=== PATIENT | male | born 1965 | race Caucasian/White ===

== ENCOUNTER 2019-01-13 03:36 | Emergency (ER) | payer OTHER, SELFPAY ==
[2019-01-13 03:40] VITALS: BP 136/87; PULSE 99; RESP 18; TEMP 36.3; O2SAT 100
--- NOTE | 2019-01-13 03:52 | W.ED.GENAD ---
Discharge Plan Disposition Patient Disposition: HOME Discharge Details Chief Complaint: Cellulitis Clinical Impression: Acute paronychia of finger of right hand Primary Care Provider: Maciej Szymanski ED Provider: Yoav Trejo Home Meds and New Rx's Prescriptions: New cephalexin [Keflex] 500 mg capsule 500 mg PO QID Qty: 27 RF: 0 Continued loratadine 10 MG tablet 10 mg PO DAILY PRN RF: 0 TEST STRIPS 1 EACH strip 1 ea Miscellaneous BID Qty: 180 RF: 4 Prilosec OTC 20 MG tablet,delayed release (DR/EC) 1 tab PO BID Qty: 180 RF: 4 ascorbic acid (vitamin C) [Vitamin C] 500 MG tablet 1 tab PO BID RF: 0 fluticasone propionate 16 GM spray,suspension 1 - 2 spr NS DAILY PRNQty: 1 RF: 1 glucosam-chond ug-hfhelg-[id number] ac 1 EACH capsule 2 ea PO BID RF: 0 ENBREL SURECLICK 50 MG/1 ML PEN.INJCTR 50 mg SQ Weekly RF: 0 Jardiance 25 MG tablet 25 mg PO DAILY Qty: 90 RF: 3 metformin 1,000 MG tablet 1,000 mg PO BID Qty: 180 RF: 4 Novolog Flexpen U-100 Insulin 100 UNIT/1 ML insulin pen 2 - 5 SQ DAILY RF: 0 meloxicam 15 mg tablet 15 mg PO DAILY Qty: 60 RF: 6 Lantus Solostar U-100 Insulin 100 unit/mL (3 mL) insulin pen 10 unit IM/SC BID Qty: 3 RF: 12 glipizide 5 mg tablet 10 mg PO BID Qty: 120 RF: 5 No Action BD Insulin Syringe 1 EACH syringe 1 ea Miscellaneous BID Qty: 200 RF: 3 FreeStyle Lite Strips 1 EACH strip 1 ea Miscellaneous TID Qty: 180 RF: 4 pen needle, diabetic [Novofine 32] 32 gauge x 1/4 needle 1 ea Miscellaneous DAILY Qty: 90 RF: 3 pen needle, diabetic [BD Ultra-Fine Estefanía Pen Needle] 32 gauge x 5/32 needle 1 ea Miscellaneous BID Qty: 200 RF: 3 Discharge Instructions Instructions: Paronychia (ED) Additional Instructions: Soak your finger 3-4 times a day for the next 1 week. Please stop biting your nails. Biting your nails predisposes infection. Please contact your primary care physician to arrange follow-up. Return to the ER for any worsening or new concerning symptoms. Referrals: Maciej Szymanski, [Primary Care Provider] - Discharge Data Discharge Date/Time-TO BE ENTERED AT DEPARTURE: 01/13/19 04:25 Medical Decision Making 53-year-old male with insulin-dependent diabetes here with paronychia right fifth digit. Patient has mild surrounding erythema localized to the distal digit. Incision and drainage performed. Given his history of diabetes, I will treat with Keflex. I recommended and reviewed warm soaks. Glucose elevated today 173. Patient advised to monitor closely and take insulin as prescribed. Patient instructed to follow-up with PCP this week for reassessment. I stressed the importance of this. Pt verbalized understanding of importance of timely follow-up for reassessment. HPI General Mode of arrival: ambulatory. Date/Time Provider Initiated Documentation: 01/13/19 03:51. Limitations to Documentation: no limitations. Information obtained by: patient. HPI Narrative: 53-year-old male presents with chief complaint of right fifth digit pain. Patient notes that pain started yesterday. It has become worse. He noticed swelling and tenderness along his nail bed. He has associated redness localized to the area. No associated fever. Patient is a diabetic and compliant with insulin. Related Data Home Medications Medication Instructions Recorded Confirmed loratadine 10 mg PO DAILY PRN tab-cap 12/29/12 01/13/19 Prilosec OTC 1 tab PO BID #180 tab-cap 10/19/14 01/13/19 BD Insulin Syringe #200 syringe 04/19/15 11/10/18 ascorbic acid (vitamin C) [Vitamin 1 tab PO BID 06/02/15 01/13/19 C] fluticasone propionate 1 - 2 spr NS DAILY PRN #1 bottle 10/15/15 01/13/19 glucosam-chond qo-jfpttu-qf ac 2 ea PO BID 09/30/17 01/13/19 FreeStyle Lite Strips #180 strip 11/25/17 11/10/18 Enbrel Sureclick 50 mg SQ Weekly 12/09/17 01/13/19 Jardiance 25 mg PO DAILY #90 tab-cap 01/02/18 01/13/19 metformin 1,000 mg PO BID #180 tab-cap 05/01/18 01/13/19 Novolog Flexpen U-100 Insulin 2 - 5 SQ DAILY 06/10/18 11/10/18 insulin glargine (U-100) 100 10 unit IM/SC BID #3 ml 09/01/18 01/13/19 unit/mL (3 mL) subcutaneous pen meloxicam 15 mg tablet 15 mg PO DAILY #60 tab-cap 09/01/18 01/13/19 pen needle, diabetic 32 gauge x #90 unit 11/06/18 11/10/1810/30 pen needle, diabetic 32 gauge x #200 ndl 11/10/18 11/10/18 glipizide 5 mg tablet 10 mg PO BID #120 tab 11/18/18 01/13/19 cephalexin [Keflex] 500 mg PO QID #27 cap 01/13/19 Previous Rx's Medication Instructions Recorded FreeStyle Lite Strips #180 strip 11/25/17 Jardiance 25 mg PO DAILY #90 tab-cap 01/02/18 metformin 1,000 mg PO BID #180 tab-cap 05/01/18 insulin glargine (U-100) 100 10 unit IM/SC BID #3 ml 09/01/18 unit/mL (3 mL) subcutaneous pen meloxicam 15 mg tablet 15 mg PO DAILY #60 tab-cap 09/01/18 pen needle, diabetic 32 gauge x #90 unit 11/06/1810/30 pen needle, diabetic 32 gauge x #200 ndl 11/10/18 glipizide 5 mg tablet 10 mg PO BID #120 tab 11/18/18 cephalexin [Keflex] 500 mg PO QID #27 cap 01/13/19 Allergies Allergy/AdvReac Type Severity Reaction Status Date / Time Sulfa (Sulfonamide AdvReac Intermediate NAUSEA Verified 01/13/19 03:40 Antibiotics) DUST Allergy Intermediate NASAL Uncoded 01/13/19 03:40 CONGESTION General Stated Complaint: Cellulitis MARIA GUADALUPE: 5 Review of Systems Constitutional Denies fever(s) Integumentary/Breasts Reports as per [facility] Medical History Huang esophagus (Acute) Psoriatic arthritis (Acute 10/02/12) Psoriasis (Acute) Peptic reflux disease (Acute) Osteoporosis (Acute 08/18/15) 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 Grandfather Myocardial infarction Grandfather Myocardial infarction Grandmother No problems noted. Grandmother Myocardial infarction Brother No problems noted. Brother No problems noted. Brother No problems noted. Son Adopted Daughter Adopted Social History Smoking/Tobacco Use Status: Never Alcohol Intake: never Drug use: Never Substance use type: does not use Pets and animals: No Frequency: 5-6 times per week Special yari needs: No Do you feel safe at home: Yes Do you feel safe in your relationship?: Yes Exam Const General: cooperative and healthy appearing Orientation: alert and awake Skin Nails: dystrophic and yellow and thickened Other: Paronychia right fifth digit Course Vital Signs Temperature 36.3 C L 01/13/19 03:40 Pulse 99 H 01/13/19 03:40 Respiratory Rate 18 01/13/19 03:40 Blood Pressure 136/87 01/13/19 03:40 Pulse Oximetry 100 01/13/19 03:40 Temperature 36.3 C L 01/13/19 03:40 Temperature Source Temporal Artery Scan 01/13/19 03:40 Pulse 99 H 01/13/19 03:40 Respiratory Rate 18 01/13/19 03:40 Respiratory Effort 01/13/19 03:40 Blood Pressure 136/87 01/13/19 03:40 Blood Pressure Position Sitting 01/13/19 03:40 Pulse Oximetry 100 01/13/19 03:40 Oxygen Delivery Method Room Air 01/13/19 03:40 Oxygen Flow Rate 0 01/13/19 03:40 Procedures Abscess I/D Site: Hand Side (if applicable): Right Local Anesthetic: Bupivicaine 0.5% (digitial block) Amount of anesthesia used (mL): 2 Technique: Incised with #11 Blade Amount of fluid expressed (mL): 1 Packing used?: None Complications: Other (none) Nerve Block Nerve Block 1: Time out performed: Yes Local Anesthetic: Bupivicaine 0.5% Amount of anesthesia used (mL): 2 Side: right Nerve Blocks: digital Procedure Successful: Yes Patient Tolerated Procedure: well Complications: none Additional Comments: Prepped with betadine and sterile technique observed
--- NOTE | 2019-01-13 03:57 | ED.GENADUL_ITS ---
Discharge Plan Disposition Patient Disposition: HOME Discharge Details Chief Complaint: Cellulitis Clinical Impression: Acute paronychia of finger of right hand Primary Care Provider: Maciej Szymanski ED Provider: Yoav Trejo Home Meds and New Rx's Prescriptions: New cephalexin [Keflex] 500 mg capsule 500 mg PO QID Qty: 27 RF: 0 Continued loratadine 10 MG tablet 10 mg PO DAILY PRN RF: 0 TEST STRIPS 1 EACH strip 1 ea Miscellaneous BID Qty: 180 RF: 4 Prilosec OTC 20 MG tablet,delayed release (DR/EC) 1 tab PO BID Qty: 180 RF: 4 ascorbic acid (vitamin C) [Vitamin C] 500 MG tablet 1 tab PO BID RF: 0 fluticasone propionate 16 GM spray,suspension 1 - 2 spr NS DAILY PRNQty: 1 RF: 1 glucosam-chond ly-gpfnuk-od ac 1 EACH capsule 2 ea PO BID RF: 0 ENBREL SURECLICK 50 MG/1 ML PEN.INJCTR 50 mg SQ Weekly RF: 0 Jardiance 25 MG tablet 25 mg PO DAILY Qty: 90 RF: 3 metformin 1,000 MG tablet 1,000 mg PO BID Qty: 180 RF: 4 Novolog Flexpen U-100 Insulin 100 UNIT/1 ML insulin pen 2 - 5 SQ DAILY RF: 0 meloxicam 15 mg tablet 15 mg PO DAILY Qty: 60 RF: 6 Lantus Solostar U-100 Insulin 100 unit/mL (3 mL) insulin pen 10 unit IM/SC BID Qty: 3 RF: 12 glipizide 5 mg tablet 10 mg PO BID Qty: 120 RF: 5 No Action BD Insulin Syringe 1 EACH syringe 1 ea Miscellaneous BID Qty: 200 RF: 3 FreeStyle Lite Strips 1 EACH strip 1 ea Miscellaneous TID Qty: 180 RF: 4 pen needle, diabetic [Novofine 32] 32 gauge x 1/4 needle 1 ea Miscellaneous DAILY Qty: 90 RF: 3 pen needle, diabetic [BD Ultra-Fine Estefanía Pen Needle] 32 gauge x 5/32 needle 1 ea Miscellaneous BID Qty: 200 RF: 3 Discharge Instructions Instructions: Paronychia (ED) Additional Instructions: Soak your finger 3-4 times a day for the next 1 week. Please stop biting your nails. Biting your nails predisposes infection. Please contact your primary care physician to arrange follow-up. Return to the ER for any worsening or new concerning symptoms. Referrals: Maciej Szymanski, [Primary Care Provider] - Discharge Data Discharge Date/Time-TO BE ENTERED AT DEPARTURE: 01/13/19 04:25 Medical Decision Making 53-year-old male with insulin-dependent diabetes here with paronychia right fifth digit. Patient has mild surrounding erythema localized to the distal digit. Incision and drainage performed. Given his history of diabetes, I will treat with Keflex. I recommended and reviewed warm soaks. Glucose elevated today 173. Patient advised to monitor closely and take insulin as prescribed. Patient instructed to follow-up with PCP this week for reassessment. I stressed the importance of this. Pt verbalized understanding of importance of timely follow-up for reassessment. HPI General Mode of arrival: ambulatory . Date/Time Provider Initiated Documentation: 01/13/19 03:51 . Limitations to Documentation: no limitations . Information obtained by: patient . HPI Narrative: 53-year-old male presents with chief complaint of right fifth digit pain. Patient notes that pain started yesterday. It has become worse. He noticed swelling and tenderness along his nail bed. He has associated redness localized to the area. No associated fever. Patient is a diabetic and compliant with insulin. Related Data Home Medications Medication Instructions Recorded Confirmed loratadine 10 mg PO DAILY PRN tab-cap 12/29/12 01/13/19 Prilosec OTC 1 tab PO BID #180 tab-cap 10/19/14 01/13/19 BD Insulin Syringe #200 syringe 04/19/15 11/10/18 ascorbic acid (vitamin C) [Vitamin 1 tab PO BID 06/02/15 01/13/19 C] fluticasone propionate 1 - 2 spr NS DAILY PRN #1 bottle 10/15/15 01/13/19 glucosam-chond ml-aajrua-an ac 2 ea PO BID 09/30/17 01/13/19 FreeStyle Lite Strips #180 strip 11/25/17 11/10/18 Enbrel Sureclick 50 mg SQ Weekly 12/09/17 01/13/19 Jardiance 25 mg PO DAILY #90 tab-cap 01/02/18 01/13/19 metformin 1,000 mg PO BID #180 tab-cap 05/01/18 01/13/19 Novolog Flexpen U-100 Insulin 2 - 5 SQ DAILY 06/10/18 11/10/18 insulin glargine (U-100) 100 10 unit IM/SC BID #3 ml 09/01/18 01/13/19 unit/mL (3 mL) subcutaneous pen meloxicam 15 mg tablet 15 mg PO DAILY #60 tab-cap 09/01/18 01/13/19 pen needle, diabetic 32 gauge x #90 unit 11/06/18 11/10/1810/30 pen needle, diabetic 32 gauge x #200 ndl 11/10/18 11/10/18 glipizide 5 mg tablet 10 mg PO BID #120 tab 11/18/18 01/13/19 cephalexin [Keflex] 500 mg PO QID #27 cap 01/13/19 Previous Rx's Medication Instructions Recorded FreeStyle Lite Strips #180 strip 11/25/17 Jardiance 25 mg PO DAILY #90 tab-cap 01/02/18 metformin 1,000 mg PO BID #180 tab-cap 05/01/18 insulin glargine (U-100) 100 10 unit IM/SC BID #3 ml 09/01/18 unit/mL (3 mL) subcutaneous pen meloxicam 15 mg tablet 15 mg PO DAILY #60 tab-cap 09/01/18 pen needle, diabetic 32 gauge x #90 unit 11/06/1810/30 pen needle, diabetic 32 gauge x #200 ndl 11/10/18 glipizide 5 mg tablet 10 mg PO BID #120 tab 11/18/18 cephalexin [Keflex] 500 mg PO QID #27 cap 01/13/19 Allergies Allergy/AdvReac Type Severity Reaction Status Date / Time Sulfa (Sulfonamide AdvReac Intermediate NAUSEA Verified 01/13/19 03:40 Antibiotics) DUST Allergy Intermediate NASAL Uncoded 01/13/19 03:40 CONGESTION General Stated Complaint: Cellulitis MARIA GUADALUPE: 5 Review of Systems Constitutional Denies fever(s) Integumentary/Breasts Reports as per [facility] Medical History Huang esophagus (Acute) Psoriatic arthritis (Acute 10/02/12) Psoriasis (Acute) Peptic reflux disease (Acute) Osteoporosis (Acute 08/18/15) 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 Grandfather Myocardial infarction Grandfather Myocardial infarction Grandmother No problems noted. Grandmother Myocardial infarction Brother No problems noted. Brother No problems noted. Brother No problems noted. Son Adopted Daughter Adopted Social History Smoking/Tobacco Use Status: Never Alcohol Intake: never Drug use: Never Substance use type: does not use Pets and animals: No Frequency: 5-6 times per week Special yari needs: No Do you feel safe at home: Yes Do you feel safe in your relationship?: Yes Exam Const General: cooperative and healthy appearing Orientation: alert and awake Skin Nails: dystrophic and yellow and thickened Other: Paronychia right fifth digit Course Vital Signs Temperature 36.3 C L 01/13/19 03:40 Pulse 99 H 01/13/19 03:40 Respiratory Rate 18 01/13/19 03:40 Blood Pressure 136/87 01/13/19 03:40 Pulse Oximetry 100 01/13/19 03:40 Temperature 36.3 C L 01/13/19 03:40 Temperature Source Temporal Artery Scan 01/13/19 03:40 Pulse 99 H 01/13/19 03:40 Respiratory Rate 18 01/13/19 03:40 Respiratory Effort 01/13/19 03:40 Blood Pressure 136/87 01/13/19 03:40 Blood Pressure Position Sitting 01/13/19 03:40 Pulse Oximetry 100 01/13/19 03:40 Oxygen Delivery Method Room Air 01/13/19 03:40 Oxygen Flow Rate 0 01/13/19 03:40 Procedures Abscess I/D Site: Hand Side (if applicable): Right Local Anesthetic: Bupivicaine 0.5% (digitial block) Amount of anesthesia used (mL): 2 Technique: Incised with #11 Blade Amount of fluid expressed (mL): 1 Packing used?: None Complications: Other (none) Nerve Block Nerve Block 1: Time out performed: Yes Local Anesthetic: Bupivicaine 0.5% Amount of anesthesia used (mL): 2 Side: right Nerve Blocks: digital Procedure Successful: Yes Patient Tolerated Procedure: well Complications: none Additional Comments: Prepped with betadine and sterile technique observed
[2019-01-13] MEDS: Bupivacaine 0.5% Pres-Free 30 ML VIAL IJ (04:00)
[2019-01-13] MEDS: Cephalexin 500 MG CAP PO (04:08)
== END 2019-01-13 04:26 | disposition home or self-care (01) ==
LOC: ER 03:59
PROVIDERS: Emergency Provider Student in an Organized Health Care Education/Training Program; PCP Emergency Medicine
DX: L03.011 Cellulitis of right finger (principal); E11.9 Type 2 diabetes mellitus without complications; Z79.4 Long term (current) use of insulin
CPT/HCPCS: 10060; 36416; 82962

== ENCOUNTER 2019-01-27 16:29 | Outpatient (CLI) | payer OTHER, SELFPAY ==
[2019-01-27 18:31] LABS: Anion Gap 9.5 mmol/L (3-11); BUN 24 mg/dL (7-18); CO2 28.5 mmol/L (21.0-32.0); CREATININE 1.42 mg/dL (0.70-1.30); Chloride 98 mmol/L (98-107); Estimated GFR 52.35 (mL/min/1.73m2); Glucose 368 mg/dL (70-100); Potassium 4.9 mmol/L (3.5-5.1); Sodium 136 mmol/L (136-145)
[2019-01-27 18:50] LABS: Hemoglobin A1C 9.4 % (4.5-6.2)
== END 2019-01-27 16:49 ==
PROVIDERS: PCP Emergency Medicine; Visit Provider Emergency Medicine
DX: I10 Essential (primary) hypertension (principal); E11.9 Type 2 diabetes mellitus without complications; K22.70 Barrett's esophagus without dysplasia
CPT/HCPCS: 36415; 80048; 83036

== ENCOUNTER 2019-09-07 15:02 | Outpatient (CLI) | payer OTHER, SELFPAY ==
[2019-09-07 16:23] LABS: Hemoglobin A1C 10.6 % (4.5-6.2)
[2019-09-07 16:24] LABS: Anion Gap 8.5 mmol/L (3-11); BUN 22 mg/dL (7-18); CO2 27.5 mmol/L (21.0-32.0); CREATININE 1.35 mg/dL (0.70-1.30); Calcium 9.1 mg/dL (8.5-10.1); Chloride 102 mmol/L (98-107); Cholesterol 131 mg/dL (50-200); Glucose 195 mg/dL (70-100); HDL Cholesterol 45 mg/dL (40-60); Potassium 4.9 mmol/L (3.5-5.1); Sodium 138 mmol/L (136-145)
[2019-09-07 16:29] LABS: COMMENT (LAB VIEW ONLY) 54.47 mg/dL; Microalb ug/mg Crea 4.6 ug/mg Cr
[2019-09-07 16:38] LABS: Triglyceride < 25 mg/dL (30-150)
[2019-09-07 16:52] LABS: LDL CHOLESTEROL 84 mg/dL (<100)
== END 2019-09-07 15:22 ==
PROVIDERS: PCP Emergency Medicine; Visit Provider Emergency Medicine
DX: E11.9 Type 2 diabetes mellitus without complications (principal); I10 Essential (primary) hypertension; Z79.4 Long term (current) use of insulin; Z13.89 Encounter for screening for other disorder
CPT/HCPCS: 36415; 80048; 80061; 83721; 82043; 82570; 83036

== ENCOUNTER 2020-03-22 16:12 | Emergency (ER) | payer OTHER, SELFPAY ==
--- NOTE | 2020-03-22 16:15 | DI.RAD_ITS ---
EXAM: XR FINGER RT MIDDLE CLINICAL HISTORY: pain swelling, tip. TECHNIQUE: 2D digital imaging was performed. COMPARISON: CR LEFT WRIST LIMITED from 11/26/2012 FINDINGS: BONES: No acute fracture is present. No bony destructive lesion is seen. JOINTS: No dislocation present. SOFT TISSUE: Soft tissue swelling is seen around the distal phalanx. No abnormal gas collection or f oreign body is seen. No soft tissue calcification or mass is visible. IMPRESSION: Soft tissue swelling of the distal phalanx. No evidence of fracture or foreign body.. DATA REPOSITORY: RADIATION DOSE DELIVERED:
--- NOTE | 2020-03-22 16:33 | ED.GENADUL_ITS ---
Discharge Plan Disposition Patient Disposition: HOME Condition: Stable Discharge Details Chief Complaint: Vascular Clinical Impression: Felon of finger of right hand Primary Care Provider: Maciej Szymanski ED Provider: Olive Pan Home Meds and New Rx's Prescriptions: New amoxicillin-pot clavulanate [Augmentin] 875-125 mg tablet 1 tab PO BID 10 Days Qty: 20 RF: 0 Continued loratadine 10 MG tablet 10 mg PO DAILY PRN RF: 0 TEST STRIPS 1 EACH strip 1 ea Miscellaneous BID Qty: 180 RF: 4 Prilosec OTC 20 MG tablet,delayed release (DR/EC) 1 tab PO BID Qty: 180 RF: 4 (DME) BD Insulin Syringe 1 EACH syringe 1 ea Miscellaneous BID Qty: 200 RF: 3 ascorbic acid (vitamin C) [Vitamin C] 500 MG tablet 1 tab PO BID RF: 0 fluticasone propionate 16 GM spray,suspension 1 - 2 spr NS DAILY PRNQty: 1 RF: 1 glucosam-chond af-jotfqz-tr ac 1 EACH capsule 2 ea PO BID RF: 0 ENBREL SURECLICK 50 MG/1 ML PEN.INJCTR 50 mg SQ Weekly RF: 0 (DME) pen needle, diabetic [Novofine 32] 32 gauge x 1/4 needle 1 ea Miscellaneous DAILY Qty: 90 RF: 3 (DME) FreeStyle Lite Strips strip 1 ea Miscellaneous TID Qty: 180 RF: 4 metformin 1,000 mg tablet 1,000 mg PO BID Qty: 180 RF: 4 glipizide 5 mg tablet 10 mg PO BID Qty: 360 RF: 3 insulin aspart U-100 [Novolog Flexpen U-100 Insulin] 100 unit/mL (3 mL) i nsulin pen 5 unit subcut DAILY Qty: 15 RF: 0 Lantus Solostar U-100 Insulin 100 unit/mL (3 mL) insulin pen 10 unit IM/SC BID Qty: 15 RF: 12 meloxicam 15 mg tablet 15 mg PO DAILY Qty: 60 RF: 1 (DME) pen needle, diabetic [BD Ultra-Fine Estefanía Pen Needle] 32 gauge x 5/32 needle 1 ea Miscellaneous BID Qty: 200 RF: 3 Jardiance 25 mg tablet 25 mg PO DAILY Qty: 90 RF: 3 Discharge Instructions Instructions: Cellulitis (ED) Additional Instructions: Follow up with primary care provider in 3-5 days. Return to ED sooner if any worsening or concerns. Increase oral fluids. Keep dressing on for 12 to 24 hours. He can do warm soaks with soap and water daily. Keep clean and dry. Return for any worsening infection, red streaks or swelling. Take antibiotics as directed. Follow-up with orthopedics within 3 to 5 days. Referrals: Maciej Szymanski DO [Primary Care Provider] - Odilon Carmona MD [ [facility] STAFF PHYSICIAN] - Medical Decision Making 54-year-old diabetic male presents with right middle finger tip infection this is consistent with a felon. He denies any known injury. No fever or chills. He agrees verbally to a digital block with an I&D. At this time imaging was ordered to rule out foreign body versus osteomyelitis. TECHNIQUE: Imaging protocol: XR Right fingers. Views: Minimum 2 views. COMPARISON: No relevant prior studies available. FINDINGS: Bones/joints: No acute fracture. Joint spaces are maintained. Soft tissues: Soft tissue edema about the proximal interphalangeal joint. No radiodense foreign body. IMPRESSION: Soft tissue edema about the proximal interphalangeal joint without underlying fracture or joint malalignment. Thank you for allowing us to participate in the care of your patient. Digital block performed as noted in procedure note above, incision and drainage the distal tip to express underlying abscess. Moderate amount of purulent serosanguineous fluid expressed. Patient tolerated well. Xeroform gauze nonadherent dressing and pressure dressing applied. Patient instructed on home care, verbalized understanding. Given strict return instructions to return for any signs of infection or worsening. Patient was given Augmentin tablet in department prior to discharge. Placed on Augmentin twice daily x10 days. Instructed to follow-up with orthopedics and placed on care management list. Differential diagnosis includes felon, paronychia, hematoma, retained foreign body, osteomyelitis, HPI General Date/Time Provider Initiated Documentation: 03/22/20 16:14 . Limitations to Documentation: no limitations . Information obtained by: patient . HPI Narrative: 54-year-old male presents with right middle finger tip infection for approximately 2 days. He is a diabetic and denies any injury. He denies any fever chills or any other symptoms. Related Data Home Medications Medication Instructions Recorded Confirmed loratadine 10 mg PO DAILY PRN tab-cap 12/29/12 09/07/19 Prilosec OTC 1 tab PO BID #180 tab-cap 10/19/14 09/07/19 BD Insulin Syringe #200 syringe 04/19/15 09/07/19 ascorbic acid (vitamin C) [Vitamin 1 tab PO BID 06/02/15 09/07/19 C] fluticasone propionate 1 - 2 spr NS DAILY PRN #1 bottle 10/15/15 09/07/19 glucosam-chond tx-tqbvcn-rc ac 2 ea PO BID 09/30/17 09/07/19 Enbrel Sureclick 50 mg SQ Weekly 12/09/17 09/07/19 pen needle, diabetic 32 gauge x #90 unit 11/06/18 09/07/1910/30 blood sugar diagnostic #180 strip 04/23/19 09/07/19 metformin 1,000 mg tablet 1,000 mg PO BID #180 tab-cap 06/22/19 09/07/19 glipizide 5 mg tablet 10 mg PO BID #360 tab 07/30/19 09/07/19 insulin aspart U-100 100 unit/mL 5 unit SUBCUT DAILY #15 ml 11/25/19 (3 mL) subcutaneous pen insulin glargine 100 unit/mL (3 10 unit IM/SC BID #15 ml 11/29/19 mL) subcutaneous pen meloxicam 15 mg tablet 15 mg PO DAILY #60 tab-cap 11/29/19 pen needle, diabetic 32 gauge x #200 ndl 12/31/19 empagliflozin 25 mg tablet 25 mg PO DAILY #90 tab-cap 02/18/20 amoxicillin-pot clavulanate 1 tab PO BID 10 Days #20 tab 03/22/20 [Augmentin] Previous Rx's Medication Instructions Recorded pen needle, diabetic 32 gauge x #90 unit 11/06/1810/30 blood sugar diagnostic #180 strip 04/23/19 metformin 1,000 mg tablet 1,000 mg PO BID #180 tab-cap 06/22/19 glipizide 5 mg tablet 10 mg PO BID #360 tab 07/30/19 insulin aspart U-100 100 unit/mL 5 unit SUBCUT DAILY #15 ml 11/25/19 (3 mL) subcutaneous pen insulin glargine 100 unit/mL (3 10 unit IM/SC BID #15 ml 11/29/19 mL) subcutaneous pen meloxicam 15 mg tablet 15 mg PO DAILY #60 tab-cap 11/29/19 pen needle, diabetic 32 gauge x #200 ndl 12/31/19 empagliflozin 25 mg tablet 25 mg PO DAILY #90 tab-cap 02/18/20 amoxicillin-pot clavulanate 1 tab PO BID 10 Days #20 tab 03/22/20 [Augmentin] Allergies Allergy/AdvReac Type Severity Reaction Status Date / Time Sulfa (Sulfonamide AdvReac Intermediate NAUSEA Verified 09/07/19 14:15 Antibiotics) DUST Allergy Intermediate NASAL Uncoded 01/13/19 03:40 CONGESTION General Stated Complaint: Vascular MARIA GUADALUPE: 4 Review of Systems Narrative: Constitutional: Negative for weight loss, alert and oriented, well groomed, normal body habitus, appears comfortable. HEENT: Denies trauma, headaches, blurry vision, nasal discharge, sore throat, trouble swallowing. Chest: Denies chest pain, palpitations, irregular rhythm, hypertension. Respiratory: Denies Shortness of breath, cough, hemoptysis. GI: Denies abdominal pain, nausea, vomiting, diarrhea, constipation. : Denies dysuria, hematuria, flank pain, rectal bleeding. Extremities: Right middle fingertip infection. Neuro: Denies dizziness, blurry vision, weakness, syncope, headache or facial numbness. Hematologic: Denies easy bruising, intolerance to heat or cold, hair loss. All systems reviewed & are unremarkable except as noted in HPI and below [facility] Medical History Anemia (Acute 08/18/15) iron deficiency extensive GI workup. Seen Heme at [facility]. idiopathic but perhaps occult GI bleed Arthritis (Acute 10/02/12) PSORIATIC Huang esophagus (Acute) Cataract (Acute) O.D. 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 Maternal Grandfather Myocardial infarction Paternal Grandfather Myocardial infarction Maternal Grandmother No problems noted. Paternal Grandmother Myocardial infarction Brother No problems noted. Brother No problems noted. Brother No problems noted. Son Adopted Daughter Adopted Social History Smoking/Tobacco Use Status: Never Alcohol Intake: never Drug use: Never Substance use type: does not use Caregiver/Support person: No Household members: spouse Housing: apartment Communication Needs: None current occupation: [employer] Pets and animals: No Sexually active: Yes Do you think of yourself as: straight/heterosexual Current gender identity: female What is your relationship status?: How often do you talk on the phone with friends or family?: three or more times per week How often do you get together with friends or relatives?: three or more times per week How often do you attend hinduism or hinduism services?: decline to answer Do you belong to any clubs or organized social groups?: yes Panel score (0-1 are the most socially isolated patients): 3 What type of physical activity do you participate in: decline to answer Duration: decline to answer Frequency: decline to answer Sandrita/Synagogue: None Special sandrita needs: No Seatbelt use: always Helmet use: No Drive intox or ride w/intox driver/merchandiser: No Do you feel safe at home: Yes Do you feel safe in your relationship?: Yes Exam Narrative Exam Narrative: Constitutional: Alert and oriented x3. Appears stated age. Normal body habitus. Head: Normocephalic, no trauma. Eyes: Pupils PERRLA, Red reflex noted, EOM's intact. Eyelids symmetrical without lesions, discharge, or swelling. ENT: Bilateral TM's WNL, External ear normal to inspection, no mastoid TTP, swelling, or erythema, Nasal turbinates WNL, no nasal discharge. Normal dentition, Posterior pharynx WNL, no exudate. Chest: RRR, Normal S1, S2, distal pulses intact. Resp: Lungs clear to auscultation bilaterally, no wheezes, rales, or rhonchi. Musculoskeletal: Normal gait, 5/5 strength to all four extremities. Skin: No suspicious rashes or lesions. Capillary refill less than 2 sec. distal tip right middle finger swollen, area of darkened tissue noted, tender to palpation. This is consistent with a felon. Neurologic: Cranial nerves II-XII intact. Alert and oriented x 3. DTR's intact. Hematologic/Lymphatic: No ecchymosis, no lymphadenopathy. Course Vital Signs Vital signs: Temperature Source Skin 03/22/20 16:26 Blood Pressure Position Sitting 03/22/20 16:26 Oxygen Delivery Method Room Air 03/22/20 16:26 Oxygen Flow Rate 0 03/22/20 16:26 Pain Level 4 03/22/20 16:26 Procedures Nerve Block Nerve Block 1: Time out performed: Yes Local Anesthetic: Lidocaine 1% and Bupivicaine 0.5% Amount of anesthesia used (mL): 4 Side: right Nerve Blocks: digital (Ring block base of right middle finger) Procedure Successful: Yes Patient Tolerated Procedure: well and no complications Complications: none Other Description: Incision and drainage. Small incision to the distal tip of the medial aspect of the right middle finger. Moderate amount of purulent and serosanguineous fluid expressed. Patient tolerated well. Xeroform gauze placed and pressure dressing.
--- NOTE | 2020-03-22 17:19 | DI.VRAD_ITS ---
PROCEDURE INFORMATION: Exam: XR Right Finger(s) Exam date and time: 03/22/2020 5:09 PM Age: 54 years old Clinical indication: Pain; Finger(s); Right TECHNIQUE: Imaging protocol: XR Right fingers. Views: Minimum 2 views. COMPARISON: No relevant prior studies available. FINDINGS: Bones/joints: No acute fracture. Joint spaces are maintained. Soft tissues: Soft tissue edema about the proximal interphalangeal joint. No radiodense foreign body. IMPRESSION: Soft tissue edema about the proximal interphalangeal joint without underlying fracture or joint malalignment. Dictated and Authenticated by: Juan Cross MD. Ordering:DANUTA Schaefer MD
[2020-03-22 18:06] VITALS: BP 124/86; PULSE 94; RESP 16; TEMP 36.6; O2SAT 95
[2020-03-22] MEDS: Amoxicillin 875/Clav. 125 TAB PO (18:08)
[2020-03-22] MEDS: Bupivacaine 0.5% Pres-Free 30 ML VIAL IJ (18:08)
[2020-03-22] MEDS: Lidocaine 1% Multi-Dose 50 ML VIAL IJ (18:09)
== END 2020-03-22 18:39 | disposition home or self-care (01) ==
PROVIDERS: Emergency Provider Registered Nurse Emergency; PCP Emergency Medicine
DX: L03.011 Cellulitis of right finger (principal); E11.65 Type 2 diabetes mellitus with hyperglycemia; Z79.4 Long term (current) use of insulin
CPT/HCPCS: 10060; 99283; 73140; 99282

== ENCOUNTER 2020-05-19 21:39 | Outpatient (REF) | payer OTHER, SELFPAY ==
[2020-05-19 20:55] LABS: Abs Immature Grans 0.01 k/cumm (0.0-0.09); Absolute Basophil Count 0.06 k/cumm (0.0-0.2); Absolute Eosinophil Count 0.26 k/cumm (0.0-0.7); Absolute Lymphocyte Count 2.03 k/cumm (1.2-3.4); Absolute Monocyte Count 0.73 k/cumm (0.11-0.7); Absolute Neutrophil Count 3.91 k/cumm (1.2-6.7); Basophils % 0.9; Eosinophils % 3.7; HCT 45.3 % (40.0-50.0); HGB 15.3 g/dL (13.5-17.5); Immature Grans % 0.1 %; Mean Corp. HGB Concentration 33.8 g/dL (32.0-36.0); Mean Corpuscular Volume 82.8 fL (80-95); Mean Platelet Volume 9.4 fL (8.0-11.0); Monocytes % 10.4; Neutrophils % 55.9; Platelet Count 411 x1000/uL (130-400); RBC 5.47 m/cumm (4.50-6.00)
[2020-05-19 21:11] LABS: ALT 28 U/L (16-63); AST 18 U/L (15-37); Albumin 4.7 g/dL (3.4-5.0); Alkaline Phosphatase 118 U/L (46-116); Anion Gap 10.2 mmol/L (3-11); BUN 18 mg/dL (7-18); Bilirubin, Total 0.4 mg/dL (0.2-1.0); C-Reactive Protein 0.12 mg/dL (0.0-0.3); CO2 27.8 mmol/L (21.0-32.0); CREATININE 1.26 mg/dL (0.70-1.30); Calcium 9.6 mg/dL (8.5-10.1); Chloride 100 mmol/L (98-107); Estimated GFR 59.87 (mL/min/1.73m2); Glucose 186 mg/dL (74-106); Potassium 4.5 mmol/L (3.5-5.1); Sodium 138 mmol/L (136-145); Total Protein 8.2 g/dL (6.4-8.2)
[2020-05-19 21:27] LABS: Hemoglobin A1C 9.6 % (3.8-5.6)
[2020-05-19 21:32] LABS: ESR 4 mm/hr (1-20)
== END 2020-05-19 21:59 ==
LOC: LBN 21:39
PROVIDERS: PCP Emergency Medicine; Visit Provider Emergency Medicine
DX: R63.4 Abnormal weight loss (principal); E11.9 Type 2 diabetes mellitus without complications; E03.9 Hypothyroidism, unspecified
CPT/HCPCS: 80053; 85652; 83036; 84443; 85025; 86140

== ENCOUNTER 2020-06-14 08:42 | Emergency (ER) | payer OTHER, SELFPAY ==
--- NOTE | 2020-06-14 09:04 | W.ED.GENAD ---
Discharge Plan Disposition Patient Disposition: HOME Condition: Stable Discharge Details Chief Complaint: DentalOral Clinical Impression: Abscess of buccal space of mouth, Wound, open, nasal cavity Primary Care Provider: Maciej Szymanski ED Provider: Olive Pan Home Meds and New Rx's Prescriptions: New clindamycin HCl 300 mg capsule 300 mg PO BID 10 Days Qty: 20 RF: 0 Continued loratadine 10 MG tablet 10 mg PO DAILY PRN RF: 0 TEST STRIPS 1 EACH strip 1 ea Miscellaneous BID Qty: 180 RF: 4 omeprazole magnesium [Prilosec OTC] 20 MG tablet,delayed release (DR/EC) 1 tab PO BID Qty: 180 RF: 4 (DME) BD Insulin Syringe 1 EACH syringe 1 ea Miscellaneous BID Qty: 200 RF: 3 ascorbic acid (vitamin C) [Vitamin C] 500 MG tablet 1 tab PO BID RF: 0 fluticasone propionate 16 GM spray,suspension 1 - 2 spr NS DAILY PRNQty: 1 RF: 1 glucosam-chond hx-qjdvxf-dy ac 1 EACH capsule 2 ea PO BID RF: 0 ENBREL SURECLICK 50 MG/1 ML PEN.INJCTR 50 mg SQ Weekly RF: 0 (DME) FreeStyle Lite Strips strip 1 ea Miscellaneous TID Qty: 180 RF: 4 metformin 1,000 mg tablet 1,000 mg PO BID Qty: 180 RF: 4 glipizide 5 mg tablet 10 mg PO BID Qty: 360 RF: 3 insulin aspart U-100 [Novolog Flexpen U-100 Insulin] 100 unit/mL (3 mL) insulin pen 5 unit subcut DAILY Qty: 15 RF: 0 Lantus Solostar U-100 Insulin 100 unit/mL (3 mL) insulin pen 10 unit IM/SC BID Qty: 15 RF: 12 (DME) pen needle, diabetic [BD Ultra-Fine Estefanía Pen Needle] 32 gauge x 5/32 needle 1 ea Miscellaneous BID Qty: 200 RF: 3 Jardiance 25 mg tablet 25 mg PO DAILY Qty: 90 RF: 3 meloxicam 15 mg tablet 15 mg PO DAILY Qty: 60 RF: 1 (DME) pen needle, diabetic [Novofine 32] 32 gauge x 1/4 needle 1 ea Miscellaneous DAILY Qty: 90 RF: 3 (DME) pen needle, diabetic [ReliOn Pen Scobey] 32 gauge x 5/32 needle See Rx Instructions .ROUTE .MEDSUPPLY Qty: 100 RF: 3 Discharge Instructions Instructions: Abscess (ED) Additional Instructions: Practice good oral hygiene. Rinse mouth after eating 3 times a day. Take antibiotics as directed. Return to the ED for any worsening swelling, drainage, fever, pain or fatigue or confusion or any concerns. Follow up with primary care provider in 3-5 days. Return to ED sooner if any worsening or concerns. Increase oral fluids. Please take Tylenol with food every 4-6 hours as needed for pain and swelling. Referrals: Maciej Szymanski DO [Primary Care Provider] - Medical Decision Making 54-year-old male presents with a right nare approximately 4 days ago now increased swelling tenderness radiates down into his upper lip. In the mucous membranes there is a swollen area of possible fluctuance with an abscess patient is a diabetic, was treated with antibiotics in February for a finger infection. Plan at this time is to do needle aspiration incision and drainage for possible fluid abscess patient agrees to this, will obtain a wound culture and place patient on antibiotics. Needle aspiration attempted I&D note above, patient tolerated with difficulty complaining of pain, small amount of purulent drainage aspirated, wound group swab obtained sent to lab is pending at this time. Patient is allergic to sulfa will place patient on clindamycin 2 times a day for possible MRSA. This text was generated using [employer]zen[employer] system, please disregard any oddities of phrase or misspellings. HPI General Mode of arrival: ambulatory. Date/Time Provider Initiated Documentation: 06/14/20 08:44. Limitations to Documentation: no limitations. Information obtained by: patient. HPI Narrative: 54-year-old male presents with a right nare approximately 4 days ago now increased swelling tenderness radiates down into his upper lip. In the mucous membranes there is a swollen area of possible fluctuance with an abscess patient is a diabetic, was treated with antibiotics in February for a finger infection. Related Data Home Medications Medication Instructions Recorded Confirmed loratadine 10 mg PO DAILY PRN tab-cap 12/29/12 05/19/20 omeprazole magnesium [Prilosec OTC] 1 tab PO BID #180 tab-cap 10/19/14 05/19/20 BD Insulin Syringe #200 syringe 04/19/15 05/19/20 ascorbic acid (vitamin C) [Vitamin 1 tab PO BID 06/02/15 05/19/20 C] fluticasone propionate 1 - 2 spr NS DAILY PRN #1 bottle 10/15/15 05/19/20 glucosam-chond yj-jvbtrj-je ac 2 ea PO BID 09/30/17 05/19/20 Enbrel Sureclick 50 mg SQ Weekly 12/09/17 05/19/20 blood sugar diagnostic #180 strip 04/23/19 05/19/20 metformin 1,000 mg tablet 1,000 mg PO BID #180 tab-cap 06/22/19 05/19/20 glipizide 5 mg tablet 10 mg PO BID #360 tab 07/30/19 05/19/20 insulin aspart U-100 100 unit/mL 5 unit SUBCUT DAILY #15 ml 11/25/19 05/19/20 (3 mL) subcutaneous pen insulin glargine 100 unit/mL (3 10 unit IM/SC BID #15 ml 11/29/19 05/19/20 mL) subcutaneous pen pen needle, diabetic 32 gauge x #200 ndl 12/31/19 05/19/20 empagliflozin 25 mg tablet 25 mg PO DAILY #90 tab-cap 02/18/20 05/19/20 meloxicam 15 mg tablet 15 mg PO DAILY #60 tab-cap 04/21/20 05/19/20 pen needle, diabetic 32 gauge x #90 unit 05/31/2010/30 pen needle, diabetic 32 gauge x #100 each 06/09/20 clindamycin HCl 300 mg PO BID 10 Days #20 cap 06/14/20 Previous Rx's Medication Instructions Recorded blood sugar diagnostic #180 strip 04/23/19 metformin 1,000 mg tablet 1,000 mg PO BID #180 tab-cap 06/22/19 glipizide 5 mg tablet 10 mg PO BID #360 tab 07/30/19 insulin aspart U-100 100 unit/mL 5 unit SUBCUT DAILY #15 ml 11/25/19 (3 mL) subcutaneous pen insulin glargine 100 unit/mL (3 10 unit IM/SC BID #15 ml 11/29/19 mL) subcutaneous pen pen needle, diabetic 32 gauge x #200 ndl 12/31/19 empagliflozin 25 mg tablet 25 mg PO DAILY #90 tab-cap 02/18/20 meloxicam 15 mg tablet 15 mg PO DAILY #60 tab-cap 04/21/20 pen needle, diabetic 32 gauge x #90 unit 05/31/2010/30 pen needle, diabetic 32 gauge x #100 each 06/09/20 clindamycin HCl 300 mg PO BID 10 Days #20 cap 06/14/20 Allergies Allergy/AdvReac Type Severity Reaction Status Date / Time Sulfa (Sulfonamide AdvReac Intermediate NAUSEA Verified 06/14/20 09:16 Antibiotics) DUST Allergy Intermediate NASAL Uncoded 06/14/20 09:16 CONGESTION General MARIA GUADALUPE: 4 Review of Systems All systems reviewed & are unremarkable except as noted in HPI and below ENT Ears, Nose, Mouth, and Throat: Reports facial pain and Reports nose pain [facility] Medical History (Updated 06/14/20 @ 09:36 by Olive Pan) Anemia (Acute 08/18/15) iron deficiency extensive GI workup. Seen Heme at [facility]. idiopathic but perhaps occult GI bleed Arthritis (Acute 10/02/12) PSORIATIC Huang esophagus (Acute) Cataract (Acute) O.D. 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 Maternal Grandfather Myocardial infarction Paternal Grandfather Myocardial infarction Maternal Grandmother No problems noted. Paternal Grandmother Myocardial infarction Brother No problems noted. Brother No problems noted. Brother No problems noted. Son Adopted Daughter Adopted Social History Smoking/Tobacco Use Status: Never Alcohol Intake: never Drug use: Never Substance use type: does not use Caregiver/Support person: No Household members: spouse Housing: apartment Communication Needs: None current occupation: [employer] Pets and animals: No Sexually active: Yes Do you think of yourself as: straight/heterosexual Current gender identity: female What is your relationship status?: How often do you talk on the phone with friends or family?: three or more times per week How often do you get together with friends or relatives?: three or more times per week How often do you attend episcopal or mandaen services?: decline to answer Do you belong to any clubs or organized social groups?: yes Panel score (0-1 are the most socially isolated patients): 3 What type of physical activity do you participate in: decline to answer Duration: decline to answer Frequency: decline to answer Sandrita/Spiritism: None Special sandrita needs: No Seatbelt use: always Helmet use: No Drive intox or ride w/intox hearse driver: No Do you feel safe at home: Yes Do you feel safe in your relationship?: Yes Exam Narrative Exam Narrative: Constitutional: Alert and oriented x3. Appears stated age. Normal body habitus. Head: Normocephalic, no trauma. Eyes: Pupils PERRLA, Red reflex noted, EOM's intact. Eyelids symmetrical without lesions, discharge, or swelling. ENT: Bilateral TM's WNL, External ear normal to inspection, no mastoid TTP, swelling, or erythema, Nasal turbinate is boggy and erythemic on the right there is a small wound noted to the floor of the right nare, no nasal discharge. There is a swollen area just right under the right lip fold with central fluctuance. See diagram below. Poor dentition, Posterior pharynx WNL, no exudate. Chest: RRR, Normal S1, S2, distal pulses intact. Resp: Lungs clear to auscultation bilaterally, no wheezes, rales, or rhonchi. Musculoskeletal: Normal gait, 5/5 strength to all four extremities. Skin: No suspicious rashes or lesions. Capillary refill less than 2 sec. Neurologic: Cranial nerves II-XII intact. Alert and oriented x 3. DTR's intact. Hematologic/Lymphatic: No ecchymosis, no lymphadenopathy. [facility] Nose image: 1. Swelling, slightly erythemic Mouth/tongue images: 1. Internal buccal abscess noted to gum line Procedures Abscess I/D Site: Lip (Upper right inner lip fold) Side (if applicable): Right Local Anesthetic: Other Anesthetic (Topical Hurricaine spray) Technique: Needle Aspiration Amount of fluid expressed (mL): 2 Irrigation: No Packing used?: None Complications: Pain
[2020-06-14 09:06] VITALS: BP 125/79; PULSE 110; RESP 16; TEMP 36.7; O2SAT 99
[2020-06-14] MEDS: Clindamycin 300 MG CAP PO (09:40)
--- NOTE | 2020-06-16 09:23 | NUR.NOTE ---
Nursing Note: call from labs regrading Wound culture reported to Ara Ortiz
== END 2020-06-14 09:47 | disposition home or self-care (01) ==
PROVIDERS: Emergency Provider Registered Nurse Emergency; PCP Emergency Medicine
DX: K12.2 Cellulitis and abscess of mouth (principal); S01.20XA Unspecified open wound of nose, initial encounter; E11.9 Type 2 diabetes mellitus without complications; Z79.4 Long term (current) use of insulin
CPT/HCPCS: 10160; 87077; 87070; 87186; 87205

== ENCOUNTER 2021-01-12 14:47 | Outpatient (REF) | payer OTHER, SELFPAY ==
[2021-01-12 20:18] LABS: BUN 25 mg/dL (7-18); CREATININE 1.3 mg/dL (0.70-1.30); Calcium 9.4 mg/dL (8.5-10.1); Chloride 100 mmol/L (98-107); Estimated GFR 57.53 (mL/min/1.73m2); Glucose 319 mg/dL (74-106); Potassium 4.8 mmol/L (3.5-5.1); Sodium 138 mmol/L (136-145)
[2021-01-12 20:22] LABS: Hemoglobin A1C 8.6 % (<5.7)
[2021-01-12 21:03] LABS: COMMENT (LAB VIEW ONLY) 34.68 mg/dL; Microalb ug/mg Crea 4.9 ug/mg Cr
== END 2021-01-12 14:48 | disposition home or self-care (01) ==
LOC: LBN 14:47
PROVIDERS: PCP Emergency Medicine; Visit Provider Emergency Medicine
DX: I10 Essential (primary) hypertension (principal); E11.65 Type 2 diabetes mellitus with hyperglycemia; Z79.4 Long term (current) use of insulin
CPT/HCPCS: 80048; 82043; 82570; 83036

== ENCOUNTER 2021-02-20 23:11 | Emergency (ER) | payer OTHER, SELFPAY ==
[2021-02-20 23:16] VITALS: BP 118/85; PULSE 130; RESP 16; TEMP 36.4; O2SAT 99
--- NOTE | 2021-02-20 23:30 | DI.RAD_ITS ---
EXAM: XR FINGER RT RING CLINICAL HISTORY: redness and swelling. TECHNIQUE: 2D digital imaging was performed. COMPARISON: CR,XR XR FINGER RT MIDDLE from 03/22/2020 FINDINGS: There is some soft tissue swelling around the PIP joint but no fracture or dislocation. No abnormal soft tissue densities in the 4th-ring finger. No osseous lesions. No radiographic evidence of osteo myelitis IMPRESSION: No significant radiographic findings. DATA REPOSITORY: RADIATION DOSE DELIVERED:
--- NOTE | 2021-02-20 23:30 | ED.GENADUL_ITS ---
Discharge Plan Disposition Patient Disposition: HOME Condition: Stable Discharge Details Clinical Impression: Cellulitis of right ring finger Primary Care Provider: Maciej Szymanski ED Provider: Kyle Yi Bonneau Meds and New Rx's Prescriptions: New clindamycin HCl 150 mg capsule 450 mg PO TID 7 Days Qty: 63 RF: 0 amoxicillin-pot clavulanate [Augmentin] 875-125 mg tablet 1 tab PO BID Qty: 14 RF: 0 Continued insulin aspart U-100 [Novolog Flexpen U-100 Insulin] 100 unit/mL (3 mL) insulin pen 5 unit subcut AC RF: 0 loratadine 10 MG tablet 10 mg PO DAILY PRN RF: 0 TEST STRIPS 1 EACH strip 1 ea Miscellaneous BID Qty: 180 RF: 4 omeprazole magnesium [Prilosec OTC] 20 MG tablet,delayed release (DR/EC) 1 tab PO BID Qty: 180 RF: 4 (DME) BD Insulin Syringe 1 EACH syringe 1 ea Miscellaneous BID Qty: 200 RF: 3 ascorbic acid (vitamin C) [Vitamin C] 500 MG tablet 1 tab PO DAILY RF: 0 fluticasone propionate 16 GM spray,suspension 1 - 2 spr NS DAILY PRNQty: 1 RF: 1 glucosam-chond [id number] ac 1 EACH capsule 2 ea PO BID RF: 0 ENBREL SURECLICK 50 MG/1 ML PEN.INJCTR 50 mg SQ Weekly RF: 0 (DME) FreeStyle Lite Strips strip 1 ea Miscellaneous TID Qty: 180 RF: 4 (DME) pen needle, diabetic [BD Ultra-Fine Estefanía Pen Needle] 32 gauge x 5/32 needle 1 ea Miscellaneous BID Qty: 200 RF: 3 Jardiance 25 mg tablet 25 mg PO DAILY Qty: 90 RF: 3 (DME) pen needle, diabetic [Novofine 32] 32 gauge x 1/4 needle 1 ea Miscellaneous DAILY Qty: 90 RF: 3 (DME) pen needle, diabetic [ReliOn Pen [place]] 32 gauge x 5/32 needle See Rx Instructions .ROUTE .MEDSUPPLY Qty: 100 RF: 3 metformin 1,000 mg tablet 1,000 mg PO BID Qty: 180 RF: 4 meloxicam 15 mg tablet 15 mg PO DAILY Qty: 60 RF: 1 glipizide 5 mg Tablet 5 mg PO HS RF: 0 glipizide 5 mg tablet 10 mg PO DAILY RF: 0 Lantus Solostar U-100 Insulin 100 unit/mL (3 mL) insulin pen 13 unit IM/SC BID RF: 0 Discharge Instructions Instructions: Cellulitis (ED) Additional Instructions: IF your redness spreads down the hand, you have severe worsening pain or fevers return to the emergency department Medical Decision Making 55 yo male with history of diabetes comes in with right ring finger redness and swelling since yesterday and denies any known trauma and hasn't been using his hands for woodworking or other activities that could have caused a foreign body in the hand. He has diffuse swelling of the entire finger on his right ring finger and holds it passively in flexion. He is able to extend it but with pain. He has erythema from the PIP joint distal to this. Has intact sensation and normal capillary refill. No redness or swelling or the wrist or hand. Concern for possible flexor tenosynovitis, will obtain xray and labs and reevaluate. No palpable foreign body on exam and has no breaks in the skin to suggest this xray unremarkable on my read. Patient states after I informed him that I would likely want to admit him and possibly would need surgery as well declined and requested discharge. He has capacity to make his own decisions and is clinically sober without evidence of being under the influence of alcohol or drugs. He understands that PO antibiotics may not adequately treat this and is at risk for worsening infection which could cause amputation which could leave him permanently disabled and also possibility for . He understands these risks and still has no desire to be admitted or have surgery at this present time. He is leaving against my medical advise. He will be started on clindamycin and augmentin and strongly advised if he changes his mind or if he worsens he should return to the ED immediately Differential Diagnosis Differential Diagnosis: flexor tenosynovitis, cellulitis, abscess Imaging Data Radiologic Study: Attestation: I personally reviewed and interpreted this imaging study as follows: Imaging: X-Ray My impression: no acute findings HPI General Mode of arrival: ambulatory . Date/Time Provider Initiated Documentation: 02/20/21 23:12 . Limitations to Documentation: no limitations . Information obtained by: patient . History of Present Illness 55 year old M presents to the emergency department with the chief complaint of right ring finger redness/swelling, described as moderate, Patient started experiencing this day(s) (1) and it has been constant. Rest improves symptom(s), Movement worsens symptoms . Patient notes no other symptoms.. Patient did receive the following treatments prior to arrival, none Related Data Home Medications Medication Instructions Recorded Confirmed loratadine 10 mg PO DAILY PRN tab-cap 12/29/12 02/20/21 omeprazole magnesium [Prilosec OTC] 1 tab PO BID #180 tab-cap 10/19/14 02/20/21 BD Insulin Syringe #200 syringe 04/19/15 10/06/20 ascorbic acid (vitamin C) [Vitamin 1 tab PO DAILY 06/02/15 02/20/21 C] fluticasone propionate 1 - 2 spr NS DAILY PRN #1 bottle 10/15/15 02/20/21 glucosam-chond [id number] ac 2 ea PO BID 09/30/17 02/20/21 Enbrel Sureclick 50 mg SQ Weekly 12/09/17 02/20/21 blood sugar diagnostic #180 strip 04/23/19 10/06/20 pen needle, diabetic 32 gauge x #200 ndl 12/31/19 10/06/20 empagliflozin 25 mg tablet 25 mg PO DAILY #90 tab-cap 02/18/20 02/20/21 pen needle, diabetic 32 gauge x #90 unit 05/31/20 10/06/2010/30 pen needle, diabetic 32 gauge x #100 each 06/09/20 10/06/20 metformin 1,000 mg tablet 1,000 mg PO BID #180 tab-cap 07/26/20 02/20/21 insulin aspart U-100 100 unit/mL 5 unit SUBCUT AC ml 10/06/20 02/20/21 (3 mL) subcutaneous pen meloxicam 15 mg tablet 15 mg PO DAILY #60 tab-cap 01/11/21 02/20/21 Lantus Solostar U-100 Insulin 13 unit IM/SC BID 02/20/21 02/20/21 glipizide 5 mg PO HS 02/20/21 02/20/21 glipizide 10 mg PO DAILY 02/20/21 02/20/21 amoxicillin-pot clavulanate 1 tab PO BID #14 tab 02/21/21 [Augmentin] clindamycin HCl 450 mg PO TID 7 Days #63 cap 02/21/21 Previous Rx's Medication Instructions Recorded blood sugar diagnostic #180 strip 04/23/19 pen needle, diabetic 32 gauge x #200 ndl 12/31/19 empagliflozin 25 mg tablet 25 mg PO DAILY #90 tab-cap 02/18/20 pen needle, diabetic 32 gauge x #90 unit 05/31/2010/30 pen needle, diabetic 32 gauge x #100 each 06/09/20 metformin 1,000 mg tablet 1,000 mg PO BID #180 tab-cap 07/26/20 meloxicam 15 mg tablet 15 mg PO DAILY #60 tab-cap 01/11/21 amoxicillin-pot clavulanate 1 tab PO BID #14 tab 02/21/21 [Augmentin] clindamycin HCl 450 mg PO TID 7 Days #63 cap 02/21/21 Allergies Allergy/AdvReac Type Severity Reaction Status Date / Time Sulfa (Sulfonamide AdvReac Intermediate NAUSEA Verified 02/20/21 23:25 Antibiotics) DUST Allergy Intermediate NASAL Uncoded 02/20/21 23:25 CONGESTION General Stated Complaint: Cellulitis MARIA GUADALUPE: 3 Review of Systems All systems reviewed & are unremarkable except as noted in HPI and below Constitutional Constitutional: Denies chills, Denies fever(s) and Denies weakness Cardiovascular Cardiovascular: Denies chest pain and Denies dyspnea Respiratory Respiratory: Denies cough and Denies dyspnea Gastrointestinal Gastrointestinal: Denies abdominal pain, Denies nausea and Denies vomiting Integumentary/Breasts Skin/Breast: Denies rash Neurologic Neurologic: Denies weakness Psychiatric Psychiatric: Denies depression [facility] Medical History (Updated 02/21/21 @ 00:06 by Kyle Yi MD) Anemia (08/18/15) iron deficiency extensive GI workup. [place]en [place] [facility] [place] idiopathic but perhaps occult GI bleed Arthritis (10/02/12) PSORIATIC Huang esophagus Cataract O.D. Gastroesophageal reflux disease with esophagitis (08/09/15) Barretts esophagus Gout (08/26/12) History of tobacco use Idiopathic scoliosis Adorno Moreno placed at age 15; chest deformity; likely restrictive lung disease Insulin dependent type 2 diabetes mellitus, uncontrolled Male infertility Osteoporosis (08/18/15) Peptic reflux disease Psoriasis Psoriatic arthritis (10/02/12) Weight loss Surgical History EGD - MAC EGD/COLO (08/09/15) [facility]HA[facility] MATTHEWS Extraction of cataract (~2009) spinal canal structure surgery adorno moreno placed age 15 Family History Mother , age 62 Breast cancer Father , age 65 COPD (chronic obstructive pulmonary disease) Brother No problems noted. Maternal Grandfather Myocardial infarction Paternal Grandfather Myocardial infarction Maternal Grandmother No problems noted. Paternal Grandmother Myocardial infarction Brother No problems noted. Brother No problems noted. Brother No problems noted. Son Adopted Daughter Adopted Social History Smoking/Tobacco Use Status: Never Smoking risk assessment performed?: Yes Alcohol Intake: never Drug use: Never Substance use type: does not use Caregiver/Support person: No Household members: spouse Housing: apartment Communication Needs: None current occupation: [employer] Pets and animals: No Sexually active: Yes Do you think of yourself as: straight/heterosexual Current gender identity: female What is your relationship status?: How often do you talk on the phone with friends or family?: three or more times per week How often do you get together with friends or relatives?: three or more times per week How often do you attend methodist or catholic services?: decline to answer Do you belong to any clubs or organized social groups?: yes Panel score (0-1 are the most socially isolated patients): 3 What type of physical activity do you participate in: decline to answer Duration: decline to answer Frequency: decline to answer Sandrita/Methodist: None Special sandrita needs: No Seatbelt use: always Helmet use: No Drive intox or ride w/intox solo truck driver: No Do you feel safe at home: Yes Do you feel safe in your relationship?: Yes Exam Const General: no acute distress Orientation: alert HENMT Head: normal to inspection Ears: external ears normal General nose exam: external nose normal Mouth: moist mucous membranes Eyes General: appearance normal, both eyes and all related structures Neck Neck: normal visual inspection Resp Effort & Inspection: normal respiratory effort and able to speak in complete sentences Cardio Rate: regular rate Skin General skin exam: no rashes or lesions noted Neuro General: patient alert and patient oriented x3 Extrem General: capillary refill normal Psych Mental Status: mental status grossly normal Course Vital Signs Vital signs: Vital Signs Temperature 36.4 C L 02/20/21 23:16 Pulse 130 H 02/20/21 23:16 Respiratory Rate 16 02/20/21 23:16 Blood Pressure 118/85 02/20/21 23:16 Pulse Oximetry 99 02/20/21 23:16 Temperature 36.4 C L 02/20/21 23:16 Temperature Source Skin 02/20/21 23:16 Pulse 130 H 02/20/21 23:16 Respiratory Rate 16 02/20/21 23:16 Respiratory Effort Non-Labored 02/20/21 23:20 Blood Pressure 118/85 02/20/21 23:16 Blood Pressure Position Sitting 02/20/21 23:16 Pulse Oximetry 99 02/20/21 23:16 Oxygen Delivery Method Room Air 02/20/21 23:16 Oxygen Flow Rate 0 02/20/21 23:16 Pain Level 1 02/20/21 23:16
[2021-02-21] MEDS: Clindamycin 150 MG CAP 450 MG PO (00:12)
[2021-02-21] MEDS: Amoxicillin 875/Clav. 125 TAB PO (00:13)
[2021-02-21 00:14] VITALS: PULSE 116; RESP 14; O2SAT 98
--- NOTE | 2021-02-21 00:17 | DI.VRAD_ITS ---
PROCEDURE INFORMATION: Exam: XR Right Finger(s) Exam date and time: 02/20/2021 11:46 PM Age: 55 years old Clinical indication: Fingers and other: Redness and swelling RT ring finger; Right TECHNIQUE: Imaging protocol: XR Right fingers. Views: Minimum 2 views. COMPARISON: CR XR FINGER RT MIDDLE 03/22/2020 5:10 PM FINDINGS: Bones/joints: Bones and joints are intact. Soft tissues: Focal soft tissue swelling about the proximal interphalangeal joint. No radiopaque foreign body or soft tissue gas. IMPRESSION: No significant abnormality. Dictated and Authenticated by: Lexx Cabezas MD. Ordering:YAMEL Wright MD
== END 2021-02-21 00:15 | disposition home or self-care (01) ==
PROVIDERS: Emergency Provider Emergency Medicine; PCP Emergency Medicine
DX: L03.011 Cellulitis of right finger (principal); Z53.29 Procedure and treatment not carried out because of patient's decision for other reasons
CPT/HCPCS: 80053; 85652; 99283; 73140; 85025; 86140

== ENCOUNTER 2021-02-21 16:38 | Inpatient (IN) | payer OTHER, SELFPAY ==
[2021-02-21] VITALS (7 sets, daily range): BP systolic 120–142; BP diastolic 71–89; PULSE 84–131; RESP 15–20; TEMP 36.2–36.7; O2SAT 99
--- NOTE | 2021-02-21 16:44 | ED.GENADUL_ITS ---
Discharge Plan Disposition Patient Disposition: [facility] INPATIENT Condition: Serious Discharge Details Clinical Impression: Cellulitis of right ring finger Primary Care Provider: Maciej Szymanski ED Provider: Sandip Tenorio Home Meds and New Rx's Prescriptions: No Action insulin aspart U-100 [Novolog Flexpen U-100 Insulin] 100 unit/mL (3 mL) insulin pen 5 unit subcut AC RF: 0 loratadine 10 MG tablet 10 mg PO DAILY PRN RF: 0 TEST STRIPS 1 EACH strip 1 ea Miscellaneous BID Qty: 180 RF: 4 omeprazole magnesium [Prilosec OTC] 20 MG tablet,delayed release (DR/EC) 1 tab PO BID Qty: 180 RF: 4 (DME) BD Insulin Syringe 1 EACH syringe 1 ea Miscellaneous BID Qty: 200 RF: 3 ascorbic acid (vitamin C) [Vitamin C] 500 MG tablet 1 tab PO DAILY RF: 0 fluticasone propionate 16 GM spray,suspension 1 - 2 spr NS DAILY PRNQty: 1 RF: 1 glucosam-chond pl-tnqneh-pj ac 1 EACH capsule 2 ea PO BID RF: 0 ENBREL SURECLICK 50 MG/1 ML PEN.INJCTR 50 mg SQ Weekly RF: 0 (DME) FreeStyle Lite Strips strip 1 ea Miscellaneous TID Qty: 180 RF: 4 (DME) pen needle, diabetic [BD Ultra-Fine Estefanía Pen Needle] 32 gauge x 5/32 needle 1 ea Miscellaneous BID Qty: 200 RF: 3 Jardiance 25 mg tablet 25 mg PO DAILY Qty: 90 RF: 3 (DME) pen needle, diabetic [Novofine 32] 32 gauge x 1/4 needle 1 ea Miscellaneous DAILY Qty: 90 RF: 3 (DME) pen needle, diabetic [ReliOn Pen [place]] 32 gauge x 5/32 needle See Rx Instructions .ROUTE .MEDSUPPLY Qty: 100 RF: 3 metformin 1,000 mg tablet 1,000 mg PO BID Qty: 180 RF: 4 meloxicam 15 mg tablet 15 mg PO DAILY Qty: 60 RF: 1 glipizide 5 mg Tablet 5 mg PO HS RF: 0 glipizide 5 mg tablet 10 mg PO DAILY RF: 0 Lantus Solostar U-100 Insulin 100 unit/mL (3 mL) insulin pen 13 unit IM/SC BID RF: 0 clindamycin HCl 150 mg capsule 450 mg PO TID 7 Days Qty: 63 RF: 0 amoxicillin-pot clavulanate [Augmentin] 875-125 mg tablet 1 tab PO BID Qty: 14 RF: 0 Medical Decision Making 55-year-old gentleman presenting for the second time with right for finger pain, swelling, redness. Overnight had an x-ray, declined blood work and left AMA. Discharged with clindamycin and Augmentin. Reports pain is worse now. He presents with tachycardia, and a finger is diffusely swollen, erythematous, tender. He is able to fully extend and flex at the MCP and PIP joints. No signs of felon or paronychia. Certainly concern for cellulitis, flexor tenosynovitis, psoriatic arthritis flare, etc. Will obtain routine laboratory values and reassess. X-ray was obtained overnight Laboratory values reveal a white blood cell count of 16.35, lactate 1.1, creatinine 1.4 with a GFR of 52.81, glucose 124, CRP 5.39, ESR 22. I initiated a vancomycin loading dose and 1 g IV ceftriaxone. Case discussed with Dr. Carmona, please see his note. Was comfortable with the IV antibiotic choices, recommended adding on Toradol, keeping the patient n.p.o. overnight and he will evaluate the patient in the hospital tomorrow morning but at this time does recommend a hospitalist admission for his other comorbidities. Case and discussed with Dr. Lopez, she is agreeable to admission but requests a EKG given his initial tachycardia. Recent vital signs reveal a blood pressure of 120/71 and a pulse of 96 EKG performed at 1919, please see official report by Dr. Brown. Sinus tachycardia, ventricular of 100. Early repolarization pattern. No STEMI Discussed EKG with Dr. Lopez. She is agreeable to admission and will place admission orders Medical Records Medical records reviewed: Yes I reviewed the patient's medical records. Lab Data Lab results reviewed: Yes I reviewed the patient's lab results. Labs: 02/21/21 17:29 Blood Blood Culture - Pending 02/21/21 17:09 Blood Blood Culture - Pending Laboratory Tests Range/Units 02/21/21 02/21/21 02/21/21 16:58 17:09 17:09 WBC (4.4-10.8) 10^3/uL 16.35 H RBC (4.36-5.78) 10^6/uL 5.05 Hgb (13.5-17.5) g/dL 13.8 Hct (40.0-50.0) % 42.2 MCV (80-95) fL 83.6 MCH (27.0-33.0) pg 27.3 MCHC (32.0-36.0) % 32.7 RDW (11.8-14.1) % 13.3 Plt Count (130-400) 10^3/uL 342 MPV (8.0-11.0) fL 9.1 Immature Gran % 0.3 Neutrophils % 80.6 Lymphocytes % 10.0 Monocytes % 8.6 Eosinophils % 0.2 Basophils % 0.3 Nucleated RBC % % 0 Absolute Neutrophils (1.2-6.7) 10^3/uL 13.18 H Absolute Lymphocytes (1.2-3.4) 10^3/uL 1.64 Absolute Monocytes (0.1-0.8) 10^3/uL 1.41 H Absolute Eosinophils (0.0-0.7) 10^3/uL 0.03 Absolute Basophils (0.0-0.2) 10^3/uL 0.05 ESR (0-20) mm//hr VBG Lactate (0.6-1.4) mmol/L 1.1 Sodium (136-145) mmol/L 139 Potassium (3.5-5.1) mmol/L 4.3 Chloride (98-107) mmol/L 102 Carbon Dioxide (21.0-32.0) mmol/L 24.9 Anion Gap (3-11) mmol/L 12.1 H BUN (7-18) mg/dL 25 H Creatinine (0.70-1.30) mg/dL 1.4 H Estimated GFR/1.73 m2 (mL/min/1.73m2) 52.81 Glucose (74-106) mg/dL 124 H Calcium (8.5-10.1) mg/dL 9.5 Total Bilirubin (0.2-1.0) mg/dL 0.5 AST (15-37) U/L 20 ALT (16-63) U/L 35 Alkaline Phosphatase (46-116) U/L 117 H C-Reactive Protein (0.0-0.3) mg/dL C-React Prot High Sens Total Protein (6.4-8.2) g/dL 8.3 H Albumin (3.4-5.0) g/dL 4.4 COVID-19 Source Range/Units 02/21/21 02/21/21 02/21/21 17:09 17:09 17:54 WBC (4.4-10.8) 10^3/uL RBC (4.36-5.78) 10^6/uL Hgb (13.5-17.5) g/dL Hct (40.0-50.0) % MCV (80-95) fL MCH (27.0-33.0) pg MCHC (32.0-36.0) % RDW (11.8-14.1) % Plt Count (130-400) 10^3/uL MPV (8.0-11.0) fL Immature Gran % Neutrophils % Lymphocytes % Monocytes % Eosinophils % Basophils % Nucleated RBC % % Absolute Neutrophils (1.2-6.7) 10^3/uL Absolute Lymphocytes (1.2-3.4) 10^3/uL Absolute Monocytes (0.1-0.8) 10^3/uL Absolute Eosinophils (0.0-0.7) 10^3/uL Absolute Basophils (0.0-0.2) 10^3/uL ESR (0-20) mm//hr 22 H VBG Lactate (0.6-1.4) mmol/L Sodium (136-145) mmol/L Potassium (3.5-5.1) mmol/L Chloride (98-107) mmol/L Carbon Dioxide (21.0-32.0) mmol/L Anion Gap (3-11) mmol/L BUN (7-18) mg/dL Creatinine (0.70-1.30) mg/dL Estimated GFR/1.73 m2 (mL/min/1.73m2) Glucose (74-106) mg/dL Calcium (8.5-10.1) mg/dL Total Bilirubin (0.2-1.0) mg/dL AST (15-37) U/L ALT (16-63) U/L Alkaline Phosphatase (46-116) U/L C-Reactive Protein (0.0-0.3) mg/dL 5.39 H C-React Prot High Sens Cancelled Total Protein (6.4-8.2) g/dL Albumin (3.4-5.0) g/dL COVID-19 Source Range/Units 02/21/21 18:58 WBC (4.4-10.8) 10^3/uL RBC (4.36-5.78) 10^6/uL Hgb (13.5-17.5) g/dL Hct (40.0-50.0) % MCV (80-95) fL MCH (27.0-33.0) pg MCHC (32.0-36.0) % RDW (11.8-14.1) % Plt Count (130-400) 10^3/uL MPV (8.0-11.0) fL Immature Gran % Neutrophils % Lymphocytes % Monocytes % Eosinophils % Basophils % Nucleated RBC % % Absolute Neutrophils (1.2-6.7) 10^3/uL Absolute Lymphocytes (1.2-3.4) 10^3/uL Absolute Monocytes (0.1-0.8) 10^3/uL Absolute Eosinophils (0.0-0.7) 10^3/uL Absolute Basophils (0.0-0.2) 10^3/uL ESR (0-20) mm//hr VBG Lactate (0.6-1.4) mmol/L Sodium (136-145) mmol/L Potassium (3.5-5.1) mmol/L Chloride (98-107) mmol/L Carbon Dioxide (21.0-32.0) mmol/L Anion Gap (3-11) mmol/L BUN (7-18) mg/dL Creatinine (0.70-1.30) mg/dL Estimated GFR/1.73 m2 (mL/min/1.73m2) Glucose (74-106) mg/dL Calcium (8.5-10.1) mg/dL Total Bilirubin (0.2-1.0) mg/dL AST (15-37) U/L ALT (16-63) U/L Alkaline Phosphatase (46-116) U/L C-Reactive Protein (0.0-0.3) mg/dL C-React Prot High Sens Total Protein (6.4-8.2) g/dL Albumin (3.4-5.0) g/dL COVID-19 Source Nasal/nares ECG Data Attestation: I personally reviewed and interpreted this ECG (s) as follows: Interpretation: Sinus tachycardia, ventricular of 100. Early repolarization pattern HPI General Mode of arrival: ambulatory . Date/Time Provider Initiated Documentation: 02/21/21 16:41 . Limitations to Documentation: no limitations . Information obtained by: patient . HPI Narrative: This is a 55-year-old gentleman, insulin-dependent diabetic, psoriatic arthritis, does take Enbrel weekly. Patient was seen in the ER late last night for the same. He reports atraumatic right ring finger pain, swelling, redness that began over the past 24 hours. X-ray last night was unremarkable, admission was recommended but declined. Patient subsequently discharged on oral Augmentin and clindamycin. Patient does report that he is ambidextrous but does write primarily with his right. He reports that his tetanus status is up-to-date. Patient states that his symptoms have worsened since last night. Pain was moderate, took [id number] Tylenol, pain now mild. Denies rash elsewhere in his body or other joint pain. Denies fever. Patient was able to talk with his work today and he is now agreeable to admission. Related Data Home Medications Medication Instructions Recorded Confirmed loratadine 10 mg PO DAILY PRN tab-cap 12/29/12 02/21/21 omeprazole magnesium [Prilosec OTC] 1 tab PO BID #180 tab-cap 10/19/14 02/21/21 BD Insulin Syringe #200 syringe 04/19/15 10/06/20 ascorbic acid (vitamin C) [Vitamin 1 tab PO DAILY 06/02/15 02/21/21 C] fluticasone propionate 1 - 2 spr NS DAILY PRN #1 bottle 10/15/15 02/21/21 glucosam-chond [id number] ac 2 ea PO BID 09/30/17 02/21/21 Enbrel Sureclick 50 mg SQ Weekly 12/09/17 02/20/21 blood sugar diagnostic #180 strip 04/23/19 10/06/20 pen needle, diabetic 32 gauge x #200 ndl 12/31/19 10/06/20 empagliflozin 25 mg tablet 25 mg PO DAILY #90 tab-cap 02/18/20 02/21/21 pen needle, diabetic 32 gauge x #90 unit 05/31/20 10/06/2010/30 pen needle, diabetic 32 gauge x #100 each 06/09/20 10/06/20 metformin 1,000 mg tablet 1,000 mg PO BID #180 tab-cap 07/26/20 02/21/21 insulin aspart U-100 100 unit/mL 5 unit SUBCUT AC ml 10/06/20 02/21/21 (3 mL) subcutaneous pen meloxicam 15 mg tablet 15 mg PO DAILY #60 tab-cap 01/11/21 02/21/21 Lantus Solostar U-100 Insulin 13 unit IM/SC BID 02/20/21 02/21/21 glipizide 5 mg PO HS 02/20/21 02/21/21 glipizide 10 mg PO DAILY 02/20/21 02/21/21 amoxicillin-pot clavulanate 1 tab PO BID #14 tab 02/21/21 02/21/21 [Augmentin] clindamycin HCl 450 mg PO TID 7 Days #63 cap 02/21/21 02/21/21 Previous Rx's Medication Instructions Recorded blood sugar diagnostic #180 strip 04/23/19 pen needle, diabetic 32 gauge x #200 ndl 12/31/19 empagliflozin 25 mg tablet 25 mg PO DAILY #90 tab-cap 02/18/20 pen needle, diabetic 32 gauge x #90 unit 05/31/2010/30 pen needle, diabetic 32 gauge x #100 each 06/09/20 metformin 1,000 mg tablet 1,000 mg PO BID #180 tab-cap 07/26/20 meloxicam 15 mg tablet 15 mg PO DAILY #60 tab-cap 01/11/21 amoxicillin-pot clavulanate 1 tab PO BID #14 tab 02/21/21 [Augmentin] clindamycin HCl 450 mg PO TID 7 Days #63 cap 02/21/21 Allergies Allergy/AdvReac Type Severity Reaction Status Date / Time Sulfa (Sulfonamide AdvReac Intermediate NAUSEA Verified 02/21/21 16:43 Antibiotics) DUST Allergy Intermediate NASAL Uncoded 02/21/21 16:43 CONGESTION General Stated Complaint: Cellulitis MARIA GUADALUPE: 3 Review of Systems Constitutional Constitutional: Denies fatigue, Denies fever(s) and Denies weakness ENT Ears, Nose, Mouth, and Throat: Denies neck pain Cardiovascular Cardiovascular: Denies chest pain and Denies dyspnea Respiratory Respiratory: Denies cough and Denies dyspnea Gastrointestinal Gastrointestinal: Denies abdominal pain, Denies nausea and Denies vomiting Musculoskeletal Musculoskeletal: Denies back pain, Reports arthralgias, Reports joint swelling, Denies neck pain, Denies numbness, Reports stiffness and Denies tingling Integumentary/Breasts Skin/Breast: Reports erythema Neurologic Neurologic: Denies numbness, Denies tingling and Denies weakness Endocrine Endocrine: Denies fatigue Hematologic/Lymphatic Hematologic/Lymphatic: Denies easy bleeding and Denies easy bruising [facility] Medical History Anemia (08/18/15) iron deficiency extensive GI workup. Seen Heme at [facility]. idiopathic but perhaps occult GI bleed Arthritis (10/02/12) PSORIATIC Huang esophagus Cataract O.D. Gastroesophageal reflux disease with esophagitis (08/09/15) Barretts esophagus Gout (08/26/12) History of tobacco use Idiopathic scoliosis Adorno Moreno placed at age 15; chest deformity; likely restrictive lung disease Insulin dependent type 2 diabetes mellitus, uncontrolled Male infertility Osteoporosis (08/18/15) Peptic reflux disease Psoriasis Psoriatic arthritis (10/02/12) Weight loss Surgical History EGD - MAC EGD/COLO (08/09/15) MICHAEL MATTHEWS Extraction of cataract (~2009) spinal canal structure surgery adorno moreno placed age 15 Family History Mother , age 62 Breast cancer Father , age 65 COPD (chronic obstructive pulmonary disease) Brother No problems noted. Maternal Grandfather Myocardial infarction Paternal Grandfather Myocardial infarction Maternal Grandmother No problems noted. Paternal Grandmother Myocardial infarction Brother No problems noted. Brother No problems noted. Brother No problems noted. Son Adopted Daughter Adopted Social History Smoking/Tobacco Use Status: Former Tobacco Use Smoking risk assessment performed?: Yes Alcohol Intake: former Drug use: Never Substance use type: does not use Caregiver/Support person: No Household members: spouse Housing: apartment Communication Needs: None current occupation: [employer] Pets and animals: No Sexually active: Yes Do you think of yourself as: straight/heterosexual Current gender identity: female What is your relationship status?: How often do you talk on the phone with friends or family?: three or more times per week How often do you get together with friends or relatives?: three or more times per week How often do you attend hoahaoism or judaism services?: decline to answer Do you belong to any clubs or organized social groups?: yes Panel score (0-1 are the most socially isolated patients): 3 What type of physical activity do you participate in: decline to answer Duration: decline to answer Frequency: decline to answer Sandrita/Jainism: None Special sandrita needs: No Seatbelt use: always Helmet use: No Drive intox or ride w/intox 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 Do you feel safe at home: Yes Do you feel safe in your relationship?: Yes Exam Const General: cooperative, healthy appearing, comfortable and no acute distress Orientation: alert, awake and oriented x3 HENMT Head: normal to inspection, normocephalic and atraumatic Mouth: moist mucous membranes Eyes General: appearance normal, both eyes and all related structures Conjunctivae: conjunctivae normal Neck Neck: normal visual inspection, full ROM, trachea midline and supple Resp Effort & Inspection: normal respiratory effort and able to speak in complete sentences Auscultation: clear to auscultation bilaterally Cardio Rate: tachycardic (120's) Rhythm: regular rhythm GI Palpation: soft and nontender Back/Spine/Pelvis Back: No back tenderness Skin Lesions: no lesions Neuro General: patient alert, patient awake, moves all extremities and no focal motor deficits Cognition: normal cognition Speech: speech normal Gait: normal gait Motor: muscle tone normal throughout Sensory Exam: no sensory deficits noted Extrem General: capillary refill normal Right upper extremity: normal capillary refill Left upper extremity: normal to inspection, full ROM and normal capillary refill Right lower extremity: normal to inspection, full ROM and normal capillary refill Left lower extremity: normal to inspection, full ROM and normal capillary refill Other: Right hand fourth finger with diffuse moderate swelling, erythema that is circumferential. Appears to be worse along the flexor aspect and distal aspect. There is diffuse discomfort but again worse over the distal aspect. No obvious felon, paronychia, pointing abscess, etc. No lymphangitic streaking. Patient is able to fully extend. Able to flex at the MCP and PIP joint; however, cannot flex at the DIP. Increased discomfort with both passive and active range of motion of the finger, worse with flexion when compared to extension. All of his fingernails appear to be brittle, chewed very short. Normal radial pulse and capillary refill Psych Appearance: grossly normal Mental Status: mental status grossly normal Course Vital Signs Vital signs: Vital Signs Temperature 36.7 C 02/21/21 16:41 Pulse 131 H 02/21/21 16:41 Respiratory Rate 18 02/21/21 16:41 Blood Pressure 142/89 H 02/21/21 16:41 Pulse Oximetry 99 02/21/21 16:41 Temperature 36.7 C 02/21/21 16:41 Temperature Source Skin 02/21/21 16:41 Pulse 131 H 02/21/21 16:41 Respiratory Rate 18 02/21/21 16:41 Respiratory Effort Non-Labored 02/21/21 16:43 Blood Pressure 142/89 H 02/21/21 16:41 Blood Pressure Position Sitting 02/21/21 16:41 Pulse Oximetry 99 02/21/21 16:41 Oxygen Delivery Method Room Air 02/21/21 16:41 Oxygen Flow Rate 0 02/21/21 16:41 Pain Level 0 02/21/21 16:41
[2021-02-21 17:17] LABS: Lactate 1.1 mmol/L (0.6-1.4)
[2021-02-21 17:24] LABS: Abs Immature Grans 0.05 10^3/uL (0.0-0.06); Absolute Basophil Count 0.05 10^3/uL (0.0-0.2); Absolute Lymphocyte Count 1.64 10^3/uL (1.2-3.4); Basophils % 0.3; Eosinophils % 0.2; HCT 42.2 % (40.0-50.0); HGB 13.8 g/dL (13.5-17.5); Immature Grans % 0.3; MCH 27.3 pg (27.0-33.0); MCHC 32.7 % (32.0-36.0); MCV 83.6 fL (80-95); MPV 9.1 fL (8.0-11.0); Monocytes % 8.6; Neutrophils % 80.6; Nucleated RBC 0 %; Platelet Count 342 10^3/uL (130-400); RBC 5.05 10^6/uL (4.36-5.78); RDW 13.3 % (11.8-14.1); RDW-SD 41.1 fL; WBC 16.35 10^3/uL (4.4-10.8)
[2021-02-21 17:32] LABS: Absolute Eosinophil Count 0.03 10^3/uL (0.0-0.7); Absolute Monocyte Count 1.41 10^3/uL (0.1-0.8); Absolute Neutrophil Count 13.18 10^3/uL (1.2-6.7)
[2021-02-21 17:33] LABS: ALT 35 U/L (16-63); AST 20 U/L (15-37); Albumin 4.4 g/dL (3.4-5.0); Alkaline Phosphatase 117 U/L (46-116); Anion Gap 12.1 mmol/L (3-11); BUN 25 mg/dL (7-18); Bilirubin, Total 0.5 mg/dL (0.2-1.0); CO2 24.9 mmol/L (21.0-32.0); CREATININE 1.4 mg/dL (0.70-1.30); Calcium 9.5 mg/dL (8.5-10.1); Chloride 102 mmol/L (98-107); Estimated GFR 52.81 (mL/min/1.73m2); Glucose 124 mg/dL (74-106); Potassium 4.3 mmol/L (3.5-5.1); Sodium 139 mmol/L (136-145); Total Protein 8.3 g/dL (6.4-8.2)
[2021-02-21] MEDS: cefTRIAXone 1 GM/50 ML BAG IVPB ×2 (18:00→21:13)
[2021-02-21 18:21] LABS: C-Reactive Protein 5.39 mg/dL (0.0-0.3)
[2021-02-21] MEDS: VANCOMYCIN/WATER (PEG) 1.25 GM/250 ML BAG IVPB (18:26)
[2021-02-21 18:30] LABS: ESR 22 mm//hr (0-20)
--- NOTE | 2021-02-21 19:00 | RT.EKG_ITS ---
APPROVED REPORT Exam: Resting ECG Patient Location: E HR:100 bpm ECG Measurements Heart Rate 100 AXIS GA 194 P 38 QRSd 99 QRS 63 QT 323 T 30 QTc 417 Conclusion Sinus tachycardia...rate> 99 Probable left atrial enlargement...P >50mS, <-0.10mV V1 ST elev, probable normal early repol pattern...ST elevation, age<55 I have reviewed and interpreted ECG and agree with software generated interpretation.
[2021-02-21 19:02] LABS: Source Nasal/Nares
--- NOTE | 2021-02-21 19:02 | W.ORTHOCONSU ---
Date of service: 02/22/21 Time of Service: 07:00 History of Present Illness History of Present Illness Chief Complaint: Right ring finger pain Narrative: About 2 days worsening Right ring finger pain. Associated with swelling. Second visit to ED in 24 hours. Does have history of finger and nail biting related infections. Does not recall any trauma relating to this 1 or foreign body. No history of psoriatic arthritis sausage digit. Localizes to the right ring finger. No pain radiating proximally to the hand or along the flexor or extensor tendons. Feels mildly improved compared to last night. Completely comfortable at rest. Consult Reason Right ring finger infection Assessment and Plan Assessment and plan (1) Cellulitis of right ring finger: Status: Acute Assessment and plan: 55 year old male with right ring finger infection Continue broad-spectrum IV antibiotics. Medical optimization of diabetic glycemic control. Strict elevation, NSAIDs for swelling and discomfort. And OT/hand therapy for early range of motion to prevent stiffness. Appearance consistent with localized infection about the ulnar margin of the distal right ring finger with surrounding cellulitis. Discussed with the patient at length. Decision to proceed with surgery later today 02/22/2021 right ring finger irrigation and debridement. Will obtain an appropriate wound cultures. The risks, benefits, and alternatives were thoroughly discussed with the patient this morning. Patient was counseled regarding pain management, expected postoperative course, and recovery timeline. All questions were answered. Informed consent was obtained. Possible discharge after 24 hours on oral antibiotics postoperative assuming appropriate response to infection decompression and debridement although may have to delay for wound cultures to specify target organism(s). Discussed with ED physician and primary medical team. Will follow along and update after surgery. Review of Systems Constitutional Constitutional: Denies chills, Denies fever(s) and Denies night sweats Cardiovascular Cardiovascular: Denies chest pain and Denies dyspnea Respiratory Respiratory: Denies cough, Denies dyspnea and Denies wheezing Allergic/Immunologic Allergic/Immunologic: Denies wheezing [facility] Medical History Anemia (08/18/15) iron deficiency extensive GI workup. Seen Heme at [facility]. idiopathic but perhaps occult GI bleed Arthritis (10/02/12) PSORIATIC Huang esophagus Cataract O.D. Gastroesophageal reflux disease with esophagitis (08/09/15) Barretts esophagus Gout (08/26/12) History of tobacco use Idiopathic scoliosis Adorno Moreno placed at age 15; chest deformity; likely restrictive lung disease Insulin dependent type 2 diabetes mellitus, uncontrolled Male infertility Osteoporosis (08/18/15) Peptic reflux disease Psoriasis Psoriatic arthritis (10/02/12) Weight loss Surgical History EGD - MAC EGD/COLO (08/09/15) MICHAEL MATTHEWS Extraction of cataract (~2009) spinal canal structure surgery adorno moreno placed age 15 Family History Mother , age 62 Breast cancer Father , age 65 COPD (chronic obstructive pulmonary disease) Brother No problems noted. Maternal Grandfather Myocardial infarction Paternal Grandfather Myocardial infarction Maternal Grandmother No problems noted. Paternal Grandmother Myocardial infarction Brother No problems noted. Brother No problems noted. Brother No problems noted. Son Adopted Daughter Adopted Social History Smoking/Tobacco Use Status: Former Tobacco Use Smoking risk assessment performed?: Yes Alcohol Intake: former Drug use: Never Substance use type: does not use Caregiver/Support person: No Household members: spouse Housing: apartment Communication Needs: None current occupation: [employer] Pets and animals: No Sexually active: Yes Do you think of yourself as: straight/heterosexual Current gender identity: female What is your relationship status?: How often do you talk on the phone with friends or family?: three or more times per week How often do you get together with friends or relatives?: three or more times per week How often do you attend moravian or restorationist services?: decline to answer Do you belong to any clubs or organized social groups?: yes Panel score (0-1 are the most socially isolated patients): 3 What type of physical activity do you participate in: decline to answer Duration: decline to answer Frequency: decline to answer Sandrita/Caodaism: None Special sandrita needs: No Seatbelt use: always Helmet use: No Drive intox or ride w/intox local owner operator truck 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 Resting comfortably in hospital bed with right hand elevated on pillows. Breathing comfortably on room air. 2+ right radial pulse. Regular rate and rhythm. Isolated right ring finger moderate generalized edema and localized erythema on the ulnar aspect of the ring finger. No proximal streaking. No tenderness over the flexor or extensor tendons. Able to demonstrate strong full extension without difficulty. Demonstrates moderate flexion limited by DIPJ swelling about 50% full. Near?full at the PIPJ and full at the MCP J. Localized significant most tenderness over the ulnar aspect just distal to the DIPJ where there appears to be purulence. Localized sensitive induration. Sensation intact throughout without paresthesias. Results Last Vital Signs Temp 98.1 F 02/21/21 16:41 Pulse 131 H 02/21/21 16:41 Resp 18 02/21/21 16:41 BP 142/89 H 02/21/21 16:41 Pulse Ox 99 02/21/21 16:41 Labs Result diagrams: 02/22/21 06:20 02/22/21 06:20 Labs: Laboratory Results - last 24 hr 02/21/21 02/21/21 02/21/21 16:58 17:09 17:09 WBC 16.35 H RBC 5.05 Hgb 13.8 Hct 42.2 MCV 83.6 MCH 27.3 MCHC 32.7 RDW 13.3 Plt Count 342 MPV 9.1 Immature Gran % 0.3 Neutrophils % 80.6 Lymphocytes % 10.0 Monocytes % 8.6 Eosinophils % 0.2 Basophils % 0.3 Nucleated RBC % 0 Absolute Neutrophils 13.18 H Absolute Lymphocytes 1.64 Absolute Monocytes 1.41 H Absolute Eosinophils 0.03 Absolute Basophils 0.05 ESR VBG Lactate 1.1 Sodium 139 Potassium 4.3 Chloride 102 Carbon Dioxide 24.9 Anion Gap 12.1 H BUN 25 H Creatinine 1.4 H Estimated GFR/1.73 m2 52.81 Glucose 124 H Calcium 9.5 Total Bilirubin 0.5 AST 20 ALT 35 Alkaline Phosphatase 117 H C-Reactive Protein C-React Prot High Sens Total Protein 8.3 H Albumin 4.4 02/21/21 02/21/21 02/21/21 17:09 17:09 17:54 WBC RBC Hgb Hct MCV MCH MCHC RDW Plt Count MPV Immature Gran % Neutrophils % Lymphocytes % Monocytes % Eosinophils % Basophils % Nucleated RBC % Absolute Neutrophils Absolute Lymphocytes Absolute Monocytes Absolute Eosinophils Absolute Basophils ESR 22 H VBG Lactate Sodium Potassium Chloride Carbon Dioxide Anion Gap BUN Creatinine Estimated GFR/1.73 m2 Glucose Calcium Total Bilirubin AST ALT Alkaline Phosphatase C-Reactive Protein 5.39 H C-React Prot High Sens Cancelled Total Protein Albumin Imaging Imaging Studies: Right hand x-rays report and images reviewed showing isolated soft tissue swelling about the PIPJ without any erosive or bony changes
[2021-02-21] MEDS: Ketorolac 30 MG/ML VIAL IVP (19:27)
--- NOTE | 2021-02-21 20:04 | HPE_ITS ---
Date of service: 02/21/21 Time of Service: 20:04 Assessment and Plan Assessment and plan (1) Sepsis: Status: Acute Assessment and plan: Due to cellulitis and possible abscess of 4th digit RUE. I do not think that the patient's finger looks this way just because of psoriatic arthritis given his WBC and tachycardia. I do strongly suspect infection. Continue vancomycin/ceftriaxone initiated in the ED. Await blood cultures and ortho consult. Trend WBC, CRP - WBC is already better today. The patient is immunocompramised on embrel. (2) Cellulitis of right ring finger: Status: Acute Assessment and plan: As above (3) Insulin dependent type 2 diabetes mellitus, uncontrolled: Status: Chronic Assessment and plan: Hypoglycemic this am - NPO. Add D5 to MIVF. Monitor BGs. Hold long acting insulin. Care management/DM educator to address issues with insurance covering CGM. (4) Gastroesophageal reflux disease with esophagitis: Status: Chronic Assessment and plan: Continue PPI (5) DVT prophylaxis: Status: Acute Assessment and plan: TEDs/SCDs. Hold chemical DVT ppx in anticipation of surgeyr (6) Need for discharge planning: Status: Acute Assessment and plan: Full code. CGM issue to be discussed History of Present Illness History of Present Illness Chief Complaint: Right ring finger redness, swelling, and pain Narrative: Mr Helms is a 55 year old male with PMHx of psoriasis and psoriatic arthritis, on embrel, as well as IDDM2, GERD, and petic ulcer disease, who presented to [facility] ED on 02/21/21 after a visit there on 02/20/21 with worsening redness/swelling of his right ring finger despite being initiated on augmentin and clindamycin on the first visit. The patient states that the symptoms started 3-4 days ago and after, not before, his last dose of embrel either Friday or Friday last week. He denies fevers/chills or trauma to the finger. He did notice a whitish spot on the lateral surface of the finger which has not yet drained anything, but he is wondering if he has a splinter in there. He denies animal bites. The patient was tachycardic and had a leucocytosis of 16.35. He was initiated on empiric vancomycin and ceftriaxone. Orthopedic consultation and hospitalist admission were requested. Of note, the patient did have a hypoglycemic episode this am - BG of 67. This was treated with 1/2 of an amp of D50 and switch to D5 containing fluids. He was asymptomatic. He did not receive long acting insulin last night.He has a trial of CGM on him, but states his insurance does not cover CGMs and he would like to talk to care management about this. Review of Systems All systems reviewed & are unremarkable except as noted in HPI and below PFSH Medical History Anemia (08/18/15) iron deficiency extensive GI workup. Seen Heme at [facility] [place]. idiopathic but perhaps occult GI bleed Arthritis (10/02/12) PSORIATIC Huang esophagus Cataract O.D. Gastroesophageal reflux disease with esophagitis (08/09/15) Barretts esophagus Gout (08/26/12) History of tobacco use Idiopathic scoliosis Adorno Moreno placed at age 15; chest deformity; likely restrictive lung disease Insulin dependent type 2 diabetes mellitus, uncontrolled Male infertility Osteoporosis (08/18/15) Peptic reflux disease Psoriasis Psoriatic arthritis (10/02/12) Weight loss Surgical History EGD - MAC EGD/COLO (08/09/15) MICHAEL MATTHEWS Extraction of cataract (~2009) spinal canal structure surgery adorno moreno placed age 15 Family History Mother , age 62 Breast cancer Father , age 65 COPD (chronic obstructive pulmonary disease) Brother No problems noted. Maternal Grandfather Myocardial infarction Paternal Grandfather Myocardial infarction Maternal Grandmother No problems noted. Paternal Grandmother Myocardial infarction Brother No problems noted. Brother No problems noted. Brother No problems noted. 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 Pets and animals: No Sexually active: Yes Do you think of yourself as: straight/heterosexual Current gender identity: female What is your relationship status?: How often do you talk on the phone with friends or family?: three or more times per week How often do you get together with friends or relatives?: three or more times per week How often do you attend sikh or episcopalian services?: decline to answer Do you belong to any clubs or organized social groups?: yes Panel score (0-1 are the most socially isolated patients): 3 What type of physical activity do you participate in: decline to answer Duration: decline to answer Frequency: decline to answer Sandrita/Hoahaoism: None Special sandrita needs: No Seatbelt use: always Helmet use: No Drive intox or ride w/intox 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 Do you feel safe at home: Yes Do you feel safe in your relationship?: Yes Meds Allergies and Home Medications Allergies Allergy/AdvReac Type Severity Reaction Status Date / Time Sulfa (Sulfonamide AdvReac Intermediate NAUSEA Verified 02/21/21 16:43 Antibiotics) DUST Allergy Intermediate NASAL Uncoded 02/21/21 16:43 CONGESTION Home Medications Medication Instructions Recorded Confirmed Type loratadine 10 mg PO DAILY PRN tab-cap 12/29/12 02/21/21 History Test Strips 1 ea MISCELLANEOUS BID #180 strip 09/02/14 01/13/19 Clinic omeprazole magnesium [Prilosec OTC] 1 tab PO BID #180 tab-cap 10/19/14 02/21/21 History BD Insulin Syringe #200 syringe 04/19/15 10/06/20 History ascorbic acid (vitamin C) [Vitamin 1 tab PO DAILY 06/02/15 02/21/21 History C] fluticasone propionate 1 - 2 spr NS DAILY PRN #1 bottle 10/15/15 02/21/21 History glucosam-chond og-obuxzl-ve ac 2 ea PO BID 09/30/17 02/21/21 History Enbrel Sureclick 50 mg SQ Weekly 12/09/17 02/20/21 History blood sugar diagnostic #180 strip 04/23/19 10/06/20 Rx pen needle, diabetic 32 gauge x #200 ndl 12/31/19 10/06/20 Rx 5/32 empagliflozin 25 mg tablet 25 mg PO DAILY #90 tab-cap 02/18/20 02/21/21 Rx pen needle, diabetic 32 gauge x #90 unit 05/31/20 10/06/20 Rx 1/4 pen needle, diabetic 32 gauge x #100 each 06/09/20 10/06/20 Rx metformin 1,000 mg tablet 1,000 mg PO BID #180 tab-cap 07/26/20 02/21/21 Rx insulin aspart U-100 100 unit/mL 5 unit SUBCUT AC ml 10/06/20 02/21/21 History (3 mL) subcutaneous pen meloxicam 15 mg tablet 15 mg PO DAILY #60 tab-cap 01/11/21 02/21/21 Rx Lantus Solostar U-100 Insulin 13 unit IM/SC BID 02/20/21 02/21/21 History glipizide 5 mg PO HS 02/20/21 02/21/21 History glipizide 10 mg PO DAILY 02/20/21 02/21/21 History amoxicillin-pot clavulanate 1 tab PO BID #14 tab 02/21/21 02/21/21 Rx [Augmentin] clindamycin HCl 450 mg PO TID 7 Days #63 cap 02/21/21 02/21/21 Rx Exam Narrative Exam Narrative: General: pleasant middle-aged male, appears comfortable, A&Ox3, no distress Neuro: no focal deficits Psych: appropriate speech pattern/content SKin: 4th digit RUE mildly erythematous, edematous; white discoloration in 2-3 mm spot on the lateral surface of the finger. Able to bend finger. No evidence of erythema or swelling in any other digits or the hand. ROM of the hand is intact. Nail malformations c/w psoriasis. No lesions on feet. HEENT: Atraumatic, normocephalic, EOMI, dry MM, clear oropharynx, no submandibular or cervical lymphadenopathy, no goiter or JVD Heart: RRR, no m/r/g, not tachycardic Lungs: CTAB GI: soft, nontender, nondistended : deferred Extremities: no edema BLE's, see skin exam above. 1+ pedal pulses B; no clubbing or cyanosis Results Imaging Additional studies: XR finger: No significant radiographic findings. Labs Result diagrams: 02/21/21 17:09 02/21/21 17:09 Labs: Laboratory Results - last 24 hr 02/21/21 02/21/21 02/21/21 16:58 17:09 17:09 WBC 16.35 H RBC 5.05 Hgb 13.8 Hct 42.2 MCV 83.6 MCH 27.3 MCHC 32.7 RDW 13.3 Plt Count 342 MPV 9.1 Immature Gran % 0.3 Neutrophils % 80.6 Lymphocytes % 10.0 Monocytes % 8.6 Eosinophils % 0.2 Basophils % 0.3 Nucleated RBC % 0 Absolute Neutrophils 13.18 H Absolute Lymphocytes 1.64 Absolute Monocytes 1.41 H Absolute Eosinophils 0.03 Absolute Basophils 0.05 ESR VBG Lactate 1.1 Sodium 139 Potassium 4.3 Chloride 102 Carbon Dioxide 24.9 Anion Gap 12.1 H BUN 25 H Creatinine 1.4 H Estimated GFR/1.73 m2 52.81 Glucose 124 H Calcium 9.5 Total Bilirubin 0.5 AST 20 ALT 35 Alkaline Phosphatase 117 H C-Reactive Protein C-React Prot High Sens Total Protein 8.3 H Albumin 4.4 COVID-19 Source 02/21/21 02/21/21 02/21/21 17:09 17:09 17:54 WBC RBC Hgb Hct MCV MCH MCHC RDW Plt Count MPV Immature Gran % Neutrophils % Lymphocytes % Monocytes % Eosinophils % Basophils % Nucleated RBC % Absolute Neutrophils Absolute Lymphocytes Absolute Monocytes Absolute Eosinophils Absolute Basophils ESR 22 H VBG Lactate Sodium Potassium Chloride Carbon Dioxide Anion Gap BUN Creatinine Estimated GFR/1.73 m2 Glucose Calcium Total Bilirubin AST ALT Alkaline Phosphatase C-Reactive Protein 5.39 H C-React Prot High Sens Cancelled Total Protein Albumin COVID-19 Source 02/21/21 18:58 WBC RBC Hgb Hct MCV MCH MCHC RDW Plt Count MPV Immature Gran % Neutrophils % Lymphocytes % Monocytes % Eosinophils % Basophils % Nucleated RBC % Absolute Neutrophils Absolute Lymphocytes Absolute Monocytes Absolute Eosinophils Absolute Basophils ESR VBG Lactate Sodium Potassium Chloride Carbon Dioxide Anion Gap BUN Creatinine Estimated GFR/1.73 m2 Glucose Calcium Total Bilirubin AST ALT Alkaline Phosphatase C-Reactive Protein C-React Prot High Sens Total Protein Albumin COVID-19 Source Nasal/nares Last Vital Signs Temp 36.6 C 02/21/21 19:07 Pulse 96 H 02/21/21 19:07 Resp 15 02/21/21 19:07 BP 120/71 02/21/21 19:07 Pulse Ox 99 02/21/21 19:07 COVID-19 Screening Have you, or household traveled for leisure in last 14 days?: No
[2021-02-21] MEDS: Normal Saline 1,000 ML 100 ML IV (20:59)
[2021-02-21] MEDS: Normal Saline Flush 10 ML SYR IVP (21:15)
[2021-02-21] MEDS: Insulin Aspart 300 UNITS/3 ML PEN SC (22:06)
[2021-02-21] MEDS: Omeprazole 20 MG CAPCR PO (22:43)
[2021-02-21 23:18] LABS: COVID-19 PCR Negative (Negative)
[2021-02-22] VITALS (10 sets, daily range): BP systolic 123–146; BP diastolic 65–88; PULSE 83–106; RESP 16–18; TEMP 36.5–37.8; O2SAT 97–100; BMI 21.7
[2021-02-22] MEDS: Normal Saline 1,000 ML 100 ML IV (06:05)
[2021-02-22] MEDS: Dextrose 50%-Water 25 GM/50 ML SYR IVP (06:19)
[2021-02-22 06:38] LABS: Abs Immature Grans 0.06 10^3/uL (0.0-0.06); Absolute Basophil Count 0.06 10^3/uL (0.0-0.2); Absolute Eosinophil Count 0.36 10^3/uL (0.0-0.7); Absolute Lymphocyte Count 1.89 10^3/uL (1.2-3.4); Absolute Monocyte Count 1.24 10^3/uL (0.1-0.8); Absolute Neutrophil Count 8.28 10^3/uL (1.2-6.7); Basophils % 0.5; HCT 38.3 % (40.0-50.0); HGB 12.4 g/dL (13.5-17.5); Immature Grans % 0.5; Lymphocytes % 15.9; MCH 27.1 pg (27.0-33.0); MCHC 32.4 % (32.0-36.0); MCV 83.8 fL (80-95); MPV 9.1 fL (8.0-11.0); Monocytes % 10.4; Neutrophils % 69.7; Nucleated RBC 0 %; Platelet Count 301 10^3/uL (130-400); RBC 4.57 10^6/uL (4.36-5.78); RDW 13.6 % (11.8-14.1); RDW-SD 41.9 fL; WBC 11.88 10^3/uL (4.4-10.8)
[2021-02-22] MEDS: Ketorolac 15 MG/ML VIAL IVP ×2 (06:40→15:27)
[2021-02-22] MEDS: Normal Saline Flush 10 ML SYR IVP ×3 (06:40→15:27)
[2021-02-22 06:49] LABS: Prothrombin Time 9.6 sec (9.3-11.0)
[2021-02-22] MEDS: DEXTROSE 5%-0.9% SALINE 1,000 ML 100 ML IV (06:59)
[2021-02-22 07:01] LABS: Anion Gap 9.6 mmol/L (3-11); BUN 26 mg/dL (7-18); CO2 26.4 mmol/L (21.0-32.0); CREATININE 1.2 mg/dL (0.70-1.30); Calcium 8.9 mg/dL (8.5-10.1); Chloride 107 mmol/L (98-107); Glucose 63 mg/dL (74-106); Magnesium 2.1 mg/dL (1.8-2.4); Potassium 4.3 mmol/L (3.5-5.1); Sodium 143 mmol/L (136-145); TSH (W/Ref FT4) 1.79 uIU/mL (0.36-3.74)
--- NOTE | 2021-02-22 07:14 | W.ANESPRE ---
General Info Date of Service Date Performed: 02/22/21 Height: 5 ft 6.93 in Weight: 62.596 kg Body Mass Index (BMI): 21.7 Meds Allergies and Home Medications Allergies Allergy/AdvReac Type Severity Reaction Status Date / Time Sulfa (Sulfonamide AdvReac Intermediate NAUSEA Verified 02/21/21 16:43 Antibiotics) DUST Allergy Intermediate NASAL Uncoded 02/21/21 16:43 CONGESTION Home Medication Medication Instructions Recorded loratadine 10 mg PO DAILY PRN tab-cap 12/29/12 omeprazole magnesium [Prilosec OTC] 1 tab PO BID #180 tab-cap 10/19/14 BD Insulin Syringe #200 syringe 04/19/15 ascorbic acid (vitamin C) [Vitamin 1 tab PO DAILY 06/02/15 C] fluticasone propionate 1 - 2 spr NS DAILY PRN #1 bottle 10/15/15 glucosam-chond al-[id number]-bk ac 2 ea PO BID 09/30/17 Enbrel Sureclick 50 mg SQ Weekly 12/09/17 blood sugar diagnostic #180 strip 04/23/19 pen needle, diabetic 32 gauge x #200 ndl 12/31/19 empagliflozin 25 mg tablet 25 mg PO DAILY #90 tab-cap 02/18/20 pen needle, diabetic 32 gauge x #90 unit 05/31/2010/30 pen needle, diabetic 32 gauge x #100 each 06/09/20 metformin 1,000 mg tablet 1,000 mg PO BID #180 tab-cap 07/26/20 insulin aspart U-100 100 unit/mL 5 unit SUBCUT AC ml 10/06/20 (3 mL) subcutaneous pen meloxicam 15 mg tablet 15 mg PO DAILY #60 tab-cap 01/11/21 Lantus Solostar U-100 Insulin 13 unit IM/SC BID 02/20/21 glipizide 5 mg PO HS 02/20/21 glipizide 10 mg PO DAILY 02/20/21 amoxicillin-pot clavulanate 1 tab PO BID #14 tab 02/21/21 [Augmentin] clindamycin HCl 450 mg PO TID 7 Days #63 cap 02/21/21 Current Visit Medications: Current Medications Generic Name Dose Route Start Last Admin Trade Name Freq PRN Reason Stop Dose Admin Acetaminophen 650 mg 02/21/21 19:51 Acetaminophen 325 Mg Tab PO Q4H PRN PRN Ascorbic Acid 500 mg 02/22/21 08:30 Ascorbic Acid 500 Mg Tab PO DAILY ELMO Dextrose 0 gm 02/21/21 19:56 Glucose 40% Oral Solution 15 Gm/37.5 Gm Tube PO DIRECTED PRN Dextrose/Water 0 gm 02/21/21 19:56 02/22/21 06:19 Dextrose 50%-Water 25 Gm/50 Ml Syr IVP 12.5 gm DIRECTED PRN Administration Dimethicone/Zinc Oxide 0 gm 02/21/21 19:51 Esperanza Protect Cream 142 Gm Tube TP PRN PRN Docusate Sodium 100 mg 02/21/21 19:51 Docusate Sodium 100 Mg Cap PO TID PRN PRN Fluticasone Propionate 0 gm 02/21/21 20:02 Fluticasone Nasal [place] 16 Gm Btl NS DAILY PRN PRN Ceftriaxone Sodium/Dextrose 2 gm in 50 mls @ 100 mls/hr 02/22/21 18:00 Rocephin IVPB Q24H [facility] Vancomycin HCl 1,000 mg/ 250 mls @ 250 mls/hr 02/22/21 18:00 Sodium Chloride IV Q24H [facility] Protocol Dextrose/Sodium Chloride 1,000 mls @ 100 mls/hr 02/22/21 08:00 02/22/21 06:59 Dextrose 5%-Ns IV 100 mls/hr INFUSION [facility] Administration IV Miscellaneous Supplies 1 each 02/21/21 17:00 Iv Access IV DIRECTED [facility] Insulin Aspart 0 units 02/21/21 06:00 02/22/21 06:06 Insulin Aspart 300 Units/3 Ml Pen SC Not Given Q6H [facility] Protocol Ketorolac Tromethamine 15 mg 02/21/21 20:03 02/22/21 06:40 Ketorolac 15 Mg/Ml Vial IVP 02/26/21 20:02 15 mg Q6H PRN PRN Administration Loratadine 10 mg 02/21/21 21:00 Loratidine 10 Mg Tab PO DAILY PRN PRN Magnesium Hydroxide 30 ml 02/21/21 19:51 Milk Of Magnesia 30 Ml Cup PO DAILY PRN PRN Non-Formulary Medication 2 each 02/22/21 08:30 Glucosam-Chond Fp-Gkkmnm-Ih Ac PO BID [facility] Omeprazole 20 mg 02/21/21 22:30 02/21/21 22:43 Omeprazole 20 Mg Capcr PO 20 mg BID ELMO Administration Sodium Chloride 10 ml 02/21/21 20:58 02/22/21 06:40 Normal Saline Flush 10 Ml Syr IVP 20 ml PRN PRN Administration PFSH Active Problems Active Problems: Problem Status Onset Code Sepsis A41.9 Need for discharge planning DVT prophylaxis Z29.9 Cellulitis of right ring finger L03.011 Weight loss R63.4 History of cataract removal with insertion of prosthetic lens Z98.49, Z96.1 History of esophagogastroduodenoscopy Z98.890 History of spinal surgery Z98.890 Huang esophagus K22.70 Stress reaction, emotional F43.9 Psoriatic arthritis 10/02/12 L40.50 Psoriasis L40.9 Peptic reflux disease K21.9 Osteoporosis 08/18/15 M81.0 Male infertility N46.9 Insulin dependent type 2 diabetes mellitus, uncontrolled E11.65, Z79.4 Idiopathic scoliosis M41.20 History of tobacco use Z87.891 Gout 08/26/12 M10.9 Gastroesophageal reflux disease with esophagitis 08/09/15 K21.0 Cataract H26.9 Arthritis 10/02/12 M19.90 Anemia 08/18/15 D64.9 Medical History Medical History Anemia (08/18/15) iron deficiency extensive GI workup. Seen Heme [place] [facility] [place] idiopathic but perhaps occult GI bleed Arthritis (10/02/12) PSORIATIC Huang esophagus Cataract O.D. Gastroesophageal reflux disease with esophagitis (08/09/15) Barretts esophagus Gout (08/26/12) History of tobacco use Idiopathic scoliosis Adorno Moreno placed at age 15; chest deformity; likely restrictive lung disease Insulin dependent type 2 diabetes mellitus, uncontrolled Male infertility Osteoporosis (08/18/15) Peptic reflux disease Psoriasis Psoriatic arthritis (10/02/12) Weight loss Surgical History Surgical History EGD - MAC EGD/COLO (08/09/15) [facility]THE[facility] Extraction of cataract (~2009) spinal canal structure surgery adorno moreno placed age 15 Tobacco Smoking/Tobacco Use Status: Former Tobacco Use Passive smoking exposure: Yes Alcohol Alcohol Intake: former Substance Use Substance use: Never Substance use type: does not use Vital Signs and Lab Results Vital Signs Most Recent Vital Signs in EMR: Most Recent Vital Signs Temp Pulse Resp BP Pulse Ox 36.6 C 102 H 18 146/84 H 99 02/22/21 03:28 02/22/21 03:28 02/22/21 03:28 02/22/21 03:28 02/22/21 03:28 Point of Care Results Point of Care Results: Finger Stick Blood Glucose 142 02/22/21 06:46 Lab Results Result Diagrams: 02/22/21 06:20 02/22/21 06:20 Blood Type / Crossmatch: No Data to Display Complete Blood Count: White Blood Count 11.88 10^3/uL (4.4-10.8) H 02/22/21 06:20 02/22/21 Red Blood Count 4.57 10^6/uL (4.36-5.78) 02/22/21 06:20 02/22/21 Hemoglobin 12.4 g/dL (13.5-17.5) L 02/22/21 06:20 02/22/21 Hematocrit 38.3 % (40.0-50.0) L 02/22/21 06:20 02/22/21 Platelet Count 301 10^3/uL (130-400) 02/22/21 06:20 02/22/21 Complete Metabolic Panel: Sodium Level 143 mmol/L (136-145) 02/22/21 06:20 02/22/21 Potassium Level 4.3 mmol/L (3.5-5.1) 02/22/21 06:20 02/22/21 Chloride Level 107 mmol/L (98-107) 02/22/21 06:20 02/22/21 Carbon Dioxide Level 26.4 mmol/L (21.0-32.0) 02/22/21 06:20 02/22/21 Blood Urea Nitrogen 26 mg/dL (7-18) H 02/22/21 06:20 02/22/21 Creatinine 1.2 mg/dL (0.70-1.30) 02/22/21 06:20 02/22/21 Magnesium Level 2.1 mg/dL (1.8-2.4) 02/22/21 06:20 02/22/21 Calcium Level 8.9 mg/dL (8.5-10.1) 02/22/21 06:20 02/22/21 Albumin 4.4 g/dL (3.4-5.0) 02/21/21 17:09 02/21/21 Glucose Level 63 mg/dL (74-106) L 02/22/21 06:20 02/22/21 Hemoglobin A1c 8.6 % (<5.7) H 01/12/21 11:45 01/12/21 C-Reactive Protein 5.50 mg/dL (0.0-0.3) H 02/22/21 06:20 02/22/21 Liver Function Panel: Alanine Aminotransferase (ALT/SGPT) 35 U/L (16-63) 02/21/21 17:09 02/21/21 Aspartate Amino Transf (AST/SGOT) 20 U/L (15-37) 02/21/21 17:09 02/21/21 Gamma Glutamyl Transpeptidase 28 U/L (15-85) 10/23/12 14:11 10/23/12 Coagulation Panel: INR International Normalized Ratio 1.0 (0.9-1.1) 02/22/21 06:20 02/22/21 Prothrombin Time 9.6 sec (9.3-11.0) 02/22/21 06:20 02/22/21 D-Dimer 2665 ng/mlFEU (65-500) H 08/23/15 10:57 08/23/15 Cardiac Panel: No Data to Display Arterial Blood Gas: No Data to Display Venous Blood Gas: Venous Blood Lactate 1.1 mmol/L (0.6-1.4) 02/21/21 16:58 02/21/21 Pancreas Panel: No Data to Display Thyroid Panel: Thyroid Stimulating Hormone (TSH) 1.79 uIU/mL (0.36-3.74) 02/22/21 06:20 02/22/21 Infectious Disease: Coronavirus (COVID-19)(PCR) Negative (Negative) 02/21/21 18:58 02/21/21 Coronavirus 2019 Source Nasal/nares 02/21/21 18:58 02/21/21 Blood Cultures: No Data to Display Toxicology Panel: No Data to Display Imaging and Studies Imaging and Studies EKG Summary:: 4/28/21: Conclusion Sinus tachycardia...rate> 99 Probable left atrial enlargement...P >50mS, <-0.10mV V1 ST elev, probable normal early repol pattern...ST elevation, age<55 I have reviewed and interpreted ECG and agree with software generated interpretation. Anesthesia Assessment and Plan Anesthesia History Personal History: No History of Anesthesia Complications Family History: No Family History of Anesthesia Complications Exercise Tolerance Exercise Tolerance: Metabolic Equivalents>4 Pertinent Negatives Pertinent Negatives: No Symptoms of GERD Cardiac & Pulmonary Exam Cardiac Exam: Normal S1/S2 Heart Sounds Pulmonary Exam: Clear Bilateral Breath Sounds Airway Exam Known Difficult Airway: No Mallampati Class: 1 Mouth Opening: Normal (> 3cm) Thyromental Distance: Greater than 3 cm Neck Range of Motion: Full ROM Neck Circumference: Normal Teeth Condition: Normal Dentition ASA Classification ASA Score: ASA 2 ASA Emergency: No NPO Status NPO Status: NPO Clears >2 hours, Solids >8 hours Anesthesia Plan Anesthesia Technique: General Anesthesia Airway Planned: Natural Airway Monitors Used: Standard Monitors
--- NOTE | 2021-02-22 08:20 | DI.RAD_ITS ---
EXAM: XR PORTABLE CHEST AP CLINICAL HISTORY: preop testing. TECHNIQUE: 2D digital imaging was performed. COMPARISON: CR CHEST 2 VIEWS PA,LAT from 08/23/2015 FINDINGS: Heart size is normal. The mediastinum is not widened. Adorno dominguez is again noted. Thoracic scoliosis convex right again noted. Lungs are clear. No infiltrates. No pleural effusions. No pulmonary edema. No pneumothorax. IMPRESSION: No acute pulmonary findings on this single AP portable view of the chest. Scoliosis noted. Adorno dominguez. DATA REPOSITORY: RADIATION DOSE DELIVERED: All CT scans at this facility use at least one of these dose optimization techniques: automated exposure control; mA and/or kV adjustment per patient size (includes targeted e xams where dose is matched to clinical indication); or iterative reconstruction.
[2021-02-22] MEDS: VANCOMYCIN/WATER (PEG) 1 GM/200 ML BAG IV ×2 (08:22→18:03)
--- NOTE | 2021-02-22 08:46 | PDOC.CMIN ---
- If Service Date Differs Date of service: 02/22/21 Time of Service: 08:46 Care Management Initial Assess REASON FOR HOSPITALIZATION:: sepsis PAST MEDICAL HISTORY/PAST SURGICAL HISTORY:: Medical History . Anemia (08/18/15). iron deficiency. extensive GI workup. Seen Heme at [facility] [place]. idiopathic but perhaps occult GI bleed. Arthritis (10/02/12). PSORIATIC. Huang esophagus. Cataract. O.D. Gastroesophageal reflux disease with esophagitis (08/09/15). Barretts esophagus. Gout (08/26/12). History of tobacco use. Idiopathic scoliosis. Adorno Moreno placed at age 15; chest deformity; likely restrictive lung disease. Insulin dependent type 2 diabetes mellitus, uncontrolled. Male infertility. Osteoporosis (08/18/15). Peptic reflux disease. Psoriasis. Psoriatic arthritis (10/02/12). Weight loss. Surgical History . EGD - MAC. EGD/COLO (08/09/15). [facility] MATTHEWS. Extraction of cataract (~2009). spinal canal structure surgery. adorno moreno placed age 15 PREVIOUS FUNCTIONAL STATUS/SOCIAL/FAMILY SUPPORTS:: Ervin lives in an apartment in [place] with his Darcy. They have 2 adult children that he states adopted them. They have known both since they were young and have had a close relationship with them as they were growing up. Ervin has been working for [employer] for the past 10 years and truly enjoys his job. He is independent in the community and receives no services. CURRENT FUNCTIONAL STATUS:: Ervin was sitting up in bed when CM met with him. He was pleasant and engaged readily with CM. Ervin talked a bit about his work and also about his kids. He and Darcy, his , have no children of their own, but function as parents to 2 young adults they have been close to for a long time. Ervin is scheduled to have surgery today and was anxiously waiting. He shared that he is starving and wants it over with so he can eat. Ervin also expressed that he wants to go back to work as soon as possible. ADVANCE DIRECTIVES:: None on file. Has incomplete documents at home Has patient been provided with info about the portal/API?: Yes Did the patient sign up for the portal?: No CODE STATUS:: Full Code INSURANCE COVERAGE / FINANCIAL ISSUES:: [facility] CURRENT HOME/COMMUNITY SERVICES/EQUIPMENT:: none PRIMARY CARE PHYSICIAN:: Maciej Szymanski POTENTIAL DISCHARGE NEEDS:: Follow up with PCP and plan of care PATIENT/FAMILY EDUCATION NEEDS:: Review of discharge instructions, ,edications, activity, follow up plan, limitations, Ask Me Three TRANSPORTATION:: via private vehicle with PLAN:: Ervin will likely return home with no new services. He will follow up with his community providers and plan of care and transport with his . CM will continue to support Ervin and his family and assess for discharge planning needs.
--- NOTE | 2021-02-22 12:29 | W.PM.PROGNOT ---
Date of Service Date of service: 02/22/21 Time of Service: 12:29 Assessment and Plan Assessment and plan (1) Sepsis: Start date: 02/22/21 Start time: 12:31 Status: Acute Assessment and plan: Due to cellulitis and possible abscess of 4th digit RUE. Infectious Continue vancomycin/ceftriaxone Blood cutlures pending Immunocommprommised on enbrel for psoriatic arthritis. OR today with Dr. Carmona (2) Cellulitis of right ring finger: Start date: 02/22/21 Start time: 12:32 Status: Acute Assessment and plan: As above (3) Insulin dependent type 2 diabetes mellitus, uncontrolled: Start date: 02/22/21 Start time: 12:32 Status: Chronic Assessment and plan: Hypoglycemic this am - NPO. Add D5 to MIVF. Monitor BGs. Hold long acting insulin. Care management/DM educator to address issues with insurance covering CGM. Will change status after surgery and give po (4) Gastroesophageal reflux disease with esophagitis: Start date: 02/22/21 Start time: 12:33 Status: Chronic Assessment and plan: Continue PPI (5) DVT prophylaxis: Start date: 02/22/21 Start time: 12:33 Status: Acute Assessment and plan: TEDs/SCDs. Hold chemical DVT ppx in anticipation of surgery (6) Need for discharge planning: Start date: 02/22/21 Start time: 12:33 Status: Acute Assessment and plan: Full code. above case discussed with Dr. Knapp Subjective Subjective Patient reports: no new complaints Interval history since last seen: Sleeping easily arouses, no complaints awaiting surgery at this time. Exam Narrative Exam Narrative: General: pleasant middle-aged male,sleeping in bed awakes easily, AAOx3 comfortable Neuro: no focal deficits Psych: appropriate speech pattern/content SKin: 4th digit RUE mildly erythematous, edematous; white discoloration in 2-3 mm spot on the lateral surface of the finger. Able to bend finger. No evidence of erythema or swelling in any other digits or the hand. ROM of the hand is intact. Nail malformations c/w psoriasis. No lesions on feet. HEENT: Atraumatic, normocephalic, EOMI, dry MM, clear oropharynx, no submandibular or cervical lymphadenopathy, no goiter or JVD Heart: RRR, no m/r/g, not tachycardic Lungs: CTAB GI: soft, nontender, nondistended Extremities: no edema BLE's, see skin exam above. 1+ pedal pulses B; no clubbing or cyanosis Objective Last Vital Signs Temp 37.0 C 02/22/21 07:30 Pulse 92 H 02/22/21 10:30 Resp 18 02/22/21 07:30 BP 123/77 02/22/21 07:30 Pulse Ox 97 02/22/21 07:30 Laboratory Results - last 24 hr 02/21/21 02/21/21 02/21/21 16:58 17:09 17:09 WBC 16.35 H RBC 5.05 Hgb 13.8 Hct 42.2 MCV 83.6 MCH 27.3 MCHC 32.7 RDW 13.3 Plt Count 342 MPV 9.1 Immature Gran % 0.3 Neutrophils % 80.6 Lymphocytes % 10.0 Monocytes % 8.6 Eosinophils % 0.2 Basophils % 0.3 Nucleated RBC % 0 Absolute Neutrophils 13.18 H Absolute Lymphocytes 1.64 Absolute Monocytes 1.41 H Absolute Eosinophils 0.03 Absolute Basophils 0.05 ESR PT INR VBG Lactate 1.1 Sodium 139 Potassium 4.3 Chloride 102 Carbon Dioxide 24.9 Anion Gap 12.1 H BUN 25 H Creatinine 1.4 H Estimated GFR/1.73 m2 52.81 Glucose 124 H Calcium 9.5 Magnesium Total Bilirubin 0.5 AST 20 ALT 35 Alkaline Phosphatase 117 H C-Reactive Protein C-React Prot High Sens Total Protein 8.3 H Albumin 4.4 TSH COVID-19 Source SARS-CoV-2 (PCR) 02/21/21 02/21/21 02/21/21 17:09 17:09 17:54 WBC RBC Hgb Hct MCV MCH MCHC RDW Plt Count MPV Immature Gran % Neutrophils % Lymphocytes % Monocytes % Eosinophils % Basophils % Nucleated RBC % Absolute Neutrophils Absolute Lymphocytes Absolute Monocytes Absolute Eosinophils Absolute Basophils ESR 22 H PT INR VBG Lactate Sodium Potassium Chloride Carbon Dioxide Anion Gap BUN Creatinine Estimated GFR/1.73 m2 Glucose Calcium Magnesium Total Bilirubin AST ALT Alkaline Phosphatase C-Reactive Protein 5.39 H C-React Prot High Sens Cancelled Total Protein Albumin TSH COVID-19 Source SARS-CoV-2 (PCR) 02/21/21 02/22/21 02/22/21 18:58 06:20 06:20 WBC 11.88 H RBC 4.57 Hgb 12.4 L Hct 38.3 L MCV 83.8 MCH 27.1 MCHC 32.4 RDW 13.6 Plt Count 301 MPV 9.1 Immature Gran % 0.5 Neutrophils % 69.7 Lymphocytes % 15.9 Monocytes % 10.4 Eosinophils % 3.0 Basophils % 0.5 Nucleated RBC % 0 Absolute Neutrophils 8.28 H Absolute Lymphocytes 1.89 Absolute Monocytes 1.24 H Absolute Eosinophils 0.36 Absolute Basophils 0.06 ESR PT INR VBG Lactate Sodium 143 Potassium 4.3 Chloride 107 Carbon Dioxide 26.4 Anion Gap 9.6 BUN 26 H Creatinine 1.2 Estimated GFR/1.73 m2 >= 60.00 Glucose 63 L D Calcium 8.9 Magnesium 2.1 Total Bilirubin AST ALT Alkaline Phosphatase C-Reactive Protein 5.50 H C-React Prot High Sens Total Protein Albumin TSH 1.79 COVID-19 Source Nasal/nares SARS-CoV-2 (PCR) Negative 02/22/21 06:20 WBC RBC Hgb Hct MCV MCH MCHC RDW Plt Count MPV Immature Gran % Neutrophils % Lymphocytes % Monocytes % Eosinophils % Basophils % Nucleated RBC % Absolute Neutrophils Absolute Lymphocytes Absolute Monocytes Absolute Eosinophils Absolute Basophils ESR PT 9.6 INR 1.0 VBG Lactate Sodium Potassium Chloride Carbon Dioxide Anion Gap BUN Creatinine Estimated GFR/1.73 m2 Glucose Calcium Magnesium Total Bilirubin AST ALT Alkaline Phosphatase C-Reactive Protein C-React Prot High Sens Total Protein Albumin TSH COVID-19 Source SARS-CoV-2 (PCR)
[2021-02-22] MEDS: Sodium Bicarbonate 50 MEQ/50 ML SYR (12:30)
--- NOTE | 2021-02-22 13:00 | ROE_ITS ---
Date of service: 02/22/21 Time of Service: 13:00 Operative Note Operative Note DATE OF PROCEDURE: 02/22/21 PRE-OP DIAGNOSIS: Right ring infection POST-OP DIAGNOSIS: same Right ring finger distal ulnar abscess with surrounding cellulitis PROCEDURE: Right ring finger irrigation debridement SURGEON: Odilon Carmona COPPER FLOTATION OPERATOR: None None ANESTHESIA TYPE: Local By Surgeon and MAC Refer to Anesthesia Record ESTIMATED BLOOD LOSS: 5 PATHOLOGY: other (2x anaerobic and aerobic wound cultures) TOURNIQUET TIME: 0 COMPLICATIONS: None Patient was transported to: PACU Patient's condition: stable Indications: Please see complete medical record for details. Findings: Moderate purulence localized to ulnar aspect right ring finger distal phalanx just distal to the DIPJ. Cellulitis largely localized ulnarly. no extension to the distal finger pulp. No extension along the flexor or extensor tendon areas. No cellulitis proximal to MCP J. Procedure Description: In the operating room, monitored anesthesia care was commenced. The patient was positioned supine on the operating room table. All bony prominences were well-padded. Preoperative antibiotics were held pending cultures. The right hand was prepped and draped in the usual sterile fashion. The correct patient, procedure, and side of the procedure were all verified prior to beginning. Under sterile technique 10 cc of 1% lidocaine containing epinephrine and 1 cc of sodium bicarbonate was distributed as a digital block volarly proximal to the ring finger. Nerve block was tested found of excellent control of pain. The abscess was localized and a 15 blade used to make a 1 cm longitudinal incision centered over the area of obvious purulence somewhat midaxial taking care to only incise the skin and no deep neurovascular bundle. Immediate purulence was encountered. This purulence was expressed bluntly and 2 sets of anaerobic and aerobic cultures were obtained. Blunt spreading forceps were then used to spread in all directions confirming no extension into any deep space flexor or extension or plaque proximal. There is slight distal extension superficial ulnarly. More pus was encountered and expressed. A tight bandage was then used from the MCP J working toward the distal phalanx to confirm all purulence have been expressed from the wound. This was repeated from the fingertip along the distal phalanx short distance of the wound. The finger was then ranged thoroughly with no additional purulence exposed. The wound was copiously irrigated with normal saline with a syringe involved irrigation into the small wound. The finger was then soaked in dilute Betadine normal saline solution for a few minutes while preparing final dressing. The finger and hand were inspected again no additional purulence were encountered no additional signs of infection or purulence encountered. Hand and fingers dried. Iodoform packing was then used to maintain the small wound opening and pack locally immediate co uple centimeter proximally and radially. The iodoform was then covered with Xeroform, for 4 gauze, and then Kerlix used to wrapped gently this bandage in place about the ring finger digit and secured to the hand and wrist. The patient was awake especially at the end of the case. The findings of largely localized distal finger abscess with surrounding cellulitis were discussed with him. Plan to maintain the bandage, elevation, and may work on range of motion today. Likely safe for discharge home tomorrow about 24 hours post?procedure on oral antibiotics. Will remove small packing and change dressing tomorrow and ensure finger infection is appropriately healing. Will follow cultures to best guide antibiotic management. Will copy note to primary medical team.
--- NOTE | 2021-02-22 14:11 | PHA.REVIEW ---
Pharmacy Admission Review - Admission Clinical Review (Last Reviewed 02/21/21 @ 19:28 by IDALIA Cannon) Sepsis (Acute) Need for discharge planning (Acute) DVT prophylaxis (Acute) Cellulitis of right ring finger (Acute) Sulfa (Sulfonamide Antibiotics) Adverse Reaction (Intermediate, Verified 02/21/21 16:43) NAUSEA DUST Allergy (Intermediate, Uncoded 02/21/21 16:43) NASAL CONGESTION Height 5 ft 6.93 in Weight 62.596 kg - Renal Dosing Renal Dosing: BUN 26 mg/dL (7-18) H 02/22/21 06:20 Creatinine 1.2 mg/dL (0.70-1.30) 02/22/21 06:20 Medications needing adjustments: Reviewed List of meds needing interventions: eCrCl 62.31 ml/min - Anticoagulation Anticoagulation: Hgb 12.4 g/dL (13.5-17.5) L 02/22/21 06:20 Hct 38.3 % (40.0-50.0) L 02/22/21 06:20 Plt Count 301 10^3/uL (130-400) 02/22/21 06:20 INR 1.0 (0.9-1.1) 02/22/21 06:20 Creatinine 1.2 mg/dL (0.70-1.30) 02/22/21 06:20 DVT Prohphylaxis: N/A (held on admission due to pending surgery) Therapeutic Anticoagulation: N/A - Opiate Usage Evaluate Pain Scale/Pains Meds: N/A Scheduled Bowel Reg ordered if on Opiates?: No - Relevant Labs ESR 22 mm//hr (0-20) H 02/21/21 17:09 Sodium 143 mmol/L (136-145) 02/22/21 06:20 Potassium 4.3 mmol/L (3.5-5.1) 02/22/21 06:20 Chloride 107 mmol/L (98-107) 02/22/21 06:20 Magnesium 2.1 mg/dL (1.8-2.4) 02/22/21 06:20 C-Reactive Protein 5.50 mg/dL (0.0-0.3) H 02/22/21 06:20 Electrolytes, C-Reactive P, ESR: Reviewed - DM Control DM Control: Glucose 63 mg/dL (74-106) L D 02/22/21 06:20 Finger Stick Blood Glucose 136 Finger Stick Blood Glucose 136 Finger Stick Blood Glucose 136 Finger Stick Blood Glucose 111 Finger Stick Blood Glucose 111 Finger Stick Blood Glucose 142 Finger Stick Blood Glucose 142 Insulin Dosing: Reviewed - Heart Failure/NC EF%, NICKY's, B-Blockers, Diuretics: N/A - BP Control BP Control: Blood Pressure 123/77 Blood Pressure 146/84 If elevated: Reviewed - Qtc Review If Elevated: Reviewed - IV to PO Switch IV Medications: Reviewed - Home Meds Home Med List reviewed: Reviewed Relevent Home Meds Not ordered & why?: jardiance, glipizide, metformin (ss insulin ordered), meloxicam - Current meds Current Medication Order Review: Reviewed - Comments Comments/Follow Ups: Ceftriaxone 2gm + Vancomycin 1gm q10h (pp)
[2021-02-22] MEDS: Acetaminophen 325 MG TAB 650 MG PO (15:43)
[2021-02-22] MEDS: Naproxen 500 MG TAB PO (16:26)
[2021-02-22] MEDS: Insulin Aspart 300 UNITS/3 ML PEN SC (17:14)
[2021-02-22] MEDS: cefTRIAXone 2 GM/50 ML BAG IVPB (17:14)
[2021-02-22] MEDS: oxyCODONE 5 MG TAB PO (18:02)
--- NOTE | 2021-02-22 19:41 | W.ANESPOSTOP ---
Postoperative Evaluation Date, Time and Location Date Performed: 02/22/21 Time Performed: 16:50 Patient Location: Med/Surg Vital Signs Most Recent Imported Vital Signs: Most Recent Vital Signs Temp Pulse Resp BP Pulse Ox 37.3 C 101 H 18 136/65 100 02/22/21 16:43 02/22/21 15:30 02/22/21 15:30 02/22/21 15:30 02/22/21 15:30 Pain Score Most Recent Pain Score: Most Recent Pain Score Pain Level 5 02/22/21 18:02 Assessment Mental Status: Awake (Alert & Oriented to Patient Baseline) Airway and Respiratory Function: Patent airway with normal (patient baseline) respiratory exam Cardiovascular Function: Hemodynamically Stable Hydration Status: Adequately Hydrated Nausea & Vomiting: No Nausea or Vomiting Pain: Pain is Moderate or Severe Postoperative Pain Management: Pain being addressed with medication and Ongoing pain, patient will be managed as an inpatient Peripheral Nerve Block: Patient did not receive a nerve block Teaching Patient Teaching: Advised to seek followup for the following concerns (See explanation) Concerns: Poorly Controlled Diabetes
[2021-02-22] MEDS: Omeprazole 20 MG CAPCR PO (20:01)
[2021-02-22] MEDS: Glucosamine/Chondroitin CAP 2 CAP PO (20:03)
[2021-02-22] MEDS: Insulin Glargine 300 UNITS/3 ML PEN 13 UNITS SC (22:30)
[2021-02-23] MEDS: VANCOMYCIN/WATER (PEG) 1 GM/200 ML BAG IV ×2 (03:45→13:40)
[2021-02-23] MEDS: Normal Saline Flush 10 ML SYR IVP ×2 (03:45→13:44)
[2021-02-23] MEDS: oxyCODONE 5 MG TAB PO (03:51)
[2021-02-23 03:55] VITALS: BP 125/76; PULSE 83; RESP 18; TEMP 36.4; O2SAT 100
[2021-02-23 07:07] LABS: Abs Immature Grans 0.01 10^3/uL (0.0-0.06); Absolute Basophil Count 0.05 10^3/uL (0.0-0.2); Absolute Eosinophil Count 0.39 10^3/uL (0.0-0.7); Absolute Lymphocyte Count 2.07 10^3/uL (1.2-3.4); Absolute Neutrophil Count 5.23 10^3/uL (1.2-6.7); Basophils % 0.6; Eosinophils % 4.5; Immature Grans % 0.1; Lymphocytes % 23.9; MCH 27.5 pg (27.0-33.0); MCHC 32.4 % (32.0-36.0); MCV 84.7 fL (80-95); MPV 9.2 fL (8.0-11.0); Monocytes % 10.4; Neutrophils % 60.5; Nucleated RBC 0 %; Platelet Count 288 10^3/uL (130-400); RBC 4.37 10^6/uL (4.36-5.78); RDW 13.5 % (11.8-14.1); RDW-SD 42.2 fL; WBC 8.65 10^3/uL (4.4-10.8)
[2021-02-23 07:37] LABS: Anion Gap 7.7 mmol/L (3-11); BUN 21 mg/dL (7-18); CO2 25.3 mmol/L (21.0-32.0); CREATININE 1.1 mg/dL (0.70-1.30); Calcium 8.7 mg/dL (8.5-10.1); Chloride 109 mmol/L (98-107); Glucose 66 mg/dL (74-106); Magnesium 1.9 mg/dL (1.8-2.4); Potassium 4.1 mmol/L (3.5-5.1); Sodium 142 mmol/L (136-145)
[2021-02-23 08:11] VITALS: BP 129/77; PULSE 92; RESP 17; TEMP 36.5; O2SAT 98
[2021-02-23] MEDS: Ascorbic Acid 500 MG TAB PO (08:39)
[2021-02-23] MEDS: Omeprazole 20 MG CAPCR PO ×2 (08:39→20:15)
[2021-02-23] MEDS: Naproxen 500 MG TAB PO (08:42)
[2021-02-23] MEDS: Glucosamine/Chondroitin CAP 2 CAP PO ×2 (08:42→20:15)
--- NOTE | 2021-02-23 10:56 | W.PM.PROGNOT ---
Date of Service Date of service: 02/23/21 Time of Service: 10:56 Assessment and Plan Assessment and plan (1) Sepsis: Start date: 02/23/21 Start time: 11:03 Status: Ruled-out Assessment and plan: BC NGTD. POD 1 I/D of 4th digit on Right hand Continue vancomycin/ceftriaxone day 2 Wound cultures rare gram positive cocci await sensitivities Immunocommprommised on enbrel for psoriatic arthritis. (2) Cellulitis of right ring finger: Start date: 02/23/21 Start time: 11:04 Status: Acute Assessment and plan: As above (3) Insulin dependent type 2 diabetes mellitus, uncontrolled: Start date: 02/23/21 Start time: 11:04 Status: Chronic Assessment and plan: Hypoglycemic this am , asymptomatic. Decreased lantus to 5 units at HS Monitor am glucose Care management/DM educator to address issues with insurance covering CGM. Continue CHO diet Continue Education with CGM, (4) Gastroesophageal reflux disease with esophagitis: Start date: 02/23/21 Start time: 11:06 Status: Chronic Assessment and plan: Continue PPI (5) DVT prophylaxis: Start date: 02/23/21 Start time: 11:06 Status: Acute Assessment and plan: TEDs/SCDs. He is also ambulatory (6) Need for discharge planning: Start date: 02/23/21 Start time: 11:06 Status: Acute Assessment and plan: Full code. Return home when medically cleared above case discussed with Dr. Knapp Subjective Subjective Patient reports: no new complaints Interval history since last seen: Patient had hypoglycemic event last night asymptomatic, decrease lantus to 5 units from 13. Afebrile overnight, Eating and drinking without difficulty. Exam Narrative Exam Narrative: General: pleasant middle-aged male,sleeping in bed awakes easily, AAOx3 comfortable Neuro: no focal deficits Psych: appropriate speech pattern/content SKin: is wrapped in bandage at this time. C/D/I HEENT: Atraumatic, normocephalic, EOMI, dry MM, clear oropharynx, no submandibular or cervical lymphadenopathy, no goiter or JVD Heart: RRR, no m/r/g, not tachycardic Lungs: CTAB GI: soft, nontender, nondistended Extremities: no edema BLE's, see skin exam above. 1+ pedal pulses B; no clubbing or cyanosis Objective Last Vital Signs Temp 36.5 C 02/23/21 08:11 Pulse 92 H 02/23/21 08:11 Resp 17 02/23/21 08:11 BP 129/77 02/23/21 08:11 Pulse Ox 98 02/23/21 08:11 Laboratory Results - last 24 hr 02/23/21 02/23/21 06:33 06:33 WBC 8.65 RBC 4.37 Hgb 12.0 L Hct 37.0 L MCV 84.7 MCH 27.5 MCHC 32.4 RDW 13.5 Plt Count 288 MPV 9.2 Immature Gran % 0.1 Neutrophils % 60.5 Lymphocytes % 23.9 Monocytes % 10.4 Eosinophils % 4.5 Basophils % 0.6 Nucleated RBC % 0 Absolute Neutrophils 5.23 Absolute Lymphocytes 2.07 Absolute Monocytes 0.90 H Absolute Eosinophils 0.39 Absolute Basophils 0.05 Sodium 142 Potassium 4.1 Chloride 109 H Carbon Dioxide 25.3 Anion Gap 7.7 BUN 21 H Creatinine 1.1 Estimated GFR/1.73 m2 >= 60.00 Glucose 66 L Calcium 8.7 Magnesium 1.9
[2021-02-23] MEDS: Insulin Aspart 300 UNITS/3 ML PEN SC ×2 (12:07→16:52)
--- NOTE | 2021-02-23 13:25 | W.INDIABCONS ---
Date of service: 02/23/21 Time of Service: 13:25 Diabetes Inpatient Consult DESCRIPTION/ASSESSMENT: Met with Ervin today to help him remove his Libre2 continuous glucose monitor. BMI on low end of normal. Ervin reports having Dm2 for last 14 years and has had a difficult time keeping his weight wnl while decreasing carbohydrate intake. Locally, he is working with Erik Sellers, [facility] and sees Dr. Szymanski at [facility]. He was admitted with cellulitis of right finger with sepsis and is on IV abx. Most recent A1c: 8.6%, indicating poorly controlled Dm. CGM reports indicates average blood sugars have been 174 mg/dl with many episodes of hyperglycemia/hypoglycemia. Report faxed to provider and given to hospitalist. Home DM meds include: 13 u lantus BID, 1000 mg metformin BID, 10 mg glipizide qd and jardiance. Ervin uses his CGM pre and post meals and doses with novolog as needed at meals. Ervin is a great candidate for a CGM in view of many hypo and hyper glycemic events with increased variability. Will benefit with continued use. Handy Worker to follow up with insurance to assist in insurance coverage in future. INTERVENTION: Diabetic Diet PLAN: will follow up with [employer] to aid in providing Chepe 2 sensors in future with current insurance company Will follow up with PCP and provide CGM download for outpatient medication adjustment recommend follow up for outpatient diabetes nutrition counseling Time Spent in Nutritional Counseling and Treatment: 20 min
--- NOTE | 2021-02-23 14:52 | CHAPLAIN ---
Ervin was resting in bed. He was very pleasant and easily engaged in conversation. He was waiting to have his bandage on his finger unwrapped today to see what it looks like. He was surprised how small a thing caused such a problem. He has been in touch with his , but Ervin drove their care here, so she will have to find another way to get here to visit.
--- NOTE | 2021-02-23 15:03 | PGE_ITS ---
Date of Service Date of service: 02/23/21 Time of Service: 15:03 Assessment and Plan Assessment and plan (1) Abscess of right ring finger: Status: Acute Assessment and plan: 55-year-old male postop day #1 status post right ring finger distal ulnar abscess irrigation and drainage with surrounding cellulitis. Leukocytosis resolved today. Finger mildly clinically improved although moderate swelling and cellulitis remain. Operative dressing removed. Wound care ordered to include twice daily finger soaks in 50:50 mixture normal saline and hydrogen peroxide for 10 minutes. Dry with gauze. Cover with wide Band-Aid. Strict elevation of the hand and finger at all times. Patient to perform range of motion exercises tolerated. May hold off on formal hand therapy or occupa tional therapy for now. Discussed with primary medical team as well as the patient. Likely MRSA infection given history of these infections. Possible discharge home today on empiric oral antibiotics for MRSA soft tissue infection, but likely prudent to continue inpatient status and IV antibiotics pending sensitivities given risks for failure. Recommend repeating CRP tomorrow 48 hours after previous value Discharge home when medically optimized from a diabetic glycemic control standpoint and when culture sensitivities determine oral antibiotic regimen Please call me directly with any questions or concerns (2) Cellulitis of right ring finger: Status: Acute Subjective Subjective Interval history since last seen: Feeling somewhat improved. Denies any fevers, chills, or worsening or extension of finger infection pain. Exam Narrative Exam Narrative: No acute distress. Resting comfortably in hospital bed with right hand elevated on pillows. Breathing comfortably on room air. 2+ right radial pulse. Regular rate and rhythm. Right ring finger: Operative dressing and small wick removed. No purulence. About 1 cm wound from abscess site with surrounding ulnar slightly improved cellulitis. Locally tender about surgical site abscess. Demonstrates reasonable flexion extension limited by swelling and discomfort. No tenderness proximally along the flexor tendon. Near full motion at the MCP J. Limited motion mostly at the DIPJ. Sensation grossly intact to light touch throughout. Objective Last Vital Signs Temp 97.7 F 02/23/21 08:11 Pulse 92 H 02/23/21 08:11 Resp 17 02/23/21 08:11 BP 129/77 02/23/21 08:11 Pulse Ox 98 02/23/21 08:11 Laboratory Results - last 24 hr 04/30/21 04/30/21 06:33 06:33 WBC 8.65 RBC 4.37 Hgb 12.0 L Hct 37.0 L MCV 84.7 MCH 27.5 MCHC 32.4 RDW 13.5 Plt Count 288 MPV 9.2 Immature Gran % 0.1 Neutrophils % 60.5 Lymphocytes % 23.9 Monocytes % 10.4 Eosinophils % 4.5 Basophils % 0.6 Nucleated RBC % 0 Absolute Neutrophils 5.23 Absolute Lymphocytes 2.07 Absolute Monocytes 0.90 H Absolute Eosinophils 0.39 Absolute Basophils 0.05 Sodium 142 Potassium 4.1 Chloride 109 H Carbon Dioxide 25.3 Anion Gap 7.7 BUN 21 H Creatinine 1.1 Estimated GFR/1.73 m2 >= 60.00 Glucose 66 L Calcium 8.7 Magnesium 1.9
[2021-02-23 15:46] VITALS: BP 116/74; PULSE 81; RESP 17; TEMP 37; O2SAT 98
--- NOTE | 2021-02-23 17:45 | PDOC.CMPRO ---
- If Service Date Differs Date of service: 02/23/21 Time of Service: 17:45 Care Management Progress Note S/O: Ervin was sitting up in bed when CM met with him. He appeared to be in good spirits and shared that he would likely be discharged tomorrow. he went to the OR yesterday for an I&D of his right ring finger which was abscessed. He stated that it is doing well and he feels that the swelling has decreased. He had a question about a continuous glucose monitor. Apparently he has one but does not have any more sensors and his insurance won't cover the cost. He met with Dilcia from [facility] who assured him that the hospital has some and that she would be able to provide him with same. He will contact her after discharge. In the meantime he has a standard glucometer and test strips with which to check his blood sugars. A:Ervin is a 55 year old man admitted on 02/21/21 with an abscess of his finger P:Ervin will be discharged home with no new services. He will follow up with his PCP and discharge plan of care. He will also follow up with [facility] andl transport via private vehicle with his . CM will continue to support Ervin and his discharge needs.
[2021-02-23] MEDS: Hydrogen Peroxide 3% 480 ML BTL TP (20:15)
[2021-02-23] MEDS: Insulin Glargine 300 UNITS/3 ML PEN SC (22:27)
[2021-02-23 23:25] VITALS: BP 113/72; PULSE 82; RESP 16; TEMP 37; O2SAT 98
[2021-02-23 23:43] LABS: Vancomycin, Trough 25.4 ug/mL (10.0-20.0)
[2021-02-24 06:53] LABS: Abs Immature Grans 0.01 10^3/uL (0.0-0.06); Absolute Basophil Count 0.05 10^3/uL (0.0-0.2); Absolute Eosinophil Count 0.43 10^3/uL (0.0-0.7); Absolute Lymphocyte Count 1.84 10^3/uL (1.2-3.4); Absolute Monocyte Count 0.68 10^3/uL (0.1-0.8); Absolute Neutrophil Count 3.04 10^3/uL (1.2-6.7); Basophils % 0.8; Eosinophils % 7.1; HCT 39.3 % (40.0-50.0); HGB 12.9 g/dL (13.5-17.5); Immature Grans % 0.2; Lymphocytes % 30.4; MCH 27.2 pg (27.0-33.0); MCHC 32.8 % (32.0-36.0); MCV 82.9 fL (80-95); MPV 9.2 fL (8.0-11.0); Monocytes % 11.2; Neutrophils % 50.3; Nucleated RBC 0 %; Platelet Count 335 10^3/uL (130-400); RBC 4.74 10^6/uL (4.36-5.78); RDW 13.4 % (11.8-14.1); WBC 6.05 10^3/uL (4.4-10.8)
[2021-02-24 07:09] LABS: Anion Gap 10.7 mmol/L (3-11); BUN 25 mg/dL (7-18); C-Reactive Protein 2.97 mg/dL (0.0-0.3); CO2 24.3 mmol/L (21.0-32.0); CREATININE 1.2 mg/dL (0.70-1.30); Calcium 9.4 mg/dL (8.5-10.1); Chloride 105 mmol/L (98-107); Glucose 195 mg/dL (74-106); Potassium 4.5 mmol/L (3.5-5.1); Sodium 140 mmol/L (136-145)
[2021-02-24] MEDS: VANCOMYCIN/WATER (PEG) 1 GM/200 ML BAG IV (07:48)
[2021-02-24] MEDS: Insulin Aspart 300 UNITS/3 ML PEN SC (07:48)
[2021-02-24] MEDS: Omeprazole 20 MG CAPCR PO (07:49)
[2021-02-24] MEDS: Hydrogen Peroxide 3% 480 ML BTL TP (07:49)
[2021-02-24] MEDS: Ascorbic Acid 500 MG TAB PO (07:49)
[2021-02-24] MEDS: Glucosamine/Chondroitin CAP 2 CAP PO (07:49)
[2021-02-24] MEDS: Normal Saline Flush 10 ML SYR IVP (08:04)
[2021-02-24 08:07] VITALS: BP 113/77; PULSE 89; RESP 16; TEMP 36.1; O2SAT 95
--- NOTE | 2021-02-24 08:29 | PDOC.CMDIS ---
LACE Index Scoring Tool - Questions: Length of Stay (in days): 3 Acuity (Admit via E.D.?): Yes Comorbidities: Diabetes w/o Complication E.D. Visits: 2 - Answers: Total Score: 9 Risk of Readmission: Low Risk Care Management Discharge Reason for Hospitalization: Sepsis Discharge Plan: Ervin will be discharged home with no new services. He will follow up with his PCP and discharge plan of care. He will also follow up with [facility] (CG[facility] supplies) and transport via private vehicle with his . Patient/Family Education Needs: Review discharge instructions, discuss Ask Me Three.
--- NOTE | 2021-02-24 09:26 | W.PM.DS.N ---
Date of service: 02/24/21 Time of Service: 09:26 DS: Diagnosis Discharge Diagnosis (1) Abscess of right ring finger: Start date: 02/24/21 Start time: 09:26 Status: Acute Asessment and Plan: POD 2 from I/D. On admission he was slightly tachy with t max temp 37.8. Taken to OR and abscess drained. Pus cultured revealing MRSA. He has had positive MRSA in the past in a wound on the face sensitive to linezolid. Sensitive to linezolid this admission as well as cirproflaxicin/bactrim. He received vanco during admission, being discharged home on linezolid 7 days. Repeat cbc, crp in 5 days and follow up with PCP in 1 week. will also add muprocin to wound 2-3 times a day for 7 days. Wound with little erythema small amount purulent drainage. (2) Cellulitis of right ring finger: Start date: 02/24/21 Start time: 09:45 Status: Acute Asessment and Plan: as above discussed with Dr. Magdaleno Discharge Plan Disposition Patient Disposition: HOME Condition: Improving Discharge Details Reason For Visit: SEPSIS DUE TO CELLULITIS R FINGER AND POSSIBLE ABS Admit Date/Time: 02/21/21 19:52 Admit Provider: Honey Lopez Attending Provider: Honey Lopez Primary Care Provider: Maciej Szymanski Hospital Course Hospital Course: Mr Helms is a 55 year old male with PMHx of psoriasis and psoriatic arthritis, on embrel, as well as IDDM2, GERD, and petic ulcer disease, who presented to [facility] ED on 02/21/21 after a visit there on 02/20/21 with worsening redness/swelling of his right ring finger despite being initiated on augmentin and clindamycin on the first visit. Patient stated symptoms had begun 3-4 days prior to admission. He was admitted to /s with telemetry for elevated HR. Labs in ED revealed wbc 16.35 elevated bun which appears baseline and hypoglycemia. He was taken to OR day of admission for I/D of his finger. He is doing well POD 2 with CRP improving from 5.39 on admission to 2.97. No wbc. Afebrile since day of admission. He has been afebrile since the day of admission. Ceftriaxone was dcd yesterday. Wound culture grew MRSA sensitive to linezolid/cipro/bactrim he received 3 days vanco, he is being discharged home on linezolid x 7 days with mupirocin topical 3 times a day for 7 days. He will need repeat cbc and crp in 5 days with f/u to PCP in 1 week. He denies CP, SOB, N/V/D. He did have a few hypoglycemic events while inpatient. He met with dietary to switch to wesly CGM. Home Meds and New Rx's Prescriptions: New linezolid 600 mg tablet 600 mg PO BID Qty: 7 RF: 0 mupirocin [Centany] 2 % ointment 1 applic topical TID Qty: 22 RF: 0 Bio-K plus 50 billion cell Capsule,Delayed Release(Dr/Ec) 1 cap PO DAILY Qty: 30 RF: 0 oxycodone-acetaminophen [Percocet] 5-325 mg tablet 1 tab PO Q6H PRNQty: 20 RF: 0 Continued insulin aspart U-100 [Novolog Flexpen U-100 Insulin] 100 unit/mL (3 mL) insulin pen 5 unit subcut AC RF: 0 loratadine 10 MG tablet 10 mg PO DAILY PRN RF: 0 TEST STRIPS 1 EACH strip 1 ea Miscellaneous BID Qty: 180 RF: 4 omeprazole magnesium [Prilosec OTC] 20 MG tablet,delayed release (DR/EC) 1 tab PO BID Qty: 180 RF: 4 ascorbic acid (vitamin C) [Vitamin C] 500 MG tablet 1 tab PO DAILY RF: 0 fluticasone propionate 16 GM spray,suspension 1 - 2 spr NS DAILY PRNQty: 1 RF: 1 glucosam-chond [id number]-[id number] ac 1 EACH capsule 2 ea PO BID RF: 0 ENBREL SURECLICK 50 MG/1 ML PEN.INJCTR 50 mg SQ Weekly RF: 0 Jardiance 25 mg tablet 25 mg PO DAILY Qty: 90 RF: 3 metformin 1,000 mg tablet 1,000 mg PO BID Qty: 180 RF: 4 meloxicam 15 mg tablet 15 mg PO DAILY Qty: 60 RF: 1 glipizide 5 mg Tablet 5 mg PO HS RF: 0 glipizide 5 mg tablet 10 mg PO DAILY RF: 0 Lantus Solostar U-100 Insulin 100 unit/mL (3 mL) insulin pen 13 unit IM/SC BID RF: 0 Discontinued clindamycin HCl 150 mg capsule 450 mg PO TID 7 Days Qty: 63 RF: 0 amoxicillin-pot clavulanate [Augmentin] 875-125 mg tablet 1 tab PO BID Qty: 14 RF: 0 No Action (DME) BD Insulin Syringe 1 EACH syringe 1 ea Miscellaneous BID Qty: 200 RF: 3 (DME) FreeStyle Lite Strips strip 1 ea Miscellaneous TID Qty: 180 RF: 4 (DME) pen needle, diabetic [BD Ultra-Fine Estefanía Pen Needle] 32 gauge x 5/32 needle 1 ea Miscellaneous BID Qty: 200 RF: 3 (DME) pen needle, diabetic [Novofine 32] 32 gauge x 1/4 needle 1 ea Miscellaneous DAILY Qty: 90 RF: 3 (DME) pen needle, diabetic [ReliOn Pen [place]] 32 gauge x 5/32 needle See Rx Instructions .ROUTE .MEDSUPPLY Qty: 100 RF: 3 Discharge Instructions Instructions: Mupirocin (On the skin), Linezolid (By mouth), MRSA (Methicillin-Resistant Staphylococcus Aureus) (DC), Cellulitis (DC), Hypoglycemia in a Person with Diabetes (DC) Additional Instructions: Take percocet for pain as needed every 6 hours Apply mupirocin three times a day after washing hands and keep dry and clean for 7 days Repeat lab work in 5 days Follow up with PCP in 1 week Stand Alone Forms: Nursing Discharge Form Referrals: Maciej Szymanski, [Primary Care Provider] - (Please call Friday to make a follow up appointment for 1 week. ) Activity:: Activity as Tolerated Equipment/Supplies:: No Equipment Needed Diet:: Carb Counting Discharge Orders Discharge Orders: Discharge Order (Routine); Ordered 02/24/21 Ordered By: Jacqueline Fields DS: Summary Time Spent with Patient providing and/or coordinating discharge services: Less than 30 minutes (approx 30 min) Status at Discharge Functional status at discharge: independent ambulation Overall status at discharge: patient is progressing back to baseline Mental Status: mental status grossly normal Speech and Movement: speech and movement normal Mood: congruent mood Affect: normal affect Exam Narrative Exam Narrative: General: pleasant middle-aged male,sleeping in bed awakes easily, AAOx3 comfortable Neuro: no focal deficits Psych: appropriate speech pattern/content SKin: 4th digit RUE with little erythema, purulent drainage. Tender to touch. Overall improved. HEENT: Atraumatic, normocephalic, EOMI, dry MM, clear oropharynx, no submandibular or cervical lymphadenopathy, no goiter or JVD Heart: RRR, no m/r/g, not tachycardic Lungs: CTAB GI: soft, nontender, nondistended Extremities: no edema BLE's, see skin exam above. 1+ pedal pulses B; no clubbing or cyanosis Psych Mental Status: mental status grossly normal Speech and Movement: speech and movement normal Mood: congruent mood Affect: normal affect DS: Data Vitals/I&O Vitals and I&O: Vital Signs Temperature 36.1 C L 02/24/21 08:07 Temperature Source Tympanic 02/24/21 08:07 Pulse 89 02/24/21 08:07 Pulse Rhythm Regular 02/24/21 04:04 Respiratory Rate 16 02/24/21 08:07 Respiratory Effort Non-Labored 02/24/21 04:04 Respiratory Depth Normal 02/24/21 04:04 Respiratory Pattern Normal 02/24/21 04:04 Blood Pressure 113/77 02/24/21 08:07 Blood Pressure Position Sitting 02/21/21 16:41 Pulse Oximetry 95 02/24/21 08:07 Oxygen Delivery Method Room Air 02/24/21 08:07 Oxygen Flow Rate 0 02/24/21 08:07 Pain Level 0 02/24/21 08:07 Comment 02/23/21 03:55 Intake & Output 02/23/21 02/23/21 02/24/21 11:59 23:59 11:59 Intake Total 1180 / 2120 940 / 2120 250 / 250 Output Total 400 / 400 Balance 780 / 1720 940 / 1720 250 / 250 Weight 62.5 kg 57.7 kg Intake: IV 220 / 420 200 / 420 Oral 960 / 1700 740 / 1700 250 / 250 Output: Urine 400 / 400 Other: Urine Color Yellow Yellow Urine Appearance Clear Clear Clear Urine Odor Normal Normal Comment voiding independently. Voiding Methods Urinal Toilet Data Completed and Pending Completed studies during hospitalization [Text1]: Exam(s) a RAD:XR finger RT ring EXAM: XR FINGER RT RING CLINICAL HISTORY: redness and swelling. TECHNIQUE: 2D digital imaging was performed. COMPARISON: CR,XR XR FINGER RT MIDDLE from 03/22/2020 FINDINGS: There is some soft tissue swelling around the PIP joint but no fracture or dislocation. No abnormal soft tissue densities in the 4th-ring finger. No osseous lesions. No radiographic evidence of osteomyelitis IMPRESSION: No significant radiographic findings. Exam(s) PROCEDURE INFORMATION: Exam: XR Right Finger(s) Exam date and time: 02/20/2021 11:46 PM Age: 55 years old Clinical indication: Fingers and other: Redness and swelling RT ring finger; Right TECHNIQUE: Imaging protocol: XR Right fingers. Views: Minimum 2 views. COMPARISON: CR XR FINGER RT MIDDLE 03/22/2020 5:10 PM FINDINGS: Bones/joints: Bones and joints are intact. Soft tissues: Focal soft tissue swelling about the proximal interphalangeal joint. No radiopaque foreign body or soft tissue gas. IMPRESSION: No significant abnormality. Exam(s) a RAD:XR portable chest AP EXAM: XR PORTABLE CHEST AP CLINICAL HISTORY: preop testing. TECHNIQUE: 2D digital imaging was performed. COMPARISON: CR CHEST 2 VIEWS PA,LAT from 08/23/2015 FINDINGS: Heart size is normal. The mediastinum is not widened. Adorno moreno is again noted. Thoracic scoliosis convex right again noted. Lungs are clear. No infiltrates. No pleural effusions. No pulmonary edema. No pneumothorax. IMPRESSION: No acute pulmonary findings on this single AP portable view of the chest. Scoliosis noted. Adorno moreno. Labs on day of discharge: Labs from last 24 hours 02/24/21 02/24/21 02/23/21 06:13 06:13 23:15 WBC 6.05 D RBC 4.74 Hgb 12.9 L Hct 39.3 L MCV 82.9 MCH 27.2 MCHC 32.8 RDW 13.4 Plt Count 335 MPV 9.2 Immature Gran % 0.2 Neutrophils % 50.3 Lymphocytes % 30.4 Monocytes % 11.2 Eosinophils % 7.1 Basophils % 0.8 Nucleated RBC % 0 Absolute Neutrophils 3.04 Absolute Lymphocytes 1.84 Absolute Monocytes 0.68 Absolute Eosinophils 0.43 Absolute Basophils 0.05 Sodium 140 Potassium 4.5 Chloride 105 Carbon Dioxide 24.3 Anion Gap 10.7 BUN 25 H Creatinine 1.2 Estimated GFR/1.73 m2 >= 60.00 Glucose 195 H D Calcium 9.4 C-Reactive Protein 2.97 H Vancomycin Trough 25.4 H* 02/22/21 12:30 Hand - Right Anaerobic Culture - Pending Preliminary micro results at discharge 02/22/21 12:30 Wound Culture - Preliminary Finger - Right Fourth Digit Staph aureus, MRSA 02/21/21 17:29 Blood Culture - Preliminary Blood NO GROWTH 48 HOURS 02/21/21 17:09 Blood Culture - Preliminary Blood NO GROWTH 48 HOURS 02/22/21 12:30 Anaerobic Culture - Pending Hand - Right PFSH Medical History Anemia (08/18/15) iron deficiency extensive GI workup. Seen Heme at [facility] [place]. idiopathic but perhaps occult GI bleed Arthritis (10/02/12) PSORIATIC Huang esophagus Cataract O.D. Gastroesophageal reflux disease with esophagitis (08/09/15) Barretts esophagus Gout (08/26/12) History of tobacco use Idiopathic scoliosis Adorno Moreno placed at age 15; chest deformity; likely restrictive lung disease Insulin dependent type 2 diabetes mellitus, uncontrolled Male infertility Osteoporosis (08/18/15) Peptic reflux disease Psoriasis Psoriatic arthritis (10/02/12) Weight loss Surgical History EGD - MAC EGD/COLO (08/09/15) MICHAEL MATTHEWS Extraction of cataract (~2009) spinal canal structure surgery adorno moreno placed age 15 Family History Mother , age 62 Breast cancer Father , age 65 COPD (chronic obstructive pulmonary disease) Brother No problems noted. Maternal Grandfather Myocardial infarction Paternal Grandfather Myocardial infarction Maternal Grandmother No problems noted. Paternal Grandmother Myocardial infarction Brother No problems noted. Brother No problems noted. Brother No problems noted. Son Adopted Daughter Adopted Social History Smoking/Tobacco Use Status: Former Tobacco Use Smoking risk assessment performed?: Yes Alcohol Intake: former Drug use: Never Substance use type: does not use Caregiver/Support person: No Household members: spouse Housing: apartment Communication Needs: None current occupation: [employer] Pets and animals: No Sexually active: Yes Do you think of yourself as: straight/heterosexual Current gender identity: female What is your relationship status?: How often do you talk on the phone with friends or family?: three or more times per week How often do you get together with friends or relatives?: three or more times per week How often do you attend synagogue or mandaen services?: decline to answer Do you belong to any clubs or organized social groups?: yes Panel score (0-1 are the most socially isolated patients): 3 What type of physical activity do you participate in: decline to answer Duration: decline to answer Frequency: decline to answer Sandrita/Hindu: None Special sandrita needs: No Seatbelt use: always Helmet use: No Drive intox or ride w/intox drivers' cash clerk: No Do you feel safe at home: Yes Do you feel safe in your relationship?: Yes
--- NOTE | 2021-02-26 13:58 | W.DIABETESNO ---
Date of service: 02/26/21 Time of Service: 13:58 Diabetes Note NOTE: Met with Ervin in outpatient diabetes office. Ervin was recently discharged from [facility] for inpatient treatment for inspected finger with PMH: poorly controlled DM. Ervin would like another Libre2 sensor placed today. Wesdarshan has followed up with [employer] to provide sensors in future. He has a reader from previous provider at [facility] [place]. Ervin reports that he takes 13 u lantus AM, 12 u lantus PM, 1000 mg metformin and 25 mg jardiance daily, along with SS novolog at meals. He reports that last night his BS was 500 mg/dl before dinner. He took 3 units novolog and got it down to 320 mg/dl. When questioned why he didn't take more insulin, he responded that he was concerned about getting too low. Provided education on how to use Chepe 2 system to set alarms to be able to avoid hypoglycemic events. Education also included how to meet caloric intake to maintain body weight without including excess carbohydrates. Session today was education on how to place a Libre2 sensor and set alarms. Follow up is scheduled for 03/02/21 at 11:30 for down load. Will fax download to PCP for medication adjustment if values are above ideal range. Instructed Ervin to follow up with PCP re: BS > 350 mg/dl and provided education on how to manage hyperglycemia, when to call PCP, when to go to ER. Time Spent in Nutritional Counseling and Treatment: 20
== END 2021-02-24 11:27 | disposition home or self-care (01) | DRG 872 ==
LOC: ER 20:25 → MS 20:28
PROVIDERS: Nurse Practitioner Family; Student in an Organized Health Care Education/Training Program; Admitting Provider Internal Medicine; Emergency Provider Physician Assistant; PCP Emergency Medicine; Visit Provider Internal Medicine
PROC: 0H9FXZZ Drainage of Right Hand Skin, External Approach (ICD-10-PCS; CPT 26010; principal; 2021-02-22 12:00)
DX: A41.9 Sepsis, unspecified organism (principal); L02.511 Cutaneous abscess of right hand; L03.011 Cellulitis of right finger; E11.65 Type 2 diabetes mellitus with hyperglycemia; D50.9 Iron deficiency anemia, unspecified; L40.50 Arthropathic psoriasis, unspecified; K21.00 Gastro-esophageal reflux disease with esophagitis, without bleeding; M10.9 Gout, unspecified; E11.649 Type 2 diabetes mellitus with hypoglycemia without coma; Z20.822 Contact with and (suspected) exposure to COVID-19; Z79.4 Long term (current) use of insulin; Z87.891 Personal history of nicotine dependence
CPT/HCPCS: 26010; 36415; 80048; 80053; 85652; 86141; 87040; 87077; 87635; 93005; 96365; 96367; 96375; 99285; 71045; 80202; 83605; 83735; 84443; 85025; 85610; 86140; 87070; 87075; 87186; 87205; 93010; 99223; 99232; 99238; J0690; J0696; J1885; J2250; J2405; J2704; J7042

== ENCOUNTER 2021-03-02 00:33 | Outpatient (CLI) | payer OTHER, SELFPAY ==
--- NOTE | 2021-03-02 14:00 | NS.NUTBLAN_ITS ---
Ervin returns for Medical Nutrition Therapy for diabtes self management education. Ervin has been wearing his Libre2 continuous glucose montior for last 5 days and came in for data analysis. Dm meds include: metformin 1000 mg BID, jardiance 25 mg qd, glipizide 10 mg AM, 5 mg pm, Novolog at meals (sliding scale before meals, reports taking 1 unit of > 200mg, takes 2 units if > 250 mg) , Lantus 13 units AM, 12 units PM. Total amount of times her takes insulin is 4- 5 times daily. Ambulatory Glucose Profile indicates average blood sugar 171 mg/dl. No nocturnal hypoglycemia notes, however hyperglycemia episodes: 21% in high range (181-250mg/dl), and 17% in very high range (>250mg/dl). Ervin has poor glycemic control at this time. Session today focused on carb counting and dosing of novolog prior to meals on sliding scale to maintain blood sugars in target range of 70-180 mg/dl. Ervin has a history of hypoglycemia and wieght loss. He is hesitant to take his novolog as prescribed at meals and has been eating large meals with large amounts of carbohydrate to help maintain his weight. Session today also focused on how to maintain caloric intake with foods that don't spike blood sugars such as lean protein, cheese, cottage cheese and non starchy vegetables. Plan: engineering writer will provide PCP with AGP report, engineering writer will call Ervin next week and follow up on progress. Instructed Ervin to call his PCP if blood sugars > 300 mg/dl.
== END 2021-03-02 00:34 | disposition home or self-care (01) ==
LOC: DS 00:33
PROVIDERS: PCP Emergency Medicine; Visit Provider Dietitian, Registered
DX: E11.65 Type 2 diabetes mellitus with hyperglycemia (principal); Z79.4 Long term (current) use of insulin; Z79.84 Long term (current) use of oral hypoglycemic drugs; Z71.3 Dietary counseling and surveillance
CPT/HCPCS: 97803

== ENCOUNTER 2021-04-04 02:43 | Outpatient (CLI) | payer OTHER, SELFPAY ==
[2021-04-04 12:37] LABS: Anion Gap 6.9 mmol/L (3-11); BUN 23 mg/dL (7-18); CO2 29.1 mmol/L (21.0-32.0); CREATININE 1.3 mg/dL (0.70-1.30); Calcium 9.2 mg/dL (8.5-10.1); Chloride 106 mmol/L (98-107); Estimated GFR 57.53 (mL/min/1.73m2); Glucose 110 mg/dL (74-106); Sodium 142 mmol/L (136-145)
== END 2021-04-04 02:44 | disposition home or self-care (01) ==
LOC: LBO 02:43
PROVIDERS: PCP Emergency Medicine; Visit Provider Emergency Medicine
DX: I10 Essential (primary) hypertension (principal); E11.65 Type 2 diabetes mellitus with hyperglycemia; Z79.4 Long term (current) use of insulin
CPT/HCPCS: 36415; 80048

== ENCOUNTER 2021-12-10 01:07 | Outpatient (CLI) | payer OTHER, SELFPAY ==
[2021-12-10 20:12] LABS: COVID-19 PCR Negative (Negative)
[2021-12-10 20:14] LABS: Source Nasal/Nares
== END 2021-12-10 01:08 | disposition home or self-care (01) ==
LOC: LBO 01:07
PROVIDERS: PCP Family Medicine; Visit Provider Surgery
DX: Z20.822 Contact with and (suspected) exposure to COVID-19 (principal); Z01.818 Encounter for other preprocedural examination
CPT/HCPCS: 87635

== ENCOUNTER 2021-12-12 07:42 | Day surgery (SDC) | payer OTHER, SELFPAY ==
--- NOTE | 2021-12-12 06:43 | W.PM.ENDDOP ---
Date of service: 12/12/21 Time of Service: 10:14 Endoscopy Report DATE OF PROCEDURE: 12/12/21 PRE-OP DIAGNOSIS: Huang's esophagus POST-OP DIAGNOSIS: same (gastric polyps) PROCEDURE: EGD with biopsies SURGEON: Barbara Steele ANESTHESIA TYPE: General:No Airway ESTIMATED BLOOD LOSS: 3 PATHOLOGY: other (Gastric polyp bx, GE junction bx) COMPLICATIONS: None DISPOSITION: same day INDICATIONS: Ervin is a pleasant 55-year-old gentleman who comes back to see me today to have another upper endoscopy for surveillance of his Huang's esophagitis.? The last time he had an EGD was in 2014.? He was noted to have Huang's again but without dysplasia.? He has done well over the last 5 years.? He is vaccinated for COVID but did have a breakthrough infection back in July.? He has recovered fully from that.? Because of his recent infection I will not test him for COVID prior to his procedure as this might come back positive.? I will make sure the OR and anesthesia are aware of this.? We discussed the procedure in detail as well as the risks and benefits.? He did well after his last EGD so I do not expect any issues. Risks, benefits and complications have been reviewed. Complications include but are not limited to bleeding, pain, perforation, sore throat, aspiration, and adverse reaction to the medications.? Questions were entertained and answered to their satisfaction and they wished to proceed. No guarantees were given or implied. Proceed with EGD under sedation FINDINGS: Gatsric polyps Barretts' esophagitis PROCEDURE DESCRIPTION: After informed consent was obtained the patient was take to the procedure room and placed in a supine position. Monitors were applied and a time out was done. The patients name, date of , procedure type, allergies to medications and metal in their body was reviewed. A bite block was placed and the patient was sedated. Once sedated and comfortable the gastroscope was advanced through the oropharynx which was grossly normal into the esophagus. The proximal and mid-esophagus were normal. In the distal esophagus there was inflammation and Huang's noted. The scope was advanced into the stomach and through the pylorus into the 3rd portion of the duodenum. The duodenum was noted to be normal. The scope was retracted back into the stomach and biopsies were done to rule out H. pylori. There were multiple benign appearing polyps. The scope was retroflexed. The cardia and fundus were noted to be normal. There was no hiatal hernia noted. The scope was retracted back into the esophagus and biopsies were done of the GE junction to rule out Huang's. The Z line was regular. The GE junction was at 40 cm. There were 2 areaas of Barretts measuring 1 cm in length. The scope was removed and the patient was woken up and taken back to [facility] in stable condition. Follow up: 2-3 years
--- NOTE | 2021-12-12 06:44 | W.PM.DSUDISC ---
Discharge Plan Disposition Patient Disposition: HOME Condition: Good Discharge Details Reason For Visit: EGD Attending Provider: Barbara Steele Primary Care Provider: Gus Ponce Home Meds and New Rx's Prescriptions: Continued Jardiance 25 mg tablet 25 mg PO DAILY Qty: 90 3RF insulin aspart U-100 [Novolog Flexpen U-100 Insulin] 100 unit/mL (3 mL) insulin pen 5 unit subcut AC Qty: 15 8RF triamcinolone acetonide 0.1 % ointment 1 applic topical BID PRN (Reason: dermatitis) Qty: 80 0RF loratadine 10 MG tablet 10 mg PO DAILY PRN 0RF TEST STRIPS 1 EACH strip 1 ea Miscellaneous BID Qty: 180 4RF Rx Instructions: Freestyle lite. Dx: 250.0 omeprazole magnesium [Prilosec OTC] 20 MG tablet,delayed release (DR/EC) 1 tab PO BID Qty: 180 4RF (DME) BD Insulin Syringe 1 EACH syringe 1 ea Miscellaneous BID Qty: 200 3RF Rx Instructions: DX: DM 250.01 BD INSULIN SYRINGE ascorbic acid (vitamin C) [Vitamin C] 500 MG tablet 1 tab PO DAILY 0RF fluticasone propionate 16 GM spray,suspension 1 - 2 spr NS DAILY PRNQty: 1 1RF Rx Instructions: for post nasal drip glucosam-chond [id number]-[id number] ac 1 EACH capsule 2 ea PO BID 0RF ENBREL SURECLICK 50 MG/1 ML PEN.INJCTR 50 mg SQ Weekly 0RF (DME) FreeStyle Chepe 2 Sensor Kit See Rx Instructions .ROUTE .MEDSUPPLY Qty: 2 12RF Rx Instructions: As directed mupirocin 2 % ointment 1 applic topical TID Qty: 22 0RF Rx Instructions: Using a Q-tip apply a small amount to each nostril three times a day. You may also apply this to any open wounds. (DME) pen needle, diabetic [ReliOn Pen [place]] 32 gauge x 5/32 needle See Rx Instructions .ROUTE .MEDSUPPLY Qty: 100 3RF Rx Instructions: inject daily (DME) pen needle, diabetic [Novofine 32] 32 gauge x 1/4 needle 1 ea Miscellaneous DAILY Qty: 90 3RF Rx Instructions: as needed. variable meloxicam 15 mg tablet 15 mg PO DAILY Qty: 60 1RF Hold Instructions: Home Medication placed on hold at Doctor's office Rx Instructions: instead of Aleve glipizide 5 mg tablet 10 mg PO DAILY AM Qty: 180 3RF Rx Instructions: 10 in am 5 in hs glipizide 5 mg tablet 5 mg PO HS Qty: 90 3RF metformin 1,000 mg tablet 1,000 mg PO BID Qty: 180 4RF Lantus Solostar U-100 Insulin 100 unit/mL (3 mL) insulin pen 13 unit IM/SC BID 0RF Rx Instructions: 13 U a.m., 12 units hs Discharge Instructions Additional Instructions: Findings: chronic stomach inflammation and Huang's Follow up: 2-3 years Please call if you develop: fevers >101.5 Nausea or Vomiting Abdominal pain that is not transient Rectal bleeding that is more then a tbsp A hard abdomen and inability to pass gas DAY SURGERY UNIT POST ENDOSCOPY INSTRUCTIONS Instructions for everyone who is given Anesthesia: For your safety, please do the following for the next 24 Hours: a. Do not drive or operate dangerous equipment b. Do not drink alcohol beverages or use any recreational drugs for the first 24 hours or while taking pain medications. The medications in your body may have a reaction that can be dangerous. c. Do not make any important decisions or sign any important papers 1. Generally there are no restrictions on your activity after a day or so has gone by, but you may feel a bit fatigued for a few days. 2. After you arrive home you may have a light meal and return to a normal diet as you can tolerate it without feeling sick to your stomach. 3. After surgery, you may feel pain or discomfort. This should be only transient, but if it persists please contact your doctor. 4. If there are any questions regarding the findings of your procedure, please feel free to contact your doctor. 6. If you are unable to contact your doctor with a problem, contact the hospital at [phone]. 7. Continue all your regular medications unless directed otherwise. I understand the above instructions and have no questions. Signature of Patient or Responsible Adult Escort Date/Time Name of Responsible Adult Escort Signature of Nurse Date/Time Activity:: Activity as Tolerated Diet:: As Tolerated Discharge Orders Discharge Orders: Discharge Order (Routine); Ordered 12/12/21 Ordered By: Barbara Steele
[2021-12-12 07:50] VITALS: BP 111/83; PULSE 89; RESP 17; TEMP 36.5; O2SAT 100
[2021-12-12] MEDS: Lactated Ringers 1,000 ML 80 ML IV (08:33)
--- NOTE | 2021-12-12 08:37 | W.ANESPRE ---
General Info Date of Service Date Performed: 12/12/21 Height: 5 ft 7 in Weight: 60.1 kg Body Mass Index (BMI): 20.7 Surgical Procedure: Operation Date: 12/12/21 10:05 Proposed Procedure Side Surgeon p Gastroscopy Michael Matthews MD Meds Allergies and Home Medications Allergies Allergy/AdvReac Type Severity Reaction Status Date / Time Sulfa (Sulfonamide AdvReac Intermediate NAUSEA Verified 12/12/21 08:07 Antibiotics) DUST Allergy Intermediate NASAL Uncoded 12/12/21 08:07 CONGESTION Home Medication Medication Instructions Recorded loratadine 10 mg tablet 10 mg PO DAILY PRN tab-cap 12/29/12 omeprazole magnesium 20 mg 1 tab PO BID #180 tab-cap 10/19/14 tablet,delayed release (Prilosec OTC) insulin syringe-needle U-100 1 mL #200 syringe 04/19/15 26 x 1/2 (BD Insulin Syringe) ascorbic acid (vitamin C) 500 mg 1 tab PO DAILY 06/02/15 tablet (Vitamin C) fluticasone propionate 50 1 - 2 spr NS DAILY PRN #1 bottle 10/15/15 mcg/actuation nasal spray,suspension skknazrsnz-hexdrravxj-mqlwyllk-hyalur 2 ea PO BID 09/30/17 ac 375 mg-300 mg-175 mg-2 mg cap Enbrel Sureclick 50 mg SQ Weekly 12/09/17 insulin glargine 100 unit/mL (3 13 unit IM/SC BID 02/20/21 mL) subcutaneous pen (Lantus Solostar U-100 Insulin) empagliflozin 25 mg tablet 25 mg PO DAILY #90 tab-cap 03/13/21 (Jardiance) insulin aspart U-100 100 unit/mL 5 unit (0.05 mL) SUBCUT AC #15 ml 03/13/21 (3 mL) subcutaneous pen (Novolog Flexpen U-100 Insulin aspart) flash glucose sensor (FreeStyle #2 ea 03/20/21 Chepe 2 Sensor) mupirocin 2 % topical ointment 1 applic TOPICAL TID #22 g 03/29/21 triamcinolone acetonide 0.1 % 1 applic TOPICAL BID PRN #80 g 05/15/21 topical ointment pen needle, diabetic 32 gauge x #90 unit 06/28/21 1/4 (Novofine 32) pen needle, diabetic 32 gauge x #100 each 06/28/2132 (ReliOn Pen Stanley) meloxicam 15 mg tablet 15 mg PO DAILY #60 tab-cap 10/01/21 glipizide 5 mg tablet 5 mg PO HS #90 tab 10/04/21 glipizide 5 mg tablet 10 mg PO DAILY AM #180 tab 10/04/21 metformin 1,000 mg tablet 1,000 mg PO BID #180 tab-cap 11/16/21 Current Visit Medications: Current Medications Generic Name Dose Route Start Last Admin Trade Name Freq PRN Reason Stop Dose Admin Hyoscyamine Sulfate 0.125 mg 12/12/21 06:44 Hyoscyamine 0.125 Mg Sl/Oral/Chew SL DIRECTED PRN Ringer's Solution 1,000 mls @ 80 mls/hr 12/12/21 06:00 12/12/21 08:33 IV 12/24/21 23:59 80 mls/hr INFUSION ELMO Administration IV Miscellaneous Supplies 1 each 12/12/21 06:00 Iv Access IV 12/24/21 23:59 DIRECTED ELMO Ondansetron HCl 4 mg 12/12/21 06:44 Ondansetron 4 Mg/2 Ml Vial IVP Q4H PRN PRN Nausea / Vomiting Sodium Chloride 0 ml 12/12/21 06:00 Normal Saline Flush 10 Ml Syr IV 12/24/21 23:59 PRN PRN Sodium Chloride 0 ml 12/12/21 06:00 Normal Saline 10 Ml Vial IJ 12/24/21 23:59 DIRECTED PRN Sterile Water 0 ml 12/12/21 06:00 Water,Injection,Sterile 10 Ml Vial IJ 12/24/21 23:59 DIRECTED PRN PFSH Active Problems Active Problems: Problem Status Onset Code Gastroesophageal reflux disease with esophagitis 08/09/15 K21.0 History of tobacco use Z87.891 Insulin dependent type 2 diabetes mellitus, uncontrolled E11.65, Z79.4 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 [place] [facility] [place] but perhaps occult GI bleed Arthritis (10/02/12) PSORIATIC Cataract O.D. Cellulitis of right ring finger (~02/20/21) COVID 08/16 breakthrough infection-Mild symptoms: coughing, sneezing, mild congestion DVT prophylaxis Gout (08/26/12) Hx of scoliosis Idiopathic scoliosis Adorno Moreno placed at age 15; chest deformity; likely restrictive lung disease Male infertility Osteoporosis (08/18/15) Peptic reflux disease Psoriasis Psoriatic arthritis (10/02/12) Right flank pain Stress reaction, emotional Umbilical pain Weight loss Surgical History Surgical History EGD - MAC EGD/COLO (08/09/15) MICHAEL MATTHEWS Extraction of cataract (~2009) History of cataract removal with insertion of prosthetic lens spinal canal structure surgery adorno moreno placed age 15 Tobacco Smoking/Tobacco Use Status: Former Tobacco Use Passive smoking exposure: Yes Alcohol Alcohol Intake: former Substance Use Substance use: Never Substance use type: does not use Vital Signs and Lab Results Vital Signs Most Recent Vital Signs in EMR: Most Recent Vital Signs Temp Pulse Resp BP Pulse Ox 36.5 C 89 17 111/83 100 12/12/21 07:50 12/12/21 07:50 12/12/21 07:50 12/12/21 07:50 12/12/21 07:50 Lab Results Blood Type / Crossmatch: No Data to Display Complete Blood Count: No Data to Display Complete Metabolic Panel: No Data to Display Liver Function Panel: No Data to Display Coagulation Panel: No Data to Display Cardiac Panel: No Data to Display Arterial Blood Gas: No Data to Display Venous Blood Gas: No Data to Display Pancreas Panel: No Data to Display Thyroid Panel: No Data to Display Infectious Disease: Coronavirus (COVID-19)(PCR) Negative (Negative) 12/10/21 09:23 12/10/21 Coronavirus 2019 Source Nasal/Nares 12/10/21 09:23 12/10/21 Blood Cultures: No Data to Display Toxicology Panel: No Data to Display Anesthesia Assessment and Plan Anesthesia History Personal History: No History of Anesthesia Complications Family History: No Family History of Anesthesia Complications Exercise Tolerance Exercise Tolerance: Metabolic Equivalents>4 Cardiac & Pulmonary Exam Cardiac Exam: Normal S1/S2 Heart Sounds Pulmonary Exam: Clear Bilateral Breath Sounds Implantable Cardiac Device Does patient have a Pacemaker or an ICD?: No Airway Exam Known Difficult Airway: No Mallampati Class: 2 Mouth Opening: Normal (> 3cm) Thyromental Distance: Greater than 3 cm Neck Range of Motion: Full ROM Neck Circumference: Normal Teeth Condition: Normal Dentition ASA Classification ASA Score: ASA 3 Emergency Case?: No NPO Status NPO Status: NPO Clears >2 hours, Solids >8 hours Anesthesia Plan Resuscitation Status: Full Code Anesthesia Technique: General Anesthesia Airway Planned: Natural Airway Monitors Used: Standard Monitors Preoperative Comments:: 55 yo male for EGD for barretts. Sig PMHx: GERD/barretts (omeprozole), DM2 (jardiance, glipizide, insulin aspart, lantus, bs 219 today, last a1c he states as 8 bernard) [place] [facility] [place] prop total, no issues.
[2021-12-12 09:28] VITALS: BMI 20.7
--- NOTE | 2021-12-12 09:57 | ESO_PTH ---
PATIENT: Ervin Helms LOC: [facility] U#:[id number] AGE/SX: 55/M ROOM: RE12/12/[address]: Barbara Steele MD : [id number] BED: DIS: 12/12/2021 SPEC #: [id number] RECD: 12/12/21 12:54 STATUS: AMOL RE #: [id number] SUGEY: 12/12/21 09:[address]: Barbara Steele DEPT: Surgical Specimen RECD BY: Karen Santiago ENTERED: 12/12/21 12:54 SP TYPE: Eso KIERA DR: Gus Ponce Tissues: 1 - STOMACH BIOPSY 2 - ESOPHAGUS BIOPSY Procedures: GROSS AND MICRO LEVEL 4 Comments: [id number]
[2021-12-12 10:10] VITALS: BP 115/75; PULSE 92; RESP 16; TEMP 36.2; O2SAT 96
[2021-12-12 10:35] VITALS: BP 116/91; PULSE 90; RESP 16; TEMP 36.2; O2SAT 98
--- NOTE | 2021-12-12 11:47 | W.ANESPOSTOP ---
Postoperative Evaluation Date, Time and Location Date Performed: 12/12/21 Time Performed: 10:40 Patient Location: Day Surgery Unit Vital Signs Most Recent Imported Vital Signs: Most Recent Vital Signs Temp Pulse Resp BP Pulse Ox 36.2 C L 90 16 116/91 H 98 12/12/21 10:35 12/12/21 10:35 12/12/21 10:35 12/12/21 10:35 12/12/21 10:35 Pain Score Most Recent Pain Score: Most Recent Pain Score Pain Level 0 12/12/21 10:35 Assessment Mental Status: Awake (Alert & Oriented to Patient Baseline) Airway and Respiratory Function: Patent airway with normal (patient baseline) respiratory exam Cardiovascular Function: Hemodynamically Stable Hydration Status: Adequately Hydrated Nausea & Vomiting: No Nausea or Vomiting Pain: Pt. Denies Any Pain Peripheral Nerve Block: Patient did not receive a nerve block
== END 2021-12-12 11:08 | disposition home or self-care (01) ==
LOC: SUR 07:42
PROVIDERS: PCP Family Medicine; Visit Provider Surgery
PROC: 0DJ68ZZ Inspection of Stomach, Via Natural or Artificial Opening Endoscopic (ICD-10-PCS; CPT 43235; principal; 2021-12-12 10:00)
DX: K22.70 Barrett's esophagus without dysplasia (principal); K31.7 Polyp of stomach and duodenum; E11.9 Type 2 diabetes mellitus without complications; Z79.4 Long term (current) use of insulin
CPT/HCPCS: 43239; 88305

== ENCOUNTER 2021-12-23 11:26 | Emergency (ER) | payer OTHER, SELFPAY ==
--- NOTE | 2021-12-23 11:34 | W.ED.GENAD ---
Discharge Plan Disposition Patient Disposition: HOME Condition: Stable Discharge Details Clinical Impression: Cellulitis of finger of right hand Primary Care Provider: Gus Ponce ED Provider: Nicolle Brown Home Meds and New Rx's Prescriptions: New levofloxacin 750 mg tablet 750 mg PO DAILY 6 Days Qty: 6 0RF Continued Jardiance 25 mg tablet 25 mg PO DAILY Qty: 90 3RF insulin aspart U-100 [Novolog Flexpen U-100 Insulin] 100 unit/mL (3 mL) insulin pen 5 unit subcut AC Qty: 15 8RF triamcinolone acetonide 0.1 % ointment 1 applic topical BID PRN (Reason: dermatitis) Qty: 80 0RF loratadine 10 MG tablet 10 mg PO DAILY PRN 0RF TEST STRIPS 1 EACH strip 1 ea Miscellaneous BID Qty: 180 4RF Rx Instructions: Freestyle lite. Dx: 250.0 omeprazole magnesium [Prilosec OTC] 20 MG tablet,delayed release (DR/EC) 1 tab PO BID Qty: 180 4RF (DME) BD Insulin Syringe 1 EACH syringe 1 ea Miscellaneous BID Qty: 200 3RF Rx Instructions: DX: DM 250.01 BD INSULIN SYRINGE ascorbic acid (vitamin C) [Vitamin C] 500 MG tablet 1 tab PO DAILY 0RF fluticasone propionate 16 GM spray,suspension 1 - 2 spr NS DAILY PRNQty: 1 1RF Rx Instructions: for post nasal drip glucosam-chond kg-jvvjei-yk ac 1 EACH capsule 2 ea PO BID 0RF ENBREL SURECLICK 50 MG/1 ML PEN.INJCTR 50 mg SQ Weekly 0RF (DME) FreeStyle Chepe 2 Sensor Kit See Rx Instructions .ROUTE .MEDSUPPLY Qty: 2 12RF Rx Instructions: As directed mupirocin 2 % ointment 1 applic topical TID Qty: 22 0RF Rx Instructions: Using a Q-tip apply a small amount to each nostril three times a day. You may also apply this to any open wounds. (DME) pen needle, diabetic [Novofine 32] 32 gauge x 1/4 needle 1 ea Miscellaneous DAILY Qty: 90 3RF Rx Instructions: as needed. variable meloxicam 15 mg tablet 15 mg PO DAILY Qty: 60 1RF Hold Instructions: Home Medication placed on hold at Doctor's office Rx Instructions: instead of Aleve glipizide 5 mg tablet 10 mg PO DAILY AM Qty: 180 3RF Rx Instructions: 10 in am 5 in hs glipizide 5 mg tablet 5 mg PO HS Qty: 90 3RF metformin 1,000 mg tablet 1,000 mg PO BID Qty: 180 4RF Lantus Solostar U-100 Insulin 100 unit/mL (3 mL) insulin pen 13 unit IM/SC BID 0RF Rx Instructions: 13 U a.m., 12 units hs No Action (DME) pen needle, diabetic 32 gauge x 5/32 needle See Rx Instructions .ROUTE .COMPLEX Qty: 100 0RF Dose Instruction: USE ONCE DAILY Rx Instructions: USE ONCE DAILY Discharge Instructions Instructions: Cellulitis (ED) Additional Instructions: Your lab work and imaging today is reassuring and shows no evidence of acute significant or concerning findings. Your exam today is consistent with an infection of your finger. A prescription for the antibiotic Levaquin has been sent electronically to [facility] in [place]. You were given a dose of this antibiotic here today. Your next dose of antibiotics is tomorrow. Call the orthopedics office in the next 3 to 4 days for follow-up. Return immediately to the emergency department if you develop any worsening or new concerning symptoms. Referrals: Rafa Chow MD [ [facility] STAFF PHYSICIAN] - Discharge Data Discharge Date/Time-TO BE ENTERED AT DEPARTURE: 12/23/21 13:43 Discharge Physician: Nicolle Brown Medical Decision Making 54-year-old male with a history of insulin-dependent type 2 diabetes, history of right 4th finger abscess and cellulitis treated with irrigation and debridement by orthopedics and treated with IV antibiotics in January 2021 presents with concern for right second finger infection. Heart rate elevated on arrival, now within normal limits. He is afebrile and appears nontoxic. He has what appears to be a right second finger cellulitis but no evidence of abscess clinically no signs of flexor tenosynovitis. Will refer for imaging and right hand x-ray. Clinically this point time, it may be reasonable to start with oral antibiotics and attempt outpatient treatment. A dose of Augmentin and clindamycin ordered. Labs and imaging reviewed. White blood cell count 8. ESR normal at 13. CRP minimally elevated at 1.41. X-ray reviewed and unremarkable. Case discussed with Dr. Chow who recommends Levaquin 750 for 7 days with plan for follow-up in the orthopedic office this week. Usual and customary return precautions given prior to discharge. Medical Records Medical records reviewed: Yes I reviewed the patient's medical records. Imaging Data Radiologic Study: Radiologist's impression: XR Right Hand Exam date and time: 12/23/2021 12:09 PM Age: 55 years old Clinical indication: Fingers; Right; Patient HX: Swelling index finger - unknown origin TECHNIQUE: Imaging protocol: XR Right hand. Views: 3 or more views. COMPARISON: CR XR FINGER RT RING 02/20/2021 11:39 PM FINDINGS: Bones/joints: Normal. Soft tissues: Normal. Other findings: There is no evidence of acute fracture.There is no evidence of malalignment or dislocation. IMPRESSION: There is no evidence of acute fracture.There is no evidence of malalignment or dislocation. Lab Data Lab results reviewed: Yes I reviewed the patient's lab results. Labs: Laboratory Tests Range/Units 12/23/21 12/23/21 12/23/21 12:27 12:27 12:27 WBC (4.4-10.8) 10^3/uL 8.65 RBC (4.36-5.78) 10^6/uL 4.95 Hgb (13.5-17.5) g/dL 13.0 L Hct (40.0-50.0) % 40.7 MCV (80-95) fL 82.2 MCH (27.0-33.0) pg 26.3 L MCHC (32.0-36.0) % 31.9 L RDW (11.8-14.1) % 13.4 Plt Count (130-400) 10^3/uL 377 MPV (8.0-11.0) fL 8.9 Immature Gran % 0.2 Neutrophils % 65.6 Lymphocytes % 20.5 Monocytes % 11.4 Eosinophils % 1.5 Basophils % 0.8 Nucleated RBC % % 0 Absolute Neutrophils (1.2-6.7) 10^3/uL 5.67 Absolute Lymphocytes (1.2-3.4) 10^3/uL 1.77 Absolute Monocytes (0.1-0.8) 10^3/uL 0.99 H Absolute Eosinophils (0.0-0.7) 10^3/uL 0.13 Absolute Basophils (0.0-0.2) 10^3/uL 0.07 ESR (0-20) mm/hr 13 Sodium (136-145) mmol/L 137 Potassium (3.5-5.1) mmol/L 4.7 Chloride (98-107) mmol/L 101 Carbon Dioxide (21.0-32.0) mmol/L 27.6 Anion Gap (3-11) mmol/L 8.4 BUN (7-18) mg/dL 20 H Creatinine (0.70-1.30) mg/dL 1.3 Estimated GFR/1.73 m2 (mL/min/1.73m2) 57.53 Glucose (74-106) mg/dL 198 H Calcium (8.5-10.1) mg/dL 9.3 Total Bilirubin (0.2-1.0) mg/dL 0.3 AST (15-37) U/L 13 L ALT (16-63) U/L 23 Alkaline Phosphatase (46-116) U/L 136 H C-Reactive Protein (0.0-0.3) mg/dL 1.41 H Total Protein (6.4-8.2) g/dL 8.0 Albumin (3.4-5.0) g/dL 4.0 HPI General Mode of arrival: ambulatory. Date/Time Provider Initiated Documentation: 12/23/21 11:32. Limitations to Documentation: no limitations. Information obtained by: patient. HPI Narrative: Patient is a 54-year-old male with a history of insulin-dependent type 2 diabetes, history of right 4th finger abscess and cellulitis treated with irrigation and debridement by orthopedics and treated with IV antibiotics in January 2021 presents with concern for finger infection. Patient states he noted right second finger redness, swelling and pain over the past few days. He states the symptoms are becoming worse so he came here for evaluation. He denies any known fever, injury and does not recall potential embedded foreign body. Patient is right-handed. Related Data Home Medications Medication Instructions Recorded Confirmed loratadine 10 mg tablet 10 mg PO DAILY PRN tab-cap 12/29/12 12/24/21 omeprazole magnesium 20 mg 1 tab PO BID #180 tab-cap 10/19/14 12/24/21 tablet,delayed release (Prilosec OTC) insulin syringe-needle U-100 1 mL #200 syringe 04/19/15 12/24/21 26 x 1/2 (BD Insulin Syringe) ascorbic acid (vitamin C) 500 mg 1 tab PO DAILY 06/02/15 12/24/21 tablet (Vitamin C) fluticasone propionate 50 1 - 2 spr NS DAILY PRN #1 bottle 10/15/15 12/24/21 mcg/actuation nasal spray,suspension csylprdouh-iwksnuxbdb-yriddagk-hyalur 2 ea PO BID 09/30/17 12/24/21 ac 375 mg-300 mg-175 mg-2 mg cap Enbrel Sureclick 50 mg SQ Weekly 12/09/17 12/24/21 insulin glargine 100 unit/mL (3 13 unit IM/SC BID 02/20/21 12/24/21 mL) subcutaneous pen (Lantus Solostar U-100 Insulin) empagliflozin 25 mg tablet 25 mg PO DAILY #90 tab-cap 03/13/21 12/24/21 (Jardiance) insulin aspart U-100 100 unit/mL 5 unit (0.05 mL) SUBCUT AC #15 ml 03/13/21 12/24/21 (3 mL) subcutaneous pen (Novolog Flexpen U-100 Insulin aspart) flash glucose sensor (FreeStyle #2 ea 03/20/21 12/24/21 Chepe 2 Sensor) mupirocin 2 % topical ointment 1 applic TOPICAL TID #22 g 03/29/21 12/24/21 triamcinolone acetonide 0.1 % 1 applic TOPICAL BID PRN #80 g 05/15/21 12/24/21 topical ointment pen needle, diabetic 32 gauge x #90 unit 06/28/21 12/24/21 1/ (Novofine 32) meloxicam 15 mg tablet 15 mg PO DAILY #60 tab-cap 10/01/21 12/24/21 glipizide 5 mg tablet 5 mg PO HS #90 tab 10/04/21 12/24/21 glipizide 5 mg tablet 10 mg PO DAILY AM #180 tab 10/04/21 12/24/21 metformin 1,000 mg tablet 1,000 mg PO BID #180 tab-cap 11/16/21 12/24/21 levofloxacin 750 mg tablet 750 mg PO DAILY 6 Days #6 tab 12/23/21 12/24/21 pen needle, diabetic 32 gauge x #100 ea 12/26/21 Previous Rx's Medication Instructions Recorded empagliflozin 25 mg tablet 25 mg PO DAILY #90 tab-cap 03/13/21 (Jardiance) insulin aspart U-100 100 unit/mL 5 unit (0.05 mL) SUBCUT AC #15 ml 03/13/21 (3 mL) subcutaneous pen (Novolog Flexpen U-100 Insulin aspart) flash glucose sensor (FreeStyle #2 ea 03/20/21 Chepe 2 Sensor) mupirocin 2 % topical ointment 1 applic TOPICAL TID #22 g 03/29/21 triamcinolone acetonide 0.1 % 1 applic TOPICAL BID PRN #80 g 05/15/21 topical ointment pen needle, diabetic 32 gauge x #90 unit 06/28/2110/30 (Novofine 32) meloxicam 15 mg tablet 15 mg PO DAILY #60 tab-cap 10/01/21 glipizide 5 mg tablet 5 mg PO HS #90 tab 10/04/21 glipizide 5 mg tablet 10 mg PO DAILY AM #180 tab 10/04/21 metformin 1,000 mg tablet 1,000 mg PO BID #180 tab-cap 11/16/21 levofloxacin 750 mg tablet 750 mg PO DAILY 6 Days #6 tab 12/23/21 pen needle, diabetic 32 gauge x #100 ea 12/26/21 Allergies Allergy/AdvReac Type Severity Reaction Status Date / Time Sulfa (Sulfonamide AdvReac Intermediate NAUSEA Verified 12/23/21 11:40 Antibiotics) DUST Allergy Intermediate NASAL Uncoded 12/23/21 11:40 CONGESTION General MARIA GUADALUPE: 3 Review of Systems All systems reviewed & are unremarkable except as noted in HPI and below Constitutional Constitutional: Reports as per HPI, Denies chills and Denies fever(s) Eyes Eyes: Denies blurry vision ENT Ears, Nose, Mouth, and Throat: Denies dizziness, Denies sore throat and Denies throat swelling Cardiovascular Cardiovascular: Denies chest pain and Denies dyspnea Respiratory Respiratory: Denies cough and Denies dyspnea Gastrointestinal Gastrointestinal: Denies abdominal pain, Denies diarrhea and Denies vomiting Genitourinary Genitourinary: Denies hematuria and Denies dysuria Musculoskeletal Musculoskeletal: Denies back pain and Denies numbness Comments: R finger swelling and redness Integumentary/Breasts Skin/Breast: Denies lesions and Denies rash Neurologic Neurologic: Denies dizziness, Denies localized weakness and Denies numbness Allergic/Immunologic Allergic/Immunologic: Denies throat swelling PFSH All Active Problems (Updated 12/23/21 @ 13:21 by Nicolle Brown DO) Cellulitis of finger of right hand (Acute) COVID-19 (Acute) 07/2021 uri symptoms Gastroesophageal reflux disease with esophagitis (Chronic 08/09/15) 11/2021- EGD with bx-Barretts esophagus, due 2024 History of tobacco use (Acute) Insulin dependent type 2 diabetes mellitus, uncontrolled (Chronic) Medical History (Updated 12/23/21 @ 13:21 by Nicolle Brown DO) Abscess of right ring finger Anemia (08/18/15) iron deficiency extensive GI workup. Seen Heme at [facility] [place]. idiopathic but perhaps occult GI bleed Arthritis (10/02/12) PSORIATIC Cataract O.D. Cellulitis of right ring finger (~02/20/21) COVID 08/16 breakthrough infection-Mild symptoms: coughing, sneezing, mild congestion DVT prophylaxis Gout (08/26/12) Hx of scoliosis Idiopathic scoliosis Adorno Moreno placed at age 15; chest deformity; likely restrictive lung disease Male infertility Osteoporosis (08/18/15) Peptic reflux disease Psoriasis Psoriatic arthritis (10/02/12) Right flank pain Stress reaction, emotional Umbilical pain Weight loss Surgical History (Updated 12/14/21 @ 13:37 by Chelsea Gonzalez RN) EGD - MAC (~11/2021) EGD/COLO (08/09/15) MICHAEL MATTHEWS Extraction of cataract (~2009) History of cataract removal with insertion of prosthetic lens spinal canal structure surgery adorno moreno placed age 15 Family History Mother , age 62 Breast cancer Father , age 65 COPD (chronic obstructive pulmonary disease) Brother No problems noted. Maternal Grandfather Myocardial infarction Paternal Grandfather Myocardial infarction Maternal Grandmother No problems noted. Paternal Grandmother Myocardial infarction Brother No problems noted. Brother No problems noted. Brother No problems noted. 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[employer] Pets and animals: No Sexually active: Yes Do you think of yourself as: straight/heterosexual Current gender identity: male What is your relationship status?: How often do you talk on the phone with friends or family?: three or more times per week How often do you get together with friends or relatives?: three or more times per week How often do you attend orthodoxy or bahai services?: decline to answer Do you belong to any clubs or organized social groups?: yes Panel score (0-1 are the most socially isolated patients): 3 What type of physical activity do you participate in: decline to answer Duration: decline to answer Frequency: decline to answer Sandrita/Restorationist: None Special sandrita needs: No Seatbelt use: always Helmet use: No Drive intox or ride w/intox local bulk driver: No Do you feel safe at home: Yes Do you feel safe in your relationship?: Yes Exam Const General: cooperative, healthy appearing and no acute distress HENMT Head: normal to inspection Mouth: oral mucosae normal Eyes General: appearance normal, both eyes and all related structures Neck Neck: normal visual inspection Resp Effort & Inspection: normal respiratory effort and able to speak in complete sentences Cardio Rate: regular rate Skin General skin exam: no rashes or lesions noted Neuro General: patient alert, patient awake and patient oriented x3 Motor: muscle tone normal throughout Extrem Hand/finger images: 1. Moderate edema and erythema of R 2nd finger, erythema mostly noted on distal volar aspect/fingerpad. Pain with flexion at the DIP and PIP. No pain with passive extension. Psych Appearance: grossly normal Affect: normal affect
[2021-12-23 11:36] VITALS: BP 139/90; PULSE 114; RESP 18; TEMP 36.9; O2SAT 100
--- NOTE | 2021-12-23 12:20 | DI.RAD_ITS ---
Exam(s) XR HAND RT COMPLETE EXAM: XR HAND RT COMPLETE CLINICAL HISTORY: 2nd finger redness, swelling. TECHNIQUE: 2D digital imaging was performed of the right hand. Three images were obtained. AP, late ral and oblique views were obtained. COMPARISON: No exams were available for comparison FINDINGS: BONES: No acute fracture is present. No bony destructive lesion is seen. JOINTS: No dislocation present. SOFT TISSUE: There is generalized soft tissue swelling of the right index finger. No radiopaque fore ign body is identified. IMPRESSION: Generalized soft tissue swelling of the right index finger. No radiopaque foreign body or underlying osseous abnormality is identified. DATA REPOSITORY: RADIATION DOSE DELIVERED:
--- NOTE | 2021-12-23 12:26 | DI.VRAD_ITS ---
PROCEDURE INFORMATION: Exam: XR Right Hand Exam date and time: 12/23/2021 12:09 PM Age: 55 years old Clinical indication: Fingers; Right; Patient HX: Swelling index finger - unknown origin TECHNIQUE: Imaging protocol: XR Right hand. Views: 3 or more views. COMPARISON: CR XR FINGER RT RING 02/20/2021 11:39 PM FINDINGS: Bones/joints: Normal. Soft tissues: Normal. Other findings: There is no evidence of acute fracture.There is no evidence of malalignment or dislocation. IMPRESSION: There is no evidence of acute fracture.There is no evidence of malalignment or dislocation. Dictated and Authenticated by: Nicole Harman MD. Ordering:MARCO Valverde MD
[2021-12-23] MEDS: Acetaminophen 500 MG TAB 1000 MG PO (12:35)
[2021-12-23 12:38] LABS: Abs Immature Grans 0.02 10^3/uL (0.0-0.06); Absolute Basophil Count 0.07 10^3/uL (0.0-0.2); Absolute Eosinophil Count 0.13 10^3/uL (0.0-0.7); Absolute Lymphocyte Count 1.77 10^3/uL (1.2-3.4); Absolute Monocyte Count 0.99 10^3/uL (0.1-0.8); Absolute Neutrophil Count 5.67 10^3/uL (1.2-6.7); Basophils % 0.8; Eosinophils % 1.5; HCT 40.7 % (40.0-50.0); Immature Grans % 0.2; Lymphocytes % 20.5; MCH 26.3 pg (27.0-33.0); MCHC 31.9 % (32.0-36.0); MCV 82.2 fL (80-95); MPV 8.9 fL (8.0-11.0); Monocytes % 11.4; Neutrophils % 65.6; Nucleated RBC 0 %; Platelet Count 377 10^3/uL (130-400); RBC 4.95 10^6/uL (4.36-5.78); RDW 13.4 % (11.8-14.1); RDW-SD 40.3 fL; WBC 8.65 10^3/uL (4.4-10.8)
[2021-12-23 12:41] LABS: ESR 13 mm/hr (0-20)
[2021-12-23 12:57] LABS: ALT 23 U/L (16-63); AST 13 U/L (15-37); Alkaline Phosphatase 136 U/L (46-116); Anion Gap 8.4 mmol/L (3-11); BUN 20 mg/dL (7-18); Bilirubin, Total 0.3 mg/dL (0.2-1.0); C-Reactive Protein 1.41 mg/dL (0.0-0.3); CO2 27.6 mmol/L (21.0-32.0); CREATININE 1.3 mg/dL (0.70-1.30); Calcium 9.3 mg/dL (8.5-10.1); Chloride 101 mmol/L (98-107); Estimated GFR 57.53 (mL/min/1.73m2); Glucose 198 mg/dL (74-106); Potassium 4.7 mmol/L (3.5-5.1); Sodium 137 mmol/L (136-145)
[2021-12-23] MEDS: Clindamycin 150 MG CAP 450 MG PO (13:08)
[2021-12-23] MEDS: Amoxicillin 875/Clav. 125 TAB PO (13:08)
[2021-12-23] MEDS: levoFLOXacin 500 MG, levoFLOXacin 250 MG 750 MG PO (13:33)
[2021-12-23 13:41] VITALS: BP 132/88; PULSE 100; RESP 18; TEMP 36.3; O2SAT 100
== END 2021-12-23 13:43 | disposition home or self-care (01) ==
PROVIDERS: Emergency Provider Physician Assistant; PCP Family Medicine
DX: L03.011 Cellulitis of right finger (principal); E11.9 Type 2 diabetes mellitus without complications; Z79.4 Long term (current) use of insulin; Z86.16 Personal history of COVID-19
CPT/HCPCS: 36415; 80053; 85652; 99283; 73130; 85025; 86140

== ENCOUNTER 2021-12-28 10:29 | Outpatient (CLI) | payer OTHER, SELFPAY ==
[2021-12-28 12:19] LABS: Source Nasal/Nares
[2021-12-28 15:39] LABS: COVID-19 PCR Negative (Negative)
== END 2021-12-28 10:30 | disposition home or self-care (01) ==
LOC: LBO 10:29
PROVIDERS: PCP Family Medicine; Visit Provider Student in an Organized Health Care Education/Training Program
DX: Z20.822 Contact with and (suspected) exposure to COVID-19 (principal)
CPT/HCPCS: 87635

== ENCOUNTER 2021-12-31 10:30 | Day surgery (SDC) | payer OTHER, SELFPAY ==
--- NOTE | 2021-12-31 07:02 | W.ANESPRE ---
General Info Date of Service Date Performed: 12/31/21 Height: 5 ft 7 in Weight: 63.73 kg Body Mass Index (BMI): 21.9 Surgical Procedure: Operation Date: 12/31/21 12:10 Proposed Procedure Side Surgeon p I&D Rt Index Finger Right Rafa Chow MD Meds Allergies and Home Medications Allergies Allergy/AdvReac Type Severity Reaction Status Date / Time Sulfa (Sulfonamide AdvReac Intermediate NAUSEA Verified 12/31/21 10:42 Antibiotics) DUST Allergy Intermediate NASAL Uncoded 12/31/21 10:42 CONGESTION Home Medication Medication Instructions Recorded loratadine 10 mg tablet 10 mg PO DAILY PRN tab-cap 12/29/12 insulin syringe-needle U-100 1 mL #200 syringe 04/19/15 26 x 1/2 (BD Insulin Syringe) ascorbic acid (vitamin C) 500 mg 1 tab PO DAILY 06/02/15 tablet (Vitamin C) fluticasone propionate 50 1 - 2 spr NS DAILY PRN #1 bottle 10/15/15 mcg/actuation nasal spray,suspension wyvcfqoypd-kgioeqorsp-vrjilzkc-hyalur 2 ea PO BID 09/30/17 ac 375 mg-300 mg-175 mg-2 mg cap Enbrel Sureclick 50 mg SQ Weekly 12/09/17 insulin glargine 100 unit/mL (3 13 unit IM/SC BID 02/20/21 mL) subcutaneous pen (Lantus Solostar U-100 Insulin) empagliflozin 25 mg tablet 25 mg PO DAILY #90 tab-cap 03/13/21 (Jardiance) insulin aspart U-100 100 unit/mL 5 unit (0.05 mL) SUBCUT AC #15 ml 03/13/21 (3 mL) subcutaneous pen (Novolog Flexpen U-100 Insulin aspart) flash glucose sensor (FreeStyle #2 ea 03/20/21 Chepe 2 Sensor) mupirocin 2 % topical ointment 1 applic TOPICAL TID #22 g 03/29/21 triamcinolone acetonide 0.1 % 1 applic TOPICAL BID PRN #80 g 05/15/21 topical ointment pen needle, diabetic 32 gauge x #90 unit 06/28/21 1/4 (Novofine 32) meloxicam 15 mg tablet 15 mg PO DAILY #60 tab-cap 10/01/21 glipizide 5 mg tablet 5 mg PO HS #90 tab 10/04/21 glipizide 5 mg tablet 10 mg PO DAILY AM #180 tab 10/04/21 metformin 1,000 mg tablet 1,000 mg PO BID #180 tab-cap 11/16/21 pen needle, diabetic 32 gauge x #100 ea 12/26/21 famotidine 40 mg tablet 40 mg PO DAILY #30 tab 12/28/21 levofloxacin 750 mg tablet 750 mg PO DAILY 6 Days #6 tab 12/28/21 acetaminophen 500 mg tablet 500 mg PO Q6H PRN PRN #40 tab 12/31/21 hydrocodone 5 mg-acetaminophen 325 1 tab PO Q4H PRN #3 tab 12/31/21 mg tablet omeprazole 20 mg tablet,delayed 20 mg PO DAILY 12/31/21 release Current Visit Medications: Current Medications Generic Name Dose Route Start Last Admin Trade Name Freq PRN Reason Stop Dose Admin Ringer's Solution 1,000 mls @ 80 mls/hr 12/31/21 06:00 IV 01/24/22 23:59 INFUSION ELMO Cefazolin Sodium/Dextrose 2 gm in 50 mls @ 100 mls/hr 12/31/21 06:00 Ancef Duplex IVPB 12/31/21 23:59 PREOP ELMO IV Miscellaneous Supplies 1 each 12/31/21 06:00 Iv Access IV 01/24/22 23:59 DIRECTED ELMO Sodium Chloride 0 ml 12/31/21 06:00 Normal Saline Flush 10 Ml Syr IV 01/24/22 23:59 PRN PRN Sodium Chloride 0 ml 12/31/21 06:00 Normal Saline 10 Ml Vial IJ 01/24/22 23:59 DIRECTED PRN Sterile Water 0 ml 12/31/21 06:00 Water,Injection,Sterile 10 Ml Vial IJ 01/24/22 23:59 DIRECTED PRN PFSH Active Problems Active Problems: Problem Status Onset Code 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 K22.70 Abscess of right index finger L02.511 Cellulitis of finger of right hand L03.011 COVID-19 U07.1 Gastroesophageal reflux disease with esophagitis 08/09/15 K21.0 History of tobacco use Z87.891 Insulin dependent type 2 diabetes mellitus, uncontrolled E11.65, Z79.4 Medical History Medical History Abscess of right ring finger Anemia (08/18/15) iron deficiency extensive GI workup. Seen Heme at [facility] [place]. idiopathic but perhaps occult GI bleed Arthritis (10/02/12) PSORIATIC Cataract O.D. Cellulitis of right ring finger (~02/20/21) COVID 08/16 breakthrough infection-Mild symptoms: coughing, sneezing, mild congestion DVT prophylaxis Gout (08/26/12) Hx of scoliosis Idiopathic scoliosis Adorno Moreno placed at age 15; chest deformity; likely restrictive lung disease Male infertility Osteoporosis (08/18/15) Peptic reflux disease Psoriasis Psoriatic arthritis (10/02/12) Right flank pain Stress reaction, emotional Umbilical pain Weight loss Surgical History Surgical History EGD - MAC (~11/2021) EGD/COLO (08/09/15) MICHAEL MATTHEWS Extraction of cataract (~2009) History of cataract removal with insertion of prosthetic lens spinal canal structure surgery adorno moreno placed age 15 Tobacco Smoking/Tobacco Use Status: Former Tobacco Use Passive smoking exposure: Yes Alcohol Alcohol Intake: former Substance Use Substance use: Never Substance use type: does not use Vital Signs and Lab Results Lab Results Blood Type / Crossmatch: No Data to Display Complete Blood Count: White Blood Count 8.65 10^3/uL (4.4-10.8) 12/23/21 12:27 12/23/21 Red Blood Count 4.95 10^6/uL (4.36-5.78) 12/23/21 12:27 12/23/21 Hemoglobin 13.0 g/dL (13.5-17.5) L 12/23/21 12:12/23/21 Hematocrit 40.7 % (40.0-50.0) 12/23/21 12:12/23/21 Platelet Count 377 10^3/uL (130-400) 12/23/21 12:12/23/21 Complete Metabolic Panel: Sodium Level 137 mmol/L (136-145) 12/23/21 12:27 12/23/21 Potassium Level 4.7 mmol/L (3.5-5.1) 12/23/21 12:12/23/21 Chloride Level 101 mmol/L (98-107) 12/23/21 12:12/23/21 Carbon Dioxide Level 27.6 mmol/L (21.0-32.0) 12/23/21 12:12/23/21 Blood Urea Nitrogen 20 mg/dL (7-18) H 12/23/21 12:27 12/23/21 Creatinine 1.3 mg/dL (0.70-1.30) 12/23/21 12:12/23/21 Estimated GFR/1.73 m2 57.53 (mL/min/1.73m2) 12/23/21 12:12/23/21 Calcium Level 9.3 mg/dL (8.5-10.1) 12/23/21 12:12/23/21 Albumin 4.0 g/dL (3.4-5.0) 12/23/21 12:12/23/21 Glucose Level 198 mg/dL (74-106) H 12/23/21 12:12/23/21 C-Reactive Protein 1.41 mg/dL (0.0-0.3) H 12/23/21 12:12/23/21 Liver Function Panel: Alanine Aminotransferase (ALT/SGPT) 23 U/L (16-63) 12/23/21 12:12/23/21 Aspartate Amino Transf (AST/SGOT) 13 U/L (15-37) L 12/23/21 12:12/23/21 Coagulation Panel: No Data to Display Cardiac Panel: No Data to Display Arterial Blood Gas: No Data to Display Venous Blood Gas: No Data to Display Pancreas Panel: No Data to Display Thyroid Panel: No Data to Display Infectious Disease: Coronavirus (COVID-19)(PCR) Negative (Negative) 12/28/21 09:20 12/28/21 Coronavirus 2019 Source Nasal/Nares 12/28/21 09:20 12/28/21 Blood Cultures: No Data to Display Toxicology Panel: No Data to Display Imaging and Studies Imaging and Studies Study information below may be from another EMR and interpreted by another provider. Please see original notes in EMR for more complete details. EKG Summary: Conclusion Sinus tachycardia...rate> 99 Probable left atrial enlargement...P >50mS, <-0.10mV V1 ST elev, probable normal early repol pattern...ST elevation, age<56 I have reviewed and interpreted ECG and agree with software generated interpretation. Anesthesia Assessment and Plan Anesthesia History Personal History: No History of Anesthesia Complications Family History: No Family History of Anesthesia Complications Exercise Tolerance Exercise Tolerance: Metabolic Equivalents>4 Pertinent Negatives Pertinent Negatives: No Symptoms of GERD, No Major Cardiovascular Symptoms or Complaints, No Major Pulmonary Symptoms or Complaints ( with non-productive cough. Discussed with Zeeshan Young and clear to proceed. ) and No History of CVA/TIA Cardiac & Pulmonary Exam Cardiac Exam: Normal S1/S2 Heart Sounds Pulmonary Exam: Clear Bilateral Breath Sounds Implantable Cardiac Device Does patient have a Pacemaker or an ICD?: No Airway Exam Known Difficult Airway: No Mallampati Class: 2 Mouth Opening: Normal (> 3cm) Thyromental Distance: Greater than 3 cm Neck Range of Motion: Full ROM Neck Circumference: Normal Teeth Condition: Generalized Poor Dentition (Some missing upper right and wisdom tooth.) ASA Classification ASA Score: ASA 2 Emergency Case?: No NPO Status NPO Status: NPO Clears >2 hours, Solids >8 hours Anesthesia Plan Resuscitation Status: Full Code Anesthesia Technique: General Anesthesia Airway Planned: Natural Airway Monitors Used: Standard Monitors Preoperative Comments:: BGL better controlled with new electronic detection system. Patient concerned about wakefullness during localization. Plan to keep deep during initial (GA) then lighten propofol infusion.
[2021-12-31 10:58] VITALS: BP 129/82; PULSE 100; RESP 18; TEMP 36.2; O2SAT 99
[2021-12-31] MEDS: Lactated Ringers 1,000 ML 80 ML IV (11:29)
[2021-12-31] MEDS: ceFAZolin 2 GM/50 ML BAG IVPB (12:06)
[2021-12-31] MEDS: Lidocaine 1% Multi-Dose 50 ML VIAL (12:12)
[2021-12-31 12:14] VITALS: BMI 21.9
[2021-12-31 12:31] VITALS: BP 117/82; PULSE 101; RESP 16; TEMP 36.2; O2SAT 98
--- NOTE | 2021-12-31 12:55 | W.ANESPOSTOP ---
Postoperative Evaluation Date, Time and Location Date Performed: 12/31/21 Time Performed: 12:31 Patient Location: Day Surgery Unit Vital Signs Most Recent Imported Vital Signs: Most Recent Vital Signs Temp Pulse Resp BP Pulse Ox 36.2 C L 101 H 16 117/82 98 12/31/21 12:31 12/31/21 12:31 12/31/21 12:31 12/31/21 12:31 12/31/21 12:31 Pain Score Most Recent Pain Score: Most Recent Pain Score Pain Level 0 12/31/21 12:31 Assessment Mental Status: Awake (Alert & Oriented to Patient Baseline) Airway and Respiratory Function: Patent airway with normal (patient baseline) respiratory exam Cardiovascular Function: Hemodynamically Stable Hydration Status: Adequately Hydrated Nausea & Vomiting: No Nausea or Vomiting Pain: Pt. Denies Any Pain Peripheral Nerve Block: Other (digital block by Damon Chow MD still present)
[2021-12-31 13:01] VITALS: BP 126/93; PULSE 99; RESP 18; TEMP 36.8; O2SAT 99
--- NOTE | 2021-12-31 17:58 | ROE_ITS ---
Date of service: 12/31/21 Time of Service: 12:35 Operative Note Operative Note DATE OF PROCEDURE: 12/31/21 PRE-OP DIAGNOSIS: Right index finger abscess POST-OP DIAGNOSIS: same PROCEDURE: Irrigation and Debridement of Right Index Finger Abscess SURGEON: Rafa Chow ANESTHESIA TYPE: General:No Airway Refer to Anesthesia Record ESTIMATED BLOOD LOSS: 5 PATHOLOGY: none sent COMPLICATIONS: None Patient was transported to: same day Patient's condition: stable Indications: I have seen Ervin in clinic for an infection of the right index finger. He was treated on antibiotics with significant resolution of the swelling and errythema, however, he continued to have an area of fluctuance about the middle phalanx region. Given this persistence, I recommended surgical irrigation and debridement. I reviewed the risks of the procedure to include, but not limited to, bleeding, persistent infection, pain, stiffness, incomplete release, damage to nerves or vessels, continued catching, recurrence. Despite these risks, the patient elected to proceed. Findings: There was minimal purulent fluid encountered. There was notable thickening of the soft tissues. Debridement was performed with aggressive irrigation. No tendon involvement. Procedure Description: Ervin was greeted in the preoperative holding area where the correct side was identified and marked. The consent was reviewed with the patient and signed. All questions were answered. Ervin was taken back to the operating room. The patient was placed into the supine position on the operating room table with the right arm on an arm board. All bony prominences were well padded. No prophylactic antibiotics were administered - he is currently on Levaquin. The right arm was then prepped with Chloraprep and draped in a standard fashion with stockinette and extremity drape. A timeout to confirm correct identity, side and site, procedure, allergies, anesthesia, and medical concerns was performed. A digital block was then administered with 1% lidocaine from a palmar approach a t the level of the MCP joint. Once this was set up, it was appropriately tested. I then made a diagonal approach over the middle phalangeal region from the DIP flexion crease of the PIP flexion crease, directly over the area of fluctuance. Once the skin was incised, there is a very minor amount of purulence encountered. A swab of this fluid was sent to the lab for aerobic culture. There is notable density in the soft tissue in this region signs of a healing infection. Using a rongeur, removing some of this excess tissue. Which was debrided I then inspected the flexor tendon sheath which had no defects. There is no purulence within the flexor tendon sheath. The wound was then thoroughly irrigated. The wound was once again inspected and the skin was closed with a 4-0 Nylon. This was dressed with gauze and a Conform dressing. The patient tolerated the procedure well and was returned to the Same Day Surgery area in a stable condition suffering no known complication.
== END 2021-12-31 13:32 | disposition home or self-care (01) ==
PROVIDERS: PCP Family Medicine; Visit Provider Student in an Organized Health Care Education/Training Program
PROC: (CPT 26160; principal; 2021-12-31 12:00)
DX: L02.511 Cutaneous abscess of right hand (principal); L90.5 Scar conditions and fibrosis of skin; E11.9 Type 2 diabetes mellitus without complications; Z79.4 Long term (current) use of insulin; K22.70 Barrett's esophagus without dysplasia
CPT/HCPCS: 11043; 87077; 87070; 87186; 87205; J0690; J1100; J2250; J2405; J2704

== ENCOUNTER 2022-02-26 19:42 | Outpatient (REF) | payer OTHER, SELFPAY | END 2022-02-26 19:43 | disposition home or self-care (01) | LOC: LBN 19:42 | PROVIDERS: PCP Nurse Practitioner Family; Visit Provider Family Medicine | DX: B99.8 Other infectious disease (principal); E11.9 Type 2 diabetes mellitus without complications; Z79.4 Long term (current) use of insulin; L08.89 Other specified local infections of the skin and subcutaneous tissue | CPT/HCPCS: 87077; 87070; 87186; 87205 ==

== ENCOUNTER 2022-03-27 04:06 | Outpatient (CLI) | payer OTHER, SELFPAY ==
[2022-03-27 13:31] LABS: COMMENT (LAB VIEW ONLY) 102.01 mg/dL
[2022-03-27 13:44] LABS: ALT 24 U/L (16-63); AST 15 U/L (15-37); Alkaline Phosphatase 116 U/L (46-116); Anion Gap 8.5 mmol/L (3-11); BUN 20 mg/dL (7-18); Bilirubin, Total 0.3 mg/dL (0.2-1.0); CO2 26.5 mmol/L (21.0-32.0); CREATININE 1.2 mg/dL (0.70-1.30); Calcium 8.9 mg/dL (8.5-10.1); Calculated LDL 95 mg/dL (<100); Chloride 105 mmol/L (98-107); Cholesterol 147 mg/dL (<200); Glucose 234 mg/dL (74-106); HDL Cholesterol 46 mg/dL (40-60); Potassium 4.6 mmol/L (3.5-5.1); Sodium 140 mmol/L (136-145); Total Protein 7.3 g/dL (6.4-8.2); Triglyceride 33 mg/dL (<150)
[2022-03-27 17:18] LABS: Hemoglobin A1C 8.7 % (<5.7)
[2022-03-27 22:17] LABS: PSA, Screening 1.3 ng/mL (<=3.5)
[2022-03-28 11:01] LABS: Hepatitis C Ab w Rflx HCV PCR Negative (Negative)
[2022-03-28 11:03] LABS: HIV-1/2 Ag & Ab Screen Negative (Negative)
== END 2022-03-27 04:07 | disposition home or self-care (01) ==
PROVIDERS: PCP Nurse Practitioner Family; Visit Provider Family Medicine
DX: I10 Essential (primary) hypertension (principal); E11.65 Type 2 diabetes mellitus with hyperglycemia; Z79.4 Long term (current) use of insulin; Z11.59 Encounter for screening for other viral diseases; Z11.4 Encounter for screening for human immunodeficiency virus [HIV]; Z12.5 Encounter for screening for malignant neoplasm of prostate
CPT/HCPCS: 36415; 80053; 80061; 84153; 86803; 87389; 82043; 82570; 83036

== ENCOUNTER 2022-05-30 22:59 | Emergency (ER) | payer OTHER, SELFPAY ==
[2022-05-30 23:04] VITALS: BP 148/90; PULSE 104; RESP 18; TEMP 36.7; O2SAT 100
[2022-05-30] MEDS: Lidocaine/Epinephri/Tetracaine Topical Gel 3 ML TP (23:39)
--- NOTE | 2022-05-31 00:14 | W.ED.GENAD ---
Discharge Plan Disposition Patient Disposition: HOME Condition: Stable Discharge Details Clinical Impression: Abscess of right axilla Primary Care Provider: Ermias Teague ED Provider: Yoav Trejo Home Meds and New Rx's Prescriptions: Continued insulin aspart U-100 [Novolog Flexpen U-100 Insulin] 100 unit/mL (3 mL) insulin pen 5 unit subcut AC Qty: 15 8RF triamcinolone acetonide 0.1 % ointment 1 applic topical BID PRN (Reason: dermatitis) Qty: 80 0RF famotidine 40 mg tablet 40 mg PO DAILY Qty: 30 0RF loratadine 10 MG tablet 10 mg PO DAILY PRN TEST STRIPS 1 EACH strip 1 ea Miscellaneous BID Qty: 180 4RF Rx Instructions: Freestyle lite. Dx: 250.0 ascorbic acid (vitamin C) [Vitamin C] 500 MG tablet 1 tab PO DAILY fluticasone propionate 16 GM spray,suspension 1 - 2 spr NS DAILY PRNQty: 1 Rx Instructions: for post nasal drip glucosam-chond gp-otaydy-id ac 1 EACH capsule 2 ea PO BID ENBREL SURECLICK 50 MG/1 ML PEN.INJCTR 50 mg SQ Weekly (DME) FreeStyle Chepe 2 Sensor Kit See Rx Instructions .ROUTE .MEDSUPPLY Qty: 2 12RF Rx Instructions: As directed mupirocin 2 % ointment 1 applic topical TID Qty: 22 0RF Rx Instructions: Using a Q-tip apply a small amount to each nostril three times a day. You may also apply this to any open wounds. metformin 1,000 mg tablet 1,000 mg PO BID Qty: 180 4RF (DME) pen needle, diabetic 32 gauge x 5/32 needle See Rx Instructions .ROUTE .COMPLEX Qty: 100 0RF Dose Instruction: USE ONCE DAILY Rx Instructions: USE ONCE DAILY (DME) pen needle, diabetic [Novofine 32] 32 gauge x 1/4 needle 1 ea Miscellaneous DAILY Qty: 360 3RF Rx Instructions: as needed. variable Jardiance 25 mg tablet 25 mg PO DAILY Qty: 90 1RF insulin glargine [Lantus Solostar U-100 Insulin] 100 unit/mL (3 mL) insulin pen See Rx Instructions IM/SC BID Qty: 15 11RF Rx Instructions: Intramuscularly or Subcutaneously twice a day; `15U a.m., 14 units hs omeprazole 20 mg Tablet,Delayed Release (Dr/Ec) 20 mg PO DAILY acetaminophen 500 mg tablet 500 mg PO Q6H PRN PRN (Reason: pain) Qty: 40 3RF omeprazole 20 mg Capsule,Delayed Release(Dr/Ec) 20 mg PO BID Discontinued cephalexin 500 mg capsule 500 mg PO TID Qty: 15 0RF Discharge Instructions Instructions: Abscess (ED) Additional Instructions: Perform warm compresses to left axilla and chest to encourage drainage. Applied a warm compress at least every few hours for the next week and continue until abscess resolves. Please contact your primary care physician to arrange follow-up. Return to the ER immediately for any worsening or new concerning symptoms including increased redness, pain or fever. Referrals: Ermias Teague, INFORMATICS PHARMACIST [Primary Care Provider] - Medical Decision Making 56-year-old male with insulin-dependent diabetes and with a history of cutaneous abscesses in the past, presents with focal abscess of the left axilla with no surrounding erythema or induration. Patient initially considered conservative management with warm compresses but then elected to proceed with incision and drainage. Patient provided verbal informed consent. Area was anesthetized with topical lidocaine and local injection of lidocaine with epinephrine. A small incision was made with 11 blade and was able to express a small amount of purulent drainage. Pfeqw-cj-xlwq glucose slightly elevated. Patient was instructed to monitor her sugar closely and take his insulin as prescribed. No indication for antibiotics at this time. Plan for warm compresses and monitor COLST for the next few days. Usual customary discharge instructions reviewed with the patient. HPI General Mode of arrival: ambulatory. Date/Time Provider Initiated Documentation: 05/30/22 23:20. Limitations to Documentation: no limitations. Information obtained by: patient. HPI Narrative: 56-year-old male with history of insulin-dependent diabetes, here with chief complaint of abscess left axilla. Patient notes he has had abscesses in the past. He states he noticed swelling in the area a few days ago. Swelling has progressed. Area is mildly tender. He has no associated fever. No other abscess or rash. No modifiers. Related Data Home Medications Medication Instructions Recorded Confirmed loratadine 10 mg tablet 10 mg PO DAILY PRN 12/29/12 05/30/22 ascorbic acid (vitamin C) 500 mg 1 tab PO DAILY 06/02/15 05/30/22 tablet (Vitamin C) fluticasone propionate 50 1 - 2 spr NS DAILY PRN ##1 10/15/15 05/30/22 mcg/actuation nasal spray,suspension ocirxijpqz-ikxoavnuof-qhozlxog-hyalur 2 ea PO BID 09/30/17 05/30/22 ac 375 mg-300 mg-175 mg-2 mg cap Enbrel Sureclick 50 mg SQ Weekly 12/09/17 05/22/22 insulin aspart U-100 100 unit/mL 5 unit (0.05 mL) subcut AC #15 mL 03/13/21 05/30/22 (3 mL) subcutaneous pen (Novolog Flexpen U-100 Insulin aspart) flash glucose sensor (FreeStyle #2 ea 03/20/21 05/22/22 Chepe 2 Sensor kit) mupirocin 2 % topical ointment 1 applic topical TID MRSA Home 03/29/21 05/30/22 Eradication #22 grams triamcinolone acetonide 0.1 % 1 applic topical BID PRN 05/15/21 05/30/22 topical ointment dermatitis #80 grams metformin 1,000 mg tablet 1,000 mg PO BID #180 tab-caps 11/16/21 05/30/22 pen needle, diabetic 32 gauge x #100 ea 12/26/21 05/22/22 famotidine 40 mg tablet 40 mg PO DAILY #30 tabs 12/28/21 05/22/22 acetaminophen 500 mg tablet 500 mg PO Q6H PRN PRN pain #40 tabs 12/31/21 05/30/22 omeprazole 20 mg tablet,delayed 20 mg PO DAILY 12/31/21 05/30/22 release pen needle, diabetic 32 gauge x #360 units 02/08/22 05/22/22 1 (Novofine 32) empagliflozin 25 mg tablet 25 mg PO DAILY #90 tab-caps 03/29/22 05/30/22 (Jardiance) insulin glargine 100 unit/mL (3 See Rx Instructions IM/SC BID #15 03/29/22 05/30/22 mL) subcutaneous pen (Lantus mL Solostar U-100 Insulin) omeprazole 20 mg capsule,delayed 20 mg PO BID 05/30/22 05/30/22 release Previous Rx's Medication Instructions Recorded insulin aspart U-100 100 unit/mL 5 unit (0.05 mL) subcut AC #15 mL 03/13/21 (3 mL) subcutaneous pen (Novolog Flexpen U-100 Insulin aspart) flash glucose sensor (FreeStyle #2 ea 03/20/21 Chepe 2 Sensor kit) mupirocin 2 % topical ointment 1 applic topical TID MRSA Home 03/29/21 Eradication #22 grams triamcinolone acetonide 0.1 % 1 applic topical BID PRN 05/15/21 topical ointment dermatitis #80 grams metformin 1,000 mg tablet 1,000 mg PO BID #180 tab-caps 11/16/21 pen needle, diabetic 32 gauge x #100 ea 12/26/21 famotidine 40 mg tablet 40 mg PO DAILY #30 tabs 12/28/21 acetaminophen 500 mg tablet 500 mg PO Q6H PRN PRN pain #40 tabs 12/31/21 pen needle, diabetic 32 gauge x #360 units 02/08/2210/30 (Novofine 32) empagliflozin 25 mg tablet 25 mg PO DAILY #90 tab-caps 03/29/22 (Jardiance) insulin glargine 100 unit/mL (3 See Rx Instructions IM/SC BID #15 03/29/22 mL) subcutaneous pen (Lantus mL Solostar U-100 Insulin) Allergies Allergy/AdvReac Type Severity Reaction Status Date / Time Sulfa (Sulfonamide AdvReac Intermediate NAUSEA Verified 05/30/22 23:06 Antibiotics) DUST Allergy Intermediate NASAL Uncoded 05/30/22 23:06 CONGESTION General Stated Complaint: Cellulitis MARIA GUADALUPE: 4 Review of Systems All systems reviewed & are unremarkable except as noted in HPI and below Constitutional Constitutional: Denies fever(s) Integumentary/Breasts Skin/Breast: Reports as per HPI PFSH All Active Problems Abscess of right axilla (Acute) Psoriatic arthritis (Acute) Psoriasis (Chronic) tanisha-Dr Schmidt, Derm. 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 (Acute) Abscess of right index finger (Acute) COVID-19 (Acute) 07/2021 uri symptoms Gastroesophageal reflux disease with esophagitis (Chronic 08/09/15) 11/2021- EGD with bx-Barretts esophagus, due 2024, Dr Matthews[facility] History of tobacco use (Acute) Insulin dependent type 2 diabetes mellitus, uncontrolled (Chronic) Medical History Abscess of right ring finger Anemia (08/18/15) iron deficiency extensive GI workup. [place] [facility] [place] idiopathic but perhaps occult GI bleed Arthritis (10/02/12) PSORIATIC Cataract O.D. Cellulitis of right ring finger (~02/20/21) COVID 08/16 breakthrough infection-Mild symptoms: coughing, sneezing, mild congestion DVT prophylaxis Gout (08/26/12) Hx of scoliosis Idiopathic scoliosis Adorno Moreno placed at age 15; chest deformity; likely restrictive lung disease Male infertility Osteoporosis (08/18/15) Peptic reflux disease Psoriasis Psoriatic arthritis (10/02/12) Right flank pain Stress reaction, emotional Umbilical pain Weight loss Surgical History EGD - MAC (~11/2021) EGD/COLO (08/09/15) MICHAEL MATTHEWS Extraction of cataract (~2009) History of cataract removal with insertion of prosthetic lens spinal canal structure surgery adorno moreno placed age 15 Family History Mother , age 62 Breast cancer Father , age 65 COPD (chronic obstructive pulmonary disease) Brother No problems noted. Maternal Grandfather Myocardial infarction Paternal Grandfather Myocardial infarction Maternal Grandmother No problems noted. Paternal Grandmother Myocardial infarction Brother No problems noted. Brother No problems noted. Brother No problems noted. Son Adopted Daughter Adopted Social History Smoking/Tobacco Use Status: Current-Occasional Tobacco: How many years used: 5 Second Hand Exposure: Yes Smoking risk assessment performed?: Yes Alcohol Intake: former Drug use: Never Substance use type: does not use Caregiver/Support person: No Household members: spouse Housing: apartment Communication Needs: None Do you need help understanding health information?: Never current occupation: [employer] Pets and animals: No Sexually active: No Do you think of yourself as: straight/heterosexual Current gender identity: male What is your relationship status?: How often do you talk on the phone with friends or family?: once per week How often do you get together with friends or relatives?: once per week Do you belong to any clubs or organized social groups?: yes Panel score (0-1 are the most socially isolated patients): 2 What type of physical activity do you participate in: walking and decline to answer Duration: > 90 minutes/day Frequency: daily Sandrita/Yazidism: None Special sandrita needs: No Seatbelt use: always Helmet use: No Drive intox or ride w/intox [employer] 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 truck 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: No Do you feel safe at home: Yes Do you feel safe in your relationship?: Yes Exam Const General: cooperative and no acute distress HENMT Mouth: moist mucous membranes Resp Auscultation: clear to auscultation bilaterally, no rales, no rhonchi and no wheezes Cardio Rate: regular rate and not tachycardic Rhythm: regular rhythm Skin Rashes: no rashes Other: Abscess left axilla approximately 3 cm, mild erythema centrally that appears to be coming to ahead, no surrounding erythema or induration Neuro General: patient alert and patient awake Course Vital Signs Vital signs: Vital Signs Temperature 36.7 C 05/30/22 23:04 Pulse 104 H 05/30/22 23:04 Respiratory Rate 18 05/30/22 23:04 Blood Pressure 148/90 H 05/30/22 23:04 Pulse Oximetry 100 05/30/22 23:04 Temperature 36.7 C 05/30/22 23:04 Temperature Source Oral 05/30/22 23:04 Pulse 104 H 05/30/22 23:04 Respiratory Rate 18 05/30/22 23:04 Respiratory Effort Non-Labored 05/30/22 23:09 Blood Pressure 148/90 H 05/30/22 23:04 Pulse Oximetry 100 05/30/22 23:04 Pain Level 0 05/30/22 23:04 Procedures Abscess I/D Site: Other (axilla) Side (if applicable): Left Local Anesthetic: Lidocaine 1% and With Epi Amount of anesthesia used (mL): 4 Technique: Incised with #11 Blade Amount of fluid expressed (mL): 1 Irrigation: Yes Packing used?: None Complications: Other (none)
== END 2022-05-31 00:35 | disposition home or self-care (01) ==
PROVIDERS: Emergency Provider Student in an Organized Health Care Education/Training Program; PCP Nurse Practitioner Family
DX: L02.412 Cutaneous abscess of left axilla (principal); E11.9 Type 2 diabetes mellitus without complications; F17.200 Nicotine dependence, unspecified, uncomplicated; Z79.4 Long term (current) use of insulin
CPT/HCPCS: 10060; 99282

== ENCOUNTER 2022-07-06 23:00 | Emergency (ER) | payer OTHER, SELFPAY ==
[2022-07-06 23:04] VITALS: BP 172/88; PULSE 111; RESP 18; TEMP 37.5; O2SAT 100
[2022-07-06 23:07] VITALS: RESP 18
--- NOTE | 2022-07-06 23:08 | W.ED.GENAD ---
Discharge Plan Disposition Patient Disposition: HOME Condition: Good Discharge Details Clinical Impression: Abscess of external nose Primary Care Provider: Ermias Teague ED Provider: Rafat Blankenship Home Meds and New Rx's Prescriptions: New clindamycin HCl 150 mg capsule 450 mg PO QID 6 Days Qty: 72 0RF Continued insulin aspart U-100 [Novolog Flexpen U-100 Insulin] 100 unit/mL (3 mL) insulin pen 5 unit subcut AC Qty: 15 8RF TEST STRIPS 1 EACH strip 1 ea Miscellaneous BID Qty: 180 4RF Rx Instructions: Freestyle lite. Dx: 250.0 ascorbic acid (vitamin C) [Vitamin C] 500 MG tablet 1 tab PO DAILY fluticasone propionate 16 GM spray,suspension 1 - 2 spr NS DAILY PRNQty: 1 Rx Instructions: for post nasal drip glucosam-chond gk-bwekls-td ac 1 EACH capsule 2 ea PO BID ENBREL SURECLICK 50 MG/1 ML PEN.INJCTR 50 mg SQ Weekly (DME) FreeStyle Chepe 2 Sensor Kit See Rx Instructions .ROUTE .MEDSUPPLY Qty: 2 12RF Rx Instructions: As directed mupirocin 2 % ointment 1 applic topical TID Qty: 22 0RF Rx Instructions: Using a Q-tip apply a small amount to each nostril three times a day. You may also apply this to any open wounds. metformin 1,000 mg tablet 1,000 mg PO BID Qty: 180 4RF (DME) pen needle, diabetic 32 gauge x 5/32 needle See Rx Instructions .ROUTE .COMPLEX Qty: 100 0RF Dose Instruction: USE ONCE DAILY Rx Instructions: USE ONCE DAILY (DME) pen needle, diabetic [Novofine 32] 32 gauge x 1/4 needle 1 ea Miscellaneous DAILY Qty: 360 3RF Rx Instructions: as needed. variable Jardiance 25 mg tablet 25 mg PO DAILY Qty: 90 1RF insulin glargine [Lantus Solostar U-100 Insulin] 100 unit/mL (3 mL) insulin pen See Rx Instructions IM/SC BID Qty: 15 11RF Rx Instructions: Intramuscularly or Subcutaneously twice a day; `15U a.m., 14 units hs acetaminophen 500 mg tablet 500 mg PO Q6H PRN PRN (Reason: pain) Qty: 40 3RF omeprazole 20 mg Capsule,Delayed Release(Dr/Ec) 20 mg PO BID Discharge Instructions Instructions: Abscess (ED) Additional Instructions: You have an abscess on your nose. It has been drained. Please take the antibiotic as directed. Please continue to apply your mupirocin ointment or your triple antibiotic ointment as directed. Please wash the area gently with soap and water twice daily. If you notice any worsening of your symptoms, or any new symptoms such as spreading of the redness on the face, vomiting, diarrhea, fever, chills, shortness of breath, chest pain, numbness, weakness, or fainting , please return immediately to the emergency department for reevaluation. Please follow up with your primary care provider as soon as possible for reassessment and reevaluation. As always, it was a pleasure participating in your medical care today. Referrals: Ermias Teague, HEDGE FUND PRINCIPAL [Primary Care Provider] - Medical Decision Making This is a pleasant 56-year-old male who presents today for evaluation of nasal abscess. Patient states that for the last few days he had a small zit that slowly grew in size, he was able to drain some of it before, but now it is growing in size and becoming more tender. He denies any fever or chills. No other complaints at this time. No other modifying factors. Exam and demonstrates evidence of a small abscess at the nares on the left-hand side of midline. The area was anesthetized with molecular biology scientist with epi, needle aspiration was able to extract about 2 mL of fluid. Patient tolerated this well. We will give clindamycin for home. Discussed red flags which to return. No clinical evidence of Ludewig's angina, facial cellulitis, or other significant abnormality requiring inpatient admission. I have extensively reviewed the treatment plan and discharge instructions with the patient. I have addressed all patient concerns at this time. The patient was made aware of what symptoms to monitor for that would warrant a return to the emergency department. Discussed the plan with the patient, they demonstrate verbal understanding and agreement with our assessment and plan at this time. The documentation in this chart was dictated using [employer] dictation software. Please excuse any dictation errors. HPI General Date/Time Provider Initiated Documentation: 07/06/22 23:07. HPI Narrative: This is a pleasant 56-year-old male who presents today for evaluation of nasal abscess. Patient states that for the last few days he had a small zit that slowly grew in size, he was able to drain some of it before, but now it is growing in size and becoming more tender. He denies any fever or chills. No other complaints at this time. No other modifying factors. Related Data Home Medications Medication Instructions Recorded Confirmed ascorbic acid (vitamin C) 500 mg 1 tab PO DAILY 06/02/15 07/06/22 tablet (Vitamin C) fluticasone propionate 50 1 - 2 spr NS DAILY PRN ##1 10/15/15 07/06/22 mcg/actuation nasal spray,suspension yerpabffpi-zkuppddwfs-wdoudfef-hyalur 2 ea PO BID 09/30/17 07/06/22 ac 375 mg-300 mg-175 mg-2 mg cap Enbrel Sureclick 50 mg SQ Weekly 12/09/17 07/06/22 insulin aspart U-100 100 unit/mL 5 unit (0.05 mL) subcut AC #15 mL 03/13/21 07/06/22 (3 mL) subcutaneous pen (Novolog Flexpen U-100 Insulin aspart) flash glucose sensor (FreeStyle #2 ea 03/20/21 06/20/22 Chepe 2 Sensor kit) mupirocin 2 % topical ointment 1 applic topical TID MRSA Home 03/29/21 07/06/22 Eradication #22 grams metformin 1,000 mg tablet 1,000 mg PO BID #180 tab-caps 11/16/21 07/06/22 pen needle, diabetic 32 gauge x #100 ea 12/26/21 06/20/2232 acetaminophen 500 mg tablet 500 mg PO Q6H PRN PRN pain #40 tabs 12/31/21 07/06/22 pen needle, diabetic 32 gauge x #360 units 02/08/22 06/20/22 1/ (Novofine 32) empagliflozin 25 mg tablet 25 mg PO DAILY #90 tab-caps 03/29/22 07/06/22 (Jardiance) insulin glargine 100 unit/mL (3 See Rx Instructions IM/SC BID #15 03/29/22 07/06/22 mL) subcutaneous pen (Lantus mL Solostar U-100 Insulin) omeprazole 20 mg capsule,delayed 20 mg PO BID 05/30/22 07/06/22 release clindamycin HCl 150 mg capsule 450 mg PO QID 6 days #72 caps 07/06/22 Previous Rx's Medication Instructions Recorded insulin aspart U-100 100 unit/mL 5 unit (0.05 mL) subcut AC #15 mL 03/13/21 (3 mL) subcutaneous pen (Novolog Flexpen U-100 Insulin aspart) flash glucose sensor (FreeStyle #2 ea 03/20/21 Chepe 2 Sensor kit) mupirocin 2 % topical ointment 1 applic topical TID MRSA Home 03/29/21 Eradication #22 grams metformin 1,000 mg tablet 1,000 mg PO BID #180 tab-caps 11/16/21 pen needle, diabetic 32 gauge x #100 ea 12/26/21 acetaminophen 500 mg tablet 500 mg PO Q6H PRN PRN pain #40 tabs 12/31/21 pen needle, diabetic 32 gauge x #360 units 02/08/2210/30 (Novofine 32) empagliflozin 25 mg tablet 25 mg PO DAILY #90 tab-caps 03/29/22 (Jardiance) insulin glargine 100 unit/mL (3 See Rx Instructions IM/SC BID #15 03/29/22 mL) subcutaneous pen (Lantus mL Solostar U-100 Insulin) clindamycin HCl 150 mg capsule 450 mg PO QID 6 days #72 caps 07/06/22 Allergies Allergy/AdvReac Type Severity Reaction Status Date / Time Sulfa (Sulfonamide AdvReac Intermediate NAUSEA Verified 07/06/22 23:08 Antibiotics) DUST Allergy Intermediate NASAL Uncoded 07/06/22 23:08 CONGESTION General Stated Complaint: GenMedical MARIA GUADALUPE: 4 Review of Systems All systems reviewed & are unremarkable except as noted in HPI and below PFSH All Active Problems Abscess of external nose (Acute) Pes planus of both feet (Acute) Soft tissue infection (Acute) Psoriatic arthritis (Acute) Psoriasis (Chronic) tanisha-Dr Schmidt, Derm. 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 (Acute) Abscess of right index finger (Acute) COVID-19 (Acute) 07/2021 uri symptoms Gastroesophageal reflux disease with esophagitis (Chronic 08/09/15) 11/2021- EGD with bx-Barretts esophagus, due 2024, Dr Matthews-[facility] History of tobacco use (Acute) Insulin dependent type 2 diabetes mellitus, uncontrolled (Chronic) Medical History Abscess of right ring finger Anemia (08/18/15) iron deficiency extensive GI workup. Seen Heme [place] [facility] [place]. idiopathic but perhaps occult GI bleed Arthritis (10/02/12) PSORIATIC Cataract O.D. Cellulitis of right ring finger (~02/20/21) COVID 08/16 breakthrough infection-Mild symptoms: coughing, sneezing, mild congestion DVT prophylaxis Gout (08/26/12) Hx of scoliosis Idiopathic scoliosis Adorno Moreno placed at age 15; chest deformity; likely restrictive lung disease Male infertility Osteoporosis (08/18/15) Peptic reflux disease Psoriasis Psoriatic arthritis (10/02/12) Right flank pain Stress reaction, emotional Umbilical pain Weight loss Surgical History EGD - MAC (~11/2021) EGD/COLO (08/09/15) MICHAEL MATTHEWS Extraction of cataract (~2009) History of cataract removal with insertion of prosthetic lens spinal canal structure surgery adorno moreno placed age 15 Family History Mother , age 62 Breast cancer Father , age 65 COPD (chronic obstructive pulmonary disease) Brother No problems noted. Maternal Grandfather Myocardial infarction Paternal Grandfather Myocardial infarction Maternal Grandmother No problems noted. Paternal Grandmother Myocardial infarction Brother No problems noted. Brother No problems noted. Brother No problems noted. Son Adopted Daughter Adopted Social History Smoking/Tobacco Use Status: Current-Occasional Tobacco: How many years used: 5 Second Hand Exposure: Yes Smoking risk assessment performed?: Yes Alcohol Intake: former Drug use: Never Substance use type: does not use Caregiver/Support person: No Household members: spouse Housing: apartment Communication Needs: None Do you need help understanding health information?: Never current occupation: [employer] Pets and animals: No Sexually active: No Do you think of yourself as: straight/heterosexual Current gender identity: male What is your relationship status?: How often do you talk on the phone with friends or family?: once per week How often do you get together with friends or relatives?: once per week Do you belong to any clubs or organized social groups?: yes Panel score (0-1 are the most socially isolated patients): 2 What type of physical activity do you participate in: walking and decline to answer Duration: > 90 minutes/day Frequency: daily Sandrita/Yazdanism: None Special sandrita needs: No Seatbelt use: always Helmet use: No Drive intox or ride w/intox 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 3.ENT: Atraumatic external nose and ears. Moist MM. Neck: Symmetric, trachea midline, No thyromegaly. There is a small abscess noted in the center of his nose at the external nasal os at the medial aspect of the left nare. Mild fluctuance. No evidence of facial cellulitis otherwise. 4.CVS: +S1/S2, No murmurs or gallops. Peripheral pulses 2+ and equal in all extremities. Brisk capillary refill in all extremities. 5.RESP: Unlabored respiratory effort. Clear to auscultation bilaterally. No wheezes rales or rhonchi 6.GI: Soft, Nontender/Nondistended, No hepatosplenomegaly. No guarding or rebound. 7.MSK: Normocephalic/Atraumatic, Extremities w/o deformity or ttp No cyanosis or clubbing, Normal movement of all extremities 8.Skin: Warm, Dry. No rashes or lesions. 9.Neuro: staffing manager II-XII grossly intact. Sensation grossly intact, no focal neurologic deficits. 10.Psych: (AAO) x3. Appropriate mood and affect Course Vital Signs Vital signs: Vital Signs Temperature 37.5 C 07/06/22 23:04 Pulse 111 H 07/06/22 23:04 Respiratory Rate 18 07/06/22 23:04 Blood Pressure 172/88 H 07/06/22 23:04 Pulse Oximetry 100 07/06/22 23:04 Temperature 37.5 C 07/06/22 23:04 Temperature Source Skin 07/06/22 23:04 Pulse 111 H 07/06/22 23:04 Respiratory Rate 18 07/06/22 23:04 Blood Pressure 172/88 H 07/06/22 23:04 Blood Pressure Position Supine 07/06/22 23:04 Pulse Oximetry 100 07/06/22 23:04 Oxygen Delivery Method Room Air 07/06/22 23:04 Oxygen Flow Rate 0 07/06/22 23:04 Pain Level 1 07/06/22 23:04 Comment 07/06/22 23:04 Procedures Abscess I/D Site: Face Side (if applicable): Left Local Anesthetic: Lidocaine 1% and With Epi Amount of anesthesia used (mL): 5 Technique: Needle Aspiration Amount of fluid expressed (mL): 2 Packing used?: None
[2022-07-06] MEDS: Clindamycin 150 MG CAP, 12 CAPS/BTL 450 MG PO (23:39)
== END 2022-07-06 23:38 | disposition home or self-care (01) ==
PROVIDERS: Emergency Provider Student in an Organized Health Care Education/Training Program; PCP Nurse Practitioner Family
DX: J34.0 Abscess, furuncle and carbuncle of nose (principal); F17.200 Nicotine dependence, unspecified, uncomplicated; Z86.16 Personal history of COVID-19
CPT/HCPCS: 10060; 99283; 99284

== ENCOUNTER 2023-01-22 16:23 | Emergency (ER) | payer OTHER, SELFPAY ==
[2023-01-22 16:28] VITALS: BP 146/83; PULSE 96; RESP 18; TEMP 36.6; O2SAT 97
--- NOTE | 2023-01-22 18:15 | ED.GENADUL_ITS ---
Discharge Plan Disposition Patient Disposition: Home Discharge Details Clinical Impression: Sinusitis Primary Care Provider: Ermias Teague ED Provider: Karen Rosas Home Meds and New Rx's Prescriptions: New doxycycline monohydrate 100 mg tablet 100 mg PO BID Qty: 14 0RF Continued cephalexin 500 mg capsule 500 mg PO TID Qty: 21 0RF Patient Comments: not taking insulin aspart U-100 [Novolog FlexPen U-100 Insulin] 100 unit/mL (3 mL) insulin pen 5 unit subcut AC Qty: 15 8RF insulin glargine [Lantus Solostar U-100 Insulin] 100 unit/mL (3 mL) insulin pen 18 unit IM/SC BID Qty: 15 11RF TEST STRIPS 1 EACH strip 1 ea Miscellaneous BID Qty: 180 4RF Rx Instructions: Freestyle lite. Dx: 250.0 ascorbic acid (vitamin C) [Vitamin C] 500 MG tablet 1 tab PO DAILY fluticasone propionate 16 GM spray,suspension 1 - 2 spr NS DAILY PRNQty: 1 Rx Instructions: for post nasal drip glucosam-chond rr-orixsc-sj ac 1 EACH capsule 2 ea PO BID ENBREL SURECLICK 50 MG/1 ML PEN.INJCTR 50 mg SQ Weekly (DME) FreeStyle Chepe 2 Sensor Kit See Rx Instructions .ROUTE .MEDSUPPLY Qty: 2 12RF Rx Instructions: As directed mupirocin 2 % ointment 1 applic topical TID Qty: 22 0RF Rx Instructions: Using a Q-tip apply a small amount to each nostril three times a day. You may also apply this to any open wounds. metformin 1,000 mg tablet 1,000 mg PO BID Qty: 180 4RF (DME) pen needle, diabetic 32 gauge x / needle See Rx Instructions .ROUTE .COMPLEX Qty: 100 0RF Dose Instruction: USE ONCE DAILY Rx Instructions: USE ONCE DAILY (DME) pen needle, diabetic [Novofine 32] 32 gauge x 1/4 needle 1 ea Miscellaneous DAILY Qty: 360 3RF Rx Instructions: as needed. variable Jardiance 25 mg tablet 25 mg PO DAILY Qty: 90 1RF acetaminophen 500 mg tablet 500 mg PO Q6H PRN PRN (Reason: pain) Qty: 40 3RF omeprazole 20 mg Capsule,Delayed Release(Dr/Ec) 20 mg PO BID Discharge Instructions Instructions: Sinusitis (ED) Additional Instructions: increased fluids hot tea with honey and lemon tylenol as needed for pain antibiotic as prescribed yogurt daily while on antibiotic Referrals: Ermias Teague, LEASING COORDINATOR [Primary Care Provider] - Medical Decision Making This 57-year-old male presents with upper respiratory congestion Afebrile and nontoxic, while he is immunosuppressed and does have a history of diabetes Patient does appear quite well, his vitals are stable I will treat him with doxycycline as he has been sick for approximately 14 days empirically for sinusitis He is aware that this is not typical management, however given his immunosuppressed state, diabetes and persistence of symptoms, he will be placed on doxycycline we will take supportive care at home Return precautions reviewed and patient expressed understanding Medical Records Medical records reviewed: Yes I reviewed the patient's medical records. Lab Data Lab results reviewed: Yes I reviewed the patient's lab results. HPI General Date/Time Provider Initiated Documentation: 01/22/23 16:52 . HPI Narrative: This 57-year-old gentleman with history of psoriatic arthritis and insulin- dependent diabetes presents with upper respiratory congestion and upset stomach for the past 4 days. Denies any nausea, chest pain, shortness of breath. Denies any fever or chills. Denies known sick contacts. Related Data Home Medications Medication Instructions Recorded Confirmed ascorbic acid (vitamin C) 500 mg 1 tab PO DAILY 06/02/15 01/22/23 tablet (Vitamin C) fluticasone propionate 50 1 - 2 spr NS DAILY PRN ##1 10/15/15 01/22/23 mcg/actuation nasal spray,suspension fujcxiybqg-eqiaijwxhy-vgdfvhwy-hyalur 2 ea PO BID 09/30/17 01/22/23 ac 375 mg-300 mg-175 mg-2 mg cap Enbrel Sureclick 50 mg SQ Weekly 12/09/17 01/22/23 flash glucose sensor (FreeStyle #2 ea 03/20/21 01/22/23 Chepe 2 Sensor kit) mupirocin 2 % topical ointment 1 applic topical TID MRSA Home 03/29/21 12/26/22 Eradication #22 grams metformin 1,000 mg tablet 1,000 mg PO BID #180 tab-caps 11/16/21 01/22/23 pen needle, diabetic 32 gauge x #100 ea 12/26/21 01/22/23 acetaminophen 500 mg tablet 500 mg PO Q6H PRN PRN pain #40 tabs 12/31/21 01/22/23 pen needle, diabetic 32 gauge x #360 units 02/08/22 01/22/23 1/ (Novofine 32) omeprazole 20 mg capsule,delayed 20 mg PO BID 05/30/22 01/22/23 release insulin glargine 100 unit/mL (3 18 unit (0.18 mL) IM/SC BID #15 mL 08/29/22 01/22/23 mL) subcutaneous pen (Lantus Solostar U-100 Insulin) empagliflozin 25 mg tablet 25 mg PO DAILY #90 tab-caps 10/02/22 01/22/23 (Jardiance) cephalexin 500 mg capsule 500 mg PO TID #21 caps 12/05/22 12/26/22 insulin aspart U-100 100 unit/mL 5 unit (0.05 mL) subcut AC #15 mL 12/05/22 01/22/23 (3 mL) subcutaneous pen (Novolog FlexPen U-100 Insulin aspart) doxycycline monohydrate 100 mg 100 mg PO BID #14 tabs 01/22/23 tablet Previous Rx's Medication Instructions Recorded flash glucose sensor (FreeStyle #2 ea 03/20/21 Chepe 2 Sensor kit) mupirocin 2 % topical ointment 1 applic topical TID MRSA Home 03/29/21 Eradication #22 grams metformin 1,000 mg tablet 1,000 mg PO BID #180 tab-caps 11/16/21 pen needle, diabetic 32 gauge x #100 ea 12/26/21 acetaminophen 500 mg tablet 500 mg PO Q6H PRN PRN pain #40 tabs 12/31/21 pen needle, diabetic 32 gauge x #360 units 02/08/22 1 (Novofine 32) insulin glargine 100 unit/mL (3 18 unit (0.18 mL) IM/SC BID #15 mL 08/29/22 mL) subcutaneous pen (Lantus Solostar U-100 Insulin) empagliflozin 25 mg tablet 25 mg PO DAILY #90 tab-caps 10/02/22 (Jardiance) cephalexin 500 mg capsule 500 mg PO TID #21 caps 12/05/22 insulin aspart U-100 100 unit/mL 5 unit (0.05 mL) subcut AC #15 mL 12/05/22 (3 mL) subcutaneous pen (Novolog FlexPen U-100 Insulin aspart) doxycycline monohydrate 100 mg 100 mg PO BID #14 tabs 01/22/23 tablet Allergies Allergy/AdvReac Type Severity Reaction Status Date / Time Sulfa (Sulfonamide AdvReac Intermediate NAUSEA Verified 01/22/23 16:30 Antibiotics) DUST Allergy Intermediate NASAL Uncoded 01/22/23 16:30 CONGESTION General Stated Complaint: GenMedical MARIA GUADALUPE: 4 PFSH All Active Problems (Updated 01/22/23 @ 18:19 by IDALIA Rivera) Sinusitis (Acute) Abscess (Acute) Pes planus of both feet (Acute) Soft tissue infection (Acute) Psoriatic arthritis (Acute) Psoriasis (Chronic) embrel-Dr Schmidt, Derm. 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 (Acute) Abscess of right index finger (Acute) COVID-19 (Acute) 07/2021 uri symptoms Gastroesophageal reflux disease with esophagitis (Chronic 08/09/15) 11/2021- EGD with bx-Barretts esophagus, due 2024, Dr Matthews-[facility] History of tobacco use (Acute) Insulin dependent type 2 diabetes mellitus, uncontrolled (Chronic) Medical History Abscess of right ring finger Anemia (08/18/15) iron deficiency extensive GI workup. [place] [facility] [place] idiopathic but perhaps occult GI bleed Arthritis (10/02/12) PSORIATIC Cataract O.D. Cellulitis of right ring finger (~02/20/21) COVID 08/16 breakthrough infection-Mild symptoms: coughing, sneezing, mild congestion DVT prophylaxis Gout (08/26/12) Hx of scoliosis Idiopathic scoliosis Diamond Moreno placed at age 15; chest deformity; likely restrictive lung disease Male infertility Osteoporosis (08/18/15) Peptic reflux disease Psoriasis Psoriatic arthritis (10/02/12) Right flank pain Stress reaction, emotional Umbilical pain Weight loss Surgical History EGD - MAC (~11/2021) EGD/COLO (08/09/15) MICHAEL MATTHEWS Extraction of cataract (~2009) History of cataract removal with insertion of prosthetic lens spinal canal structure surgery diamond moreno placed age 15 Family History Mother , age 62 Breast cancer Father , age 65 COPD (chronic obstructive pulmonary disease) Brother No problems noted. Maternal Grandfather Myocardial infarction Paternal Grandfather Myocardial infarction Maternal Grandmother No problems noted. Paternal Grandmother Myocardial infarction Brother No problems noted. Brother No problems noted. Brother No problems noted. Son Adopted Daughter Adopted Social History Smoking/Tobacco Use Status: Current-Occasional Tobacco Type: cigarettes Tobacco: How many years used: 5 Second Hand Exposure: Yes Smoking risk assessment performed?: Yes Alcohol Intake: former Drug use: Never Substance use type: does not use Caregiver/Support person: No Household members: spouse Housing: apartment Communication Needs: None Do you need help understanding health information?: Never current occupation: [employer] Pets and animals: No Sexually active: No Do you think of yourself as: straight/heterosexual Current gender identity: male What is your relationship status?: How often do you talk on the phone with friends or family?: once per week How often do you get together with friends or relatives?: once per week Do you belong to any clubs or organized social groups?: yes Panel score (0-1 are the most socially isolated patients): 2 What type of physical activity do you participate in: walking and decline to answer Duration: > 90 minutes/day Frequency: daily Sandrita/Moravian: None Special sandrita needs: No Seatbelt use: always Helmet use: No Drive intox or ride w/intox 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 Do you feel safe at home: Yes Do you feel safe in your relationship?: Yes Exam Narrative Exam Narrative: Patient is calm, cooperative, moist mucous membranes, boggy nasal mucosa, ma xillary sinus tenderness, ethmoid sinus tenderness, pupils equal round reactive to light and accommodation, no meningismus, lungs clear to auscultation, cardiac rate rhythm regular, no abdominal tenderness on exam, no pallor, fully alert and oriented Course Vital Signs Vital signs: Vital Signs Temperature 36.6 C 01/22/23 16:28 Pulse 96 H 01/22/23 16:28 Respiratory Rate 18 01/22/23 16:28 Blood Pressure 146/83 H 01/22/23 16:28 Pulse Oximetry 97 01/22/23 16:28 Temperature 36.6 C 01/22/23 16:28 Temperature Source Tympanic 01/22/23 16:28 Pulse 96 H 01/22/23 16:28 Respiratory Rate 18 01/22/23 16:28 Respiratory Effort Normal, Non-Labored 01/22/23 16:30 Blood Pressure 146/83 H 01/22/23 16:28 Pulse Oximetry 97 01/22/23 16:28 Oxygen Delivery Method Room Air 01/22/23 16:28 Oxygen Flow Rate 0 01/22/23 16:28
[2023-01-22 18:22] VITALS: RESP 18
[2023-01-22 18:23] VITALS: BP 127/85; PULSE 75; RESP 18; O2SAT 98
== END 2023-01-22 18:22 | disposition home or self-care (01) ==
PROVIDERS: Emergency Provider Physician Assistant; PCP Nurse Practitioner Family
DX: J01.90 Acute sinusitis, unspecified (principal)
CPT/HCPCS: 87426; 99283

== ENCOUNTER 2023-04-03 20:35 | Outpatient (REF) | payer OTHER, SELFPAY ==
[2023-04-03 20:55] LABS: COMMENT (LAB VIEW ONLY) 82.87 mg/dL; Microalb ug/mg Crea 32.3 ug/mg Cr
== END 2023-04-03 20:36 | disposition home or self-care (01) ==
LOC: LBN 20:35
PROVIDERS: PCP Nurse Practitioner Family; Visit Provider Nurse Practitioner Family
DX: E11.9 Type 2 diabetes mellitus without complications (principal)
CPT/HCPCS: 82043; 82570

== ENCOUNTER 2023-11-03 16:47 | Outpatient (CLI) | payer OTHER, SELFPAY ==
[2023-11-05 12:50] LABS: TB Interpretation Negative (Negative); TB1 Ag minus Nil 0.01 IU/ml; TB2 Ag minus Nil 0.02 IU/mL
== END 2023-11-03 16:48 | disposition home or self-care (01) ==
LOC: LBO 16:49
PROVIDERS: PCP Nurse Practitioner Family; Visit Provider Dermatology
DX: Z79.899 Other long term (current) drug therapy (principal)
CPT/HCPCS: 36415; 86480

== ENCOUNTER 2023-11-08 14:57 | Emergency (ER) | payer OTHER, SELFPAY ==
[2023-11-08] VITALS (22 sets, daily range): BP systolic 131–175; BP diastolic 83–104; PULSE 102–132; RESP 13–26; TEMP 36.2; O2SAT 97–100
--- NOTE | 2023-11-08 14:45 | RT.EKG_ITS ---
APPROVED REPORT Exam: Resting ECG Reason for Exam: Chest Pain/SOB Patient Location: E HR:107 bpm ECG Measurements Heart Rate 107 AXIS KS 199 P 55 QRSd 95 QRS 93 QT 314 T 48 QTc 418 Conclusion Sinus tachycardia...rate> 99 Ventricular premature complex...V complex w/ short R-R interval Borderline prolonged KS interval...KS >197, V-rate 91-120 Left atrial enlargement...P, P'>60mS, <-0.15mV V1 Inferoposterior infarct, acute...ST>.1 inf, <-.1 V1-3 or >.05 V7-9 STEMI
--- NOTE | 2023-11-08 15:00 | DI.RAD_ITS ---
Exam(s) XR PORTABLE CHEST AP EXAM: XR PORTABLE CHEST AP CLINICAL HISTORY: Chest Pain. TECHNIQUE: 2D digital imaging was performed. COMPARISON: CR XR PORTABLE CHEST AP from 02/22/2021 FINDINGS: Single AP portable view. Heart size is upper normal. The mediastinum is not widened. Lungs are clear. No infiltrates nor obvious pleural effusions. Adorno dominguez in the thoracolumbar spine noted. Scoliosis again evident. IMPRESSION: No acute pulmonary findings on this single AP portable view of the chest. DATA REPOSITORY: RADIATION DOSE DELIVERED:
--- NOTE | 2023-11-08 15:13 | W.ED.GENAD ---
HPI General Stated Complaint: Chest Pain Mode of arrival: ambulatory. MARIA GUADALUPE: 2 Date/Time Provider Initiated Documentation: 11/08/23 14:58. Limitations to Documentation: no limitations. Information obtained by: patient. History of Present Illness chest pressure moderate other (pressure) chest reports no radiation day(s) (1) constant No relieving factors improve symptom(s), No exacerbating factors reported no other symptoms. none Related Data Home Medications Medication Instructions Recorded Confirmed ascorbic acid (vitamin C) 500 mg 1 tab PO DAILY 06/02/15 11/08/23 tablet (Vitamin C) fluticasone propionate 50 1 - 2 spr NS DAILY PRN ##1 10/15/15 11/08/23 mcg/actuation nasal spray,suspension tnhfwjphhl-iuewxmcbdr-ohzlnyel-hyalur 2 ea PO BID 09/30/17 11/08/23 ac 375 mg-300 mg-175 mg-2 mg cap Enbrel Sureclick 50 mg SQ Weekly 12/09/17 11/08/23 flash glucose sensor (FreeStyle #2 ea 03/20/21 11/08/23 Chepe 2 Sensor kit) mupirocin 2 % topical ointment 1 applic topical TID MRSA Home 03/29/21 11/08/23 Eradication #22 grams pen needle, diabetic 32 gauge x #100 ea 12/26/21 11/08/23 acetaminophen 500 mg tablet 500 mg PO Q6H PRN PRN pain #40 tabs 12/31/21 11/08/23 omeprazole 20 mg capsule,delayed 20 mg PO BID 05/30/22 11/08/23 release insulin aspart U-100 100 unit/mL 5 unit (0.05 mL) subcut AC #15 mL 12/05/22 11/08/23 (3 mL) subcutaneous pen (Novolog FlexPen U-100 Insulin aspart) empagliflozin 25 mg tablet 25 mg PO DAILY #90 tab-caps 03/27/23 11/08/23 (Jardiance) metformin 1,000 mg tablet 1,000 mg PO BID #180 tab-caps 03/27/23 11/08/23 pen needle, diabetic 32 gauge x #360 units 06/09/23 11/08/23 1/4 (Novofine 32) insulin glargine 100 unit/mL (3 22 unit (0.22 mL) IM/SC BID #40 mL 11/20/23 01/13/24 mL) subcutaneous pen (Lantus Solostar U-100 Insulin) benzonatate 100 mg capsule 100 mg PO TID PRN cough #90 caps 10/06/23 11/08/23 Previous Rx's Medication Instructions Recorded flash glucose sensor (FreeStyle #2 ea 03/20/21 Chepe 2 Sensor kit) mupirocin 2 % topical ointment 1 applic topical TID MRSA Home 03/29/21 Eradication #22 grams pen needle, diabetic 32 gauge x #100 ea 12/26/21 acetaminophen 500 mg tablet 500 mg PO Q6H PRN PRN pain #40 tabs 12/31/21 insulin aspart U-100 100 unit/mL 5 unit (0.05 mL) subcut AC #15 mL 12/05/22 (3 mL) subcutaneous pen (Novolog FlexPen U-100 Insulin aspart) empagliflozin 25 mg tablet 25 mg PO DAILY #90 tab-caps 03/27/23 (Jardiance) metformin 1,000 mg tablet 1,000 mg PO BID #180 tab-caps 03/27/23 pen needle, diabetic 32 gauge x #360 units 06/09/2310/30 (Novofine 32) insulin glargine 100 unit/mL (3 22 unit (0.22 mL) IM/SC BID #40 mL 09/15/23 mL) subcutaneous pen (Lantus Solostar U-100 Insulin) benzonatate 100 mg capsule 100 mg PO TID PRN cough #90 caps 10/06/23 Allergies Allergy/AdvReac Type Severity Reaction Status Date / Time Sulfa (Sulfonamide AdvReac Intermediate NAUSEA Verified 11/08/23 15:05 Antibiotics) DUST Allergy Intermediate NASAL Uncoded 11/08/23 15:05 CONGESTION Review of Systems All systems reviewed & are unremarkable except as noted in HPI and below Constitutional Constitutional: Denies chills and Denies fever(s) Cardiovascular Cardiovascular: Reports chest pain and Denies dyspnea Respiratory Respiratory: Denies cough and Denies dyspnea Gastrointestinal Gastrointestinal: Denies abdominal pain, Denies nausea and Denies vomiting Musculoskeletal Musculoskeletal: Denies joint swelling PFSH All Active Problems (Updated 11/08/23 @ 15:41 by Kyle Yi MD) ST elevation (STEMI) myocardial infarction (Acute) Scoliosis (Acute) Pes planus of both feet (Acute) Psoriatic arthritis (Acute) Psoriasis (Chronic) embrel-Dr Schmidt, Derm. 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 (Acute) Gastroesophageal reflux disease with esophagitis (Chronic 08/09/15) 11/2021- EGD with bx-Barretts esophagus, due 2024, Dr Matthews-[facility] History of tobacco use (Acute) Insulin dependent type 2 diabetes mellitus, uncontrolled (Chronic) Medical History (Updated 11/08/23 @ 15:41 by Kyle Yi MD) COVID-19 07/2021 uri symptoms Hx of scoliosis COVID 08/16 breakthrough infection-Mild symptoms: coughing, sneezing, mild congestion Umbilical pain Right flank pain Abscess of right ring finger Cellulitis of right ring finger (~02/20/21) Weight loss Stress reaction, emotional Psoriatic arthritis (10/02/12) Psoriasis Peptic reflux disease Osteoporosis (08/18/15) Male infertility Idiopathic scoliosis Adorno Moreno placed at age 15; chest deformity; likely restrictive lung disease Gout (08/26/12) Cataract O.D. Arthritis (10/02/12) PSORIATIC Anemia (08/18/15) iron deficiency extensive GI workup. Seen Heme at [facility]. idiopathic but perhaps occult GI bleed Surgical History History of cataract removal with insertion of prosthetic lens spinal canal structure surgery adorno moreno placed age 15 EGD/[facility] (08/09/15) [facility] MATTHEWS EGD - MAC (~11/2021) Extraction of cataract (~2009) Family History Mother , age 62 Breast cancer Father , age 65 COPD (chronic obstructive pulmonary disease) Brother No problems noted. Maternal Grandfather Myocardial infarction Paternal Grandfather Myocardial infarction Maternal Grandmother No problems noted. Paternal Grandmother Myocardial infarction Brother No problems noted. Brother No problems noted. Brother No problems noted. Son Adopted Daughter Adopted Social History Smoking/Tobacco Use Status: Current-Occasional Tobacco Type: cigars Tobacco: How many years used: 5 Second Hand Exposure: Yes Smoking risk assessment performed?: Yes Alcohol Intake: former Drug use: Never Substance use type: does not use Caregiver/Support person: No Household members: spouse Housing: apartment Communication Needs: None Do you need help understanding health information?: Never current occupation: [employer] Pets and animals: No Sexually active: No Do you think of yourself as: straight/heterosexual Current gender identity: male What is your relationship status?: How often do you talk on the phone with friends or family?: once per week How often do you get together with friends or relatives?: once per week Do you belong to any clubs or organized social groups?: yes Panel score (0-1 are the most socially isolated patients): 2 What type of physical activity do you participate in: walking and decline to answer Duration: > 90 minutes/day Frequency: daily Sandrita/Worship: None Special sandrita needs: No Seatbelt use: always Helmet use: No Drive intox or ride w/intox emergency detail driver: No Do you feel safe at home: Yes Do you feel safe in your relationship?: Yes Exam Const General: no acute distress Orientation: alert HENMT Head: normal to inspection Ears: external ears normal General nose exam: external nose normal Mouth: moist mucous membranes Eyes General: appearance normal, both eyes and all related structures Neck Neck: normal visual inspection Resp Effort & Inspection: normal respiratory effort and able to speak in complete sentences Auscultation: clear to auscultation bilaterally Cardio Jugular venous pressure: no JVD Rate: regular rate Heart Sounds: no murmurs Skin General skin exam: no rashes or lesions noted Neuro General: patient alert and patient oriented x3 Extrem General: normal to inspection, capillary refill normal, no edema and other (no calf tenderness) Psych Mental Status: mental status grossly normal Course Vital Signs Vital signs: Vital Signs Pulse 102 H 11/08/23 14:59 Respiratory Rate 16 11/08/23 14:59 Blood Pressure 138/86 11/08/23 14:59 Pulse Oximetry 100 11/08/23 14:59 Pulse 102 H 11/08/23 14:59 Respiratory Rate 16 11/08/23 14:59 Blood Pressure 138/86 11/08/23 14:59 Blood Pressure Position Sitting 11/08/23 14:59 Pulse Oximetry 100 11/08/23 14:59 Oxygen Delivery Method Room Air 11/08/23 14:59 Oxygen Flow Rate 0 11/08/23 14:59 Pain Level 4 11/08/23 14:59 Medical Decision Making 57 yo male with hx of smoking, diabetes, no prior known cardiac disease comes in with chest pressure since yesterday. Denies fevers, chills, vomiting, dyspnea. HE is hemodynamically stable on arrival, EKG does show inferior stemi. He has clear lungs, no jvd, no calf tenderness, equal peripheral pulses bilaterally. Will initiate heparin, aspirin, plavix, given he has had pain for over 12 hours will hold on lytics until consult with cards at [facility] and the call for the consult was placed immediately after my initial assessment and exam. Given lack of signs of lower extremity dvt and no hypoxia or pleuritic chest pain doubt PE and no tearing back pain and equal peripheral pulses so doubt dissection at this time Pt stable feels better after fentanyl, spoke with Dr. Espinosa creative services specialist at [facility] who reviewed case, agreed with heparin, aspirin and 300mg plavix. AFter discussing the case and since he doesn't have significant q waves they recommend giving TNK. Discussed with pt and no contraindications to this and he gives consent to having this after discussing risks/benefits and has decision making capacity. Unfortunately [facility] is not flying due to weather and their ground transport is not available. Will see if local ems is available to transport. Dr. Wynne is the accepting brokerage manager nurse will transport with nelliex down to [facility], pt's vitals stable and states chest pressure improved. Differential Diagnosis Differential Diagnosis: stemi, acs Imaging Data Radiologic Study: Attestation: I personally reviewed and interpreted this imaging study as follows: Imaging: X-Ray Radiologist's impression: no acute findings Lab Data Lab results reviewed: Yes I reviewed the patient's lab results. ECG Data Attestation: I personally reviewed and interpreted this ECG (s) as follows: Prior ECG tracings: available for review Interpretation: sinus tach, rate of 107, pr 199, STEMI with elevations in II, III, aVF 2nd ekg sinus tach rate of 120 continued stemi in II III avf Quality:SDOH Health Related Social Needs: No Data to Display Critical Care Time Critical Care Time Critical Care Time: Yes Total Critical Care Time: 60 (minutes) Attestation: Time spent on frequent reassessments, hemodynamic monitoring, lab review, and administering lytics to a patient with a STEMI and potential to deteriorate at any time Discharge Plan Disposition Specific Acute Inpt Facility: [facility] Condition: Critical Discharge Details Chief Complaint: Chest Pain Clinical Impression: ST elevation (STEMI) myocardial infarction Primary Care Provider: Ermias Teague ED Provider: Kyle Yi [place] Meds and New Rx's Prescriptions: No Action insulin aspart U-100 [Novolog FlexPen U-100 Insulin] 100 unit/mL (3 mL) insulin pen 5 unit subcut AC Qty: 15 8RF benzonatate 100 mg capsule 100 mg PO TID PRN (Reason: cough) Qty: 90 1RF TEST STRIPS 1 EACH strip 1 ea Miscellaneous BID Qty: 180 4RF Rx Instructions: Freestyle lite. Dx: 250.0 ascorbic acid (vitamin C) [Vitamin C] 500 MG tablet 1 tab PO DAILY fluticasone propionate 16 GM spray,suspension 1 - 2 spr NS DAILY PRNQty: 1 Rx Instructions: for post nasal drip glucosam-chond ro-dehuws-kn ac 1 EACH capsule 2 ea PO BID ENBREL SURECLICK 50 MG/1 ML PEN.INJCTR 50 mg SQ Weekly (DME) FreeStyle Chepe 2 Sensor Kit See Rx Instructions .ROUTE .MEDSUPPLY Qty: 2 12RF Rx Instructions: As directed mupirocin 2 % ointment 1 applic topical TID Qty: 22 0RF Rx Instructions: Using a Q-tip apply a small amount to each nostril three times a day. You may also apply this to any open wounds. (DME) pen needle, diabetic 32 gauge x 5/32 needle See Rx Instructions .ROUTE .COMPLEX Qty: 100 0RF Dose Instruction: USE ONCE DAILY Rx Instructions: USE ONCE DAILY Jardiance 25 mg tablet 25 mg PO DAILY Qty: 90 3RF metformin 1,000 mg tablet 1,000 mg PO BID Qty: 180 4RF (DME) pen needle, diabetic [Novofine 32] 32 gauge x 1/4 needle 1 ea Miscellaneous DAILY Qty: 360 3RF Rx Instructions: as needed. variable insulin glargine [Lantus Solostar U-100 Insulin] 100 unit/mL (3 mL) insulin pen 22 unit IM/SC BID Qty: 40 3RF acetaminophen 500 mg tablet 500 mg PO Q6H PRN PRN (Reason: pain) Qty: 40 3RF omeprazole 20 mg Capsule,Delayed Release(Dr/Ec) 20 mg PO BID Discharge Data Discharge Date/Time-TO BE ENTERED AT DEPARTURE: 11/08/23 16:48
[2023-11-08] MEDS: Heparin in 0.45% NaCl 25,000 UNIT/250 ML BAG 7.5 UNIT IV (15:24)
[2023-11-08] MEDS: fentaNYL 100 MCG/2 ML VIAL 50 MCG IVP (15:24)
[2023-11-08 15:25] LABS: Abs Immature Grans 0.08 10^3/uL (0.0-0.06); Absolute Basophil Count 0.05 10^3/uL (0.0-0.2); Absolute Eosinophil Count 0.02 10^3/uL (0.0-0.7); Absolute Lymphocyte Count 1.62 10^3/uL (1.2-3.4); Absolute Monocyte Count 1.16 10^3/uL (0.1-0.8); Absolute Neutrophil Count 13.24 10^3/uL (1.2-6.7); Basophils % 0.3; Eosinophils % 0.1; HCT 38.9 % (40.0-50.0); HGB 12.2 g/dL (13.5-17.5); Immature Grans % 0.5; MCH 23.7 pg (27.0-33.0); MCHC 31.4 % (32.0-36.0); MCV 76 fL (80-95); MPV 8.6 fL (8.0-11.0); Monocytes % 7.2; Neutrophils % 81.9; Platelet Count 403 10^3/uL (130-400); RBC 5.14 10^6/uL (4.36-5.78); RDW 15.1 % (11.8-14.1); RDW-SD 41.4 fL; WBC 16.17 10^3/uL (4.4-10.8)
[2023-11-08] MEDS: Aspirin 81 MG CHEW 324 MG CH (15:25)
--- NOTE | 2023-11-08 15:28 | DI.VRAD_ITS ---
PROCEDURE INFORMATION: Exam: XR Chest Exam date and time: 11/08/2023 3:12 PM Age: 57 years old Clinical indication: Other: Unspecified; Patient HX: Chest pain TECHNIQUE: Imaging protocol: Radiologic exam of the chest. Views: 1 view. COMPARISON: CR XR PORTABLE CHEST AP 02/22/2021 8:12 AM FINDINGS: Lungs: Unremarkable. No consolidation. Pleural spaces: Unremarkable. No pleural effusion. No pneumothorax. Heart/Mediastinum: Unremarkable. No cardiomegaly. Bones/joints: Thoracic spine vertical rods. Thoracic spine scoliosis. IMPRESSION: No acute cardiopulmonary findings. Dictated and Authenticated by: Mario Dumas MD. Ordering:DANUTA Schaefer MD
--- NOTE | 2023-11-08 15:30 | RT.EKG_ITS ---
APPROVED REPORT Exam: Resting ECG Reason for Exam: chest pain Patient Location: E HR:121 bpm ECG Measurements Heart Rate 121 AXIS KS 188 P 62 QRSd 100 QRS 77 QT 306 T 45 QTc 434 Conclusion Sinus tachycardia...rate> 99 Left atrial enlargement...P, P'>60mS, <-0.15mV V1 Inferoposterior infarct, acute...ST>.1 inf, <-.1 V1-3 or >.05 V7-9
[2023-11-08 15:39] LABS: PTT Activated 23.2 sec (23.6-32.8); Prothrombin Time 10.4 sec (9.1-11.1)
[2023-11-08] MEDS: Tenecteplase 50 MG KIT 35 MG IVP (15:44)
[2023-11-08] MEDS: Clopidogrel 300 MG TAB PO (15:44)
[2023-11-08 15:50] LABS: ALT 71 U/L (16-63); AST 399 U/L (15-37); Albumin 4.1 g/dL (3.4-5.0); Alkaline Phosphatase 115 U/L (46-116); Anion Gap 10.6 mmol/L (3-11); BUN 23 mg/dL (7-18); Bilirubin, Total 0.5 mg/dL (0.2-1.0); CO2 26.4 mmol/L (21.0-32.0); CREATININE 1.4 mg/dL (0.70-1.30); Calcium 9.6 mg/dL (8.5-10.1); Chloride 100 mmol/L (98-107); Estimated GFR 58.99 (mL/min/1.73m2); Glucose 168 mg/dL (74-106); Magnesium 1.8 mg/dL (1.8-2.4); NT-proBNP 1312 pg/mL (<300); Potassium 4.1 mmol/L (3.5-5.1); Sodium 137 mmol/L (136-145); Total Protein 7.8 g/dL (6.4-8.2)
== END 2023-11-08 16:48 ==
LOC: ER 15:09
PROVIDERS: Registered Nurse Emergency; Emergency Provider Emergency Medicine; PCP Nurse Practitioner Family
DX: I21.4 Non-ST elevation (NSTEMI) myocardial infarction (principal); E11.9 Type 2 diabetes mellitus without complications; F17.290 Nicotine dependence, other tobacco product, uncomplicated; Z79.4 Long term (current) use of insulin; Z79.84 Long term (current) use of oral hypoglycemic drugs; R79.89 Other specified abnormal findings of blood chemistry
CPT/HCPCS: 80053; 93005; 99285; 71045; 83735; 83880; 84484; 85025; 85610; 85730; 93010; J1644; J3010; J3101

== ENCOUNTER 2023-11-26 09:17 | Outpatient (RCR) | payer OTHER, SELFPAY ==
--- NOTE | 2023-11-17 12:15 | RT.EKG_ITS ---
APPROVED REPORT Exam: Resting ECG Reason for Exam: Baseline Patient Location: O HR:99 bpm ECG Measurements Heart Rate 99 AXIS AZ 205 P 36 QRSd 96 QRS 255 QT 331 T 18 QTc 425 Conclusion Sinus rhythm...normal P axis, V-rate 50- 99 Prolonged AZ interval...AZ >205, V-rate 91-120 Probable left atrial enlargement...P >50mS, <-0.10mV V1 Abnormal R-wave progression, early transition...QRS area>0 in V2 Inferior infarct, acute (LCx)...ST>0.10mV, II III aVF, STd V1-V3 I have reviewed and interpreted ECG and agree with software generated interpretation.
== END 2023-11-26 23:59 | disposition home or self-care (01) ==
LOC: CR 09:17
PROVIDERS: PCP Nurse Practitioner Family; Visit Provider Internal Medicine Interventional Cardiology
DX: I25.2 Old myocardial infarction (principal); Z95.5 Presence of coronary angioplasty implant and graft; Z51.89 Encounter for other specified aftercare
CPT/HCPCS: S9472

== ENCOUNTER 2023-12-22 09:00 | Outpatient (RCR) | payer OTHER, SELFPAY | END 2023-12-25 23:59 | disposition home or self-care (01) | LOC: CR 09:00 | PROVIDERS: PCP Nurse Practitioner Family; Visit Provider Internal Medicine Cardiovascular Disease | DX: I25.2 Old myocardial infarction (principal); Z95.5 Presence of coronary angioplasty implant and graft; Z51.89 Encounter for other specified aftercare | CPT/HCPCS: S9472 ==

== ENCOUNTER 2024-01-23 09:00 | Outpatient (RCR) | payer OTHER, SELFPAY | END 2024-01-25 23:59 | disposition home or self-care (01) | LOC: CR 09:00 | PROVIDERS: PCP Nurse Practitioner Family; Visit Provider Internal Medicine Cardiovascular Disease | DX: I21.4 Non-ST elevation (NSTEMI) myocardial infarction (principal); Z51.89 Encounter for other specified aftercare | CPT/HCPCS: S9472 ==

== ENCOUNTER 2024-02-20 08:56 | Outpatient (RCR) | payer OTHER, SELFPAY | END 2024-02-24 23:59 | disposition home or self-care (01) | LOC: CR 08:56 | PROVIDERS: PCP Nurse Practitioner Family; Visit Provider Internal Medicine Cardiovascular Disease | DX: I21.4 Non-ST elevation (NSTEMI) myocardial infarction (principal); Z95.5 Presence of coronary angioplasty implant and graft; Z51.89 Encounter for other specified aftercare | CPT/HCPCS: S9472 ==

== ENCOUNTER 2024-10-08 00:32 | Outpatient (CLI) | payer OTHER, SELFPAY ==
--- OUTSIDE RECORDS SUMMARY | 2024-10-08 00:35 | XMS_ITS | Encounter Summary ---
Author Organization [facility] Address [facility] [place] [address] Care Team Providers Care Wireless Architect Name Role Phone HoLamaikel Pope APRN Primary Care Provider [phone] Reason for Visit * Reason Comments Medication Refill Encounter Details Date Type Department Care Team (Late st Contact Info) Description 06/15/2024 Refill Cardiology at [address] [place] [address] Benjie Garrison MD [facility] [address] Medication Refill Social History Tobacco Use Types Packs/Day Years Used Date Smoking Tobacco: Former Cigarettes Q uit: 12/27/1988 Smokeless Tobacco: Never Alcohol Use Standard Drinks/Week Comments No 0 (1 standard drink = 0.6 oz pur e alcohol) [facility] Utilities Answer Date Recorded In the past 12 months has [employer] electric, gas, oil, or water company threatened to shut off services in your home? No 11/10/2023 Hunger Vital Sign Answer Date Recorded Within the past 12 months, y ou worried that your food would run out before you got the money to buy more. Never true 11/10/19 24 Within the past 12 months, t he food you bought just didn't last and you didn't have money to get more. Never true 11/10/2023 PRAPARE - Transportation Answer Date Re corded In the past 12 months, has l ack of transportation kept you from medical appointments or from getting medications? No 10/27 In the past 12 months, has l ack of transportation kept you from meetings, work, or from getting things needed for daily living? No 11/10/2023 Housing Stability Vital Sign Answer Flaco e Recorded In the last 12 months, was t here a time when you were not able to pay the mortgage or rent on time? No 11/10/2023 In the last 12 months, how many places have you lived? 1 11/10/2023 In the last 12 months, was t here a time when you did not have a steady place to sleep or slept in a fpc (including now)? No 11/10/2023 DH IPV Inpatient Questions Answer Date Recorded Does Anyone Try to Keep You From Having Contact with Others or Doing Things Outside Your Home? no 11/08/2023 Feels Threatened by Someone no 10/27 Feels Unsafe at Home or Work/School no 11/08/2023 Physical Signs of Abuse Present no 11/08/2023 Sex and Gender Information Value Date Recorded Sex Assigned at Not on file Gender Identity Not on file Sexual Orientation Not on file documented as of this encounter Plan of Treatment Upcoming Encounters Date Type Department Care Team (Late st Contact Info) Description 11/08/2024 3:30 PM EST Office Visit Dermatology at [address] [phone] Prosper Schmidt MD [address] [place] [address], [facility] [place] [address] 12/14/2024 2:40 PM EST Office Visit Cardiology at [address] [phone] Benjie Garrison MD [facility] [place] [address] documented as of this encounter Visit Diagnoses Diagnosis ASCVD (arteriosclerotic cardiovascular disease) Unspecified cardiovascular disease documented in this encounter Care Teams Wireless Architect Relationship Specialty Start Date End Date Ermias Teague, PETRA [address] [place] [address] PCP - General Family Medicine 10/01/22 documented as of this encounter
--- OUTSIDE RECORDS SUMMARY | 2024-10-08 00:35 | XMS_ITS | Data Portability ---
Author Organization [facility] [place] [address] Assessment No assessment recorded. Plan of Treatment Reminders Order Date Submit Date Provider Last Modified By Organization Details Last Modified Time Details Appointments None recorded. Lab None recorded. Referral None recorded. Procedures None recorded. Surgeries None recorded. Imaging None recorded. Medication Orders Augmentin 875 mg-125 mg tablet 2023 024 [facility], [address] [place], [address], 4 14:21:18 amoxicillin 875 mg-potassiu m clavulanate 125 mg tablet 2023 024 [facility], [address] [place], [address], 4 14:57:07 Patient TargetsNo targets recorded. 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 [email or web address] Not available 12/09/2023 14:28:43 04/12/2024 [id number] felon infection: care instructions [email or web address] Not available 04/12/2024 15:08:29 Reason for Referral None Reported. Procedures Surgical History Date Name Laterality Status Provider Name and Address Organization Details Recorded Time Cerumen Removal completed Laura Campuzano MA [facility] 08/16/2024 19:30:08 Imaging Results None recorded. Procedure Notes None recorded. Medical Equipment None Reported. Allergies Allergen ID Allergen Name Allergen Category Reaction Reaction Severity Criticality Documentation Date Start Date Code Code System Note Provider Name and Address Organization Details Recorded Time 00384 Substance with sulfonami de structure and antibacte rial mechanism of action (substanc e) medicatio n nausea moderate high 12/09/2023 [id number] SNOMED Laura Campuzano MA [facility], [facility] 14:06:48 Medications Name Sig Start Date Stop Date Status Note LastModified by Organization Details LastModified Time atorvastatin 80 mg tablet Take 1 tablet every day by oral route at dinner. active Not Available Not Available No t Available clopidogrel 75 mg tablet Take 1 tablet every day by oral route. active Not Available Not Available No t Available benzonatate 100 mg capsule Take 1 capsule 3 times a day by oral route. active Not Available Not Available No t Available metformin 1,000 mg tablet Take 1 tablet twice a day by oral route. active Not Available Not Available No t Available nitroglyceri n 0.[address] by sublingual route as needed. active Not Available Not Available No t Available omeprazole 20 mg capsule,loren yed release Take 1 capsule twice a day by oral route. active Not Available Not Available No t Available metoprolol succinate ER 25 mg tablet,exten ded release 24 hr Take 1 tablet every day by oral route. active Not Available Not Available No t Available Vitamin C 250 mg tablet Take 2 tablets every day by oral route. active Not Available Not Available No t Available amoxicillin 875 mg-potassium clavulanate 125 mg tablet Take 1 tablet every 12 hours by oral route for 7 days. 2023 active Not Available Not Available Not Avai lable Novolog FlexPen U-100 Insulin aspart 100 unit/mL (3 mL) subcutaneous Inject as needed by subcutaneou s route. active Not Available Not Available No t Available Enbrel 50 mg/mL (1 mL) subcutaneous syringe Inject 1 mL every week by subcutaneou s route. active Not Available Not Available No t Available spironolacto ne 12.5 mg active Not Available Not Available Not Available Lantus Solostar U-100 Insulin 21 untis /15units active Not Available Not Available No t Available Jardiance 25 mg tablet Take 1 tablet every day by oral route in the morning. active Not Available Not Available No t Available Vitals Date Recorded Body height Body mass index (BMI) Body weight Body temperature Oxygen saturation Oxygen saturation in Arterial blood by Pulse oximetry Heart rate Respiratory rate Systolic blood pressure Diastolic blood pressure Provider Name and Address Organization Details Last Updated DateTime 4 170.18 cm 21.8 kg/m2 77955.3 4 g 97.5 [degF] 99 % 99 % 98 /min 18 /min 111 mm[Hg] 77 mm[Hg] Laura Campuzano MA [facility] 4 14:05:56 Date Recorded Body height Body mass index (BMI) Body weight Body temperature Oxygen saturation Oxygen saturation in Arterial blood by Pulse oximetry Heart rate Respiratory rate Systolic blood pressure Diastolic blood pressure Provider Name and Address Organization Details Last Updated DateTime 4 170.18 cm 22.6 kg/m2 03045.3 g 98.1 [degF] 97 % 97 % 94 /min 17 /min 111 mm[Hg] 71 mm[Hg] Rafa hagan MA [facility] 4 14:24:30 Social History Question Answer Notes LastModified by Organizat ion Details LastModified Time Tobacco Smoking Status Former Smoker Laura Campuzano MA [facility], [facility] 12/09/2023 14:10:11 What Was The Date Of Your Most Recent Tobacco Screening? 04/12/2024 Information not available 04/12/2024 Has Tobacco Cessation Counseling Been Provided? Yes [email or web address] Information not available 12/09/2023 On What Date Was Tobacco Cessation Counseling Provided? 04/12/2024 [email or web address] Information not available 04/12/2024 Sex: Male Functional Status None recorded. Mental Status None recorded. Family History Nothing Reported. Medical History No medical history recorded. Immunizations Vaccine Type Date Status Note Provider Nam e and Address Organization Details Recorded Time COVID-19, mRNA, LNP-S, PF, 30 mcg/0.3 mL dose, william-[email or web address] 11/10/2020 completed NEMO De La Cruz, [facility] 12/10/2023 10:30:38 COVID-19, mRNA, LNP-S, PF, 30 mcg/0.3 mL dose, william-sucrose 12/01/2020 completed Leni Bah RN null, [facility] 12/10/2023 10:30:41 COVID-19, mRNA, LNP-S, PF, 30 mcg/0.3 mL dose, william-sucrose 08/02/2021 completed NEMO De La Cruz, [facility] 12/10/2023 10:30:44 COVID-19, mRNA, LNP-S, PF, 30 mcg/0.3 mL dose, william-sucrose 03/07/2022 completed NEMO De La Cruz, [facility] 12/10/2023 10:30:47 COVID-19, mRNA, LNP-S, PF, 30 mcg/0.3 mL dose, william-sucrose 08/29/2022 completed Leni Bah RN null, [facility] 12/10/2023 10:30:50 COVID-19, mRNA, LNP-S, PF, 30 mcg/0.3 mL dose, william-sucrose 04/03/2023 completed NEMO De La Cruz, [facility] 12/10/2023 10:30:56 influenza, unspecified formulation 08/29/2022 completed Leni Bah RN null, [facility] 12/10/2023 10:31:09 pneumococcal, unspecified formulation 10/15/2007 completed NEMO De La Cruz, [facility] 12/10/2023 10:31:23 Tdap 11/22/2009 completed NEMO De La Cruz, [facility] 12/10/2023 10:31:33 Td(adult) unspecified formulation 10/06/2020 completed NEMO De La Cruz, [facility] 12/10/2023 10:31:40 zoster recombinant 09/18/2021 completed NEMO De La Cruz, [facility] 12/10/2023 10:31:54 zoster recombinant 02/26/2022 completed Leni Bah RN [facility], [facility] 12/10/2023 10:31:57 Past Encounters Encounter ID Performer Location Encounter Start Date Encounter Closed Date Diagnosis/Indication Diagnosis SNOMED-CT Code Diagnosis ICD10 Code [id number] Juan Mckinnon MD [address] [address] 12/09/2023 13:52:47 12/09/2023 14:25:26 Cellulitis of finger of right hand [id number] L03.317 [id number] ROVERTO GILMORE [address] [address] 04/12/2024 13:51:26 04/12/2024 15:00:02 Cellulitis of finger of left hand [id number] 7499299 L03.513 [id number] Laura Campuzano MA [address] [address] 08/16/2024 13:01:57 08/16/2024 14:44:22 Health Concerns Section Related Observation LastModified by Organization Detai ls LastModified Time None Recorded Concern Status LastModified by Organization Details LastModified Time None Recorded Advance Directives Directive None Recorded Payers Encounter Date Sequence Insurance Name Policy Number Policy Ridley Covered Member ID Ridley Member ID Guarantor Name 12/09/2023 1 [facility] [place] [facility] [place] [facility] (O) [id number] Ervin S Analia [id number] Ervin Helms 04/12/2024 1 [facility] [place] [facility] [place] [facility] (PPO[place] [id number] Ervin Griffithby [id number] Ervin Helms 08/16/2024 1 [facility] [place] [facility] [place] [facility] (O) [id number] Ervin S [place] [id number] Ervin Helms Notes Date Note Type Note Provider Name and Address Organization Details Recorded Time 04/12/2024 text/html Patient with L index finger area of redness, swelling, and tenderness that began 3-4 days ago. Believes initially due to pulling a hangnail/piece of skin with small open area.Has had no purulent drainage, no fevers, no streaking up the arm. He does report psoriasis with pitted nails, and a frequent nail biting habit. He had a similar infection 4 months ago to another finger, treated with Augmentin with good results. Patient has not been performing any soaks or compresses. PIETRO CAMPOS, ROVERTO [address], [place], [address], [facility]. 04/12/2024 15:08:32
--- OUTSIDE RECORDS SUMMARY | 2024-10-08 00:35 | XMS_ITS | Continuity of Care Document ---
Author Organization [facility] Address [address] [place] [address] Assessment No assessment recorded. Plan of Treatment Reminders Order Date Submit Date Provider Last Modified By Organization Details Last Modified Time Details Appointments None record ed. Lab None record ed. Referral None record ed. Procedures None record ed. Surgeries None record ed. Imaging None record ed. Medication Orders None record ed. Patient TargetsNo targets recorded. Patient InstructionsNo instructions recorded. Reason for Referral None Reported. Procedures Surgical History Date Name Laterality Status Provider Name and Address Organization Details Recorded Time 4 Cerumen Removal completed Laura Campuzano MA [facility] 08/16/2024 19:30:08 Imaging Results None recorded. Procedure Notes None recorded. Medical Equipment None Reported. Allergies Allergen ID Allergen Name Allergen Category Reaction Reaction Severity Criticality Documentation Date Start Date Code Code System Note Provider Name and Address Organization Details Recorded Time 39680 Substance with sulfonami de structure and antibacte rial mechanism of action (substanc e) medicatio n nausea moderate high 12/09/2023 47540 8003 SNOMED Laura Campuzano MA null, [facility] 4 14:06:48 Medications Name Sig Start Date Stop [...] Available Not Available No t Available Vitals None Recorded Social History Question Answer Notes LastModified by Organizat ion Details LastModified Time Tobacco Smoking Status Former Smoker Laura Campuzano MA [facility], [facility] 12/09/2023 14:10:11 What Was The Date Of Your Most Recent Tobacco Screening? 04/12/2024 [email or web address] Information not available 04/12/2024 Has Tobacco Cessation Counseling Been Provided? Yes [email or web address] Information not available 12/09/2023 On What Date Was Tobacco Cessation Counseling Provided? 04/12/2024 [email or web address] Information not available 04/12/2024 Sex: Male Functional Status None recorded. Mental Status None recorded. Family History Nothing Reported. Medical History No medical history recorded. Immunizations Vaccine Type Date Status Note Provider Nam e and Address Organization Details Recorded Time COVID-19, mRNA, LNP-S, PF, 30 mcg/0.3 mL dose, william-sucrose 11/10/2020 completed Leni Bah RN null, [facility] 12/10/2023 10:30:38 COVID-19, mRNA, LNP-S, PF, 30 mcg/0.3 mL dose, william-sucrose 12/01/2020 completed NEMO De La Cruz, [facility] 12/10/2023 10:30:41 COVID-19, mRNA, LNP-S, PF, 30 mcg/0.3 mL dose, william-sucrose 08/02/2021 completed NEMO De La Cruz, [facility] 12/10/2023 10:30:44 COVID-19, mRNA, LNP-S, PF, 30 mcg/0.3 mL dose, william-sucrose 03/07/2022 completed NEMO De La Cruz, [facility] 12/10/2023 10:30:47 COVID-19, mRNA, LNP-S, PF, 30 mcg/0.3 mL dose, william-sucrose 08/29/2022 completed NEMO De La Cruz, [facility] 12/10/2023 10:30:50 COVID-19, mRNA, LNP-S, PF, 30 mcg/0.3 mL dose, william-sucrose 04/03/2023 completed NEMO De La Cruz, [facility] 12/10/2023 10:30:56 influenza, unspecified formulation 08/29/2022 completed NEMO De La Cruz, [facility] 12/10/2023 10:31:09 pneumococcal, unspecified formulation 10/15/2007 completed NEMO De La Cruz, [facility] 12/10/2023 10:31:23 Tdap 11/22/2009 completed NEMO De La Cruz, [facility] 12/10/2023 10:31:33 Td(adult) unspecified formulation 10/06/2020 completed NEMO De La Cruz, [facility] 12/10/2023 10:31:40 zoster recombinant 09/18/2021 completed NEMO De La Cruz, [facility] 12/10/2023 10:31:54 zoster recombinant 02/26/2022 completed Leni Bah RN null, [facility] 12/10/2023 10:31:57 Past Encounters Encounter ID Performer Location Encounter Start Date Encounter Closed Date Diagnosis/Indication Diagnosis SNOMED-CT Code Diagnosis ICD10 Code [id number] Laura Campuzano MA [address] [address] 08/16/2024 13:01:57 08/16/2024 14:44:22 Health Concerns Section Related Observation LastModified by Organization Detai ls LastModified Time None Recorded Concern Status LastModified by Organization Details LastModified Time None Recorded Payers Encounter Date Sequence Insurance Name Policy Number Policy Ridley Covered Member ID Ridley Member ID Guarantor Name 08/16/2024 1 [facility] [place] [facility] [place] [id number] Ervin Helms [id number] Ervin Helms
--- OUTSIDE RECORDS SUMMARY | 2024-10-08 00:35 | XMS_ITS | Clinical Summary ---
Author Organization [facility] Address [facility] [place] [address] Care Team Providers Care Director Loan Name Role Phone HoLamaikel Pope APRN Primary Care Provider [phone] Allergies Active Allergy Reactions Criticality Noted Date Comments Facial Mask 05/21/2018 House Dust High 09/01/2020 Other reaction(s): NASAL CONGESTION Sulfa (Sulfonamide Antibiotics) High 01/23/2012 Other reaction(s): NAUSEA Medications Medication Sig Dispensed Refills Start Date End Date Status loratadine (CLARITIN) 10 mg tablet Take 10 mg by mouth as needed. Active omeprazole (PRILOSEC) 20 mg capsule Take 1 capsule by mouth 2 times daily. 60 capsule 12 09/21/2012 Active ascorbic acid, Vitamin C, (Vitamin C) 250 mg Tablet Take 500 mg by mouth daily. Active NOVOFINE 32 32 x 14 Needle Inject 1 each subcutaneously 2 times daily. Reported on 12/25/2016 0 10/17/2014 Active metFORMIN (GLUCOPHAGE) 1,000 mg Tablet Take 1,000 mg by mouth 2 times daily. 0 03/03/2015 Active GERRY PEN NEEDLE 32 gauge x NeedleIndications:P soriatic arthritis USE TWICE DAILY 0 08/05/2017 A ctive JARDIANCE 25 mg Tablet Take 25 mg by mouth daily. 0 01/05/2018 Active ynqvpjrc-eivhsr-uuj 1-D3-C-srinivasan 750-625-1,000 mg-mg-unit Tablet Take 2 tablets by mouth 2 times daily. Active triamcinolone (Kenalog) 0.1 % Cream Apply to areas of itching twice daily. 80 g 07/17/2021 Active fluticasone propionate (Flonase) 50 mcg/actuation Tarrs, Suspension 1-2 sprays by Each Nare route daily as needed. 10/15/2015 Active etanercept (EnbreL SureClick) Pen InjectorIndications :Psoriatic arthritis INJECT 1 PEN UNDER THE SKIN EVERY 7 DAYS. 4 mL 11 11/03/2023 Active calcipotriene (Dovonex) 0.005 % Cream Apply twice daily this to psoriasis in genital area 60 g 5 11/03/2023 Active aspirin 81 mg chewable tablet Take 81 mg by mouth daily. 30 tablet 3 11/12/2023 Active atorvastatin (Lipitor) 80 mg tablet Take 1 tablet by mouth every evening. 90 tablet 3 11/11/2023 Active clopidogreL (Plavix) 75 mg tablet Take 1 tablet by mouth daily. 90 tablet 3 11/12/2023 Active nitroGLYcerin (Nitrostat) 0.[address] 1 tablet under the tongue every 5 minutes as needed for Chest pain. 90 tablet 12 11/11/2023 Active mupirocin (Bactroban) 2 % Ointment Apply topically 3 times daily. Active acetaminophen (Tylenol) 500 mg tablet Take 1,000 mg by mouth every 6 hours as needed for Pain. Active insulin glargine (Lantus) 100 unit/mL (3 mL) pen Inject 22 Units subcutaneously nightly. 21 units am 15 units night Active insulin aspart U-100 (NovoLOG) 100 unit/mL Cartridge Inject 5 Units subcutaneously 3 times daily (before meals). Active spironolactone (Aldactone) 25 mg tabletIndications:C ardiomyopathy, ischemic Take 0.5 tablets by mouth daily. 45 tablet 3 01/15/2024 Active metoprolol succinate XL (Toprol-XL) 50 mg ER 24 hr tabletIndications:A SCVD (arteriosclerotic cardiovascular disease) TAKE ONE TABLET BY MOUTH EVERY DAY 90 tablet 3 06/16/2024 Active Active Problems Problem Noted Date Diagnosed Date Cardiomyopathy, ischemic 12/17/2023 Overview (04/12/2024): 10/2023 (inferior STEMI): EF 28%, RCA territory akinesis. RV and valves normal 01/2024: EF 41%, inferior tardykinesis. RV nl. No significant VHD Assessment & Plan (04/12/2024 4:22 PM EDT): No failure by history nor exam. EF has improved to but mildly reduced; I anticipate this is his baseline. However, will have high threshold to remove any of the below cardioprotection. - Diuresis: none - Cardioprotection: - Beta Blockade: toprol 50 - RAASi: defer- EF > 40% - MC Blockade: aldactone 12.5 qd - SGLT2i: jardiance 10 - Devices: not currently indicated (EF > 35%) Assessment & Plan (12/17/2023 4:09 PM EST): No failure by history nor exam. - Diuresis: none - Cardioprotection: - Beta Blockade: increase toprol to 50 - RAASi: defer (low BP) - MC Blockade: aldactone 12.5 - SGLT2i: jardiance 25 - Devices: pending interval echo- obtain in 3 months ASCVD (arteriosclerotic cardiovascular disease) 11/08/2023 Overview (12/17/2023): Cardiac Catheterization: (10/2023) RIGHT dominance Indication: Inferior STEMI, [place] 1, pharmacoinvasive strategy LVEDP 15 Artery Lesion Intervention LM mild LAD Mid 50 LCx Prox 100% Thrombectomy+ 3.5 x 26 [place] RCA Mid CARRIER BLOWER (cols via LAD) RCA attempted, but unable to cross lesion Assessment & Plan (04/12/2024 4:21 PM EDT): No angina per history. - Anti-Thrombosis: asa 81, plavix 75. The latter through 10/2024 - Anti- Lipemic: lipitor 80 - Anti- Anginals: GTN PRN, toprol Assessment & Plan (12/17/2023 3:36 PM EST): No angina per history. - Anti-Thrombosis: asa 81, plavix 75. The latter through 10/2024 - Anti- Lipemic: lipitor 80 - Anti- Anginals: GTN PRN, toprol Anemia, iron deficiency 12/11/2015 Overview (01/29/2016): Negative GI work-up. History of Huang's esophagitis- months o f oral iron with minimal improvement. IV VENOFER 12/12 with good results Epidermal cyst 07/14/2015 Type II or unspecified type diabetes mellitus without mention of complication, uncontrolled 08/24/2013 GERD (gastroesophageal reflux disease) 3 Verruca vulgaris 01/28/2013 Psoriasis 01/23/2012 Resolved Problems Problem Noted Date Diagnosed Date Resolved Date Visit for suture removal 08/04/2015 Immunizations Name Administration Dates Next Due Influenza (FluMist) Quadrivalent, Intranasal BENITA E 10/04/2011 Influenza PF, Split 06/13/2017,08/24/2013 Influenza Quadrivalent with Preservative 015,07/18/2014 Influenza Trivalent w/Preservative 07/28/2015 Pneumococcal 23-Valent Polysaccharide (Pneumovax 23) 10/15/2007 Td Adult (Decavac, Tenivac) 11/22/2009, 4 Td Adult (not absorbed) 03/19/2004 Tdap (Adacel, Boostrix) 11/22/2009 Family History Medical History Relation Comments Heart Disease Brother 2 Cancer Mother Relation Status Comments Brother 1 Brother 2 Father Mother Social History Tobacco Use Types Packs/Day Years Used Date Smoking Tobacco: Former Cigarettes Q uit: 12/27/1988 Smokeless Tobacco: Never Alcohol Use Standard Drinks/Week Comments No 0 (1 standard drink = 0.6 oz pur e alcohol) [facility] Utilities Answer Date Recorded In the past 12 months has e [employer], gas, oil, or water [employer] threatened to shut off services in your [...] place to sleep or slept in a custodial (including now)? No 11/10/2023 DH IPV Inpatient [...] on file Sexual Orientation Not on file Last Filed Vital Signs Vital Sign Reading Time Taken Comments Blood Pressure 116/68 04/12/2024 4:05 PM EDT Pulse 76 04/12/2024 4:05 PM EDT Temperature 36.7 ??C (98.1 ??F) 11/11/2023 7:23 AM ES T Respiratory Rate 20 11/11/2023 12:14 PM EST Oxygen Saturation 96% 11/11/2023 12:14 PM EST Inhaled Oxygen Concentration - - Weight 65.3 kg (144 lb) 04/12/2024 4:05 PM EDT Height 170.2 cm (5' 7) 04/12/2024 4:05 PM EDT Body Mass Index 22.55 04/12/2024 4:05 PM EDT Plan of Treatment Upcoming Encounters Date Type Department Care Team (Late st Contact Info) Description 11/08/2024 3:30 PM EST Office Visit Dermatology at Telephone [address] [place] [address] Prosper Schmidt MD [address], [place] [address] 12/14/2024 2:40 PM EST Office Visit Cardiology at [address] [place] [phone] Benjie Garrison MD [facility] [place] [address] Health Maintenance Due Date Last Done Comments CT Colonography 1966 Colonoscopy 1966 Colorectal Cancer Screening 1966 FIT DNA 1966 FIT 1966 Sigmoidoscopy (10 year) with FIT yearly 1966 Sigmoidoscopy 1966 DM Opthalmology Exam 1976 HIV screen 1984 Hepatitis B vaccine (0-59 yr s) (1) 1985 Pneumococcal Vaccine: At-Ris k 5-64yrs (2 of 2 - PCV) 10/15/2008 10/15/2007 Zoster vaccine (1 of 2) 2016 Tetanus/Diphtheria/Pertussis Vaccines (3 - Td or Tdap) 11/22/2019 11/22/2009, 11/22/2009, 03/19/2004, Additional history exists Advance Directive 2021 DM Hemoglobin A1c 6 month 05/09/20242023, 02/09/2021, 05/21/2018, Additional history exists Covid-19 Vaccine (1 - 2023-2 5 season) 2024 Influenza (Flu) vaccine (1 o f 1 - Influenza standard series) 06/27/2024 06/13/2017, 08/16/2015, 07/28/2015, Additional history exists DM Urine Microalbumin yearly 11/09/2024, 05/21/2018, 07/22/2017, Additional history exists DM Creatinine yearly 11/11/2024 11/11/2023, 11/10/2023, 11/10/2023, Additional history exists Hepatitis C Screening Completed 10/14/2017 Lipid Screening Discontinued 11/09/2023, 01/25, 12/25/2016, Additional history exists Procedures Procedure Name Priority Date/Time Associated Diagnosis Comments BASIC METABOLIC PANEL Routine 11/11/2023 3:13 AM EST U ALBUMIN/CRE RATIO Routine 11/09/2023 4 :29 PM EST LIPID PANEL (REFLEX DIRECT LDL) Routine 11/09/2023 3:31 AM EST HEMOGLOBIN A1C Routine 11/09/2023 3:31 AM EST HEPATITIS C ANTIBODY Routine 10/14/2017 4:27 PM EST Psoriatic arthritis from Last 3 Months or Most Recently Relevant to Health Maintenance Results * (ABNORMAL) Basic Metabolic Panel (non-fasting) (11/11/2023 3:13 AM EST) Glucose 235(H) 65 - 199 mg/dL [facility] Comment: result rechecked-ssc Diabetes: >=200 mg/dL plus symptoms Blood Urea Nitrogen 25(H) 10 - 20 mg/dL [facility] Creatinine 1.44 0.80 - 1.50 mg/dL [facility] Sodium 134(L) 135 - 145 mmol/L [facility] Potassium 3.9 3.5 - 5.0 mmol/L [facility] Comment: Please note: ??Patients with WBC >100,000 may have falsely elevated Potassium levels. ??For accurate Potassium quantification in these patients send serum separator tube (gold top) for subsequent determinations. ??Contact the Clinical Chemistry Laboratory if there are any questions. Chloride 100 98 - 107 mmol/L [facility] Carbon Dioxide 24 22 - 31 mmol/L [facility] Anion Gap 10 5 - 15 mmol/L [facility] Calcium 8.7 8.5 - 10.5 mg/dL [facility] Est Glomerular Filtration Rate 57(L) >=60 mL/min/1. 73 m?? [facility] Comment: This patient's estimated GFR was calculated using the 2020 CKD-EPI equation. The estimated GFR can vary from the measured GFR by up to 30% in the absence of rapidly changing kidney function. Assessment of the estimated GFR is not appropriate when creatinine concentrations are rapidly changing. For clinical situations in which a more precise estimate of GFR is necessary, consider alternative methods of GFR estimation such as a 24-hour urine creatinine clearance. Assignment of CKD stage 1-5 for patients with an eGFR near the transition point between stages may be based on clinical assessment of muscle mass and symptoms in addition to eGFR. Blood 11/11/2023 3:13 AM EST 11/11/2023 3:23 AM EST Narrative Resulting Agency Comment Spec In Lab Lexx Wynne MD CHEMISTRY ORDERABLES Performing Organization Address [facility] Co de Phone Number [facility] [place] [address] * U Albumin/Cre Ratio (11/09/2023 4:29 PM EST) Albumin / Creatinin Ratio, Urine Not Calculated 0 - 29 mcg/mg Cr [facility] Comment: Reference Ranges: <30 mcg/mg: Normal 30-300 mcg/mg: Moderately increased albuminuria.* >300 mcg/mg: Severely increased albuminuria. * ACEI or ARB recommended if diabetic; suggested if BP>130/80 without diabetes ACEI or ARB strongly recommended if diabetic; recommended if BP>130/80 without diabetes Two of three specimens collected within a 3 to 6 month period should be abnormal before considering a patient to have albuminuria. Transient causes: exercise, fever, infection, CHF, marked hyperglycemia or hypertension. Persistent albuminuria indicates CKD and is an independent risk factor for ASCVD. ADA Standards of Medical Care in Diabetes-2016; KDIGO: Kidney International Supplements (2012) 2, 357? 362 Albumin, Urine <3.0 mg/L [facility] Creatinine, Urine 52 mg/dL [facility] Urine 11/09/2023 4:29 PM EST 11/09/2023 4:41 PM EST Narrative Resulting Agency Comment Spec In Lab Lexx Wynne MD URINE ORDERABLES Performing Organization Address [facility] Co de Phone Number [facility] [place] [address] * (ABNORMAL) Hemoglobin A1c (11/09/2023 3:31 AM EST) Hemoglobin A1c 7.3(H) 4.3 - 5.6 % [facility] Comment: Reference Range: 4.3 - 5.6% 5.7 - 6.4% - Increased Risk of Developing Diabetes Mellitus >= 6.5% - Consistent with diagnosis of Diabetes Mellitus In the absence of hyperglycemia (i.e. plasma glucose > 200 mg/dL) or classic symptoms of hyperglycemia a repeat measurement of HbA1c should be performed on a separate sample to confirm the diagnosis. Diagnosis and Classification of Diabetes Mellitus, Diabetes Care 2013; 36: Suppl. 1, S62-09 Estimated Average Glucose 163 mg/dL [facility] Blood 11/09/2023 3:31 AM EST 11/09/2023 3:54 AM EST Narrative Resulting Agency Comment Spec In Lab Mario Fitzpatrick MD CHEMISTRY ORDERABLES [facility] [place] [place] [address] * Lipid Panel (Reflex Direct LDL) (11/09/2023 3:31 AM EST) [facility] Cholesterol, Total 133 mg/dL [facility] Comment: Lower Risk: <200 mg/dL Average Risk: 200-239 mg/dL Higher Risk: >xe=862 mg/dL Triglyceride 35 mg/dL [facility] Comment: Average Risk/Lower Risk: <150 mg/dL Borderline High Risk: 150-199 mg/dL High Risk: 200-499 mg/dL Very High Risk: >dr=865 mg/dL HDL Cholesterol 52 mg/dL [facility] Comment: Males: ?? Higher Risk: <40 mg/dL Females: ?? Higher Risk: <50 mg/dL LDL Cholesterol 74 mg/dL [facility] Comment: Lowest Risk: <100 mg/dL Lower Risk: 100-129 mg/dL Borderline High Risk: 130-159 mg/dL High Risk: 160-189 mg/dL Very High Risk: >td=917 mg/dL Cholesterol/HDL Ratio 2.6 ratio [facility] Lipid Interpretation See Note [facility] Comment: Lipid management should be guided by a patient? s ASCVD risk, goals and preferences. ACC/AHA Guidelines recommend high intensity statin if clinical ASCVD or LDL greater than or equal to 190 mg/dL. http://Capital Float[employer].com/YZM-YKL-Ncqjgcpjy Adults aged 40-75 with LDL 70-189 mg/dL should have their 10 year ASCVD risk estimated with the ACC/AHA ASCVD risk project estimator http://tools.acc.org/YFBOH-Ehlv-Kmygcwrbk/ Statin should be discussed if risk greater than or equal to 7.5% in non-diabetics. With diabetes, moderate intensity statin is recommended if risk less than 7.5%, high intensity if risk greater than or equal to 7.5%. Annual lipid monitoring on statins is not necessary. Evaluate secondary causes of Triglycerides greater than 500 mg/dL or LDL greater than 190 mg/dL: See table 6 of ACC/AHA Guideline. Lifestyle modification is a critical component of ASCVD risk reduction. Blood 11/09/2023 3:31 AM EST 11/09/2023 3:53 AM EST Narrative Resulting Agency Comment Spec In Lab Mario Fitzpatrick MD CHEMISTRY ORDERABLES Performing Organization Address [facility] Co de Phone Number [facility] [address] * Hepatitis C Antibody (10/14/2017 4:27 PM EST) Hepatitis C Antibody Negative Negative [facility] Blood specimen (specimen) 10/14/2017 4:27 PM EST 10/14/2017 4:40 PM EST Narrative Resulting Agency Comment Spec In Lab Ayde Malin DO CHEMISTRY ORDERABL ES Performing Organization Address [facility] Co de Phone Number [facility] [place] [address] from Last 3 Months or Most Recently Relevant to Health Maintenance Advance Directives * Full Code (Latest Code Status on File) Date Activated Date Inactivated Comments 11/11/2023 2:53 PM Question Answer Comments Does patient have capacity to make decision: Yes * Attempt Cardiopulmonary Resuscitation - Inpatient Date Activated Date Inactivated Comments 11/08/2023 7:25 PM 11/11/2023 2:53 PM Question Answer Comments Code Status decision made by: Patient * Attempt Cardiopulmonary Resuscitation - Inpatient Date Activated Date Inactivated Comments 11/08/2023 6:07 PM 11/08/2023 7:25 PM Question Answer Comments Code Status decision made by: Patient Care Teams Director Loan Relationship Specialty Start Date End Date Ermias Teague, [place] WARDEN [address] [place] [address] PCP - General Family Medicine 10/01/22
--- OUTSIDE RECORDS SUMMARY | 2024-10-08 00:36 | XMS_ITS | Encounter Summary ---
Author Organization [facility] Address [facility] [address] Care Team Providers Care Glass Frame Fitter Name Role Phone Ermias Teague APRN Primary Care Provider +1- [phone] Reason for Visit * Reason Comments Coronary Artery Disease Cardiomyopathy * Consultation (Routine) - Authorized Specialty Diagnoses / Procedures Referred By Contac t Referred To Contact Cardiology Diagnoses Status post cardiac catheterization EST CARE S/P CARDIAC CATH Ermias Teague APRN [address] [place] [address] [facility] [address] [place] [phone] Referral ID Status Reason Start Date Expiration Date Visits Requested Visits Authorized [id number] Authorized Consult, Test & Treat PCP Updated and/or Approved 01/20/2024 01/19/2025 6 6 Encounter Details Date Type Department Care Team (Latest Contact Info) Description 04/12/2024 3:40 PM EDT Office Visit Cardiology at [address] [address] Benjie Garrison MD [facility] [place] [address] Cardiomyopathy, ischemic; ASCVD (arteriosclerotic cardiovascular disease) Social History Tobacco Use Types Packs/Day Years Used Date Smoking Tobacco: Former Cigarettes Q uit: 12/27/1988 Smokeless Tobacco: Never Alcohol Use Standard Drinks/Week Comments No 0 (1 standard drink = 0.6 oz pur e alcohol) [facility] Utilities Answer Date Recorded In the past 12 months has th e electric, gas, oil, or water company threatened [...] place to sleep or slept in a longterm (including now)? No 11/10/2023 DH IPV Inpatient [...] on file documented as of this encounter Last Filed Vital Signs Vital Sign Reading Time Taken Comments Blood Pressure 116/68 04/12/2024 4:05 PM EDT Pulse 76 04/12/2024 4:05 PM EDT Temperature - - Respiratory Rate - - Oxygen Saturation - - Inhaled Oxygen Concentration - - Weight 65.3 kg (144 lb) 04/12/2024 4:05 PM EDT Height 170.2 cm (5' 7) 04/12/2024 4:05 PM EDT Body Mass Index 22.55 04/12/2024 4:05 PM EDT documented in this encounter Progress Notes * Benjie Garrison MD - 04/12/2024 3:40 PM EDT Images from the original note were not included. Subjective: Patient ID: Ervin Helms is a 58 y.o. male who presents on follow-up for: Chief Complaint Patient presents with Coronary Artery Disease Cardiomyopathy HPI Last seen by me 11/2023, at which time toprol was increased to 50. He had an intercurrent echo as per problem lsit. Since then, he has been doing well. Reasonable activity is without angina nor untoward dyspnea. No palpitations Bp well controlled No bleeding on dapt Looking forward to having weeks off; [place] Current Outpatient Medications Medication Instructions acetaminophen (TYLENOL) 1,000 mg, Oral, EVERY 6 HOURS PRN ascorbic acid (Vitamin C) (VITAMIN C) 500 mg, Oral, DAILY aspirin 81 mg, Oral, DAILY atorvastatin (LIPITOR) 80 mg, Oral, EVERY EVENING calcipotriene (Dovonex) 0.005 % Cream Apply twice daily this to psoriasis in genital area clopidogreL (PLAVIX) 75 mg, Oral, DAILY etanercept (EnbreL SureClick) Pen Injector INJECT 1 PEN UNDER THE SKIN EVERY 7 DAYS. fluticasone propionate (Flonase) 50 mcg/actuation Shoshone, Suspension 1-2 sprays, Each Nare, DAILY PRN gaqrkgro-rvaffp-euy2-D3-C-srinivasan 750-625-1,000 mg-mg-unit Tablet 2 tablets, Oral, 2 TIMES DAILY insulin aspart U-100 (NOVOLOG) 5 Units, Subcutaneous, 3 TIMES DAILY BEFORE MEALS insulin glargine (LANTUS) 22 Units, Subcutaneous, NIGHTLY, 21 units am 15 units night Jardiance 25 mg, Oral, DAILY loratadine (CLARITIN) 10 mg, Oral, PRN metFORMIN (GLUCOPHAGE) 1,000 mg, Oral, 2 TIMES DAILY metoprolol succinate XL (TOPROL-XL) 50 mg, Oral, DAILY, Note: take ONE tablet for correct dose mupirocin (Bactroban) 2 % Ointment Topical (Top), 3 TIMES DAILY GERRY PEN NEEDLE 32 gauge x Needle USE TWICE DAILY nitroGLYcerin (NITROSTAT) 0.4 mg, Sublingual, EVERY 5 MIN PRN NOVOFINE 32 32 x 1/4 Needle 1 each, Subcutaneous, 2 TIMES DAILY, Reported on 12/25/2016 omeprazole (PRILOSEC) 20 mg, Oral, 2 TIMES DAILY spironolactone (ALDACTONE) 12.5 mg, Oral, DAILY triamcinolone (Kenalog) 0.1 % Cream Apply to areas of itching twice daily. Patient Active Problem List Diagnosis Cardiomyopathy, ischemic 10/2023 (inferior STEMI): EF 28%, RCA territory akinesis. RV and valves normal 01/2024: EF 41%, inferior tardykinesis. RV nl. 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 History of Huang's esophagitis- months o f oral iron with minimal improvement. IV VENOFER 12/12 with good results Epidermal cyst Type II or unspecified type diabetes mellitus without mention of complication, uncontrolled GERD (gastroesophageal reflux disease) Verruca vulgaris Psoriasis Objective: BP 116/68 (BP Location (NBP): Right arm, Patient Position: Sitting, BP Cuff Sizes: Adult (25-34 cm)) Pulse 76 Ht 170.2 cm (5' 7) Wt 65.3 kg (144 lb) BMI 22.55 kg/m?? Gen: pleasant male in NAD Cor: rrr, s1/s2 of nl character and amplitude, no pathologic m/r/g. Estimated RAP not elevated. Carotids with normal upstroke without bruit. Pulm: CTAB. Normal diaphragmatic movement without use of accessory muscles Assessment and Plan: Cardiomyopathy, ischemic No failure by history nor exam. EF [...] Devices: not currently indicated (EF > 35%) ASCVD (arteriosclerotic cardiovascular disease) No angina per history. - Anti-Thrombosis: asa 81, plavix 75. The latter through 10/2024 - Anti- Lipemic: lipitor 80 - Anti- Anginals: GTN PRN, toprol RTC 7 months Benjie Garrison MD documented in this encounter Miscellaneous Notes * Assessment & Plan Note - Benjie Garrison MD - 04/12/2024 4:21 PM EDT Associated Problem(s): ASCVD (arteriosclerotic cardiovascular disease) No angina per history. - Anti-Thrombosis: asa 81, plavix 75. The latter through 10/2024 - Anti- Lipemic: lipitor 80 - Anti- Anginals: GTN PRN, toprol * Assessment & Plan Note - Benjie Garrison MD - 04/12/2024 4:21 PM EDT Associated Problem(s): Cardiomyopathy, ischemic No failure by history nor exam. EF [...] Devices: not currently indicated (EF > 35%) documented in this encounter Plan of Treatment Upcoming Encounters Date Type Department Care Team (Late st Contact Info) Description 11/08/2024 3:30 PM EST Office Visit Dermatology at [address] [place] [place] [address] Prosper Schmidt MD [address] [facility], [address] Christoph DERMATOLOGY [place], [place] [id number] 12/14/2024 2:40 PM EST Office Visit Cardiology at [address] [place] [address] Benjie Garrison MD [facility] [place] [address] Scheduled Referrals Name Type Priority Associated Diagnoses Orde r Schedule Referral to Cardiology Outpatient Referral Routine Other specified postprocedural states Ordered: 01/20/2024 documented as of this encounter Visit Diagnoses Diagnosis Cardiomyopathy, ischemic Other specified forms of chronic ischemic heart disease ASCVD (arteriosclerotic cardiovascular disease) Unspecified cardiovascular disease documented in this encounter Care Teams Glass Frame Fitter Relationship Specialty Start Date End Date Ermias Teague, PANELBOARD TANK PUMPER [address] [facility] 1 [place] [address] PCP - General Family Medicine 10/01/22 documented as of this encounter
--- OUTSIDE RECORDS SUMMARY | 2024-10-08 00:36 | XMS_ITS | Encounter Summary ---
Author Organization [facility] [place] [address] Care Team Providers Care Catshovel Driver Name Role Phone Ermias Teague APRN Primary Care Provider +1- [phone] Reason for Referral * Consultation (Routine) - Authorized Specialty Diagnoses / Procedures Referred By Zenaida t Referred To Contact Cardiology Diagnoses Status post cardiac catheterization EST CARE S/P CARDIAC CATH Ermias Teague APRN [address] [place] [address] [facility] [address] [place] [phone] Referral ID Status Reason Start Date Expiration Date Visits Requested Visits Authorized [id number] Authorized Consult, Test & Treat PCP Updated and/or Approved 01/20/2024 01/19/2025 6 6 Encounter Details Date Type Department Care Team (Late st Contact Info) Description 01/20/2024 Transcribe Orders eDH Incoming Referrals [phone] Ermias Teague APRN [address] [place] [address] Other specified postprocedural states Social History Tobacco Use Types Packs/Day Years [...] place to sleep or slept in a snf (including now)? No 11/10/2023 DH IPV Inpatient [...] 3:30 PM EST Office Visit Dermatology at [address] [place] [address] Prosper Schmidt MD [address], [place] [address] 12/14/2024 2:40 PM EST Office Visit Cardiology at [place] [address] [place] [address] Benjie Garrison MD [facility] [place] [address] Scheduled Referrals Name Type Priority Associated Diagnoses Orde r Schedule Referral to Cardiology Outpatient Referral Routine Other specified postprocedural states Ordered: 01/20/2024 documented as of this encounter Visit Diagnoses Diagnosis Other specified postprocedural states documented in this encounter Care Teams Catshovel Driver Relationship Specialty Start Date End Date Ermias Teague, PUBLICATIONS DISTRIBUTION CLERK [address] [place] [address] PCP - General Family Medicine 10/01/22 documented as of this encounter
--- OUTSIDE RECORDS SUMMARY | 2024-10-08 00:36 | XMS_ITS | Encounter Summary ---
Author Organization [facility] Address [facility] [place] [address] Care Team Providers Care Special Librarian Name Role Phone Ermias Teague APRN Primary Care Provider +1- [phone] Encounter Details Date Type Department Care Team (Latest Contact Info) Description 12/17/2023 Travel Social History Tobacco Use Types Packs/Day Years Used Date Smoking Tobacco: Former Cigarettes Q uit: 12/27/1988 Smokeless Tobacco: Never Alcohol Use Standard Drinks/Week Comments No 0 (1 standard drink = 0.6 oz pur e alcohol) [facility] Utilities Answer Date Recorded In the past [...] place to sleep or slept in a fci (including now)? No 11/10/2023 DH IPV Inpatient [...] 3:30 PM EST Office Visit Dermatology at [address] [place] [address] Prosper Schmidt MD [address] [place] [address], [facility] [place] [address] 12/14/2024 2:40 PM EST Office Visit Cardiology at [address] [place] [address] Benjie Garrison MD [facility] [place] [address] documented as of this encounter Visit Diagnoses Not on filedocumented in this encounter Care Teams Special Librarian Relationship Specialty Start Date End Date Ermias Teague APRN [address] [place] [address] [address] [facility] 1 [place] [address] PCP - General Family Medicine 10/01/22 documented as of this encounter
--- OUTSIDE RECORDS SUMMARY | 2024-10-08 00:36 | XMS_ITS | Encounter Summary ---
Author Organization [facility] Address [facility] [place] [address] Care Team Providers Care Humanities Professor Name Role Phone HoErmias Niko LAMBERT Primary Care Provider +1- [phone] Reason for Visit * Reason Onset Date Comments Medication Refill 01/13/2024 Encounter Details Date Type Department Care Team (Late st Contact Info) Description 01/13/2024 Refill Cardiology at [address] [place] [address] Benjie Garrison MD [facility] [place] [address] Medication Refill Social History Tobacco Use Types Packs/Day Years Used Date Smoking Tobacco: Former Cigarettes Q uit: 12/27/1988 Smokeless Tobacco: Never Alcohol Use Standard Drinks/Week Comments No 0 (1 standard drink = 0.6 oz pur e alcohol) [facility] Utilities Answer Date Recorded In the past 12 months has [employer] electric, gas, oil, or water company threatened [...] place to sleep or slept in a mcc (including now)? No 11/10/2023 DH IPV Inpatient [...] 3:30 PM EST Office Visit Dermatology at [address] [phone] Prosper Schmidt MD [address] [place] [address], [facility] [place] [address] 12/14/2024 2:40 PM EST Office Visit Cardiology at [address] [phone] Benjie Garrison MD [facility] [place] [address] documented as of this encounter Visit Diagnoses Diagnosis Cardiomyopathy, ischemic Other specified forms of chronic ischemic heart disease documented in this encounter Care Teams Humanities Professor Relationship Specialty Start Date End Date Ermias Teague APRN [address] [place] [address] PCP - General Family Medicine 10/01/22 documented as of this encounter
--- OUTSIDE RECORDS SUMMARY | 2024-10-08 00:36 | XMS_ITS | Encounter Summary ---
Author Organization [facility] Address [facility] [place] [address] Care Team Providers Care Return Checker Name Role Phone Ermias Teague APRN Primary Care Provider +1- [phone] Reason for Visit * Consultation (Routine) - Authorized Specialty Diagnoses / Procedures Referred By Zenaida t Referred To Contact Cardiology Diagnoses Status post cardiac catheterization EST CARE S/P CARDIAC CATH Ermias Teague APRN [address] [place] [address] [facility] [address] [facility] [address] [place] [address] Referral ID Status Reason Start Date Expiration Date Visits Requested Visits Authorized [id number] Authorized Consult, Test & Treat PCP Updated and/or Approved 01/20/2024 01/19/2025 6 6 Encounter Details Date Type Department Care Team (Latest Contact Info) Description 02/10/2024 4:20 PM EDT Ext Surgery or Single Event [facility] [address] [place] [address] Benjie Garrison MD [facility] [address] [place] [address] Cardiomyopathy, ischemic Social History Tobacco Use Types Packs/Day Years Used Date Smoking Tobacco: Former Cigarettes Q uit: 12/27/1988 Smokeless Tobacco: Never Alcohol Use Standard Drinks/Week Comments No 0 (1 standard drink = 0.6 oz pur e alcohol) [facility] Utilities Answer Date Recorded In [...] place to sleep or slept in a correction (including now)? No 11/10/2023 DH IPV Inpatient [...] 3:30 PM EST Office Visit Dermatology at [place] [address] [facility] [place] [phone] Prosper Schmidt MD [address], [place] [address] 12/14/2024 2:40 PM EST Office Visit Cardiology at [place] [address] [facility] [address] [place] [phone] Benjie Garrison MD [facility] [place] [address] documented as of this encounter Procedures Procedure Name Priority Date/Time Associated Diagnosis Comments ECHO SCAN (SCAN) 02/10/2024 12:0 0 AM EDT documented in this encounter Results * SCAN DOC: ECHO (02/10/2024 12:00 AM EDT) Anatomical Region Laterality Modality Cardiac Other Narrative 02/10/2024 12:00 AM EDT Ordered by an unspecified provider. Scanning Provider MEDIA MGR SCAN EXT O RDR/RSLT documented in this encounter Visit Diagnoses Diagnosis Cardiomyopathy, ischemic Other specified forms of chronic ischemic heart disease documented in this encounter Care Teams Return Checker Relationship Specialty Start Date End Date Ermias Teague, GANG SUPERVISOR PIPE LINES [address] [facility] 1 [place] [address] PCP - General Family Medicine 10/01/22 documented as of this encounter
--- OUTSIDE RECORDS SUMMARY | 2024-10-08 00:36 | XMS_ITS | Encounter Summary ---
Author Organization [facility] Address [facility] [place] [address] Care Team Providers Care Beef Farmer Name Role Phone HoLamaikel Pope APRN Primary Care Provider +1- [phone] Encounter Details Date Type Department Care Team (Late st Contact Info) Description 12/29/2023 Refill Cardiology at [address] [place] [phone] Benjie Garrison MD [facility] [place] [address] Social History Tobacco Use Types Packs/Day Years Used Date Smoking Tobacco: Former Cigarettes Q uit: 12/27/1988 Smokeless Tobacco: Never Alcohol Use Standard Drinks/Week Comments No 0 (1 standard drink = 0.6 oz pur e alcohol) [facility] Utilities Answer Date Recorded In the past 12 months has [employer] electric, gas, oil, or water [employer] threatened to shut off services in your [...] place to sleep or slept in a long-term (including now)? No 11/10/2023 DH IPV Inpatient [...] on file documented as of this encounter Miscellaneous Notes * Telephone Encounter - Umu Howe - 12/29/2023 2:57 PM EST Patient called because he is out of metoprolol. The doctor was going to increase it to 50 mg and call it in to [employer] in [facility]. His number is [phone] documented in this encounter Plan of Treatment Upcoming Encounters Date Type Department Care Team (Late st Contact Info) Description 11/08/2024 3:30 PM EST Office Visit Dermatology at [address] [place] [phone] Prosper Schmidt MD [address] [facility], [address] [place] [address] 12/14/2024 2:40 PM EST Office Visit Cardiology at [address] [place] [address] Benjie Garrison MD [facility] [place] [address] documented as of this encounter Visit Diagnoses Diagnosis ASCVD (arteriosclerotic cardiovascular disease) Unspecified cardiovascular disease documented in this encounter Care Teams Beef Farmer Relationship Specialty Start Date End Date Ermias Teague APRN [address] [place] [address] [address] [place] [address] PCP - General Family Medicine 10/01/22 documented as of this encounter
--- OUTSIDE RECORDS SUMMARY | 2024-10-08 00:36 | XMS_ITS | Encounter Summary ---
Author Organization [facility] Address [facility] [place] [address] Care Team Providers Care Petrophysicist Name Role Phone HoLamaikel Pope APRN Primary Care Provider +1- [phone] Encounter Details Date Type Department Care Team (Late st Contact Info) Description 11/08/2023 Orders Only Cardiology [facility] [place] [address] Unknown None Social History Tobacco Use Types Packs/Day Years Used Date Smoking Tobacco: Former Cigarettes Q uit: 12/27/1988 Smokeless Tobacco: Never Alcohol Use Standard Drinks/Week Comments No 0 (1 standard drink = 0.6 oz pur e alcohol) [facility] Utilities Answer Date Recorded In the past 12 months has e [employer], gas, oil, or water [employer] threatened to shut off services in your [...] 3:30 PM EST Office Visit Dermatology at [address] [phone] Prosper Schmidt MD [address] [place] [address], [facility] [place] [address] 12/14/2024 2:40 PM EST Office Visit Cardiology at [address] [phone] Benjie Garrison MD [facility] [place] [address] documented as of this encounter Procedures Procedure Name Priority Date/Time Associated Diagnosis Comments ECHOCARDIOGRAM TRANSTHORACIC Routine 11/08/2023 9:23 PM EST documented in this encounter Results * Echocardiogram Transthoracic (11/08/2023 9:23 PM EST) Anatomical Region Laterality Modality Cardiac Other 11/08/2023 9:23 PM EST Narrative 11/10/2023 10:55 AM EST 1 [place] [address] ? Echocardiogram Report Name: ERVIN HELMS ? Study Date: 11/08/2023 09:23 PM : 1965 Age: 57 yrs Gender: Male Performed By: Silvana Oakes Interpretation Summary Limited echo by overnight fellow. The left ventricle has severely reduced systolic function with a visually estimated LV EF of 20-25%. There is akinesis in the inferior and inferolateral salazar and hypokinesis in the septal and lateral salazar. Refer to comprehensive echocardiogram from 11/09/23 for further details. Pericardium/Pleural There is no pericardial effusion. Hemodynamics The estimated right atrial pressure is 3mmHg. I ?WMSI = 2.23 ? % Normal = 23 ?Segments ??Size X - Cannot ?? 1 - Normal ?? 2 - ? 3 - Akinetic 4 - ?1-2 ? small Interpret ? Hypokinetic ?Dyskinetic ?? 3-5 ? moderate 5 - ? 6-14 ?large Aneurysmal ?15-16 ?? diffuse Procedure Note Jerad Diaz MD - 11/10/2023 1 [place] [address] Echocardiogram Report Name: ERVIN HELMS Study Date: 11/08/2023 09:23 PM : 1965 Age: 57 yrs Gender: Male Performed By: Silvana Oakes Interpretation Summary Limited echo by overnight fellow. The left ventricle has severely reduced systolic function with avisually estimated LV EF of 20-25%. There is akinesis in the inferior andinferolateral salazar and hypokinesis in the septal and lateral salazar. Refer to comprehensive echocardiogram from 11/09/23 for further details. Pericardium/Pleural There is no pericardial effusion. Hemodynamics The estimated right atrial pressure is 3mmHg. I WMSI = 2.23 % Normal = 23 SegmentsSize X - Cannot 1 - Normal 2 - 3 - Akinetic 4 - 1-2small Interpret Hypokinetic Dyskinetic 3-5moderate 5 - 6-14large Aneurysmal 15-16diffuse Unknown ECHO ORDERABLES documented in this encounter Visit Diagnoses Not on filedocumented in this encounter Care Teams Petrophysicist Relationship Specialty Start Date End Date Ermias Teague, ROAD GANG SUPERVISOR [address] [place] [address] [address] [place] [address] PCP - General Family Medicine 10/01/22 documented as of this encounter
--- OUTSIDE RECORDS SUMMARY | 2024-10-08 00:36 | XMS_ITS | Encounter Summary ---
[facility] Organization [facility] Address [facility] [place] [address] Care Team Providers Care Back Tender Pulp Drier Name Role Phone HoLamaikel Pope APRN Primary Care Provider [phone]- [phone] Encounter Details Date Type Department Care Team (Late st Contact Info) Description 11/25/2023 Telephone Cardiology at [address] [place] [address] Benjie Garrison MD [facility] [place] [address] Social History Tobacco Use Types Packs/Day Years Used Date Smoking Tobacco: Former Cigarettes Q uit: 12/27/1988 Smokeless Tobacco: Never Alcohol Use Standard Drinks/Week Comments No 0 (1 standard drink = 0.6 oz pur e alcohol) [facility] Utilities Answer Date Recorded In the past 12 months has e electric, gas, oil, or water [employer] threatened to shut off services in your [...] place to sleep or slept in a group home (including now)? No 11/10/2023 [facility] IPV Inpatient [...] encounter Miscellaneous Notes * Telephone Encounter - Liz Agrawal RN - 11/25/2023 2:06 PM EST Ervin called in again- he has [facility] paperwork to be completed and it has been faxed here. He needs tosubmit that paperwork in [address] Garrison would not be able to address return to work status before seeing Ervin in the office. Short term plan is to recover from STEMI and surgery - away from work. terminal carman plan for recovery and work capacity cannot be determined yet. Recommendation: Ervin to CLARIFY if the PCP will release him to work - that provider could do the [facility] paperwork. I will continue to vigilantly watch for a cancellation to move Ervin to a sooner appointment. 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 He feels he it is a danger to him. He wants to know if he should continue to work there or what? He would like Dr Garrison opinion. I did tell him that the answer might have to wait until he is seen. [phone] NOTES FROM THE REFERRAL SUMMARY (Liz Agrawal) AUTHORED on November 18: Ervin was referred to [facility] Continuous Drier Operator by the discharging team at [facility] following cardiac cath, thrombectomy, and 3 vessel stent placement for a STEMI diagnosed 11/08/2023. Ervin was discharged to home 11/11/2023. Ervin will follow up with his PCP in another week. 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 Ervin asks if he must see the motion picture equipment machinist to be cleared to return to work. That isthe normal pathway to return to work clearance. documented in this encounter Plan of Treatment Upcoming Encounters Date Type Department Care Team (Late st Contact Info) Description 11/08/2024 3:30 PM EST Office Visit Dermatology at [address] [phone] Prosper Schmidt MD [address] [place] [address], [facility] [place] [address] 12/14/2024 2:40 PM EST Office Visit Cardiology at [address] [phone] Benjie Garrison MD [facility] [place] [place] [address] documented as of this encounter Visit Diagnoses Not on filedocumented in this encounter Care Teams Back Tender Pulp Drier Relationship Specialty Start Date End Date Ermias Teague APRN [address] [place] [address] PCP - General Family Medicine 10/01/22 documented as of this encounter
--- OUTSIDE RECORDS SUMMARY | 2024-10-08 00:36 | XMS_ITS | Encounter Summary ---
Author Organization [facility] Address [facility] [place] [address] Care Team Providers Care Castings Drafter Name Role Phone HoLamaikel Pope APRN Primary Care Provider [phone]- [phone] Encounter Details Date Type Department Care Team (Late st Contact Info) Description 01/13/2024 Telephone Cardiology at [address] [place] [address] Benjie Garrison MD [facility] [place] [address] Social History Tobacco Use Types Packs/Day Years Used Date Smoking Tobacco: Former Cigarettes Q uit: 12/27/1988 Smokeless Tobacco: Never Alcohol Use Standard Drinks/Week Comments No 0 (1 standard drink = 0.6 oz pur e alcohol) [facility] Utilities Answer Date Recorded In the past 12 months has e electric, gas, oil, or water [employer] threatened to shut off services in your [...] place to sleep or slept in a senior care (including now)? No 11/10/2023 DH IPV Inpatient [...] encounter Miscellaneous Notes * Telephone Encounter - Merna Honeycutt RN - 01/13/2024 2:21 PM EDT Refer to previous refill note * Telephone Encounter - Odessa Londono - 01/13/2024 1:41 PM EDT Patient called @ 12:50 p.m. on 01/13/24. He said he would like a refill of Spironolactone 25 mg, 1/2tab 1x daily, 1 tab left. He said he uses [facility] in [facility]. He can be reached at [phone]. documented in this encounter Plan of Treatment Upcoming Encounters Date Type Department Care Team (Late st Contact Info) Description 11/08/2024 3:30 PM EST Office Visit Dermatology at [place] [address] [facility] [place] [address] Prosper Schmidt MD [address] [facility] [place] [address] 12/14/2024 2:40 PM EST Office Visit Cardiology at [address] [place] [address] Benjie Garrison MD [facility] [place] [address] documented as of this encounter Visit Diagnoses Not on filedocumented in this encounter Care Teams Castings Drafter Relationship Specialty Start Date End Date Ermias Teague, PETRA [address] [facility] [address] [place] [address] PCP - General Family Medicine 10/01/22 documented as of this encounter
--- OUTSIDE RECORDS SUMMARY | 2024-10-08 00:36 | XMS_ITS | Encounter Summary ---
Author Organization [facility] Address [facility] [place] [address] Care Team Providers Care Paraffin Plant Sweater Operator Name Role Phone Ermisa Teague APRN Primary Care Provider +1- [phone] Encounter Details Date Type Department Care Team (Latest Contact Info) Description 04/12/2024 Travel Social History Tobacco Use Types Packs/Day Years Used Date Smoking Tobacco: Former Cigarettes Q uit: 12/27/1988 Smokeless Tobacco: Never Alcohol Use Standard Drinks/Week Comments No 0 (1 standard drink = 0.6 oz pur e alcohol) [facility] Utilities Answer Date Recorded In the [...] place to sleep or slept in a jail (including now)? No 11/10/2023 DH IPV Inpatient [...] 3:30 PM EST Office Visit Dermatology at [address] [place] [address] Prosper Schmidt MD [address] [place] [address], [facility] [place] [address] 12/14/2024 2:40 PM EST Office Visit Cardiology at [address] [place] [phone] [facility] [place] [address] documented as of this encounter Visit Diagnoses Not on filedocumented in this encounter Care Teams Paraffin Plant Sweater Operator Relationship Specialty Start Date End Date Ermias Teague APRN [address] [place] [address] [address] [facility] 1 [place] [address] PCP - General Family Medicine 10/01/22 documented as of this encounter
--- OUTSIDE RECORDS SUMMARY | 2024-10-08 00:36 | XMS_ITS | Encounter Summary ---
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 your heart after this heart attack, for which you were started on some extra medications: metoprolol 25 mg daily and spironolactone 12.5 mg daily.Your insulin was additionally increased while you were admitted. Please take your medications as prescribed and follow up with both your PCP and new cardiology provider at [facility]. You will also be referred to cardiac rehab. Call your doctor or seek medical attention if you develop the following - chest pain, shortness of breath, fever, cough, weakness in an arm or leg Activity level - no restrictions Diet - Carb control, heart healthy diet Driving - as before hospitalization Shower/Bath - permitted Wound Care - none Changes in Your Medications: New Medications: Aspirin 81 mg dialy Clopidogrel 75 mg daily Spironolactone 12.5 mg daily Metoprolol succinate 25 mg daily Atorvastatin 80 mg daily Nitroglycerin 0.4 mg sublingual- this may be taken as needed if you develop chest pain (please alsoreach out to a doctor or emergency medical services if you develop chest pain). Medication dose changes: Lantus (insulin): Please increase your morning insulin to 21 units and 15 units at night. Stop these medications: N/A Your Medications New Medications Dose Details aspirin 81 mg chewable tablet Take 81 mg by mouth daily. Start taking on: November 12, 2023 81 mg Quantity: 30 tablet Refills: 3 atorvastatin 80 mg tablet Commonly known as: Lipitor Take 1 tablet by mouth every evening. 80 mg Quantity: 90 tablet Refills: 3 clopidogreL 75 mg tablet Commonly known as: Plavix Take 1 tablet by mouth daily. Start taking on: November 12, 2023 75 mg Quantity: 90 tablet Refills: 3 metoprolol succinate XL 25 mg ER 24 hr tablet Commonly known as: Toprol-XL Take 1 tablet by mouth daily. 25 mg Quantity: 30 tablet Refills: 12 nitroGLYcerin 0.4 mg sublingual tablet Commonly known as: Nitrostat Place 1 tablet under the tongue every 5 minutes as needed for Chest pain. 0.4 mg Quantity: 90 tablet Refills: 12 spironolactone 25 mg tablet Commonly known as: Aldactone Take 0.5 tablets by mouth daily for 60 days. Start taking on: November 12, 2023 12.5 mg Quantity: 15 tablet Refills: 1 Continued medications with new dosing Dose Details Lantus Solostar U-100 Insulin 100 unit/mL (3 mL) pen Please inject 21 units in the morning and 15 units at night. Generic drug: insulin glargine What changed: how much to take how to take this when to take this additional instructions Quantity: 5 mL Refills: 3 Continued medications, unchanged Dose Details ascorbic acid (Vitamin C) 250 mg tablet Commonly known as: Vitamin C Take 500 mg by mouth daily. 500 mg Refills: 0 benzonatate 100 mg capsule Commonly known as: Tessalon Refills: 0 calcipotriene 0.005 % Cream Commonly known as: Dovonex Apply twice daily this to psoriasis in genital area Quantity: 60 g Refills: 5 EnbreL SureClick Pen Injector INJECT 1 PEN UNDER THE SKIN EVERY 7 DAYS. Generic drug: etanercept Quantity: 4 mL Refills: 11 fluticasone propionate 50 mcg/actuation Yale, Suspension Commonly known as: Flonase Daily Refills: 0 freestyle lite strips 1 each 3 times daily. Generic drug: blood sugar diagnostic strips 1 each Refills: 0 kwsjibtv-zjubun-rzt6-D3-C-srinivasan 750-625-1,000 mg-mg-unit Tablet Take by mouth. Refills: 0 insulin aspart U-100 100 unit/mL (3 mL) Insulin Pen Commonly known as: NovoLOG Flexpen U-100 Insulin Inject 2-5 Units subcutaneously daily. 2-5 Units Quantity: 15 mL Refills: 3 Jardiance 25 mg tablet Take 25 mg by mouth daily. Generic drug: empagliflozin 25 mg Refills: 0 loratadine 10 mg Tablet Commonly known as: Claritin Take 10 mg by mouth as needed. 10 mg Refills: 0 metFORMIN 1,000 mg tablet Commonly known as: Glucophage Take 1,000 mg by mouth 2 times daily. 1,000 mg Refills: 0 * Novofine 32 32 gauge x 1/4 Needle Inject 1 each subcutaneously 2 times daily. Reported on 12/25/2016 Generic drug: Insulin Hutchinson (Disposable) 1 each Refills: 0 * Gerry Pen Needle 32 gauge x 5/32 Needle USE TWICE DAILY Generic drug: insulin needles (disposable) Refills: [address] capsule Commonly known as: PriLOSEC Take 1 capsule by mouth 2 times daily. 20 mg Quantity: 60 capsule Refills: 12 triamcinolone 0.1 % Cream Commonly known as: Kenalog Apply to areas of itching twice daily. Quantity: 80 g Refills: 0 * This list has 2 medication(s) that are the same as other medications prescribed for you. Read thedirections carefully, and ask your doctor or other care provider to review them with you. Follow-up: Future Appointments Date Time Provider Department Center 11/08/2024 3:30 PM Prosper Schmidt MD [facility] PCP Follow up: NOVEMBER 19, 2023 at 9:40 AM with MARY SAHA MD You have been referred to [facility]. You should be receiving a phone call to schedule a follow up to schedule this appointment. If you do not hear back within the next 24 hours, please call [facility] at [phone] to ensure that a follow up appointment as been set. Your Inpatient Doctor: MD Sandy Hogan MD Matthew C Hanna, MD Your Primary Care Provider: Ermias Teague, [employer] [phone] For questions regarding this document or issues relating to this hospitalization on the Medical Service, please contact your inpatient physician through the [facility] [employer] . Issues afterhours and on weekends will be handled by the Hospitalist staff on-call. documented in this encounter Medications at Time of Discharge Medication Sig Dispensed Refills Start Date End Date aspirin 81 mg chewable tablet Take 81 mg by mouth daily. 30 tablet 3 11/12/2023 atorvastatin (Lipitor) 80 mg tablet Take 1 tablet by mouth every evening. 90 tablet 3 11/11/2023 clopidogreL (Plavix) 75 mg tablet Take 1 tablet by mouth daily. 90 tablet 3 11/12/2023 nitroGLYcerin (Nitrostat) 0.[address] 1 tablet under the tongue every 5 minutes as needed for Chest pain. 90 tablet 12 11/11/2023 etanercept (EnbreL SureClick) Pen InjectorIndications :Psoriatic arthritis INJECT 1 PEN UNDER THE SKIN EVERY 7 DAYS. 4 mL 11 11/03/2023 calcipotriene (Dovonex) 0.005 % Cream Apply twice daily this to psoriasis in genital area 60 g 5 11/03/2023 fluticasone propionate (Flonase) 50 mcg/actuation Yale, Suspension 1-2 sprays by Each Nare route daily as needed. 10/15/2015 triamcinolone (Kenalog) 0.1 % Cream Apply to areas of itching twice daily. 80 g 07/17/2021 jirnulpk-ncczyd-sit 1-D3-C-srinivasan 750-625-1,000 mg-mg-unit Tablet Take 2 tablets by mouth 2 times daily. JARDIANCE 25 mg Tablet Take 25 mg by mouth daily. 0 01/05/2018 GERRY PEN NEEDLE 32 gauge x 5/32 NeedleIndications:P soriatic arthritis USE TWICE DAILY 0 08/05/2017 metFORMIN (GLUCOPHAGE) 1,000 mg Tablet Take 1,000 mg by mouth 2 times daily. 0 03/03/2015 NOVOFINE 32 32 x 1/4 Needle Inject 1 each subcutaneously 2 times daily. Reported on 12/25/2016 0 10/17/2014 ascorbic acid, Vitamin C, (Vitamin C) 250 mg Tablet Take 500 mg by mouth daily. loratadine (CLARITIN) 10 mg tablet Take 10 mg by mouth as needed. omeprazole (PRILOSEC) 20 mg capsule Take 1 capsule by mouth 2 times daily. 60 capsule 12 09/21/2012 spironolactone (Aldactone) 25 mg tablet Take 0.5 tablets by mouth daily for 60 days. 15 tablet 1 11/12/2023 01/11/2024 metoprolol succinate XL (Toprol-XL) 25 mg ER 24 hr tablet Take 1 tablet by mouth daily. 30 tablet 12 11/11/2023 12/17/2023 Lantus Solostar U-100 Insulin 100 unit/mL (3 mL) pen Please inject 21 units in the morning and 15 units at night. 5 mL 3 11/11/2023 12/16/2023 benzonatate (Tessalon) 100 mg capsule 10/31/2023 04/12/2024 insulin aspart U-100 (NOVOLOG FLEXPEN U-100 INSULIN) Insulin Pen Inject 2-5 Units subcutaneously daily. 15 mL 3 05/21/2018 12/16/2023 FREESTYLE LITE STRIPS Strip 1 each 3 times daily. 0 09/02/20142023 documented as of this encounter Progress Notes * Linda Anthony, PT - 11/11/2023 11:35 AM EST Physical Therapy Evaluation Patient profile: Ervin Helms is a 57 y.o. male admitted on 11/08/[address] Lexx Wynne MD transfer from [facility] ED with chest pressure, SOB. EKG demonstrated inferior ST elevations @ [facility] ED. Taken to cardiac analytical laboratory technician 11/08, R radial access and required thrombectomy, lysis, and MARCOS to Lcx. Patient with the following active problems: Past Medical History: Diagnosis Date Diabetes mellitus Past Surgical History: Procedure Laterality Date PRO UPPER GI ENDOSCOPY, BIOPSY 09/21/2012 UPPER GASTROINTESTINAL ENDOSCOPY,WITH BIOPSY SINGLE OR MULTIPLE performed by RAHEEL PINTO at [facility] PRO UPPER GI ENDOSCOPY, BIOPSY N/A 03/08/2019 EGD WITH BIOPSY (WRVU 2.49) performed by Raheel Pinto MD at [facility] UPPER GI ENDOSCOPY, EXAM 09/21/2012 UPPER GI ENDOSCOPY performed by RAHEEL PINTO at [facility] Social History: Lives in [place], [place] with Darcy Home set-up: 2 story home Stairs: FOS Baseline Mobility: Independent and working 2 jobs, drives. Equipment at home: none Fall history: denies Precautions/Special Considerations: Amb 5 min in hallway with supervision Healthy/Cardiac Diet; CHO counting Mobility and Positioning Recommendations: Pt demonstrating independence with ambulation and transfers ; continue per nursing until DC. Please encourage up to chair for meal times as able. Pt encouraged to ambulate with staff, getting into the bathroom & walking in lemons daily as able. 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 Objective: Pt seen for evaluation today. Pain: no c/o's Cardiopulmonary: HR: 122 bpm @ rest and 136 on stairs SpO2: 98 % RA @ rest and 91% climbing up stairs Mental Status: alert, oriented to person, place, and time Vision: reading glasses only Musculoskeletal: ROM/Strength: WFL Bed Mobility: Supine >< Sit: independent Transfers: Sit >< Stand: independent Gait: Distance: 2 laps around unit and on stairs without device, steady & independent. Stairs: up and down FOS steady and independent, mentioned ok to pace self. Balance: Standing / Gait: NORMAL- ambulatory without device and steady Education: patient has been educated on Safety , Role of therapy, and Discharge planning and brief discussion about him attending cardiac rehab: good education in addition to exercise class. Discussed beginning walks on level ground and f/u with cardiac rehab prior to returning to gym. Pt was left in recliner with call grey within reach and team arrived to let him know he's able to DC home today. Assessment: Pt was seen today for physical therapy evaluation. Pt presented to ED with SOB and chest pain and ruled in for STEMI and s/p analytical laboratory technician procedure thrombectomy and MARCOS to Left circumflex artery and no further deficits except activity tolerance which does not impact his ability to safely and independently perform functional mobility tasks including bed mobility, transfers, ambulation, andstair negotiation. He is agreeable to f/u with cardiac rehab program in [facility]. Plan: Therapy Frequency (PT): evaluation only. No further in-patient therapy needed, pt continue tomobilize with nurses while here; anticipate DC home today. Discharge Recommendations: Anticipated Discharge Disposition (PT): home (cardiac rehab @ [facility]) when medically ready for hospital discharge. Consult Recommendations: No other consults recommended at this time. Equipment needs: Anticipated Equipment Needs at Discharge (PT): None Goals achieved today: Pt. to perform bed mobility independently. Pt. to perform sit><stand transfers independently. Pt. to ambulate 5 min in hallway independently and with supervision , no AD and steady. Pt. to ambulate up/down flight of stairs independently and with supervision, cues to pace prn. Pt will tolerate activity progression with stable pain level & vital signs. Thank you for this consult. LINDA ANTHONY, PT Pager: [phone] Physical Therapy Inpatient Rehabilitation Department Time IN / OUT: 11:10-11:32 Total Minutes, Physical Therapy: 2016 PT Evaluation Code Rationale: Diagnosis & Pertinent Co-Morbidities, personal factors, and present illness affecting Plan of Care: (see above); Additional personal factors or co- morbidities that impact plan: Total # of Factors: 0 1-2 3+ x Examination of body system impairments, functional limitations and behaviors, and/or participation restrictions. Addressing 1-2 elements x Addressing 3 + elements Addressing 4 + elements Clinical presentation: See assessment above. Stable/Uncomplicated Evolving/Fluctuating Symptoms Unstable/Unpredictable x Clinical decision making of low complexity based on pt's functional performance as outlined in thisevaluation. * Lexx Wynne MD - 11/10/2023 7:31 AM EST Images from the original note were not included. Inpatient Cardiology Progress Note ID: Ervin Helms is a 57 y.o. male w/ PMH of T2DM, tobacco use, GERD w/ Huang's esophagitis, and psoriatic arthritis who presented to [facility] with 1-2 days of chest pressure and dyspnea, found to have inferior/lateral LUAN, given TNK, plavix, asa, and transferred to [facility] evening 11/08, found to have CTORCA, 100% mid-Lcx occlusion s/p MARCOS to LCx 11/08. Hospital Day 2 days Active Hospital Problems Diagnosis STEMI (ST elevation myocardial infarction) Resolved Hospital Problems No resolved problems to display. 24 Hour Events/Subjective: -Metoprolol held overnight due to soft SBP, concern for cardiogenic shock risk, asymptomatic from softer BP -wall taper troponin level >10,000 from 8138 -Denies chest pain, shortness of breath, palpitations this AM Inpatient Medications: Scheduled Meds: empagliflozin 25 mg Oral Daily insulin lispro 1-6 Units Subcutaneous TID AC insulin lispro 0-8 Units Subcutaneous TID WC iron sucrose 300 mg Intravenous Daily ascorbic acid (Vitamin C) 500 mg Oral Daily pantoprazole EC 40 mg Oral Daily sodium chloride 0.9 % (flush) 5 mL Intravenous BID insulin glargine (Lantus;Semglee) (100 unit/mL) subcutaneous injection 15 Units Subcutaneous Nightly insulin glargine (Lantus;Semglee) (100 unit/mL) subcutaneous injection 21 Units Subcutaneous Daily aspirin 81 mg Oral Daily clopidogreL 75 mg Oral Daily atorvastatin 80 mg Oral QPM enoxaparin 40 mg Subcutaneous Nightly Continuous Infusions: PRN Meds: influenza vaccine (6 mos-64 yrs)(PF), benzonatate, lidocaine, nitroGLYcerin, fluticasone propionate, acetaminophen, glucose 40% oral geL OR dextrose OR glucagon Vitals: Last value Range last 24 hrs Temperature Temp: 37 ??C (98.6 ??F) Temp: [36.9 ??C (98.4 ??F)-37.5 ??C (99.5 ??F)] Heart Rate Heart Rate: (!) 119 Heart Rate: [106-119] Blood Pressure BP: 110/69 BP: (94-111)/(61-78) Respiratory Rate Resp: 27 Resp: [18-29] SpO2 SpO2: 96 % SpO2: [95 %-99 %] Ins/Outs: Intake/Output Summary (Last 24 hours) at 11/10/2023 1422 Last data filed at 11/10/2023 1200 Gross per 24 hour Intake 1225 ml Output 750 ml Net 475 ml Patient Vitals for the past 168 hrs: Weight 11/10/23 0600 64.5 kg (142 lb 3.2 oz) 11/09/23 0559 66.4 kg (146 lb 4.8 oz) 11/08/23 1700 67 kg (147 lb 11.3 oz) Admit wt: 67 kg Physical Exam: Gen: NAD, A&Ox3 Neuro: CN II-VII grossly intact; no focal deficits grossly noted. HEENT: PERRLA, EOMI, sclera anicteric. Neck: Supple, no appreciable LAD, no thyromegaly CVS: RRR with normal S1/S2, no appreciable murmurs/rubs/gallops Pulm: CTA b/l, breathing non-labored with good air movement Ext: no edema/clubbing/cyanosis, peripheral pulses full and equal. Skin: Intact with no rashes, petechiae, or ecchymoses Laboratory: CBC: Recent Labs 11/10/23 0313 11/09/23 0331 11/08/23 1800 WBC 11.4* 13.4* 13.1* HGB 10.9* 11.5* 10.7* PLATELET 365* 359* 373* Chemistry: Recent Labs 11/10/23 0609 11/10/23 0313 11/09/23 0331 NA 137 136 134* K 3.6 Not Perf 4.3 CL 103 101 100 CO2 23 24 22 BUN 27* 27* 22* CREATININE 1.33 1.30 1.10 GLUCOSE 88 Not Perf 120 Recent Labs 11/10/23 0609 11/10/23 0313 11/09/23 0331 CALCIUM 9.1 8.9 9.0 MAGNESIUM -- 1.03 0.83 LFT's: Recent Labs 11/10/23 0313 11/09/23 1106 BILITOT 0.3 0.5 BILIDIR 0.1 0.2 ALBUMIN 4.0 4.2 ALKPHOS 92 100 ALT 52 71* AST 141* 291* Coags: No results for input(s): PT, INR, PTT, FIBRINOGEN, DDIMER in the last 168 hours. Invalid input(s): THROMBIN TIME Cardiac enzymes: No results for input(s): TROPONINT, CK in the last 7068 hours. Endocrine: Recent Labs 11/09/23 0331 TSH 1.84 Heme: No results for input(s): LDH, HAPTOGLOBIN, URICACID in the last 168 hours. Microbiology: None Diagnostic Studies: No results found for this visit on 11/08/23. EKG- 11/09 post-PCI [facility]/: Preliminary findings: Right dominant LM: mild LAD: mild Lcx: mid 100% RCA: mid 100%, distal vessel fills via collaterals from the left system LVEDP 15-18mm Hg Assessment & Plan: Ervin Helms is a 57 y.o. male w/ PMH of T2DM, tobacco use, GERD w/ Huang's esophagitis, and psoriatic arthritis who presents as a transfer from [facility] for an inferior STEMI s/p lysis (TNK) and nowPCI to LCx. Doing well s/p TNK, thrombectomy and PCI of Lcx, with resolution of his symptoms. Plan to continue monitoring, trend troponins to peak. TTE showed EF 28% with RCA territory wall motion abnormality. Will need to follow up with interventional cardiology for RCA intervention as outpatient. Borderline h ypotensive and tachycardic overnight into this morning, will hold beta-litzy and ARB. AM EKG did show improvement with decrease in extent of ST elevations. Will continue to monitor at least one more night due to concern for vitals. 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 of RCA - S/p ASA load, Plavix load (300 mg given lysis) - S/p TKA (35 mg) - Continue ASA 81 mg daily - Continue Plavix 75 mg daily (prasugrel contraindicated after lytics) - ct Atorvastatin 80 mg daily - hold metoprolol - hold valsartan - start spironolactone - Strict I/Os, K>4, Mg>1 - Continue telemetry Cardiac Risk Stratification: - HgbA1C - suboptimal - TSH wnl - Lipids wnl #T2DM, on insulin - Continue home glargine regimen: - 21 units QAM - 15 units QHS - moderate correctional and mealtime lispro - HOLD home metformin 1000 mg BID for now - Resume home Jardiance 25 mg daily #Tobacco Cessation - Refusing nicotine replacement therapy for now, will reach out if he feels cravings - Motivated to quit, will continue to encourage - offer chantix on discharge - consult to tobacco cessation #GERD w/ Huang's esophagus - Home omeprazole -> pantoprazole - Monitor daily CBC - ferritin 26, Tsat 13 - IV iron 300mg x3 days (11/09- #Psoriatic arthritis - Enbrel Qweek, last took 11/07 #Routine Diet: Carb Control diet 60/60/75 CHO counting level 2 DVT Prophylaxis: Lovenox SQ GI Prophylaxis: PPI Code Status: Attempt Cardiopulmonary Resuscitation - Inpatient Dispo: Pending clinical course Rafa Strange MD PGY1 Cardiology 11/10/23 Cardiology Attending Attestation/Addendum: Please see Rafa Strange MD's note for details of the patient history and data. I have discussed, independently reviewed the pertinent diagnostic information, and agree with the principal findings as documented in the History, Physical Findings, Assessment and Plan of Care. The assessment and plan were formulated in discussion with me. ID & Pertinent History: Mr. Helms is a 57 yo man who presented to OSH with chest pressure and found to have iSTEMI, underwent lysis. Found to have CARBON PAPER MACHINE OPERATOR of RCA and culprit thrombus in mid Lcx, underwent thrombectomy/PCI to mLCx. Major Issues Addressed: STEMI ASCVD, s/p Lcx PCI CARBON PAPER MACHINE OPERATOR RCA HTN DM2 HLD GERD Assessment & Plan: Reviewed echo; moderate to severely reduced LV systolic function. Severely elevated troponin. Findings suggestive of large CO. Cautious titration of GDMT. Pt appears euvolemic. Monitor on telemetry. Cardiac Rehab. Observe for mechanical complications. Possible DC home tomorrow. Date of Service 11/10/2023 Lexx Wynne MD, [facility] Staff [employer] * Lexx Wynne MD - 11/09/2023 10:40 AM EST Images from the original note were not included. Inpatient Cardiology Progress Note Hospital Day 1 day Active Hospital Problems Diagnosis STEMI (ST elevation myocardial infarction) Resolved Hospital Problems No resolved problems to display. ID: Ervin Helms is a 57 y.o. male w/ PMH of T2DM, tobacco use, GERD w/ Huang's esophagitis, and psoriatic arthritis who presented to [facility] with 1-2 days of chest pressure and dyspnea, found to have inferior/lateral LUAN, given TNK, plavix, asa, and transferred to [facility] evening 11/08, found to have CTORCA, 100% mid-Lcx occlusion s/p MARCOS to LCx 11/08. 24 Hour Events/Subjective: -transferred overnight with inferolateral stemi -found to have RCA mid-CARBON PAPER MACHINE OPERATOR, Lcx mid 100% occlusion, s/p MARCOS to Lcx -he reports symptoms have completely resolved and he is feeling well -Tachycardic this morning to 120s, sinus rhythm, normotensive, satting well on room air ROS: Denies fevers/chills, chest pain, shortness of breath, diarrhea/vomiting/abdominal pain/constipation, muscle aches or weakness. Inpatient Medications: Scheduled Meds: metoproloL tartrate 12.5 mg Oral Q6H ELMO empagliflozin 25 mg Oral Daily ascorbic acid (Vitamin C) 500 mg Oral Daily pantoprazole EC 40 mg Oral Daily sodium chloride 0.9 % (flush) 5 mL Intravenous BID insulin lispro 1-4 Units Subcutaneous TID AC insulin glargine (Lantus;Semglee) (100 unit/mL) subcutaneous injection 15 Units Subcutaneous Nightly insulin glargine (Lantus;Semglee) (100 unit/mL) subcutaneous injection 21 Units Subcutaneous Daily aspirin 81 mg Oral Daily clopidogreL 75 mg Oral Daily atorvastatin 80 mg Oral QPM enoxaparin 40 mg Subcutaneous Nightly Continuous Infusions: PRN Meds: influenza vaccine (6 mos-64 yrs)(PF), benzonatate, lidocaine, nitroGLYcerin, fluticasone propionate, acetaminophen, glucose 40% oral geL OR dextrose OR glucagon Vitals: Last value Range last 24 hrs Temperature Temp: 37.1 ??C (98.8 ??F) Temp: [36.9 ??C (98.4 ??F)-37.2 ??C (98.9 ??F)] Heart Rate Heart Rate: (!) 129 Heart Rate: [100-129] Blood Pressure BP: 104/74 BP: (98-137)/(52-89) Respiratory Rate Resp: 18 Resp: [12-23] SpO2 SpO2: 97 % SpO2: [96 %-100 %] Ins/Outs: Intake/Output Summary (Last 24 hours) at 11/09/2023 1040 Last data filed at 11/09/2023 0902 Gross per 24 hour Intake 745 ml Output 800 ml Net -55 ml Patient Vitals for the past 168 hrs: Weight 11/09/23 0559 66.4 kg (146 lb 4.8 oz) 11/08/23 1700 67 kg (147 lb 11.3 oz) Admit wt: 67 kg Physical Exam: Gen: NAD, A&Ox3 Neuro: CN II-VII grossly intact; no focal deficits grossly noted. HEENT: PERRLA, EOMI, sclera anicteric. Neck: Supple, no appreciable LAD, no thyromegaly CVS: RRR with normal S1/S2, no appreciable murmurs/rubs/gallops Pulm: CTA b/l, breathing non-labored with good air movement, no crackles/rhonchi or wheezes Abd: soft, NTND, normal bowel sounds, no abnormal masses or pulsations Ext: no edema/clubbing/cyanosis, peripheral pulses full and equal. Skin: Intact with no rashes, petechiae, or ecchymoses Laboratory: CBC: Recent Labs 11/09/23 03311/08/23 1800 WBC 13.4* 13.1* HGB 11.5* 10.7* PLATELET 359* 373* Chemistry: Recent Labs 11/09/23 03311/08/23 1800 NA 134* 136 K 4.3 3.5 CL 100 101 CO2 22 22 BUN 22* 20 CREATININE 1.10 0.97 GLUCOSE 120 93 Recent Labs 11/09/23 03311/08/23 1800 CALCIUM 9.0 8.7 MAGNESIUM 0.83 -- LFT's: No results for input(s): BILITOT, BILIDIR, ALBUMIN, ALKPHOS, ALT, AST in the last 7068 hours. Coags: No results for input(s): PT, INR, PTT, FIBRINOGEN, DDIMER in the last 168 hours. Invalid input(s): THROMBIN TIME Cardiac enzymes: No results for input(s): TROPONINT, CK in the last 7068 hours. Endocrine: Recent Labs 11/09/23 0331 TSH 1.84 Heme: No results for input(s): LDH, HAPTOGLOBIN, URICACID in the last 168 hours. Microbiology: None Diagnostic Studies: No results found for this visit on 11/08/23. EKG- 11/09 post-PCI C1/: Preliminary findings: Right dominant LM: mild LAD: mild Lcx: mid 100% RCA: mid 100%, distal vessel fills via collaterals from the left system LVEDP 15-18mm Hg Assessment & Plan: Ervin Helms is a 57 y.o. male w/ PMH of T2DM, tobacco use, GERD w/ Huang's esophagitis, and psoriatic arthritis who presents as a transfer from [facility] for an inferior STEMI s/p lysis (TNK) and nowPCI to LCx. Doing well s/p TNK, thrombectomy and PCI of Lcx, with resolution of his symptoms. Plan to continue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 GLUCOSE Routine 11/11/2023 7:24 AM EST POCT GLUCOSE Routine 11/11/2023 3:48 AM EST HEMOGRAM Routine 11/11/2023 3:13 AM EST DIFFERENTIAL, AUTOMATED Routine 11/11/19 3:13 AM EST CBC (WITH DIFF) Routine 11/11/2023 3:13 AM EST MAGNESIUM Routine 11/11/2023 3:13 AM EST HEPATIC FUNCTION PANEL Routine 4 3:13 AM EST BASIC METABOLIC PANEL Routine 11/11/2023 3:13 AM EST POCT GLUCOSE Routine 11/10/2023 7:38 PM EST TROPONIN - SERIES STAT 11/10/2023 7:1 9 PM EST TROPONIN - SERIES STAT 11/10/2023 3:3 0 PM EST POCT GLUCOSE Routine 11/10/2023 3:26 PM EST POCT GLUCOSE Routine 11/10/2023 11:22 AM EST EKG 12-LEAD Routine 11/10/2023 8:[address] elevation myocardial infarction (STEMI), unspecified artery POCT GLUCOSE Routine 11/10/2023 7:37 AM EST BASIC METABOLIC PANEL Routine 11/10/2023 6:09 AM EST TROPONIN - SERIES Routine 11/10/2023 3:1 3 AM EST HEMOGRAM Routine 11/10/2023 3:13 AM EST DIFFERENTIAL, AUTOMATED Routine 11/10/19 24 3:13 AM EST CBC (WITH DIFF) Routine 11/10/2023 3:13 AM EST PRO-BRAIN NATRIURETIC PEPTIDE Routine 11/10/2023 3:13 AM EST MAGNESIUM Routine 11/10/2023 3:13 AM EST HEPATIC FUNCTION PANEL Routine 4 3:13 AM EST BASIC METABOLIC PANEL Routine 11/10/2023 3:13 AM EST POCT GLUCOSE Routine 11/09/2023 8:37 PM EST POCT GLUCOSE Routine 11/09/2023 4:39 PM EST U ALBUMIN/CRE RATIO Routine 11/09/2023 4 :29 PM EST TROPONIN - SERIES Routine 11/09/2023 2:5 0 PM EST ECHO COMPLETE W CONTRAST Routine 11/09/2023 2:[address] elevation myocardial infarction (STEMI), unspecified artery POCT GLUCOSE Routine 11/09/2023 12:05 PM EST TROPONIN - SERIES Routine 11/09/2023 11: 06 AM EST IRON AND TIBC Routine 11/09/2023 11:06 AM EST FERRITIN Routine 11/09/2023 11:06 AM EST HEPATIC FUNCTION PANEL Routine 11:06 AM EST POCT GLUCOSE Routine 11/09/2023 7:37 AM EST SCAN, PERIPHERAL BLOOD Routine 3:31 AM EST HEMOGRAM Routine 11/09/2023 3:31 AM EST DIFFERENTIAL, AUTOMATED Routine 11/09/19 3:31 AM EST CBC (WITH DIFF) Routine 11/09/2023 3:31 AM EST TSH Routine 11/09/2023 3:31 AM EST MAGNESIUM Routine 11/09/2023 3:31 AM EST HEMOGLOBIN A1C Routine 11/09/2023 3:31 AM EST LIPID PANEL (REFLEX DIRECT LDL) Routine 11/09/2023 3:31 AM EST BASIC METABOLIC PANEL Routine 11/09/2023 3:31 AM EST EKG 12-LEAD STAT 11/08/2023 11:[address] elevation myocardial infarction (STEMI), unspecified artery POCT GLUCOSE Routine 11/08/2023 10:14 PM EST CARDIAC CATHETERIZATION Routine 11/08/19 7:[address] elevation myocardial infarction (STEMI), unspecified artery EKG 12-LEAD Routine 11/08/2023 6:54 PM EST Coronary artery disease, unspecified vessel or lesion type, unspecified whether angina present, unspecified whether [place] coy[place] or transplanted heart POCT GLUCOSE Routine 11/08/2023 6:03 PM EST SCAN, PERIPHERAL BLOOD STAT 6:00 PM EST HEMOGRAM STAT 11/08/2023 6:00 PM EST DIFFERENTIAL, AUTOMATED STAT 11/08/19 6:00 PM EST CBC (WITH DIFF) STAT 11/08/2023 6:00 PM EST BASIC METABOLIC PANEL Routine 11/08/2023 6:00 PM EST documented in this encounter Results * POCT Glucose (11/11/2023 12:14 PM EST) [facility] Signature Glucose, POC 166 65 - 199 mg/dL [facility] Comment: Supplemental ranges: <140 mg/dL before meals <180 mg/dL all other times of the day Blood 11/11/2023 12:1 4 PM EST 11/11/2023 12:14 PM EST Lexx Wynne MD POINT OF CARE TEST O RDERAJOEL Performing Organization Address [facility] Co de Phone Number [facility] [place] [place] [address] * POCT Glucose (11/11/2023 7:24 AM EST) Glucose, POC 127 65 - 199 mg/dL [facility] Comment: Supplemental ranges: <140 mg/dL before meals <180 mg/dL all other times of the day Blood 11/11/2023 7:24 AM EST 11/11/2023 7:24 AM EST Lexx Wynne MD POINT OF CARE TEST O ROBBY Performing Organization Address [facility] Co de Phone Number [facility] [place] [address] * POCT Glucose (11/11/2023 3:48 AM EST) Glucose, POC 199 65 - 199 mg/dL [facility] Comment: Supplemental ranges: <140 mg/dL before meals <180 mg/dL all other times of the day Blood 11/11/2023 3:48 AM EST 11/11/2023 3:48 AM EST Lexx Wynne MD POINT OF CARE TEST O RDERAJOEL Performing Organization Address [facility] Co de Phone Number [facility] [place] [address] * (ABNORMAL) Differential, Automated (11/11/2023 3:13 AM EST) Neutrophil % 63.8 % [facility] Neutrophil Absolute 6.11(H) 1.70 - 6.10 x10(3)/mc L [facility] Lymph % 20.1 % [facility] Lymphocytes Abs 1.9 0.9 - 3.2 x10(3)/mc L [facility] Monocyte % 12.5 % [facility] Monocyte Abs 1.2(H) 0.3 - 0.9 x10(3)/mc L [facility] Eos % 2.7 % [facility] Eosinophils Abs 0.3 0.0 - 0.4 x10(3)/mc L [facility] Basophil % 0.4 % [facility] Baso Absolute 0.0 0.0 - 0.1 x10(3)/mc L [facility] Immature Gran % 0.50 % [facility] Comment: Immature granulocytes(IG's)percentage and absolute count will include metamyelocytes, myelocytes, and promyelocytes. Blood smears from CBCs yielding IG's will be scanned manually for concordance. If this scan disagrees with the automated IG or if promyelocytes are noted, a manual differential will be performed. Immature Gran Absolute 0.05(H) 0.00 - 0.04 x10(3)/ L [facility] Blood 11/11/2023 3:13 AM EST 11/11/2023 3:23 AM EST Narrative Resulting Agency Comment Spec In Lab Lucy Herring MD HEMATOLOGY ORDERABLE S Performing Organization Address City/State/[facility] Co de Phone Number [facility] [place] [address] * (ABNORMAL) Hemogram (11/11/2023 3:13 AM EST) White Blood Cell 9.6(H) 4.0 - 9.5 x10(3)/ L [facility] Red Blood Cell 4.17(L) 4.58 - 5.54 x10(6)/[facility] Hemoglobin 10.2(L) 13.7 - 16.5 g/dL [facility] Hematocrit 31.9(L) 40.5 - 48.5 % [facility] Mean Cell Volume 76.5(L) 82.9 - 93.1 fL [facility] Mean Cell Hemoglobin 24.5(L) 27.5 - 32.1 pg [facility] Mean Cell Hemoglobin Concentration 32.0 32.0 - 35.7 g/dL [facility] Platelet 328 145 - 357 x10(3)/[facility] RDW Standard Deviation 42.7 36.0 - 45.0 fL [facility] RDW coefficient of variation 15.6(H) 11.4 - 13.8 % [facility] Mean Platelet Volume 9.2 7.6 - 12.9 fL [facility] NRBC% auto 0.0 % [facility] NRBC Absolute 0.000 0.000 - 0.000 x10(3)/mc L [facility] Blood 11/11/2023 3:13 AM EST 11/11/2023 3:23 AM EST Narrative Resulting Agency Comment Spec In Lab Lucy Herring MD HEMATOLOGY ORDERABLE S Performing Organization Address [facility] de Phone Number [facility] [place] [address] * (ABNORMAL) Hepatic Function Panel (11/11/2023 3:13 AM EST) Protein, Total 6.4 6.1 - 8.0 g/dL [facility] Albumin 3.7 3.2 - 5.2 g/dL [facility] Aspartate Aminotransferase 70(H) 0 - 39 unit/L [facility] Alanine Aminotransferase 37 0 - 55 unit/L [facility] Alkaline Phosphatase 96 40 - 130 unit/L [facility] Bilirubin, Total <0.2(L) 0.2 - 1.3 mg/dL [facility] Bilirubin, Direct 0.1 0.0 - 0.3 mg/dL [facility] Blood 11/11/2023 3:13 AM EST 11/11/2023 3:23 AM EST Narrative Resulting Agency Comment Spec In Lab Lexx Wynne MD CHEMISTRY ORDERABLES Performing Organization Address [facility] de Phone Number [facility] [place] [address] * Magnesium (11/11/2023 3:13 AM EST) Magnesium 0.99 0.69 - 1.07 mmol/L [facility] Blood 11/11/2023 3:13 AM EST 11/11/2023 3:23 AM EST Narrative Resulting Agency Comment Spec In Lab Lexx Wynne MD CHEMISTRY ORDERABLES Performing Organization Address [facility]/ZIP Co de Phone Number [facility] [place] [address] * (ABNORMAL) Basic Metabolic Panel (non-fasting) (11/11/2023 3:13 AM EST) Glucose 235(H) 65 - 199 mg/dL [facility] Comment: result rechecked-ssc Diabetes: >=200 mg/dL plus symptoms Blood Urea Nitrogen 25(H) 10 - 20 mg/dL [facility] Creatinine 1.44 0.80 - 1.50 mg/dL [facility] Sodium 134(L) 135 - 145 mmol/L [facility] Potassium 3.9 3.5 - 5.0 mmol/L [facility] Comment: Please note: ??Patients with WBC >100,000 may have falsely elevated Potassium levels. ??For accurate Potassium quantification in these patients send serum separator tube (gold top) for subsequent determinations. ??Contact the Clinical Chemistry Laboratory if there are any questions. Chloride 100 98 - 107 mmol/L [facility] Carbon Dioxide 24 22 - 31 mmol/L [facility] Anion Gap 10 5 - 15 mmol/L [facility] Calcium 8.7 8.5 - 10.5 mg/dL [facility] Est Glomerular Filtration Rate 57(L) >=60 mL/min/1. 73 m?? [facility] Comment: This patient's estimated GFR was [...] In Lab Lexx Wynne MD CHEMISTRY ORDERABLES [facility] [place] [place] [address] * (ABNORMAL) POCT Glucose (11/10/2023 7:38 PM EST) Glucose, POC 208(H) 65 - 199 mg/dL [facility] Comment: Supplemental ranges: <140 mg/dL before meals <180 mg/dL all other times of the day Blood 11/10/2023 7:38 PM EST 11/10/2023 7:38 PM EST Lexx Wynne MD POINT OF CARE TEST O RDERABLES [facility] [address] [place] [address] * (ABNORMAL) Troponin (11/10/2023 7:19 PM EST) Troponin-T, High Sensitivity 8,806(H) <=22 ng/L [facility] Comment: This patient's troponin T concentration was determined using the Shira 5th Generation troponin T assay. The 99th percentile for Troponin T for this test is 14 ng/L for females, and 22 ng/L for males. According to the fourth universal definition of myocardial infarction, the term acute myocardial infarction should be used when there is acute myocardial injury with clinical evidence of acute myocardial ischemia and with detection of a rise and/or fall of cardiac troponin values with at least one value above the 99th percentile and at least one of the following: - Symptoms of myocardial ischemia; - New ischemic ECG changes; - Development of pathological Q waves; - Imaging evidence of new loss of viable myocardium or new regional wall motion abnormality in a pattern consistent with an ischemic etiology; - Identification of a coronary thrombus by angiography or autopsy (not for type 2 or 3 MIs) Serial measurement of troponin and the change in troponin concentration over time (delta) is crucial for the diagnosis of acute myocardial infarction. Guidance on the interpretation of the new 5th Generation Troponin T values and the delta troponin value can be found in the [facility] Test Catalog Troponin - [facility] Test Catalog Reference: Fourth [place] Definition of Myocardial Infarction. Journal of the [employer] 2018;72:6338-2782 Blood 11/10/2023 7:19 PM EST 11/10/2023 7:28 PM EST Narrative Resulting Agency Comment Spec In Lab Lexx Wynne MD CHEMISTRY ORDERABLES [facility] [place] [address] * (ABNORMAL) Troponin (11/10/2023 3:30 PM EST) Troponin-T, High Sensitivity 8,840(H) <=22 ng/L [facility] Comment: This patient's troponin T concentration was determined using the Shira 5th Generation troponin T assay. The 99th percentile for Troponin T for this test is 14 ng/L for females, and 22 ng/L for males. According to the fourth universal definition of myocardial infarction, the term acute myocardial infarction should be used when there is acute myocardial injury with clinical evidence of acute myocardial ischemia and with detection of a rise and/or fall of cardiac troponin values with at least one value above the 99th percentile and at least one of the following: - Symptoms of myocardial ischemia; - New ischemic ECG changes; - Development of pathological Q waves; - Imaging evidence of new loss of viable myocardium or new regional wall motion abnormality in a pattern consistent with an ischemic etiology; - Identification of a coronary thrombus by angiography or autopsy (not for type 2 or 3 MIs) Serial measurement of troponin and the change in troponin concentration over time (delta) is crucial for the diagnosis of acute myocardial infarction. Guidance on the interpretation of the new 5th Generation Troponin T values and the delta troponin value can be found in the [facility] Test Catalog Troponin - [facility] Test Catalog Reference: Fourth [place] Definition of Myocardial Infarction. Journal of the [employer] 2018;72:9690-1983 Blood 11/10/2023 3:30 PM EST 11/10/2023 3:45 PM EST Narrative Resulting Agency Comment Spec In Lab Lexx Wynne MD CHEMISTRY ORDERABLES [facility] [place] [place] [address] * POCT Glucose (11/10/2023 3:26 PM EST) Glucose, POC 153 65 - 199 mg/dL [facility] Comment: Supplemental ranges: <140 mg/dL before meals <180 mg/dL all other times of the day Blood 11/10/2023 3:26 PM EST 11/10/2023 3:26 PM EST Lexx Wynne MD POINT OF CARE TEST O ROBBY Performing Organization Address [facility] Co de Phone Number [facility] [place] [address] * POCT Glucose (11/10/2023 11:22 AM EST) Glucose, POC 140 65 - 199 mg/dL [facility] Comment: Supplemental ranges: <140 mg/dL before meals <180 mg/dL all other times of the day Blood 11/10/2023 11:2 2 AM EST 11/10/2023 11:22 AM EST Lexx Wynne MD POINT OF CARE TEST Erika BUSTAMANTE Performing Organization Address [facility] Co de Phone Number [facility] [place] [address] * EKG 12 Lead (11/10/2023 8:23 AM EST) Ventricular rate 112 BPM MUSE SYSTEM Atrial Rate 112 BPM MUSE SYSTEM P-R Interval 190 ms MUSE SYSTEM QRS Duration 96 ms MUSE SYSTEM Q-T Interval 322 ms MUSE SYSTEM QTC Calculated (Bezet) 439 ms MUSE SYSTEM Calculated P Ladson 65 degrees MUSE SYSTEM Calculated R Ladson 23 degrees MUSE SYSTEM Calculated T Ladson 16 degrees MUSE SYSTEM INTERPRETATION Sinus tachycardia Indeterminate axis Inferior-posterio r infarct (cited on or before 08-NOV-2023) ACUTE CO / STEMI Abnormal ECG When compared with ECG of 08-NOV-2023 23:23, Criteria for Lateral infarct are no longer Present Serial changes of evolving Inferior-posterio r infarct Present I personally reviewed the tracing and edited the fellows interpretation Confirmed by fellow MD Ana, Rayo ([id number]) on 11/10/2023 3:00:11 PM Confirmed by MD NICHOLAS DAVID ([id number]) on 11/10/2023 4:24:44 PM MUSE SYSTEM 11/10/2023 8:23 AM EST 11/10/2023 4:24 PM EST Lexx Wynne MD ECG ORDERABLES MUSE SYSTEM * POCT Glucose (11/10/2023 7:37 AM EST) Glucose, POC 123 65 - 199 mg/dL [facility] Comment: Supplemental ranges: <140 mg/dL before meals <180 mg/dL all other times of the day Blood 11/10/2023 7:37 AM EST 11/10/2023 7:37 AM EST Lexx Wynne MD POINT OF CARE TEST O RDERABLES Performing Organization Address [facility] Co de Phone Number [facility] [place] [address] * (ABNORMAL) Basic Metabolic Panel (non-fasting) (11/10/2023 6:09 AM EST) Glucose 88 65 - 199 mg/dL [facility] Comment:Diabetes: >=200 mg/d L plus symptoms Blood Urea Nitrogen 27(H) 10 - 20 mg/dL [facility] Creatinine 1.33 0.80 - 1.50 mg/dL [facility] Sodium 137 135 - 145 mmol/L [facility] Potassium 3.6 3.5 - 5.0 mmol/L [facility] Comment: Please note: ??Patients with WBC >100,000 may have falsely elevated Potassium levels. ??For accurate Potassium quantification in these patients send serum separator tube (gold top) for subsequent determinations. ??Contact the Clinical Chemistry Laboratory if there are any questions. Chloride 103 98 - 107 mmol/L [facility] Carbon Dioxide 23 22 - 31 mmol/L [facility] Anion Gap 11 5 - 15 mmol/L [facility] Calcium 9.1 8.5 - 10.5 mg/dL [facility] Est Glomerular Filtration Rate 63 >=60 mL/min/1. 73 m?? [facility] Comment: This patient's estimated [...] and symptoms in addition to eGFR. Blood 11/10/2023 6:09 AM EST 11/10/2023 6:23 AM EST Narrative Resulting Agency Comment Spec In Lab Lexx Wynne MD CHEMISTRY ORDERABLES [facility] [place] [place] [address] * (ABNORMAL) Differential, Automated (11/10/2023 3:13 AM EST) Neutrophil % 69.8 % [facility] Neutrophil Absolute 7.96(H) 1.70 - 6.10 x10(3)/mc L [facility] Lymph % 17.6 % [facility] Lymphocytes Abs 2.0 0.9 - 3.2 x10(3)/mc L [facility] Monocyte % 11.0 % [facility] Monocyte Abs 1.2(H) 0.3 - 0.9 x10(3)/mc L [facility] Eos % 0.8 % [facility] Eosinophils Abs 0.1 0.0 - 0.4 x10(3)/mc L [facility] Basophil % 0.4 % [facility] Baso Absolute 0.0 0.0 - 0.1 x10(3)/mc L [facility] Immature Gran % 0.40 % [facility] Comment: Immature granulocytes(IG's)percentage and absolute count will include metamyelocytes, myelocytes, and promyelocytes. Blood smears from CBCs yielding IG's will be scanned manually for concordance. If this scan disagrees with the automated IG or if promyelocytes are noted, a manual differential will be performed. Immature Gran Absolute 0.05(H) 0.00 - 0.04 x10(3)/mc L [facility] Blood 11/10/2023 3:13 AM EST 11/10/2023 4:49 AM EST Narrative Resulting Agency Comment Spec In Lab Lucy Herring MD HEMATOLOGY ORDERABLE S [facility] [place] [place] [address] * (ABNORMAL) Hemogram (11/10/2023 3:13 AM EST) White Blood Cell 11.4(H) 4.0 - 9.5 x10(3)/mc L [facility] Red Blood Cell 4.45(L) 4.58 - 5.54 x10(6)/mc L [facility] Hemoglobin 10.9(L) 13.7 - 16.5 g/dL [facility] Hematocrit 33.8(L) 40.5 - 48.5 % [facility] Mean Cell Volume 76.0(L) 82.9 - 93.1 fL [facility] Mean Cell Hemoglobin 24.5(L) 27.5 - 32.1 pg [facility] Mean Cell Hemoglobin Concentration 32.2 32.0 - 35.7 g/dL [facility] Platelet 365(H) 145 - 357 x10(3)/mc L [facility] RDW Standard Deviation 42.4 36.0 - 45.0 fL [facility] RDW coefficient of variation 15.6(H) 11.4 - 13.8 % [facility] Mean Platelet Volume 9.0 7.6 - 12.9 fL [facility] NRBC% auto 0.0 % [facility] NRBC Absolute 0.000 0.000 - 0.000 x10(3)/mc L [facility] Blood 11/10/2023 3:13 AM EST 11/10/2023 4:49 AM EST Narrative Resulting Agency Comment Spec In Lab Lucy Herring MD HEMATOLOGY ORDERABLE S Performing Organization Address City/[facility]/ZIP Co de Phone Number [facility] [place] [address] * Magnesium (11/10/2023 3:13 AM EST) Magnesium 1.03 0.69 - 1.07 mmol/L [facility] Blood 11/10/2023 3:13 AM EST 11/10/2023 4:49 AM EST Narrative Resulting Agency Comment Spec In Lab Lexx Wynne MD CHEMISTRY ORDERABLES [facility] [place] [address] * (ABNORMAL) Basic Metabolic Panel (non-fasting) (11/10/2023 3:13 AM EST) Glucose Not Perf 65 - 199 [facility] Comment: Sample improperly processed prior to receipt. Diabetes: >=200 mg/dL plus symptoms Blood Urea Nitrogen 27(H) 10 - 20 mg/dL [facility] Creatinine 1.30 0.80 - 1.50 mg/dL [facility] Sodium 136 135 - 145 mmol/L [facility] Potassium Not Perf 3.5 - 5.0 [facility] Comment: Sample improperly processed prior to receipt. Please note: ??Patients with WBC >100,000 may have falsely elevated Potassium levels. ??For accurate Potassium quantification in these patients send serum separator tube (gold top) for subsequent determinations. ??Contact the Clinical Chemistry Laboratory if there are any questions. Chloride 101 98 - 107 mmol/L [facility] Carbon Dioxide 24 22 - 31 mmol/L [facility] Anion Gap 11 5 - 15 mmol/L [facility] Calcium 8.9 8.5 - 10.5 mg/dL [facility] Est Glomerular Filtration Rate 64 >=60 mL/min/1. 73 m?? [facility] Comment: This patient's estimated GFR was [...] and symptoms in addition to eGFR. Blood 11/10/2023 3:13 AM EST 11/10/2023 4:49 AM EST Narrative Resulting Agency Comment Spec In Lab Lexx Wynne MD CHEMISTRY ORDERABLES Performing Organization Address [facility] de Phone Number [facility] [place] [place] [address] * (ABNORMAL) Hepatic Function Panel (11/10/2023 3:13 AM EST) Protein, Total 6.9 6.1 - 8.0 g/dL [facility] Albumin 4.0 3.2 - 5.2 g/dL [facility] Aspartate Aminotransferase 141(H) 0 - 39 unit/L [facility] Alanine Aminotransferase 52 0 - 55 unit/L [facility] Alkaline Phosphatase 92 40 - 130 unit/L [facility] Bilirubin, Total 0.3 0.2 - 1.3 mg/dL [facility] Bilirubin, Direct 0.1 0.0 - 0.3 mg/dL [facility] Blood 11/10/2023 3:13 AM EST 11/10/2023 4:49 AM EST Narrative Resulting Agency Comment Spec In Lab Lexx Wynne MD CHEMISTRY ORDERABLES Performing Organization Address [facility] Phone Number [facility] [place] [address] * (ABNORMAL) Troponin (11/10/2023 3:13 AM EST) [facility] Signature Troponin-T, High Sensitivity >10,000(H ) <=22 ng/L [facility] Comment: This patient's troponin T concentration was determined using the Shira 5th Generation troponin T assay. The 99th percentile for Troponin T for this test is 14 ng/L for females, and 22 ng/L for males. According to the fourth universal definition of myocardial infarction, the term acute myocardial infarction should be used when there is acute myocardial injury with clinical evidence of acute myocardial ischemia and with detection of a rise and/or fall of cardiac troponin values with at least one value above the 99th percentile and at least one of the following: - Symptoms of myocardial ischemia; - New ischemic ECG changes; - Development of pathological Q waves; - Imaging evidence of new loss of viable myocardium or new regional wall motion abnormality in a pattern consistent with an ischemic etiology; - Identification of a coronary thrombus by angiography or autopsy (not for type 2 or 3 MIs) Serial measurement of troponin and the change in troponin concentration over time (delta) is crucial for the diagnosis of acute myocardial infarction. Guidance on the interpretation of the new 5th Generation Troponin T values and the delta troponin value can be found in the [facility] Test Catalog Troponin - [facility] Test Catalog Reference: Fourth Onida Definition of Myocardial Infarction. Journal of the [employer] 2018;72:8279-4380 Blood 11/10/2023 3:13 AM EST 11/10/2023 4:49 AM EST Narrative Resulting Agency Comment Spec In Lab Lexx Wynne MD CHEMISTRY ORDERABLES Performing Organization Address [facility] Co de Phone Number [facility] [place] [address] * (ABNORMAL) pro-Brain Natriuretic Peptide (11/10/2023 3:13 AM EST) NT-proBNP 1,141(H) <=124 pg/mL [facility] Blood 11/10/2023 3:13 AM EST 11/10/2023 4:49 AM EST Narrative Resulting Agency Comment Spec In Lab Lexx Wynne MD CHEMISTRY ORDERABLES Performing Organization Address [facility] de Phone Number [facility] [place] [address] * POCT Glucose (11/09/2023 8:37 PM EST) Glucose, POC 134 65 - 199 mg/dL [facility] Comment: Supplemental ranges: <140 mg/dL before meals <180 mg/dL all other times of the day Blood 11/09/2023 8:37 PM EST 11/09/2023 8:37 PM EST Lexx Wynne MD POINT OF CARE TEST O RDERABLES Performing Organization Address [facility]/ZIP Co de Phone Number [facility] [place] [address] * POCT Glucose (11/09/2023 4:39 PM EST) Glucose, POC 149 65 - 199 mg/dL [facility] Comment: Supplemental ranges: <140 mg/dL before meals <180 mg/dL all other times of the day Blood 11/09/2023 4:39 PM EST 11/09/2023 4:39 PM EST Lexx Wynne MD POINT OF CARE TEST O RDERABLES Performing Organization Address [facility] Co de Phone Number [facility] [place] [address] * U Albumin/Cre Ratio (11/09/2023 4:29 PM EST) Albumin / Creatinin Ratio, Urine Not Calculated 0 - 29 mcg/mg Cr [facility] Comment: Reference Ranges: <30 mcg/mg: Normal [...] 2, 357? 362 Albumin, Urine <3.0 mg/L [facility] Creatinine, Urine 52 mg/dL [facility] Urine 11/09/2023 4:29 PM EST 11/09/2023 4:41 PM EST Narrative Resulting Agency Comment Spec In Lab Lexx Wynne MD URINE ORDERABLES Performing Organization Address City/[facility]/ZIP Co de Phone Number [facility] [place] [address] * (ABNORMAL) Troponin (11/09/2023 2:50 PM EST) Troponin-T, High Sensitivity 8,138(H) <=22 ng/L [facility] Comment: This patient's troponin T concentration was determined using the Shira 5th Generation troponin T assay. The 99th percentile for Troponin T for this test is 14 ng/L for females, and 22 ng/L for males. According to the fourth universal definition of myocardial infarction, the term acute myocardial infarction should be used when there is acute myocardial injury with clinical evidence of acute myocardial ischemia and with detection of a rise and/or fall of cardiac troponin values with at least one value above the 99th percentile and at least one of the following: - Symptoms of myocardial ischemia; - New ischemic ECG changes; - Development of pathological Q waves; - Imaging evidence of new loss of viable myocardium or new regional wall motion abnormality in a pattern consistent with an ischemic etiology; - Identification of a coronary thrombus by angiography or autopsy (not for type 2 or 3 MIs) Serial measurement of troponin and the change in troponin concentration over time (delta) is crucial for the diagnosis of acute myocardial infarction. Guidance on the interpretation of the new 5th Generation Troponin T values and the delta troponin value can be found in the [facility] Test Catalog Troponin - [facility] Test Catalog Reference: Fourth Onida Definition of Myocardial Infarction. Journal of the [employer] 2018;72:2631-4290 Blood 11/09/2023 2:50 PM EST 11/09/2023 2:54 PM EST Narrative Resulting Agency Comment Spec In Lab Lexx Wynne MD CHEMISTRY ORDERABLES Performing Organization Address City/State/[facility] Co de Phone Number [facility] [place] [address] * ECHO COMPLETE W CONTRAST (11/09/2023 2:45 PM EST) Anatomical Region Laterality Modality Cardiac Other 11/09/2023 1:05 PM EST Narrative 11/09/2023 7:53 PM EST ? Version: 1 Name: ERVIN HELMS ?Study Date: 11/09/2023, 1: 05 PM ?BP: 104 / 77 mmHg : 1965 (MM/DD/YYYY) ? Height: 71 cm ? Age: 57 Years ? Weight: 111.584 kg Gender: Male ?BSA: 1.17 m?? Ordering Physician: SANDY TYLER Referring Physician: SANDY TYLER Performed By: Linda Arnold [facility] Exam Location: [facility]. ? Conclusions Normal left ventricular size with severely reduced LV systolic function. LV ejection fraction 28%. RCA territory wall motion abnormality. Normal right ventricular size and function. No significant valvular abnormalities. No prior echoes available for comparison. Procedure Complete-[id number]. Image enhancement Optison was used for left ventricular opacification. Left Ventricle Left ventricle is of normal size. Wall thickness is normal. Left ventricular systolic function is severely reduced. The left ventricular ejection fraction is 28% by Spangler's biplane. There are segmental wall motion abnormalities. Right Ventricle The right ventricle is of normal size. Right ventricular function is probably normal. Aortic Valve The aortic valve is probably trileaflet. The aortic valve is mildly thickened. Mitral Valve The mitral valve is structurally normal. There is no mitral stenosis. There is trace mitral regurgitation. Tricuspid Valve The tricuspid valve is structurally normal. There is mild tricuspid regurgitation. Pulmonic Valve There is no valvular pulmonic stenosis. Great Arteries The aortic root is of normal size. No abnormalities are identified. Ascending aorta is normal in size. No abnormalities of the pulmonary artery are identified. Venous Inferior vena cava is normal in size. Inferior vena cava collapse greater than 50% with respiration. Pericardium/Pleural The pericardium appears normal. Hemodynamics The peak right ventricular systolic pressure is 24.1 mmHg . The estimated right atrial pressure is 3mmHg. Unable to assess diastolic function. Ejection Fraction ? 2D Measurements ? Volume ??s ? IVSd: 0.82 cm EF(MOD-bp): 27.9 % ? LVIDd: 4.3 cm ? LVIDs: 4.2 cm ? LAV(MOD-bp) Indexed: 25.7 ml/m? LVPWd: 0.72 cm ? RA A4Cs_phl: 9.2 cm? LV mass(C)d: 99.4 grams ? EDV(MOD-sp4): 111.3 ml ? Ao root diam: 3.3 cm ? ESV(MOD-sp4): 74.3 ml ? asc Aorta Diam: 3.3 cm ? EDV(MOD-sp2): 119.0 ml ? ESV(MOD-sp2): 89.0 ml ? EDV (MOD-sp4) index: 95.0 ? TAPSE_phl: 1.57 cm ? EDV (MOD-sp4) index: 95.0 ? ESV (MOD-sp4) index: 63.4 ? ESV (MOD-sp2) index: 76.0 Doppler ? 3D/Strain/ TomTec TR max julia: 229.7 cm/sec RVSP(TR): 24.1 mmHg I ?WMSI ??= ??2.06 ? % Normal ??= ?? 31% X - ?1 - ? 2 - ?3 - ?4 - ? 5 - ?Segments ? Size Cannot Interpret ??Normal ? Hypokinetic ?Akinetic ?Dyskinetic ?? Aneurysmal ? 1-2 ? small ? 3-5 ? moderate ? 6-14 ?large ? 15-16 ? diffuse Electronically signed by: Lexx Wynne MD ?11/09/2023, 7: 53 PM Procedure Note Lexx Wynne MD - 11/09/2023 Version: 1 Name: ERVIN HELMS Study Date: 11/09/2023,1: 05 PM BP: 104 / 77 mmHg : 1965 (MM/DD/YYYY) Height: 71 cm Age: 57 Years Weight: 111.584 kg Gender: Male BSA: 1.17 m?? Ordering Physician: SANDY TYLER Referring Physician: SANDY TYLER Performed By: Linda Arnold RDCS Exam Location: [facility]. Conclusions Normal left ventricular size with severely reduced LV systolic function.LV ejection fraction 28%. RCA territory wall motion abnormality. Normal right ventricular size and function. No significant valvular abnormalities. No prior echoes available for comparison. Procedure Complete-[id number]. Image enhancement Optison was used for left ventricular opacification. Left Ventricle Left ventricle is of normal size. Wall thickness is normal. Leftventricular systolic function is severely reduced. The left ventricular ejectionfraction is 28% by Spangler's biplane. There are segmental wall motion abnormalities. Right Ventricle The right ventricle is of normal size. Right ventricular function isprobably normal. Aortic Valve The aortic valve is probably trileaflet. The aortic valve is mildlythickened. Mitral Valve The mitral valve is structurally normal. There is no mitral stenosis.There is trace mitral regurgitation. Tricuspid Valve The tricuspid valve is structurally normal. There is mild tricuspidregurgitation. Pulmonic Valve There is no valvular pulmonic stenosis. Great Arteries The aortic root is of normal size. No abnormalities are identified.Ascending aorta is normal in size. No abnormalities of the pulmonary artery areidentified. Venous Inferior vena cava is normal in size. Inferior vena cava collapse greaterthan 50% with respiration. Pericardium/Pleural The pericardium appears normal. Hemodynamics The peak right ventricular systolic pressure is 24.1 mmHg . The estimatedright atrial pressure is 3mmHg. Unable to assess diastolic function. Ejection Fraction 2D Measurements Volume s IVSd: 0.82 cm EF(MOD-bp): 27.9 % LVIDd: 4.3 cm LVIDs: 4.2 cm LAV(MOD-bp) Indexed: 25.7 ml/m?? LVPWd: 0.72 cm RA A4Cs_phl: 9.2 cm?? LV mass(C)d: 99.4grams EDV(MOD-sp4): 111.3 ml Ao root diam: 3.3 cm ESV(MOD-sp4): 74.3 ml asc Aorta Diam: 3.3cm EDV(MOD-sp2): 119.0 ml ESV(MOD-sp2): 89.0 ml EDV (MOD-sp4) index: 95.0 TAPSE_phl: 1.57 cm EDV (MOD-sp4) index: 95.0 ESV (MOD-sp4) index: 63.4 ESV (MOD-sp2) index: 76.0 Doppler 3D/Strain/ TomTec TR max julia: 229.7 cm/sec RVSP(TR): 24.1 mmHg I WMSI = 2.06 % Normal = 31% X - 1 - 2 - 3 - 4 - 5 - Segments Size Cannot Interpret Normal Hypokinetic AkineticDyskinetic Aneurysmal 1-2 small 3-5 moderate 6-14 large 15-16 diffuse Electronically signed by: Lexx Wynne MD 11/09/2023, 7: 53 PM Sandy Tyler MD ECHO ORDERABLES * (ABNORMAL) POCT Glucose (11/09/2023 12:05 PM EST) Glucose, POC 368(H) 65 - 199 mg/dL [facility] Comment: Supplemental ranges: <140 mg/dL before meals <180 mg/dL all other times of the day Blood 11/09/2023 12:0 5 PM EST 11/09/2023 12:05 PM EST Lexx Wynne MD POINT OF CARE TEST O RDERABLES [facility] [place] [place] [address] * (ABNORMAL) Hepatic Function Panel (11/09/2023 11:06 AM EST) Protein, Total 7.0 6.1 - 8.0 g/dL [facility] Albumin 4.2 3.2 - 5.2 g/dL [facility] Aspartate Aminotransferase 291(H) 0 - 39 unit/L [facility] Alanine Aminotransferase 71(H) 0 - 55 unit/L [facility] Alkaline Phosphatase 100 40 - 130 unit/L [facility] Bilirubin, Total 0.5 0.2 - 1.3 mg/dL [facility] Bilirubin, Direct 0.2 0.0 - 0.3 mg/dL [facility] Blood 11/09/2023 11:0 6 AM EST 11/09/2023 11:19 AM EST Narrative Resulting Agency Comment Spec In Lab Lexx Wynne MD CHEMISTRY ORDERABLES Performing Organization Address City/[facility] Co de Phone Number [facility] [place] [address] * (ABNORMAL) Iron and TIBC (11/09/2023 11:06 AM EST) Iron 41(L) 45 - 160 mcg/dL [facility] TIBC 320 250 - 450 mcg/dL [facility] Iron Saturation 13(L) 20 - 50 % [facility] Blood 11/09/2023 11:0 6 AM EST 11/09/2023 11:19 AM EST Narrative Resulting Agency Comment Spec In Lab Lexx Wynne MD CHEMISTRY ORDERABLES Performing Organization Address [facility] Co de Phone Number [facility] [place] [address] * (ABNORMAL) Ferritin (11/09/2023 11:06 AM EST) Ferritin 26(L) 31 - 409 ng/mL [facility] Comment: Please note that as of 10/01/2023, the reference intervals for Ferritin have been updated. Blood 11/09/2023 11:0 6 AM EST 11/09/2023 11:19 AM EST Narrative Resulting Agency Comment Spec In Lab Lexx Wynne MD CHEMISTRY ORDERABLES Performing Organization Address [facility] Co de Phone Number [facility] [place] [address] * (ABNORMAL) Troponin (11/09/2023 11:06 AM EST) Troponin-T, High Sensitivity 8,713(H) <=22 ng/L [facility] Comment: This patient's troponin T concentration was determined using the Shira 5th Generation troponin T assay. The 99th percentile for Troponin T for this test is 14 ng/L for females, and 22 ng/L for males. According to the fourth universal definition of myocardial infarction, the term acute myocardial infarction should be used when there is acute myocardial injury with clinical evidence of acute myocardial ischemia and with detection of a rise and/or fall of cardiac troponin values with at least one value above the 99th percentile and at least one of the following: - Symptoms of myocardial ischemia; - New ischemic ECG changes; - Development of pathological Q waves; - Imaging evidence of new loss of viable myocardium or new regional wall motion abnormality in a pattern consistent with an ischemic etiology; - Identification of a coronary thrombus by angiography or autopsy (not for type 2 or 3 MIs) Serial measurement of troponin and the change in troponin concentration over time (delta) is crucial for the diagnosis of acute myocardial infarction. Guidance on the interpretation of the new 5th Generation Troponin T values and the delta troponin value can be found in the [facility] Test Catalog Troponin - [facility] Test Catalog Reference: Fourth On[place] Definition of Myocardial Infarction. Journal of the [employer] 2018;72:0892-0371 Blood 11/09/2023 11:0 6 AM EST 11/09/2023 11:19 AM EST Narrative Resulting Agency Comment Spec In Lab Lexx Wynne MD CHEMISTRY ORDERABLES Performing Organization Address City/[facility] Co de Phone Number [facility] [place] [address] * POCT Glucose (11/09/2023 7:37 AM EST) Glucose, POC 103 65 - 199 mg/dL [facility] Comment: Supplemental ranges: <140 mg/dL before meals <180 mg/dL all other times of the day Blood 11/09/2023 7:37 AM EST 11/09/2023 7:37 AM EST Lexx Wynne MD POINT OF CARE TEST O RDERABLES Performing Organization Address [facility] Co de Phone Number [facility] [place] [address] * Scan, Peripheral Blood (11/09/2023 3:31 AM EST) Plat estimate Increased [facility] RBC Morphology Abnormal [facility] Microcyte 6-10 /HPF [facility] Hypochromia Slight [facility] Ovalocytes 1-5 /HPF [facility] [place] Cells 1-5 /HPF [facility] Blood 11/09/2023 3:31 AM EST 11/09/2023 3:54 AM EST Narrative Resulting Agency Comment Spec In Lab Lucy Herring MD HEMATOLOGY ORDERABLE S [facility] [place] [address] * (ABNORMAL) Differential, Automated (11/09/2023 3:31 AM EST) Neutrophil % 75.2 % [facility] Neutrophil Absolute 10.07(H) 1.70 - 6.10 x10(3)/mc L [facility] Lymph % 10.8 % [facility] Lymphocytes Abs 1.4 0.9 - 3.2 x10(3)/mc L [facility] Monocyte % 13.2 % [facility] Monocyte Abs 1.8(H) 0.3 - 0.9 x10(3)/mc L [facility] Eos % 0.0 % [facility] Eosinophils Abs 0.0 0.0 - 0.4 x10(3)/mc L [facility] Basophil % 0.4 % [facility] Baso Absolute 0.1 0.0 - 0.1 x10(3)/mc L [facility] Immature Gran % 0.40 % [facility] Comment: Immature granulocytes(IG's)percentage and absolute count will include metamyelocytes, myelocytes, and promyelocytes. Blood smears from CBCs yielding IG's will be scanned manually for concordance. If this scan disagrees with the automated IG or if promyelocytes are noted, a manual differential will be performed. Immature Gran Absolute 0.05(H) 0.00 - 0.04 x10(3)/mc L [facility] Blood 11/09/2023 3:31 AM EST 11/09/2023 3:54 AM EST Narrative Resulting Agency Comment Spec In Lab Lucy Herring MD HEMATOLOGY ORDERABLE S [facility] [place] [place] [address] * (ABNORMAL) Hemogram (11/09/2023 3:31 AM EST) White Blood Cell 13.4(H) 4.0 - 9.5 x10(3)/mc L [facility] Red Blood Cell 4.72 4.58 - 5.54 x10(6)/mc L [facility] Hemoglobin 11.5(L) 13.7 - 16.5 g/dL [facility] Hematocrit 35.9(L) 40.5 - 48.5 % [facility] Mean Cell Volume 76.1(L) 82.9 - 93.1 fL [facility] Mean Cell Hemoglobin 24.4(L) 27.5 - 32.1 pg [facility] Mean Cell Hemoglobin Concentration 32.0 32.0 - 35.7 g/dL [facility] Platelet 359(H) 145 - 357 x10(3)/mc L [facility] RDW Standard Deviation 41.8 36.0 - 45.0 fL [facility] RDW coefficient of variation 15.3(H) 11.4 - 13.8 % [facility] Mean Platelet Volume 8.9 7.6 - 12.9 fL [facility] NRBC% auto 0.0 % [facility] NRBC Absolute 0.000 0.000 - 0.000 x10(3)/mc L [facility] Blood 11/09/2023 3:31 AM EST 11/09/2023 3:54 AM EST Narrative Resulting Agency Comment Spec In Lab Lucy Herring MD HEMATOLOGY ORDERABLE S [facility] [place] [address] * Magnesium (11/09/2023 3:31 AM EST) Magnesium 0.83 0.69 - 1.07 mmol/L [facility] Blood 11/09/2023 3:31 AM EST 11/09/2023 3:53 AM EST Narrative Resulting Agency Comment Spec In Lab Lexx Wynne MD CHEMISTRY ORDERABLES [facility] [place] [address] * (ABNORMAL) Basic Metabolic Panel (non-fasting) (11/09/2023 3:31 AM EST) Glucose 120 65 - 199 mg/dL [facility] Comment:Diabetes: >=200 mg/d L plus symptoms Blood Urea Nitrogen 22(H) 10 - 20 mg/dL [facility] Creatinine 1.10 0.80 - 1.50 mg/dL [facility] Sodium 134(L) 135 - 145 mmol/L [facility] Potassium 4.3 3.5 - 5.0 mmol/L [facility] Comment: Please note: ??Patients with WBC >100,000 may have falsely elevated Potassium levels. ??For accurate Potassium quantification in these patients send serum separator tube (gold top) for subsequent determinations. ??Contact the Clinical Chemistry Laboratory if there are any questions. Chloride 100 98 - 107 mmol/L [facility] Carbon Dioxide 22 22 - 31 mmol/L [facility] Anion Gap 12 5 - 15 mmol/L [facility] Calcium 9.0 8.5 - 10.5 mg/dL [facility] Est Glomerular Filtration Rate 79 >=60 mL/min/1. 73 m?? [facility] Comment: This patient's estimated GFR was [...] and symptoms in addition to eGFR. Blood 11/09/2023 3:31 AM EST 11/09/2023 3:53 AM EST Narrative Resulting Agency Comment Spec In Lab Lexx Wynne MD CHEMISTRY ORDERABLES [facility] [place] [address] * Lipid Panel (Reflex Direct LDL) (11/09/2023 3:31 AM EST) Cholesterol, Total 133 mg/dL [facility] Comment: Lower Risk: <200 mg/dL Average Risk: 200-239 mg/dL Higher Risk: >vt=190 mg/dL Triglyceride 35 mg/dL [facility] Comment: Average Risk/Lower Risk: <150 mg/dL Borderline High Risk: 150-199 mg/dL High Risk: 200-499 mg/dL Very High Risk: >cv=856 mg/dL HDL Cholesterol 52 mg/dL [facility] Comment: Males: ?? Higher Risk: <40 mg/dL Females: ?? Higher Risk: <50 mg/dL LDL Cholesterol 74 mg/dL [facility] Comment: Lowest Risk: <100 mg/dL Lower Risk: 100-129 mg/dL Borderline High Risk: 130-159 mg/dL High Risk: 160-189 mg/dL Very High Risk: >yb=497 mg/dL Cholesterol/HDL Ratio 2.6 ratio [facility] Lipid Interpretation See Note [facility] Comment: Lipid management should be guided by a patient? s ASCVD risk, goals and preferences. ACC/AHA Guidelines recommend high intensity statin if clinical ASCVD or LDL greater than or equal to 190 mg/dL. [email or web address] Adults aged 40-75 with LDL 70-189 mg/dL should have their 10 year ASCVD risk estimated with the ACC/AHA ASCVD risk production cost estimator http://tools.acc.org/WPNBW-Ylwm-Zohojfrnt/ Statin should be discussed if risk greater [...] Narrative Resulting Agency Comment Spec In Lab Sandy Tyler MD CHEMISTRY ORDERABLES Performing Organization Address [facility] de Phone Number [facility] [place] [address] * (ABNORMAL) Hemoglobin A1c (11/09/2023 3:31 AM EST) Hemoglobin A1c 7.3(H) 4.3 - 5.6 % [facility] Comment: Reference Range: 4.3 - 5.6% [...] Mellitus, Diabetes Care 2013; 36: Suppl. 1, S67-74 Estimated Average Glucose 163 mg/dL [facility] Blood 11/09/2023 3:31 AM EST 11/09/2023 3:54 AM EST Narrative Resulting Agency Comment Spec In Lab Sandy Tyler MD CHEMISTRY ORDERABLES Performing Organization Address [facility] de Phone Number [facility] [place] [address] * TSH (11/09/2023 3:31 AM EST) Thyroid Stimulating Hormone 1.84 0.27 - 4.20 mcIU/mL [facility] Comment: Reference Interval (mcIU/mL): Females: ??First Trimester: 0.23-3.88 ??Second Trimester: 0.22-3.90 ??Third Trimester: 0.44-4.66 Blood 11/09/2023 3:31 AM EST 11/09/2023 3:53 AM EST Narrative Resulting Agency Comment Spec In Lab Sandy Tyler MD CHEMISTRY ORDERABLES Performing Organization Address City/[facility] Co de Phone Number [facility] [place] [address] * EKG 12 Lead (11/08/2023 11:23 PM EST) Ventricular rate 108 BPM MUSE SYSTEM Atrial Rate 108 BPM MUSE SYSTEM P-R Interval 192 ms MUSE SYSTEM QRS Duration 90 ms MUSE SYSTEM Q-T Interval 318 ms MUSE SYSTEM QTC Calculated (Bezet) 426 ms MUSE SYSTEM Calculated P Ladson 45 degrees MUSE SYSTEM Calculated R Ladson 25 degrees MUSE SYSTEM Calculated T Ladson 31 degrees MUSE SYSTEM INTERPRETATION Sinus tachycardia Inferolateral infarction , new ACUTE CO / STEMI Abnormal ECG When compared with ECG of 08-NOV-2023 18:54, No significant change was found Confirmed by MD Fatoumata, Kishore Okeefe ([id number]) on 11/09/2023 10:30:18 AM MUSE SYSTEM 11/08/2023 11:2 3 PM EST 11/09/2023 10:30 AM EST Lexx Wynne MD ECG ORDERABLES Performing Organization Address [facility] Co de Phone Number MUSE SYSTEM * POCT Glucose (11/08/2023 10:14 PM EST) Glucose, POC 173 65 - 199 mg/dL [facility] Comment: Supplemental ranges: <140 mg/dL before meals <180 mg/dL all other times of the day Blood 11/08/2023 10:1 4 PM EST 11/08/2023 10:14 PM EST Lexx Wynne MD POINT OF CARE TEST O RDERABLES Performing Organization Address [facility] Co de Phone Number [facility] [place] [address] * CARDIAC CATHETERIZATION (11/08/2023 7:00 PM EST) Anatomical Region Laterality Modality Other Narrative 11/10/2023 7:32 AM EST ?[facility] ? Cardiac Catheterization/Intervention Report ? Patient Name: CARMEN, ERVIN S. ? Procedure Date: 11/08/2023 ? A #: [id number] ? Primary Physician: Kristine, Sandy T ? Case #: [id number] ? File Name: [id number] ? Catheterization Order Number: [id number] ? [facility] ? Final Report [place], [place] ? Patient Name: ? ERVIN S. CARMEN ?ID#: ?[id number] ? : ?1965 ? Procedure Date: ? November 08, 2023 ? Case #: ? [id number] ? Room: ? 6 ? Case Physician: ? Sandy Tyler M.D. ?Start: ?17:58 ? Admission: ??11/08/2023 ? Referring Physician: ??Kyle Yi M.D. ?Discharge: ??11/11/2023 ? Procedures: ?* Coronary Angiography ?* Left Heart Catheterization ?* Coronary Ultrasound ?* Coronary Angioplasty ?* Coronary Stent Insertion ?* Coronary Embolic Protection/Thrombectomy ? Pre Case Status: ?These procedures were performed on an emergent basis. ? History ?ERVIN HELMS is a 57 year old man. The patient's smoking status is ?Current with Current - Every Day frequency, using cigars. The patient has ?diabetes managed by oral medication and insulin. He has sequelae from ?diabetes. The patient is also status post an acute ST elevation ?myocardial infarction. Prior to the initiation of this procedure, the ?patient was designated as ASA Class IV. The CSHA clinical frailty scale ?is 5: Mildly Frail. ? Diagnostic Tests: ?Electrocardiography: ? EKG was assessed by ECG. EKG was Abnormal. EKG showed T-wave ? inversions, ST Deviation >= 0.5 mm and other abnormality. ?Medications Prior to Procedure: ? Aspirin and Thrombolytic (any). ? Indications for Diagnostic Cath: ?The priority of the diagnostic procedure was Emergent. The indication for ?the analytical laboratory technician visit is ACS less than or equal to 24 hrs. Chest pain ?symptom assessment was: Typical Angina. ? Technique: ?A 6 SLFr sheath was inserted in the right radial artery utilizing the ?Seldinger technique. The left coronary artery was injected utilizing a ?5Fr LIT RADIAL catheter. A 6Fr JR 4 catheter was used to inject the ?right coronary artery. Left ventricular pressure was performed utilizing ?a 5Fr LIT RADIAL catheter. Aortic Root was performed with a 5Fr LIT ?RADIAL catheter. Coronary angioplasty, coronary stent insertion and ?coronary embolic protection/thrombectomy were performed and the equipment ?utilized will be described in the intervention summary section. 6,500 ?units of heparin were administered. A total of 200cc of Omnipaque were ?opened, 120cc of Omnipaque were administered and 80cc of Omnipaque were ?wasted. Radiation: Fluoro time was 14.0 minutes, dose area product was ?54.90 Gy/cm2 and air kerma was 778 mGY. See the case log for additional ?details. ?The patient received the following medications prior to and during the ?procedure: ? Unfractionated Heparin and Clopidogrel. ? Hemodynamics: ?Left Heart Pressures ? Resting: ? Syst Diast ? EDP ?a ?v ? m ?Ao 114 ?? 70 ?91 ?LV 114 ? 15 ? Coronary Angiography: ?Dominance: Right ?Left Main ? There was mild diffuse (<=25% stenosis) disease of the entire vessel ? segment of the left main artery. ?Left Anterior Descending ? There was mild diffuse (<=25% stenosis) disease of the entire vessel ? segment of the left anterior descending artery (LAD). ??The mid ? segment of the LAD had a single discrete 50% stenosis. ??Distal flow ? was normal. ?Left Circumflex ? There was mild diffuse (<=25% stenosis) disease of the entire vessel ? segment of the left circumflex artery (LCX). ??The proximal segment ? of the LCX had a single discrete total occlusion. ??There was ? evidence of thrombus in this lesion. Distal flow was decreased. ?Right Coronary Artery ? There was a single discrete total occlusion of the mid segment of ? the right coronary artery (RCA). ??The RCA was large. ??There was no ? antegrade distal flow (CRISTAL Grade 0). ??Distal flow was via ? collaterals from the LAD. ??The distal vessel was large. ? Intravascular Imaging/Physiology: ?Intravascular Ultrasound was performed in the proximal LCX using a 6 Fr ?EBU 3.5 guiding catheter and a 3.5 Fr [place] 20 Mhz using ?Manual pullback. ??Imaging was successful. ??Image quality was good. ??The ?proximal LCX showed moderate diffuse atherosclerotic plaque with ?scattered single quadrant calcification. ??Measurements were performed ?after pre-dilation. ?Post Intervention: The stent was well expanded and apposed. ??The post ?intervention MLD was 3.7 mm. ??The post intervention CSA was 9.0 sq mm. ? Indication for Intervention: ?Coronary intervention was indicated for primary therapy for an acute ?myocardial infarction. The priority for the procedure was Emergent. The ?NCDR indication for the procedure was STEMI-Rescue (after Unsuccessful ?lytics). STEMI onset was 11/07/2022 at 8:30 AM, estimated. Thrombolytics ?were administered on 11/08/2023 at 3:44 PM. ? Intervention Summary: ?Left Circumflex Artery ? Proximal 100% ? Thrombectomy and stent insertion were performed on the total ? occlusion in the proximal segment of the LCX. This was a de ? sabrina lesion. According to the ACC/AHA classification system, ? this lesion was a type C high risk lesion. Primary prevention ? of restenosis was the indication for stent insertion. This was ? the culprit lesion. A guidewire was placed across this lesion. ? Vessel flow pre intervention was CRISTAL 0. Lesion length was ? 20mm. ? Thrombectomy was accomplished through a 6 Fr EBU 3.5 guide ? utilizing a Pronto V4. ? Stent insertion was accomplished through a 6 Fr. EBU 3.5 ? guide. ??The lesion was predilated with a 2.50mm EUPHORA 15 MM ? balloon with a maximum inflation pressure of 18 atmospheres. ? A premounted 3.50 x 26 mm [place] (MARCOS) was deployed ? with a maximum inflation pressure of 18 atmospheres. ? The final outcome was defined as successful. There was no ? residual stenosis following this intervention. The final CRISTAL ? flow was 3. ?Right Coronary Artery ? Mid 100% ? Angioplasty was attempted on the total occlusion in the mid ? segment of the RCA. This was a chronic total occlusion lesion. ? This lesion was designated a type C moderate risk lesion based ? on ACC/AHA classification system. Vessel flow pre intervention ? was CRISTAL 0. Lesion length was 15mm. ? Angioplasty was attempted through a 6 Fr JR 4.0 guide. ? The final outcome was defined as unsuccessful due to an ? inability to cross lesion with a guide wire. The vessel was ? totally occluded following this intervention. The final CRISTAL ? flow was 0. ? Vascular Access: ?Vascular Access Management: ? Mechanical Compression of the right radial artery access site was ? performed. ? Dual Antiplatelet (DAPT) Recommendations: ?Drug eluting stent (MARCOS) inserted. ?P2Y12 Loading dose administered prior to arrival in the analytical laboratory technician. ?Recommended anti-platelet/anti-thrombotic regimen: ?Continue aspirin 81 mg daily for indefinitely. ?Continue clopidogrel 75 mg daily for 12 months then stop. ?These recommendations are made at the time of the intervention. Patient ?and provider preferences or a changing clinical situation may require ?modification of this regimen. Consult [facility] for ?questions. ?The 1 year bleeding risk as calculated by the PRECISE DAPT score is ?Moderate risk. ? Conclusions: ?* Three vessel coronary artery disease (LAD, LCX and RCA) ?* Successful thrombectomy and stent insertion of the proximal LCX lesion ?* Unsuccessful angioplasty of the mid RCA lesion ?* See Dual Antiplatelet (DAPT) Recommendations above ? Complications/Events: ?The patient had no complications during these procedures. ? Post Procedure Fluid Recommendations: ?IV fluid at 201 mL/hr for 4 hours for a total of 804 mL. These ?recommendations are made at the time of the procedure. Patient and ?provider preferences or a changing clinical situation may require ?modification of this regimen. ? Recommendations: ?Based upon the results of this procedure, it was recommended that medical ?therapy be considered. ? Comments: ?Inferior STEMI, s/p lysis. ??Initial assumption based on the EKG was that ?the RCA was the culprit. ??However, the lesion did not behave like an ?acute lesion, and could not be crossed with a work horse Run Through ?wire, a Lease Picker 50 or Lease Picker 150. ??Attention was turned to the left system, ?which showed an acutely occluded mid LCx with thrombus, as well as robust ?collaterals from the left system feeding the RCA. 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 ??Intervention to the LCx with ?thrombectomy (copious thrombus) and stenting was successful with a good ?result. ??Recommend assessing for viability in the RCA territory, consider ?CARBON PAPER MACHINE OPERATOR intervention if medically appropriate post discharge. ?The attending physician was present for the entire procedure. ?Dr. Sandy Tyler M.D. was present during the moderate sedation ?intraservice time as documented by the sedation nurse. ??Case time = 00:44. ?Dr. Sandy Tyler M.D. performed the coronary angiography, left heart ?catheterization, IVUS # coronary, stent insertion-coronary, embolic ?protection/thrombectomy-coronary and angioplasty-coronary. ? Sandy Tyler MSiddharthD. ? Electronically Signed by: Sandy Tyler MSiddharthD. ? Report Finalized: 11/09/2023 ??10:00 ? Report Last Ammended: 12/03/2023 ??14:53 ? Procedure Note Sandy Tyler MD - 12/04/2023 [facility] Cardiac Catheterization/Intervention Report Patient Name: ERVIN HELMS Procedure Date: 11/08/2023 A #: [id number] Primary Physician: Sandy Tyler Case #: [id number] File Name: [id number] Catheterization Order Number: [id number] [facility] FinalReport [place], [place] Patient Name: ERVIN HELMS ID#:[id number] :1965 Procedure Date: November 08, 2023 Case #: [id number] Room: 6 Case Physician: Sandy Tyler M.D. Start: 17:58 Admission:11/08/2023 Referring Physician: Kyle Yi M.D. Discharge:11/11/2023 Procedures: * Coronary Angiography * Left Heart Catheterization * Coronary Ultrasound * Coronary Angioplasty * Coronary Stent Insertion * Coronary Embolic Protection/Thrombectomy Pre Case Status: These procedures were performed on an emergent basis. History ERVIN HELMS is a 57 year old man. The patient's smoking statusis Current with Current - Every Day frequency, using cigars. Thepatient has diabetes managed by oral medication and insulin. He has sequelaefrom diabetes. The patient is also status post an acute ST elevation myocardial infarction. Prior to the initiation of this procedure,the patient was designated as ASA Class IV. The [facility] clinical frailtyscale is 5: Mildly Frail. Diagnostic Tests: Electrocardiography: EKG was assessed by ECG. EKG was Abnormal. EKG showed T-wave inversions, ST Deviation >= 0.5 mm and other abnormality. Medications Prior to Procedure: Aspirin and Thrombolytic (any). Indications for Diagnostic Cath: The priority of the diagnostic procedure was Emergent. Theindication for the analytical laboratory technician visit is ACS less than or equal to 24 hrs. Chest pain symptom assessment was: Typical Angina. Technique: A 6 SLFr sheath was inserted in the right radial artery utilizingthe Seldinger technique. The left coronary artery was injected utilizinga 5Fr LIT RADIAL catheter. A 6Fr JR 4 catheter was used to injectthe right coronary artery. Left ventricular pressure was performedutilizing a 5Fr LIT RADIAL catheter. Aortic Root was performed with a 5FrJACKY RADIAL catheter. Coronary angioplasty, coronary stent insertion and coronary embolic protection/thrombectomy were performed and theequipment utilized will be described in the intervention summary section.6,500 units of heparin were administered. A total of 200cc of Omnipaquewere opened, 120cc of Omnipaque were administered and 80cc of Omnipaquewere wasted. Radiation: Fluoro time was 14.0 minutes, dose area productwas 54.90 Gy/cm2 and air kerma was 778 mGY. See the case log foradditional details. The patient received the following medications prior to and duringthe procedure: Unfractionated Heparin and Clopidogrel. Hemodynamics: Left Heart Pressures Resting: Syst Diast EDP a v m Ao 114 70 91 LV 114 15 Coronary Angiography: Dominance: Right Left Main There was mild diffuse (<=25% stenosis) disease of the entirevessel segment of the left main artery. Left Anterior Descending There was mild diffuse (<=25% stenosis) disease of the entirevessel segment of the left anterior descending artery (LAD). The mid segment of the LAD had a single discrete 50% stenosis. Distalflow was normal. Left Circumflex There was mild diffuse (<=25% stenosis) disease of the entirevessel segment of the left circumflex artery (LCX). The proximalsegment of the LCX had a single discrete total occlusion. There was evidence of thrombus in this lesion. Distal flow was decreased. Right Coronary Artery There was a single discrete total occlusion of the mid segmentof the right coronary artery (RCA). The RCA was large. There wasno antegrade distal flow (CRISTAL Grade 0). Distal flow was via collaterals from the LAD. The distal vessel was large. Intravascular Imaging/Physiology: Intravascular Ultrasound was performed in the proximal LCX using a 6Fr EBU 3.5 guiding catheter and a 3.5 Fr [place] 20 Mhzusing Manual pullback. Imaging was successful. Image quality was good.The proximal LCX showed moderate diffuse atherosclerotic plaque with scattered single quadrant calcification. Measurements wereperformed after pre-dilation. Post Intervention: The stent was well expanded and apposed. Thepost intervention MLD was 3.7 mm. The post intervention CSA was 9.0 sqmm. Indication for Intervention: Coronary intervention was indicated for primary therapy for an acute myocardial infarction. The priority for the procedure was Emergent.The [facility] indication for the procedure was STEMI-Rescue (afterUnsuccessful lytics). STEMI onset was 11/07/2022 at 8:30 AM, estimated.Thrombolytics were administered on 11/08/2023 at 3:44 PM. Intervention Summary: Left Circumflex Artery Proximal 100% Thrombectomy and stent insertion were performed on thetotal occlusion in the proximal segment of the LCX. This was angelika sabrina lesion. According to the ACC/AHA classificationsystem, this lesion was a type C high risk lesion. Primaryprevention of restenosis was the indication for stent insertion.This was the culprit lesion. A guidewire was placed across thislesion. Vessel flow pre intervention was CRISTAL 0. Lesion lengthwas 20mm. Thrombectomy was accomplished through a 6 Fr EBU 3.5guide utilizing a Pronto V4. Stent insertion was accomplished through a 6 Fr. EBU 3.5 guide. The lesion was predilated with a 2.50mm [id number] MM balloon with a maximum inflation pressure of 18atmospheres. A premounted 3.50 x 26 mm [place] (MARCOS) wasdeployed with a maximum inflation pressure of 18 atmospheres. The final outcome was defined as successful. There was no residual stenosis following this intervention. The finalTIMI flow was 3. Right Coronary Artery Mid 100% Angioplasty was attempted on the total occlusion in themid segment of the RCA. This was a chronic total occlusionlesion. This lesion was designated a type C moderate risk lesionbased on ACC/AHA classification system. Vessel flow preintervention was CRISTAL 0. Lesion length was 15mm. Angioplasty was attempted through a 6 Fr JR 4.0 guide. The final outcome was defined as unsuccessful due to an inability to cross lesion with a guide wire. The vesselwas totally occluded following this intervention. The finalTIMI flow was 0. Vascular Access: Vascular Access Management: Mechanical Compression of the right radial artery access sitewas performed. Dual Antiplatelet (DAPT) Recommendations: Drug eluting stent (MARCOS) inserted. P2Y12 Loading dose administered prior to arrival in the analytical laboratory technician. Recommended anti-platelet/anti-thrombotic regimen: Continue aspirin 81 mg daily for indefinitely. Continue clopidogrel 75 mg daily for 12 months then stop. These recommendations are made at the time of the intervention.Patient and provider preferences or a changing clinical situation mayrequire modification of this regimen. Consult [facility] Interventional Cardiologyfor questions. The 1 year bleeding risk as calculated by the PRECISE DAPT score is Moderate risk. Conclusions: * Three vessel coronary artery disease (LAD, LCX and RCA) * Successful thrombectomy and stent insertion of the proximal LCXlesion * Unsuccessful angioplasty of the mid RCA lesion * See Dual Antiplatelet (DAPT) Recommendations above Complications/Events: The patient had no complications during these procedures. Post Procedure Fluid Recommendations: IV fluid at 201 mL/hr for 4 hours for a total of 804 mL. These recommendations are made at the time of the procedure. Patient and provider preferences or a changing clinical situation may require modification of this regimen. Recommendations: Based upon the results of this procedure, it was recommended thatmedical therapy be considered. Comments: Inferior STEMI, s/p lysis. Initial assumption based on the EKG wasthat the RCA was the culprit. However, the lesion did not behave like an acute lesion, and could not be crossed with a work horse Run Through wire, a Lease Picker 50 or Lease Picker 150. Attention was turned to the leftsystem, which showed an acutely occluded mid LCx with thrombus, as well asrobust collaterals from the left system feeding the RCA. Clearly the LCxwas the culprit and the RCA was a CARBON PAPER MACHINE OPERATOR. Intervention to the LCx with thrombectomy (copious thrombus) and stenting was successful with agood result. Recommend assessing for viability in the RCA territory,consider CARBON PAPER MACHINE OPERATOR intervention if medically appropriate post discharge. The attending physician was present for the entire procedure. Dr. Sandy Tyler M.D. was present during the moderate sedation intraservice time as documented by the sedation nurse. Case time =00:44. Dr. Sandy Tyler M.D. performed the coronary angiography, leftheart catheterization, IVUS # coronary, stent insertion-coronary, embolic protection/thrombectomy-coronary and angioplasty-coronary. Sandy Tyler M.D. Electronically Signed by: Sandy Tyler M.D. Report Finalized: 11/09/2023 10:00 Report Last Ammended: 12/03/2023 14:53 Sandy Tyler MD CARDIAC CATH ORDERAB LES * EKG 12 Lead (11/08/2023 6:54 PM EST) Ventricular rate 99 BPM MUSE SYSTEM Atrial Rate 99 BPM MUSE SYSTEM P-R Interval 210 ms MUSE SYSTEM QRS Duration 92 ms MUSE SYSTEM Q-T Interval 320 ms MUSE SYSTEM QTC Calculated (Bezet) 410 ms MUSE SYSTEM Calculated P Ladson 33 degrees MUSE SYSTEM Calculated R Ladson 32 degrees MUSE SYSTEM Calculated T Ladson 29 degrees MUSE SYSTEM INTERPRETATION Sinus rhythm with 1st degree A-V block Possible Left atrial enlargement Inferior-poste rior infarct , possibly acute ACUTE CO / STEMI Abnormal ECG No previous ECGs available Confirmed by MD Fatoumata, Kishore Okeefe ([id number]) on 11/09/2023 10:29:37 AM MUSE SYSTEM 11/08/2023 6:54 PM EST 11/09/2023 10:29 AM EST Lexx Wynne MD ECG ORDERABLES Performing Organization Address City/State/[facility] Co de Phone Number MUSE SYSTEM * POCT Glucose (11/08/2023 6:03 PM EST) Glucose, POC 120 65 - 199 mg/dL [facility] Comment: Supplemental ranges: <140 mg/dL before meals <180 mg/dL all other times of the day Blood 11/08/2023 6:03 PM EST 11/08/2023 6:03 PM EST Sandy Tyler MD POINT OF CARE TEST [place] [address] * Scan, Peripheral Blood (11/08/2023 6:00 PM EST) Pathologist [facility] Plat estimate Increased [facility] RBC Morphology Abnormal [facility] Macrocyte 1-5 /HPF [facility] Microcyte 1-5 /HPF [facility] Ovalocytes 1-5 /HPF [facility] Tear Cell 1-5 /HPF [facility] [place] Cells 1-5 /HPF [facility] Blood 11/08/2023 6:00 PM EST 11/08/2023 7:18 PM EST Narrative Resulting Agency Comment Spec In Lab Sandy Tyler MD HEMATOLOGY ORDERABLE S Performing Organization Address [facility] [facility] [place] [address] * (ABNORMAL) Differential, Automated (11/08/2023 6:00 PM EST) [facility] Neutrophil % 73.0 % [facility] Neutrophil Absolute 9.56(H) 1.70 - 6.10 x10(3)/mc L [facility] Lymph % 17.7 % [facility] Lymphocytes Abs 2.3 0.9 - 3.2 x10(3)/mc L [facility] Monocyte % 8.5 % [facility] Monocyte Abs 1.1(H) 0.3 - 0.9 x10(3)/mc L [facility] Eos % 0.1 % [facility] Eosinophils Abs 0.0 0.0 - 0.4 x10(3)/mc L [facility] Basophil % 0.3 % [facility] Baso Absolute 0.0 0.0 - 0.1 x10(3)/mc L [facility] Immature Gran % 0.40 % [facility] Comment: Immature granulocytes(IG's)percentage and absolute count will include metamyelocytes, myelocytes, and promyelocytes. Blood smears from CBCs yielding IG's will be scanned manually for concordance. If this scan disagrees with the automated IG or if promyelocytes are noted, a manual differential will be performed. Immature Gran Absolute 0.05(H) 0.00 - 0.04 x10(3)/mc L [facility] Blood 11/08/2023 6:00 PM EST 11/08/2023 7:18 PM EST Narrative Resulting Agency Comment Spec In Lab Sandy Tyler MD HEMATOLOGY ORDERABLE S Performing Organization Address City/[facility]/ZIP Co de Phone Number [facility] [place] [place] [address] * (ABNORMAL) Hemogram (11/08/2023 6:00 PM EST) White Blood Cell 13.1(H) 4.0 - 9.5 x10(3)/mc L [facility] Red Blood Cell 4.35(L) 4.58 - 5.54 x10(6)/mc [facility] Hemoglobin 10.7(L) 13.7 - 16.5 g/dL [facility] Hematocrit 32.6(L) 40.5 - 48.5 % [facility] Mean Cell Volume 74.9(L) 82.9 - 93.1 fL [facility] Mean Cell Hemoglobin 24.6(L) 27.5 - 32.1 pg [facility] Mean Cell Hemoglobin Concentration 32.8 32.0 - 35.7 g/dL [facility] Platelet 373(H) 145 - 357 x10(3)/mc L [facility] RDW Standard Deviation 41.7 36.0 - 45.0 fL [facility] RDW coefficient of variation 15.2(H) 11.4 - 13.8 % [facility] Mean Platelet Volume 9.1 7.6 - 12.9 fL [facility] NRBC% auto 0.0 % [facility] NRBC Absolute 0.000 0.000 - 0.000 x10(3)/mc L [facility] Blood 11/08/2023 6:00 PM EST 11/08/2023 7:18 PM EST Narrative Resulting Agency Comment Spec In Lab Sandy Tyler MD HEMATOLOGY ORDERABLE S Performing Organization Address City/[facility] Co de Phone Number [facility] [place] [address] * Basic Metabolic Panel (non-fasting) (11/08/2023 6:00 PM EST) Glucose 93 65 - 199 mg/dL [facility] Comment:Diabetes: >=200 mg/d L plus symptoms Blood Urea Nitrogen 20 10 - 20 mg/dL [facility] Creatinine 0.97 0.80 - 1.50 mg/dL [facility] Sodium 136 135 - 145 mmol/L [facility] Potassium 3.5 3.5 - 5.0 mmol/L [facility] Comment: Please note: ??Patients with WBC >100,000 may have falsely elevated Potassium levels. ??For accurate Potassium quantification in these patients send serum separator tube (gold top) for subsequent determinations. ??Contact the Clinical Chemistry Laboratory if there are any questions. Chloride 101 98 - 107 mmol/L [facility] Carbon Dioxide 22 22 - 31 mmol/L [facility] Anion Gap 13 5 - 15 mmol/L [facility] Calcium 8.7 8.5 - 10.5 mg/dL [facility] Est Glomerular Filtration Rate 92 >=60 mL/min/1. 73 m?? [facility] Comment: This patient's estimated GFR was [...] and symptoms in addition to eGFR. Blood 11/08/2023 6:00 PM EST 11/08/2023 7:18 PM EST Narrative Resulting Agency Comment Spec In Lab Sandy Tyler MD CHEMISTRY ORDERABLES Performing Organization Address [facility] Co de Phone Number [facility] [place] [address] documented in this encounter Visit Diagnoses Diagnosis ST elevation myocardial infarction (STEMI), unspecified artery ST elevation myocardial infarction involving left circumflex coronary artery Acute myocardial infarction of other specified sites, initial episode of care Coronary artery disease, unspecified vessel or lesion type, unspecified whether angina present, unspecified whether [place] or transplanted heart ST elevation myocardial infarction (STEMI), unspecified artery documented in this encounter Admitting Diagnoses Diagnosis STEMI (ST elevation myocardial infarction) Acute myocardial infarction, unspecified site, episode of care unspecified documented in this encounter Administered Medications Inactive Administered Medications - up to 3 most recent administrations Medication Order MAR Action Action Date Dose Rate Site ascorbic acid (Vitamin C) (Vitamin C) tablet 500 mg 500 mg, Oral, DAILY, First dose on 11/08/23 at 2015, Until Discontinued Given 11/11/2023 8:56 AM EST 500 mg Given 11/10/2023 8:23 AM EST 500 mg Given 11/09/2023 9:00 AM EST 500 mg aspirin chewable tablet 81 mg 81 mg, Oral, DAILY, First dose on 11/09/23 at 0900, Until Discontinued, Routine Given 11/11/2023 9:00 AM EST 81 mg Given 11/10/2023 8:25 AM EST 81 mg Given 11/09/2023 9:00 AM EST 81 mg atorvastatin (Lipitor) tablet 80 mg 80 mg, Oral, EVERY EVENING, First dose on 11/08/23 at 2030, Until Discontinued, Routine Given 11/10/2023 4:59 PM EST 80 mg Given 11/09/2023 4:47 PM EST 80 mg Given 11/08/2023 10:09 PM EST 80 mg benzonatate (Tessalon) capsule 100 mg 100 mg, Oral, 3 TIMES DAILY PRN, Starting on Fri11/08/23 at 1925, Until Fri11/11/23 at 1857, Cough, DO NOT CRUSH OR OPEN, Routine Given 11/11/2023 9:19 AM EST 100 mg clopidogreL (Plavix) tablet 75 mg 75 mg, Oral, DAILY, First dose on 11/09/23 at 0900, Until Discontinued, Routine Given 11/11/2023 8:56 AM EST 75 mg Given 11/10/2023 8:25 AM EST 75 mg Given 11/09/2023 9:00 AM EST 75 mg dextrose 10% infusion 250 mL, at 1,000 mL/hr, Intravenous, EVERY 15 MIN PRN, Starting on 11/08/23 at 1921, Until 11/11/23 at 1857, For BG 50-70 mg/dL: Oral treatment preferred: If able to drink, give 120 mL juice or regular (not diet) soda OR if NPO, give 15 gram glucose 40% oral gel massaged into buccal mucosa OR if unconscious or uncooperative, give 25 gram (250 mL) dextrose 10% IV over 15 minutes per protocol OR, if no IV access, 1 mg glucagon IM. For BG less than 50 mg/dL: Oral treatment preferred: If able to drink, give 240 mL juice or regular (not diet) soda OR if NPO, give 30 gram glucose 40% oral gel massaged in buccal mucosa OR if unconscious or uncooperative, give 25 gram (250 mL) dextrose 10% IV over 15 minutes per protocol OR, if no IV access, 1 mg glucagon IM. Recheck BG in 15 minutes. May repeat juice/soda, gel, dextrose or glucagon once per episode. Notify provider if hypoglycemia does not resolve after two treatments. Providers should consider the following: administering longer-acting treatments for the duration of active insulin or hypoglycemia agent for persistent hypoglycemia and re-evaluating active insulin orders before administering the next dose. empagliflozin (Jardiance) tablet 25 mg 25 mg, Oral, DAILY, First dose on 11/09/23 at 1030, Until Discontinued, This medication should not be given with reduced PO intake/fluid loss, severe illness, or in patients with ketonemia or ketouria., Routine, This medication should be held for 3 days prior to surgery. Is there a planned procedure within 3 days? No, Indication for empagliflozin: diabetes, Is this a continuation of therapy from home? Yes Given 11/11/2023 8:56 AM EST 25 mg Given 11/10/2023 8:25 AM EST 25 mg Given 11/09/2023 9:58 AM EST 25 mg enoxaparin (Lovenox) (40 mg/0.4 mL) subcutaneous injection 40 mg 40 mg, Subcutaneous, NIGHTLY, First dose (after last modification) on 11/09/23 at 2100, Until Discontinued, Routine Given 11/10/2023 8:12 PM EST 40 mg Given 11/09/2023 8:38 PM EST 40 mg glucagon (Glucagen) (1 mg/mL) injection solution 1 mg 1 mg, Intramuscular, EVERY 15 MIN PRN, Starting on 11/08/23 at 1921, Until Fri11/11/23 at 1857, Low blood sugar, For BG 50-70 mg/dL: Oral treatment preferred: If able to drink, give 120 mL juice or regular (not diet) soda OR if NPO, give 15 gram glucose 40% oral gel massaged into buccal mucosa OR if unconscious or uncooperative, give 25 gram (250 mL) dextrose 10% IV over 15 minutes per protocol OR, if no IV access, 1 mg glucagon IM. For BG less than 50 mg/dL: Oral treatment preferred: If able to drink, give 240 mL juice or regular (not diet) soda OR if NPO, give 30 gram glucose 40% oral gel massaged in buccal mucosa OR if unconscious or uncooperative, give 25 gram (250 mL) dextrose 10% IV over 15 minutes per protocol OR, if no IV access, 1 mg glucagon IM. Recheck BG in 15 minutes. May repeat juice/soda, gel, dextrose or glucagon once per episode. Notify provider if hypoglycemia does not resolve after two treatments. Providers should consider the following: administering longer-acting treatments for the duration of active insulin or hypoglycemia agent for persistent hypoglycemia and re-evaluating active insulin orders before administering the next dose. , Routine glucose (Glutose) 40% oral geL 15-30 g of glucose, Buccal, EVERY 15 MIN PRN, Starting on 11/08/23 at 1921, Until Fri11/11/23 at 1857, Low blood sugar, For BG 50-70 mg/dL: Oral treatment preferred: If able to drink, give 120 mL juice or regular (not diet) soda OR if NPO, give 15 gram glucose 40% oral gel massaged into buccal mucosa OR if unconscious or uncooperative, give 25 gram (250 mL) dextrose 10% IV over 15 minutes per protocol OR, if no IV access, 1 mg glucagon IM. For BG less than 50 mg/dL: Oral treatment preferred: If able to drink, give 240 mL juice or regular (not diet) soda OR if NPO, give 30 gram glucose 40% oral gel massaged in buccal mucosa OR if unconscious or uncooperative, give 25 gram (250 mL) dextrose 10% IV over 15 minutes per protocol OR, if no IV access, 1 mg glucagon IM. Recheck BG in 15 minutes. May repeat juice/soda, gel, dextrose or glucagon once per episode. Notify provider if hypoglycemia does not resolve after two treatments. Providers should consider the following: administering longer-acting treatments for the duration of active insulin or hypoglycemia agent for persistent hypoglycemia and re-evaluating active insulin orders before administering the next dose. 1 tube of Glutose-15 contains 15 grams of glucose (net weight of tube = 37.5 grams.), Routine insulin glargine-ygfn (Semglee) (100 unit/mL) subcutaneous injection vial 15 Units 15 Units, Subcutaneous, NIGHTLY, First dose on 11/08/23 at 2100, Until Discontinued, Routine Given 11/10/2023 8:12 PM EST 15 Units Given 11/09/2023 8:38 PM EST 15 Units insulin glargine-ygfn (Semglee) (100 unit/mL) subcutaneous injection vial 21 Units 21 Units, Subcutaneous, DAILY, First dose on 11/09/23 at 0900, Until Discontinued, Routine Given 11/11/2023 8:57 AM EST 21 Units Given 11/10/2023 8:31 AM EST 21 Units Given 11/09/2023 9:03 AM EST 21 Units insulin lispro (HumaLOG;Admelog) (100 unit/mL) subcutaneous injection vial 0-8 Units 0-8 Units, Subcutaneous, 3 TIMES DAILY WITH MEALS, First dose on 11/09/23 at 1700, Until Discontinued, [employer] Give 1 unit for every 10 grams carbohydrate. Hold if not eating or if BG less than 70 mg/dL. , Routine Given 11/11/2023 2:18 PM EST 6 Units Given 11/11/2023 8:57 AM EST 5 Units Given 11/10/2023 5:34 PM EST 4 Units insulin lispro (HumaLOG;Admelog) (100 unit/mL) subcutaneous injection vial 1-4 Units 1-4 Units, Subcutaneous, 3 TIMES DAILY BEFORE MEALS, First dose on 11/09/23 at 0730, Until Discontinued, CORRECTION BOLUS [1-4 Units] Sensitive Sliding Scale (BG in mg/dL): Correction factor 40 (1 unit of insulin is expected to drop the glucose 40 mg/dL) ?? BG 160 - 200 Give 1 unit BG 201 - 240 Give 2 units BG 241 - 280 Give 3 units and recheck BG in 2 hours. BG greater than 280, give 4 units and recheck BG in 2 hours. - If recheck BG is LESS than 280, give no insulin and resume schedule - If recheck BG is GREATER than or EQUAL to 280, give 4 units and repeat BG in 2 hours & call for new insulin orders. DO NOT hold if NPO, unless specifically told to do so. ?? Per Inpatient Subcutaneous Insulin Policy, recheck a BG of greater than 240 mg/dL in 2 hours., Routine Given 11/09/2023 12:07 PM EST 4 Units insulin lispro (HumaLOG;Admelog) (100 unit/mL) subcutaneous injection vial 1-6 Units 1-6 Units, Subcutaneous, 3 TIMES DAILY BEFORE MEALS, First dose on Fri11/09/23 at 1630, Until Discontinued, CORRECTION BOLUS [1-6 Units] Moderate Sliding Scale (BG in mg/dL): Correction factor 20 (1 unit of insulin is expected to drop the glucose 20 mg/dL) BG 140 - 160 Give 1 unit BG 161 - 180 Give 2 units BG 181 - 200 Give 3 units BG 201 - 220 Give 4 units BG 221 - 240 Give 5 units BG greater than 240, give 6 units and recheck BG in 2 hours. - If recheck BG is LESS than 240, give no insulin and resume schedule. - If recheck BG is GREATER than or EQUAL to 240, give 6 units and repeat BG in 2 hours & call for new insulin orders. DO NOT hold if NPO, unless specifically told to do so. ?? Per Inpatient Subcutaneous Insulin Policy, recheck a BG of greater than 240 mg/dL in 2 hours., Routine Given 11/10/2023 3:42 PM EST 1 Units Given 11/10/2023 11:56 AM EST 1 Units Given 11/09/2023 4:43 PM EST 1 Units insulin lispro (HumaLOG;Admelog) (100 unit/mL) subcutaneous injection vial 1-6 Units 1-6 Units, Subcutaneous, 3 TIMES DAILY BEFORE MEALS, First dose on Fri11/11/23 at 0730, Until Discontinued, CORRECTION BOLUS [1-6 Units] Moderate Sliding Scale (BG in mg/dL): Correction factor 20 (1 unit of insulin is expected to drop the glucose 20 mg/dL) BG 140 - 160 Give 1 unit BG 161 - 180 Give 2 units BG 181 - 200 Give 3 units BG 201 - 220 Give 4 units BG 221 - 240 Give 5 units BG greater than 240, give 6 units and recheck BG in 2 hours. - If recheck BG is LESS than 240, give no insulin and resume schedule. - If recheck BG is GREATER than or EQUAL to 240, give 6 units and repeat BG in 2 hours & call for new insulin orders. DO NOT hold if NPO, unless specifically told to do so. ?? Per Inpatient Subcutaneous Insulin Policy, recheck a BG of greater than 240 mg/dL in 2 hours., Routine Given 11/11/2023 12:21 PM EST 2 Units insulin lispro (HumaLOG;Admelog) (100 unit/mL) subcutaneous injection vial 10 Units 10 Units, Subcutaneous, ONCE, 1 dose, On Fri11/09/23 at 1415, Routine Given 11/09/2023 2:20 PM EST 10 Units iron sucrose (Venofer) 300 mg in sodium chloride 0.9% 115 mL infusion 300 mg, Intravenous, DAILY, 3 doses, First dose on Fri11/09/23 at 1500, Last dose on Fri11/11/23 at 0900, Administer over 90 Minutes, Patients should be closely monitored for signs of hypersensitivity during and for at least 30 min after each administration. The observation period is not needed for patients who have demonstrated tolerability. New Bag 11/11/2023 8:58 AM EST 300 mg 76.7 mL/hr New Bag 11/10/2023 9:15 AM EST 300 mg 76.7 mL/hr New Bag 11/09/2023 3:01 PM EST 300 mg 76.7 mL/hr metoprolol succinate XL (Toprol-XL) tablet 25 mg 25 mg, Oral, DAILY, First dose on Fri11/11/23 at 1100, Until Discontinued, DO NOT CRUSH OR OPEN, Routine Given 11/11/2023 12:20 PM EST 25 mg metoprolol tartrate (Lopressor) tablet 12.5 mg 12.5 mg, Oral, EVERY 6 HOURS SCHEDULED, First dose on Fri11/09/23 at 1030, Until Discontinued, Routine Given 11/09/2023 9:58 AM EST 12.5 mg metoprolol tartrate (Lopressor) tablet 12.5 mg 12.5 mg, Oral, ONCE, 1 dose, On 11/09/23 at 1430, Routine Given 11/09/2023 2:21 PM EST 12.5 mg metoprolol tartrate (Lopressor) tablet 12.5 mg 12.5 mg, Oral, EVERY 6 HOURS SCHEDULED, First dose (after last modification) on 11/10/23 at 0000, Until Discontinued, Routine Given 11/09/2023 11:33 PM EST 12.5 mg metoproloL tartrate (Lopressor) tablet 25 mg 25 mg, Oral, EVERY 6 HOURS SCHEDULED, First dose (after last modification) on 11/09/23 at 1800, Until Discontinued, Routine Given 11/09/2023 5:47 PM EST 25 mg pantoprazole EC (Protonix) tablet 40 mg 40 mg, Oral, DAILY, First dose on 11/08/23 at 2015, Until Discontinued Given 11/11/2023 8:56 AM EST 40 mg Given 11/10/2023 8:25 AM EST 40 mg Given 11/09/2023 9:00 AM EST 40 mg sodium chloride 0.9 % (flush) (BD PosiFlush Normal Saline 0.9) flush 5 mL 5 mL, Intravenous, 2 TIMES DAILY, First dose on 11/08/23 at 2100, Until Discontinued, Routine Given 11/11/2023 8:58 AM EST 5 mLs Given 11/10/2023 8:12 PM EST 5 mLs Given 11/10/2023 8:33 AM EST 5 mLs spironolactone (Aldactone) tablet 12.5 mg 12.5 mg, Oral, DAILY, First dose on 11/10/23 at 1530, Until Discontinued, DO NOT SPLIT, CRUSH OR OPEN, Routine Given 11/11/2023 8:56 AM EST 12.5 mg Given 11/10/2023 3:19 PM EST 12.5 mg valsartan (Diovan) tablet 20 mg 20 mg, Oral, 2 TIMES DAILY, First dose on 11/09/23 at 2100, Until Discontinued, Hold for SBP<100 Given 11/09/2023 8:38 PM EST 20 mg documented in this encounter Active and Recently Administered Medications Times are shown in EST. Scheduled Medication Order 11/09/2023 11/10/2023 11/11/2023 ascorbic acid (Vitamin C) (Vitamin C) tablet 500 mg 500 mg, Oral, DAILY, First dose on 11/08/23 at 2015, Until Discontinued 0900 (Given - Provider: David Powell RN) 0823 (Given - Provider: David Powell RN) 0856 (Given - Provider: Rosalind Simmons RN) aspirin chewable tablet 81 mg 81 mg, Oral, DAILY, First dose on 11/09/23 at 0900, Until Discontinued, Routine 0900 (Given - Provider: David Powell RN) 0825 (Given - Provider: David Powell RN) 0900 (Given - Provider: Rosalind Simmons RN) atorvastatin (Lipitor) tablet 80 mg 80 mg, Oral, EVERY EVENING, First dose on 11/08/23 at 2030, Until Discontinued, Routine 1647 (Given - Provider: David Powell RN) 1659 (Given - Provider: David Powell RN) clopidogreL (Plavix) tablet 75 mg 75 mg, Oral, DAILY, First dose on 11/09/23 at 0900, Until Discontinued, Routine 0900 (Given - Provider: David Powell RN) 0825 (Given - Provider: David Powell RN) 0856 (Given - Provider: Rosalind Simmons RN) empagliflozin (Jardiance) tablet 25 mg 25 mg, Oral, DAILY, First dose on 11/09/23 at 1030, Until Discontinued, This medication should not be given with reduced PO intake/fluid loss, severe illness, or in patients with ketonemia or ketouria., Routine, This medication should be held for 3 days prior to surgery. Is there a planned procedure within 3 days? No, Indication for empagliflozin: diabetes, Is this a continuation of therapy from home? Yes 0958 (Given - Provider: David Powell RN) 0825 (Given - Provider: David Powell RN) 0856 (Given - Provider: Rosalind Simmons RN) enoxaparin (Lovenox) (40 mg/0.4 mL) subcutaneous injection 40 mg 40 mg, Subcutaneous, NIGHTLY, First dose (after last modification) on 11/09/23 at 2100, Until Discontinued, Routine 2037 (Given - Provider: Vanessa Gold RN) 2011 (Given - Provider: Jen Chang, NEMO) insulin glargine-ygfn (Semglee) (100 unit/mL) subcutaneous injection vial 15 Units 15 Units, Subcutaneous, NIGHTLY, First dose on 11/08/23 at 2100, Until Discontinued, Routine 2037 (Given - Provider: Vanessa Gold RN) 2011 (Given - Provider: Jen Chang, NEMO) insulin glargine-ygfn (Semglee) (100 unit/mL) subcutaneous injection vial 21 Units 21 Units, Subcutaneous, DAILY, First dose on 11/09/23 at 0900, Until Discontinued, Routine 09 (Given - Provider: David Powell RN) 0831 (Given - Provider: David Powell RN) 0857 (Given - Provider: Rosalind Simmons RN) insulin lispro (HumaLOG;Admelog) (100 unit/mL) subcutaneous injection vial 0-8 Units 0-8 Units, Subcutaneous, 3 TIMES DAILY WITH MEALS, First dose on 11/09/23 at 1700, Until Discontinued, [employer] Give 1 unit for every 10 grams carbohydrate. Hold if not eating or if BG less than 70 mg/dL. , Routine 1747 (Given - Provider: David Powell RN) 0835 (Given - Provider: David Powell RN)1241 (Given - Provider: David Powell RN)1734 (Given - Provider: David Powell RN) 0857 (Given - Provider: Rosalind Simmons, NEMO)1418 (Given - Provider: Rosalind Simmons, NEMO - Comment: delayed eating) insulin lispro (HumaLOG;Admelog) (100 unit/mL) subcutaneous injection vial 1-4 Units (CANCELED)(Linked Group 1) 1-4 Units, Subcutaneous, 3 TIMES DAILY BEFORE MEALS, First dose on 11/09/23 at 0730, Until Discontinued, CORRECTION BOLUS [1-4 Units] Sensitive Sliding Scale (BG in mg/dL): Correction factor 40 (1 unit of insulin is expected to drop the glucose 40 mg/dL) ?? BG 160 - 200 Give 1 unit BG 201 - 240 Give 2 units BG 241 - 280 Give 3 units and recheck BG in 2 hours. BG greater than 280, give 4 units and recheck BG in 2 hours. - If recheck BG is LESS than 280, give no insulin and resume schedule - If recheck BG is GREATER than or EQUAL to 280, give 4 units and repeat BG in 2 hours & call for new insulin orders. DO NOT hold if NPO, unless specifically told to do so. ?? Per Inpatient Subcutaneous Insulin Policy, recheck a BG of greater than 240 mg/dL in 2 hours., Routine 0730 (Not Given - Provider: David Powell RN - Reason: Order parameters not met)1207 (Given - Provider: David Powell RN) insulin lispro (HumaLOG;Admelog) (100 unit/mL) subcutaneous injection vial 1-6 Units (CANCELED)(Linked Group 2) 1-6 Units, Subcutaneous, 3 TIMES DAILY BEFORE MEALS, First dose on 11/09/23 at 1630, Until Discontinued, CORRECTION BOLUS [1-6 Units] Moderate Sliding Scale (BG in mg/dL): Correction factor 20 (1 unit of insulin is expected to drop the glucose 20 mg/dL) BG 140 - 160 Give 1 unit BG 161 - 180 Give 2 units BG 181 - 200 Give 3 units BG 201 - 220 Give 4 units BG 221 - 240 Give 5 units BG greater than 240, give 6 units and recheck BG in 2 hours. - If recheck BG is LESS than 240, give no insulin and resume schedule. - If recheck BG is GREATER than or EQUAL to 240, give 6 units and repeat BG in 2 hours & call for new insulin orders. DO NOT hold if NPO, unless specifically told to do so. ?? Per Inpatient Subcutaneous Insulin Policy, recheck a BG of greater than 240 mg/dL in 2 hours., Routine 1643 (Given - Provider: David Powell RN) 0730 (Not Given - Provider: David Powell RN - Reason: Order parameters not met)1156 (Given - Provider: David Powell RN)1542 (Given - Provider: David Powell RN) insulin lispro (HumaLOG;Admelog) (100 unit/mL) subcutaneous injection vial 1-6 Units(Linked Group 3) 1-6 Units, Subcutaneous, 3 TIMES DAILY BEFORE MEALS, First dose on Fri11/11/23 at 0730, Until Discontinued, CORRECTION BOLUS [1-6 Units] Moderate Sliding Scale (BG in mg/dL): Correction factor 20 (1 unit of insulin is expected to drop the glucose 20 mg/dL) BG 140 - 160 Give 1 unit BG 161 - 180 Give 2 units BG 181 - 200 Give 3 units BG 201 - 220 Give 4 units BG 221 - 240 Give 5 units BG greater than 240, give 6 units and recheck BG in 2 hours. - If recheck BG is LESS than 240, give no insulin and resume schedule. - If recheck BG is GREATER than or EQUAL to 240, give 6 units and repeat BG in 2 hours & call for new insulin orders. DO NOT hold if NPO, unless specifically told to do so. ?? Per Inpatient Subcutaneous Insulin Policy, recheck a BG of greater than 240 mg/dL in 2 hours., Routine 0730 (Not Given - Provider: Rosalind Simmons RN - Reason: Order parameters not met)1221 (Given - Provider: Rosalind Simmons RN)1630 (Due) insulin lispro (HumaLOG;Admelog) (100 unit/mL) subcutaneous injection vial 10 Units (COMPLETED) 10 Units, Subcutaneous, ONCE, 1 dose, On Fri11/09/23 at 1415, Routine 1420 (Given - Provider: David Powell RN) iron sucrose (Venofer) 300 mg in sodium chloride 0.9% 115 mL infusion (COMPLETED) 300 mg, Intravenous, DAILY, 3 doses, First dose on Fri11/09/23 at 1500, Last dose on Fri11/11/23 at 0900, Administer over 90 Minutes, Patients should be closely monitored for signs of hypersensitivity during and for at least 30 min after each administration. The observation period is not needed for patients who have demonstrated tolerability. 1501 (New Bag - Provider: David Powell RN)1631 (Stopped - Provider: David Powell RN) 0915 (New Bag - Provider: David Powell RN)1045 (Stopped - Provider: David Powell RN) 0858 (New Bag - Provider: Rosalind Simmons RN)1028 (Stopped - Provider: Rosalind Simmons RN) metoprolol succinate XL (Toprol-XL) tablet 25 mg 25 mg, Oral, DAILY, First dose on Fri11/11/23 at 1100, Until Discontinued, DO NOT CRUSH OR OPEN, Routine 1220 (Given - Provider: Rosalind Simmons RN) metoprolol tartrate (Lopressor) tablet 12.5 mg (CANCELED) 12.5 mg, Oral, EVERY 6 HOURS SCHEDULED, First dose on 11/09/23 at 1030, Until Discontinued, Routine 0958 (Given - Provider: David Powell RN) metoprolol tartrate (Lopressor) tablet 12.5 mg (COMPLETED) 12.5 mg, Oral, ONCE, 1 dose, On 11/09/23 at 1430, Routine 1421 (Given - Provider: David Powell RN) metoprolol tartrate (Lopressor) tablet 12.5 mg (CANCELED) 12.5 mg, Oral, EVERY 6 HOURS SCHEDULED, First dose (after last modification) on 11/10/23 at 0000, Until Discontinued, Routine 2333 (Given - Provider: Vanessa Gold RN) metoproloL tartrate (Lopressor) tablet 25 mg (CANCELED) 25 mg, Oral, EVERY 6 HOURS SCHEDULED, First dose (after last modification) on 11/09/23 at 1800, Until Discontinued, Routine 1747 (Given - Provider: Daivd Powell RN) pantoprazole EC (Protonix) tablet 40 mg 40 mg, Oral, DAILY, First dose on 11/08/23 at 2015, Until Discontinued 0900 (Given - Provider: David Powell RN) 0825 (Given - Provider: David Powell RN) 0856 (Given - Provider: Rosalind Simmons RN) sodium chloride 0.9 % (flush) (BD PosiFlush Normal Saline 0.9) flush 5 mL 5 mL, Intravenous, 2 TIMES DAILY, First dose on 11/08/23 at 2100, Until Discontinued, Routine 0902 (Given - Provider: David Powell RN)2041 (Given - Provider: Vanessa Gold RN) 0833 (Given - Provider: David Powell RN)2011 (Given - Provider: Jen Chang RN) 0858 (Given - Provider: Rosalind Simmons RN) spironolactone (Aldactone) tablet 12.5 mg 12.5 mg, Oral, DAILY, First dose on Fri11/10/23 at 1530, Until Discontinued, DO NOT SPLIT, CRUSH OR OPEN, Routine 151 (Given - Provider: David Powell RN) 0856 (Given - Provider: Rosalind Simmons RN) valsartan (Diovan) tablet 20 mg (CANCELED) 20 mg, Oral, 2 TIMES DAILY, First dose on Fri11/09/23 at 2100, Until Discontinued, Hold for SBP<100 2037 (Given - Provider: Vanessa Gold RN) 0823 (Not Given - Provider: David Powell RN - Reason: Order parameters not met) PRN Medication Order 11/09/2023 11/10/2023 11/11/2023 acetaminophen (Tylenol) tablet 650 mg 650 mg, Oral, EVERY 4 HOURS PRN, Starting on 11/08/23 at 1925, Until Fri11/11/23 at 1857, Pain, Headaches, Maximum dose of acetaminophen is 4,000 mg from all sources in 24 hours. When ordered for pain, acetaminophen should be given even when other ordered pain medications are indicated., Routine benzonatate (Tessalon) capsule 100 mg 100 mg, Oral, 3 TIMES DAILY PRN, Starting on 11/08/23 at 1925, Until Fri11/11/23 at 1857, Cough, DO NOT CRUSH OR OPEN, Routine 09 (Given - Provid er: Rosalind Simmons RN) dextrose 10% infusion(Linked Group 4) 250 mL, at 1,000 mL/hr, Intravenous, EVERY 15 MIN PRN, Starting on 11/08/23 at 1921, Until Fri11/11/23 at 1857, For BG 50-70 mg/dL: Oral treatment preferred: If able to drink, give 120 mL juice or regular (not diet) soda OR if NPO, give 15 gram glucose 40% oral gel massaged into buccal mucosa OR if unconscious or uncooperative, give 25 gram (250 mL) dextrose 10% IV over 15 minutes per protocol OR, if no IV access, 1 mg glucagon IM. For BG less than 50 mg/dL: Oral treatment preferred: If able to drink, give 240 mL juice or regular (not diet) soda OR if NPO, give 30 gram glucose 40% oral gel massaged in buccal mucosa OR if unconscious or uncooperative, give 25 gram (250 mL) dextrose 10% IV over 15 minutes per protocol OR, if no IV access, 1 mg glucagon IM. Recheck BG in 15 minutes. May repeat juice/soda, gel, dextrose or glucagon once per episode. Notify provider if hypoglycemia does not resolve after two treatments. Providers should consider the following: administering longer-acting treatments for the duration of active insulin or hypoglycemia agent for persistent hypoglycemia and re-evaluating active insulin orders before administering the next dose. fluticasone propionate (Flonase) 50 mcg/actuation nasal spray 1 spray 1 spray, Each Nare, DAILY PRN, Starting on 11/08/23 at 1925, Until 11/11/23 at 1857, Rhinitis, Routine glucagon (Glucagen) (1 mg/mL) injection solution 1 mg(Linked Group 4) 1 mg, Intramuscular, EVERY 15 MIN PRN, Starting on 11/08/23 at 1921, Until 11/11/23 at 1857, Low blood sugar, For BG 50-70 mg/dL: Oral treatment preferred: If able to drink, give 120 mL juice or regular (not diet) soda OR if NPO, give 15 gram glucose 40% oral gel massaged into buccal mucosa OR if unconscious or uncooperative, give 25 gram (250 mL) dextrose 10% IV over 15 minutes per protocol OR, if no IV access, 1 mg glucagon IM. For BG less than 50 mg/dL: Oral treatment preferred: If able to drink, give 240 mL juice or regular (not diet) soda OR if NPO, give 30 gram glucose 40% oral gel massaged in buccal mucosa OR if unconscious or uncooperative, give 25 gram (250 mL) dextrose 10% IV over 15 minutes per protocol OR, if no IV access, 1 mg glucagon IM. Recheck BG in 15 minutes. May repeat juice/soda, gel, dextrose or glucagon once per episode. Notify provider if hypoglycemia does not resolve after two treatments. Providers should consider the following: administering longer-acting treatments for the duration of active insulin or hypoglycemia agent for persistent hypoglycemia and re-evaluating active insulin orders before administering the next dose. , Routine glucose (Glutose) 40% oral geL(Linked Group 4) 15-30 g of glucose, Buccal, EVERY 15 MIN PRN, Starting on 11/08/23 at 1921, Until Fri11/11/23 at 1857, Low blood sugar, For BG 50-70 mg/dL: Oral treatment preferred: If able to drink, give 120 mL juice or regular (not diet) soda OR if NPO, give 15 gram glucose 40% oral gel massaged into buccal mucosa OR if unconscious or uncooperative, give 25 gram (250 mL) dextrose 10% IV over 15 minutes per protocol OR, if no IV access, 1 mg glucagon IM. For BG less than 50 mg/dL: Oral treatment preferred: If able to drink, give 240 mL juice or regular (not diet) soda OR if NPO, give 30 gram glucose 40% oral gel massaged in buccal mucosa OR if unconscious or uncooperative, give 25 gram (250 mL) dextrose 10% IV over 15 minutes per protocol OR, if no IV access, 1 mg glucagon IM. Recheck BG in 15 minutes. May repeat juice/soda, gel, dextrose or glucagon once per episode. Notify provider if hypoglycemia does not resolve after two treatments. Providers should consider the following: administering longer-acting treatments for the duration of active insulin or hypoglycemia agent for persistent hypoglycemia and re-evaluating active insulin orders before administering the next dose. 1 tube of Glutose-15 contains 15 grams of glucose (net weight of tube = 37.5 grams.), Routine lidocaine (Xylocaine) 1% (10 mg/mL) injection 3 mg 3 mg (0.3 mL), Subcutaneous, ONCE PRN, 1 dose, Starting on 11/08/23 at 1925, Until Fri11/11/23 at 1857, for discomfort with PIV insertion, Routine nitroGLYcerin (Nitrostat) disintegrating tablet 0.4 mg 0.4 mg, Sublingual, EVERY 5 MIN PRN, Starting on 11/08/23 at 1925, Until 11/11/23 at 1857, Chest pain, May repeat every 5 minutes for a total of three doses. Notify provider if chest pain not relieved with nitroglycerin. Do not administer nitroglycerin if the patient has received or taken phosphodiesterase (PDE-5) inhibitors such as sildenafil, tadalafil or vardenafil within the last 24 to 72 hours., Routine Linked Groups Order Group 1: POCT Fingerstick Glucose (CANCELED) Routine, 4 TIMES DAILY BEFORE MEALS & AT BEDTIME, First occurrence on 11/08/23 at 2200, Until Specified, Consider choosing FOUR TIMES A DAY BEFORE MEALS AND AT BEDTIME as frequency for: Patients who have good hypoglycemia awareness: -Patients who are eating meals during the day and sleeping at night -Patients who are otherwise stable And insulin lispro (HumaLOG;Admelog) (100 unit/mL) subcutaneous injection vial 1-4 Units (CANCELED)Jump to med 1-4 Units, Subcutaneous, 3 TIMES DAILY BEFORE MEALS, First dose on Fri11/09/23 at 0730, Until Discontinued, CORRECTION BOLUS [1-4 Units] Sensitive Sliding Scale (BG in mg/dL): Correction factor 40 (1 unit of insulin is expected to drop the glucose 40 mg/dL) ?? BG 160 - 200 Give 1 unit BG 201 - 240 Give 2 units BG 241 - 280 Give 3 units and recheck BG in 2 hours. BG greater than 280, give 4 units and recheck BG in 2 hours. - If recheck BG is LESS than 280, give no insulin and resume schedule - If recheck BG is GREATER than or EQUAL to 280, give 4 units and repeat BG in 2 hours & call for new insulin orders. DO NOT hold if NPO, unless specifically told to do so. ?? Per Inpatient Subcutaneous Insulin Policy, recheck a BG of greater than 240 mg/dL in 2 hours., Routine Group 2: POCT Fingerstick Glucose (CANCELED) Routine, 4 TIMES DAILY BEFORE MEALS & AT BEDTIME, First occurrence on 11/09/23 at 1700, Until Specified, Consider choosing FOUR TIMES A DAY BEFORE MEALS AND AT BEDTIME as frequency for: Patients who have a good hypoglycemia awareness: -Patients who are eating meals during the day and sleeping at night -Patients who are otherwise stable And insulin lispro (HumaLOG;Admelog) (100 unit/mL) subcutaneous injection vial 1-6 Units (CANCELED)Jump to med 1-6 Units, Subcutaneous, 3 TIMES DAILY BEFORE MEALS, First dose on Fri11/09/23 at 1630, Until Discontinued, CORRECTION BOLUS [1-6 Units] Moderate Sliding Scale (BG in mg/dL): Correction factor 20 (1 unit of insulin is expected to drop the glucose 20 mg/dL) BG 140 - 160 Give 1 unit BG 161 - 180 Give 2 units BG 181 - 200 Give 3 units BG 201 - 220 Give 4 units BG 221 - 240 Give 5 units BG greater than 240, give 6 units and recheck BG in 2 hours. - If recheck BG is LESS than 240, give no insulin and resume schedule. - If recheck BG is GREATER than or EQUAL to 240, give 6 units and repeat BG in 2 hours & call for new insulin orders. DO NOT hold if NPO, unless specifically told to do so. ?? Per Inpatient Subcutaneous Insulin Policy, recheck a BG of greater than 240 mg/dL in 2 hours., Routine Group 3: POCT Fingerstick Glucose (CANCELED) Routine, 4 TIMES DAILY BEFORE MEALS & AT BEDTIME, First occurrence on Fri11/10/23 at 2200, Until Specified, Consider choosing FOUR TIMES A DAY BEFORE MEALS AND AT BEDTIME as frequency for: Patients who have a good hypoglycemia awareness: -Patients who are eating meals during the day and sleeping at night -Patients who are otherwise stable And insulin lispro (HumaLOG;Admelog) (100 unit/mL) subcutaneous injection vial 1-6 UnitsJump to med 1-6 Units, Subcutaneous, 3 TIMES DAILY BEFORE MEALS, First dose on Fri11/11/23 at 0730, Until Discontinued, CORRECTION BOLUS [1-6 Units] Moderate Sliding Scale (BG in mg/dL): Correction factor 20 (1 unit of insulin is expected to drop the glucose 20 mg/dL) BG 140 - 160 Give 1 unit BG 161 - 180 Give 2 units BG 181 - 200 Give 3 units BG 201 - 220 Give 4 units BG 221 - 240 Give 5 units BG greater than 240, give 6 units and recheck BG in 2 hours. - If recheck BG is LESS than 240, give no insulin and resume schedule. - If recheck BG is GREATER than or EQUAL to 240, give 6 units and repeat BG in 2 hours & call for new insulin orders. DO NOT hold if NPO, unless specifically told to do so. ?? Per Inpatient Subcutaneous Insulin Policy, recheck a BG of greater than 240 mg/dL in 2 hours., Routine Group 4: glucose (Glutose) 40% oral geLJump to med 15-30 g of glucose, Buccal, EVERY 15 MIN PRN, Starting on 11/08/23 at 1921, Until Fri11/11/23 at 1857, Low blood sugar, For BG 50-70 mg/dL: Oral treatment preferred: If able to drink, give 120 mL juice or regular (not diet) soda OR if NPO, give 15 gram glucose 40% oral gel massaged into buccal mucosa OR if unconscious or uncooperative, give 25 gram (250 mL) dextrose 10% IV over 15 minutes per protocol OR, if no IV access, 1 mg glucagon IM. For BG less than 50 mg/dL: Oral treatment preferred: If able to drink, give 240 mL juice or regular (not diet) soda OR if NPO, give 30 gram glucose 40% oral gel massaged in buccal mucosa OR if unconscious or uncooperative, give 25 gram (250 mL) dextrose 10% IV over 15 minutes per protocol OR, if no IV access, 1 mg glucagon IM. Recheck BG in 15 minutes. May repeat juice/soda, gel, dextrose or glucagon once per episode. Notify provider if hypoglycemia does not resolve after two treatments. Providers should consider the following: administering longer-acting treatments for the duration of active insulin or hypoglycemia agent for persistent hypoglycemia and re-evaluating active insulin orders before administering the next dose. 1 tube of Glutose-15 contains 15 grams of glucose (net weight of tube = 37.5 grams.), Routine Or dextrose 10% infusionJump to med 250 mL, at 1,000 mL/hr, Intravenous, EVERY 15 MIN PRN, Starting on 11/08/23 at 1921, Until Fri11/11/23 at 1857, For BG 50-70 mg/dL: Oral treatment preferred: If able to drink, give 120 mL juice or regular (not diet) soda OR if NPO, give 15 gram glucose 40% oral gel massaged into buccal mucosa OR if unconscious or uncooperative, give 25 gram (250 mL) dextrose 10% IV over 15 minutes per protocol OR, if no IV access, 1 mg glucagon IM. For BG less than 50 mg/dL: Oral treatment preferred: If able to drink, give 240 mL juice or regular (not diet) soda OR if NPO, give 30 gram glucose 40% oral gel massaged in buccal mucosa OR if unconscious or uncooperative, give 25 gram (250 mL) dextrose 10% IV over 15 minutes per protocol OR, if no IV access, 1 mg glucagon IM. Recheck BG in 15 minutes. May repeat juice/soda, gel, dextrose or glucagon once per episode. Notify provider if hypoglycemia does not resolve after two treatments. Providers should consider the following: administering longer-acting treatments for the duration of active insulin or hypoglycemia agent for persistent hypoglycemia and re-evaluating active insulin orders before administering the next dose. Or glucagon (Glucagen) (1 mg/mL) injection solution 1 mgJump to med 1 mg, Intramuscular, EVERY 15 MIN PRN, Starting on 11/08/23 at 1921, Until 11/11/23 at 1857, Low blood sugar, For BG 50-70 mg/dL: Oral treatment preferred: If able to drink, give 120 mL juice or regular (not diet) soda OR if NPO, give 15 gram glucose 40% oral gel massaged into buccal mucosa OR if unconscious or uncooperative, give 25 gram (250 mL) dextrose 10% IV over 15 minutes per protocol OR, if no IV access, 1 mg glucagon IM. For BG less than 50 mg/dL: Oral treatment preferred: If able to drink, give 240 mL juice or regular (not diet) soda OR if NPO, give 30 gram glucose 40% oral gel massaged in buccal mucosa OR if unconscious or uncooperative, give 25 gram (250 mL) dextrose 10% IV over 15 minutes per protocol OR, if no IV access, 1 mg glucagon IM. Recheck BG in 15 minutes. May repeat juice/soda, gel, dextrose or glucagon once per episode. Notify provider if hypoglycemia does not resolve after two treatments. Providers should consider the following: administering longer-acting treatments for the duration of active insulin or hypoglycemia agent for persistent hypoglycemia and re-evaluating active insulin orders before administering the next dose. , Routine documented in this encounter Care Teams Cook Box Filler Relationship Specialty Start Date End Date Ermias Teague, [employer] [address] [place] [address] [address] [place] [address] PCP - General Family Medicine 10/01/22 documented as of this encounter
--- OUTSIDE RECORDS SUMMARY | 2024-10-08 00:36 | XMS_ITS | Encounter Summary ---
Author Organization [facility] Address [facility] [place] [address] Care Team Providers Care Japanese Tutor Name Role Phone HoLamaikel Pope APRN Primary Care Provider [phone]- [phone] Reason for Visit * Reason Onset Date Comments Results 02/16/2024 Encounter Details Date Type Department Care Team (Late st Contact Info) Description 02/16/2024 Telephone Cardiology at [address] [place] [address] Benjie Garrison MD [facility] [place] [address] Results Social History Tobacco Use Types Packs/Day Years Used Date Smoking Tobacco: Former Cigarettes Q uit: 12/27/1988 Smokeless Tobacco: Never Alcohol Use Standard Drinks/Week Comments No 0 (1 standard drink = 0.6 oz pur e alcohol) [facility] Utilities Answer Date Recorded In the past 12 months has [employer], gas, oil, or water company threatened [...] place to sleep or slept in a alf (including now)? No 11/10/2023 DH IPV Inpatient [...] Telephone Encounter - Liz Agrawal RN - 02/16/2024 2:09 PM EDT Results of echocardiogram study were read to Ervin. He is pleased the EF has improved significantly. Plan: Next follow up with Dr. Garrison is now scheduled April 12. documented in this encounter Plan of Treatment Upcoming Encounters Date Type Department Care Team (Late st Contact Info) Description 11/08/2024 3:30 PM EST Office Visit Dermatology at [address] [place] [phone] Prosper Schmidt MD [address] [place] [address], [facility] [address] 12/14/2024 2:40 PM EST Office Visit Cardiology at [address] [place] [id number] Benjie Garrison MD [facility] [place] [address] documented as of this encounter Visit Diagnoses Not on filedocumented in this encounter Care Teams Japanese Tutor Relationship Specialty Start Date End Date Ermias Teague, PESTICIDE CHEMIST [address] [place] [address] [address] [facility] [address] [place] [address] PCP - General Family Medicine 10/01/22 documented as of this encounter
--- OUTSIDE RECORDS SUMMARY | 2024-10-08 00:36 | XMS_ITS | Encounter Summary ---
Author Organization [facility] Address [facility] [place] [address] Care Team Providers Care Content Producer Name Role Phone HoLamaikel Pope APRN Primary Care Provider [phone]- [phone] Encounter Details Date Type Department Care Team (Late st Contact Info) Description 12/16/2023 Abstract Cardiology at [address] [place] [address] Francheska Langston RN Social History Tobacco Use Types Packs/Day Years Used Date Smoking Tobacco: Former Cigarettes Q uit: 12/27/1988 Smokeless Tobacco: Never Alcohol Use Standard Drinks/Week Comments No 0 (1 standard drink = 0.6 oz pur e alcohol) [facility] Utilities Answer Date Recorded In the past 12 months has [facility], gas, oil, or water [employer] threatened to shut off services in your [...] place to sleep or slept in a [place] (including now)? No 11/10/2023 DH IPV Inpatient [...] 3:30 PM EST Office Visit Dermatology at [address] [phone] Prosper Schmidt MD [address] [place] [address], [facility] [address] 12/14/2024 2:40 PM EST Office Visit Cardiology at [address] [address] Benjie Garrison MD [facility] [place] [address] documented as of this encounter Visit Diagnoses Not on filedocumented in this encounter Care Teams Content Producer Relationship Specialty Start Date End Date Ermias Teague APRN [address] [place] [address] PCP - General Family Medicine 10/01/22 documented as of this encounter
--- OUTSIDE RECORDS SUMMARY | 2024-10-08 00:36 | XMS_ITS | Encounter Summary ---
Author Organization [facility] Address [facility] [place] [address] Care Team Providers Care Kindergarten Tutor Name Role Phone HoErmias Niko LAMBERT Primary Care Provider [phone]- [phone] Reason for Visit * Reason Comments Medication Refill Encounter Details Date Type Department Care Team (Late st Contact Info) Description 01/10/2024 Refill [place] [address] Dontae Quintana MD [facility] HEMATOLOGY/[place] [address] Social History Tobacco Use Types Packs/Day Years Used Date Smoking Tobacco: Former Cigarettes Q uit: 12/27/1988 Smokeless Tobacco: Never Alcohol Use Standard Drinks/Week Comments No 0 (1 standard drink = 0.6 oz pur e alcohol) [facility] Utilities Answer Date Recorded In the past 12 months has [employer] electric, gas, oil, or water company threatened [...] place to sleep or slept in a nursing home (including now)? No 11/10/2023 DH IPV [...] encounter Miscellaneous Notes * Telephone Encounter - Elke Bradshaw CMA - 01/12/2024 1:51 PM EDT Prescription Renewal Request Name: Ervin Helms : 1965 Prescription(s) Requested: Requested Prescriptions Refused Prescriptions Disp Refills spironolactone (Aldactone) 25 mg tablet [Pharmacy Med Name: SPIRONOLACTONE 25 MG TABLET] 15 tablet 1 Sig: TAKE ONE-HALF TABLET BY MOUTH EVERY DAY Rx prescribed for 60 days, rx end date 01/11/2024. Status of request: Refused Allergies Allergen Reactions House Dust Other reaction(s): NASAL CONGESTION Sulfa (Sulfonamide Antibiotics) Other reaction(s): NAUSEA Dust & Pollen Filter Mask [Facial Mask] Elke Bradshaw CMA 01/12/24 1:51 PM documented in this encounter Plan of Treatment Upcoming Encounters Date Type Department Care Team (Late st Contact Info) Description 11/08/2024 3:30 PM EST Office Visit Dermatology at [place] [address] [facility] [place] [address] Prosper Schmidt MD [address] [facility], [place] [address] 12/14/2024 2:40 PM EST Office Visit Cardiology at [address] [place] [address] Benjie Garrison MD [facility] [place] [address] documented as of this encounter Visit Diagnoses Not on filedocumented in this encounter Care Teams Kindergarten Tutor Relationship Specialty Start Date End Date Ermias Teague APRN [address] [place] [address] [address] [facility] 1 [place] [address] PCP - General Family Medicine 10/01/22 documented as of this encounter
--- OUTSIDE RECORDS SUMMARY | 2024-10-08 00:36 | XMS_ITS | Encounter Summary ---
Author Organization [facility] Address [facility] [place] [address] Care Team Providers Care Artificial Log Machine Operator Name Role Phone HoLamaikel Pope APRN Primary Care Provider +1- [phone] Encounter Details Date Type Department Care Team (Late st Contact Info) Description 11/27/2023 Telephone Cardiology at [address] [place] [address] Liz Agrawal, RN Social History Tobacco Use Types Packs/Day Years Used Date Smoking Tobacco: Former Cigarettes Q uit: 12/27/1988 Smokeless Tobacco: Never Alcohol Use Standard Drinks/Week Comments No 0 (1 standard drink = 0.6 oz pur e alcohol) [facility] Utilities Answer Date Recorded In the past 12 months has e [employer], gas, oil, or water [employer] threatened to shut off services in your [...] place to sleep or slept in a mcfp (including now)? No 11/10/2023 IPV Inpatient Questions Answer Date Recorded Does [...] Telephone Encounter - Liz Agrawal RN - 11/27/2023 2:03 PM EST Images from the original note were not included. Cardiology Clinic [address] [place] [address], [place] [address] [facility] Ervin Helms's FIRST appointment with pe teacher Dr. Benjie Garrison will be in 3 weeks: Provider Department 12/17/2023 3:20 PM Benjie Garrison MD [facility] CARDIOLOGY Arrive at: [facility] [address] Appt. Type Appt. Notes NEW PATIENT STEMI 11/08/2022 - cath, thrombectomy, stents x 3 ask PCP for a referral No comment can be provided on the request for physician's statement for [place] [employer] [place] insurance until that appointment. RESPONSE IS REQUESTED by Mare Bhagat, Senior Benefits Pipefitter Welder. [email or web address] documented in this encounter Plan of Treatment Upcoming Encounters Date Type Department Care Team (Late st Contact Info) Description 11/08/2024 3:30 PM EST Office Visit Dermatology at [address] [address] Prosper Schmidt MD [address] [facility], [facility] [place] [address] 12/14/2024 2:40 PM EST Office Visit Cardiology at [address] [address] Benjie Garrison MD [facility] [place] [address] documented as of this encounter Visit Diagnoses Not on filedocumented in this encounter Care Teams Artificial Log Machine Operator Relationship Specialty Start Date End Date Ermias Teague, PETRA [address] [facility] 1 [place] [address] PCP - General Family Medicine 10/01/22 documented as of this encounter
--- OUTSIDE RECORDS SUMMARY | 2024-10-08 00:36 | XMS_ITS | Encounter Summary ---
Author Organization [facility] [place] [address] Care Team Providers Care Dean For Student Affairs Name Role Phone Ermias Teague APRN Primary Care Provider +1- [phone] Reason for Visit * Auth/Cert (Routine) Specialty Diagnoses / Procedures Referred By Zenaida zuniga Referred To Contact Diagnoses STEMI (ST elevation myocardial infarction) STEMI Procedures CARDIAC CATHETERIZATION Mario Fitzpatrick MD [facility] [place] [address] [facility] Referral ID Status Reason Start Date Expiration Date Visits Re quested Visits Authorized [id number] 1 1 Encounter Details Date Type Department Care Team (Latest Contact Info) Description 11/09/2023 7:35 AM EST - 11/09/2023 11:59 PM [facility] Hospital Encounter [place] [address] Discharge Disposition: Home Social History Tobacco Use Types Packs/Day Years Used Date Smoking Tobacco: Former Cigarettes Q uit: 12/27/1988 Smokeless Tobacco: Never Alcohol Use Standard Drinks/Week Comments No 0 (1 standard drink = 0.6 oz pur e alcohol) [facility] Utilities Answer Date Recorded In the past 12 months has [employer], gas, oil, or water company threatened [...] place to sleep or slept in a detention (including now)? No 11/10/2023 DH IPV Inpatient [...] on file documented as of this encounter Medications at Time of Discharge [...] 5 11/03/2023 fluticasone propionate (Flonase) 50 mcg/actuation [place], Suspension 1-2 sprays by Each Nare route daily as needed. 10/15/2015 triamcinolone (Kenalog) 0.1 % Cream Apply to areas of itching twice daily. 80 g 07/17/2021 ilwcjpiu-ndusan-mmp 1-D3-C-srinivasan 750-625-1,000 mg-mg-unit Tablet Take 2 tablets by mouth 2 times daily. JARDIANCE 25 mg Tablet Take 25 mg by mouth daily. 0 01/05/2018 GERRY PEN NEEDLE 32 gauge x 32 NeedleIndications:P soriatic arthritis USE TWICE DAILY 0 [...] subcutaneously daily. 15 mL 3 05/21/2018 12/16/2023 LANTUS SOLOSTAR Insulin Pen Inject 11 Units subcutaneously 2 times daily. 1 03/30/2017 11/11/2023 FREESTYLE LITE STRIPS Strip 1 each 3 times daily. 0 09/02/20142023 documented as of this encounter Plan of Treatment Upcoming Encounters Date Type Department Care Team (Late st Contact Info) Description 11/08/2024 3:30 PM EST Office Visit Dermatology at [place] [address] [place] [address] Prosper Schmidt MD [address] [facility], [facility] A DERMATOLOGY [place], [place] [id number] 12/14/2024 2:40 PM EST Office Visit Cardiology at [address] [address] Benjie Garrison MD [facility] [place] [address] documented as of this encounter Procedures Procedure Name Priority Date/Time Associated Diagnosis Comments ECHO COMPLETE W CONTRAST Routine 11/09/2023 2:[address] elevation myocardial infarction (STEMI), unspecified artery documented in this encounter Visit Diagnoses Not on filedocumented in this encounter Administered Medications Inactive Administered Medications - up to 3 most recent administrations Medication Order MAR Action Action Date Dose Rate Site perflutren protein-A microsphers (Optison) (0.22 mg/mL) injection 1.2 mL 1.2 mL, Intravenous, ONCE PRN, 1 dose, Starting on 11/09/23 at 1446, Until 11/09/23 at 1338, Per Protocol, Routine Given 11/09/2023 1:38 PM EST 1.2 mLs documented in this encounter Care Teams Dean For Student Affairs Relationship Specialty Start Date End Date Ermias Teague, FURNITURE REMOVALIST'S ASSISTANT [address] [place] [address] [place] [address] PCP - General Family Medicine 10/01/22 documented as of this encounter
--- OUTSIDE RECORDS SUMMARY | 2024-10-08 00:36 | XMS_ITS | Encounter Summary ---
Author Organization [facility] Address [facility] [place] [address] Care Team Providers Care Awning Frame Maker Name Role Phone Ermias Teague APRN Primary Care Provider +1- [phone] Reason for Referral * Diagnostic Test (Routine) - Closed Specialty Diagnoses / Procedures Referred By Contac t Referred To Contact Cardiology Diagnoses Cardiomyopathy, ischemic Procedures Echocardiogram Transthoracic Benjie Garrison MD [facility] [place] [address] Referral ID Status Reason Start Date Expiration Date V isits Requested Visits Authorized [id number] Closed Specialty Service Requested 12/17/2023 06/14/2024 1 1 Reason for Visit * Reason Comments Coronary Artery Disease S/p STEMI Cardiomyopathy Establish Care * Consultation (Routine) - Closed Specialty Diagnoses / Procedures Referred By Contac t Referred To Contact Cardiology Diagnoses ST elevation myocardial infarction involving left circumflex coronary artery Dontae Quintana MD [facility] HEMATOLOGY/[place] [address] [facility] Cardiology [address] [place] [id number] Referral ID Status Reason Start Date Expiration Date V isits Requested Visits Authorized [id number] Closed Consult, Test & Treat 11/11/2023 11/10/2024 1 1 Encounter Details Date Type Department Care Team (Latest Contact Info) Description 12/17/2023 3:20 PM EST Office Visit Cardiology at [address] [place] [address] [facility] [place] [address] ASCVD (arteriosclerotic cardiovascular disease); Cardiomyopathy, ischemic Social History Tobacco Use Types Packs/Day Years Used Date Smoking Tobacco: Former Cigarettes Q uit: 12/27/1988 Smokeless Tobacco: Never Alcohol Use Standard Drinks/Week Comments No 0 (1 standard drink = 0.6 oz pur e alcohol) [facility] Utilities Answer Date Recorded In the [...] place to sleep or slept in a usp (including now)? No 11/10/2023 DH IPV Inpatient [...] Sign Reading Time Taken Comments Blood Pressure 118/79 12/17/2023 3:38 PM EST Pulse 102 12/17/2023 3:38 PM EST Temperature - - Respiratory Rate - - Oxygen Saturation - - Inhaled Oxygen Concentration - - Weight 63.5 kg (140 lb) 12/17/2023 3:38 PM EST Height 170.2 cm (5' 7) 12/17/2023 3:38 PM EST Body Mass Index 21.93 12/17/2023 3:38 PM EST documented in this encounter Progress Notes * Benjie Garrison MD - 12/17/2023 3:20 PM EST Images from the original note were not included. CARDIOLOGY NEW OUTPATIENT PRIMARY CARE PROVIDER: Ermias Teague APRN PROBLEM LIST: Patient Active Problem List Diagnosis Cardiomyopathy, ischemic 10/2023 (inferior STEMI): EF 28%, RCA territory akinesis. RV and valves normal ASCVD (arteriosclerotic cardiovascular disease) Cardiac Catheterization: (10/2023) RIGHT dominance Indication: Inferior STEMI, [place] 1, pharmacoinvasive strategy LVEDP 15 Artery Lesion Intervention LM mild LAD Mid 50 LCx Prox 100% Thrombectomy+ 3.5 x 26 [place] RCA Mid THERAPY TECH (cols via LAD) RCA attempted, but unable to cross lesion Anemia, iron deficiency Negative GI work-up. History of Huang's esophagitis- months o f oral iron with minimal improvement. IV VENOFER 12/12 with good results Epidermal cyst Type II or unspecified type diabetes mellitus without mention of complication, uncontrolled GERD (gastroesophageal reflux disease) Verruca vulgaris Psoriasis MEDICATIONS: Current Outpatient Medications Medication Instructions acetaminophen (TYLENOL) 1,000 mg, Oral, EVERY 6 HOURS PRN ascorbic acid (Vitamin C) (VITAMIN C) 500 mg, Oral, DAILY aspirin 81 mg, Oral, DAILY atorvastatin (LIPITOR) 80 mg, Oral, EVERY EVENING benzonatate (Tessalon) 100 mg capsule calcipotriene (Dovonex) 0.005 % Cream Apply twice daily this to psoriasis in genital area clopidogreL (PLAVIX) 75 mg, Oral, DAILY etanercept (EnbreL SureClick) Pen Injector INJECT 1 PEN UNDER THE SKIN EVERY 7 DAYS. fluticasone propionate (Flonase) 50 mcg/actuation [place], Suspension 1-2 sprays, Each Nare, DAILY PRN sernzbjy-tehzum-eae5-D3-C-srinivasan 750-625-1,000 mg-mg-unit Tablet 2 tablets, Oral, 2 TIMES DAILY insulin aspart U-100 (NOVOLOG) 5 Units, Subcutaneous, 3 TIMES DAILY BEFORE MEALS insulin glargine (LANTUS) 22 Units, Subcutaneous, NIGHTLY Jardiance 25 mg, Oral, DAILY loratadine (CLARITIN) 10 mg, Oral, PRN metFORMIN (GLUCOPHAGE) 1,000 mg, Oral, 2 TIMES DAILY metoprolol succinate XL (TOPROL-XL) 50 mg, Oral, DAILY mupirocin (Bactroban) 2 % Ointment Topical (Top), 3 TIMES DAILY GERRY PEN NEEDLE 32 gauge x 5/32 Needle USE TWICE DAILY nitroGLYcerin (NITROSTAT) 0.4 mg, Sublingual, EVERY 5 MIN PRN NOVOFINE 32 32 x 1/4 Needle 1 each, Subcutaneous, 2 TIMES DAILY, Reported on 12/25/2016 omeprazole (PRILOSEC) 20 mg, Oral, 2 TIMES DAILY spironolactone (ALDACTONE) 12.5 mg, Oral, DAILY triamcinolone (Kenalog) 0.1 % Cream Apply to areas of itching twice daily. Subjective: Patient ID: Ervin Helms is a 57 y.o. male. HPI: 57 m presents to establish cardiovascular care. See problem list for succinct details Since discharge, he has been doing well. He feels overall back to normal, without angina nor untoward dyspnea. Participating in cardiac rehab at [facility] without issue. Does not check bp at home. No LH/syncope, no palpitations Objective: Patient Vitals for the past 24 hrs: Pulse BP 12/17/23 1538 (!) 102 118/79 Gen: pleasant male in NAD Cor: rrr, s1/s2 of nl character and amplitude, no pathologic m/r/g. Estimated RAP not elevated. Carotids without bruit. Pulm: CTAB. Normal diaphragmatic movement without use of accessory muscles EKG: nsr 99, inferoposterior infarct TTE: reviewed, as per problem list Assessment and Plan: Cardiomyopathy, ischemic No failure by history nor exam. - Diuresis: none - Cardioprotection: - Beta Blockade: increase toprol to 50 - RAASi: defer (low BP) - MC Blockade: aldactone 12.5 - SGLT2i: jardiance 25 - Devices: pending interval echo- obtain in 3 months ASCVD (arteriosclerotic cardiovascular disease) No angina per history. - Anti-Thrombosis: asa 81, plavix 75. The latter through 10/2024 - Anti- Lipemic: lipitor 80 - Anti- Anginals: GTN PRN, toprol RTC 3 months, shortly after TTE Benjie Garrison MD documented in this encounter Miscellaneous Notes * Assessment & Plan Note - Benjie Garrison MD - 12/17/2023 3:36 PM EST Associated Problem(s): ASCVD (arteriosclerotic cardiovascular disease) No angina per history. - Anti-Thrombosis: asa 81, plavix 75. The latter through 10/2024 - Anti- Lipemic: lipitor 80 - Anti- Anginals: GTN PRN, toprol * Assessment & Plan Note - Benjie Garrison MD - 12/17/2023 3:36 PM EST Associated Problem(s): Cardiomyopathy, ischemic No failure by history nor exam. - Diuresis: none - Cardioprotection: - Beta Blockade: increase toprol to 50 - RAASi: defer (low BP) - MC Blockade: aldactone 12.5 - SGLT2i: jardiance 25 - Devices: pending interval echo- obtain in 3 months documented in this encounter Plan of Treatment Upcoming Encounters Date Type Department Care Team (Late st Contact Info) Description 11/08/2024 3:30 PM EST Office Visit Dermatology at [place] [address] [facility] [place] [address] Prosper Schmidt MD [address] [facility], [place] A DERMATOLOGY [place], [place] [id number] 12/14/2024 2:40 PM EST Office Visit Cardiology at [address] [place] [address] [facility] [place] [address] Scheduled Orders Name Type Priority Associated Diagnoses Order Schedule Echocardiogram Transthoracic Echocardiography Routine Cardiomyopathy, ischemic Expected: 03/16/2024, Expires: 09/15/2024 documented as of this encounter Visit Diagnoses Diagnosis ASCVD (arteriosclerotic cardiovascular disease) Unspecified cardiovascular disease Cardiomyopathy, ischemic Other specified forms of chronic ischemic heart disease documented in this encounter Care Teams Awning Frame Maker Relationship Specialty Start Date End Date Ermias Teague, PETRA [address] [place] [address] [place] [address] PCP - General Family Medicine 10/01/22 documented as of this encounter
--- OUTSIDE RECORDS SUMMARY | 2024-10-08 00:36 | XMS_ITS | Encounter Summary ---
Author Organization [facility] Address [facility] [place] [address] Care Team Providers Care Leather Parts Matcher Name Role Phone HoLamaikel Pope APRN Primary Care Provider +1- [phone] Reason for Visit * Reason Onset Date Comments Referral 11/18/2023 Heart Problem 11/18/2023 Encounter Details Date Type Department Care Team (Late st Contact Info) Description 11/18/2023 Telephone Cardiology at [address] [address] Liz Agrawal, astronomy department chair; Heart Problem Social History Tobacco Use Types Packs/Day Years Used Date Smoking Tobacco: Former Cigarettes Q uit: 12/27/1988 Smokeless Tobacco: Never Alcohol Use Standard Drinks/Week Comments No 0 (1 standard drink = 0.6 oz pur e alcohol) [facility] Utilities Answer Date Recorded In the past 12 months has th e [employer], gas, oil, or water [employer] threatened to shut off services in your [...] in a fci (including now)? No 11/10/2023 IPV Inpatient Questions [...] Telephone Encounter - Liz Agrawal RN - 11/18/2023 3:46 PM EST Ervin was referred to [facility] Dish Technician by the discharging team at [facility] following cardiac cath, thrombectomy, and 3 vessel stent placement for a STEMI diagnosed 11/08/2023. Ervin was discharged to home 11/11/2023. Ervin will follow up with his PCP in another week. On November 08, Ervin had presented to [facility] in [facility] with chest pressure which began on 11/07/2023. He was transferred to [facility] for cardiac cath upon arrival. 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 Ervin asks if he must see the plumber apprentice to be cleared to return to work. That isthe normal pathway to return to work clearance. First available appointment with plumber apprentice is December 17, 3:20 pm, with Dr. Benjie Garrison. If a cancellation presents the opportunity, he will be offered a sooner appointment. Plan: Ervin to continue self-care at home, cardiac rehab services at [facility], and when he has appointment with PCP, this clinic will request Referral to cardiology (for insurance) Copy of office visit note for that appointment. documented in this encounter Plan of Treatment Upcoming Encounters Date Type Department Care Team (Late st Contact Info) Description 11/08/2024 3:30 PM EST Office Visit Dermatology at [address] [address] Prosper Schmidt MD [address] [facility], [facility] [place] [address] 12/14/2024 2:40 PM EST Office Visit Cardiology at [address] [address] Benjie Garrison MD [facility] [place] [address] documented as of this encounter Visit Diagnoses Not on filedocumented in this encounter Care Teams Leather Parts Matcher Relationship Specialty Start Date End Date Ermias Teague APRN [address] [facility] 1 [place] [address] PCP - General Family Medicine 10/01/22 documented as of this encounter
--- OUTSIDE RECORDS SUMMARY | 2024-10-08 00:37 | XMS_ITS | Encounter Summary ---
Author Organization [facility] [place] [address] Care Team Providers Care Distribution Center Assistant Name Role Phone Ermias Teague APRN Primary Care Provider +1- [phone] Reason for Visit * Reason Comments Medication Refill Encounter Details Date Type Department Care Team (Late Contact Info) Description 11/06/2023 Refill Dermatology at [address] [address] Prosper Schmidt MD [address] [place] [address], [facility] [place] [address] Psoriatic arthritis Social History Tobacco Use Types Packs/Day Years Used Date Smoking Tobacco: Former Cigarettes Q uit: 12/27/1988 Smokeless Tobacco: Never Alcohol Use Standard Drinks/Week Comments No 0 (1 standard drink = 0.6 oz pur e alcohol) Sex and Gender Information Value Date Recorded Sex Assigned at Not on file Gender Identity Not on file Sexual Orientation Not on file documented as of this encounter Plan of Treatment Upcoming Encounters Date Type Department Care Team (Late Contact Info) Description 11/08/2024 3:30 PM EST Office Visit Dermatology at [address] [address] Prosper Schmidt MD [address] [place] [address], [facility] [place] [address] 12/14/2024 2:40 PM EST Office Visit Cardiology at [address] [place] [address] Benjie Garrison MD [facility] [place] [address] documented as of this encounter Visit Diagnoses Diagnosis Psoriatic arthritis Psoriatic arthropathy documented in this encounter Care Teams Distribution Center Assistant Relationship Specialty Start Date End Date Ermias Teague, JEWELRY MANAGER [address] [place] [address] PCP - General Family Medicine 10/01/22 documented as of this encounter
--- OUTSIDE RECORDS SUMMARY | 2024-10-08 00:37 | XMS_ITS | Encounter Summary ---
Author Organization [facility] [place] [address] Care Team Providers Care Clerk To Justice Name Role Phone HoErmias Niko LAMBERT Primary Care Provider +1- [phone] Reason for Visit * Reason Comments Psoriasis Encounter Details Date Type Department Care Team (Late st Contact Info) Description 11/03/2023 11:30 AM EST Office Visit Dermatology at [address] [address] Prosper Schmidt MD [address] [place] [address], [facility] [place] [address] Psoriatic arthritis; Psoriasis Social History Tobacco Use Types Packs/Day Years Used Date Smoking Tobacco: Former Cigarettes Q uit: 12/27/1988 Smokeless Tobacco: Never Alcohol Use Standard Drinks/Week Comments No 0 (1 standard drink = 0.6 oz pur e alcohol) Sex and Gender Information Value Date Recorded Sex Assigned at Not on file Gender Identity Not on file Sexual Orientation Not on file documented as of this encounter Progress Notes * Prosper Schmidt MD - 11/03/2023 11:30 AM EST Problem: 1. Psoriasis and psoriatic arthritis on Enbrel since November 2017 doing very well 2. Previously on methotrexate November 2015 through December 2017 3. Probable scabies treated September 2020 4. Utilizing calcipotriene cream intermittently for groin/inverse involvement of his psoriasis Ervin follows up and has been doing well. The Enbrel continues to work very well for him. His psoriasis remains clear. He also requested a refill of his calcipotriene cream which he uses intermittently in the groin area on the scrotum and inguinal folds Physical examination reveals a pleasant 57-year-old gentleman whose psoriasis is clear on the elbows the knees. He has no stigmata of psoriasis. Assessment plan: Psoriasis, controlled with Enbrel 1. Continue Enbrel injecting the 50 mg autoinjector pen once subcutaneously every week. Will dispense 4 with 11 refills for 1 year supply 2. Continue calcipotriene cream applying twice daily this to psoriasis in genital area. Dispense 60g with 5 refills. 2. Return to clinic in 1 year for repeat check CC: Ermias Teague APRN documented in this encounter Plan of Treatment Upcoming Encounters Date Type Department Care Team (Late st Contact Info) Description 11/08/2024 3:30 PM EST Office Visit Dermatology at [address] [phone] Prosper Schmidt MD [address] [place] [address], [facility] [place] [address] 12/14/2024 2:40 PM EST Office Visit Cardiology at [address] [phone] Benjie Garrison MD [facility] [place] [address] documented as of this encounter Visit Diagnoses Diagnosis Psoriatic arthritis Psoriatic arthropathy Psoriasis Other psoriasis documented in this encounter Care Teams Clerk To Justice Relationship Specialty Start Date End Date Ermias Teague APRN [address] [facility] 1 [place] [address] PCP - General Family Medicine 10/01/22 documented as of this encounter
--- OUTSIDE RECORDS SUMMARY | 2024-10-08 00:37 | XMS_ITS | Encounter Summary ---
[place] [address] Care Team Providers Care Sap Solutions Architect Name Role Phone Stephon Maciej ORTIZ Primary Care Provider Encounter Details Date Type Department Care Team (Late st Contact Info) Description 05/10/2021 Telephone [place] [phone] Ry Pelaez, RN Social History Tobacco Use Types Packs/Day [...] encounter Miscellaneous Notes * Telephone Encounter - Gwen Mitchell RN - 05/17/2021 11:48 AM EDT Received Voicemail from pt. Saying he received a message from a ilir Larry(?) requesting information on his ComplyMD chepe. He states he needs an anaylsis from Dr. Greenberg' interpretation of the CGM readings. Previous documentation sent was inadequate. Ilir's phone number: * Telephone Encounter - Gwen Mitchell RN - 05/15/2021 3:22 PM EDT Received a voicemail from Min in regards to receive information regarding the CGM trial. Appears like this was already sent, same return phone number. Call attempted, no message left on unidentified voicemail. Electronically routed CGM trial interpretation from chart, included cover sheet asking them to let us know if they needed something more specific. * Telephone Encounter - Ry Pelaez RN - 05/10/2021 11:46 AM EDT Received voicemail from pharmacist at [facility]. He is trying to help the patient get a Freestyle Chepe. He says he needs the office notes from patient's visit with Chel as well as her interpretation of the CGM results. This is in Chel's note. Electronically routed notes to [facility]. documented in this encounter Plan of Treatment Upcoming Encounters Date Type Department Care Team (Late st Contact Info) Description 11/08/2024 3:30 PM EST Office Visit Dermatology at [address] [phone] Prosper Schmidt MD [address] [place] [address], [facility] [place] [address] 12/14/2024 2:40 PM EST Office Visit Cardiology at [address] [place] [address] Benjie Garrison MD [facility] [place] [address] documented as of this encounter Visit Diagnoses Not on filedocumented in this encounter Care Teams Sap Solutions Architect Relationship Specialty Start Date End Date Maciej Szymanski DO [address] [place] [address] PCP - General 09/18/10 09/30/22 documented as of this encounter
--- OUTSIDE RECORDS SUMMARY | 2024-10-08 00:37 | XMS_ITS | Encounter Summary ---
Author Organization [facility] Address [facility] [place] [address] Care Team Providers Care Poultry Hatchery Manager Name Role Phone Ermias Teague APRN Primary Care Provider +1- [phone] Encounter Details Date Type Department Care Team (Late st Contact Info) Description 11/03/2023 Refill Dermatology at [address] [phone] Chel Jara RN Social History Tobacco Use Types Packs/Day [...] 3:30 PM EST Office Visit Dermatology at [address] [phone] Prosper Schmidt MD [address] [place] [address], [facility] DERMATOLOGY [place], [place] [id number] 12/14/2024 2:40 PM EST Office Visit Cardiology at [address] [phone] Benjie Garrison MD [facility] [place] [address] documented as of this encounter Visit Diagnoses Not on filedocumented in this encounter Care Teams Poultry Hatchery Manager Relationship Specialty Start Date End Date Ermias Teague APRN [address] [place] [address] PCP - General Family Medicine 10/01/22 documented as of this encounter
--- OUTSIDE RECORDS SUMMARY | 2024-10-08 00:37 | XMS_ITS | Encounter Summary ---
Author Organization [facility] [place] [address] Care Team Providers Care Medical Receptionist Name Role Phone HoErmias PETRA Primary Care Provider +1- [phone] Encounter Details Date Type Department Care Team (Late st Contact Info) Description 11/08/2023 [place] [address] Benjie Espinosa MD [facility] [place] [address] Social History Tobacco Use Types Packs/Day Years Used Date Smoking Tobacco: Former Cigarettes Q uit: 12/27/1988 Smokeless Tobacco: Never Alcohol Use Standard Drinks/Week Comments No 0 (1 standard drink = 0.6 oz pur e alcohol) IPV Inpatient Questions Answer Date Recorded Does [...] encounter Miscellaneous Notes * Telephone Encounter - Benjie Espinosa MD - 11/08/2023 3:25 PM EST Telephone Triage Note: STEMI 11/08/2023 Ervin Helms Initial Contact Date: 11/08/2023 Initial contact time: 3:25 PM Referring Provider: Dr. Yi Patient Location: [facility] Contacted by OSH ED for cardiology consultation. History taking and objective data are per the OSH ED provider/staff member. History Of Present Illness: Ervin Helms is a 57 y.o. male with PMH of DM2, smoker, with psoriatic arthritis who presented to the above location with chest pressure that started yesterday. His symptoms never got better so he arrived today to the ER. Has not received nitro. Not in significant pain and no n/v diaphoresis. Vital Signs at OSH 36.8 102 16 138/86 100%RA Physical Exam Significant For No murmurs Pertinent Diagnostic Findings: Scanned EKG demonstrates inferior ST elevations with reciprocal anterior depressions. Labs: -CBC: Hgb 12.2, Plt 403, WBC normal -No other labs OSH Interventions: None Assessment: Given above history, presentation, and data, this episode most likely represents inferior STEMI. Patients symptoms presented >12 hrs ago but he is not q'd out on ECG. Given his young age, lack of any contraindications for lytics, and unclear transport at this time ([facility] is not available by ground or by air and OSH has to arrange transport) will give full dose lytics at this time. Plan: -35mg TNK (he weighs 64 kg) -300mg plavix -Aspirin/heparin -Transfer to tutorial laboratory supervisor -ECG post lytics Above recommendations were based on my discussion with covering provider; I have not personally interviewed or examined this patient. Advised to call the transfer center back with any changes in the patient condition. Benjie Espinosa Building Cleaner [id number] documented in this encounter Plan of Treatment Upcoming Encounters Date Type Department Care Team (Late st Contact Info) Description 11/08/2024 3:30 PM EST Office Visit Dermatology at [place] [address] [place] [phone] Prosper Schmidt MD [address], [place] [address] 12/14/2024 2:40 PM EST Office Visit Cardiology at [address] [place] [address] Benjie Garrison MD [facility] [place] [address] documented as of this encounter Visit Diagnoses Not on filedocumented in this encounter Care Teams Medical Receptionist Relationship Specialty Start Date End Date Ermias Teague APRN [address] [place] [address] PCP - General Family Medicine 10/01/22 documented as of this encounter
--- OUTSIDE RECORDS SUMMARY | 2024-10-08 00:37 | XMS_ITS | Encounter Summary ---
Author Organization [facility] Address [facility] [place] [address] Care Team Providers Care Oyster Bed Worker Name Role Phone StephonMaciej hunter Primary Care Provider Encounter Details Date Type Department Care Team (Late st Contact Info) Description 05/01/2020 Refill Dermatology at [address] [phone] Daisy Keita LPN Social History Tobacco Use Types Packs/Day Years [...] 3:30 PM EST Office Visit Dermatology at [address] [phone] Prosper Schmidt MD [address] [place] [address], [facility] DERMATOLOGY [place], [place] [id number] 12/14/2024 2:40 PM EST Office Visit Cardiology at [address] [phone] Benjie Garrison MD [facility] [place] [address] documented as of this encounter Visit Diagnoses Not on filedocumented in this encounter Care Teams Oyster Bed Worker Relationship Specialty Start Date End Date Maciej Szymanski DO [address] [place] [address] PCP - General 09/18/10 09/30/22 documented as of this encounter
--- OUTSIDE RECORDS SUMMARY | 2024-10-08 00:37 | XMS_ITS | Encounter Summary ---
Author Organization [facility] [place] [address] Care Team Providers Care Melter Supervisor Electric Arc Furnace Name Role Phone Stephon Maciej ORTIZ Primary Care Provider Reason for Visit * Reason Comments Medication Refill Encounter Details Date Type Department Care Team (Late Contact Info) Description 07/16/2021 Refill Dermatology at [address] [phone] Prosper Schmidt MD [address] [place] [address], [place] [address] Psoriatic arthritis Social History Tobacco Use Types [...] PM EST Office Visit Dermatology at [address] [phone] Prosper Schmidt MD [address] [place] [address], [place] [address] 12/14/2024 2:40 PM EST Office Visit Cardiology at [address] [place] [address] Benjie Garrison MD [facility] [place] [address] documented as of this encounter Visit Diagnoses Diagnosis Psoriatic arthritis Psoriatic arthropathy documented in this encounter Care Teams Melter Supervisor Electric Arc Furnace Relationship Specialty Start Date End Date Maciej Szymanski DO [address] [place] [address] PCP - General 09/18/10 09/30/22 documented as of this encounter
--- OUTSIDE RECORDS SUMMARY | 2024-10-08 00:37 | XMS_ITS | Encounter Summary ---
Author Organization [facility] Address [facility] [place] [address] Care Team Providers Care Premium Card Cancellation Clerk Name Role Phone Ermias Teague APRN Primary Care Provider +1- [phone] Encounter Details Date Type Department Care Team (Late st Contact Info) Description 10/01/2022 Refill Dermatology at [address] [phone] Daisy Keita LPN Psoriatic arthritis Social History Tobacco Use Types [...] 3:30 PM EST Office Visit Dermatology at [address] [phone] Prosper Schmidt MD [address] [place] [address], [place], [place] [id number] 12/14/2024 2:40 PM EST Office Visit Cardiology at [address] [phone] Benjie Garrison MD [facility] [place] [address] documented as of this encounter Visit Diagnoses Diagnosis Psoriatic arthritis Psoriatic arthropathy documented in this encounter Care Teams Premium Card Cancellation Clerk Relationship Specialty Start Date End Date Ermias Teague APRN [address] [place] [address] PCP - General Family Medicine 10/01/22 documented as of this encounter
--- OUTSIDE RECORDS SUMMARY | 2024-10-08 00:37 | XMS_ITS | Encounter Summary ---
Author Organization [facility] [place] [address] Care Team Providers Care Ceramics Teacher Name Role Phone Stephon Maciej ORTIZ Primary Care Provider Reason for Visit * Reason Comments Medication Refill Encounter Details Date Type Department Care Team (Late Contact Info) Description 06/25/2021 Refill Dermatology at [address] [phone] Prosper Schmidt MD [address] [place] [address], [place] [address] Psoriatic arthritis Social History Tobacco Use Types [...] 3:30 PM EST Office Visit Dermatology at [address] [phone] Prosper Schmidt MD [address] [place] [address], [place] [address] 12/14/2024 2:40 PM EST Office Visit Cardiology at [address] [place] [address] Benjie Garrison MD [facility] [place] [address] documented as of this encounter Visit Diagnoses Diagnosis Psoriatic arthritis Psoriatic arthropathy documented in this encounter Care Teams Ceramics Teacher Relationship Specialty Start Date End Date Maciej Szymanski DO [address] [place] [address] PCP - General 09/18/10 09/30/22 documented as of this encounter
--- OUTSIDE RECORDS SUMMARY | 2024-10-08 00:37 | XMS_ITS | Encounter Summary ---
Author Organization Formerly [facility] Address [facility] [place] [address] Care Team Providers Care Change Lead Name Role Phone Maciej Szymanski DO Primary Care Provider Encounter Details Date Type Department Care Team (Late st Contact Info) Description 10/11/2019 2:30 PM EST Office Visit Endocrinology at [facility] [place] [address] Dinora Martin APRN [facility] [place] [address] Uncontrolled type 2 diabetes mellitus with hyperglycemia, with long-term current use of insulin Social History Tobacco Use Types Packs/Day Years [...] Sign Reading Time Taken Comments Blood Pressure 147/127 10/11/2019 2:46 PM EST Pulse 102 10/11/2019 2:46 PM EST Temperature - - Respiratory Rate - - Oxygen Saturation 99% 10/11/2019 2:46 PM EST Inhaled Oxygen Concentration - - Weight 63.5 kg (140 lb) 10/11/2019 2:46 PM EST Height 170.2 cm (5' 7) 10/11/2019 2:46 PM EST Body Mass Index 21.93 10/11/2019 2:46 PM EST documented in this encounter Patient Instructions * Patient Instructions* Dinora Martin APRN - 10/11/2019 2:30 PM EST Take the novolog pre meal using an insulin to carb ratio of 1 :15 Reduce the long acting lantus to 10 units at bedtime with addition of novolog at mealtime Chepe [place] continuous glucose monitor Check out krystle called Larisa nogueira Oma for eye exam Treatment of Low Blood Sugar (Hypoglycemia) If your BG is lower than 80, you are likely to feel shaky, sweaty and lightheaded. This is a signalthat your body needs more sugar. Quickly eat or drink a small serving of something sweet, such as: 4 ounces fruit juice or regular (not diet) soda 6 lifesavers small box of raisins 4 glucose tablets (~15 gm of glucose) If your BG is very low <50, you can double the amount above or take 30 gm of glucose gel/tablets. Sit and rest and you should feel better within a few minutes. Once you are feeling better, try to determine why your BG was so low. Common causes of hypoglycemia include skipping a meal, lots of exercise, too much insulin or any combination of these things. Understanding the cause my help you to avoid another low BG in the future. Call your doctor for blood sugars less than 80 or greater than 300 twice in one day to have your insulin doses adjusted. F/U 6 months PETRA Diaz documented in this encounter Progress Notes * Dinora Martin APRN - 10/11/2019 2:30 PM EST Endocrine Clinic Follow Up Name: Ervin Helms : 1965 Date: 10/11/2019 PCP: Maciej Szymanski DO Reason for visit: Follow-up diabetes Brief History Follow-up type 2 DM in fair control. Recently found hiatal hernia, and Barretts esophagus Glucose log review fastings elevated No intercurrent illness Using insulin with high carb meal, 2 -3 units Hypo/hyperglycemia- Occasionally has glucose levels as low as the 50s and 60s and occasionally higher than 200 ?? Complications: None Plan from prior office note Cynthia New APRN DM type 2 in fair control. HGBA1c was 8.2%. Advised patient to add a low dose of bolus insulin 1-2 units before evening meal when glucose levels are 180 before the meal or when he knows he is going to eat a higher carb meal. Reviewed prevention and treatment of hypoglycemia. SBGM: 3 times a day return to office in [address] Britton. Will check hemoglobin A1c and other labs that he is duefor. This was a 34 minute office visit with 27 minutes spent counseling [id number] with patient in the management of glucose levels and adding bolus insulin before evening meal when glucose levels are elevated Diabetes Diagnosis date: 12 yrs Diabetes treatment regimen: Lantus SoloSTAR pen 11 units twice a day. Novolag 2-3 units pre meal ( high carb meal ) Glipizide 5 mg 2 tablets in morning , 1 at night metformin 1000 mg twice a day, jardiance 25 mg daily Most recent HA1c: 10.6 % ( Aug 2019 BG testing 4 times day Hypoglycemia episodes : Once month Warning signs:YES Frequency self treated episodes:once month Frequency episodes needing assistance:NONE BG testing > than if having hypoglycemia occurrances Patient has seen a Clock Smith:NO 24 hr Dietary recall: Counts carbs NO Breakfast- cereal milk Lunch - varies, sandwich and chips fruit , dessert Dinner -varies meat and veggies or pizza , burger mirlande occasionally Snacks- fruit , apple , banana, fresh peaches or plum Exercise Preferred exercise and frequency- work is exercise, but is going back to gym Smoking: NO Diabetes preventative services Last eye evaluation: Gets Annual 2019 Last urine protein measurement: Um:cr ( not calc in 2018 Last Kidney function: sCr ( 1.33 in 2017 Cholesterol panel : LDL ( 89 in 2018 Regular Podiatry visits- NO Special shoes- NO Flu vaccine UTD Pneumovax and Prevnar updateUTD Kidney protection Using NICKY-I or ARB - No Blood pressure- recheck 130 /70 Heart Protection Using low dose ASA-NO Using cholesterol lowering medication ( statin) -NO Dental visits regular- YES PMH Patient Active Problem List Diagnosis Code ??? Psoriasis L40.9 ??? Verruca vulgaris B07.8 ??? Type II or unspecified type diabetes mellitus without mention of complication, uncontrolled E11.65 ??? GERD (gastroesophageal reflux disease) K21.9 ??? Epidermal cyst L72.0 ??? Visit for suture removal Z48.02 ??? Anemia, iron deficiency D50.9 Allergies Allergies Allergen Reactions ? ? Dust & Pollen Filter Mask [Facial Mask] ??? Sulfa (Sulfonamide Antibiotics) Family History Family History Problem Relation Age of Onset ??? Cancer Mother ??? Heart Disease Brother Social History Social History Socioeconomic History ??? Marital status: Spouse name: Not on file ??? Number of children: Not on file ??? Years of education: Not on file ??? Highest education level: Not on file Occupational History ??? Not on file Social Needs ??? Financial resource strain: Not on file ??? Food insecurity: Worry: Not on file Inability: Not on file ??? Transportation needs: Medical: Not on file Non-medical: Not on file Tobacco Use ??? Smoking status: Former Smoker Types: Cigarettes Last attempt to quit: 12/27/1988 Years since quittin.8 ??? Smokeless tobacco: Never Used Substance and Sexual Activity ??? Alcohol use: No ??? Drug use: No ??? Sexual activity: Not on file Lifestyle ??? Physical activity: Days per week: Not on file Minutes per session: Not on file ??? Stress: Not on file Relationships ??? Social connections: Talks on phone: Not on file Gets together: Not on file Attends mandaen service: Not on file Active member of club or organization: Not on file Attends meetings of clubs or organizations: Not on file Relationship status: Not on file ??? Intimate partner violence: Fear of current or ex partner: Not on file Emotionally abused: Not on file Physically abused: Not on file Forced sexual activity: Not on file Other Topics Concern ??? Not on file Social History Narrative ??? Not on file MEDS Medications 10/11/19 1450 Medication Sig Taking? FLUCELVAX QUAD 5936-0444, PF, 60 mcg (15 mcg x 4)/0.5 mL Syringe ADM 0.5ML IM UTD Yes rzeaxmjq-fsclao-sbr3-D3-C-srinivasan 750-625-1,000 mg-mg-unit Tablet Take by mouth. Yes etanercept (ENBREL SURECLICK) Pen Injector Inject one sureclick pen (50 mg) subcutaneously once a week Yes insulin aspart U-100 (NOVOLOG FLEXPEN U-100 INSULIN) Insulin Pen Inject 2-5 Units subcutaneously daily. Yes JARDIANCE 25 mg Tablet Take 25 mg by mouth daily. Yes GERRY PEN NEEDLE 32 gauge x 5/32 Needle USE TWICE DAILY Yes LANTUS SOLOSTAR Insulin Pen Inject 11 Units subcutaneously 2 times daily. Yes glipiZIDE (GLUCOTROL) 5 mg Tablet Take 10 mg by mouth 2 times daily. 10mg AM and 5MG night Yes meloxicam (MOBIC) 15 mg Tablet Take 15 mg by mouth daily. Yes metFORMIN (GLUCOPHAGE) 1,000 mg Tablet Take 1,000 mg by mouth 2 times daily. Yes FREESTYLE LITE STRIPS Strip 1 each 3 times daily. Yes NOVOFINE 32 32 x 1/4 Needle Inject 1 each subcutaneously 2 times daily. Reported on 12/25/2016 Yes triamcinolone (KENALOG) 0.1 % cream as needed. Reported on 12/25/2016 Yes ascorbic acid (VITAMIN C) 250 mg tablet Take 250 mg by mouth 2 times daily. Yes loratadine (CLARITIN) 10 mg tablet Take 10 mg by mouth as needed. Yes omeprazole (PRILOSEC) 20 mg capsule Take 1 capsule by mouth 2 times daily. Yes ROS: Constitutional: NO weight change Endocrine: No increased thirst or urination Eyes: No recent vision change ENT: No dysphagia, or dental issues Cardiovascular: No chest pain Respiratory: No wheezing , shortness of breath GI: No nausea, vomiting, chronic diarrhea, - constipation : No polyuria or frequent urinary tract infections Neurological: No weakness or numbness Extremities:++ rash toes bilateral Physical exam Vitals Office Visit from 10/11/2019 in Endocrinology at [facility] [place] Weight 63.5 kg (140 lb) Height 170.2 cm (5' 7) BSA (Calculated - sq m) 1.73 sq meters BMI (Calculated) 21.92 Appearance: pleasant, NAD, AAOx3, speaking in full sentences Skin: Intact, no acanthosis nigricans, no rashes, no hyperpigmentation HEENT: PERRLA, EOMI, no retinopathy with green light exam ENT: moist oral mucosa Neck: no thyromegaly or lymphadenopathy Neuro: no weakness Psych: Mood /Affect appropriate, good insight into disease process Foot exam : No foot ulcer, sensation intact per 10 g of pressure monofilament testing bilateral feet, red, flat pruritic rash on bilateral toes, skin intact HA1c - recent in PCP at [facility] 10.6 % Assessment/Plan: DM Type 2) Ervin Helms is a 53 yr old male with Type 2 DM in less than optimal control , recent HA1c at PCP office 10.6 % . Ervin reports recent improvements in diet and compliance with additional meal associated insulin with 1 meal a day . He is interested in [employer] which could benefit himand assist him with lowering HA1c and viewing glucose trends. Occasional lows none requiring assistance , carries hypoglycemia treatment at all times. Discussed continued meal coverage to improve overall control , patient is willing to add this in on a daily basis with additional post meal BG testing Insulin - Novolog 2-3 units with dinner or lunch , using insulin to carb ratio of 1:15, adjust basal ( lantus down 1-2 units when taking additional meal associated insulin at dinnertime I am recommending this patient get a Chepe CGM for personal use. Pt has MVP for insurance Patient is on Multiple Daily Injections: Diagnosis: Diabetes Mellitus Patient performs SMBG at least 4x per day Patient administers 3 or more insulin injections per day Patient frequently adjusts meal time insulin doses Patient needs a therapeutic CGM I plan to see this pt every 6 months following this initial prescription of the CGM to assess adherence to their CGM regimen and diabetes treatment plan. --Medication: -- Lantus SoloSTAR pen 11 units twice a day. ( take 10 units with the additional meal associated dosing in the evening) --Novolog 2-3 units pre dinner ( BG >180- 2 units) --Glipizide 5 mg 2 tablets twice a day, --metformin 1000 mg twice a day --jardiance 25 mg daily --Monitoring: to check FSBG before each meal and at bedtime. Target FBG 100-140 pre-meal during daytime 100-150 1-2 h post meal below 180. Target A1c < 7% for this patient. --Patient will keep log of blood glucose and insulin used for review at next visit. --Diet and exercise: low fat/controlled carb diet & exercise as tolerated to keep weight stable. -- Lab:at [facility] Aug 2019 -- RTC: Next visit in 3 months. (Quick draw lab before visit with us on the same day). I have reviewed our plan outlined above with the patient and the patient verbalized understanding. All questions were answered and most of the time was spent on counseling about medication adjustmentand proper use of insulin, diet, exercise, cardiac risk prophylaxis, the diagnostic and therapeuticdecisions, and coordination of care. This was a 45 min visit with 35 min.spent counseling face to face with patient regarding above conditions Dionra Martin APRN , BIOLOGY SPECIMEN TECHNICIAN-C Endocrinology CC: Maciej Szymanski DO documented in this encounter Plan of Treatment Upcoming Encounters Date Type Department Care Team (Late st Contact Info) Description 11/08/2024 3:30 PM EST Office Visit Dermatology at [address] [phone] Prosper Schmidt MD [address] [place] [address], [facility] [place] [address] 12/14/2024 2:40 PM EST Office Visit Cardiology at [address] [phone] Benjie Garrison MD [facility] [place] [address] documented as of this encounter Visit Diagnoses Diagnosis Uncontrolled type 2 diabetes mellitus with hyperglycemia, with long-term current use of insulin documented in this encounter Care Teams Change Lead Relationship Specialty Start Date End Date Maciej Szymanski DO [address] [place] [address] PCP - General 09/18/10 09/30/22 documented as of this encounter
--- OUTSIDE RECORDS SUMMARY | 2024-10-08 00:37 | XMS_ITS | Encounter Summary ---
Author Organization [facility] Address [facility] [place] [address] Care Team Providers Care School Bus Driver/Teacher Assistant Name Role Phone Maciej Szymanski DO Primary Care Provider Encounter Details Date Type Department Care Team (Late st Contact Info) Description 05/04/2021 10:15 AM EDT Office [place] [phone] Chel Greenberg PA [facility] [place] [address] Uncontrolled type 2 diabetes mellitus with hyperglycemia, [...] Sign Reading Time Taken Comments Blood Pressure 116/72 05/04/2021 10:25 AM EDT Pulse 100 05/04/2021 10:25 AM EDT Temperature 36.1 ??C (97 ??F) 05/04/2021 10:25 AM EDT Respiratory Rate - - Oxygen Saturation 100% 05/04/2021 10:25 AM EDT Inhaled Oxygen Concentration - - Weight 60.6 kg (133 lb 9.6 oz) 05/04/2021 10:25 AM EDT Height 170.2 cm (5' 7) 05/04/2021 10:25 AM EDT Body Mass Index 20.92 05/04/2021 10:25 AM EDT documented in this encounter Patient Instructions * Patient Instructions* Chel Greenberg PA - 05/04/2021 10:15 AM EDT 1. I will include interpretation of 03/14/21-03/27/21 CGM data in today's visit, we discussed the results including elevated blood sugars late morning and mid- afternoon. Report provided. 2. Will await insurance approval of CGM and follow appeal process if they deny coverage. 3. Monitor your mealtime dosing of Novolog--check blood sugar 2 hours after eating, goal is <180. If it's higher than 180 then consider increasing dose by 1 unit. 4. Follow up in 3mo, sooner as needed. documented in this encounter Progress Notes * Chel Greenebrg PA - 05/04/2021 10:15 AM EDT Diabetes Visit Note Name: Ervin Helms : 1965 PCP: Maciej Szymanski DO Date of visit: 05/04/21 Reason for visit: Ervin Helms is a 55 y.o. male with Diabetes TYPE 2 here for follow up to the [facility] endocrine clinic for diabetes services. Past medical history significant for psoriasis/psoriatic arthritis, GERD & iron deficiency anemia. Patient was last seen in this clinic 3months ago. Plan from previous visit with IDALIA Valenzuela on 02/09/21: 1. Labs today to check for type 1 diabetes. This will help guide treatment. 2. Keep insulin dosing the same for now. 3. Schedule appt with your fixed assets accountant to discuss Chepe results. 4. Test more frequently--aim for fasting morning, before all meals and then 2 hours after eating, plus if you feel any symptoms of highs or lows. 5. Follow up appt in 3mo, sooner as needed. Interim history: Pt says that the Chepe is helping him significantly although is having insurance issues with coverage. Needs interpretation of Chepe report to send to insurance company. Says that waltsn't forget meds very often-- works nights and takes meds with him to work. Adjusts Novolog based on BG readings and carb count, typically 2-3 units TID. Diabetes Diagnosis Date: diagnosed at about age 41yo Last 3 Hemoglobin A1Cs 09/07/19--10.6%, 05/19/20--9.6%, 01/12/21--8.6% Lab Results Component Value Date HA1C 8.4 (H) 02/09/2021 HA1C 8.2 (H) 05/21/2018 HA1C 8.5 (H) 01/20/2018 Current outpatient diabetes regimen: Oral medications: Metformin 1000mg BID, glipizide 10mg in AM plus 5mg in PM, Jardiance 25mg/day Injectable medications (non-insulin): none Basal insulin: Lantus 13 units in AM 12 units in PM Bolus (meal and correction) insulin: Novolog--eats 2-3 units pre-meal for high carb meal or high blood sugar, gives correction. 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 Glucose Monitoring: Meter type: Relion and Chepe Number of Prescribed checks per day: 4x daily Number of checks completed: multiple times daily with Chepe, at least 4x Reason for needing more than 3 checks daily: prevent severe hypoglycemia and severe hyperglycemia, wide fluctuation in numbers, overnight low glucose. Meter uploaded today: yes Logbook brought to visit today: no Average Blood sugar: 164 on report 03/14/21-03/27/21 Duration of need: lifetime Continuous glucose monitor: yes--Chepe I am recommending this patient continue with a Chepe CGM for personal use. Patient is on Daily insulin injections Diagnosis: Diabetes Mellitus type 2 Patient performs SMBG 4x per day Patient administers 4-5 or more insulin injections per day Patient frequently adjusts insulin doses Patient needs a therapeutic CGM This will allow my patient to treat their diabetes and prevent the need for hospitalization for diabetes care. I plan to see this pt every 6 months following this prescription of the CGM to assess adherence to their CGM regimen and diabetes treatment plan. Hypoglycemia: Awareness: Yes Warning signs: lightheaded, sweating, shaking Severe hypoglycemia in the past: no. Most recent event: Early this morning, was 69 and able to self treat Hyperglycemia History of DKA: no. Prescriber information: Chel Greenberg PA-C Diabetes education: Met with personal development educator/fixed assets accountant? yes through PCP office. History of Diabetes Related Complications and Prevention Eyes: Last Eye Exam: no, due for appt History of Diabetes Retinopathy: no Dental Care in last 6 months: yes Kidney function: Last urine microalbumin: 05/21/18--AC ratio not calculated Last creatinine: 02/09/21--1.23 mg/dL On NICKY/ARB: no Cardio: Aspirin: no Last cholesterol: 02/09/21--LDL 95 mg/dL Cholesterol medication: none Feet: History of Neuropathy: no Flu Vaccination: yes Pneumonia vaccine: yes COVID vaccine: completed series Smoker/tobacco use: Non-smoker Allergies: Allergies Allergen Reactions ? ? Dust & Pollen Filter Mask [Facial Mask] ??? Sulfa (Sulfonamide Antibiotics) PMH Past Medical History: Diagnosis Date ??? 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 . 2 adopted children, 5 grandchildren. Non-smoker. Family history: Family History Problem Relation Age of Onset ??? Cancer Mother ??? Heart Disease Brother ROS: Constitutional: Denies fever, fatigue, recent weight gain/loss Endocrine: Denies increased thirst or urination HEENT: Denies recent vision changes, dental issues Cardiovascular: Denies recent chest pain, heart palpitations Respiratory: Denies shortness of breath at rest GI: Denies diarrhea, constipation : Denies frequent/recent urinary tract infections Neurological: Denies headaches, dizziness Skin/Feet: Denies current diabetic foot ulcers Physical Exam: BP 116/72 Pulse 100 Temp 36.1 ??C (97 ??F) (Temporal) Ht 170.2 cm (5' 7) Wt 60.6 kg (133 lb 9.6 oz) SpO2 100% BMI 20.92 kg/m?? General appearance: Alert and cooperative. No acute distress. Thin. Heart: RRR, no murmurs Lower extremities: no foot ulcer, no cyanosis or edema, pedal pulses 2+, monofilament testing on feet within normal limits, mycotic nails. Neuro: Normal gait Labs: See above. Medications: Medications 05/04/21 1026 Medication Sig Taking? triamcinolone (KENALOG) 0.1 % Cream Apply to areas of itching twice daily. Yes yiixuthr-oflksx-auj7-D3-C-srinivasan 750-625-1,000 mg-mg-unit Tablet Take by mouth. Yes [...] 2 times daily. Reported on 12/25/2016 Yes ascorbic acid (VITAMIN C) 250 mg tablet Take 500 mg by mouth daily. Yes loratadine (CLARITIN) 10 mg tablet Take 10 mg by mouth as needed. Yes omeprazole (PRILOSEC) 20 mg capsule Take 1 capsule by mouth 2 times daily. Yes Assessment: Ervin Helms is a 55 y.o. male with a PMH of poorly-controlled type 2 diabetes mellitus, psoriasis/psoriatic arthritis, GERD & iron deficiency anemia. His diabetes is managed with oral agents plus MDI insulin and he monitors his BG with Chepe, although has been having difficulty with insurance coverage. A1C Goal for Mr. Helms is <7.0% to prevent diabetic complications as he currently has none. Labs for VIET were ordered last visit and this was ruled out, thus non-insulin DM meds appropriate to continue. The main goal of today's visit was working to get Chepe continued. We also discussed adjusting insulin by checking BG 2 hours after eating to determine if his mealtime boluses aresufficient. Plan: 1. I will include interpretation of 03/14/21-03/27/21 CGM data in today's visit, we discussed the results including elevated blood sugars late morning and mid- afternoon. Report provided. 2. Will await insurance approval of CGM and follow appeal process if they deny coverage. 3. Monitor your mealtime dosing of Novolog--check blood sugar 2 hours after eating, goal is <180. If it's higher than 180 then consider increasing dose by 1 unit. 4. Follow up in 3mo, sooner as needed. This was a 35 minute visit spent [id number] with patient discussing diabetes management and providing education including but not limited to information in history and plan. An additional 15 minutes was spent reviewing previous notes and labs, ordering labs, interpreting CGM & completing documentation. I have reviewed the plan outlined above with the patient and the patient has verbalized understanding. Chel Greenberg PA-C Department of Endocrinology [facility] * Chel Greenberg PA - 05/04/2021 10:15 AM EDT Images from the original note were not included. Continuous Glucose Monitoring (CGM) Interpretation I reviewed 72 hours + Chepe CGM data from 03/14/21-03/27/21. There is a trend for hyperglycemia in mid-morning and ~3pm. documented in this encounter Plan of Treatment Upcoming Encounters Date Type Department Care Team (Late st Contact Info) Description 11/08/2024 3:30 PM EST Office Visit Dermatology at [address] [place] [phone] Prosper Schmidt MD [address] [facility] [place] [address] 12/14/2024 2:40 PM EST Office Visit Cardiology at [address] [place] [phone] Benjie Garrison MD [facility] [place] [address] documented as of this encounter Visit Diagnoses Diagnosis Uncontrolled type 2 diabetes mellitus with hyperglycemia, with long-term current use of insulin documented in this encounter Care Teams School Bus Driver/Teacher Assistant Relationship Specialty Start Date End Date Maciej Szymanski DO [address] [facility] [address] [place] [address] PCP - General 09/18/10 09/30/22 documented as of this encounter
--- OUTSIDE RECORDS SUMMARY | 2024-10-08 00:37 | XMS_ITS | Encounter Summary ---
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 STAT 11/08/2023 6:00 PM EST BASIC METABOLIC PANEL Routine 11/08/2023 6:00 PM EST documented in this encounter Results * POCT Glucose (11/11/2023 12:14 PM EST) Glucose, POC 166 65 - 199 mg/dL [facility] Comment: Supplemental ranges: <140 mg/dL before meals <180 mg/dL all other times of the day Blood 11/11/2023 12:1 4 PM EST 11/11/2023 12:14 PM EST Aroldo Wynne MD POINT OF CARE TEST O ROBBY Performing Organization Address City/[facility] Co de Phone Number [facility] [place] [address] * POCT Glucose (11/11/2023 7:24 AM EST) Glucose, POC 127 65 - 199 mg/dL [facility] Comment: Supplemental ranges: <140 mg/dL before meals <180 mg/dL all other times of the day Blood 11/11/2023 7:24 AM EST 11/11/2023 7:24 AM EST Aroldo Wynne MD POINT OF CARE TEST O ROBBY Performing Organization Address [facility] Co de Phone Number [facility] [place] [address] * POCT Glucose (11/11/2023 3:48 AM EST) Glucose, POC 199 65 - 199 mg/dL [facility] Comment: Supplemental ranges: <140 mg/dL before meals <180 mg/dL all other times of the day Blood 11/11/2023 3:48 AM EST 11/11/2023 3:48 AM EST Aroldo Wynne MD POINT OF CARE TEST O ROBBY Performing Organization Address [facility] Co de Phone Number [facility] [place] [address] * (ABNORMAL) Differential, Automated (11/11/2023 3:13 AM EST) Neutrophil % 63.8 % [facility] Neutrophil Absolute 6.11(H) 1.70 - 6.10 x10(3)/mc L [facility] Lymph % 20.1 % [facility] Lymphocytes Abs 1.9 0.9 - 3.2 x10(3)/ L [facility] Monocyte % 12.5 % [facility] Monocyte Abs 1.2(H) 0.3 - 0.9 x10(3)/[facility] Eos % 2.7 % [facility] Eosinophils Abs 0.3 0.0 - 0.4 x10(3)/[facility] Basophil % 0.4 % [facility] Baso Absolute 0.0 0.0 - 0.1 x10(3)/[facility] Immature Gran % 0.50 % [facility] Comment: Immature granulocytes(IG's)percentage and absolute count will include metamyelocytes, myelocytes, and promyelocytes. Blood smears from CBCs yielding IG's will be scanned manually for concordance. If this scan disagrees with the automated IG or if promyelocytes are noted, a manual differential will be performed. Immature Gran Absolute 0.05(H) 0.00 - 0.04 x10(3)/ L [facility] Blood 11/11/2023 3:13 AM EST 11/11/2023 3:23 AM EST Narrative Resulting Agency Comment Spec In Lab Lucy Herring MD HEMATOLOGY ORDERABLE S Performing Organization Address City/State/[facility] Co de Phone Number [facility] [place] [address] * (ABNORMAL) Hemogram (11/11/2023 3:13 AM EST) White Blood Cell 9.6(H) 4.0 - 9.5 x10(3)/[facility] Red Blood Cell 4.17(L) 4.58 - 5.54 x10(6)/[facility] Hemoglobin 10.2(L) 13.7 - 16.5 g/dL [facility] Hematocrit 31.9(L) 40.5 - 48.5 % [facility] Mean Cell Volume 76.5(L) 82.9 - 93.1 fL [facility] Mean Cell Hemoglobin 24.5(L) 27.5 - 32.1 pg [facility] Mean Cell Hemoglobin Concentration 32.0 32.0 - 35.7 g/dL [facility] Platelet 328 145 - 357 x10(3)/mc L [facility] RDW Standard Deviation 42.7 36.0 - 45.0 fL [facility] RDW coefficient of variation 15.6(H) 11.4 - 13.8 % [facility] Mean Platelet Volume 9.2 7.6 - 12.9 fL [facility] NRBC% auto 0.0 % [facility] NRBC Absolute 0.000 0.000 - 0.000 x10(3)/mc L [facility] Blood 11/11/2023 3:13 AM EST 11/11/2023 3:23 AM EST Narrative Resulting Agency Comment Spec In Lab Lucy Herring MD HEMATOLOGY ORDERABLE S Performing Organization Address City/[facility] Co de Phone Number [facility] [place] [address] * (ABNORMAL) Hepatic Function Panel (11/11/2023 3:13 AM EST) Protein, Total 6.4 6.1 - 8.0 g/dL [facility] Albumin 3.7 3.2 - 5.2 g/dL [facility] Aspartate Aminotransferase 70(H) 0 - 39 unit/L [facility] Alanine Aminotransferase 37 0 - 55 unit/L [facility] Alkaline Phosphatase 96 40 - 130 unit/L [facility] Bilirubin, Total <0.2(L) 0.2 - 1.3 mg/dL [facility] Bilirubin, Direct 0.1 0.0 - 0.3 mg/dL [facility] Blood 11/11/2023 3:13 AM EST 11/11/2023 3:23 AM EST Narrative Resulting Agency Comment Spec In Lab Aroldo Wynne MD CHEMISTRY ORDERABLES Performing Organization Address City/[facility] Co de Phone Number [facility] [place] [address] * Magnesium (11/11/2023 3:13 AM EST) Magnesium 0.99 0.69 - 1.07 mmol/L [facility] Blood 11/11/2023 3:13 AM EST 11/11/2023 3:23 AM EST Narrative Resulting Agency Comment Spec In Lab Aroldo Wynne MD CHEMISTRY ORDERABLES Performing Organization Address City/State/[facility] Co de Phone Number [facility] [place] [address] * (ABNORMAL) Basic Metabolic Panel (non-fasting) (11/11/2023 3:13 AM EST) Glucose 235(H) 65 - 199 mg/dL [facility] Comment: result rechecked-ssc Diabetes: >=200 mg/dL plus symptoms Blood Urea Nitrogen 25(H) 10 - 20 mg/dL [facility] Creatinine 1.44 0.80 - 1.50 mg/dL [facility] Sodium 134(L) 135 - 145 mmol/L [facility] Potassium 3.9 3.5 - 5.0 mmol/L [facility] Comment: Please note: ??Patients with WBC >100,000 may have falsely elevated Potassium levels. ??For accurate Potassium quantification in these patients send serum separator tube (gold top) for subsequent determinations. ??Contact the Clinical Chemistry Laboratory if there are any questions. Chloride 100 98 - 107 mmol/L [facility] Carbon Dioxide 24 22 - 31 mmol/L [facility] Anion Gap 10 5 - 15 mmol/L [facility] Calcium 8.7 8.5 - 10.5 mg/dL [facility] Est Glomerular Filtration Rate 57(L) >=60 mL/min/1. 73 m?? [facility] Comment: This patient's estimated GFR [...] Narrative Resulting Agency Comment Spec In Lab Aroldo Wynne MD CHEMISTRY ORDERABLES Performing Organization Address [facility] Co de Phone Number [facility] [place] [address] * (ABNORMAL) POCT Glucose (11/10/2023 7:38 PM EST) Glucose, POC 208(H) 65 - 199 mg/dL [facility] Comment: Supplemental ranges: <140 mg/dL before meals <180 mg/dL all other times of the day Blood 11/10/2023 7:38 PM EST 11/10/2023 7:38 PM EST Aroldo Wynne MD POINT OF CARE TEST O RDERABLES Performing Organization Address [facility] Co de Phone Number [facility] [place] [address] * (ABNORMAL) Troponin (11/10/2023 7:19 PM EST) Troponin-T, High Sensitivity 8,806(H) <=22 ng/L [facility] Comment: This patient's troponin T concentration [...] troponin value can be found in the [facility] Test Catalog Troponin - [facility] Test Catalog Reference: [place] Definition of Myocardial Infarction. Journal of the [employer] [employer] 2018;72:9314-8256 Blood 11/10/2023 7:19 PM EST 11/10/2023 7:28 PM EST Narrative Resulting Agency Comment Spec In Lab Aroldo Wynne MD CHEMISTRY ORDERABLES [facility] [place] [address] * (ABNORMAL) Troponin (11/10/2023 3:30 PM EST) Troponin-T, High Sensitivity 8,840(H) <=22 ng/L [facility] Comment: This patient's troponin T concentration [...] troponin value can be found in the [facility] Test Catalog Troponin - [facility] Test Catalog Reference: [place] Definition of Myocardial Infarction. Journal of the [employer] [employer] 2018;72:0987-9769 Blood 11/10/2023 3:30 PM EST 11/10/2023 3:45 PM EST Narrative Resulting Agency Comment Spec In Lab Aroldo Wynne MD CHEMISTRY ORDERABLES Performing Organization Address [facility] Co de Phone Number [facility] [place] [address] * POCT Glucose (11/10/2023 3:26 PM EST) Glucose, POC 153 65 - 199 mg/dL [facility] Comment: Supplemental ranges: <140 mg/dL before meals <180 mg/dL all other times of the day Blood 11/10/2023 3:26 PM EST 11/10/2023 3:26 PM EST Aroldo Wynne MD POINT OF CARE TEST O RDERABLES Performing Organization Address [facility] Co de Phone Number [facility] [place] [address] * POCT Glucose (11/10/2023 11:22 AM EST) Glucose, POC 140 65 - 199 mg/dL [facility] Comment: Supplemental ranges: <140 mg/dL before meals <180 mg/dL all other times of the day Blood 11/10/2023 11:2 2 AM EST 11/10/2023 11:22 AM EST Aroldo Wynne MD POINT OF CARE TEST O RDERAJOEL Performing Organization Address [facility] Co de Phone Number [facility] [place] [address] * EKG 12 Lead (11/10/2023 8:23 AM EST) Ventricular rate 112 BPM MUSE SYSTEM Atrial Rate 112 BPM MUSE SYSTEM P-R Interval 190 ms MUSE SYSTEM QRS Duration 96 ms MUSE SYSTEM Q-T Interval 322 ms MUSE SYSTEM QTC Calculated (Bezet) 439 ms MUSE SYSTEM Calculated P [place] 65 degrees MUSE SYSTEM Calculated R [place] 23 degrees MUSE SYSTEM Calculated T [place] 16 degrees MUSE SYSTEM INTERPRETATION Sinus tachycardia Indeterminate axis Inferior-posterio r infarct (cited on or before 08-NOV-2023) ACUTE CT / STEMI Abnormal ECG When compared with ECG of 08-NOV-2023 23:23, Criteria for Lateral infarct are no longer Present Serial changes of evolving Inferior-posterio r infarct Present I personally reviewed the tracing and edited the fellows interpretation Confirmed by fellow MD Ana, Rayo ([id number]) on 11/10/2023 3:00:11 PM Confirmed by MD YU, AROLDO ([id number]) on 11/10/2023 4:24:44 PM MUSE SYSTEM 11/10/2023 8:23 AM EST 11/10/2023 4:24 PM EST Aroldo Wynne MD ECG ORDERABLES Performing Organization Address City/[facility]/ZIP Co de Phone Number MUSE SYSTEM * POCT Glucose (11/10/2023 7:37 AM EST) Glucose, POC 123 65 - 199 mg/dL [facility] Comment: Supplemental ranges: <140 mg/dL before meals <180 mg/dL all other times of the day Blood 11/10/2023 7:37 AM EST 11/10/2023 7:37 AM EST Aroldo Wynne MD POINT OF CARE TEST O RDERABLES Performing Organization Address City/[facility] Co de Phone Number [facility] [place] [address] * (ABNORMAL) Basic Metabolic Panel (non-fasting) (11/10/2023 6:09 AM EST) Glucose 88 65 - 199 mg/dL [facility] Comment:Diabetes: >=200 mg/d L plus symptoms Blood Urea Nitrogen 27(H) 10 - 20 mg/dL [facility] Creatinine 1.33 0.80 - 1.50 mg/dL [facility] Sodium 137 135 - 145 mmol/L [facility] Potassium 3.6 3.5 - 5.0 mmol/L [facility] Comment: Please note: ??Patients with WBC >100,000 may have falsely elevated Potassium levels. ??For accurate Potassium quantification in these patients send serum separator tube (gold top) for subsequent determinations. ??Contact the Clinical Chemistry Laboratory if there are any questions. Chloride 103 98 - 107 mmol/L [facility] Carbon Dioxide 23 22 - 31 mmol/L [facility] Anion Gap 11 5 - 15 mmol/L [facility] Calcium 9.1 8.5 - 10.5 mg/dL [facility] Est Glomerular Filtration Rate 63 >=60 mL/min/1. 73 m?? [facility] Comment: This patient's estimated GFR [...] Narrative Resulting Agency Comment Spec In Lab Aroldo Wynne MD CHEMISTRY ORDERABLES [facility] [place] [address] * (ABNORMAL) Differential, Automated (11/10/2023 3:13 AM EST) Neutrophil % 69.8 % [facility] Neutrophil Absolute 7.96(H) 1.70 - 6.10 x10(3)/mc L [facility] Lymph % 17.6 % [facility] Lymphocytes Abs 2.0 0.9 - 3.2 x10(3)/mc L [facility] Monocyte % 11.0 % [facility] Monocyte Abs 1.2(H) 0.3 - 0.9 x10(3)/mc L [facility] Eos % 0.8 % [facility] Eosinophils Abs 0.1 0.0 - 0.4 x10(3)/mc L [facility] Basophil % 0.4 % [facility] Baso Absolute 0.0 0.0 - 0.1 x10(3)/mc L [facility] Immature Gran % 0.40 % [facility] Comment: Immature granulocytes(IG's)percentage and absolute count will include metamyelocytes, myelocytes, and promyelocytes. Blood smears from CBCs yielding IG's will be scanned manually for concordance. If this scan disagrees with the automated IG or if promyelocytes are noted, a manual differential will be performed. Immature Gran Absolute 0.05(H) 0.00 - 0.04 x10(3)/mc L [facility] Blood 11/10/2023 3:13 AM EST 11/10/2023 4:49 AM EST Narrative Resulting Agency Comment Spec In Lab Lucy Herring MD HEMATOLOGY ORDERABLE S Performing Organization Address City/State/[facility] Co de Phone Number [facility] [place] [address] * (ABNORMAL) Hemogram (11/10/2023 3:13 AM EST) White Blood Cell 11.4(H) 4.0 - 9.5 x10(3)/mc L [facility] Red Blood Cell 4.45(L) 4.58 - 5.54 x10(6)/mc L [facility] Hemoglobin 10.9(L) 13.7 - 16.5 g/dL [facility] Hematocrit 33.8(L) 40.5 - 48.5 % [facility] Mean Cell Volume 76.0(L) 82.9 - 93.1 fL [facility] Mean Cell Hemoglobin 24.5(L) 27.5 - 32.1 pg [facility] Mean Cell Hemoglobin Concentration 32.2 32.0 - 35.7 g/dL [facility] Platelet 365(H) 145 - 357 x10(3)/mc L [facility] RDW Standard Deviation 42.4 36.0 - 45.0 fL [facility] RDW coefficient of variation 15.6(H) 11.4 - 13.8 % [facility] Mean Platelet Volume 9.0 7.6 - 12.9 fL [facility] NRBC% auto 0.0 % [facility] NRBC Absolute 0.000 0.000 - 0.000 x10(3)/mc L [facility] Blood 11/10/2023 3:13 AM EST 11/10/2023 4:49 AM EST Narrative Resulting Agency Comment Spec In Lab Lucy Herring MD HEMATOLOGY ORDERABLE S Performing Organization Address City/[facility] Co de Phone Number [facility] [place] [address] * Magnesium (11/10/2023 3:13 AM EST) Magnesium 1.03 0.69 - 1.07 mmol/L [facility] Blood 11/10/2023 3:13 AM EST 11/10/2023 4:49 AM EST Narrative Resulting Agency Comment Spec In Lab Aroldo Wynne MD CHEMISTRY ORDERABLES Performing Organization Address [facility] Co de Phone Number [facility] [place] [address] * (ABNORMAL) Basic Metabolic Panel (non-fasting) (11/10/2023 3:13 AM EST) Glucose Not Perf 65 - 199 [facility] Comment: Sample improperly processed prior to receipt. Diabetes: >=200 mg/dL plus symptoms Blood Urea Nitrogen 27(H) 10 - 20 mg/dL [facility] Creatinine 1.30 0.80 - 1.50 mg/dL [facility] Sodium 136 135 - 145 mmol/L [facility] Potassium Not Perf 3.5 - 5.0 [facility] Comment: Sample improperly processed prior to receipt. Please note: ??Patients with WBC >100,000 may have falsely elevated Potassium levels. ??For accurate Potassium quantification in these patients send serum separator tube (gold top) for subsequent determinations. ??Contact the Clinical Chemistry Laboratory if there are any questions. Chloride 101 98 - 107 mmol/L [facility] Carbon Dioxide 24 22 - 31 mmol/L [facility] Anion Gap 11 5 - 15 mmol/L [facility] Calcium 8.9 8.5 - 10.5 mg/dL [facility] Est Glomerular Filtration Rate 64 >=60 mL/min/1. 73 m?? [facility] [...] Narrative Resulting Agency Comment Spec In Lab Aroldo Wynne MD CHEMISTRY ORDERABLES Performing Organization Address [facility] de Phone Number [facility] [place] [address] * (ABNORMAL) Hepatic Function Panel (11/10/2023 3:13 AM EST) Protein, Total 6.9 6.1 - 8.0 g/dL [facility] Albumin 4.0 3.2 - 5.2 g/dL [facility] Aspartate Aminotransferase 141(H) 0 - 39 unit/L [facility] Alanine Aminotransferase 52 0 - 55 unit/L [facility] Alkaline Phosphatase 92 40 - 130 unit/L [facility] Bilirubin, Total 0.3 0.2 - 1.3 mg/dL [facility] Bilirubin, Direct 0.1 0.0 - 0.3 mg/dL [facility] Blood 11/10/2023 3:13 AM EST 11/10/2023 4:49 AM EST Narrative Resulting Agency Comment Spec In Lab Aroldo Wynne MD CHEMISTRY ORDERABLES Performing Organization Address [facility] Co de Phone Number [facility] [place] [address] * (ABNORMAL) Troponin (11/10/2023 3:13 AM EST) Troponin-T, High Sensitivity >10,000(H ) <=22 ng/L [facility] Comment: This patient's troponin T concentration [...] troponin value can be found in the [facility] Test Catalog Troponin - [facility] Test Catalog Reference: [place] Definition of Myocardial Infarction. Journal of the [place] [employer] 2018;72:5632-6692 Blood 11/10/2023 3:13 AM EST 11/10/2023 4:49 AM EST Narrative Resulting Agency Comment Spec In Lab Aroldo Wynne MD CHEMISTRY ORDERABLES Performing Organization Address [facility] [place] [address] * (ABNORMAL) pro-Brain Natriuretic Peptide (11/10/2023 3:13 AM EST) Pathologist [facility] NT-proBNP 1,141(H) <=124 pg/mL [facility] Blood 11/10/2023 3:13 AM EST 11/10/2023 4:49 AM EST Narrative Resulting Agency Comment Spec In Lab Aroldo Wynne MD CHEMISTRY ORDERABLES Performing Organization Address [facility]/ZIP Co de Phone Number [facility] [place] [address] * POCT Glucose (11/09/2023 8:37 PM EST) Glucose, POC 134 65 - 199 mg/dL [facility] Comment: Supplemental ranges: <140 mg/dL before meals <180 mg/dL all other times of the day Blood 11/09/2023 8:37 PM EST 11/09/2023 8:37 PM EST Aroldo Wynne MD POINT OF CARE TEST O ROBBY [facility] [place] [address] * POCT Glucose (11/09/2023 4:39 PM EST) Glucose, POC 149 65 - 199 mg/dL [facility] Comment: Supplemental ranges: <140 mg/dL before meals <180 mg/dL all other times of the day Blood 11/09/2023 4:39 PM EST 11/09/2023 4:39 PM EST Aroldo Wynne MD POINT OF CARE TEST O ROBBY Performing Organization Address City/[facility] Co de Phone Number [facility] [place] [address] * U Albumin/Cre Ratio (11/09/2023 4:29 PM EST) Albumin / Creatinin Ratio, Urine Not Calculated 0 - 29 mcg/mg Cr [facility] Comment: Reference Ranges: <30 mcg/mg: [...] 2, 357? 362 Albumin, Urine <3.0 mg/L [facility] Creatinine, Urine 52 mg/dL [facility] Urine 11/09/2023 4:29 PM EST 11/09/2023 4:41 PM EST Narrative Resulting Agency Comment Spec In Lab Aroldo Wynne MD URINE ORDERABLES Performing Organization Address City/[facility]/ZIP Co de Phone Number [facility] [place] [address] * (ABNORMAL) Troponin (11/09/2023 2:50 PM EST) Troponin-T, High Sensitivity 8,138(H) <=22 ng/L [facility] Comment: This patient's troponin T concentration [...] troponin value can be found in the [facility] Laboratory Test Catalog Troponin - [facility] Laboratory Test Catalog Reference: [place] Definition of Myocardial Infarction. Journal of the [place] [employer] 2018;72:0714-5239 Blood 11/09/2023 2:50 PM EST 11/09/2023 2:54 PM EST Narrative Resulting Agency Comment Spec In Lab Aroldo Wynne MD CHEMISTRY ORDERABLES Performing Organization Address City/[facility] Co de Phone Number [facility] [place] [address] * ECHO COMPLETE W CONTRAST (11/09/2023 2:45 [...] By: Linda Arnold RDCS Exam Location: [facility]. ? Conclusions Normal left ventricular size with severely reduced LV systolic function. LV ejection fraction 28%. RCA territory wall motion abnormality. Normal right ventricular size and function. No significant valvular abnormalities. No prior echoes available for comparison. Procedure Complete-[id number]. Image enhancement Optison was used for left [...] ? 15-16 ? diffuse Electronically signed by: Aroldo Min, MD ?11/09/2023, 7: 53 PM Procedure Note Aroldo Wynne MD - 11/09/2023 Version: 1 Name: ERVIN HELMS Study Date: 11/09/2023,1: 05 PM BP: 104 / 77 mmHg : 1965 (MM/DD/YYYY) Height: 71 cm Age: 57 Years Weight: 111.584 kg Gender: Male BSA: 1.17 m?? Ordering Physician: SANDY TYLER Referring Physician: SANDY TYLER Performed By: Linda Arnold [facility] Exam Location: [facility]. Conclusions Normal left ventricular size with severely reduced LV systolic function.LV ejection fraction 28%. RCA territory wall motion abnormality. Normal right ventricular size and function. No significant valvular abnormalities. No prior echoes available for comparison. Procedure Complete-[id number]. Image enhancement Optison was used for left [...] 6-14 large 15-16 diffuse Electronically signed by: Aroldo Wynne MD 11/09/2023, 7: 53 PM Sandy Tyler MD ECHO ORDERABLES * (ABNORMAL) POCT Glucose (11/09/2023 12:05 PM EST) Pathologist [facility] Glucose, POC 368(H) 65 - 199 mg/dL [facility] Comment: Supplemental ranges: <140 mg/dL before meals <180 mg/dL all other times of the day Blood 11/09/2023 12:0 5 PM EST 11/09/2023 12:05 PM EST Aroldo Wynne MD POINT OF CARE TEST O RDERABLES [facility] [place] [address] * (ABNORMAL) Hepatic Function Panel (11/09/2023 11:06 AM EST) Pathologist [facility] Protein, Total 7.0 6.1 - 8.0 g/dL [facility] Albumin 4.2 3.2 - 5.2 g/dL [facility] Aspartate Aminotransferase 291(H) 0 - 39 unit/L [facility] Alanine Aminotransferase 71(H) 0 - 55 unit/L [facility] Alkaline Phosphatase 100 40 - 130 unit/L [facility] Bilirubin, Total 0.5 0.2 - 1.3 mg/dL [facility] Bilirubin, Direct 0.2 0.0 - 0.3 mg/dL [facility] Blood 11/09/2023 11:0 6 AM EST 11/09/2023 11:19 AM EST Narrative Resulting Agency Comment Spec In Lab Aroldo Wynne MD CHEMISTRY ORDERABLES Performing Organization Address [facility] Co de Phone Number [facility] [place] [address] * (ABNORMAL) Iron and TIBC (11/09/2023 11:06 AM EST) Iron 41(L) 45 - 160 mcg/dL [facility] TIBC 320 250 - 450 mcg/dL [facility] Iron Saturation 13(L) 20 - 50 % [facility] Blood 11/09/2023 11:0 6 AM EST 11/09/2023 11:19 AM EST Narrative Resulting Agency Comment Spec In Lab Aroldo Wynne MD CHEMISTRY ORDERABLES Performing Organization Address [facility] Co de Phone Number [facility] [place] [address] * (ABNORMAL) Ferritin (11/09/2023 11:06 AM EST) Ferritin 26(L) 31 - 409 ng/mL [facility] Comment: Please note that as of 10/01/2023, the reference intervals for Ferritin have been updated. Blood 11/09/2023 11:0 6 AM EST 11/09/2023 11:19 AM EST Narrative Resulting Agency Comment Spec In Lab Aroldo Wynne MD CHEMISTRY ORDERABLES Performing Organization Address City/[facility] Co de Phone Number [facility] [place] [address] * (ABNORMAL) Troponin (11/09/2023 11:06 AM EST) Troponin-T, High Sensitivity 8,713(H) <=22 ng/L [facility] Comment: This patient's troponin T concentration [...] troponin value can be found in the [facility] Test Catalog Troponin - [facility] Test Catalog Reference: Fourth [place] Definition of Myocardial Infarction. Journal of the [place] [employer]iology 2018;72:2290-2794 Blood 11/09/2023 11:0 6 AM EST 11/09/2023 11:19 AM EST Narrative Resulting Agency Comment Spec In Lab Aroldo Wynne MD CHEMISTRY ORDERABLES [facility] [place] [address] * POCT Glucose (11/09/2023 7:37 AM EST) Pathologist [facility] Glucose, POC 103 65 - 199 mg/dL [facility] Comment: Supplemental ranges: <140 mg/dL before meals <180 mg/dL all other times of the day Blood 11/09/2023 7:37 AM EST 11/09/2023 7:37 AM EST Aroldo Wynne MD POINT OF CARE TEST O RDERABLES Performing Organization Address City/[facility]/[place] [address] * Scan, Peripheral Blood (11/09/2023 3:31 AM EST) Plat estimate Increased [facility] RBC Morphology Abnormal [facility] Microcyte 6-10 /HPF [facility] Hypochromia Slight [facility] Ovalocytes 1-5 /HPF [facility] [place] Cells 1-5 /HPF [facility] Blood 11/09/2023 3:31 AM EST 11/09/2023 3:54 AM EST Narrative Resulting Agency Comment Spec In Lab Lucy Herring MD HEMATOLOGY ORDERABLE S Performing Organization Address City/[facility] [place] [address] * (ABNORMAL) Differential, Automated (11/09/2023 3:31 AM EST) Neutrophil % 75.2 % [facility] Neutrophil Absolute 10.07(H) 1.70 - 6.10 x10(3)/mc L [facility] Lymph % 10.8 % [facility] Lymphocytes Abs 1.4 0.9 - 3.2 x10(3)/mc L [facility] Monocyte % 13.2 % [facility] Monocyte Abs 1.8(H) 0.3 - 0.9 x10(3)/mc L [facility] Eos % 0.0 % [facility] Eosinophils Abs 0.0 0.0 - 0.4 x10(3)/mc L [facility] Basophil % 0.4 % [facility] Baso Absolute 0.1 0.0 - 0.1 x10(3)/mc L [facility] Immature Gran % 0.40 % [facility] Comment: Immature granulocytes(IG's)percentage and absolute count will include metamyelocytes, myelocytes, and promyelocytes. Blood smears from CBCs yielding IG's will be scanned manually for concordance. If this scan disagrees with the automated IG or if promyelocytes are noted, a manual differential will be performed. Immature Gran Absolute 0.05(H) 0.00 - 0.04 x10(3)/mc L [facility] Blood 11/09/2023 3:31 AM EST 11/09/2023 3:54 AM EST Narrative Resulting Agency Comment Spec In Lab Lucy Herring MD HEMATOLOGY ORDERABLE S [facility] [place] [address] * (ABNORMAL) Hemogram (11/09/2023 3:31 AM EST) White Blood Cell 13.4(H) 4.0 - 9.5 x10(3)/mc L [facility] Red Blood Cell 4.72 4.58 - 5.54 x10(6)/mc L [facility] Hemoglobin 11.5(L) 13.7 - 16.5 g/dL [facility] Hematocrit 35.9(L) 40.5 - 48.5 % [facility] Mean Cell Volume 76.1(L) 82.9 - 93.1 fL [facility] Mean Cell Hemoglobin 24.4(L) 27.5 - 32.1 pg [facility] Mean Cell Hemoglobin Concentration 32.0 32.0 - 35.7 g/dL [facility] Platelet 359(H) 145 - 357 x10(3)/mc L [facility] RDW Standard Deviation 41.8 36.0 - 45.0 fL [facility] RDW coefficient of variation 15.3(H) 11.4 - 13.8 % [facility] Mean Platelet Volume 8.9 7.6 - 12.9 fL [facility] NRBC% auto 0.0 % [facility] NRBC Absolute 0.000 0.000 - 0.000 x10(3)/mc L [facility] Blood 11/09/2023 3:31 AM EST 11/09/2023 3:54 AM EST Narrative Resulting Agency Comment Spec In Lab Lucy Herring MD HEMATOLOGY ORDERABLE S Performing Organization Address City/[facility]/ZIP Co de Phone Number [facility] [place] [address] * Magnesium (11/09/2023 3:31 AM EST) Magnesium 0.83 0.69 - 1.07 mmol/L [facility] Blood 11/09/2023 3:31 AM EST 11/09/2023 3:53 AM EST Narrative Resulting Agency Comment Spec In Lab Aroldo Wynne MD CHEMISTRY ORDERABLES Performing Organization Address [facility] Co de Phone Number [facility] [place] [address] * (ABNORMAL) Basic Metabolic Panel (non-fasting) (11/09/2023 3:31 AM EST) Glucose 120 65 - 199 mg/dL [facility] Comment:Diabetes: >=200 mg/d L plus symptoms Blood Urea Nitrogen 22(H) 10 - 20 mg/dL [facility] Creatinine 1.10 0.80 - 1.50 mg/dL [facility] Sodium 134(L) 135 - 145 mmol/L [facility] Potassium 4.3 3.5 - 5.0 mmol/L [facility] Comment: Please note: ??Patients with WBC >100,000 may have falsely elevated Potassium levels. ??For accurate Potassium quantification in these patients send serum separator tube (gold top) for subsequent determinations. ??Contact the Clinical Chemistry Laboratory if there are any questions. Chloride 100 98 - 107 mmol/L [facility] Carbon Dioxide 22 22 - 31 mmol/L [facility] Anion Gap 12 5 - 15 mmol/L [facility] Calcium 9.0 8.5 - 10.5 mg/dL [facility] Est Glomerular Filtration Rate 79 >=60 mL/min/1. 73 m?? [facility] Comment: This patient's estimated GFR [...] Narrative Resulting Agency Comment Spec In Lab Aroldo Wynne MD CHEMISTRY ORDERABLES [facility] [place] [address] * Lipid Panel (Reflex Direct LDL) (11/09/2023 3:31 AM EST) Cholesterol, Total 133 mg/dL [facility] Comment: Lower Risk: <200 mg/dL Average Risk: 200-239 mg/dL Higher Risk: >um=704 mg/dL Triglyceride 35 mg/dL [facility] Comment: Average Risk/Lower Risk: <150 mg/dL Borderline High Risk: 150-199 mg/dL High Risk: 200-499 mg/dL Very High Risk: >nn=278 mg/dL HDL Cholesterol 52 mg/dL [facility] Comment: Males: ?? Higher Risk: <40 mg/dL Females: ?? Higher Risk: <50 mg/dL LDL Cholesterol 74 mg/dL [facility] Comment: Lowest Risk: <100 mg/dL Lower Risk: 100-129 mg/dL Borderline High Risk: 130-159 mg/dL High Risk: 160-189 mg/dL Very High Risk: >li=759 mg/dL Cholesterol/HDL Ratio 2.6 ratio [facility] Lipid Interpretation See Note [facility] Comment: Lipid management should be guided by a patient? s ASCVD risk, goals and preferences. ACC/AHA Guidelines recommend high intensity statin if clinical ASCVD or LDL greater than or equal to 190 mg/dL. http://Orggerurl.com/WQD-LBI-Lrxcvamqv Adults aged 40-75 with LDL 70-189 mg/dL should have their 10 year ASCVD risk estimated with the ACC/AHA ASCVD risk steel estimator http://tools.acc.org/FNVWE-Pqoh-Newllehwx/ Statin should be discussed if risk greater [...] Tyler MD CHEMISTRY ORDERABLES Performing Organization Address [facility] Co de Phone Number [facility] [place] [address] * (ABNORMAL) Hemoglobin A1c (11/09/2023 3:31 AM EST) Hemoglobin A1c 7.3(H) 4.3 - 5.6 % [facility] Comment: Reference Range: 4.3 - [...] Mellitus, Diabetes Care 2013; 36: Suppl. 1, S67-06 Estimated Average Glucose 163 mg/dL [facility] Blood 11/09/2023 3:31 AM EST 11/09/2023 3:54 AM EST Narrative Resulting Agency Comment Spec In Lab Sandy Tyler MD CHEMISTRY ORDERABLES Performing Organization Address [facility] Co de Phone Number [facility] [place] [address] * TSH (11/09/2023 3:31 AM EST) Thyroid Stimulating Hormone 1.84 0.27 - 4.20 mcIU/mL [facility] Comment: Reference Interval (mcIU/mL): Females: ??First Trimester: 0.23-3.88 ??Second Trimester: 0.22-3.90 ??Third Trimester: 0.44-4.66 Blood 11/09/2023 3:31 AM EST 11/09/2023 3:53 AM EST Narrative Resulting Agency Comment Spec In Lab Sandy Tyler MD CHEMISTRY ORDERABLES Performing Organization Address City/[facility] Co de Phone Number [facility] [place] [address] * EKG 12 Lead (11/08/2023 11:23 PM EST) Ventricular rate 108 BPM MUSE SYSTEM Atrial Rate 108 BPM MUSE SYSTEM P-R Interval 192 ms MUSE SYSTEM QRS Duration 90 ms MUSE SYSTEM Q-T Interval 318 ms MUSE SYSTEM QTC Calculated (Bezet) 426 ms MUSE SYSTEM Calculated P [place] 45 degrees MUSE SYSTEM Calculated R [place] 25 degrees MUSE SYSTEM Calculated T [place] 31 degrees MUSE SYSTEM INTERPRETATION Sinus tachycardia Inferolateral infarction , new ACUTE CT / STEMI Abnormal ECG When compared with ECG of 08-NOV-2023 18:54, No significant change was found Confirmed by MD Fatoumata, Kishore Okeefe ([id number]) on 11/09/2023 10:30:18 AM MUSE SYSTEM 11/08/2023 11:2 3 PM EST 11/09/2023 10:30 AM EST Aroldo Wynne MD ECG ORDERABLES Performing Organization Address [facility] Co de Phone Number MUSE SYSTEM * POCT Glucose (11/08/2023 10:14 PM EST) Glucose, POC 173 65 - 199 mg/dL [facility] Comment: Supplemental ranges: <140 mg/dL before meals <180 mg/dL all other times of the day Blood 11/08/2023 10:1 4 PM EST 11/08/2023 10:14 PM EST Aroldo Wynne MD POINT OF CARE TEST O RDERABLES Performing Organization Address [facility]/[place] [address] * CARDIAC CATHETERIZATION (11/08/2023 7:00 PM EST) Anatomical Region Laterality Modality Other Narrative 11/10/2023 7:32 AM EST ?[facility] ? Cardiac Catheterization/Intervention Report ? Patient Name: CARMEN, ERVIN S. ? Procedure Date: 11/08/2023 ? A #: [id number] ? Primary Physician: Sandy Tyler ? Case #: [id number] ? File Name: [id number] ? Catheterization Order Number: [id number] ? [facility] ? Final Report [place], [place] ? Patient Name: ? ERVIN S. CARMEN ?ID#: ?[id number] ? : ?1965 ? Procedure Date: ? November 08, 2023 ? Case #: ? [id number] ? Room: ? 6 ? Case Physician: [...] procedure was Emergent. The indication for ?the laboratory animal care veterinarian visit is ACS less than or equal [...] 3.5 guiding catheter and a 3.5 Fr Makah Eye [place] 20 Mhz using ?Manual pullback. ??Imaging was [...] ? A premounted 3.50 x 26 mm [place] (MARCOS) was deployed ? with a maximum [...] dose administered prior to arrival in the laboratory animal care veterinarian. ?Recommended anti-platelet/anti-thrombotic regimen: ?Continue aspirin 81 mg daily for indefinitely. ?Continue clopidogrel 75 mg daily for 12 months then stop. ?These recommendations are made at the time of the intervention. Patient ?and provider preferences or a changing clinical situation may require ?modification of this regimen. Consult [facility] Interventional Cardiology for ?questions. ?The 1 year [...] a work horse Run Through ?wire, a Academic Coordinator 50 or Academic Coordinator 150. ??Attention was turned to the left system, ?which showed an acutely occluded mid LCx with thrombus, as well as robust ?collaterals from the left system feeding the RCA. ??Clearly the LCx was ?the culprit and the RCA was a KEELER POLYGRAPH OPERATOR. ??Intervention to the LCx with ?thrombectomy (copious thrombus) and stenting was successful with a good ?result. ??Recommend assessing for viability in the RCA territory, consider ?KEELER POLYGRAPH OPERATOR intervention if medically appropriate post discharge. ?The attending physician was present for the entire procedure. ?Dr. Sandy Tyler M.D. was present during the moderate sedation ?intraservice time as documented by the sedation nurse. ??Case time = 00:44. ?Dr. Sandy Tyler M.D. performed the coronary angiography, left heart ?catheterization, IVUS # coronary, stent insertion-coronary, embolic ?protection/thrombectomy-coronary and angioplasty-coronary. ? Sandy Zuniga Kristine, M.D. ? Electronically Signed by: Sandy Zuniga Kristine, M.D. ? Report Finalized: 11/09/2023 ??10:00 ? Report Last Ammended: 12/03/2023 ??14:53 ? Procedure Note Sandy Tyler MD - 12/04/2023 [facility] Cardiac Catheterization/Intervention Report Patient Name: ERVIN HELMS Procedure Date: 11/08/2023 A #: [id number] Primary Physician: Sandy Tyler Case #: [id number] File Name: [id number] Catheterization Order Number: [id number] [facility] FinalReport [place], [place] Patient Name: ERVIN HELMS ID#:[id number] :1965 Procedure Date: November 08, 2023 Case [...] was designated as ASA Class IV. The [facility] clinical frailtyscale is 5: Mildly Frail. Diagnostic Tests: Electrocardiography: EKG was assessed by ECG. EKG was Abnormal. EKG showed T-wave inversions, ST Deviation >= 0.5 mm and other abnormality. Medications Prior to Procedure: Aspirin and Thrombolytic (any). Indications for Diagnostic Cath: The priority of the diagnostic procedure was Emergent. Theindication for the laboratory animal care veterinarian visit is ACS less than or equal [...] 3.5 guiding catheter and a 3.5 Fr Makah Eye [place] 20 Mhzusing Manual pullback. Imaging was successful. [...] The priority for the procedure was Emergent.[facility] for the procedure was STEMI-Rescue (afterUnsuccessful [...] The lesion was predilated with a 2.50mm ARIFSSC82 MM balloon with a maximum inflation pressure of 18atmospheres. A premounted 3.50 x 26 mm [place] (MARCOS) wasdeployed with a maximum inflation pressure [...] dose administered prior to arrival in the laboratory animal care veterinarian. Recommended anti-platelet/anti-thrombotic regimen: Continue aspirin 81 mg daily for indefinitely. Continue clopidogrel 75 mg daily for 12 months then stop. These recommendations are made at the time of the intervention.Patient and provider preferences or a changing clinical situation mayrequire modification of this regimen. Consult [facility] Interventional Cardiologyfor questions. The 1 year bleeding [...] a work horse Run Through wire, a Academic Coordinator 50 or Academic Coordinator 150. Attention was turned to the leftsystem, which showed an acutely occluded mid LCx with thrombus, as well asrobust collaterals from the left system feeding the RCA. Clearly the LCxwas the culprit and the RCA was a KEELER POLYGRAPH OPERATOR. Intervention to the LCx with thrombectomy (copious thrombus) and stenting was successful with agood result. Recommend assessing for viability in the RCA territory,consider KEELER POLYGRAPH OPERATOR intervention if medically appropriate post discharge. [...] (Bezet) 410 ms MUSE SYSTEM Calculated P [place] 33 degrees MUSE SYSTEM Calculated R [place] 32 degrees MUSE SYSTEM Calculated T [place] 29 degrees MUSE SYSTEM INTERPRETATION Sinus rhythm with 1st degree A-V block Possible Left atrial enlargement Inferior-poste rior infarct , possibly acute ACUTE CT / STEMI Abnormal ECG No previous ECGs available Confirmed by MD Fatoumata, Kishore Okeefe ([id number]) on 11/09/2023 10:29:37 AM MUSE SYSTEM 11/08/2023 6:54 PM EST 11/09/2023 10:29 AM EST Aroldo Wynne MD ECG ORDERABLES MUSE SYSTEM * POCT Glucose (11/08/2023 6:03 PM EST) Glucose, POC 120 65 - 199 mg/dL [facility] Comment: Supplemental ranges: <140 mg/dL before meals <180 mg/dL all other times of the day Blood 11/08/2023 6:03 PM EST 11/08/2023 6:03 PM EST Sandy Tyler MD POINT OF CARE TEST O RDERABLES Performing Organization Address [facility] Co de Phone Number [facility] [facility] [place] [address] * Scan, Peripheral Blood (11/08/2023 6:00 PM EST) [facility] Plat estimate Increased [facility] RBC Morphology Abnormal [facility] Macrocyte 1-5 /HPF [facility] Microcyte 1-5 /HPF [facility] Ovalocytes 1-5 /HPF [facility] Tear Cell 1-5 /HPF [facility] Eduarda Cells 1-5 /HPF [facility] Blood 11/08/2023 6:00 PM EST 11/08/2023 7:18 PM EST Narrative Resulting Agency Comment Spec In Lab Sandy Tyler MD HEMATOLOGY ORDERABLE S Performing Organization Address [facility] [place] [address] * (ABNORMAL) Differential, Automated (11/08/2023 6:00 PM EST) [facility] Neutrophil % 73.0 % [facility] Neutrophil Absolute 9.56(H) 1.70 - 6.10 x10(3)/mc L [facility] Lymph % 17.7 % [facility] Lymphocytes Abs 2.3 0.9 - 3.2 x10(3)/mc L [facility] Monocyte % 8.5 % [facility] Monocyte Abs 1.1(H) 0.3 - 0.9 x10(3)/mc L [facility] Eos % 0.1 % [facility] Eosinophils Abs 0.0 0.0 - 0.4 x10(3)/mc L [facility] Basophil % 0.3 % [facility] Baso Absolute 0.0 0.0 - 0.1 x10(3)/mc L [facility] Immature Gran % 0.40 % [facility] Comment: Immature granulocytes(IG's)percentage and absolute count will include metamyelocytes, myelocytes, and promyelocytes. Blood smears from CBCs yielding IG's will be scanned manually for concordance. If this scan disagrees with the automated IG or if promyelocytes are noted, a manual differential will be performed. Immature Gran Absolute 0.05(H) 0.00 - 0.04 x10(3)/ L [facility] Blood 11/08/2023 6:00 PM EST 11/08/2023 7:18 PM EST Narrative Resulting Agency Comment Spec In Lab Sandy Tyler MD HEMATOLOGY ORDERABLE S Performing Organization Address City/State/[facility] Co de Phone Number [facility] [place] [address] * (ABNORMAL) Hemogram (11/08/2023 6:00 PM EST) White Blood Cell 13.1(H) 4.0 - 9.5 x10(3)/ L [facility] Red Blood Cell 4.35(L) 4.58 - 5.54 x10(6)/mc [facility] Hemoglobin 10.7(L) 13.7 - 16.5 g/dL [facility] Hematocrit 32.6(L) 40.5 - 48.5 % [facility] Mean Cell Volume 74.9(L) 82.9 - 93.1 fL [facility] Mean Cell Hemoglobin 24.6(L) 27.5 - 32.1 pg [facility] Mean Cell Hemoglobin Concentration 32.8 32.0 - 35.7 g/dL [facility] Platelet 373(H) 145 - 357 x10(3)/mc L [facility] RDW Standard Deviation 41.7 36.0 - 45.0 fL [facility] RDW coefficient of variation 15.2(H) 11.4 - 13.8 % [facility] Mean Platelet Volume 9.1 7.6 - 12.9 fL [facility] NRBC% auto 0.0 % [facility] NRBC Absolute 0.000 0.000 - 0.000 x10(3)/mc L [facility] Blood 11/08/2023 6:00 PM EST 11/08/2023 7:18 PM EST Narrative Resulting Agency Comment Spec In Lab Sandy Tyler MD HEMATOLOGY ORDERABLE S [facility] [place] [address] * Basic Metabolic Panel (non-fasting) (11/08/2023 6:00 PM EST) Glucose 93 65 - 199 mg/dL [facility] Comment:Diabetes: >=200 mg/d L plus symptoms Blood Urea Nitrogen 20 10 - 20 mg/dL [facility] Creatinine 0.97 0.80 - 1.50 mg/dL [facility] Sodium 136 135 - 145 mmol/L [facility] Potassium 3.5 3.5 - 5.0 mmol/L [facility] Comment: Please note: ??Patients with WBC >100,000 may have falsely elevated Potassium levels. ??For accurate Potassium quantification in these patients send serum separator tube (gold top) for subsequent determinations. ??Contact the Clinical Chemistry Laboratory if there are any questions. Chloride 101 98 - 107 mmol/L [facility] Carbon Dioxide 22 22 - 31 mmol/L [facility] Anion Gap 13 5 - 15 mmol/L [facility] Calcium 8.7 8.5 - 10.5 mg/dL [facility] Est Glomerular Filtration Rate 92 >=60 mL/min/1. 73 m?? [facility] Comment: This patient's estimated GFR [...] In Lab Sandy Tyler MD CHEMISTRY ORDERABLES [facility] [place] [address] documented in this encounter Visit Diagnoses Diagnosis ST elevation myocardial infarction (STEMI), unspecified artery ST elevation myocardial infarction involving left circumflex coronary artery Acute myocardial infarction of other specified sites, initial episode of care Coronary artery disease, unspecified vessel or lesion type, unspecified whether angina present, unspecified whether one[place] or transplanted heart ST elevation myocardial infarction [...] 11/08/23 at 1925, Until 11/11/23 at 1857, Cough, DO NOT CRUSH OR [...] Given 11/09/2023 8:38 PM EST 40 mg fentaNYL (pf) (50 mcg/mL) multi-dose injection PRN, Starting on 11/08/23 at 1805, Until 11/08/23 at 1938, Intra-Operative (Intra-Procedure), Routine Given 11/08/2023 6:18 PM EST 25 mcg Given 11/08/2023 6:05 PM EST 25 mcg glucagon (Glucagen) (1 mg/mL) injection solution 1 [...] weight of tube = 37.5 grams.), Routine heparin (porcine) (1,000 units/mL) injection PRN, Starting on 11/08/23 at 1805, Until 11/08/23 at 1938, Intra-Operative (Intra-Procedure), Routine Given 11/08/2023 6:18 PM EST 2,000 Units Given 11/08/2023 6:05 PM EST 4,500 Units insulin glargine-ygfn (Semglee) (100 unit/mL) subcutaneous injection vial 15 Units 15 Units, Subcutaneous, NIGHTLY, First dose on 11/08/23 at 2100, Until Discontinued, Routine Given 11/10/2023 8:12 PM EST 15 Units Given 11/09/2023 8:38 PM EST 15 Units insulin glargine-ygfn (Semglee) (100 unit/mL) subcutaneous injection vial 21 Units 21 Units, Subcutaneous, DAILY, First dose on Fri11/09/23 at 0900, Until Discontinued, Routine Given 11/11/2023 8:57 AM EST 21 Units Given 11/10/2023 8:31 AM EST 21 Units Given 11/09/2023 9:03 AM EST 21 Units insulin lispro (HumaLOG;Admelog) (100 unit/mL) subcutaneous injection vial 0-8 Units 0-8 Units, Subcutaneous, 3 TIMES DAILY WITH MEALS, First dose on Fri11/09/23 at 1700, Until Discontinued, MEAL ASSOCIATED Give [...] Given 11/11/2023 12:21 PM EST 2 Units iohexoL (Omnipaque) (350 mg/mL) solution PRN, Starting on 11/08/23 at 1845, Until 11/08/23 at 1938, Intra-Operative (Intra-Procedure), Routine Given 11/08/2023 6:45 PM EST 120 mLs metoprolol succinate XL (Toprol-XL) tablet 25 mg 25 mg, Oral, DAILY, First dose on Fri11/11/23 at 1100, Until Discontinued, DO NOT CRUSH OR OPEN, Routine Given 11/11/2023 12:20 PM EST 25 mg midazolam (pf) (Versed) (1 mg/mL) multi-dose injection PRN, Starting on 11/08/23 at 1805, Until 11/08/23 at 1938, Intra-Operative (Intra-Procedure), Routine Given 11/08/2023 6:05 PM EST 1 mg nitroGLYcerin 100 mcg/mL intracoronary dilution PRN, Starting on 11/08/23 at 1801, Until 11/08/23 at 1938, Intra-Operative (Intra-Procedure), Routine Given 11/08/2023 6:01 PM EST 150 mcg pantoprazole EC (Protonix) tablet 40 mg 40 [...] Given 11/10/2023 3:19 PM EST 12.5 mg verapamiL (Isoptin) (2.5 mg/mL) injection PRN, Starting on 11/08/23 at 1801, Until 11/08/23 at 1938, Administer over 2 Minutes, Intra-Operative (Intra-Procedure) Given 11/08/2023 6:01 PM EST 2 .5 mg documented in this encounter Active and [...] Powell RN) 0856 (Given - Provider: Rosalind M Troy, RN) enoxaparin (Lovenox) (40 mg/0.4 mL) subcutaneous [...] on 11/09/23 at 0900, Until Discontinued, Routine 0903 (Given - Provider: David Powell RN) 0831 (Given - Provider: David Powell RN) 0857 (Given - Provider: Rosalind Simmons, NEMO) insulin lispro (HumaLOG;Admelog) (100 unit/mL) subcutaneous injection [...] Rosalind Simmons, NEMO)1418 (Given - Provider: Rosalind Simmons RN - Comment: delayed eating) insulin lispro (HumaLOG;Admelog) [...] SCHEDULED, First dose (after last modification) on Fri11/10/23 at 0000, Until Discontinued, Routine 2333 (Given - Provider: Vanessa Gold RN) metoproloL tartrate (Lopressor) tablet 25 mg (CANCELED) 25 mg, Oral, EVERY 6 HOURS SCHEDULED, First dose (after last modification) on 11/09/23 at 1800, Until Discontinued, Routine 1747 (Given - Provider: David Powell RN) pantoprazole EC (Protonix) tablet 40 mg 40 mg, Oral, DAILY, First dose on 11/08/23 at 2015, Until Discontinued 0900 (Given - Provider: David Powell RN) 0825 (Given - Provider: David Powell RN) 0856 (Given - Provider: Rosalind Simmons RN) sodium chloride 0.9 % (flush) (BD PosiFlush Normal Saline 0.9) flush 5 mL 5 mL, Intravenous, 2 TIMES DAILY, First dose on 11/08/24 at 2100, Until Discontinued, Routine 09 (Given - Provider: David Powell RN)2041 (Given [...] 2037 (Given - Provider: Vanessa Gold RN) 08 (Not Given - Provider: David Powell RN [...] Cough, DO NOT CRUSH OR OPEN, Routine 0919 (Given - Provid er: Rosalind Simmons RN) [...] 11/08/23 at 1925, Until Fri11/11/23 at 1857, Rhinitis, Routine glucagon (Glucagen) (1 [...] PRN, Starting on 11/08/23 at 1925, Until Tu11/11/23 at 1857, Chest pain, May repeat every [...] Routine documented in this encounter Care Teams Licensed Insurance Agent Relationship Specialty Start Date End Date Ermias Teague, PETRA [address] [place] [address] PCP - General Family Medicine 10/01/22 documented as of this encounter
--- OUTSIDE RECORDS SUMMARY | 2024-10-08 00:37 | XMS_ITS | Encounter Summary ---
Author Organization [facility] Address [facility] [place] [address] Care Team Providers Care Rn Chronic Name Role Phone StephonMaciej hunter Primary Care Provider Encounter Details Date Type Department Care Team (Late st Contact Info) Description 09/27/2020 Refill Dermatology at [address] [phone] Daisy Keita LPN Social History [...] 3:30 PM EST Office Visit Dermatology at [address] [phone] Prosper Schmidt MD [address] [place] [address], [facility] DERMAT[facility]Y [place], [place] [id number] 12/14/2024 2:40 PM EST Office Visit Cardiology at [address] [phone] Benjie Garrison MD [facility] [place] [address] documented as of this encounter Visit Diagnoses Not on filedocumented in this encounter Care Teams Rn Chronic Relationship Specialty Start Date End Date Maciej Szymanski DO [address] [place] [address] PCP - General 09/18/10 09/30/22 documented as of this encounter
--- OUTSIDE RECORDS SUMMARY | 2024-10-08 00:37 | XMS_ITS | Encounter Summary ---
Author Organization [facility] Address [facility] [place] [address] Care Team Providers Care Clinical Resource Coordinator Name Role Phone HoErmias Niko LAMBERT Primary Care Provider [phone] Reason for Visit * Reason Comments Medication Refill Encounter Details Date Type Department Care Team (Late st Contact Info) Description 10/23/2023 Refill Dermatology at [address] [place] [phone] Prosper Schmidt MD [address] [facility], [address] A DERMATOLOGY [place], [place] [id number] Psoriatic arthritis Social History Tobacco Use Types [...] encounter Miscellaneous Notes * Telephone Encounter - Daisy Keita LPN - 10/23/2023 1:16 PM EST Pt reports he missed Enbrel injection last week and he's going to miss this weeks also. He didn't have the time to call the pharmacy in the last two weeks to find out what the issue was. Patient cancelled September appointment and now has appointment 11/03/23. No new breakouts yet, but he's hoping [employer] will deliver real soon. Ordered one pack of four. Pack comes with four pens. This will take him until his f/u and two weeks after. documented in this encounter Plan of Treatment Upcoming Encounters Date Type Department Care Team (Late st Contact Info) Description 11/08/2024 3:30 PM EST Office Visit Dermatology at [address] [phone] Prosper Schmidt MD [address] [facility], [facility] [place] [address] 12/14/2024 2:40 PM EST Office Visit Cardiology at [address] [phone] Benjie Garrison MD [facility] [place] [address] documented as of this encounter Visit Diagnoses Diagnosis Psoriatic arthritis Psoriatic arthropathy documented in this encounter Care Teams Clinical Resource Coordinator Relationship Specialty Start Date End Date Ermias Teague APRN [address] [facility] 1 [place] [address] PCP - General Family Medicine 10/01/22 documented as of this encounter
--- OUTSIDE RECORDS SUMMARY | 2024-10-08 00:37 | XMS_ITS | Encounter Summary ---
Author Organization [facility] Address [facility] [place] [address] Care Team Providers Care Wood Cabinetmaker Name Role Phone Maciej Szymanski DO Primary Care Provider Encounter Details Date Type Department Care Team (Late st Contact Info) Description 09/27/2021 9:15 AM EST Office Visit Dermatology at [address] [phone] Prosper Schmidt MD [address] [place] [address], [facility] [place] [address] Psoriatic arthritis; Psoriasis; Dermatitis Social History Tobacco Use Types Packs/Day Years [...] Progress Notes * Prosper Schmidt MD - 09/27/2021 9:15 AM EST Problem: 1. ??Psoriasis and psoriatic arthritis on Enbrel since November 2017 doing very well 2. ??Previous on methotrexate November 2015 through December 2017 3. Probable scabies treated September 2020 Ervin follows up and has been doing well. The Enbrel continues to work very well for him. His psoriasis remains clear. He has a patch of eczema on the right lateral forearm at the elbow, and some intermittent psoriasis comes and goes in the genital area. He has had no further problems with itching/scabies Physical examination reveals a pleasant 55-year-old gentleman whose psoriasis is clear on the elbows the knees. He has no stigmata of psoriasis. He does have a patches of excoriations on the right lateral elbow on the both the forearm and arm and he states he has some intermittent psoriasis in the genital area Assessment plan: Psoriasis, controlled with Enbrel 1. Continue Enbrel injecting the 50 mg autoinjector pen once subcutaneously every week. Will dispense 4 with 11 refills for 1 year supply 2. Instead of triamcinolone use new prescription, calcipotriene cream applying twice daily this to psoriasis in genital area. Dispense 60 g with 5 refills. 2. Return to clinic in 1 year for repeat check Eczematous dermatitis right arm 1. May use triamcinolone cream twice daily to the site until it clears and then use CeraVe as emollient CC: Maciej Szymanski DO documented in this encounter Plan of Treatment Upcoming Encounters Date Type Department Care Team (Late st Contact Info) Description 11/08/2024 3:30 PM EST Office Visit Dermatology at [address] [phone] Prosper Schmidt MD [address] [place] [address], [facility], [facility] [place] [address] 12/14/2024 2:40 PM EST Office Visit Cardiology at [address] [phone] Benjie Garrison MD [facility] [place] [address] documented as of this encounter Visit Diagnoses Diagnosis Psoriatic arthritis Psoriatic arthropathy Psoriasis Other psoriasis Dermatitis Contact dermatitis and other eczema, due to unspecified cause documented in this encounter Care Teams Wood Cabinetmaker Relationship Specialty Start Date End Date Maciej Szymanski DO [address] [place] [address] PCP - General 09/18/10 09/30/22 documented as of this encounter
--- OUTSIDE RECORDS SUMMARY | 2024-10-08 00:37 | XMS_ITS | Encounter Summary ---
Author Organization [facility] Address [facility] [place] [address] Care Team Providers Care Belt Picker Name Role Phone Maciej Szymanski DO Primary Care Provider [phone] Reason for Visit * Reason Comments Follow-up Encounter Details Date Type Department Care Team (Late st Contact Info) Description 05/01/2020 4:30 PM EDT Office Visit Dermatology at [address] [phone] Prosper Schmidt MD [address] [place] [address], [facility] [place] [address] Psoriatic arthritis; Psoriasis Social History Tobacco Use [...] Progress Notes * Prosper Schmidt MD - 05/01/2020 4:30 PM EDT Problem: 1. ??Psoriasis and psoriatic arthritis on Enbrel since November 2017 doing very well 2. ??Previous on methotrexate November 2015 through December 2017 Ervin follows up for a 6-month check. He now has the [employer] co-pay debit card so his [id number] expense for Enbrel is $0. His Enbrel is working exceptionally well for both his arthritis and his cutaneous psoriasis. However he developed a furunculosis recently. His also has a skin issue at the moment which sounds to be the same problem. Physical examination reveals large papulopustules present on the lower extremities and furuncles inthe right axillary vault consistent with staph aureus furunculosis. He has no active psoriasis. [place] is clear. Assessment and plan: Psoriasis psoriatic arthritis well-controlled Enbrel 50 mg using the SureClick autoinjector once weekly 1. Continue current dosing and will renew for another 6-month supply. 2. Enbrel 50 mg sure click autoinjector dispense number 4 for 1 supply with 3 refills 3. Return to clinic another 6 months for repeat check Staph/strep furunculosis 1. Patient is allergic to sulfa 2. Begin cephalexin 500 mg take 1 p.o. qid for 7 days then discontinue. Dispense #28 with 0 refills. Will be called into his [facility] in [facility] 3. Recommended bleach bath water soaks today and repeat again in 1 week, and also for his . Describe technique for doing this and written instructions given Cc: Maciej Szymanski DO documented in this encounter Plan of Treatment Upcoming Encounters Date Type Department Care Team (Late st Contact Info) Description 11/08/2024 3:30 PM EST Office Visit Dermatology at [address] [phone] Prosper Schmidt MD [address] [place] [address], [facility] [place] [address] 12/14/2024 2:40 PM EST Office Visit Cardiology at [address] [phone] Benjie Garrison MD [facility] [place] [address] documented as of this encounter Visit Diagnoses Diagnosis Psoriatic arthritis Psoriatic arthropathy Psoriasis Other psoriasis documented in this encounter Care Teams Belt Picker Relationship Specialty Start Date End Date Maciej Szymanski DO [address] [facility] 1 [place] [address] PCP - General 09/18/10 09/30/22 documented as of this encounter
--- OUTSIDE RECORDS SUMMARY | 2024-10-08 00:37 | XMS_ITS | Encounter Summary ---
Author Organization [facility] Address [facility] [place] [address] Care Team Providers Care Aquatics Instructor Name Role Phone StephonMaciej hunter Primary Care Provider Encounter Details Date Type Department Care Team (Late Contact Info) Description 09/07/2021 Refill Dermatology at [address] [phone] Daisy Keita LPN Psoriatic arthritis [...] PM EST Office Visit Dermatology at [address] [phone] Prosper Schmidt MD [address] [place] [address], [facility] [place], [place] [id number] 12/14/2024 2:40 PM EST Office Visit Cardiology at [address] [phone] Benjie Garrison MD [facility] [place] [address] documented as of this encounter Visit Diagnoses Diagnosis Psoriatic arthritis Psoriatic arthropathy documented in this encounter Care Teams Aquatics Instructor Relationship Specialty Start Date End Date Maciej Szymanski DO [address] [place] [address] PCP - General 09/18/10 09/30/22 documented as of this encounter
--- OUTSIDE RECORDS SUMMARY | 2024-10-08 00:37 | XMS_ITS | Encounter Summary ---
Author Organization [facility] Address [facility] [place] [address] Care Team Providers Care Take Off Worker Name Role Phone Ermias Teague APRN Primary Care Provider [phone]- [phone] Encounter Details Date Type Department Care Team (Latest Contact Info) Description 11/03/2023 Travel Social History Tobacco Use Types Packs/Day [...] PM EST Office Visit Dermatology at [address] [phone] Prosper Schmidt MD [address] [place] [address], [facility] DERMATOLOGY [place], [place] [id number] 12/14/2024 2:40 PM EST Office Visit Cardiology at [address] [phone] Benjie Garrison MD [facility] [place] [address] documented as of this encounter Visit Diagnoses Not on filedocumented in this encounter Care Teams Take Off Worker Relationship Specialty Start Date End Date Ermias Teague, PETRA [address] [place] [address] PCP - General Family Medicine 10/01/22 documented as of this encounter
--- OUTSIDE RECORDS SUMMARY | 2024-10-08 00:37 | XMS_ITS | Encounter Summary ---
Author Organization [facility] Address [facility] [place] [address] Care Team Providers Care Rolling Machine Operator Automatic Name Role Phone Maciej Szymanski DO Primary Care Provider Reason for Visit * Reason Comments Skin Check Encounter Details Date Type Department Care Team (Late st Contact Info) Description 09/27/2020 4:00 PM EST Office Visit Dermatology at [address] [place] [phone] Prosper Schmidt MD [address] [place] [address], [facility] [place] [address] Dermatitis Social History Tobacco Use Types Packs/Day [...] Progress Notes * Prosper Schmidt MD - 09/27/2020 4:00 PM EST Problem: 1. ??Psoriasis and psoriatic arthritis on Enbrel since November 2017 doing very well 2. ??Previous on methotrexate November 2015 through December 2017 ?? Ervin follows up because for a month or 2 now he had a very itchy rash on his arms and legs. His is also starting to itch. He works for [employer] and is is exposed to manyneedy and some homeless people. He was recently seen by Dr. Szymanski who suspected the possibilityof scabies. The itching will keep him awake at night or waking up from a sleep. Physical examination reveals a pleasant 54-year-old gentleman who has excoriations on the right dorsal forearm near the elbow and on the shins. He has no evidence of any scabietic burrows or papules/vesicles. However the appearance and the history is really very consistent with and very suspicious for scabies. Assessment plan: Probable scabies infestation. 1. Discussed the diagnosis with patient 2. Patient given instructional handout discussing the appropriate application method for permethrin5% cream. 3. Explained that should apply the permethrin tonight and repeat again in 1 week and his should also be treated. Her know her name is Dracy Helms and her date of is 12/08/1956. 4. Return will be called into [facility] in [place] for permethrin 5% cream applied tonight from neck down and wash off in a.m. Repeat again in 7 days. Dispense 60 g tube, with 0 refills 5. Prescribe the same product for his Darcy Juarez date of 12/08/1956. 6. Prescription will be called in for triamcinolone 0.1% cream apply to areas of itching on a dailytwice daily basis. Dispense 80 g with 1 refill. CC: Maciej Szymanski DO documented in this encounter Plan of Treatment Upcoming Encounters Date Type Department Care Team (Late st Contact Info) Description 11/08/2024 3:30 PM EST Office Visit Dermatology at [address] [place] [address] Prosper Schmidt MD [address] [place] [address], [facility] [address] 12/14/2024 2:40 PM EST Office Visit Cardiology at [address] [address] Benjie Garrison MD [facility] [place] [address] documented as of this encounter Visit Diagnoses Diagnosis Dermatitis Contact dermatitis and other eczema, due to unspecified cause documented in this encounter Care Teams Rolling Machine Operator Automatic Relationship Specialty Start Date End Date Maciej Szymanski DO [address] [place] [address] PCP - General 09/18/10 09/30/22 documented as of this encounter
--- OUTSIDE RECORDS SUMMARY | 2024-10-08 00:37 | XMS_ITS | Encounter Summary ---
Author Organization [facility] [place] [address] Care Team Providers Care Pleat Patternmaker Name Role Phone Ermias Teague APRN Primary Care Provider [phone] Reason for Visit * Reason Comments Medication Refill Encounter Details Date Type Department Care Team (Late Contact Info) Description 09/12/2023 Refill Dermatology at [address] [phone] Prosper Schmidt MD [address] [place] [address], [facility] [place] [address] Psoriatic arthritis Social History Tobacco Use Types [...] 3:30 PM EST Office Visit Dermatology at [address] [phone] Prosper Schmidt MD [address] [place] [address], [facility] [place] [address] 12/14/2024 2:40 PM EST Office Visit Cardiology at [address] [place] [address] Benjie Garrison MD [facility] [place] [address] documented as of this encounter Visit Diagnoses Diagnosis Psoriatic arthritis Psoriatic arthropathy documented in this encounter Care Teams Pleat Patternmaker Relationship Specialty Start Date End Date Ermias Teague, RESIDENT ADVISOR [address] [place] [address] PCP - General Family Medicine 10/01/22 documented as of this encounter
--- OUTSIDE RECORDS SUMMARY | 2024-10-08 00:37 | XMS_ITS | Encounter Summary ---
[place] [address] Care Team Providers Care Vocational Nursing Instructor Name Role Phone Maciej Szymanski DO Primary Care Provider Encounter Details Date Type Department Care Team (Late st Contact Info) Description 03/28/2021 Telephone [place] [phone] Ry Pelaez RN Social History Tobacco Use Types Packs/Day [...] encounter Miscellaneous Notes * Telephone Encounter - Ry Pelaez RN - 03/30/2021 10:49 AM EDT Images from the original note were not included. March 29, 2021 Chel Greenberg PA to Me 8:46 PM I have no idea what this would be about so I'm going to disregard. Chel * Telephone Encounter - Ry Pelaez RN - 03/28/2021 4:17 PM EDT Received voicemail from clinical pharmacist at [facility] (could not understand his name). He says he received a message from patient's PCP that Chel Greenberg had some questions for him. He was calling to see if he could answer those questions for Chel. documented in this encounter Plan of Treatment Upcoming Encounters Date Type Department Care Team (Late st Contact Info) Description 11/08/2024 3:30 PM EST Office Visit Dermatology at [address] [phone] Prosper Schmidt MD [address] [place] [address], [facility] [place] [address] 12/14/2024 2:40 PM EST Office Visit Cardiology at [address] [phone] Benjie Garrison MD [facility] [place] [address] documented as of this encounter Visit Diagnoses Not on filedocumented in this encounter Care Teams Vocational Nursing Instructor Relationship Specialty Start Date End Date Maciej Szymanski DO [address] [facility] [place] [address] PCP - General 09/18/10 09/30/22 documented as of this encounter
--- OUTSIDE RECORDS SUMMARY | 2024-10-08 00:37 | XMS_ITS | Encounter Summary ---
Author Organization [facility] Address [facility] [place] [place] [address] Care Team Providers Care Tobacco Prizer Name Role Phone HoLamaikel Pope APRN Primary Care Provider [phone] Reason for Visit * Reason Comments Psoriasis Encounter Details Date Type Department Care Team (Late st Contact Info) Description 10/01/2022 10:00 AM EST Office Visit Dermatology at [address] [phone] Prosper Schmidt MD [address] [place] [address], [facility] [place] [address] Psoriasis; Psoriatic arthritis Social History Tobacco Use Types [...] Progress Notes * Prosper Schmidt MD - 10/01/2022 10:00 AM EST Problem: 1. ??Psoriasis and psoriatic arthritis on Enbrel since November 2017 doing very well 2. ??Previous on methotrexate November 2015 through December 2017 3. ??Probable scabies treated September 2020 ?? Ervin follows up and has been doing well. The Enbrel continues to work very well for him. His psoriasis remains clear. Quested a refill of his calcipotriene cream which he uses intermittently in the groin area on the scrotum and inguinal folds Physical examination reveals a pleasant 56-year-old gentleman whose psoriasis is clear on the [...] clinic in 1 year for repeat check ?? CC: Ermias Teague APRN ?? documented in this encounter Plan of Treatment Upcoming Encounters Date Type Department Care Team (Late st Contact Info) Description 11/08/2024 3:30 PM EST Office Visit Dermatology at [address] [phone] Prosper Schmidt MD [address] [place] [address], COUNTS INCLUDE [address] [facility]EDS AT [facility] [place] [address] 12/14/2024 2:40 PM EST Office Visit Cardiology at [address] [phone] Benjie Garrison MD [facility] [place] [address] documented as of this encounter Visit Diagnoses Diagnosis Psoriasis Other psoriasis Psoriatic arthritis Psoriatic arthropathy documented in this encounter Care Teams Tobacco Prizer Relationship Specialty Start Date End Date Ermias Teague APRN [address] [facility] 1 [place] [address] PCP - General Family Medicine 10/01/22 documented as of this encounter
--- OUTSIDE RECORDS SUMMARY | 2024-10-08 00:37 | XMS_ITS | Encounter Summary ---
[place] [address] Care Team Providers Care Filter Tank Tender Helper Head Name Role Phone StephonMaciej hunter Primary Care Provider [phone] Encounter Details Date Type Department Care Team (Late st Contact Info) Description 09/07/2020 Telephone [place] [address] Jacqueline Arriaga Social History Tobacco Use Types Packs/Day Years [...] PM EST Office Visit Dermatology at [address] [phone] Prosper Schmidt MD [address] [place] [address], [facility] DERMATOLOGY [place], [place] [id number] 12/14/2024 2:40 PM EST Office Visit Cardiology at [address] [phone] Benjie Garrison MD [facility] [place] [address] documented as of this encounter Visit Diagnoses Not on filedocumented in this encounter Care Teams Filter Tank Tender Helper Head Relationship Specialty Start Date End Date Maciej Szymanski DO [address] [place] [address] PCP - General 09/18/10 09/30/22 documented as of this encounter
--- OUTSIDE RECORDS SUMMARY | 2024-10-08 00:37 | XMS_ITS | Encounter Summary ---
Author Organization [facility] Address [facility] [place] [address] Care Team Providers Care Tooling Engineer Name Role Phone Maciej Szymanski DO Primary Care Provider Reason for Visit * Consultation (Routine) - Closed Specialty Diagnoses / Procedures Referred By Zenaida zuniga Referred To Contact Endocrinology Diagnoses Type 2 diabetes mellitus with hyperglycemia penitentiary (current) use of insulin Maciej Szymanski DO [address] [place] [address] [facility] [address] [place] [phone] Referral ID Status Reason Start Date Expiration Date V isits Requested Visits Authorized [id number] Closed Consult, [facility] PCP Updated and/or Approved 01/12/2021 01/12/2022 6 6 Encounter Details Date Type Department Care Team (Late st Contact Info) Description 02/09/2021 9:00 AM EDT Office [place] [address] Chel Greenberg PA [facility] [place] [address] Uncontrolled type 2 diabetes mellitus with hyperglycemia, [...] Sign Reading Time Taken Comments Blood Pressure 124/75 02/09/2021 9:14 AM EDT Pulse 98 02/09/2021 9:14 AM EDT Temperature 35.8 ??C (96.4 ??F) 02/09/2021 9:14 AM ED T Respiratory Rate - - Oxygen Saturation 100% 02/09/2021 9:14 AM EDT Inhaled Oxygen Concentration - - Weight 62.1 kg (137 lb) 02/09/2021 9:14 AM EDT Height 170.2 cm (5' 7) 02/09/2021 9:14 AM EDT Body Mass Index 21.46 02/09/2021 9:14 AM EDT documented in this encounter Patient Instructions * Patient Instructions* Chel Greenberg PA - 02/09/2021 9:00 AM EDT 1. Labs today to check for type 1 diabetes. This will help guide treatment. 2. Keep insulin dosing the same for now. 3. Schedule appt with your flavor extractor to discuss Chepe results. 4. Test more frequently--aim for fasting morning, before all meals and then 2 hours after eating, plus if you feel any symptoms of highs or lows. 5. Follow up appt in 3mo, sooner as needed. documented in this encounter Progress Notes * Chel Greenberg PA - 02/09/2021 9:00 AM EDT Diabetes Visit Note Name: Ervin Helms : 1965 PCP: Maciej Szymanski DO Date of visit: 02/09/2021 Reason for visit: Ervin Helms is a 55 y.o. male with Diabetes TYPE 2 here for follow up to the [facility] endocrine clinic for diabetes services. Past medical history significant for psoriasis/psoriatic arthritis, GERD & iron deficiency anemia. Patient was last seen in this clinic 16 months ago. Assessment/Plan from previous visit with Dinora Martin APRN on 10/11/19: DM Type 2) Ervin Helms is a 53 yr old male with Type 2 DM in less than optimal control , recent HA1c at PCP office 10.6 % . Ervin reports recent improvements in diet and compliance with additional meal associated insulin with 1 meal a day . He is interested in Chepe [place] which could benefit himand assist him with lowering HA1c and viewing glucose trends. Occasional lows none requiring assistance , carries hypoglycemia treatment at all times. Discussed continued meal coverage to improve overall control , patient is willing to add this in on a daily basis with additional post meal BG testing ?? Insulin - Novolog 2-3 units with dinner or lunch , using insulin to carb ratio of 1:15, adjust basal ( lantus down 1-2 units when taking additional meal associated insulin at dinnertime Interim history: Pt says that he's been working with his PCP and the flavor extractor through his PCP office (Ilir Paulino) to manage his diabetes since last visit. Reports that things are slowly getting better and that his PCP has told him that he has type 1.5 diabetes that is hard to control. Tried to order the Chepe CGM this past year and insurance didn't cover it, ordered it through the pharmacy benefit. Diabetes Diagnosis Date: diagnosed at about age 41yo Last 3 Hemoglobin A1Cs 09/07/19--10.6%, 05/19/20--9.6%, 01/12/21--8.6% Lab Results Component Value Date HA1C 8.2 (H) 05/21/2018 HA1C 8.5 (H) 01/20/2018 HA1C 8.7 (H) 07/22/2017 Current outpatient diabetes regimen: Oral medications: Metformin [...] history: 3 meals/day ~1 snacks/day * Breakfast: Bowl of cereal, milk * Lunch: PB & jelly sandwich, cookies * Dinner: Chicken, potatoes, green beans * Snacks: Cheese and peanut butter crackers, strawberry wafers, rice & wheat logs, fruit * Desserts: Sometimes has cookies * Drinks: Coffee, diet soda, water, juice 2019QI Exercise: Active lifestyle, trying to exercise more Sleep: 8 hours/day. 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 Glucose Monitoring: Meter type: Relion Number of Prescribed checks per day: 4x daily Number of checks completed: 2x daily--fasting AM and before dinner Reason for needing more than 3 checks daily: prevent severe hypoglycemia and severe hyperglycemia, wide fluctuation in numbers, overnight low glucose. Meter uploaded today: no Logbook brought to visit today: yes Average Blood sugar: ? Difficult to calculate. Duration of need: lifetime Continuous glucose monitor: no Pt has tried to get Chepe in the past and insurance hasn't covered it. I am recommending this patient get a Chepe CGM for personal use during the [facility] Patient is on Daily insulin injections Diagnosis: Diabetes Mellitus type 2 Patient performs SMBG 2x per day Patient administers 4-5 or more [...] in the past: no. Most recent event: Pt reports having infrequent lows which he self treats. Occurs 2-3x month and none overnight. Hyperglycemia History of DKA: no. Prescriber information: Chel Greenberg PA-C Diabetes education: Met with hospital educator/flavor extractor? yes through PCP office. History of Diabetes Related Complications and Prevention Eyes: Last Eye Exam: no, due for appt History of Diabetes Retinopathy: no Dental Care in last 6 months: yes Kidney function: Last urine microalbumin: 09/07/19, ordered to be done today Last creatinine: 01/12/21--1.3 mg/dL, GFR 57.53 On NICKY/ARB: no Cardio: Aspirin: no Last cholesterol: ordered to be done today Cholesterol medication: none Feet: History of Neuropathy: no Flu Vaccination: yes Pneumonia vaccine: yes COVID vaccine: completed series Smoker/tobacco use: Non-smoker Allergies: Allergies Allergen Reactions ? ? Dust & Pollen Filter Mask [Facial Mask] ??? Sulfa (Sulfonamide Antibiotics) PMH Past Medical History: Diagnosis Date ??? 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 . 2 adopted children, 5 grandchildren. Non-smoker. [...] current diabetic foot ulcers Physical Exam: BP 124/75 Pulse 98 Temp 35.8 ??C (96.4 ??F) Ht 170.2 cm (5' 7) Wt 62.1 kg (137 lb) SpO2 100% BMI 21.46 kg/m?? General appearance: Alert and cooperative. No acute distress. Thin. Heart: RRR, no murmurs Abdomen: soft, non-tender Skin: No hypertrophy, redness or irritation at injection sites. Skin normal texture and temperature. Lower extremities: no foot ulcer, no cyanosis or edema, pedal pulses 2+, monofilament testing on feet within normal limits, mycotic nails. Neuro: Normal gait Labs: Ordered to be done today. Medications: Medications 02/09/21 0918 Medication Sig Taking? triamcinolone (KENALOG) 0.1 % Cream Apply to areas of itching twice daily. Yes [id number] 750-625-1,000 mg-mg-unit Tablet Take by mouth. Yes [...] insulin and he monitors his BG with a glucometer/finger stick. Last A1C was improved from previous, but still above goal at 8.6%. Goal for Mr. Helms is <7.0% to prevent diabetic complicati ons as he currently has none. Review of his BG log showed wide fluctuations in his fasting AM BG, from 80's-300's. This is likely related to diet. Unclear why he is taking BID Lantus, may want to consider once daily dosing given duration of action. Mealtime insulin dosing is based on guesstimate method based on amount of carbs in the meal and blood glucose numbers--typically gives 2-3 units. Sometimes also gives correction boluses for elevated readings. Difficult to determine if mealtime bolus amounts are sufficient as Mr. Helms does not check his BG 2 hours after meals (goal <180). He would benefit from CGM or more frequent testing to help determine if mealtime doses are sufficient. Sample Chepe given today and pt instructed to follow up with his flavor extractor in [facility] or else our flavor extractor here. Labs ordered to determine if pt has VIET d/t poor control and body habitus. If positive, will adjust medication regimen to be more insulin focused, likely d/cing Metformin and glipizide. May keep Jardiance on board d/t CV benefit. Plan: 1. Labs today to check for type 1 diabetes. This will help guide treatment. 2. Keep insulin dosing the same for now. 3. Schedule appt with your flavor extractor to discuss Chepe results. 4. Test more frequently--aim for fasting morning, before all meals and then 2 hours after eating, plus if you feel any symptoms of highs or lows. 5. Follow up appt in 3mo, sooner as needed. This was a 45 minute visit spent [id number] with patient discussing diabetes management and providing education including but not limited to information in history and plan. An additional 15 minutes was spent reviewing previous notes and labs, ordering labs & completing documentation. I have reviewed the plan outlined above with the patient and the patient has verbalized understanding. Chel Greenberg PA-C Department of Endocrinology [facility] documented in this encounter Plan of Treatment Upcoming Encounters Date Type Department Care Team (Late st Contact Info) Description 11/08/2024 3:30 PM EST Office Visit Dermatology at [address] [place] [address] Prosper Schmidt MD [address] [place] [address], [place] [address] 12/14/2024 2:40 PM EST Office Visit Cardiology at [address] [place] [address] Benjie Garrison MD [facility] [place] [address] documented as of this encounter Procedures Procedure Name Priority Date/Time Associated Diagnosis Comments [facility] ISLET CELL AB GLUTAMIC ACID Routine 02/09/2021 10:46 AM EDT Uncontrolled type 2 diabetes mellitus with hyperglycemia, with long-term current use of insulin HC C PEPTIDE Routine 02/09/2021 10:46 AM EDT Uncontrolled type 2 diabetes mellitus with hyperglycemia, with long-term current use of insulin LDL CHOLESTEROL, DIRECT Routine 02/09/2021 10:46 AM EDT Uncontrolled type 2 diabetes mellitus with hyperglycemia, with long-term current use of insulin HC CHOLESTEROL Routine 02/09/2021 10:46 AM EDT Uncontrolled type 2 diabetes mellitus with hyperglycemia, with long-term current use of insulin HC HEMOGLOBIN A1C Routine 02/09/2021 10: 46 AM EDT Uncontrolled type 2 diabetes mellitus with hyperglycemia, with long-term current use of insulin BASIC METABOLIC PANEL Routine 02/09/2021 10:46 AM EDT Uncontrolled type 2 diabetes mellitus with hyperglycemia, with long-term current use of insulin documented in this encounter Results * C-peptide (02/09/2021 10:46 AM EDT) Pathologist [facility] C-Peptide 2.2 1.1 - 4.4 ng/mL [facility] Comment: As of January 31, 2021, C-Peptide testing has moved from the [employer] to the Shira Vincenzo. Please note the updated reference intervals. Blood specimen (specimen) 02/09/2021 10:46 AM EDT 02/09/2021 10:55 AM EDT Narrative Resulting Agency Comment Spec In Lab Bernardo Britton MD CHEMISTRY ORDERABLES [facility] [place] [address] * GAD65 Antibody Assay (02/09/2021 10:46 AM EDT) Pathologist [facility] Gad65 Ab (FEBRUARY) 0.00 <=0.02 nmol/L [facility] Comment: ADDITIONAL INFORMATION This test was developed and its performance characteristics determined by [facility] in a manner consistent with CLIA requirements. This test has not been cleared or approved by the U.S. Food and Drug Administration. Test Performed by: [facility] - [address] [address] Loan Underwriter: Hunter Juarez M.D. Ph.D.; CLIA# [id number] Blood specimen (specimen) 02/09/2021 10:46 AM EDT 02/09/2021 12:36 PM EDT Narrative Resulting Agency Comment Spec In Lab Bernardo Britton MD LAB SEND OUT ORDERAB LES [facility] [place] [address] * (ABNORMAL) Basic Metabolic Panel (non-fasting) (02/09/2021 10:46 AM EDT) Glucose 173 65 - 199 mg/dL [facility] Comment:Diabetes: >=200 mg/d L plus symptoms Blood Urea Nitrogen 26(H) 10 - 20 mg/dL [facility] Creatinine 1.23 0.80 - 1.50 mg/dL [facility] Sodium 138 135 - 145 mmol/L [facility] Potassium 4.8 3.5 - 5.0 mmol/L [facility] Comment: Please note: ??Patients with WBC >100,000 may have falsely elevated Potassium levels. ??For accurate Potassium quantification in these patients send serum separator tube (gold top) for subsequent determinations. ??Contact the Clinical Chemistry Laboratory if there are any questions. Chloride 103 98 - 107 mmol/L [facility] Carbon Dioxide 26 22 - 31 mmol/L [facility] Anion Gap 9 5 - 15 mmol/L [facility] Calcium 9.6 8.5 - 10.5 mg/dL [facility] Est Glomerular Filtration Rate 66 >=60 mL/min/1. 73 m?? [facility] Comment: This patient? s estimated glomerular filtration rate (eGFR) is between 66 mL/min/1.73 m2 (patients with less muscle mass per kg body weight) and 77 mL/min/1.73 m2 (patients with more muscle mass per kg body weight) as determined by the CKD-EPI equation. Assessment of eGFR is not appropriate when creatinine concentrations are rapidly changing. For clinical decisions where creatinine clearance will affect therapy, a 24-hour urine creatinine clearance may be advised. Assignment of CKD stage 1 - 5 for patients with an eGFR near the transition point between stages may be based on clinical assessment of muscle mass and symptoms in addition to eGFR. Blood specimen (specimen) 02/09/2021 10:46 AM EDT 02/09/2021 10:55 AM EDT Narrative Resulting Agency Comment Spec In Lab Bernardo Britton MD CHEMISTRY ORDERABLES [facility] [place] [address] * HDL/Cholesterol Profile (02/09/2021 10:46 AM EDT) Cholesterol, Total 151 mg/dL [facility] Comment: Lower Risk: <200 mg/dL Average Risk: 200-239 mg/dL Higher Risk: >ik=746 mg/dL HDL Cholesterol 52 mg/dL [facility] Comment: Males: ?? Higher Risk: <40 mg/dL Females: ?? Higher Risk: <50 mg/dL Cholesterol/HDL Ratio 2.9 ratio [facility] Chol/HDL Interpretation See Note [facility] Comment: Lipid management should be guided by a patient? s ASCVD risk, goals and preferences. ACC/AHA Guidelines recommend high intensity statin if clinical ASCVD or LDL greater than or equal to 190 mg/dL. http://AdScooturl.com/XNI-DWI-Zbcmgpcjk Measure LDL if Total Cholesterol minus HDL Cholesterol is greater than 220 mg/dL. Adults aged 40-75 with LDL 70-189 mg/dL should have their 10 year ASCVD risk estimated with the ACC/AHA ASCVD risk sample preparation supervisor http://tools.acc.org/UBCDJ-Wxxf-Hjspcnisr/ Statin should be discussed if risk greater than or equal to 7.5% in non-diabetics. With diabetes, moderate intensity statin is recommended if risk less than 7.5%, high intensity if risk greater than or equal to 7.5%. Annual lipid monitoring on statins is not necessary. Lifestyle modification is a critical component of ASCVD risk reduction. Blood specimen (specimen) 02/09/2021 10:46 AM EDT 02/09/2021 10:55 AM EDT Narrative Resulting Agency Comment Spec In Lab Bernardo Britton MD CHEMISTRY ORDERABLES Performing Organization Address [facility] Co de Phone Number [facility] [place] [address] * LDL Cholesterol, Direct (02/09/2021 10:46 AM EDT) LDL Cholesterol, Direct 95 mg/dL [facility] Comment: Lowest Risk: <100 mg/dL Lower Risk: 100-129 mg/dL Borderline High Risk: 130-159 mg/dL High Risk: 160-189 mg/dL Very High Risk: >cc=334 mg/dL Blood specimen (specimen) 02/09/2021 10:46 AM EDT 02/09/2021 10:55 AM EDT Narrative Resulting Agency Comment Spec In Lab Bernardo Britton MD CHEMISTRY ORDERABLES Performing Organization Address City/[facility]/ZIP Co de Phone Number [facility] [place] [address] * (ABNORMAL) Hemoglobin A1c (02/09/2021 10:46 AM EDT) Hemoglobin A1c 8.4(H) 4.3 - 5.6 % [facility] Comment: Reference Range: 4.3 - [...] Mellitus, Diabetes Care 2013; 36: Suppl. 1, X87-70 Estimated Average Glucose 193 mg/dL [facility] Comment: eAG equivalents for HbA1c percentages: HbA1c(%) ?eAG(mg/dL) 6.0 ?126 6.5 ?140 7.0 ?154 7.5 ?169 8.0 ?183 8.5 ?197 9.0 ?212 9.5 ?226 10.0 ? 240 Limitations: The eAG calculation has not been validated on women, individuals below 18 years old and above 70 years old, and individuals with hemoglobinopathies. Additional resources are available on the ADA website. Jon MURPHY, Carol J, Tino R, et al. ??Translating the A1C assay into estimated average glucose values. ??Diabetes Care 2008:31(8):4063-9796. Blood specimen (specimen) 02/09/2021 10:46 AM EDT 02/09/2021 10:55 AM EDT Narrative Resulting Agency Comment Spec In Lab Bernardo Britton MD CHEMISTRY ORDERABLES [facility] [place] [address] documented in this encounter Visit Diagnoses Diagnosis Uncontrolled type 2 diabetes mellitus with hyperglycemia, with long-term current use of insulin documented in this encounter Care Teams Tooling Engineer Relationship Specialty Start Date End Date Maciej Szymanski, DO [address] [place] [address] PCP - General 09/18/10 09/30/22 documented as of this encounter
--- OUTSIDE RECORDS SUMMARY | 2024-10-08 00:37 | XMS_ITS | Encounter Summary ---
Author Organization [facility] Address [facility] [place] [address] Care Team Providers Care Vendor Analyst Name Role Phone Ermias Teague APRN Primary Care Provider [phone] Encounter Details Date Type Department Care Team (Latest Contact Info) Description 10/01/2022 Travel Social History Tobacco Use Types Packs/Day [...] PM EST Office Visit Dermatology at [address] [address] Prosper Schmidt MD [address] [place] [address], [facility] DER[facility] [place], [place] [id number] 12/14/2024 2:40 PM EST Office Visit Cardiology at [address] [address] Benjie Garrison MD [facility] [place] [address] documented as of this encounter Visit Diagnoses Not on filedocumented in this encounter Care Teams Vendor Analyst Relationship Specialty Start Date End Date Ermias Teague, PETRA [address] [place] [address] PCP - General Family Medicine 10/01/22 documented as of this encounter
--- OUTSIDE RECORDS SUMMARY | 2024-10-08 00:37 | XMS_ITS | Encounter Summary ---
Author Organization [facility] [place] [address] Care Team Providers Care Teacher Selection Specialist Name Role Phone StephonMaciej cardona Primary Care Provider [phone] Reason for Visit * Reason Onset Date Comments Medication Refill Medication Refill 09/07/2021 Encounter Details Date Type Department Care Team (Late Contact Info) Description 09/04/2021 Refill Dermatology at [address] [address] Prosper Schmidt MD [address] [place] [address], [place] [address] Psoriatic arthritis Social History Tobacco Use Types [...] 3:30 PM EST Office Visit Dermatology at [address] [phone] Prosper Schmidt MD [address] [place] [address], [facility] DERMAT[facility] [place], [place] [id number] 12/14/2024 2:40 PM EST Office Visit Cardiology at [address] [place] [address] Benjie Garrison MD [facility] [place] [address] documented as of this encounter Visit Diagnoses Diagnosis Psoriatic arthritis Psoriatic arthropathy documented in this encounter Care Teams Teacher Selection Specialist Relationship Specialty Start Date End Date Maciej Szymanski DO [address] [facility] [address] [place] [address] PCP - General 09/18/10 09/30/22 documented as of this encounter
--- OUTSIDE RECORDS SUMMARY | 2024-10-08 00:37 | XMS_ITS | Encounter Summary ---
Author Organization [facility] Address [facility] [place] [address] Care Team Providers Care Motorcycle Builder Name Role Phone Stephon Maciej ORTIZ Primary Care Provider Encounter Details Date Type Department Care Team (Late st Contact Info) Description 05/22/2021 [place] [address] Chel Greenberg PA [facility] [place] [address] Social History Tobacco Use Types Packs/Day Years [...] 3:30 PM EST Office Visit [place]ermatology [place] [address] [place] [phone] Prosper Schmidt MD [address], [address] [address] 12/14/2024 2:40 PM EST Office Visit Cardiology at [address] [place] [address] Benjie Garrison MD [facility] [place] [address] documented as of this encounter Visit Diagnoses Not on filedocumented in this encounter Care Teams Motorcycle Builder Relationship Specialty Start Date End Date Maciej Szymanski DO [address] [place] [address] [address] [place] [address] PCP - General 09/18/10 09/30/22 documented as of this encounter
--- OUTSIDE RECORDS SUMMARY | 2024-10-08 00:37 | XMS_ITS | Encounter Summary ---
Author Organization [facility] Address [facility] [place] [address] Care Team Providers Care Swimming Pool Servicer Name Role Phone Maciej Szymanski DO Primary Care Provider Encounter Details Date Type Department Care Team (Latest Contact Info) Description 09/07/2021 3:00 PM EST TH Visit (TeleHealth) [place] [address] Chel Greenberg PA [facility] [place] [address] Type 2 diabetes mellitus with hyperglycemia, with long-term [...] on file documented as of this encounter Patient Instructions * Patient Instructions* Chel Greenberg PA - 09/07/2021 3:00 PM EST 1. Continue without changes to medications. 2. Will defer care to PCP for now due to insurance. 3. Return to clinic in 6mo. If you remain stable then may consider returning care to PCP in future. documented in this encounter Progress Notes * Chel Greenberg PA - 09/07/2021 3:00 PM EST Diabetes Visit Note Name: Ervin Helms : 1965 PCP: Maciej Szymanski DO Date of visit: 09/07/2021 Telehealth Documentation Due to the COVID-19 pandemic a scheduled office visit was converted to a telemedicine visit (video available). The patient provided consent for this telehealth encounter and understands standard billing practices apply. Duration of call: 35 minutes Location of patient: [address] [place] [phone] Location of provider[place] [facility] [place] Reason for visit: Ervin Helms is a 55 y.o. male with Diabetes TYPE 2 here for follow up to the [facility] endocrine clinic for diabetes services. Past medical history significant for psoriasis/psoriatic arthritis, GERD & iron deficiency anemia. Patient was last seen in this clinic 4months ago. Plan from previous visit with IDALIA Valenzuela on 05/04/21: 1. I will include interpretation of 03/14/21-03/27/21 [...] Follow up in 3mo, sooner as needed. Interim history: Pt visit switched to d/t pt exposure to COVID-19. Pt says that his sugars are doing well and his Chepe is working well. Did have COVID-19 and experienced some elevated BG with, the highest being 311, but then took Novolog and it went back down. Says he didn't have any readings up into the 400's. Since last visit his Chepe is now covered by insurance, and he is going through [employer] for his supplies. Starting October 27, has an out of pocket cost and so may need to just work with his PCP until he reaches his deductible. Diabetes Diagnosis Date: diagnosed at about age 41yo Last 3 Hemoglobin A1Cs Lab Results Component Value Date HA1C 8.4 [...] meal or high blood sugar, gives correction. Lifestyle: 24-hour diet history: 3 meals/day 0-1 snacks/day * Breakfast: Cereal * Lunch: Beef stew * Dinner: Kennedy's pie * Snacks: Banana, donut, cookies * Desserts: See above * Drinks: Coffee, diet soda, water, juice with low BG 2019QI Exercise: Active lifestyle, trying to exercise more Sleep: 8 hours/day. 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 Glucose Monitoring: Meter type: Relion and Chepe Number of Prescribed checks per day: 4x daily Number of checks completed: multiple times daily with Chepe, at least 4x Reason for needing more than 3 checks daily: prevent severe hypoglycemia and severe hyperglycemia, wide fluctuation in numbers, overnight low glucose. Meter uploaded today: yes Logbook brought to visit today: no Average Blood sugar: unknown Duration of need: lifetime Continuous glucose monitor: yes--Chepe Hypoglycemia: Awareness: Yes Warning signs: lightheaded, sweating, shaking Severe hypoglycemia in the past: no. Most recent event: intermittent, one related to not eating. 60's in the wee hours. Hyperglycemia History of DKA: no. Prescriber information: Chel Greenberg PA-C Diabetes education: Met with patient educator/piece worker? 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 . 2 adopted children, 5 grandchildren. Family history: Family History Problem Relation Age [...] Denies current diabetic foot ulcers Physical Exam: There were no vitals taken for this visit. General: physical exam deferred d/t telehealth. Labs: Medications: Medications 09/07/21 1508 Medication Sig Taking? etanercept (EnbreL SureClick) Pen Injector INJECT 1 PEN UNDER THE SKIN EVERY 7 DAYS. Yes triamcinolone (Kenalog) 0.1 % Cream Apply to areas of itching twice daily. Yes hhdfirbc-eykvpn-oaf8-D3-C-srinivasan 750-625-1,000 mg-mg-unit Tablet Take by mouth. Yes insulin aspart U-100 (NOVOLOG FLEXPEN U-100 [...] 55 y.o. male with a PMH of T2DM on oral meds, MDI insulin and using CGM to monitor glucose levels. CGM report unavailable d/t telehealth, although pt says he reviewed this with the pharmacist at his PCP office and it showed good control. No obvious adjustments to be made and pt asking to return care to PCP, at least temporarily d/t insurance coverage returning to out of pocketas of October 27. Ok to continue with PCP monitoring DM for now and pt may return in 6mo or as needed. Plan: 1. Continue without changes to medications. 2. Will defer care to PCP for now due to insurance. 3. Return to clinic in 6mo. If you remain stable then may consider returning care to PCP in future. This was a 35 minute visit spent via telehealth with patient discussing diabetes management and providing education including but not limited to information in history and plan. An additional 10 minutes was spent reviewing previous notes and labs & completing documentation. I have reviewed the plan outlined above with the patient and the patient has verbalized understanding. Chel Greenberg PA-C Department of Endocrinology [facility] documented in this encounter Plan of Treatment Upcoming Encounters Date Type Department Care Team (Late st Contact Info) Description 11/08/2024 3:30 PM EST Office Visit Dermatology at [address] [place] [address] Prosper Schmidt MD [address] [place] [address], [facility] [place] [address] 12/14/2024 2:40 PM EST Office Visit Cardiology at [address] [phone] Benjie Garrison MD [facility] [place] [address] documented as of this encounter Visit Diagnoses Diagnosis Type 2 diabetes mellitus with hyperglycemia, with long-term current use of insulin documented in this encounter Care Teams Swimming Pool Servicer Relationship Specialty Start Date End Date Maciej Szymanski DO [address] [place] [address] PCP - General 09/18/10 09/30/22 documented as of this encounter
--- OUTSIDE RECORDS SUMMARY | 2024-10-08 00:37 | XMS_ITS | Encounter Summary ---
Author Organization [facility] Address [facility] [place] [address] Care Team Providers Care Technology Sales Specialist Name Role Phone Ermias Teague APRN Primary Care Provider +1- [phone] Encounter Details Date Type Department Care Team (Late Contact Info) Description 11/03/2023 Refill Dermatology at [address] [phone] Chel Jara RN Psoriatic arthritis Social History Tobacco Use Types [...] PM EST Office Visit Dermatology at [address] [phone] Prosper Schmidt MD [address] [place] [address], [place], [place] [id number] 12/14/2024 2:40 PM EST Office Visit Cardiology at [address] [phone] Benjie Garrison MD [facility] [place] [address] documented as of this encounter Visit Diagnoses Diagnosis Psoriatic arthritis Psoriatic arthropathy documented in this encounter Care Teams Technology Sales Specialist Relationship Specialty Start Date End Date Ermias Teague APRN [address] [place] [address] PCP - General Family Medicine 10/01/22 documented as of this encounter
--- OUTSIDE RECORDS SUMMARY | 2024-10-08 00:37 | XMS_ITS | Encounter Summary ---
Author Organization [facility] Address [facility] [place] [address] Care Team Providers Care Trim Setter Name Role Phone StephonMaciej hunter Primary Care Provider Encounter Details Date Type Department Care Team (Late st Contact Info) Description 07/17/2021 Refill Dermatology at [address] [phone] Daisy Keita LPN Social History [...] 3:30 PM EST Office Visit Dermatology at [address] [phone] Prosper Schmidt MD [address] [place] [address], [facility] DERMATOLOGY [place], [place] [id number] 12/14/2024 2:40 PM EST Office Visit Cardiology at [address] [phone] Benjie Garrison MD [facility] [place] [address] documented as of this encounter Visit Diagnoses Not on filedocumented in this encounter Care Teams Trim Setter Relationship Specialty Start Date End Date Maciej Szymanski DO [address] [place] [address] PCP - General 09/18/10 09/30/22 documented as of this encounter
--- OUTSIDE RECORDS SUMMARY | 2024-10-08 00:37 | XMS_ITS | Encounter Summary ---
Author Organization [facility] Address [facility] [place] [address] Care Team Providers Care Fixed Income Trading Vice President Name Role Phone Maciej Szymanski DO Primary Care Provider Reason for Visit * Reason Comments Follow-up Encounter Details Date Type Department Care Team (Late st Contact Info) Description 10/01/2019 4:15 PM EST Office Visit Dermatology at [address] [phone] Prosper Schmidt MD [address] [place] [address], [facility] [place] [address] Psoriatic arthritis; Psoriasis Social History Tobacco Use [...] Progress Notes * Prosper Schmidt MD - 10/01/2019 4:15 PM EST Problem: 1. ??Psoriasis and psoriatic arthritis on Enbrel since November 2017 doing very well 2. ??Previous on methotrexate November 2015 through December 2017 Ervin follows for six-month check. He has [employer] insurance and is been told that his co-pay for a year for the Enbrel be $200. It is due up front before he can receive any medication he thinks. He cannotafford that. He says that once before he tried to apply for the Enbrel since program but was told that he was not eligible. He only has 1 more Enbrel 50 mg autoinjector left at home currently. Being only October 01 I suggest he call and see if he cannot get another month supply now without pain the$200 co-pay. Physical examination confirms the patient psoriasis is clear. He has no active lesions on the handsof forearms the thighs or calves. Hist his psoriatic arthritis is also well controlled Assessment and plan: Psoriasis and psoriatic arthritis, well controlled on Enbrel 50 mg using the sure click injector subcutaneously once weekly 1. Recommend that we continue Enbrel to current dosing level 50 mg subcutaneously once a week. 2. We will refill for the 6-month supply dispensed four autoinjectors for a 1 month supply with 5 refills. 3. We will contact his insurance to verify his co-pay and check with the Enbrel support system to see if he would not qualify for assistance with his $200 Enbrel yearly co-pay which he cannot afford. 4. Return to clinic here in 6 months for repeat check. Have asked him to contact the office if he does not qualify and therefore cannot afford his Enbrel any longer Cc: Maciej Szymanski DO documented in this encounter Plan of Treatment Upcoming Encounters Date Type Department Care Team (Late st Contact Info) Description 11/08/2024 3:30 PM EST Office Visit Dermatology at [address] [phone] Prosper Schmidt MD [address] [place] [address], [facility] [place] [address] 12/14/2024 2:40 PM EST Office Visit Cardiology at [address] [phone] Benjie Garrison MD [facility] [place] [address] documented as of this encounter Visit Diagnoses Diagnosis Psoriatic arthritis Psoriatic arthropathy Psoriasis Other psoriasis documented in this encounter Care Teams Fixed Income Trading Vice President Relationship Specialty Start Date End Date Maciej Szymanski DO [address] [place] [address] PCP - General 09/18/10 09/30/22 documented as of this encounter
--- OUTSIDE RECORDS SUMMARY | 2024-10-08 00:37 | XMS_ITS | Encounter Summary ---
Author Organization [facility] [place] [address] Care Team Providers Care Supervisor Ore Dressing Name Role Phone Ermias Teague PETRA Primary Care Provider +1- [phone] Encounter Details Date Type Department Care Team (Late st Contact Info) Description 11/08/2023 [place] [address] Benjie Espinosa MD [facility] [place] [address] Social History Tobacco Use Types Packs/Day Years [...] as of this encounter Progress Notes * Benjie Espinosa MD - 11/08/2023 3:59 PM EST STEMI Alert Note Index Event Data Initial Contact Date and Time: 11/08/2023 3:20 PM Referring Provider: Dr. Yi Date and Time of Presentation: 11/08/2023 3:00 PM Hospital to which patient presented: [facility] Date and Time of First Medical Contact: 11/08/2023 3:00 PM Medical History (prior to current presentation) Atrial Fibrillation/ Atrial Flutter: No Hypertension: No Dyslipidemia: No Angina: No Myocardial Infarction: No Diabetes Mellitus: Yes Prior Percutaneous Coronary Intervention: No Prior Coronary Artery Bypass Graft: No Cerebrovascular Disease: No Tobacco Use: Yes Presenting Symptoms per OSH/EMS Time of continuous symptom onset to ED presentation Estimated total time from symptom onset to treatment (PCI or thrombolytic) >4 hours: Yes Chest Pain: Yes Shortness of breath: No Syncope: No Cardiac Arrest: No ECG Date and Time Initial ED EC11/08/2023 3:10 PM Date and Time First Diagnostic ECG (can be pre-hospital or ED): 11/08/2023 3:10 PM Rhythm: Sinus EKG Interpretation(choose all that apply): Inferior ST elevation and Anterior ST depressions Meets Strict STEMI ECG Criteria New ST elevation in V2-V3 of >- 2 mm in men, or >- 1.5 mm in women: No New ST elevation of >1 mm in other contiguous leads including limb leads: Yes Evidence of Q-wave infarction: No LBBB meeting Sgarbossa criteria for STEMI: No ST depressions with prominent R wave in V2-V3 (suspected posterior infarct): No Exam at Presentation HR: 102 SBP: 138 DBP: 86 Killip class: I (no rales) CRISTAL Risk Score for STEMI Age: <65 years (0 points) Diabetes, Hypertension or Angina: Yes (1 point) Systolic BP <100 mmhg: No (0 points) Heart rate >100: Yes (2 points) Weight <67 kg (147 lbs): Yes (1 point) Anterior ST Elevation or LBBB: No (0 points) Time to treatment > 4 hours: Yes (1 point) Total Points and % 30 day mortality risk (choose one): 5 points= 12.4% Treatment Beta Elizabeth (Any): None Asprin (Any): Yes Asprin Unknown Time: Pre Hospital ASA given within 6 hours of presentation Adjunctive PLT Inhibitor: Clopidogrel 300mg Anti-thrombotic used: Unfractionated Heparin Thrombolytic: TNK(tenecteplase) Thrombolytic Dose: Full dose Contraindications to thrombolytic: Not contraindicated Plan STEMI Alert called: Yes Motor Vehicle Emissions Inspector Activated by: Revenue Field Auditor Initial Disposition: Admit Motor Vehicle Emissions Inspector documented in this encounter Plan of Treatment Upcoming Encounters Date Type Department Care Team (Late st Contact Info) Description 11/08/2024 3:30 PM EST Office Visit Dermatology at [address] [phone] Prosper Schmidt MD [address] [place] [address], [facility] [place] [address] 12/14/2024 2:40 PM EST Office Visit Cardiology at [address] [phone] Benjie Garrison MD [facility] [place] [address] documented as of this encounter Visit Diagnoses Not on filedocumented in this encounter Care Teams Supervisor Ore Dressing Relationship Specialty Start Date End Date Ermias Teague, PETRA [address] [facility] [address] [place] [address] PCP - General Family Medicine 10/01/22 documented as of this encounter
--- OUTSIDE RECORDS SUMMARY | 2024-10-08 00:37 | XMS_ITS | Encounter Summary ---
Author Organization [facility] Address [facility] [place] [address] Care Team Providers Care Patient Support Tech Name Role Phone Maciej Szymanski DO Primary Care Provider Reason for Visit * Reason Comments Follow-up Encounter Details Date Type Department Care Team (Late st Contact Info) Description 11/07/2020 4:30 PM EST Office Visit Dermatology at [address] [phone] Prosper Schmidt MD [address] [place] [address], [facility] [place] [address] Psoriatic arthritis; Psoriasis Social History Tobacco Use [...] Progress Notes * Prosper Schmidt MD - 11/07/2020 4:30 PM EST Problem: 1. ??Psoriasis and psoriatic arthritis on Enbrel since November 2017 doing very well 2. ??Previous on methotrexate November 2015 through December 2017 3. Probable scabies treated September 2020 Ervin follows up for a 6-month psoriasis check. He has been doing well. The Enbrel injections have been going well without any swelling infections or reactions. Also his scabietic infestation, suspected, resolved fairly quickly after treatment with the Elimite cream which also worked for his . Physical examination shows no dermatitis no excoriations there is no residual from the suspected scabies infestation. He has no evidence today of any stigmata of psoriasis. The elbows the knees are clear. Assessment plan: Psoriasis 1. Continue Enbrel injecting the 50 mg autoinjector pen once subcutaneously every week. Will dispense #4 with 5 refills sending this to his [facility] specialty pharmacy. 2. Recommend return to clinic another 6 months for repeat check. Suspected scabies infestation 1. Resolved 2. No further treatment necessary CC: Maciej Szymanski DO documented in this encounter Plan of Treatment Upcoming Encounters Date Type Department Care Team (Late st Contact Info) Description 11/08/2024 3:30 PM EST Office Visit Dermatology at [address] [phone] Prosper Schmidt MD [address] [place] [address], [facility] [place] [address] 12/14/2024 2:40 PM EST Office Visit Cardiology at [address] [phone] Benjie Garrison MD [facility] [place] [address] documented as of this encounter Visit Diagnoses Diagnosis Psoriatic arthritis Psoriatic arthropathy Psoriasis Other psoriasis documented in this encounter Care Teams Patient Support Tech Relationship Specialty Start Date End Date Maciej Szymanski DO [address] [place] [address] [address] [facility] 1 [place] [address] PCP - General 09/18/10 09/30/22 documented as of this encounter
--- OUTSIDE RECORDS SUMMARY | 2024-10-08 00:37 | XMS_ITS | Encounter Summary ---
[place] [address] Care Team Providers Care Speech Therapy Assistant Name Role Phone Maciej Szymanski DO Primary Care Provider Encounter Details Date Type Department Care Team (Late st Contact Info) Description 02/16/2021 Telephone [place] [phone] Ry Pelaez RN Social History Tobacco Use [...] Telephone Encounter - Ry Pelaez RN - 02/23/2021 1:26 PM EDT Left voicemail for patient that [facility] is very strict and difficult to work with on these, but that wecan try anyway. Asked that he call [employer] to see if they would be willing to submit for this anyway so we can then appeal a denial. * Telephone Encounter - Ry Pelaez RN - 02/16/2021 3:36 PM EDT Patient left voicemail that he called one of the DME companies. They told him that he needs to be injecting insulin 3 times or more daily to qualify for a CGM. He is not sure if there is any way to get around this. He is looking to our office for options. documented in this encounter Plan of Treatment Upcoming Encounters Date Type Department Care Team (Late st Contact Info) Description 11/08/2024 3:30 PM EST Office Visit Dermatology at [address] [phone] Prosper Schmidt MD [address] [facility] [place] [address] 12/14/2024 2:40 PM EST Office Visit Cardiology at [address] [phone] Benjie Garrison MD [facility] [place] [address] documented as of this encounter Visit Diagnoses Not on filedocumented in this encounter Care Teams Speech Therapy Assistant Relationship Specialty Start Date End Date Maciej Szymanski DO [address] [facility] 1 [place] [address] PCP - General 09/18/10 09/30/22 documented as of this encounter
--- OUTSIDE RECORDS SUMMARY | 2024-10-08 00:37 | XMS_ITS | Encounter Summary ---
Author Organization [facility] Address [facility] [place] [address] Care Team Providers Care Pastor Name Role Phone HoLamaikel Pope APRN Primary Care Provider +1- [phone] Encounter Details Date Type Department Care Team (Late st Contact Info) Description 11/08/2023 External [place] [address] Social History Tobacco Use Types Packs/Day Years Used Date Smoking Tobacco: Former Cigarettes Q uit: 12/27/1988 Smokeless Tobacco: Never Alcohol Use Standard Drinks/Week Comments No 0 (1 standard drink = 0.6 oz pur e alcohol) [facility] Utilities Answer Date Recorded In the past 12 months has e electric, gas, oil, or water company [...] place to sleep or slept in a skilled nursing (including now)? No 11/10/2023 DH IPV Inpatient [...] 3:30 PM EST Office Visit Dermatology at [address] [phone] Prosper Schmidt MD [address] [place] [address], [facility] [place] [address] 12/14/2024 2:40 PM EST Office Visit Cardiology at [address] [phone] Benjie Garrison MD [facility] [place] [address] documented as of this encounter Procedures Procedure Name Priority Date/Time Associated Diagnosis Comments ECG SCAN Routine 11/08/2023 3:19 PM EST documented in this encounter Results * Scan Doc: ECG (11/08/2023 3:19 PM EST) Historical Provider MD ADKINS MGR SCAN EX T ORDR/RSLT documented in this encounter Visit Diagnoses Not on filedocumented in this encounter Care Teams Pastor Relationship Specialty Start Date End Date Ermias Teague, WATCHSTANDER [address] [place] [address] PCP - General Family Medicine 10/01/22 documented as of this encounter
--- OUTSIDE RECORDS SUMMARY | 2024-10-08 00:38 | XMS_ITS | Encounter Summary ---
Author Organization [facility] Address [facility] [place] [address] Care Team Providers Care Corn Sheller Operator Name Role Phone StephonMaciej cardona Primary Care Provider Encounter Details Date Type Department Care Team (Late st Contact Info) Description 10/06/2018 Refill Dermatology at [address] [phone] Prosper Schmidt MD [address] [place] [address], [place] [address] Psoriatic arthritis Social History Tobacco Use Types [...] 3:30 PM EST Office Visit Dermatology at [address] [phone] Prosper Schmidt MD [address] [place] [address], [place] [address] 12/14/2024 2:40 PM EST Office Visit Cardiology at [address] [place] [address] Benjie Garrison MD [facility] [place] [address] documented as of this encounter Visit Diagnoses Diagnosis Psoriatic arthritis Psoriatic arthropathy documented in this encounter Care Teams Corn Sheller Operator Relationship Specialty Start Date End Date Maciej Szymasnki DO [address] [facility] [address] [place] [address] PCP - General 09/18/10 09/30/22 documented as of this encounter
--- OUTSIDE RECORDS SUMMARY | 2024-10-08 00:38 | XMS_ITS | Encounter Summary ---
Author Organization [facility] [place] [address] Care Team Providers Care Early Morning Babysitter Name Role Phone Maciej Szymanski DO Primary Care Provider Reason for Visit * Auth/Cert Specialty Diagnoses / Procedures Referred By Zenaida zuniga Referred To Contact Diagnoses barretts esophagus Prep- Proclear Procedures PRO UPPER GI ENDOSCOPY, DIAGNOSTIC EGD, UPPER GI ENDOSCOPY Referral ID Status Reason Start Date Expiration Date Visits Re quested Visits Authorized [id number] 1 1 Encounter Details Date Type Department Care Team (Late st Contact Info) Description 03/08/2019 4:30 PM EDT - 03/08/2019 5:00 PM EDT Surgery [place] [address] Raheel Pinto MD [facility] [place] [address] EGD WITH BIOPSY (WRVU 2.39) Social History Tobacco Use Types Packs/Day Years [...] Sign Reading Time Taken Comments Blood Pressure 133/84 03/08/2019 3:48 PM EDT Pulse 94 03/08/2019 3:48 PM EDT Temperature 36.6 ??C (97.9 ??F) 03/08/2019 3:48 PM ED T Respiratory Rate - - Oxygen Saturation 99% 03/08/2019 3:48 PM EDT Inhaled Oxygen Concentration - - Weight 63.5 kg (140 lb) 03/08/2019 3:48 PM EDT Height 170.2 cm (5' 7) 03/08/2019 3:48 PM EDT Body Mass Index 21.93 03/08/2019 3:48 PM EDT documented in this encounter Discharge Instructions * Discharge Instructions* Crys Loo RN - 03/08/2019 6:46 PM EDT Please call [phone] before 8pm Mon-Fri with problems, questions or concerns. If you call after 8pm or on weekends, call the Hospital at [phone] and ask to speak to the Aeronautical Engineering Officer vocational director and the cupola operator insulation will contact that person for you. * Patient Instructions* Raheel Pinto MD - 03/08/2019 6:43 PM EDT Please see Recommendations in the Provation procedure report which is documented in the procedural note in E-DH. * Attachments The following attachments cannot be sent through Care Everywhere. * EGD (Upper Endoscopy): Post-op ([place]) documented in this encounter Medications at Time of Discharge Medication Sig Dispensed Refills Start Date End Date fluticasone propionate (Flonase) 50 mcg/actuation [place], Suspension 1-2 sprays by Each Nare route daily as needed. 10/15/2015 mtgcfazv-eohmjg-yco 1-D3-C-srinivasan 750-625-1,000 mg-mg-unit Tablet Take 2 tablets by mouth 2 times daily. JARDIANCE 25 mg Tablet Take 25 mg by mouth daily. 0 01/05/2018 GERRY PEN NEEDLE 32 gauge x NeedleIndications:P [...] 2 times daily. 60 capsule 12 09/21/2012 etanercept (ENBREL SURECLICK) Pen InjectorIndications :Psoriatic arthritis Inject one sureclick pen (50 mg) subcutaneously once a week 4 Pen 5 10/06/2018 07/17/2021 insulin aspart U-100 (NOVOLOG FLEXPEN U-100 INSULIN) Insulin Pen Inject 2-5 Units subcutaneously daily. 15 mL 3 05/21/2018 12/16/2023 LANTUS SOLOSTAR Insulin Pen Inject 11 Units subcutaneously 2 times daily. 1 03/30/2017 11/11/2023 glipiZIDE (GLUCOTROL) 5 mg Tablet Take 10 mg by mouth 2 times daily. 10mg AM and 5MG night 0 11/08/2016 10/01/2022 meloxicam (MOBIC) 15 mg Tablet Take 15 mg by mouth daily. 0 11/17/2015 10/01/2022 FREESTYLE LITE STRIPS Strip 1 each 3 times daily. 0 09/02/20142023 triamcinolone (KENALOG) 0.1 % cream as needed. Reported on 12/25/2016 07/23/2013 09/27/2020 documented as of this encounter H&P Notes * Raheel Pinto MD - 03/08/2019 6:03 PM EDT Gastroenterology and Hepatology Pre-Procedure History and Physical Exam Procedure: EGD: Indication: Huang's surveillance. Patient Active Problem List Diagnosis Code ??? Psoriasis L40.9 ??? Verruca vulgaris B07.9 ??? Type II or unspecified type diabetes mellitus without mention of complication, uncontrolled E11.65 ??? GERD (gastroesophageal reflux disease) K21.9 ??? Epidermal cyst L72.0 ??? Visit for suture removal Z48.02 ??? Anemia, iron deficiency D50.9 EXAM: HEENT: Airway examined, oropharynx clear Mallampati Score: Per anesthesia LUNGS: Clear to auscultation HEART: Regular rate and rhythm, normal S1, S2 ABDOMEN: Normal bowel sounds, soft, non tender, non distended, A/P Proceed with the planned endoscopic procedure. ASA 2 - Patient with mild systemic disease with no functional limitations Sedation Plan: deep Risks and benefits of the procedure explained to the patient. Consent signed. documented in this encounter Miscellaneous Notes * Op Note - Raheel Pinto MD - 03/08/2019 6:43 PM EDT [facility] Operative Note Patient Name: Ervin Helms : [id number] MR#: [id number] Case Date: 03/08/2019 Surgeon: Surgeon(s) and Role: * Raheel Pinto MD - Primary * Cosme Granado MD - Fellow Preoperative diagnosis: barretts esophagus Prep- Proclear Postoperative diagnosis: * No post-op diagnosis entered * Procedure(s) (LRB): EGD, UPPER GI ENDOSCOPY (N/A) Anesthesia: MAC Full procedure note is documented under the Procedure section of eDH. documented in this encounter Plan of Treatment Upcoming Encounters Date Type Department Care Team (Late st Contact [facility]) Description 11/08/2024 3:30 PM EST Office Visit Dermatology at [address] [phone] Prosper Schmidt MD [address] [place] [address], [facility] [place] [address] 12/14/2024 2:40 PM EST Office Visit Cardiology at [address] [phone] Benjie Garrison MD [facility] [place] [address] [phone] (work) documented as of this encounter Procedures Procedure Name Priority Date/Time Associated Diagnosis Comments SPECIMEN TO PATHOLOGY Routine 03/08/2019 6:44 PM EDT SPECIMEN TO PATHOLOGY Routine 03/08/2019 6:44 PM EDT SURGICAL PATHOLOGY REPORT Routine 03/08/2019 6:42 PM EDT EGD WITH BIOPSY (WRVU 2.39) 03/08/2019 6:19 PM EDT barretts esophagus Prep- Proclear UPPER GI ENDOSCOPY Routine 03/08/2019 4: 43 PM EDT POCT GLUCOSE Routine 03/08/2019 4:04 PM EDT POCT FINGERSTICK GLUCOSE Routine 03/08/2019 4:00 PM EDT documented in this encounter Results * Specimen to Pathology (03/08/2019 6:44 PM EDT) AP Specimen 03/08/2019 6:44 PM EDT 03/08/2019 6:44 PM EDT Narrative [facility] - 03/08/2019 6:44 PM EDT Specimen requisition ordered. ??Separate Pathology report to follow Raheel Pinto MD PATHOLOGY/CYTOLOGY O RDERABLES Performing Organization Address [facility] Co de Phone Number [facility] [place] [address] * Specimen to Pathology (03/08/2019 6:44 PM EDT) AP Specimen 03/08/2019 6:44 PM EDT 03/08/2019 6:44 PM EDT Narrative [facility] - 03/08/2019 6:44 PM EDT Specimen requisition ordered. ??Separate Pathology report to follow Raheel Pinto MD PATHOLOGY/CYTOLOGY O RDERABLES Performing Organization Address [facility]/ZIP Co de Phone Number [facility] [place] [address] * Surgical Pathology Report (03/08/2019 6:42 PM EDT) Final Diagnosis [id number] ? Location: 4T; EN06; A The signing pathologist has (i) examined the relevant preparation(s) for the specimen(s) and (ii) rendered or confirmed the diagnosis(es). . ? Addendum ADDENDUM DISCUSSION A WATS 3D report ( dated 03/16/2019) on specimen C has been received. For the full text of the WATS 3D report(s), please refer to Non- Documentation Pathology in the electronic health record (eDH). Electronically signed by: ??Abner Henao MD Verified: ??03/18/2019 ?Pathologist Performed at: ??-[facility] Dept. of Pathology, [place], [place] ?Surgical Pathology DIAGNOSIS A - Esophagus 39cm to 37cm, biopsy: - Huang's esophagus, negative for dysplasia. B - Esophagus 36cm to 35cm, biopsy: - ??Huang's esophagus, negative for dysplasia. C - WATS SPECIMEN - Esophagus, distal GE junction: - This specimen has been sent for WATS proprietary test at the request of the ordering provider. Results will be reported in an addendum. Electronically signed by: ??Abner Henao MD Verified: ??03/11/2019 ?Pathologist Performed at: ??-[facility] Dept. of Pathology, [place], [place] CLINICAL INFORMATION Specimen Submitted: A - Esophagus 39cm to 37cm B - Esophagus 36cm to 35cm C - WATS SPECIMEN - Esophagus, distal GE junction Clinical History and Diagnosis: Patient with Huang's esophagus. Surveillance EGD SPECIMEN PROCESSING A - Labeled/Fixative: Esophagus 39-37 cm, formalin. Quantity/Size: Multiple, 0.2-0.3 cm. Tissue Description: Soft, crawford-pink tissues. Sections/Processi ng: Submitted en toto ??in 2 cassettes labeled A1-A2. B - Labeled/Fixative: Esophagus 36-35 cm, formalin. Quantity/Size: Four, 0.2 cm. Tissue Description: Soft, pink-red tissues. Sections/Processi ng: Submitted en toto ??in 1 cassette labeled B1. ??jmb 03/18/2019 10:21 AM EDT [facility] GI Biopsy 03/08/2019 6:42 PM EDT 03/08/2019 6:42 PM EDT GI Biopsy 03/08/2019 6:42 PM EDT 03/08/2019 6:42 PM EDT Consult Case 03/08/2019 6:42 PM EDT 03/08/2019 6:42 PM EDT Raheel Pinto MD PATHOLOGY/CYTOLOGY O RDERAJOEL [facility] [place] [address] * UPPER GI ENDOSCOPY (03/08/2019 4:43 PM EDT) UPPER GI ENDOSCOPY [facility] Endoscopy Procedure Date: 03/08/2019 4:43 PM ? Patient Name: Ervin Helms ? Date of : 1965 ? Age: 53 ? Order #: [id number] ? Instrument Name: [id number] ? Procedure: ? Upper GI endoscopy Indications: ? Follow-up of Huang's esophagus Providers: ? Raheel Pinto MD, Tanja Ghosh ? Millie Hoang, ? Tier Lift Operator Referring : ?Maciej Szymanski, DO Medicines: ? Monitored Anesthesia Care Complications: ? No immediate complications. Procedure: ? Pre-Anesthesia Assessment: ? - Prior to the procedure, a History ? and Physical was performed, and ? patient medications, allergies and ? sensitivities were reviewed. The ? patient's tolerance of previous ? anesthesia was reviewed. ? - The risks and benefits of the ? procedure and the sedation options ? and risks were discussed with the ? patient. All questions were answered ? and informed consent was obtained. ? - Patient identification and proposed ? procedure were verified prior to the ? procedure by the physician, the ? nurse, the html web developer and the ? nursing technician. The procedure was ? verified in the pre-procedure area in ? the procedure room. ? - Pre-procedure physical examination ? revealed no contraindications to ? sedation. ? - ASA Grade Assessment: III - A ? patient with severe systemic disease. ? The procedure, indications, benefits, ? risks and alternatives were explained ? to the patient. Specifically ? discussed were potential ? complications including, but not ? limited to, bleeding, perforation, ? infection, missing a cancer, and ? adverse medication reactions. The ? Endoscope was introduced through the ? mouth, and advanced to the second ? part of duodenum. The patient ? tolerated the procedure well. The ? upper GI endoscopy was accomplished ? without difficulty. The patient ? tolerated the procedure well. ? Findings: ? The esophagus and gastroesophageal junction were ? examined with white light and narrow band imaging ? (NBI) from a forward view and retroflexed position. ? There were esophageal mucosal changes consistent with ? long-segment Huang's esophagus. These changes ? involved the mucosa at the upper extent of the ? gastric folds (39 cm from the incisors) extending to ? the Z-line (35 cm from the incisors). Circumferential ? salmon-colored mucosa was present from 36 to 39 cm ? and multiple tongues of salmon-colored mucosa were ? present from 35 to 36 cm. The maximum longitudinal ? extent of these esophageal mucosal changes was 4 cm ? in length. Mucosa was biopsied with a cold forceps ? for histology randomly at intervals of 2 cm from 35 ? to 39 cm from the incisors. A total of 2 specimen ? bottles were sent to pathology. Wide Area ? Transepithelial Sampling (WATS-3D [place] Biopsy) was ? performed for histology and samples sent for ? Computer-Assisted 3-Dimensional analysis. ? A 2 cm hiatal hernia was present. ? The exam of the stomach was otherwise normal. ? The examined duodenum was normal. ? Moderate Sedation: ? Not applicable - See Anesthesia documentation Impression: ?- Esophageal mucosal changes ? consistent with long-segment ? Huang's esophagus (C3M4). Biopsied. ? WATS-3D brush biopsy specimens ? obtained. ? - 2 cm hiatal hernia. Recommendation: ?- Discharge patient to home (with ? escort). ? - Resume previous diet. ? - Continue present medications. ? - Await pathology results. ? - Repeat upper endoscopy in 3 years ? for surveillance based on pathology ? findings. ? Attending Participation: ? I was present and participated during the entire ? procedure, including non-nicholson portions. ? Raheel Pinto MD 03/08/2019 6:51:28 PM This report has been signed electronically. Number of Addenda: 0 Note Initiated On: 03/08/2019 4:43 PM PROVATION 03/08/2019 4:43 PM EDT Maciej Szymanski DO GENERAL SURGICAL ORD ERABLES PROVATION * (ABNORMAL) POCT Glucose (03/08/2019 4:04 PM EDT) Glucose, POC 208(H) 65 - 199 mg/dL [facility] Comment: Supplemental ranges: <140 mg/dL before meals <180 mg/dL all other times of the day Blood specimen (specimen) 03/08/2019 4:04 PM EDT 03/08/2019 4:04 PM EDT Raheel Pinto MD POINT OF CARE TEST O RDERABLES [facility] [place] [address] * (ABNORMAL) POCT Fingerstick Glucose (03/08/2019 4:00 PM EDT) Glucose, POC 208(A) 60 - 199 mg/dl 03/08/2019 4:00 PM EDT Raheel Pinto MD POINT OF CARE TEST O RDERABLES documented in this encounter Visit Diagnoses Not on filedocumented in this encounter Administered Medications Inactive Administered Medications - up to 3 most recent administrations Medication Order MAR Action Action Date Dose Rate Site lactated ringers infusion 100 mL/hr, Intravenous, CONTINUOUS, Starting on Fri03/08/19 at 1615, Until Fri03/08/19 at 1917, Endoscopy (Day of Procedure) New Bag 03/08/2019 4:00 PM EDT 100 mL/hr 100 mL/hr documented in this encounter Active and Recently Administered Medications Times are shown in EDT. Continuous Medication Order 03/06/2019 03/07/2019 03/08/2019 lactated ringers infusion (CANCELED) 100 mL/hr, Intravenous, CONTINUOUS, Starting on Fri03/08/19 at 1615, Until Fri03/08/19 at 1917, Endoscopy (Day of Procedure) 1600 (New Bag - Prov ider: Chelsea Alba RN) documented in this encounter Care Teams Early Morning Babysitter Relationship Specialty Start Date End Date Maciej Szymanski DO [address] [place] [address] [address] [place] [address] PCP - General 09/18/10 09/30/22 documented as of this encounter
--- OUTSIDE RECORDS SUMMARY | 2024-10-08 00:38 | XMS_ITS | Encounter Summary ---
Author Organization [facility] [place] [address] Care Team Providers Care Arch Pad Cementer Name Role Phone Stephon Maciej ORTIZ Primary Care Provider Reason for Visit * Reason Comments Medication Refill Encounter Details Date Type Department Care Team (Late st Contact Info) Description 03/11/2019 Refill Dermatology at [address] [phone] Prosper Schmidt MD [address] [place] [address], [place] [address] Psoriatic arthritis Social History Tobacco Use Types [...] 3:30 PM EST Office Visit Dermatology at [address] [phone] Prosper Schmidt MD [address] [place] [address], [place] [address] 12/14/2024 2:40 PM EST Office Visit Cardiology at [address] [place] [phone] Benjie Garrison MD [facility] [place] [address] documented as of this encounter Visit Diagnoses Diagnosis Psoriatic arthritis Psoriatic arthropathy documented in this encounter Care Teams Arch Pad Cementer Relationship Specialty Start Date End Date Maciej Szymanski DO [address] [place] [address] PCP - General 09/18/10 09/30/22 documented as of this encounter
--- OUTSIDE RECORDS SUMMARY | 2024-10-08 00:38 | XMS_ITS | Encounter Summary ---
Author Organization [facility] [place] [address] Care Team Providers Care Round Corner Cutter Operator Name Role Phone Stephon Maciej ORTIZ Primary Care Provider Reason for Visit * Reason Comments Medication Refill Encounter Details Date Type Department Care Team (Late Contact Info) Description 10/10/2018 Refill Dermatology at [address] [phone] Prosper Schmidt MD [address] [place] [address], [place] [address] Psoriatic arthritis Social History Tobacco Use Types [...] PM EST Office Visit Dermatology at [address] [phone] Prosper Schmidt MD [address] [place] [address], [place] [address] 12/14/2024 2:40 PM EST Office Visit Cardiology at [address] [place] [phone] Benjie Garrison MD [facility] [place] [address] documented as of this encounter Visit Diagnoses Diagnosis Psoriatic arthritis Psoriatic arthropathy documented in this encounter Care Teams Round Corner Cutter Operator Relationship Specialty Start Date End Date Maciej Szymanski DO [address] [place] [address] PCP - General 09/18/10 09/30/22 documented as of this encounter
--- OUTSIDE RECORDS SUMMARY | 2024-10-08 00:38 | XMS_ITS | Encounter Summary ---
Author Organization [facility] Address [facility] [place] [address] Care Team Providers Care Packer Operator Automatic Name Role Phone Maciej Szymanski DO Primary Care Provider Encounter Details Date Type Department Care Team (Late st Contact Info) Description 10/14/2017 2:56 PM EST - 10/14/2017 11:59 PM [facility] Hospital Encounter XRay at [address] [place] [phone] Ayde Malin, [facility] [place] [address] Psoriatic arthritis Discharge Disposition: Home Social History Tobacco Use Types Packs/Day Years Used Date Smoking Tobacco: Former Cigarettes 0.3 5 0 12/28/1983 - 12/27/1988 Smokeless Tobacco: Never Alcohol Use Standard [...] End Date fluticasone propionate (Flonase) 50 mcg/actuation [place], Suspension 1-2 sprays by Each Nare route daily as needed. 10/15/2015 GERRY PEN NEEDLE 32 gauge x NeedleIndications:P [...] 2 times daily. 60 capsule 12 09/21/2012 JARDIANCE 10 mg Tablet Take 10 mg by mouth daily. 09/22/2017 01/20/2018 LANTUS SOLOSTAR Insulin Pen Inject 11 Units [...] 07/23/2013 09/27/2020 documented as of this encounter Plan of Treatment Upcoming Encounters Date Type Department Care Team (Late st Contact Info) Description 11/08/2024 3:30 PM EST Office Visit Dermatology at [address] [phone] Prosper Schmidt MD [address] [place] [address], [facility] DERMATOLOGY [place], [place] [id number] 12/14/2024 2:40 PM EST Office Visit Cardiology at [address] [phone] Benjie Garrison MD [facility] [place] [address] documented as of this encounter Procedures Procedure Name Priority Date/Time Associated Diagnosis Comments XR CERVICAL SPINE 2 OR 3 VIEWS Routine 10/14/2017 3:22 PM EST Psoriatic arthritis documented in this encounter Results * XR Cervical Spine 2 Or 3 Views (10/14/2017 3:22 PM EST) Anatomical Region Laterality Modality C-spine N/A Digital Radiogra phy Impressions 10/14/2017 4:56 PM EST 1. ??No radiographic evidence of spondyloarthropathy. 2. ??Multilevel disc degenerative changes and facet arthropathy as above. I have personally reviewed the image(s) and the residents interpretation and agree with the findings, Gayla Beckford at 10/14/2017 4:56 PM Narrative 10/14/2017 4:56 PM EST EXAMINATION: XR CERVICAL SPINE 2 OR 3 VIEWS CLINICAL HISTORY: pt ??with neck pain, has psoriatic arthritis but also severe scoliosis pls assess for anl TECHNIQUE: AP and lateral radiographs of the cervical spine. COMPARISON: None FINDINGS: There is mild straightening of the normal lordotic curvature. Prevertebral soft tissues are normal. There are multilevel disc degenerative changes with disc space narrowing, endplate irregularity and sclerosis, and marginal osteophyte formation predominantly at C5-T1. Bilateral facet and uncovertebral arthropathy is present at C2-C6. Partially visualized spinal hardware is noted on the AP view. Likely clothing material overlies the RIGHT lower neck area. Procedure Note Gayla Beckford MD - 10/14/2017 EXAMINATION: XR CERVICAL SPINE 2 OR 3 VIEWS CLINICAL HISTORY: pt with neck pain, has psoriatic arthritis but alsosevere scoliosis pls assess for anl TECHNIQUE: AP and lateral radiographs of the cervical spine. COMPARISON: None FINDINGS: There is mild straightening of the normal lordotic curvature. Prevertebralsoft tissues are normal. There are multilevel disc degenerative changes withdisc space narrowing, endplate irregularity and sclerosis, and marginalosteophyte formation predominantly at C5-T1. Bilateral facet and uncovertebralarthropathy is present at C2-C6. Partially visualized spinal hardware is noted on theAP view. Likely clothing material overlies the RIGHT lower neck area. IMPRESSION 1. No radiographic evidence of spondyloarthropathy. 2. Multilevel disc degenerative changes and facet arthropathy as above. I have personally reviewed the image(s) and the residents interpretationand agree with the findings, Gayla Beckford at 10/14/2017 4:56 PM Ayde Malin DO IM DX ORDERABLES documented in this encounter Visit Diagnoses Diagnosis Psoriatic arthritis Psoriatic arthropathy documented in this encounter Care Teams Packer Operator Automatic Relationship Specialty Start Date End Date Maciej Szymanski DO [address] [place] [address] PCP - General 09/18/10 09/30/22 documented as of this encounter
--- OUTSIDE RECORDS SUMMARY | 2024-10-08 00:38 | XMS_ITS | Encounter Summary ---
Author Organization [facility] Address [facility] [place] [address] Care Team Providers Care Dowel Sander Operator Name Role Phone Maciej Szymanski DO Primary Care Provider Encounter Details Date Type Department Care Team (Late st Contact Info) Description 03/17/2019 External [place] [address] Provider, Scanning Social History Tobacco Use Types Packs/Day Years [...] 3:30 PM EST Office Visit Dermatology at [address] [place] [address] Prosper Schmidt MD [address] [facility], [address] [place] DERMATOLOGY [place], [place] [phone] 12/14/2024 2:40 PM EST Office Visit Cardiology at [address] [place] [address] Benjie Garrison MD [facility] [place] [address] documented as of this encounter Procedures Procedure Name Priority Date/Time Associated Diagnosis Comments SURGICAL PATHOLOGY SCAN Routine 03/17/2019 documented in this encounter Results * Scan Doc: Surgical Pathology (03/17/2019) Raheel Pinto MD MEDIA MGR SCAN EXT O RDR/RSLT documented in this encounter Visit Diagnoses Not on filedocumented in this encounter Care Teams Dowel Sander Operator Relationship Specialty Start Date End Date Maciej Szymanski DO [address] [place] [address] [address] [place] [address] PCP - General 09/18/10 09/30/22 documented as of this encounter
--- OUTSIDE RECORDS SUMMARY | 2024-10-08 00:38 | XMS_ITS | Encounter Summary ---
Author [place] [address] Care Team Providers Care Tow Feeder Name Role Phone Stephon Maciej ORTIZ Primary Care Provider [phone] Encounter Details Date Type Department Care Team (Latest Contact Info) Description 07/22/2017 12:00 PM EDT Laboratory Appointment Lab [address] [place] [phone] Type 2 diabetes mellitus without complication, without long-term current use of insulin Social History [...] 3:30 PM EST Office Visit Dermatology at [address] [place] [phone] Prosper Schmidt MD [address] [facility], [place] [address] 12/14/2024 2:40 PM EST Office Visit Cardiology at [address] [place] [phone] Benjie Garrison MD [facility] [place] [address] documented as of this encounter Procedures Procedure Name Priority Date/Time Associated Diagnosis Comments CREATININE Routine 07/22/2017 12:31 PM EDT Type 2 diabetes mellitus without complication, without long-term current use of insulin HEMOGLOBIN A1C Routine 07/22/2017 12:31 PM EDT Type 2 diabetes mellitus without complication, without long-term current use of insulin U ALBUMIN/CRE RATIO Routine 07/22/2017 1 2:28 PM EDT Type 2 diabetes mellitus without complication, without long-term current use of insulin documented in this encounter Results * (ABNORMAL) Hemoglobin A1c (07/22/2017 12:31 PM EDT) Pathologist [facility] Hemoglobin A1c 8.7(H) 4.3 - 5.6 % [facility] Comment: Reference Range: 4.3 - [...] 36: Suppl. 1, S67-74 Estimated Average Glucose 203 mg/dL [facility] Comment: eAG equivalents for HbA1c percentages: [...] into estimated average glucose values. ??Diabetes Care 2008:31(8):3897-5958. Blood specimen (specimen) 07/22/2017 12:31 PM EDT 07/22/2017 12:36 PM EDT Narrative Resulting Agency Comment Spec In Lab Bernardo Britton MD CHEMISTRY ORDERABLES [facility] [place] [address] * (ABNORMAL) Creatinine (07/22/2017 12:31 PM EDT) [facility] Creatinine 1.33 0.80 - 1.50 mg/dL [facility] Comment: Please note that the pediatric reference intervals supplied above were not validated at [facility]. Results from pediatric patients should be interpreted in conjunction to the patient's age, height and muscle mass. Est Glomerular Filtration Rate 57(L) >=60 [facility] Comment: This estimated GFR (eGFR) value was calculated using the MDRD equation which has been validated on patients between the ages of 18 and 70. The MDRD should not be used to assess kidney function in patients < 18 years of age or in patients with extremes of body mass, or in patients with acute kidney failure. This value should be multiplied by 1.2 for patients. For further information please copy and paste the following links into your internet browser. [email or web address] [email or web address] Blood specimen (specimen) 07/22/2017 12:31 PM EDT 07/22/2017 12:36 PM EDT Narrative Resulting Agency Comment Spec In Lab Bernardo Britton MD CHEMISTRY ORDERABLES Performing Organization Address City/[facility]/ZIP Co de Phone Number [facility] [place] [address] * U Albumin/Cre Ratio (07/22/2017 12:28 PM EDT) Albumin / Creatinin Ratio, Urine Not Calculated 0 - 29 mcg/mg Cr [facility] Comment: Reference Ranges: <30 mcg/mg: [...] 2, 357? 362 Albumin, Urine <3.0 mg/L [facility] Creatinine, Urine 76 mg/dL [facility] Urine specimen (specimen) 07/22/2017 12:28 PM EDT 07/22/2017 12:32 PM EDT Narrative Resulting Agency Comment Spec In Lab Bernardo Britton MD URINE ORDERABLES Performing Organization Address City/[facility]/ZIP Co de Phone Number [facility] [place] [address] documented in this encounter Visit Diagnoses Diagnosis Type 2 diabetes mellitus without complication, without long-term current use of insulin documented in this encounter Care Teams Tow Feeder Relationship Specialty Start Date End Date Maciej Szymanski DO [address] [place] [address] PCP - General 09/18/10 09/30/22 documented as of this encounter
--- OUTSIDE RECORDS SUMMARY | 2024-10-08 00:38 | XMS_ITS | Encounter Summary ---
Author Organization [facility] Address [facility] [place] [address] Care Team Providers Care Plasterer Foreman Name Role Phone Maciej Szymanski DO Primary Care Provider Reason for Visit * Reason Comments Diabetes Encounter Details Date Type Department Care Team (Late st Contact Info) Description 01/20/2018 2:00 PM EDT Office [place] [address] Bernardo Britton MD [facility] [place] [place] [address] Type 2 diabetes mellitus without complication, with long-term current use of insulin Social [...] Reading Time Taken Comments Blood Pressure 116/72 01/20/2018 2:25 PM EDT Pulse 90 01/20/2018 2:25 PM EDT Temperature - - Respiratory Rate - - Oxygen Saturation - - Inhaled Oxygen Concentration - - Weight 57.8 kg (127 lb 6.4 oz) 01/20/2018 2:25 P M EDT Height 172.7 cm (5' 8) 01/20/2018 2:25 PM EDT Body Mass Index 19.37 01/20/2018 2:25 PM EDT documented in this encounter Patient Instructions * Patient Instructions* Bernardo Britton MD - 01/20/2018 2:00 PM EDT I recommended 12 twice a day of lantus, continue all the other 'Looking for a fastin gglucose of 90-120 documented in this encounter Progress Notes * Bernardo Britton MD - 01/20/2018 2:00 PM EDT ?? Year of diagnosis: 2008 Regimen __x__ oral agents only ____ basal insulin ____ basal and meal insulin/pump Diagnosis codes 250.03 E10.9 ___ Type 1 250.02 E11.9 ____Type 2 E38.9, E84.8 ___ CFRD Glucose test strip brand: freestyle lite Number of Tests prescribed per day _x__ 2 ___ 3 ___ 4 ___ 5-8 ___>8 Prescriber: _ JEREMIE Britton MD _ASHWIN Taylor _ Zeeshan Rider MD _ Rajat Gonzales MD _ Luann Boone MD Justification for more than 3 tests a day ____ prevent severe hypoglycemia ____ prevent severe hyperglycemia ____ widely fluctuating blood sugars ____ overnight hypoglycemia Duration of need ___ lifetime until ___/___/___ ?? From Jun 2017 Virgen DIABETES REGIMEN: Lantus, he has resumed taking, 8 units twice a day. Glipizide 5 mg, 2 tablets twice a day. Invokana 300 mg daily. Metformin 1000 mg twice a day. Regimen Lantus, he has resumed taking, 10 units twice a day. Glipizide 5mg, 2 tablets twice a day. Jardiance 20mg daily., will be 25 Metformin 1000 mg twice a day. Home glucose monitoring: Recommended frequency tod Results fbs under 150 Under 150 rest of day Episodes of hypoglycemia Warning signs: mario triana Frequency of self treated episodes: rare Frequency of episodes needing assistance none Dietary plan: 24 hour diet recall: Breakast wheaties AM snack none Lunch Community lunch - beef stew, mac and cheese and raspberrie square Afternoon snack Dinner [facility] [place] After dinner snack Exercise routine Walks a lot for work, gym occasionally, home weights Preferred exercise Frequency Daily Diabetes complications review eyes No retinopathy feet NO Abnormal shape NO Symptoms NO Foot ulcers: NO Prior amputations Overall risk of foot problems Low Medium High NO Uses prescription Inserts Shoes kidneys none Autonomic neuropathies : NO Early satiety /nausea (gastroparesis) NO Problems emptying bladder NO Unable to detect low sugars Persistent rapid heartrate tachycardia NO Impotence cardiac NO chest pain on exertion NO shortness of breath on 1 flight of stairs NO Shortness of breath at rest NO history of Cardiac stent Cardiac bypass surgery Congestive heart failure Peripheral vascular disease: Neck arteries (carotids) Leg arterieis Stroke Diabetes preventative services last eye exam:2017 last urine protein measurement 2017 last kidney function test (creatinine) 2016 eGFR 57 last cholesterol Panel: LDL 88 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 etanercept (ENBREL SURECLICK) Pen Injector, Inject 50 mg subcutaneously once a week., Disp: 12 Pen, Rfl: 2 ??? GERRY PEN NEEDLE 32 gauge x 5/32 Needle, USE TWICE DAILY, Disp: , Rfl: 0 ??? JARDIANCE 10 mg Tablet, Take 10 mg by mouth daily., Disp: , Rfl: ??? methotrexate 2.5 mg Tablet, Take six (6)tablets by mouth every week (15 mg), Disp: 78 tablet, Rfl: 0 ??? LANTUS SOLOSTAR Insulin Pen, Inject 10 Units subcutaneously 2 times daily., Disp: , Rfl: 1 ??? folic acid (FOLVITE) 1 mg Tablet, Take 1 tablet by mouth every day except day of MTX dosing, Disp: 90 tablet, Rfl: 3 ??? glipiZIDE (GLUCOTROL) 5 mg Tablet, Take 10 mg by mouth 2 times daily., Disp: , Rfl: 0 ??? meloxicam (MOBIC) 15 mg Tablet, Take 15 mg by mouth daily., Disp: , Rfl: 0 ??? metFORMIN (GLUCOPHAGE) 1,000 mg Tablet, Take 1,000 mg by mouth 2 times daily., Disp: , Rfl: 0 ??? FREESTYLE LITE STRIPS Strip, 1 each 2 times daily., Disp: , Rfl: 0 ??? NOVOFINE 32 32 x 1/4 Needle, Inject 1 each subcutaneously 2 times daily. Reported on 12/25/2016, Disp: , Rfl: 0 ??? ascorbic acid (VITAMIN C) 250 mg tablet, Take 250 mg by mouth 2 times daily., Disp: , Rfl: ??? loratadine (CLARITIN) 10 mg tablet, Take 10 mg by mouth daily., Disp: , Rfl: ??? omeprazole (PRILOSEC) 20 mg capsule, Take 1 capsule by mouth 2 times daily., Disp: 60 capsule, Rfl: 12 ??? JARDIANCE 25 mg Tablet, Take 25 mg by mouth daily., Disp: , Rfl: 0 ??? triamcinolone (KENALOG) 0.1 % cream, as needed. Reported on 12/25/2016, Disp: , Rfl: BP 116/72 Pulse 90 Ht 172.7 cm (5' 8) Wt 57.8 kg (127 lb 6.4 oz) BMI 19.37 kg/m2 appearance: wt Change eyes: no retinopathy seen by green light ext: no pitting edema feet: shape is normal skin is normal nails are not mycotic pulses in feet : dorsalis pedis-yes posterior tibial-yes neuro: gait is normal appreciation of 10 g of pressure is present Recent Results (from the past 24 hour(s)) Hemoglobin A1c Result Value Ref Range Hemoglobin A1C 8.5 (H) 4.3 - 5.6 % Est Avg Gluc 197 mg/dL 1) DM2 - Mr Helms had better control one year ago. Our goal for him is an HA1c under 7.5 % as he was last year. It appears that he has developed insulin deficiency. We will maximize the dose of glargine to get an FBS under 120 consistently - if this does not work, the we will need to use meal insulins. 2) prevention - his BP is well controlled, he has had A flu shot but not yet prevnar. Will recheck cholesterol status and micral on next visit documented in this encounter Plan of Treatment Upcoming Encounters Date Type Department Care Team (Late st Contact Info) Description 11/08/2024 3:30 PM EST Office Visit Dermatology at [address] [address] Prosper Schmidt MD [address] [place] [address], [facility] [place] [address] 12/14/2024 2:40 PM EST Office Visit Cardiology at [address] [address] Benjie Garrison MD [facility] [place] [address] documented as of this encounter Results * U Albumin/Cre Ratio (05/21/2018 3:26 PM EDT) Albumin / Creatinin Ratio, Urine Not Calculated 0 - 29 mcg/mg Cr [facility] Comment: Reference Ranges: <30 mcg/mg: [...] 2, 357? 362 Albumin, Urine <3.0 mg/L [facility] Creatinine, Urine 59 mg/dL [place] RY [facility] Urine specimen (specimen) 05/21/2018 3:26 PM EDT 05/21/2018 3:56 PM EDT Narrative Resulting Agency Comment Spec In Lab Bernardo Britton MD URINE ORDERABLES Performing Organization Address [facility] Co de Phone Number [facility] [place] [address] * LDL Cholesterol, Direct (05/21/2018 3:20 PM EDT) LDL Cholesterol, Direct 89 mg/dL [facility] Comment: Lowest Risk: <100 mg/dL Lower Risk: 100-129 mg/dL Borderline High Risk: 130-159 mg/dL High Risk: 160-189 mg/dL Very High Risk: >ia=185 mg/dL Blood specimen (specimen) 05/21/2018 3:20 PM EDT 05/21/2018 3:27 PM EDT Narrative Resulting Agency Comment Spec In Lab Bernardo Britton MD CHEMISTRY ORDERABLES Performing Organization Address [facility] Co de Phone Number [facility] [place] [address] * (ABNORMAL) Hemoglobin A1c (05/21/2018 3:20 PM EDT) Hemoglobin A1c 8.2(H) 4.3 - 5.6 % [facility] Comment: Reference Range: 4.3 - 5.6% 5.7 - 6.4% - Increased Risk of Developing Diabetes Mellitus >=6.5% - Consistent with diagnosis of Diabetes Mellitus In the absence of hyperglycemia (i.e. plasma glucose > 200 mg/dL) or classic symptoms of hyperglycemia a repeat measurement of HbA1c should be performed on a separate sample to confirm the diagnosis. Diagnosis and Classification of Diabetes Mellitus, Diabetes Care 2013; 36: Suppl. 1, E58-49 Estimated Average Glucose 189 mg/dL [facility] Comment: eAG equivalents for [...] into estimated average glucose values. ??Diabetes Care 2008:31(8):9842-6790. Blood specimen (specimen) 05/21/2018 3:20 PM EDT 05/21/2018 3:27 PM EDT Narrative Resulting Agency Comment Spec In Lab Bernardo Britton MD CHEMISTRY ORDERABLES Performing Organization Address City/State/[facility] Co de Phone Number [facility] [place] [address] documented in this encounter Visit Diagnoses Diagnosis Type 2 diabetes mellitus without complication, with long-term current use of insulin documented in this encounter Care Teams Plasterer Foreman Relationship Specialty Start Date End Date Maciej Szymanski DO [address] [place] [address] PCP - General 09/18/10 09/30/22 documented as of this encounter
--- OUTSIDE RECORDS SUMMARY | 2024-10-08 00:38 | XMS_ITS | Encounter Summary ---
Author Organization [facility] Address [facility] [place] [address] Care Team Providers Care Hay Chopper Name Role Phone StephonMaciej hunter Primary Care Provider [phone] Encounter Details Date Type Department Care Team (Late st Contact Info) Description 06/13/2017 Refill Dermatology at [address] [address] Daisy Keita LPN Social History [...] 3:30 PM EST Office Visit Dermatology at [address] [address] Prosper Schmidt MD [address] [place] [address], [facility] DERMAT[facility]Y [place], [place] [address] 12/14/2024 2:40 PM EST Office Visit Cardiology at [address] [address] Benjie Garrison MD [facility] [place] [address] documented as of this encounter Visit Diagnoses Not on filedocumented in this encounter Care Teams Hay Chopper Relationship Specialty Start Date End Date Maciej Szymanski DO [address] [place] [address] PCP - General 09/18/10 09/30/22 documented as of this encounter
--- OUTSIDE RECORDS SUMMARY | 2024-10-08 00:38 | XMS_ITS | Encounter Summary ---
Author Organization [facility] Address [facility] [place] [address] Care Team Providers Care Line Supervisor Name Role Phone Stephon Maciej ORTIZ Primary Care Provider [phone] Encounter Details Date Type Department Care Team (Latest Contact Info) Description 06/03/2018 2:56 PM EDT - 06/03/2018 11:59 PM EDT Hospital Encounter XRay at [address] [place] [address] Jose Calixto MD [facility] [place] [address] Ganglion cyst of wrist, left Discharge Disposition: Home Social History Tobacco Use [...] End Date fluticasone propionate (Flonase) 50 mcg/actuation [place], Suspension 1-2 sprays by Each Nare route daily as needed. 10/15/2015 JARDIANCE 25 mg Tablet Take 25 mg [...] 2 times daily. 60 capsule 12 09/21/2012 insulin aspart U-100 (NOVOLOG FLEXPEN U-100 INSULIN) Insulin Pen Inject 2-5 Units subcutaneously daily. 15 mL 3 05/21/2018 12/16/2023 etanercept (ENBREL SURECLICK) Pen InjectorIndications :Psoriatic arthritis Inject 50 mg subcutaneously once a week. 12 Pen 2 11/06/2017 07/16/2018 LANTUS SOLOSTAR Insulin Pen Inject 11 Units [...] PM EST Office Visit Dermatology at [address] [place] [phone] Prosper Schmidt MD [address] [facility], [address] [place] [address] 12/14/2024 2:40 PM EST Office Visit Cardiology at [address] [place] [phone] Benjie Garrison MD [facility] [place] [address] documented as of this encounter Procedures Procedure Name Priority Date/Time Associated Diagnosis Comments XR WRIST 3 VIEWS LEFT Routine 06/03/2018 3:07 PM EDT Ganglion cyst of wrist, left documented in this encounter Results * XR Wrist Complete Min 3 views Left (Generic) (06/03/2018 3:07 PM EDT) Anatomical Region Laterality Modality Left Digital Radiogra phy Impressions 06/03/2018 3:21 PM EDT NO ACUTE FINDINGS. IF ACUTE DISTAL RADIUS FRACTURE OR OCCULT SCAPHOID FRACTURE IS SUSPECTED AND RADIOGRAPHS ARE NORMAL, CASTING AND REPEAT X-RAYS IN 10-14 DAYS ARE RECOMMENDED. MRI WRIST WITHOUT IV CONTRAST IS ALSO AN OPTION. (ACR Appropriateness Criteria: Acute Hand And Wrist Trauma, 2013) Narrative 06/03/2018 3:21 PM EDT EXAMINATION: XR WRIST COMPLETE MIN 3 VIEWS LEFT (GENERIC) CLINICAL HISTORY: Ganglion cyst of wrist, left TECHNIQUE: Frontal, lateral and oblique radiographs of the left wrist COMPARISON: None FINDINGS: There is no acute fracture, no dislocation. Visualized joint spaces are preserved. Soft tissue structures are unremarkable. Procedure Note Jojo Brown MD - 06/03/2018 EXAMINATION: XR WRIST COMPLETE MIN 3 VIEWS LEFT (GENERIC) CLINICAL HISTORY: Ganglion cyst of wrist, left TECHNIQUE: Frontal, lateral and oblique radiographs of the left wrist COMPARISON: None FINDINGS: There is no acute fracture, no dislocation. Visualized joint spaces are preserved. Soft tissue structures are unremarkable. IMPRESSION NO ACUTE FINDINGS. IF ACUTE DISTAL RADIUS FRACTURE OR OCCULT SCAPHOID FRACTURE IS SUSPECTEDAND RADIOGRAPHS ARE NORMAL, CASTING AND REPEAT X-RAYS IN 10-14 DAYS ARERECOMMENDED. MRI WRIST WITHOUT IV CONTRAST IS ALSO AN OPTION. (ACR AppropriatenessCriteria: Acute Hand And Wrist Trauma, 2013) Electronically signed by: [facility], at06/03/2018 3:21 PM Jose Calixto MD IMG DX ORDERABLES documented in this encounter Visit Diagnoses Diagnosis Ganglion cyst of wrist, left documented in this encounter Care Teams Line Supervisor Relationship Specialty Start Date End Date Maciej Szymanski DO [address] [place] [address] PCP - General 09/18/10 09/30/22 documented as of this encounter
--- OUTSIDE RECORDS SUMMARY | 2024-10-08 00:38 | XMS_ITS | Encounter Summary ---
Author Organization [facility] [address] Care Team Providers Care Data Integrity Consultant Name Role Phone Stephon Maciej ORTIZ Primary Care Provider Reason for Visit * Reason Comments Medication Refill Encounter Details Date Type Department Care Team (Late Contact Info) Description 03/30/2019 Refill Dermatology at [address] [phone] Prosper Schmidt MD [address] [place] [address], [place] [address] Psoriatic arthritis Social History Tobacco Use Types [...] 3:30 PM EST Office Visit Dermatology at [address] [phone] Prosper Schmidt MD [address] [place] [address], [place] [address] 12/14/2024 2:40 PM EST Office Visit Cardiology at [address] [place] [address] Benjie Garrison MD [facility] [place] [address] documented as of this encounter Visit Diagnoses Diagnosis Psoriatic arthritis Psoriatic arthropathy documented in this encounter Care Teams Data Integrity Consultant Relationship Specialty Start Date End Date Maciej Szymanski DO [address] [place] [address] PCP - General 09/18/10 09/30/22 documented as of this encounter
--- OUTSIDE RECORDS SUMMARY | 2024-10-08 00:38 | XMS_ITS | Encounter Summary ---
Author Organization [facility] [place] [address] Care Team Providers Care Synthetic Gem Press Operator Name Role Phone Stephon Maciej ORTIZ Primary Care Provider Reason for Visit * Reason Comments Medication Refill Encounter Details Date Type Department Care Team (Late Contact Info) Description 07/16/2018 Refill Dermatology at [address] [phone] Prosper Schmidt MD [address] [place] [address], [place] [address] Psoriatic arthritis Social History Tobacco Use Types [...] PM EST Office Visit Dermatology at [address] [phone] Prosper Schmidt MD [address] [place] [address], [place] [address] 12/14/2024 2:40 PM EST Office Visit Cardiology at [address] [place] [address] Benjie Garrison MD [facility] [place] [address] documented as of this encounter Visit Diagnoses Diagnosis Psoriatic arthritis Psoriatic arthropathy documented in this encounter Care Teams Synthetic Gem Press Operator Relationship Specialty Start Date End Date Maciej Szymanski DO [address] [place] [address] PCP - General 09/18/10 09/30/22 documented as of this encounter
--- OUTSIDE RECORDS SUMMARY | 2024-10-08 00:38 | XMS_ITS | Encounter Summary ---
Author Organization [facility] Address [facility] [place] [address] Care Team Providers Care Warehouser Name Role Phone Maciej Szymanski DO Primary Care Provider Reason for Visit * Reason Comments Follow-up Skin Check Encounter Details Date Type Department Care Team (Late st Contact Info) Description 01/02/2018 4:00 PM EST Office Visit Dermatology at [address] [address] Prosper Schmidt MD [address] [place] [address], [facility] [place] [address] Psoriasis Social History Tobacco Use Types Packs/Day [...] Progress Notes * Prosper Schmidt MD - 01/02/2018 4:00 PM EST Problem: 1. Psoriasis and psoriatic arthritis 2. On methotrexate 15 mg a week since November 2015 3. On Enbrel started by [facility] rheumatology 1 month ago Ervin follows up and I last saw him in September. Because of his psoriatic arthritis he was referred by Dr. Szymanski to [facility] rheumatology and there by Dr. Zhang was apparently started on Enbrel. Hehas been on for about a month. Patient states he has been taking it 50 mg once a week. He is using the sure click autoinjector and is tolerating it well alternating between his thighs, once in a while having a little bit of a mild injection site reaction. He has however already worked wonderfully well for his arthritis. His mobility is much improved. He no longer has his morning stiffness. He is however concerned about the additive immunosuppressive effects of his diabetes, the methotrexate, and now the Enbrel. He has been using some of the triamcinolone cream occasionally perhaps 3 times a week to remaining patches one on his right flank. If he could remember he would use it more often as this daily area is occasionally quite itchy. Physical examination reveals a pleasant 52-year-old gentleman who still has a small patch of psoriasis on his right flank. He has been applying triamcinolone 1% cream to this area perhaps 3 times weekly. Otherwise his psoriasis is clear. Assessment and plan: Psoriasis and psoriatic arthritis 1. Discussed with patient the option of tapering down and discontinuing his methotrexate. He will not likely need to be on both. I think the Enbrel by itself should be more than enough to control hisrelatively mild psoriasis and hopefully also his psoriatic arthritis. It certainly is doing so now 2. Encouraged patient to drop the dosing as follows: Take 5 of the 2.5 mg tablets for 1 week and then 4 for the next week then dropped to 3 next week to 2 the next week 1 next week then off. Thus in 5 weeks he will discontinue the methotrexate 3. Reassured about the relatively low level of immunosuppression that he will experience between the diabetes and the Enbrel. Encouraged him him not to discontinue the Enbrel but for the benefit of his skin and joints continue it. I explained my excellent experience with it and is excellent safety record 4. No need for lab testing as we are going to be tapering down and off of methotrexate. No need forlab testing while on Enbrel. Answered his questions about this medication. 5. Patient may decide that he wants to follow-up in this office for monitoring of his Enbrel as I had been up until now monitoring him for his methotrexate. We will he will call us on Friday with insurance information that he did not have today with him then we can call in refills for the Enbrel tohis mail away pharmacy: Enbrel 50 mg sure click autoinjector inject contents of one pen subcutaneous daily once a week dispense 4 autoinjector pens, 5 refills and 6. Return to clinic here in 3 monthsfor repeat check. Cc: Maciej Szymanski DO documented in this encounter Plan of Treatment Upcoming Encounters Date Type Department Care Team (Late st Contact Info) Description 11/08/2024 3:30 PM EST Office Visit Dermatology at [address] [address] Prosper Schmidt MD [address] [facility] [place] [address] 12/14/2024 2:40 PM EST Office Visit Cardiology at [address] [address] Benjie Garrison MD [facility] [place] [address] documented as of this encounter Visit Diagnoses Diagnosis Psoriasis Other psoriasis documented in this encounter Care Teams Warehouser Relationship Specialty Start Date End Date Maciej Szymanski DO [address] [facility] 1 [place] [address] PCP - General 09/18/10 09/30/22 documented as of this encounter
--- OUTSIDE RECORDS SUMMARY | 2024-10-08 00:38 | XMS_ITS | Encounter Summary ---
Author Organization [facility] Address [facility] [place] [address] Care Team Providers Care Core Machine Tender Name Role Phone Stephon Maciej ORTIZ Primary Care Provider [phone] Reason for Visit * Auth/Cert Specialty Diagnoses / Procedures Referred By Zenaida zuniga Referred To Contact Diagnoses barretts esophagus Prep- Proclear Procedures PRO UPPER GI ENDOSCOPY, DIAGNOSTIC EGD, UPPER GI ENDOSCOPY Referral ID Status Reason Start Date Expiration Date Visits Re quested Visits Authorized [id number] 1 1 Encounter Details Date Type Department Care Team (Late st Contact Info) Description 03/08/2019 6:19 PM EDT Anesthesia Event [place] [address] Julio Toledo MD [facility] [place] [address] Fred Bonner MD [facility] [place] [address] Anesthesia Record Procedure Summary Procedure Name Responsible Anesthesiologist Anesthesia Start Time Anesthesia Stop Time EGD WITH BIOPSY (WRVU 2.39) (Trunk) Julio Toledo MD 03/08/19 1819 03/08/19 1842 Events Date Time Event Comment 03/08/2019 1709 1819 AN Verify 1819 Start 1819 An Start Data 1823 An Induction 1823 Anesthesia Ready 1826 Procedure Start 1839 Procedure Stop 1841 an stop data 1841 Recovery or ICU Handoff Hansa ent care was transferred to the destination unit staff after review of the patient's medical history, current anesthetic/surgical status and plan, according to the Provider Handoff Checklist. 1841 Stop Meds Name Total Propofol 50 mg Propofol INF 215.9 mg Lactated Ringers 0 mL * Agents Name O2 Air N2O O2 Auxiliary Flowmeter 1 * Blood No blood administrations on file. Lines, Drains, and Airways Type Details Placement Removal (RETIRED) Peripheral IV Line - Single Lumen 03/08/19; 1604; metacarpal vein (top of hand), right; [id number]-[id number] catheter system; 20 gauge; nicanor klein rn; distraction, intradermal injection, tolerated well, appears comfortable; 0; 03/08/19; 191603/08/19 1604 by Chelsea Alba RN 03/08/191916 by Crys Loo RN documented in this encounter Social History Tobacco Use Types Packs/Day Years Used Date Smoking Tobacco: Former Cigarettes Q uit: 12/27/1988 Smokeless Tobacco: Never Alcohol Use Standard Drinks/Week Comments No 0 (1 standard drink = 0.6 oz pur e alcohol) Sex and Gender Information Value Date Recorded Sex Assigned at Not on file Gender Identity Not on file Sexual Orientation Not on file documented as of this encounter OR Notes * Anesthesia Postprocedure Evaluation - Julio Toledo MD - 03/08/2019 7:38 PM EDT Department of Anesthesiology Post-procedure Note Patient: Ervin Helms Procedure Summary Date: 03/08/19 Room / Location: [facility] / [facility] Anesthesia Start: 1818 Anesthesia Stop: 1841 Procedure: EGD WITH BIOPSY (WRVU 2.49) (N/A Trunk) Diagnosis: (barretts esophagus) (Prep- Proclear) Surgeon: Raheel Pinto MD Responsible Provider: Julio Toledo MD Anesthesia Type: MAC ASA Status: 2 All Anesthesia Providers: Anesthesiologist: Julio Toledo MD WINDOW INSTALLER: Rafa Rivero CRNA Vitals Value Taken Time BP 117/78 03/08/2019 7:10 PM Temp 36.3 ??C (97.3 ??F) 03/08/2019 6:50 PM Pulse Resp 18 03/08/2019 7:10 PM SpO2 99 % 03/08/2019 7:12 PM Pain Level 0 03/08/2019 7:10 PM Vitals shown include unvalidated device data. Patient Location: PACU/[facility] Level of Consciousness: Awake and Alert Pain Management: Satisfactory Analgesia PONV: None Cardiovascular Status: Hemodynamically Stable Respiratory Status: Stable Respiratory Status Postoperative Fluid Status: Intravascular EUvolemia Possible Anesthetic Complications: NONE apparent at time of evaluation Final Primary Anesthesia Type: MAC (The anesthetic type performed was the same as planned.) Comments: * Anesthesia Preprocedure Evaluation - Pravin Mendez MD - 03/08/2019 4:04 PM EDT Pre-Anesthesia Evaluation for: Ervin Helms a 53 y.o. male. Procedure(s): EGD, UPPER GI ENDOSCOPY Patient Active Problem List Diagnosis ??? Anemia, iron deficiency Negative GI work-up. History of Huang's esophagitis- months o f oral iron with minimal improvement. IV VENOFER 12/12 with good results ??? Visit for suture removal ??? Epidermal cyst ??? Type II or unspecified type diabetes mellitus without mention of complication, uncontrolled ??? GERD (gastroesophageal reflux disease) ??? Verruca vulgaris ??? Psoriasis Past Medical History: Diagnosis Date ??? Diabetes mellitus Past Surgical History: Procedure Laterality Date ??? PRO UPPER GI ENDOSCOPY, BIOPSY 09/21/2012 UPPER GASTROINTESTINAL ENDOSCOPY,WITH BIOPSY SINGLE OR MULTIPLE performed by RAHEEL PINTO at [facility] ??? UPPER GI ENDOSCOPY, EXAM 09/21/2012 UPPER GI ENDOSCOPY performed by RAHEEL PINTO at [facility] Social History Tobacco Use ??? Smoking status: Former Smoker Types: Cigarettes Last attempt to quit: 12/27/1988 Years since quittin.2 ??? Smokeless tobacco: Never Used Substance Use Topics ??? Alcohol use: No Social History Substance and Sexual Activity Drug Use No Allergies Allergen Reactions ? ? Dust & Pollen Filter Mask [Facial Mask] ??? Sulfa (Sulfonamide Antibiotics) Medications: MAR and/or home medications have been reviewed. Physical Exam: Most Recent Vitals: 03/08/19 1548 BP: 133/84 Pulse: 94 Temp: 36.6 ??C (97.9 ??F) SpO2: 99% Body mass index is 21.93 kg/m??. Height: 170.2 cm (5' 7) Weight: 63.5 kg (140 lb) Airway Assessment: Mallampati: II TM distance: >3 FB Neck ROM: full Cardiovascular Assessment: Rhythm: regular Rate: normal Pulmonary Assessment: breath sounds clear to auscultation Dental Assessment: - normal exam Misc Assessment: Patient is wearing No contact(s). IV access: Peripheral line Anesthesia Plan: ASA 2 MAC, with a(n) intravenous induction Attending NOTE Brief HPI: 53 y.o. W/ Huang's esophagus to OR for EGD Patient Active Problem List: Psoriasis Type II or unspecified type diabetes mellitus GERD (gastroesophageal reflux disease) Past Medical History: No date: Diabetes mellitus METS:>4 Cardiac Symptoms: none Past anesthetic problems: none reported NPO status: Reviewed and appropriate Anesthetic Plan: MAC, piv Monitoring: Standard ASA monitors I have seen and examined the patient. I have reviewed the medical record and pertinent laboratory information. I have noted the major medical issues to include abcd. I have reviewed risks from minor to major as outlined in the anesthesia consent form. I have highlighted risks related to abcd. The patient acknowledged These risks and would like to proceed with the anesthesia plan. Region - Other Informed Consent: Anesthetic plan and risks discussed with patient and spouse. PAT Clinic Note documented in this encounter Plan of Treatment Upcoming Encounters Date Type Department Care Team (Late st Contact Info) Description 11/08/2024 3:30 PM EST Office Visit Dermatology at [place] [address] [facility] [place] [address] Prosper Schmidt MD [address], [place] [address] 12/14/2024 2:40 PM EST Office Visit Cardiology at [address] [place] [phone] Benjie Garrison MD [facility] [place] [address] documented as of this encounter Visit Diagnoses Not on filedocumented in this encounter Administered Medications Inactive Administered Medications - up to 3 most recent administrations Medication Order MAR Action Action Date Dose Rate Site lactated ringers infusion CONTINUOUS PRN, Starting on Fri03/08/19 at 1819, Until Fri03/08/19 at 1842, Anesthesia Intra-op New Bag 03/08/2019 6:19 PM EDT propofol (DIPRIVAN) 10 mg/mL bolus injection (Anesthesia) PRN, Starting on Fri03/08/19 at 1823, Until Fri03/08/19 at 1842, Anesthesia Intra-op Given 03/08/2019 6:23 PM EDT 50 mg propofol (DIPRIVAN) infusion CONTINUOUS PRN, Starting on Fri03/08/19 at 1823, Until Fri03/08/19 at 1842, Anesthesia Intra-op, Routine New Bag 03/08/2019 6:23 PM EDT 200 mcg/kg/min 76.2 mL/hr documented in this encounter Care Teams Core Machine Tender Relationship Specialty Start Date End Date Maciej Szymanski DO [address] [facility] 1 [place] [address] PCP - General 09/18/10 09/30/22 documented as of this encounter
--- OUTSIDE RECORDS SUMMARY | 2024-10-08 00:38 | XMS_ITS | Encounter Summary ---
Author Organization [facility] [place] [address] Care Team Providers Care Director Of Casework Name Role Phone StephonMaciej cardona Primary Care Provider Encounter Details Date Type Department Care Team (Late Contact Info) Description 02/18/2019 [place] [address] Rosalva Almonte Social History Tobacco Use Types Packs/Day Years [...] encounter Miscellaneous Notes * Telephone Encounter - Rosalva Almonte - 02/18/2019 8:32 AM EDT Called pt to schedule a EGD for Huang's. No answer so left a vm documented in this encounter Plan of Treatment Upcoming Encounters Date Type Department Care Team (Late st Contact Info) Description 11/08/2024 3:30 PM EST Office Visit Dermatology at [address] [place] [phone] Prosper Schmidt MD [address] [facility] [address], [place] [address] 12/14/2024 2:40 PM EST Office Visit Cardiology at [place] [address] [facility] [place] [phone] Benjie Garrison MD [facility] [place] [address] documented as of this encounter Visit Diagnoses Not on filedocumented in this encounter Care Teams Director Of Casework Relationship Specialty Start Date End Date Maciej Szymanski DO [address] [place] [address] [address] [facility] 1 [place] [address] PCP - General 09/18/10 09/30/22 documented as of this encounter
--- OUTSIDE RECORDS SUMMARY | 2024-10-08 00:38 | XMS_ITS | Encounter Summary ---
Author Organization [facility] Address [facility] [place] [address] Care Team Providers Care Line Repairer Tower Name Role Phone Maciej Szymanski DO Primary Care Provider Encounter Details Date Type Department Care Team (Late st Contact Info) Description 10/14/2017 2:00 PM EST Office [place] [address] Alise Romero, RN Examination of participant in clinical trial Social History Tobacco Use Types Packs/Day Years [...] as of this encounter Progress Notes * Alise Romero, RN - 10/14/2017 2:00 PM EST Please see today's phone note for details. This nurse reviewed information for study [id number] ([id number]) with Ervin in detail. He is considering starting a clinical trial for treatment of his PsA. He was given information to take home to discuss with his family. He was given contact information to let us know if he'd like to proceed or not. He is in agreement with this plan. Today he left 5c to do labs and x-rays as per Dr Malin orders. documented in this encounter Plan of Treatment Upcoming Encounters Date Type Department Care Team (Late st Contact Info) Description 11/08/2024 3:30 PM EST Office Visit Dermatology at [address] [place] [address] Prosper Schmidt MD [address] [facility], [place] Christoph DERMATOLOGY [place], [place] [phone] 12/14/2024 2:40 PM EST Office Visit Cardiology at [address] [place] [address] Benjie Garrison MD [facility] [place] [address] documented as of this encounter Visit Diagnoses Diagnosis Examination of participant in clinical trial documented in this encounter Care Teams Line Repairer Tower Relationship Specialty Start Date End Date Maciej Szymanski DO [address] [facility] 1 [place] [address] PCP - General 09/18/10 09/30/22 documented as of this encounter
--- OUTSIDE RECORDS SUMMARY | 2024-10-08 00:38 | XMS_ITS | Encounter Summary ---
[place] [address] Care Team Providers Care Reclamation Engineer Name Role Phone Stephon Maciej ORTIZ Primary Care Provider Encounter Details Date Type Department Care Team (Latest Contact Info) Description 05/21/2018 3:15 PM EDT Laboratory Appointment Lab [address] [place] [phone] Type 2 diabetes mellitus without complication, with [...] PM EST Office Visit Dermatology at [address] [place] [phone] Prosper Schmidt MD [address] [facility], [place] [address] 12/14/2024 2:40 PM EST Office Visit Cardiology at [address] [place] [address] Benjie Garrison MD [facility] [place] [address] documented as of this encounter Procedures Procedure Name Priority Date/Time Associated Diagnosis Comments U ALBUMIN/CRE RATIO STAT 05/21/2018 3 :26 PM EDT Type 2 diabetes mellitus without complication, with long-term current use of insulin LDL CHOLESTEROL, DIRECT STAT 05/21/2018 3:20 PM EDT Type 2 diabetes mellitus without complication, with long-term current use of insulin HEMOGLOBIN A1C STAT 05/21/2018 3:20 PM EDT Type 2 diabetes mellitus without complication, with long-term current use of insulin documented in this encounter Results * U Albumin/Cre Ratio (05/21/2018 3:26 PM EDT) Albumin / Creatinin Ratio, Urine Not Calculated 0 - 29 mcg/mg Cr [facility] Comment: Reference Ranges: <30 mcg/mg: [...] 2, 357? 362 Albumin, Urine <3.0 mg/L [facility] Creatinine, Urine 59 mg/dL [facility] Urine specimen (specimen) 05/21/2018 3:26 PM EDT 05/21/2018 3:56 PM EDT Narrative Resulting Agency Comment Spec In Lab Bernardo Britton MD URINE ORDERABLES Performing Organization Address [facility] Co de Phone Number [facility] [place] [address] * LDL Cholesterol, Direct (05/21/2018 3:20 PM EDT) LDL Cholesterol, Direct 89 mg/dL [facility] Comment: Lowest Risk: <100 mg/dL Lower Risk: 100-129 mg/dL Borderline High Risk: 130-159 mg/dL High Risk: 160-189 mg/dL Very High Risk: >hy=429 mg/dL Blood specimen (specimen) 05/21/2018 3:20 PM EDT 05/21/2018 3:27 PM EDT Narrative Resulting Agency Comment Spec In Lab Bernardo Britton MD CHEMISTRY ORDERABLES Performing Organization Address [facility] Co de Phone Number [facility] [place] [address] * (ABNORMAL) Hemoglobin A1c (05/21/2018 3:20 PM EDT) Pathologist [facility] Hemoglobin A1c 8.2(H) 4.3 - 5.6 % [facility] Comment: Reference Range: 4.3 - [...] 36: Suppl. 1, S67-74 Estimated Average Glucose 189 mg/dL [facility] Comment: eAG equivalents for HbA1c [...] into estimated average glucose values. ??Diabetes Care 2008:31(8):8941-1262. Blood specimen (specimen) 05/21/2018 3:20 PM EDT 05/21/2018 3:27 PM EDT Narrative Resulting Agency Comment Spec In Lab Bernardo Britton MD CHEMISTRY ORDERABLES [facility] [place] [id number] documented in this encounter Visit Diagnoses Diagnosis Type 2 diabetes mellitus without complication, with long-term current use of insulin documented in this encounter Care Teams Reclamation Engineer Relationship Specialty Start Date End Date Maciej Szymanski DO [address] [place] [address] [place] [address] PCP - General 09/18/10 09/30/22 documented as of this encounter
--- OUTSIDE RECORDS SUMMARY | 2024-10-08 00:38 | XMS_ITS | Encounter Summary ---
[place] [address] Care Team Providers Care Citizenship Instructor Name Role Phone Stephon Maciej ORTIZ Primary Care Provider Encounter Details Date Type Department Care Team (Latest Contact Info) Description 01/20/2018 1:00 PM EDT Laboratory Appointment Lab [address] [place] [phone] Type 2 diabetes mellitus without complication, with [...] 3:30 PM EST Office Visit Dermatology at [address] [place] [phone] Prosper Schmidt MD [address] [facility], [place] [address] 12/14/2024 2:40 PM EST Office Visit Cardiology at [address] [place] [phone] Benjie Garrison MD [facility] [place] [address] documented as of this encounter Procedures Procedure Name Priority Date/Time Associated Diagnosis Comments HEMOGLOBIN A1C Routine 01/20/2018 1:21 PM EDT Type 2 diabetes mellitus without complication, with long-term current use of insulin documented in this encounter Results * (ABNORMAL) Hemoglobin A1c (01/20/2018 1:21 PM EDT) Hemoglobin A1c 8.5(H) 4.3 - 5.6 % [facility] Comment: Reference Range: 4.3 - [...] Mellitus, Diabetes Care 2013; 36: Suppl. 1, Z57-19 Estimated Average Glucose 197 mg/dL [facility] Comment: eAG equivalents for HbA1c [...] into estimated average glucose values. ??Diabetes Care 2008:31(8):3863-5305. Blood specimen (specimen) 01/20/2018 1:21 PM EDT 01/20/2018 1:29 PM EDT Narrative Resulting Agency Comment Spec In Lab [facility] [place] [address] documented in this encounter Visit Diagnoses Diagnosis Type 2 diabetes mellitus without complication, with long-term current use of insulin documented in this encounter Care Teams Citizenship Instructor Relationship Specialty Start Date End Date Maciej Szymanski DO [address] [place] [address] [place] [address] PCP - General 09/18/10 09/30/22 documented as of this encounter
--- OUTSIDE RECORDS SUMMARY | 2024-10-08 00:38 | XMS_ITS | Encounter Summary ---
Author Organization [facility] Address [facility] [place] [address] Care Team Providers Care Sales Account Representative Name Role Phone Maciej Szymanski DO Primary Care Provider Reason for Visit * Reason Comments Left Wrist Pain ganglion cyst, somet imes painful. * Consultation (Routine) - Closed Specialty Diagnoses / Procedures Referred By Zenaida zuniga Referred To Contact Orthopaedics Diagnoses Ganglion cyst of dorsum of left wrist Maciej Szymanski DO [address] [place] [address] [facility] [address] [place] [address] Referral ID Status Reason Start Date Expiration Date V isits Requested Visits Authorized [id number] Closed Consult, Test & Treat Connection Center 05/14/2018 05/14/2019 1 1 Encounter Details Date Type Department Care Team (Late st Contact Info) Description 06/03/2018 4:00 PM EDT Office [place] [address] Jani Orozco PA [facility] [place] [address] Ganglion cyst Social History Tobacco Use Types Packs/Day Years [...] Sign Reading Time Taken Comments Blood Pressure 126/82 06/03/2018 4:20 PM EDT Pulse 84 06/03/2018 4:20 PM EDT Temperature - - Respiratory Rate - - Oxygen Saturation - - Inhaled Oxygen Concentration - - Weight 59 kg (130 lb) 06/03/2018 4:20 PM EDT maria d bal Height 172.7 cm (5' 8) 06/03/2018 4:20 PM EDT v erbal Body Mass Index 19.77 06/03/2018 4:20 PM EDT documented in this encounter Progress Notes * Jani Orozco PA - 06/03/2018 4:00 PM EDT History of present illness: Ervin Helms is a pleasant 52 years old male who present with left wrist mass. Patient states that he first noticed the mass on the volar aspect of his wrist about a year ago. He denies any injury,or trauma. Patient has a history of psoriatic arthritis with significant nailbed involvement. He states that at this point, the mass on his wrist is more a nuisance than anything. However, he describes moments where he bumps it against a hard object with significant soreness/pain. He was given a wrist brace to deal with this which worked well. Patient is diabetic. He denies any associated symptoms. Review of system: Denies fever, chills, nausea/vomiting, night sweats. We reviewed his past medical history, allergies, medications, surgical history, social/family history and updated his records appropriately Physical exam: 52 years old alert and oriented ??3 Wrist/hand exam: Mass on the volar face of the wrist radial aspect consistent with ganglion cyst Multiple nail plate deformity as a result of psoriatic arthritis and nailbiting Stable midcarpal and DRUJ Hand is well-perfused with no erythema, ecchymosis or swelling noted Neurovascularly intact Imaging: X-rays IMPRESSION NO ACUTE FINDINGS. Assessment and plan: 52 years old with left wrist ganglion cyst We reviewed the natural history of ganglion cysts. Treatment options discussed include watchful waiting and surgical excision. Indication for surgical excision includes open draining cyst that communicates with joint space, cyst with proximity close to the nail plate resulting in any form of deformity At this point, after reviewing risks of procedure and patient's diabetic status; He is comfortable watchfully waiting the progression of the cyst. He is aware that if the cyst increases in size start to get in the way of his activities, we can help with surgical excision All his questions answered and he is happy with plan Jani Orozco PA-C ?? documented in this encounter Plan of Treatment Upcoming Encounters Date Type Department Care Team (Late st Contact Info) Description 11/08/2024 3:30 PM EST Office Visit Dermatology at [address] [phone] Prosper Schmidt MD [address] [place] [address], [facility] [place] [address] 12/14/2024 2:40 PM EST Office Visit Cardiology at [address] [phone] Benjie Garrison MD [facility] [place] [address] documented as of this encounter Visit Diagnoses Diagnosis Ganglion cyst Ganglion, unspecified documented in this encounter Care Teams Sales Account Representative Relationship Specialty Start Date End Date Maciej Szymanski DO [address] [facility] 1 [place] [address] PCP - General 09/18/10 09/30/22 documented as of this encounter
--- OUTSIDE RECORDS SUMMARY | 2024-10-08 00:38 | XMS_ITS | Encounter Summary ---
Author Organization [facility] [place] [address] Care Team Providers Care Retail Marketing Specialist Name Role Phone Stephon, Maciej ORTIZ Primary Care Provider Encounter Details Date Type Department Care Team (Late st Contact Info) Description 12/05/2017 1:00 PM EST Clinical [place] [address] Social History Tobacco Use Types Packs/Day Years [...] 3:30 PM EST Office Visit Dermatology at [address] [place] [address] Prosper Schmidt MD [address] [facility] Christoph DERMATOLOGY [place], [place] [phone] 12/14/2024 2:40 PM EST Office Visit Cardiology at [address] [phone] Benjie Garrison MD [facility] [place] [address] documented as of this encounter Visit Diagnoses Not on filedocumented in this encounter Care Teams Retail Marketing Specialist Relationship Specialty Start Date End Date Maciej Szymanski DO [address] [place] [address] PCP - General 09/18/10 09/30/22 documented as of this encounter
--- OUTSIDE RECORDS SUMMARY | 2024-10-08 00:38 | XMS_ITS | Encounter Summary ---
Author Organization [facility] Address [facility] [place] [address] Care Team Providers Care Speech Writer Name Role Phone Maciej Szymanski DO Primary Care Provider Encounter Details Date Type Department Care Team (Late st Contact Info) Description 10/14/2017 2:56 PM EST - 10/14/2017 11:[address] [facility] Hospital Encounter XRay at [address] [place] [address] Ayde Malin, [facility] [place] [address] Psoriatic arthritis Discharge Disposition: Home Social History [...] End Date fluticasone propionate (Flonase) 50 mcg/actuation [place], Suspension 1-2 sprays by Each Nare route [...] 3:30 PM EST Office Visit Dermatology at [address] [address] Prosper Schmidt MD [address] [place] [address], [facility] DERMATOLOGY [place], [place] [id number] 12/14/2024 2:40 PM EST Office Visit Cardiology at [address] [phone] Benjie Garrison MD [facility] [place] [address] documented as of this encounter Procedures Procedure Name Priority Date/Time Associated Diagnosis Comments XR ELBOW 3 VIEWS LEFT (GENERIC) Routine 10/14/2017 3:22 PM EST Psoriatic arthritis documented in this encounter Results * XR Elbow 3 views Complete Left (Generic) (10/14/2017 3:22 PM EST) Anatomical Region Laterality Modality Elbow Left Digital Radiogra phy Impressions 10/14/2017 3:59 PM EST No acute osseous abnormality. Narrative 10/14/2017 3:59 PM EST EXAMINATION: XR ELBOW 3 VIEWS COMPLETE LEFT (GENERIC) CLINICAL HISTORY: pt iwth left sided elbow contractusre suspect psa pls assesss for anl of hte joint TECHNIQUE: Left elbow radiograph with 3 views: AP, oblique, and lateral. COMPARISON: None FINDINGS: There is no fracture, dislocation, or subluxation. Alignment at the elbow joint appears normal. No large joint effusion is present. No suspicious osseous or soft tissue density lesions are present. Procedure Note Raymon Ramos MD - 10/14/2017 EXAMINATION: XR ELBOW 3 VIEWS COMPLETE LEFT (GENERIC) CLINICAL HISTORY: pt iwth left sided elbow contractusre suspect psa plsassesss for anl of hte joint TECHNIQUE: Left elbow radiograph with 3 views: AP, oblique, and lateral. COMPARISON: None FINDINGS: There is no fracture, dislocation, or subluxation. Alignment at the elbowjoint appears normal. No large joint effusion is present. No suspicious osseousor soft tissue density lesions are present. IMPRESSION No acute osseous abnormality. 3:59 PM Ayde Malin DO IMG DX ORDERABLES documented in this encounter Visit Diagnoses Diagnosis Psoriatic arthritis Psoriatic arthropathy documented in this encounter Care Teams Speech Writer Relationship Specialty Start Date End Date Maciej Szymanski DO [address] [place] [address] PCP - General 09/18/10 09/30/22 documented as of this encounter
--- OUTSIDE RECORDS SUMMARY | 2024-10-08 00:38 | XMS_ITS | Encounter Summary ---
Author Organization [facility] [place] [address] Care Team Providers Care Records Specialist Name Role Phone Stephon Maciej ORTIZ Primary Care Provider Reason for Visit * Reason Comments Medication Refill Encounter Details Date Type Department Care Team (Late Contact Info) Description 09/21/2018 Refill Dermatology at [address] [phone] Prosper Schmidt MD [address] [place] [address], [place] [address] Psoriatic arthritis Social History Tobacco Use Types [...] PM EST Office Visit Dermatology at [address] [phone] Prosper Schmidt MD [address] [place] [address], [place] [address] 12/14/2024 2:40 PM EST Office Visit Cardiology at [address] [place] [address] Benjie Garrison MD [facility] [place] [place] [address] documented as of this encounter Visit Diagnoses Diagnosis Psoriatic arthritis Psoriatic arthropathy documented in this encounter Care Teams Records Specialist Relationship Specialty Start Date End Date Maciej Szymanski DO [address] [place] [address] PCP - General 09/18/10 09/30/22 documented as of this encounter
--- OUTSIDE RECORDS SUMMARY | 2024-10-08 00:38 | XMS_ITS | Encounter Summary ---
Author Organization [facility] Address [facility] [place] [address] Care Team Providers Care Systems Designer Name Role Phone StephonMaciej hunter Primary Care Provider Encounter Details Date Type Department Care Team (Late st Contact Info) Description 06/03/2018 Orders [place] [address] Jani Orozco PA [facility] [place] [address] Pain in left wrist Social History Tobacco Use Types Packs/Day Years [...] 3:30 PM EST Office Visit Dermatology at [place] [address] [place] [address] Prosper Schmidt MD [address], [place] [address] 12/14/2024 2:40 PM EST Office Visit Cardiology at [address] [place] [address] Benjie Garrison MD [facility] [place] [address] documented as of this encounter Visit Diagnoses Diagnosis Pain in left wrist Pain in joint, forearm documented in this encounter Care Teams Systems Designer Relationship Specialty Start Date End Date Maciej Szymanski DO [address] [place] [address] [address] [facility] 1 [place] [address] PCP - General 09/18/10 09/30/22 documented as of this encounter
--- OUTSIDE RECORDS SUMMARY | 2024-10-08 00:38 | XMS_ITS | Encounter Summary ---
Author Organization [facility] Address [facility] [place] [address] Care Team Providers Care Wood Barker Name Role Phone Maciej Szymanski DO Primary Care Provider Encounter Details Date Type Department Care Team (Late st Contact Info) Description 10/23/2017 Orders [place] [address] Ayde Malin, [facility] [place] [address] Psoriatic arthritis Social History Tobacco Use Types [...] PM EST Office Visit Dermatology at [address] [place] [address] Prosper Schmidt MD [address], [place] [address] 12/14/2024 2:40 PM EST Office Visit Cardiology at [address] [place] [address] Benjie Garrison MD [facility] [address] documented as of this encounter Visit Diagnoses Diagnosis Psoriatic arthritis Psoriatic arthropathy documented in this encounter Care Teams Wood Barker Relationship Specialty Start Date End Date Maciej Szymanski DO [address] [place] [address] [address] [place] [address] PCP - General 09/18/10 09/30/22 documented as of this encounter
--- OUTSIDE RECORDS SUMMARY | 2024-10-08 00:38 | XMS_ITS | Encounter Summary ---
Author Organization [facility] [place] [address] Care Team Providers Care Stone Trimmer Name Role Phone Stephon Maciej ORTIZ Primary Care Provider Reason for Visit * Reason Comments Medication Refill Encounter Details Date Type Department Care Team (Late st Contact Info) Description 10/08/2018 Refill Dermatology at [address] [phone] Prosper Schmidt MD [address] [place] [address], [place] [address] Psoriatic arthritis Social History Tobacco Use Types [...] 3:30 PM EST Office Visit Dermatology at [address] [phone] Prosper Schmidt MD [address] [place] [address], [place] [address] 12/14/2024 2:40 PM EST Office Visit Cardiology at [address] [place] [address] Benjie Garrison MD [facility] [place] [address] documented as of this encounter Visit Diagnoses Diagnosis Psoriatic arthritis Psoriatic arthropathy documented in this encounter Care Teams Stone Trimmer Relationship Specialty Start Date End Date Maciej Szymanski DO [address] [place] [address] PCP - General 09/18/10 09/30/22 documented as of this encounter
--- OUTSIDE RECORDS SUMMARY | 2024-10-08 00:38 | XMS_ITS | Encounter Summary ---
Author Organization [facility] Address [facility] [place] [address] Care Team Providers Care Senior Sales Consultant Name Role Phone Maciej Szymanski DO Primary Care Provider Reason for Visit * Reason Comments Diabetes Encounter Details Date Type Department Care Team (Late st Contact Info) Description 07/22/2017 1:00 PM EDT Office [place] [address] Umu New PIERCING SPECIALIST [facility] [place] [address] Type 2 diabetes mellitus without complication, with [...] Sign Reading Time Taken Comments Blood Pressure 119/78 07/22/2017 12:51 PM EDT Pulse 98 07/22/2017 12:51 PM EDT Temperature - - Respiratory Rate - - Oxygen Saturation - - Inhaled Oxygen Concentration - - Weight 57.5 kg (126 lb 12.8 oz) 017 12:51 PM EDT Height 172.7 cm (5' 7.99) 07/22/2017 1 2:51 PM EDT Body Mass Index 19.28 07/22/2017 12:51 PM EDT documented in this encounter Patient Instructions * Patient Instructions* Umu New APRN - 07/22/2017 1:00 PM EDT Vit D during the winter documented in this encounter Progress Notes * Umu New APRN - 07/22/2017 1:00 PM EDT DATE OF VISIT: 07/22/17 REASON FOR VISIT: Followup type 2 DM, now in poor control. BRIEF HISTORY: Presents and states he has not been as strict with his diet. He is working with a medical center representative but he states his weight got down to 118 and he knew that was too low. He would like to weigh closer to 150. DIABETES REGIMEN: Lantus, he has resumed taking, 8 units twice a day. Glipizide 5 mg, 2 tablets twice a day. Invokana 300 mg daily. Metformin 1000 mg twice a day. 24-HOUR MEAL PLAN: Breakfast varies: either 2 eggs with a small amount of cereal and 4 pieces of walton. Lunch today was soup and cookies. Evening meal varies; last evening it was cereal and fig cookies. He has been advised by medical center representative to have more fats and a low carb meal plan. DATE OF DIAGNOSIS OF DIABETES: 2008. PHYSICAL ACTIVITY: States he is always active. Does some strength training. Does some walking. PAST MEDICAL HISTORY: 1. Huang's esophagus. 2. Psoriasis. PAST SURGICAL HISTORY: 1. Moreno placed for scoliosis. 2. Cataract surgery. REVIEW OF SYSTEMS: Depression and mood. Overall is doing okay. Concerned about his 's health. Eyes: No recent vision changes. No recent headaches or chest pain or shortness of breath. Appetite is okay. Sleep pattern is good. PHYSICAL EXAM: Appearance: Scoliosis is evident. He is thin. Weight 126 pounds. He has lost 6 pounds since previous office visit. Blood pressure 119/78. Eyes: No retinopathy with green light exam. Neck: No thyromegaly or lymphadenopathy. Heart: Regular rate and rhythm. Lungs: Clear to auscultation. Feet: Skin is normal. Pulses are normal. Neuro: Normal sensation to 10 G of pressure. First nails are thick. IMPRESSION AND PLAN: DM type 2, now in poor control. Hemoglobin A1c 8.7%; previous was 7.5%. Discussed adding DPP4 or changing to mix insulin twice a day. Patient does not want to make changes today. His glucose levels are quite variable; some are as low as the 50s, and some are in the high 200s. He states he will consider changing diabetes regimen at next office visit if hemoglobin A1c is not closer to 7.5%. Has an appointment with PCP in 3 months. Plans to return to Endocrinology in 6 months. Will check hemoglobin A1c and other labs that he is due for. This was a 34-minute office visit with 25 minutes spent counseling face to face with patient in management of glucose levels, reviewing target glucose levels, reviewing prevention and treatment of hypoglycemia. He did have a flu vaccine. Recent Results (from the past 72 hour(s)) U Albumin/Cre Ratio Result Value Ref Range Alb/Cr Ratio, Random Not Calculated 0 - 29 mcg/mg Cr U Albumin Conc, Random <3.0 mg/L U Creatinine 76 mg/dL Creatinine Result Value Ref Range Creatinine 1.33 0.80 - 1.50 mg/dL Estimated GFR 57 (L) >=60 Hemoglobin A1c Result Value Ref Range Hemoglobin A1C 8.7 (H) 4.3 - 5.6 % Est Avg Gluc 203 mg/dL documented in this encounter Plan of Treatment Upcoming Encounters Date Type Department Care Team (Late st Contact Info) Description 11/08/2024 3:30 PM EST Office Visit Dermatology at [address] [place] [address] Prosper Schmidt MD [address] [facility], [place] DERMATOLOGY [place], [place] [id number] 12/14/2024 2:40 PM EST Office Visit Cardiology at [address] [place] [address] Benjie Garrison MD [facility] [place] [address] documented as of this encounter Results * (ABNORMAL) Hemoglobin A1c (01/20/2018 1:21 PM EDT) Hemoglobin A1c 8.5(H) 4.3 - 5.6 % [facility] Comment: Reference Range: [...] Mellitus, Diabetes Care 2013; 36: Suppl. 1, I66-64 Estimated Average Glucose 197 mg/dL [facility] Comment: eAG equivalents [...] into estimated average glucose values. ??Diabetes Care 2008:31(8):0208-2948. Blood specimen (specimen) 01/20/2018 1:21 PM EDT 01/20/2018 1:29 PM EDT Narrative Resulting Agency Comment Spec In Lab [facility] Binta Virgen PIERCING SPECIALIST CHEMISTRY ORDERABLE S Performing Organization Address City/State/[facility] Co de Phone Number [facility] [place] [address] documented in this encounter Visit Diagnoses Diagnosis Type 2 diabetes mellitus without complication, with long-term current use of insulin documented in this encounter Care Teams Senior Sales Consultant Relationship Specialty Start Date End Date Maciej Szymanski DO [address] [place] [address] PCP - General 09/18/10 09/30/22 documented as of this encounter
--- OUTSIDE RECORDS SUMMARY | 2024-10-08 00:38 | XMS_ITS | Encounter Summary ---
[place] [address] Care Team Providers Care Professor Of Geography Name Role Phone StephonMaciej hunter Primary Care Provider Encounter Details Date Type Department Care Team (Late st Contact Info) Description 10/15/2017 Telephone [place] [address] Magui Short RN Social History Tobacco Use Types Packs/Day [...] encounter Miscellaneous Notes * Telephone Encounter - Magui Short RN - 10/16/2017 1:30 PM EST error documented in this encounter Plan of Treatment Upcoming Encounters Date Type Department Care Team (Late st Contact Info) Description 11/08/2024 3:30 PM EST Office Visit Dermatology at [address] [place] [phone] Prosper Schmidt MD [address] [facility] [address], [place] [address] 12/14/2024 2:40 PM EST Office Visit Cardiology at [place] [address] [facility] [place] [phone] Benjie Garrison MD [facility] [place] [address] documented as of this encounter Visit Diagnoses Not on filedocumented in this encounter Care Teams Professor Of Geography Relationship Specialty Start Date End Date Maciej Szymanski DO [address] [facility] 1 [place] [address] PCP - General 09/18/10 09/30/22 documented as of this encounter
--- OUTSIDE RECORDS SUMMARY | 2024-10-08 00:38 | XMS_ITS | Encounter Summary ---
Author Organization [facility] Address [facility] [place] [address] Care Team Providers Care Log Cutter Name Role Phone Stephon Maciej ORTIZ Primary Care Provider [phone] Reason for Visit * Reason Onset Date Comments Other 12/09/2017 Encounter Details Date Type Department Care Team (Late st Contact Info) Description 12/09/2017 Telephone [place] [phone] Magui Short, RN Other Social History Tobacco Use Types Packs/Day Years [...] Telephone Encounter - Magui Short RN - 12/09/2017 9:47 AM EST Ervin calls today to report that he has a Head cold and is congested. Would like advice on Enbrel. RTC to Ervin and he reports Green nasal secretions, Sinus Congestion and reports he felt feverish but did not take his Temperature. Ervin just started Enbrel last Friday and would like to continue taking because he thinks it may have started working for him. I advised Ervin to Hold Enbrel and be checked out by his PCP for potential sinus infection and please call back with an update. Ervin calls back and states he has an appointment today at 3:40 pm to be seen. Will call with an update. documented in this encounter Plan of Treatment Upcoming Encounters Date Type Department Care Team (Late st Contact Info) Description 11/08/2024 3:30 PM EST Office Visit Dermatology at [address] [phone] Prosper Schmidt MD [address] [facility] [place] [address] 12/14/2024 2:40 PM EST Office Visit Cardiology at [address] [phone] Benjie Garrison MD [facility] [place] [address] documented as of this encounter Visit Diagnoses Not on filedocumented in this encounter Care Teams Log Cutter Relationship Specialty Start Date End Date Maciej Szymanski DO [address] [place] [address] PCP - General 09/18/10 09/30/22 documented as of this encounter
--- OUTSIDE RECORDS SUMMARY | 2024-10-08 00:38 | XMS_ITS | Encounter Summary ---
Author Organization [facility] [place] [address] Care Team Providers Care Steam Pipe Fitter Name Role Phone Maciej Szymanski DO Primary Care Provider Reason for Visit * Reason Comments Follow-up Psoriasis Encounter Details Date Type Department Care Team (Late st Contact Info) Description 06/13/2017 3:15 PM EDT Office Visit Dermatology at [address] [phone] Prosper Schmidt MD [address] [place] [address], [place] [address] Psoriasis Social History Tobacco Use Types Packs/Day [...] Progress Notes * Prosper Schmidt MD - 06/13/2017 3:15 PM EDT PROBLEM: Follow-up psoriasis, on methotrexate. Ervin follows up and has been doing well. His psoriasis is well-controlled, unchanged on methotrexate. He has not had any issues, nausea, or other side effects with methotrexate. He continues only to have a single spot of psoriasis come up, a quarter-sized plaque on his right flank. Physical examination reveals indeed that he has one small plaque on the right flank, but no evidence of other psoriasis on the elbows or knees. A/P: 1. Psoriasis, well-controlled on methotrexate. a. Continue current dosing, taking 6 of the 2.5 mg tablets p.o. q. week for a total of 15 mg of methotrexate a week. We will call #[phone] with zero refills to his [facility] in [facility]. He takes this medication on Mondays. b. Continue folate 1 mg p.o. daily every day except the day he takes methotrexate, namely Mondays. He was given #90 for a 3-month supply with 3 refills in 02/2017. c. Return to clinic in another 3 months for recheck. Repeat labs at that time. We will need to renew his standing orders at [facility] at the time of his next visit. CC: Maciej Szymanski DO documented in this encounter Plan of Treatment Upcoming Encounters Date Type Department Care Team (Late st Contact Info) Description 11/08/2024 3:30 PM EST Office Visit Dermatology at [address] [phone] Prosper Schmidt MD [address] [place] [address], [facility] [place] [address] 12/14/2024 2:40 PM EST Office Visit Cardiology at [address] [phone] Benjie Garrison MD [facility] [place] [address] documented as of this encounter Visit Diagnoses Diagnosis Psoriasis Other psoriasis documented in this encounter Care Teams Steam Pipe Fitter Relationship Specialty Start Date End Date Maciej Szymanski DO [facility] [address] [place] [address] PCP - General 09/18/10 09/30/22 documented as of this encounter
--- OUTSIDE RECORDS SUMMARY | 2024-10-08 00:38 | XMS_ITS | Encounter Summary ---
Author Organization [facility] Address [facility] [place] [address] Care Team Providers Care Traffic Sign Erection Supervisor Name Role Phone Maciej Szymanski DO Primary Care Provider Reason for Visit * Reason Comments Follow-up Psoriasis Encounter Details Date Type Department Care Team (Late st Contact Info) Description 09/25/2018 3:00 PM EST Office Visit Dermatology at [address] [phone] Prosper Schmidt MD [address] [place] [address], [facility] [place] [address] Psoriatic arthritis; Psoriasis Social History Tobacco Use [...] Progress Notes * Prosper Schmidt MD - 09/25/2018 3:00 PM EST Problem: 1. Psoriasis and psoriatic arthritis on Enbrel since November 2017 doing very well 2. Previous on methotrexate November 2015 through December 2017 Ervin follows up and is doing beautifully. He terms Enbrel as his wonder drug. He is tolerating itwell using the sure click autoinjector injecting 150 mg pen subcutaneously every week and the otheris left or right thigh, alternating thighs each injection. He has no follow-up was scheduled for [facility] rheumatology. His arthritis as well as cutaneous psoriasis are both very well controlled with theEnbrel. Physical examination reveals a pleasant 52-year-old gentleman whose psoriasis is clear. He has no injection site reaction problems. He has no evidence of any active psoriasis. Assessment and plan: Psoriasis and psoriatic arthritis, well controlled with Enbrel 50 mg sure click autoinjectors 1. Patient is down and off of methotrexate and has DC'd his folic acid 2. Continue Enbrel at current dosing level 3. No need for lab testing, and giving his good arthritic control no need for liver follow-up with rheumatology. 4. Recommend I see him again in another 6 months for repeat check. Today will fax in a refill for his sure click autoinjectors, Enbrel, 50 mg to contents of one precipitously once every week dispense#4 with 5 refills. This will go to his [facility] specialty pharmacy. CC: Maciej Szymanski DO documented in this encounter Plan of Treatment Upcoming Encounters Date Type Department Care Team (Late st Contact Info) Description 11/08/2024 3:30 PM EST Office Visit Dermatology at [address] [phone] Prosper Schmidt MD [address] [place] [address], [facility] [place] [address] 12/14/2024 2:40 PM EST Office Visit Cardiology at [address] [phone] Benjie Garrison MD [facility] [place] [address] documented as of this encounter Visit Diagnoses Diagnosis Psoriatic arthritis Psoriatic arthropathy Psoriasis Other psoriasis documented in this encounter Care Teams Traffic Sign Erection Supervisor Relationship Specialty Start Date End Date Maciej Szymanski DO [address] [place] [address] [address] [place] [address] PCP - General 09/18/10 09/30/22 documented as of this encounter
--- OUTSIDE RECORDS SUMMARY | 2024-10-08 00:38 | XMS_ITS | Encounter Summary ---
Author Organization [facility] Address [facility] [place] [address] Care Team Providers Care Farm Crops Teacher Name Role Phone Maciej Szymanski DO Primary Care Provider Reason for Visit * Reason Comments Follow-up Encounter Details Date Type Department Care Team (Late st Contact Info) Description 03/26/2019 4:15 PM EDT Office Visit Dermatology at [address] [phone] Prosper Schmidt MD [address] [place] [address], [facility] [place] [address] Psoriatic arthritis; Psoriasis Social History Tobacco Use [...] Progress Notes * Prosper Schmidt MD - 03/26/2019 4:15 PM EDT Problem: 1. Psoriasis and psoriatic arthritis on Enbrel since November 2017 doing very well 2. Previous on methotrexate November 2015 through December 2017 Ervin follows up and is doing beautifully. His psoriasis is still well controlled with the Enbrel although he has a couple of very small plaques one on his right flank and one on his mid back. He is tolerating it well utilizing the sure click autoinjector injecting 1 of the 50 mg pen subcutaneously every week either to the left or the right thigh, alternating each injection. He had no injection sit e reactions. He has no swelling. His arthritic symptoms are well controlled with the Enbrel. We just refilled his prescription for another 6-month supply. Today he is reading a book on the late Karina who just this earlier this year. Physical examination reveals a pleasant 53-year-old gentleman whose psoriasis on the hands the forearms the arms the thighs the calves is clear. He points to 2 small areas where he has involvement onhis flank and back. Assessment plan: Psoriasis and psoriatic arthritis, well controlled with Enbrel 50 mg using the sure click autoinjector once weekly 1. Continue Enbrel at current dosing level 2. Patient has a 6-month supply from this month. 3. We will keep his prior authorization active. 4. Return to clinic in another 6 months for a repeat check. 5. Patient congratulated on his wonderful response to therapy CC: Maciej Szymanski DO documented in this encounter Plan of Treatment Upcoming Encounters Date Type Department Care Team (Late st Contact Info) Description 11/08/2024 3:30 PM EST Office Visit Dermatology at [address] [phone] Prosper Schmidt MD [address] [place] [address], [facility] [place] [address] 12/14/2024 2:40 PM EST Office Visit Cardiology at [address] [phone] Benjie Garrison MD [facility] [address] documented as of this encounter Visit Diagnoses Diagnosis Psoriatic arthritis Psoriatic arthropathy Psoriasis Other psoriasis documented in this encounter Care Teams Farm Crops Teacher Relationship Specialty Start Date End Date Maciej Szymanski DO [address] [place] [address] PCP - General 09/18/10 09/30/22 documented as of this encounter
--- OUTSIDE RECORDS SUMMARY | 2024-10-08 00:38 | XMS_ITS | Encounter Summary ---
Author Organization [facility] [place] [address] Care Team Providers Care Steamtable Worker Name Role Phone Maciej Szymanski DO Primary Care Provider Reason for Visit * Auth/Cert Specialty Diagnoses / Procedures Referred By Zenaida zuniga Referred To Contact Diagnoses barretts esophagus Prep- Proclear Procedures PRO UPPER GI ENDOSCOPY, DIAGNOSTIC EGD, UPPER GI ENDOSCOPY Referral ID Status Reason Start Date Expiration Date Visits Re quested Visits Authorized [id number] 1 1 Encounter Details Date Type Department Care Team (Latest Contact Info) Description 03/08/2019 3:40 PM EDT - 03/08/2019 7:26 PM EDT Hospital En[place] [address] Raheel Pinto MD [facility] [place] [address] Discharge Disposition: Home Social History Tobacco Use [...] Sign Reading Time Taken Comments Blood Pressure 117/78 03/08/2019 7:10 PM EDT Pulse 81 03/08/2019 6:44 PM EDT Temperature 36.3 ??C (97.3 ??F) 03/08/2019 6:50 PM ED T Respiratory Rate 18 03/08/2019 7:10 PM EDT Oxygen Saturation 98% 03/08/2019 7:10 PM EDT Inhaled Oxygen Concentration - - Weight 63.5 kg (140 lb) 03/08/2019 3:48 PM EDT Height 170.2 cm (5' 7) 03/08/2019 3:48 PM EDT Body Mass Index 21.93 03/08/2019 3:48 PM EDT documented in this encounter Discharge Instructions * Discharge Instructions* Crys Loo RN - 03/08/2019 6:46 PM EDT Please call [phone] before 8pm Mon-Fri with problems, questions or concerns. If you call after 8pm or on weekends, call the Hospital at [phone] and ask to speak to the Big Data Lead nutrition faculty member and the mail processing machine operator will contact that person for you. * Patient Instructions* Raheel Pinto MD - 03/08/2019 6:43 PM EDT Please see Recommendations in the Provation procedure report which is documented in the procedural note in E-[facility]. * Attachments The following attachments cannot be sent through Care Everywhere. * EGD (Upper Endoscopy): Post-op (Icelandic) documented in this encounter Medications at Time of Discharge Medication Sig Dispensed Refills Start Date End Date fluticasone propionate (Flonase) 50 mcg/actuation Spearfish, Suspension 1-2 sprays by Each Nare route daily as needed. 10/15/2015 lwumtbyt-yfwrpm-uco 1-D3-C-srinivasan 750-625-1,000 mg-mg-unit Tablet Take 2 tablets [...] Pinto MD - 03/08/2019 6:[address] [facility] Operative Note Patient Name: Ervin Helms : [id number] MR#: [id number] Case Date: 03/08/2019 Surgeon: Surgeon(s) and Role: [...] PM EST Office Visit Dermatology at [address] [phone] Prosper Schmidt MD [address] [place] [address], [facility] DERMATOLOGY [place], [place] [address] 12/14/2024 2:40 PM EST Office Visit Cardiology at [address] [phone] Benjie Garrison MD [facility] [place] [address] documented as of this encounter Procedures Procedure [...] PM EDT 03/08/2019 6:44 PM EDT Narrative [facility] - 03/08/2019 6:44 PM EDT Specimen requisition ordered. ??Separate Pathology report to follow Raheel Pinto MD PATHOLOGY/CYTOLOGY O RDERAJOEL Performing Organization Address [facility] Co de Phone Number [facility] [place] [address] * Specimen to Pathology (03/08/2019 6:44 PM EDT) AP Specimen 03/08/2019 6:44 PM EDT 03/08/2019 6:44 PM EDT Narrative [facility] - 03/08/2019 6:44 PM EDT Specimen requisition ordered. ??Separate Pathology report to follow Raheel Pinto MD PATHOLOGY/CYTOLOGY O RDERABLES Performing Organization Address City/[facility]/ZIP Co de Phone Number [facility] [place] [address] * Surgical Pathology Report (03/08/2019 6:42 PM EDT) Final Diagnosis [id number] ? Location: 4T; EN06; A The signing [...] Henao MD Verified: ??03/18/2019 ?Pathologist Performed at: ??-[facility] Dept. of Pathology, [place], [place] ?Surgical Pathology DIAGNOSIS A - Esophagus [...] Henao MD Verified: ??03/11/2019 ?Pathologist Performed at: ??-[facility] Dept. of Pathology, [place], [place] CLINICAL INFORMATION Specimen Submitted: A - [...] labeled B1. ??jmb 03/18/2019 10:21 AM EDT [facility] GI Biopsy 03/08/2019 6:42 PM EDT 03/08/2019 6:42 PM EDT GI Biopsy 03/08/2019 6:42 PM EDT 03/08/2019 6:42 PM EDT Consult Case 03/08/2019 6:42 PM EDT 03/08/2019 6:42 PM EDT Raheel Pinto MD PATHOLOGY/CYTOLOGY O CARLITAERAJOEL [facility] [place] [address] * UPPER GI ENDOSCOPY (03/08/2019 4:43 PM EDT) UPPER GI ENDOSCOPY [facility] Endoscopy Procedure Date: 03/08/2019 4:43 PM ? Patient Name: Ervin Helms ? Date of : 1965 ? Age: 53 ? Order #: [id number] ? Instrument Name: [id number] ? Procedure: ? Upper GI endoscopy Indications: ? Follow-up of Huang's esophagus Providers: ? Raheel Pinto MD, Tanja Ghosh ? Millie Hoang, ? End Finder Twisting Department Referring : ?Maciej Szymanski, DO Medicines: ? [...] by the physician, the ? nurse, the interface developer and the ? music sound light technician. The procedure was ? verified in [...] pathology. Wide Area ? Transepithelial Sampling (WATS-3D [place] Biopsy) was ? performed for histology and [...] Glucose, POC 208(H) 65 - 199 mg/dL [facility] Comment: Supplemental ranges: <140 mg/dL before meals <180 mg/dL all other times of the day Blood specimen (specimen) 03/08/2019 4:04 PM EDT 03/08/2019 4:04 PM EDT Raheel Pinto MD POINT OF CARE TEST O RDERABLES [facility] [place] [address] * (ABNORMAL) POCT Fingerstick Glucose (03/08/2019 4:00 [...] RN) documented in this encounter Care Teams Steamtable Worker Relationship Specialty Start Date End Date Maciej Szymanski DO [address] [place], [place] [address] [place] [address] PCP - General 09/18/10 09/30/22 documented as of this encounter
--- OUTSIDE RECORDS SUMMARY | 2024-10-08 00:38 | XMS_ITS | Encounter Summary ---
Author Organization [facility] [place] [address] Care Team Providers Care Tractor Trailer Mechanic Name Role Phone Stephon Maciej ORTIZ Primary Care Provider Reason for Visit * Reason Onset Date Comments Other 10/17/2017 Follow Up Encounter Details Date Type Department Care Team (Late st Contact Info) Description 10/17/2017 [place] [phone] Magui Short RN Other (Follow Up) Social History Tobacco Use Types Packs/Day Years [...] Telephone Encounter - Magui Short RN - 10/23/2017 12:05 PM EST Called Ervin and spoke with him about Enbrel training, when he receives a call from Pharmacy about Enbrel he will let me know and then we will set up teaching appointment. * Telephone Encounter - Magui Short RN - 10/23/2017 9:21 AM EST I spoke with Darcy today because I had not heard back from Ervin. She states Ervin does not want to do study at this time and would like to start medications recommended. * Telephone Encounter - Magui Short RN - 10/17/2017 12:54 PM EST I will send him a letter with his results, but he was deciding between standard of care and entering into a study. ??His labs all looked good, but his CRP was elevated mildly which suggests inflammation likely related to his psoriatic arthritis, his xrays did not show damage related to inflammatoryarthritis at this time, but did show osteoarthritis ?? ----- Message ----- ? From: Amanuel, Lab [facility] [place] [facility] ? Sent: 10/14/2017 ?? 6:00 PM ? To: Ayde Malin, DO Called Ervin and he was not available, his Darcy took the message and she will ask Ervin to call back about treatment plan. documented in this encounter Plan of Treatment Upcoming Encounters Date Type Department Care Team (Late st Contact Info) Description 11/08/2024 3:30 PM EST Office Visit Dermatology at [address] [phone] Prosper Schmidt MD [address] [place] [address], [facility] [address] 12/14/2024 2:40 PM EST Office Visit Cardiology at [address] [phone] Benjie Garrison MD [facility] [address] documented as of this encounter Visit Diagnoses Not on filedocumented in this encounter Care Teams Tractor Trailer Mechanic Relationship Specialty Start Date End Date Maciej Szymanski DO [address] [place] [address] PCP - General 09/18/10 09/30/22 documented as of this encounter
--- OUTSIDE RECORDS SUMMARY | 2024-10-08 00:38 | XMS_ITS | Encounter Summary ---
Author Organization [facility] [place] [address] Care Team Providers Care Automatic Machine Attendant Name Role Phone Stephon Maciej ORTIZ Primary Care Provider Reason for Visit * Reason Comments Medication Refill Encounter Details Date Type Department Care Team (Late st Contact Info) Description 09/29/2018 Refill Dermatology at [address] [phone] Prosper Schmidt MD [address] [place] [address], [place] [address] Psoriatic arthritis Social History Tobacco Use Types [...] 3:30 PM EST Office Visit Dermatology at [address] [phone] Prosper Schmidt MD [address] [place] [address], [place] [address] 12/14/2024 2:40 PM EST Office Visit Cardiology at [address] [place] [address] Benjie Garrison MD [facility] [place] [address] documented as of this encounter Visit Diagnoses Diagnosis Psoriatic arthritis Psoriatic arthropathy documented in this encounter Care Teams Automatic Machine Attendant Relationship Specialty Start Date End Date Maciej Szymanski DO [address] [place] [address] PCP - General 09/18/10 09/30/22 documented as of this encounter
--- OUTSIDE RECORDS SUMMARY | 2024-10-08 00:38 | XMS_ITS | Encounter Summary ---
Author Organization [facility] Address [facility] [address] [place] [address] Care Team Providers Care Drafter Electromechanical Name Role Phone Maciej Szymanski DO Primary Care Provider [phone] Encounter Details Date Type Department Care Team (Late st Contact Info) Description 11/06/2017 [place] [address] Ayde Malin, [facility] [place] [address] Psoriatic arthritis Social History Tobacco Use Types [...] PM EST Office Visit Dermatology at [address] [place] [address] Prosper Schmidt MD [address] [facility] [address], [address] [place] [address] 12/14/2024 2:40 PM EST Office Visit Cardiology at [address] [place] [address] Benjie Garrison MD [facility] [place] [address] documented as of this encounter Visit Diagnoses Diagnosis Psoriatic arthritis Psoriatic arthropathy documented in this encounter Care Teams Drafter Electromechanical Relationship Specialty Start Date End Date Maciej Szymanski DO [address] [place] [address] [address] [place] [address] PCP - General 09/18/10 09/30/22 documented as of this encounter
--- OUTSIDE RECORDS SUMMARY | 2024-10-08 00:38 | XMS_ITS | Encounter Summary ---
[place] [address] Care Team Providers Care Eap Consultant Name Role Phone Stephon Maciej ORTIZ Primary Care Provider [phone] Encounter Details Date Type Department Care Team (Late st Contact Info) Description 07/29/2019 Telephone [place] [address] Uriel Anaya Social History Tobacco Use Types Packs/Day Years [...] encounter Miscellaneous Notes * Telephone Encounter - Uriel Anaya - 07/29/2019 3:14 PM EDT Caller and relationship to patient (if other than patient): Ervin Griffithby Or home number [phone] Best time to reach caller: anytime Message or Reason for Call: Results of his biopsy. Question about the hernia. documented in this encounter Plan of Treatment Upcoming Encounters Date Type Department Care Team (Late st Contact Info) Description 11/08/2024 3:30 PM EST Office Visit Dermatology at [place] [address] [facility] [place] [address] Prosper Schmidt MD [address] [facility] [address] 12/14/2024 2:40 PM EST Office Visit Cardiology at [place] [address] [facility] [place] [address] Benjie Garrison MD [facility] [place] [address] documented as of this encounter Visit Diagnoses Not on filedocumented in this encounter Care Teams Eap Consultant Relationship Specialty Start Date End Date Maciej Szymanski DO [address] [facility] [address] [place] [address] PCP - General 09/18/10 09/30/22 documented as of this encounter
--- OUTSIDE RECORDS SUMMARY | 2024-10-08 00:38 | XMS_ITS | Encounter Summary ---
[place] [address] Care Team Providers Care Back Order Clerk Name Role Phone Maciej Szymanski DO Primary Care Provider [phone] Encounter Details Date Type Department Care Team (Late st Contact Info) Description 10/14/2017 Tele[place] [phone] Alise Romero, RN Social History Tobacco Use Types Packs/Day [...] encounter Miscellaneous Notes * Telephone Encounter - Alise Romero, RN - 10/14/2017 3:24 PM EST This nurse sat with Mr Helms following his scheduled appointment with Dr Malin in rheumatology today. Dr Malin referred pt for possible consideration of participation in clinical trials. He is currently being worked up for PsA diagnosis. Mr Helms was given information about the M15-572 ([id number]) trial for patients with PsA. The study was discussed in some detail and he was given a copy of the consent to review at home with his family. Pt was also given contact information and he states that he will call if further questions or if he would like to proceed with the trial. He is planning on having lab work and x-rays done today as per order of Dr Malin. documented in this encounter Plan of Treatment Upcoming Encounters Date Type Department Care Team (Late st Contact Info) Description 11/08/2024 3:30 PM EST Office Visit Dermatology at [address] [phone] Prosper Schmidt MD [address] [facility] [place] [address] 12/14/2024 2:40 PM EST Office Visit Cardiology at [address] [phone] Benjie Garrison MD [facility] [place] [address] documented as of this encounter Visit Diagnoses Not on filedocumented in this encounter Care Teams Back Order Clerk Relationship Specialty Start Date End Date Maciej Szymanski DO [address] [place] [address] [address] [facility] 1 [place] [address] PCP - General 09/18/10 09/30/22 documented as of this encounter
--- OUTSIDE RECORDS SUMMARY | 2024-10-08 00:38 | XMS_ITS | Encounter Summary ---
Author Organization [facility] Address [facility] [place] [address] Care Team Providers Care Commercial Internship Name Role Phone Maciej Szymanski DO Primary Care Provider Reason for Visit * Reason Comments Referral * Consultation (Routine) - Closed Specialty Diagnoses / Procedures Referred By Zenaida zuniga Referred To Contact Rheumatology Diagnoses Arthralgia Maciej Szymanski DO [address] [place] [address] [facility] [address] [place] [phone] Referral ID Status Reason Start Date Expiration Date V isits Requested Visits Authorized [id number] Closed Consult, Test & Treat Connection Center 10/02/2017 10/02/2018 1 1 Encounter Details Date Type Department Care Team (Late st Contact Info) Description 10/14/2017 1:00 PM EST Office [place] [address] Ayde Malin, [facility] [place] [address] Psoriatic arthritis; High risk medication use; Psoriasis Social History Tobacco Use Types Packs/Day [...] Sign Reading Time Taken Comments Blood Pressure 116/79 10/14/2017 1:00 PM EST Pulse 103 10/14/2017 1:00 PM EST Temperature 37.1 ??C (98.8 ??F) 10/14/2017 1:00 PM ES T Respiratory Rate - - Oxygen Saturation 99% 10/14/2017 1:00 PM EST Inhaled Oxygen Concentration - - Weight 56.7 kg (125 lb) 10/14/2017 1:00 PM EST Height 172.7 cm (5' 8) 10/14/2017 1:00 PM EST Body Mass Index 19.01 10/14/2017 1:00 PM EST documented in this encounter Progress Notes * Ayde Malin DO - 10/14/2017 1:00 PM EST Rheumatology Outpatient Consultation Note Reason for Consult: The patient is seen at the request of Dr. Maciej Szymanski DO for evaluation and treatment of poss psoriatic arthritis History of Present Illness: Ervin Helms is a 51 y.o. male who presents today for evaluation of psA. He notes pain in his joints and primarily has noted increased pain in his elbows, shoulders and neck. pain is worse in the am and improves throughout the day. He reports 2-3 hours of am stiffness. he has not particularly noted joint swelling, outside of his r ankle. He also has noted some r first mtp decr rom but no eryuthema or swelling. He denies any low back pain or stiffness. He has had psoriasis for many years, managed on mtx stable dosing which he tolerates well. He has some active skin disease on his abd which was treated with local steroid injection. He recently noted the inability to extend his elbow on the left. Notes pain at end range. Denies any pip, dip joint pain or stiffness. . Rheumatic history (x) means positive Iritis Dactylitis Pleuritis Pericarditis Oral / Nasal Ulcers PE/DVT Spontaneous Discoid SLE STD Raynaud???s Psoriasis Seizures Anemia X, ARLETH, had evaluation, had colonoscopy. 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 Comments are only made for responses that are changed from previous, not discussed in HPI, or otherwise require clarification. Systemic Comments 1. Generalized pain x 2. Fatigue/tiredness 3. Fevers 4. Chills 5. Night sweats 6. Recent weight loss X has a hard time keeping weight on 7. Recent Weight gain Head and neck 8. Headaches 9. Neck pain/stiffness x 10. Lymphadenopathy 11. Ocular erythema 12. Xerophthalmia 13. Gritty eyes 14. Eye pain 15. Photophobia 16. Oral sores 17. Xerostomia 18. Jaw claudication Cardiopulmonary 19. Chest discomfort 20. Dyspnea 21. Cough 22. Hemoptysis Gastrointestinal 23. Dysphagia 24. Heartburn 25. Nausea 26. Emesis 27. Abdominal pain 28. Hematochezia 29. Diarrhea 30. Constipation Genitourinary 31. Hematuria 32. Dysuria Musculoskeletal 33. Muscle weakness 34. Myalgia 35. Shoulder pain x 36. Raynaud's Neuropsychiatric 37. Paresthesia 38. Dysesthesia 39. Dizziness/vertigo 40. Anxiety 41. Depression 42. Cognitive problems 43. Initial insomnia 44. Night awakenings 45. Nonrestorative sleep Dermatologic 46. Xerosis cutis 47. Photosensitivity 48. Rash x PMHX Diabetes Psoriasis Arthritis Allergies gerd-barretts esophagus SurgHX Cataracts Spinal fusion-for scoliosis Family Hx: Family History Problem Relation Age of Onset ??? Cancer Mother ??? Heart Disease Brother M:cancer breast, psoriasis, arthritis F: emphysema, etoh Siblings: brother w prostate cancer, (-)RA, (-)lupus, (-)scleroderma, (-)sjogren's, (-)gout Social Hx: Social History Social History ??? Marital status: Spouse name: N/A ??? Number of children: N/A ??? Years of education: N/A Social History Main Topics ??? Smoking status: Former Smoker Packs/day: 0.25 Years: 5.00 Types: Cigarettes Quit date: 12/27/1988 ??? Smokeless tobacco: Never Used ??? Alcohol use No ??? Drug use: None ??? Sexual activity: Not Asked Other Topics Concern ??? 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 Well developed and nourished. The patient did not appear distressed oruncomfortable. The patient ambulated without difficulty or assistance. Head: Scalp: psoriasis Eyes: PERRL. Extraocular muscles were intact. External Eye: No hyperemia of the conjunctiva noted Sclera: Not red. Oral cavity: Buccal Mucosa showed no ulcer. Tongue did not have an ulcer. Salivary Glands: No xerostomia was observed. No parotid swelling noted. Pharynx: Pharynx did not have an ulcer. Lymph Nodes: Cervical, supraclavicular, submandibular, preauricular, posterior auricular and submental lymph nodes were non-palpable. Lungs: Respiration rhythm and depth was normal. Work of breathing was not increased. Cardiovascular system: Lower Extremity Edema: Not present. Musculoskeletal system: (???NML?? means normal; No swelling, warmth, tenderness, loss of range of motion, or deformity as applicable) Hands: MCP???s: NML PIP???s: NML DIP???s: some soft tissue swelling, full fist and claw Wrists: NML Elbows: bl elbow contracture, mild synovitis Shoulders: nl rom pain with abduction Cervical Spine: rom preserved some pain w rotation, prominent c7/t1 Thoracic Spine: scoliosis Lumbosacral Spine: scoliosis Hips: No ttp but alignment Is abnormal Knees: No swelling Ankles: No swelling, no ttp Feet: Left fot some ip swelling/soft tissue sweeling, r nl Nails: Nail destruction of all fingernails Neurologic: Deep tendon reflexes were 2+ at the bilateral biceps, triceps, brachioradialis, knees and ankles. Sensory & strength exams were normal. The patient exhibited 5/5 strength of the proximal upper/lower extremities and neck flexors/extensors. Skin: Mild rash scalp Laboratory Data: Cbc nl lfts nl Creatinine 1.3 Studies: Impression/Recommendations : Ervin Helms is a 51 y.o. male who presents today with evidence of psoriatic arthritis (elbow ctx, and prolonged am stiffness) who is on mtx for psoriasis. dicussed with him increasing the dose of mtx to 8 tabs q weekly, with labs in 4 weeks, or adding a TNF agent, or potentially participating in a study for Psa. -check esr/crp -hepatitis b/c testing -tb testing -plain films elbow, c spine -would like to get hands as well, but may get as part of study so will hold off -reviewed wit him Enbrel today in clinic, and reading provided. He will call Magui next week to inform of his decision and can bring him back in to review or he can start on therapy. CC: Maciej Szymanski DO documented in this encounter Miscellaneous Notes * Addendum Note - Ted Trimble - 10/14/2017 4:13 PM ESTAddended by: TED TRIMBLE on: 10/14/2017 04:13 PM Modules accepted: Orders documented in this encounter Plan of Treatment Upcoming Encounters Date Type Department Care Team (Late st Contact Info) Description 11/08/2024 3:30 PM EST Office Visit Dermatology at [address] [phone] Prosper Schmidt MD [address] [place] [address], [facility] [place] [address] 12/14/2024 2:40 PM EST Office Visit Cardiology at [address] [phone] Benjie Garrison MD [facility] [place] [address] documented as of this encounter Procedures Procedure Name Priority Date/Time Associated Diagnosis Comments CRP, ACUTE INFLAMMATION Routine 10/14/2017 4:27 PM EST Psoriatic arthritis QUANTIFERON-TB GOLD Routine 10/14/2017 4 :27 PM EST Psoriatic arthritis HEPATITIS C ANTIBODY Routine 10/14/2017 4:27 PM EST Psoriatic arthritis HEPATITIS B SURFACE ANTIBODY Routine 10/14/2017 4:27 PM EST Psoriatic arthritis HEPATITIS B SURFACE ANTIGEN Routine 10/14/2017 4:27 PM EST Psoriatic arthritis SEDIMENTATION RATE Routine 10/14/2017 4: 27 PM EST Psoriatic arthritis documented in this encounter Results * (ABNORMAL) CRP, acute inflammation (10/14/2017 4:27 PM EST) C-Reactive Protein 11.4(H) <=4.9 mg/L [facility] Blood specimen (specimen) 10/14/2017 4:27 PM EST 10/14/2017 4:40 PM EST Narrative Resulting Agency Comment Spec In Lab Ayde Malin DO CHEMISTRY ORDERABL ES Performing Organization Address [facility]/ZIP Co de Phone Number [facility] [place] [address] * (ABNORMAL) Sedimentation rate (10/14/2017 4:27 PM EST) Pathologist [facility] Sedimentation Rate Automated 24(H) 0 - 15 mm/hr [facility] Blood specimen (specimen) 10/14/2017 4:27 PM EST 10/14/2017 4:40 PM EST Narrative Resulting Agency Comment Spec In Lab Ayde Malin DO HEMATOLOGY ORDERAB LES Performing Organization Address [facility]/ZIP Co de Phone Number [facility] [place] [address] * Hepatitis B Surface Antibody (10/14/2017 4:27 PM EST) Hepatitis B Surface Antibody, Quantitative <3.5 IU/L [facility] Comment: HepB Surface Ab Quant: Unvaccinated: < 8.5 IU/L Vaccinated: > 11.5 IU/L Hepatitis B Surface Antibody Negative [facility] Comment: Patient is presumed to be not vaccinated or immune to HBV infection. Expected Results: Vaccinated: Positive Unvaccinated: Negative Blood specimen (specimen) 10/14/2017 4:27 PM EST 10/14/2017 4:40 PM EST Narrative Resulting Agency Comment Spec In Lab Ayde Malin DO CHEMISTRY ORDERABL ES [facility] [place] [address] * QuantiFERON-TB Gold (10/14/2017 4:27 PM EST) Quantiferon-TB Gold Negative Negative [facility] Comment: Nil (IU/mL)= 0.03 TB Ag minus Nil (IU/mL)= 0.00 Mitogen minus Nil (IU/mL)= >10 M. tuberculosis (TB) infection NOT likely ?A negative specimen should have a TB Ag minus Nil value less than 0.35 IU/mL OR a TB Ag minus Nil greater than or equal to 0.35 IU/mL and in addition the TB Ag minus Nil value must be less than 25% of the Nil value. A negative specimen should have a Mitogen minus Nil value greater than or equal to 0.5 IU/mL. ?A negative QuantiFERON-TB Gold IT result does not preclude the possibility of M. tuberculosis infection or tuberculosis disease: false negative results can be due to stage of infection (e.g., specimen obtained prior to the development of cellular immune response), co-morbid conditions which affect immune function, or other individual immunological factors. ?The performance of the QuantiFERON-TB Gold IT test has not been extensively evaluated with specimens from the following groups of individuals: ?1. Individuals who have impaired or altered immune function such as those who have HIV infection or AIDS, those who have transplantation managed with immunosuppressive treatment or others who receive immunosuppressive drugs (e.g., corticosteroids, methotrexate, azathioprine, cancer chemotherapy), and those who have other clinical conditions: diabetes, silicosis, chronic renal failure, hematological disorders (e.g., leukemia and lymphomas), and other specific malignancies (e.g., carcinoma of the head or neck and lung). ?2. Individuals younger than age 17 years. ?3. women. Note: Diagnosing or excluding tuberculosis disease, and assessing the probability of LTBI, require a combination of epidemiological, historical, medical, and diagnostic findings that should be taken into account when interpreting QuantiFERON-TB Gold results. Reference (http://www.cdc.gov/nchstp/tb/) Blood specimen (specimen) 10/14/2017 4:27 PM EST 10/15/2017 10:41 AM EST Narrative Resulting Agency Comment Spec In Lab Ayde Malin DO CHEMISTRY ORDERABL ES Performing Organization Address [facility] [place] [address] * Hepatitis B Surface Antigen (10/14/2017 4:27 PM EST) Hepatitis B Surface Antigen Negative Negative [facility] Blood specimen (specimen) 10/14/2017 4:27 PM EST 10/14/2017 4:40 PM EST Narrative Resulting Agency Comment Spec In Lab Ayde Malin DO CHEMISTRY ORDERABL ES Performing Organization Address [facility] de Phone Number [facility] [place] [address] * Hepatitis C Antibody (10/14/2017 4:27 PM EST) Hepatitis C Antibody Negative Negative [facility] Blood specimen (specimen) 10/14/2017 4:27 PM EST 10/14/2017 4:40 PM EST Narrative Resulting Agency Comment Spec In Lab Ayde Malin DO CHEMISTRY ORDERABL ES Performing Organization Address [facility] [place] [address] * XR Elbow 3 views Complete Left [...] osseous abnormality. 3:59 PM Ayde Malin DO [facility] DX ORDERABLES * XR Cervical Spine 2 Or 3 [...] Gayla Beckford at 10/14/2017 4:56 PM Ayde GAGE DX ORDERABLES documented in this encounter Visit Diagnoses Diagnosis Psoriatic arthritis Psoriatic arthropathy High risk medication use Encounter for long-term (current) use of other medications Psoriasis Other psoriasis Psoriatic arthritis Psoriatic arthropathy Psoriatic arthritis Psoriatic arthropathy documented in this encounter Care Teams Commercial Internship Relationship Specialty Start Date End Date Maciej Szymanski DO [address] [place] [address] PCP - General 09/18/10 09/30/22 documented as of this encounter
--- OUTSIDE RECORDS SUMMARY | 2024-10-08 00:38 | XMS_ITS | Encounter Summary ---
[place] [address] Care Team Providers Care Apartment Community Assistant Manager Name Role Phone Maciej Szymanski DO Primary Care Provider Encounter Details Date Type Department Care Team (Late st Contact Info) Description 10/23/2017 [place] [address] Althea Ag, [facility] Social History Tobacco Use Types Packs/Day Years [...] as of this encounter Progress Notes * Althea Ag - 10/23/2017 1:22 PM EST [facility] Prior Authorization Medication: Enbrel RX Insurance: [employer] Insurance Phone #: [phone] Insurance Fax #: Sent via [employer] Mobile ID #: [id number] Spoke With: N/A IDALIA Reference #: [id number] Date IDALIA Sent: 10-23-2017 Approval Date: 09/23/2017 through 01/21/2018 Pharmacy: [facility] Notes: Patria FRIEDMAN approved 09/23/2017 through 01/21/2018. [facility] will contact patient to initiate new consult and shipping. * Anuel Emerson, SALES REPRESENTATIVE FACILITY SERVICES - 10/23/2017 1:22 PM EST [facility] Prior Authorization Medication: Enbrel RX Insurance: [employer] Insurance Phone #: [phone] Insurance Fax #: [phone] ID #: [id number] Spoke With: PA Reference #: Date PA Sent: 11/04/2017 Approval Date: Approved Pharmacy: [facility] Notes: PA was previously obtained through [facility], but that insurance termed at the end of 2016 and thepatient now has insurance through [employer]. The patient will be required to fill through [facility]. documented in this encounter Plan of Treatment Upcoming Encounters Date Type Department Care Team (Late st Contact Info) Description 11/08/2024 3:30 PM EST Office Visit Dermatology at [address] [phone] Prosper Schmidt MD [address] [place] [address], [facility] [place] [address] 12/14/2024 2:40 PM EST Office Visit Cardiology at [address] [phone] Benjie Garrison MD [facility] [place] [address] documented as of this encounter Visit Diagnoses Not on filedocumented in this encounter Care Teams Apartment Community Assistant Manager Relationship Specialty Start Date End Date Maciej Szymanski DO [address] [place] [address] PCP - General 09/18/10 09/30/22 documented as of this encounter
--- OUTSIDE RECORDS SUMMARY | 2024-10-08 00:38 | XMS_ITS | Encounter Summary ---
[place] [address] Care Team Providers Care Sap Pi Architect Name Role Phone Maciej Szymanski DO Primary Care Provider Encounter Details Date Type Department Care Team (Late st Contact Info) Description 02/19/2019 Telephone [place] [address] Rosalva Almonte Social History Tobacco Use Types [...] * Telephone Encounter - Rosalva Almonte - 02/19/2019 3:09 PM EDT Ervin Helms [id number] Diagnosis: EGD 1. Have you ever had a EGD before? [x] YES [] NO If Yes, Date of Last EGD:__09/21/12 If yes, did you have any problems with the procedure? [] YES [x] NO Explain: What type of sedation was used: ANES 2. Do you take any Blood Thinners? [] YES [x] NO If Yes, type: 3. Do you have a Pacemaker or Defibrillator device? [] YES [x] NO If Yes send [employer] message to [employer] DEVICE CHECK 4. Are you a diabetic? [x] YES [] NO If yes, controlled by meds or diet? __Both 5. Do you have any Allergies to Eggs, Latex or Medications? [x] YES [] NO If Yes, what:____Sulfa 6. Do you take any Oral Iron Supplements (Including multi vitamins)? [] YES [x] NO 7. Do you have a history of three or more abdominal surgeries? [] YES [x] NO 8. Have you had a problem with sedation or anesthesia? [] YES [x] NO 9. Do you have a c-pap machine or oxygen tank? [] C-PAP [] Oxygen [x] NO 10. Do you take prescription narcotic pain medications? [] YES [x] NO 11. You must have a responsible libertarian stay at the facility during your procedure and drive you home? [x] YES 12. Is there any other information you would like to give us to aid in scheduling? Height: _5'7 Weight:_140__ BMI: _21.9___ Age:53 y.o. documented in this encounter Plan of Treatment Upcoming Encounters Date Type Department Care Team (Late st Contact Info) Description 11/08/2024 3:30 PM EST Office Visit Dermatology at [address] [place] [address] Prosper Schmidt MD [address] [facility] [place] [address] 12/14/2024 2:40 PM EST Office Visit Cardiology at [address] [place] [address] Benjie Garrison MD [facility] [place] [address] documented as of this encounter Visit Diagnoses Not on filedocumented in this encounter Care Teams Sap Pi Architect Relationship Specialty Start Date End Date Maciej Szymanski DO [facility] [address] [facility] [address] [place] [address] PCP - General 09/18/10 09/30/22 documented as of this encounter
--- OUTSIDE RECORDS SUMMARY | 2024-10-08 00:38 | XMS_ITS | Encounter Summary ---
Author Organization [facility] Address [facility] [place] [address] Care Team Providers Care Adoption Worker Name Role Phone Maciej Szymanski DO Primary Care Provider Reason for Visit * Reason Comments Diabetes Encounter Details Date Type Department Care Team (Late st Contact Info) Description 05/21/2018 4:00 PM EDT Office [place] [address] [facility] New [facility] [address] [place] [address] Type 2 diabetes mellitus without complication, with [...] Sign Reading Time Taken Comments Blood Pressure 118/75 05/21/2018 3:47 PM EDT Pulse 84 05/21/2018 3:47 PM EDT Temperature - - Respiratory Rate - - Oxygen Saturation - - Inhaled Oxygen Concentration - - Weight 60.8 kg (134 lb) 05/21/2018 3:47 PM EDT Height 172.7 cm (5' 8) 05/21/2018 3:47 PM EDT Body Mass Index 20.37 05/21/2018 3:47 PM EDT documented in this encounter Patient Instructions * Patient Instructions* Umu New APRN - 05/21/2018 4:00 PM EDT Added novolog (lasts 4 hrs) before evening meal when glucose is above 180. Start 1 or 2 units If glucose is under 180 Two hrs after the meal then the novolog dose was correct documented in this encounter Progress Notes * Umu New APRN - 05/21/2018 4:00 PM EDT Office visit note from Ervin Helms. Date of visit 05/21/2018 Reason for visit: Follow-up type 2 DM in fair control. Brief history: Brings written blood glucose log. Occasionally has glucose levels as low as the 50s and 60s and occasionally higher than 200 Complications: None Diabetes regimen: Lantus SoloSTAR pen 11 units twice a day. 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 He states sometimes he craves cookies or asweet but often times he will snack on vegetables Physical activity: Is walking Date of diagnosis of diabetes: 2008 Past medical history: Huang's esophagus, psoriasis, type 2 DM Past surgical history: Moreno placed for scoliosis, cataract surgery Review of systems: All 12 systems reviewed and negative except as noted in history Physical exam: Appearance: Scoliosis is evident. Blood pressure 118/75. Weight 134 pounds. Eyes: Noretinopathy with greenlight exam. Neck: No thyromegaly or lymphadenopathy. Heart: Regular rate and rhythm. Lungs are clear to auscultation. Feet: With skin changes consistent with psoriasis on dorsalaspect. Pulses are present. Neuro: Normal sensation to 10 G's of pressure. He is wearing diabetic shoes and inserts which he states are very helpful to prevent him from rotating his ankles inward. Nails are thick. 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 States he had a small amount of macaroni and cheese, a small amount of soup and a very small piece of cake. Evening meal varies, usually has some chicken or pork and vegetables Impression and plan: DM type 2 in fair control. HGBA1c [...] office visit with 27 minutes spent counseling [id number] with patient in the management of glucose levels and adding bolus insulin before evening meal when glucose levels are elevated Recent Results (from the past 72 hour(s)) Hemoglobin A1c Result Value Ref Range Hemoglobin A1C 8.2 (H) 4.3 - 5.6 % Est Avg Gluc 189 mg/dL LDL Cholesterol, Direct Result Value Ref Range LDL Chol Direct 89 mg/dL documented in this encounter Plan of Treatment Upcoming Encounters Date Type Department Care Team (Late st Contact Info) Description 11/08/2024 3:30 PM EST Office Visit Dermatology at [address] [phone] Prosper Schmidt MD [address] [place] [address], [facility] [place] [address] 12/14/2024 2:40 PM EST Office Visit Cardiology at [address] [phone] Benjie Garrison MD [facility] [place] [address] documented as of this encounter Visit Diagnoses Diagnosis Type 2 diabetes mellitus without complication, with long-term current use of insulin documented in this encounter Care Teams Adoption Worker Relationship Specialty Start Date End Date Maciej Szymanski DO [facility] [address] [place] [address] PCP - General 09/18/10 09/30/22 documented as of this encounter
--- OUTSIDE RECORDS SUMMARY | 2024-10-08 00:38 | XMS_ITS | Encounter Summary ---
Author Organization [facility] Address [facility] [place] [address] Care Team Providers Care Transfer Agent Name Role Phone Maciej Szymanski DO Primary Care Provider Reason for Visit * Reason Comments Psoriasis Encounter Details Date Type Department Care Team (Late st Contact Info) Description 09/26/2017 3:15 PM EST Office Visit Dermatology at [address] [place] [address] Prosper Schmidt MD [address] [place] [address], [facility] [place] [address] Psoriasis Social History Tobacco Use Types Packs/Day [...] Progress Notes * Prosper Schmidt MD - 09/26/2017 3:15 PM EST PROBLEM: Follow up psoriasis on methotrexate. Ervin follows up and is doing beautifully. His psoriasis is well controlled with the exception of one plaque on his right flank. It is about a silver dollar size plaque. The patient complains of worsening arthritis. He is stiff in the mornings when he gets up and it works out during the course of the day. He complains about his wrists and elbows, sometimes his shoulders in particular. Physical examination reveals one plaque on the right flank but otherwise no other psoriasis on the elbow or knees. He has a few almost guttate small papules in the periumbilical area. He does not think this is from his insulin injections. A/P: Psoriasis, well controlled with methotrexate. a. Continue current dosing, taking 6 of the 2.5 mg tablets p.o. q. week for a total of 15 mg. We will call in #78 with zero refills to his [facility] pharmacy in [facility]. He takes his medication on Mondays. b. Continue folate 1 mg p.o. q. day every day except the day he takes his methotrexate, namely Mondays. He was given #90 for a 2-month supply with 3 refills in 02/2017. c. Return to clinic in another 3 months for repeat check. Repeat labs at that time. We will fax new standing orders to [facility] to renew his lab orders. d. Patient complains about worsening arthritis despite being on methotrexate. Dr. Szymanski is working on him trying to find another NSAID that might work better for him. His symptoms do seem convincing for psoriatic arthritis. If he does not improve with NSAIDs recommend referral to Dr. Zelaya. e. Could consider intralesional Kenalog injection 5 mg per mL to psoriasis plaque right flank. cc: Maciej Szymanski DO documented in this encounter Plan of Treatment Upcoming Encounters Date Type Department Care Team (Late st Contact Info) Description 11/08/2024 3:30 PM EST Office Visit Dermatology at [address] [phone] Prosper Schmidt MD [address] [place] [address], [facility] [place] [address] 12/14/2024 2:40 PM EST Office Visit Cardiology at [address] [phone] Benjie Garrison MD [facility] [place] [address] documented as of this encounter Visit Diagnoses Diagnosis Psoriasis Other psoriasis documented in this encounter Care Teams Transfer Agent Relationship Specialty Start Date End Date Maciej Szymanski DO [address] [place] [address] PCP - General 09/18/10 09/30/22 documented as of this encounter
--- OUTSIDE RECORDS SUMMARY | 2024-10-08 00:39 | XMS_ITS | Encounter Summary ---
Author Organization [facility] [place] [address] Care Team Providers Care Payroll Benefits Administrator Name Role Phone Maciej Szymanski DO Primary Care Provider Reason for Visit * Reason Comments Follow-up Encounter Details Date Type Department Care Team (Late st Contact Info) Description 11/17/2014 4:30 PM EST Office Visit Dermatology at [address] [place] [phone] Prosper Schmidt MD [address] [place] [address], [place] [address] Psoriasis Discharge Disposition: Home Social History Tobacco Use Types Packs/Day Years Used Date Smoking Tobacco: Former Cigarettes 0.3 5 0 12/28/1983 - 12/27/1988 Alcohol Use Standard Drinks/Week Comments No 0 (1 standard drink = 0.6 oz pur e alcohol) Sex and Gender Information Value Date Recorded Sex Assigned at Not on file Gender Identity Not on file Sexual Orientation Not on file documented as of this encounter Patient Instructions * Patient Instructions* Tanja Townsend LPN - 11/17/2014 5:00 PM EST [facility] Psoriasis: After Your Visit Your Care Instructions Psoriasis (say hbc-DT-fo-noble) is a long-term skin problem that causes thick, white, silvery, or red patches on the skin. The patches may be small or large, and they occur most often on the knees, elbows, scalp, hands, feet, or lower back. The skin may be scaly. If the condition is severe, your skin can become itchy and tender. Psoriasisalso can be embarrassing if the patches are on visible areas. You can treat psoriasis with good care at home and with medicine from your doctor. You may put medicine on your skin and take pills or have shots to stop the redness and swelling. Your doctor also may suggest ultraviolet light treatments. Follow-up care is a nicholson part of your treatment and safety. Be sure to make and go to all appointments, and call your doctor if you are having problems. It???s also a good idea to know your test results and keep a list of the medicines you take. How can you care for yourself at home? ?? If your doctor prescribes medicine, use it exactly as prescribed. Call your doctor if you think you are having a problem with your medicine. ?? Keep your skin moist. After bathing, put an ointment, cream, or lotion on your skin while it is still damp. This seals in moisture. Use eufp-rmp-othssxi products that your doctor suggests. These may include Cetaphil, Lubriderm, or Eucerin. Petroleum jelly (such as Vaseline) and vegetable shortening (such as Crisco) also work. ?? If you have psoriasis on your scalp, use a mild tar shampoo, such as Neutrogena T/Gel, Polytar, or Zetar. Other scalp lotions, such as Dritho-Scalp, can be applied for several hours and then washed out. Shampoos that contain zinc pyrithione (such as Danex or Head & Shoulders), or selenium sulfide (such as Exsel or Selsun) may also help. ?? Gently soften and remove skin crusts. Put cream on the crusts and then peel off loose crusts. Removing crusts may help creams and lotions get into the skin. However, peel off crusts carefully so that you do not irritate your skin. ?? Follow your doctor's advice for sunlight or ultraviolet light treatment. ?? Avoid harsh skin products, such as those that contain alcohol. ?? Cover your skin in cold weather. ?? Try to prevent sunburn. Although short periods of sun exposure reduce psoriasis in most people, too much sun can damage the skin and cause skin cancer. In addition, sunburns can trigger psoriasis.Use sunscreen on areas of your skin that do not have psoriasis. Make sure the sunscreen blocks ultraviolet rays (both UVA and UVB) and has a sun protection factor (SPF) of at least 15. Use it every day, even when it is cloudy. Some doctors may recommend a higher SPF, such as 30. ?? Take care to avoid accidents such as cutting or scraping your skin. An injury to the skin can cause psoriasis patches to form anywhere on the body, including the area of the injury. ?? Avoid tight shoes, clothing, watchbands, and hats. These may irritate your skin. ?? Try to control stress and anxiety. They may cause psoriasis to appear suddenly or can make symptoms worse. ?? Use a vaporizer or humidifier to add moisture to your bedroom. Follow the directions for cleaning the machine. ?? Seek support from family and friends. Talk to a counselor or other professional if you feel sad about your condition and need more help. When should you call for help? Call your doctor now or seek immediate medical care if: ?? You have signs of infection, such as: ?? Increased pain, swelling, warmth, or redness. ?? Red streaks leading from the area. ?? Pus draining from the area. ?? A fever. Watch closely for changes in your health, and be sure to contact your doctor if: ?? Your skin is more red and irritated than usual, especially if you also have another illness. ?? You need to talk to someone about how you are coping with the illness. Where can you learn more? Visit our health information library at [email or web address] You can also view health information on [employer], your personal patient account. Log in or sign up today. Enter U759 in the search box to learn more about Psoriasis: After Your Visit. ?? [id number] j-Grab. Care instructions adapted under license by [facility]. This care instruction is for use with your licensed healthcare professional. If you have questions about a medical condition or this instruction, always ask your healthcare professional. Healthwise[employer] disclaims any warranty or liability for your use of this information. Content Version: 9.9.714801; Last Revised: June 01, 2013 documented in this encounter Progress Notes * Prosper Schmidt MD - 11/17/2014 5:07 PM EST Problems: 1. Three-month skin checkup. 2. Followup psoriasis. 3. History of psoriatic arthritis, controlled with Aleve. Ervin follows up and has been doing well. The clobetasol scalp solution has really helped his scalp, and otherwise his psoriasis is remaining pretty much clear on his current dosing of one 5-mg a week. Physical examination confirms that the patchy, micaceous scaling of the psoriasis on the forehead to the hairline and extending back into the scalp now is largely resolved. There is the tiniest little bit of erythema and some light scaling on the forehead at the frontal scalp hairline. The ear is not involved. The occipital scalp is not involved. His trunk and extremities are clear. Assessment and Plan: Psoriasis, well controlled. a. Continue methotrexate at current dosing one 5-mg p.o. each week; #72 dispensed for a three-month supply with zero refills. b. Take six of the 2.5-mg tablets p.o. each week. c. Continue to take folate 1 mg p.o. daily every day except the day of the methotrexate dosing. He was given a one-year supply today, #90 with three refills. d. He may continue to use triamcinolone cream b.i.d. p.r.n. for mild flares in the groin. e. Continue clobetasol scalp solution p.r.n. to scalp areas of involvement. f. Methotrexate labs from November 08, 2014, were within normal limits. Repeat again in three months. Return to clinic here in three months for repeat check. Note: The patient was recently seen by Rheumatology in [place] who advised the patient to stay on his current therapies (this includes Aleve two tablets b.i.d.) to help control his arthritic symptoms. COPY: Maciej Szymanski D.O. documented in this encounter Plan of Treatment Upcoming Encounters Date Type Department Care Team (Late st Contact Info) Description 11/08/2024 3:30 PM EST Office Visit Dermatology at [address] [phone] Prosper Schimdt MD [address] [facility], [facility] [place] [address] 12/14/2024 2:40 PM EST Office Visit Cardiology at [address] [phone] Benjie Garrison MD [facility] [place] [address] documented as of this encounter Visit Diagnoses Diagnosis Psoriasis Other psoriasis documented in this encounter Care Teams Payroll Benefits Administrator Relationship Specialty Start Date End Date Maciej Szymanski DO [employer] [address] [facility] [address] [place] [address] PCP - General 09/18/10 09/30/22 documented as of this encounter
--- OUTSIDE RECORDS SUMMARY | 2024-10-08 00:39 | XMS_ITS | Encounter Summary ---
Author Organization [facility] Address [facility] [place] [address] Care Team Providers Care Photographic Artist Name Role Phone StephonMaciej hunter Primary Care Provider Encounter Details Date Type Department Care Team (Late st Contact Info) Description 12/08/2015 Orders Only Hematology [place] [address] Major Ibrahim MD [facility] [address] [place] [address] Social History Tobacco Use Types Packs/Day Years [...] PM EST Office Visit Dermatology at [address] [place] [address] Prosper Schmidt MD [address], [place] [address] 12/14/2024 2:40 PM EST Office Visit Cardiology at [address] [place] [address] Benjie Garrison MD [facility] [place] [address] documented as of this encounter Visit Diagnoses Not on filedocumented in this encounter Care Teams Photographic Artist Relationship Specialty Start Date End Date Maciej Szymanski DO [address] [place] [address] [address] [place] [address] PCP - General 09/18/10 09/30/22 documented as of this encounter
--- OUTSIDE RECORDS SUMMARY | 2024-10-08 00:39 | XMS_ITS | Encounter Summary ---
Author Organization [facility] Address [facility] [place] [address] Care Team Providers Care Emergency Medcl Emt Name Role Phone Stephon, Maciej ORTIZ Primary Care Provider Encounter Details Date Type Department Care Team (Latest Contact Info) Description 02/19/2016 2:00 PM EDT Laboratory [place] [address] Type 2 diabetes mellitus with hyperglycemia Social History Tobacco Use Types Packs/Day Years [...] PM EST Office Visit Dermatology at [address] [place] [address] Prosper Schmidt MD [address] [facility], [place] [place] DERMATOLOGY [place], [place] [address] 12/14/2024 2:40 PM EST Office Visit Cardiology at [address] [place] [address] Benjie Garrison MD [facility] [place] [address] documented as of this encounter Procedures Procedure Name Priority Date/Time Associated Diagnosis Comments CREATININE STAT 02/19/2016 2:32 PM EDT Type 2 diabetes mellitus with hyperglycemia HEMOGLOBIN A1C STAT 02/19/2016 2:32 PM EDT Type 2 diabetes mellitus with hyperglycemia documented in this encounter Results * (ABNORMAL) Creatinine (02/19/2016 2:32 PM EDT) Creatinine 1.30 0.80 - 1.50 mg/dL [facility] Comment: Please note that the pediatric reference intervals supplied above were not validated at [facility]. Results from pediatric patients should be interpreted in conjunction to the patient's age, height and muscle mass. Est Glomerular Filtration Rate 59(L) >=60 [facility] Comment: This estimated GFR (eGFR) value [...] the following links into your internet browser. [email or web address] Blood specimen (specimen) 02/19/2016 2:32 PM EDT 02/19/2016 2:53 PM EDT Narrative Resulting Agency Comment Spec In Lab Bernardo Britton MD CHEMISTRY ORDERABLES [facility] [place] [address] * (ABNORMAL) Hemoglobin A1c (02/19/2016 2:32 PM EDT) Hemoglobin A1c 7.1(H) 4.3 - 5.6 % [facility] Comment: Reference Range: 4.3 - [...] 36: Suppl. 1, S67-74 Estimated Average Glucose 157 mg/dL [facility] Comment: eAG equivalents for HbA1c percentages: HbA1c(%) ?eAG(mg/dL) 6.0 ?126 6.5 ?140 7.0 ?154 7.5 ?169 8.0 ?183 8.5 ?197 9.0 ?212 9.5 ?226 10.0 ? 240 Limitations: The eAG calculation has not been validated on women, individuals below 18 years old and above 70 years old, and individuals with hemoglobinopathies. Additional resources are available on the ADA website: [email or web address] Jon MURPHY, Carol J, Tino R, et al. ??Translating the A1C assay into estimated average glucose values. ??Diabetes Care 2008:31(8):3836-8779. Blood specimen (specimen) 02/19/2016 2:32 PM EDT 02/19/2016 2:53 PM EDT Narrative Resulting Agency Comment Spec In Lab Bernardo Britton MD CHEMISTRY ORDERABLES [facility] [place] [address] documented in this encounter Visit Diagnoses Diagnosis Type 2 diabetes mellitus with hyperglycemia Type II or unspecified type diabetes mellitus without mention of complication, not stated as uncontrolled documented in this encounter Care Teams Emergency Medcl Emt Relationship Specialty Start Date End Date Maciej Szymanski DO [address] [place] [address] PCP - General 09/18/10 09/30/22 documented as of this encounter
--- OUTSIDE RECORDS SUMMARY | 2024-10-08 00:39 | XMS_ITS | Encounter Summary ---
Author Organization [facility] Address [facility] [place] [address] Care Team Providers Care Principal Embedded Software Engineer Name Role Phone Maciej Szymanski DO Primary Care Provider Reason for Visit * Reason Comments IV Medication Sigifredo, 3rd of 3 in fusions Encounter Details Date Type Department Care Team (Late st Contact Info) Description 12/29/2015 11:00 AM EST Infusion Hematology Oncology at [address] [address] Iron deficiency anemia, unspecified iron deficiency anemia type Social History Tobacco Use Types Packs/Day Years [...] Sign Reading Time Taken Comments Blood Pressure 119/67 12/29/2015 10:59 AM EST Pulse 88 12/29/2015 10:59 AM EST Temperature 36.3 ??C (97.3 ??F) 12/29/2015 10:[address] Respiratory Rate 20 12/29/2015 10:59 AM EST Oxygen Saturation 100% 12/29/2015 10:59 AM EST Inhaled Oxygen Concentration - - Weight - - Height - - Body Mass Index - - documented in this encounter Progress Notes * Karen Truong RN - 12/29/2015 11:02 AM EST INFUSION THERAPY ADMINISTRATION NOTES DIAGNOSIS: Iron Deficiency REASON FOR VISIT: Venofer, 3rd of 3 infusions SUBJECTIVE Ervin offers no complaints. OBJECTIVE LAB DATA: WNL Pre administration: Chemotherapy orders independently verified for drug name, route, and dosage per patient's height, weight and BSA by Karen Truong RN and Raymon Vazquez [facility]. REACTIONS (DESCRIPTION, TIME, INTERVENTION AND EFFECTIVENESS) none ASSESSMENT Ervin was awake, alert and tolerated treatment well. Ervin waited for 30 minutes after his infusion to leave the clinic. PLAN Return to clinic as needed. documented in this encounter Plan of Treatment Upcoming Encounters Date Type Department Care Team (Late st Contact Info) Description 11/08/2024 3:30 PM EST Office Visit Dermatology at [address] [phone] Prosper Schmidt MD [address] [place] [address], [facility] [place] [address] 12/14/2024 2:40 PM EST Office Visit Cardiology at [address] [phone] Benjie Garrison MD [facility] [place] [address] documented as of this encounter Visit Diagnoses Diagnosis Iron deficiency anemia, unspecified iron deficiency anemia type documented in this encounter Administered Medications Inactive Administered Medications - up to 3 most recent administrations Medication Order MAR Action Action Date Dose Rate Site iron sucrose (VENOFER) 300 mg in sodium chloride 0.9% 265 mL 300 mg, Intravenous, ONCE, 1 dose, On Fri12/29/15 at 1100, Administer over 120 Minutes, Patients should be closely monitored for signs of hypersensitivity during and for at least 30 min after each administration. Dose 3 of 3. Given 12/29/2015 11:26 AM EST 300 mg 133 mL/hr documented in this encounter Care Teams Principal Embedded Software Engineer Relationship Specialty Start Date End Date Maciej Szymanski DO [address] [place] [address] PCP - General 09/18/10 09/30/22 documented as of this encounter
--- OUTSIDE RECORDS SUMMARY | 2024-10-08 00:39 | XMS_ITS | Encounter Summary ---
Author Organization [facility] Address [facility] [place] [address] Care Team Providers Care Chief Executive Or Managing Director Name Role Phone StephonMaciej cardona Primary Care Provider Reason for Visit * Reason Comments Medication Refill Encounter Details Date Type Department Care Team (Late st Contact Info) Description 01/20/2015 [place] [address] [facility] [place] [address] Social History Tobacco Use Types Packs/Day Years [...] 3:30 PM EST Office Visit Dermatology at [address] [place] [address] Prosper Schmidt MD [address] [facility] [address], [place] [address] 12/14/2024 2:40 PM EST Office Visit Cardiology at [address] [place] [address] Benjie Garrison MD [facility] [place] [address] documented as of this encounter Visit Diagnoses Not on filedocumented in this encounter Care Teams Chief Executive Or Managing Director Relationship Specialty Start Date End Date Maciej Szymanski DO [address] [place] [address] PCP - General 09/18/10 09/30/22 documented as of this encounter
--- OUTSIDE RECORDS SUMMARY | 2024-10-08 00:39 | XMS_ITS | Encounter Summary ---
Author Organization [facility] Address [facility] [place] [address] Care Team Providers Care Diabetes Clinical Manager Name Role Phone StephonMaciej hunter Primary Care Provider [phone] Encounter Details Date Type Department Care Team (Late st Contact Info) Description 11/17/2014 Orders [place] [address] [employer] New APRN [facility] [place] [address] Type II or unspecified type diabetes mellitus without mention of complication, uncontrolled Social History Tobacco Use Types Packs/Day Years [...] 3:30 PM EST Office Visit Dermatology at [address] [place] [address] Prosper Schmidt MD [address] [facility] [address], RYAN [place] [address] 12/14/2024 2:40 PM EST Office Visit Cardiology at [address] [place] [address] Benjie Garrison MD [facility] [place] [place] [address] documented as of this encounter Results * Creatinine (11/21/2014 2:39 PM EST) Creatinine 1.12 0.80 - 1.50 mg/dL [facility] Comment: Please note that the pediatric reference intervals supplied above were not validated at [facility]. Results from pediatric patients should be interpreted in conjunction to the patient's age, height and muscle mass. Est Glomerular Filtration Rate >60 >=60 [facility] Comment: This estimated GFR (eGFR) value was [...] the following links into your internet browser. [email or web address] Blood specimen (specimen) 11/21/2014 2:39 PM EST 11/21/2014 2:51 PM EST Narrative Resulting Agency Comment Spec In Lab Bernardo Britton MD CHEMISTRY ORDERABLES [facility] * (ABNORMAL) Hemoglobin A1c (11/21/2014 2:39 PM EST) Hemoglobin A1c 8.0(H) <=5.6 % [facility] Comment: Reference Range: 4.3 - 5.6% 5.7 - 6.4% - Increased Risk of Developing Diabetes Mellitus 6.5% - Consistent with diagnosis of Diabetes Mellitus In the absence of hyperglycemia (i.e. plasma glucose > 200 mg/dL) or classic symptoms of hyperglycemia a repeat measurement of HbA1c should be performed on a separate sample to confirm the diagnosis. Diagnosis and Classification of Diabetes Mellitus, Diabetes Care 2013; 36: Suppl. 1, S67-74 Estimated Average Glucose 183 mg/dL [facility] Comment: eAG equivalents for HbA1c percentages: HbA1c(%) ?eAG(mg/dL) 6.0 ?126 6.5 ?140 7.0 ?154 7.5 ?169 8.0 ?183 8.5 ?197 9.0 ?212 9.5 ?226 10.0 ? 240 Limitations: The eAG calculation has not been validated on women, individuals below 18 years old and above 70 years old, and individuals with hemoglobinopathies. Additional resources are available on the ADA website: http://Birdi.com/DHMCadacalc Jon MURPHY, Carol J, Tino R, et al. ??Translating the A1C assay into estimated average glucose values. ??Diabetes Care 2008:31(8):3636-6226. Blood specimen (specimen) 11/21/2014 2:39 PM EST 11/21/2014 2:50 PM EST Narrative Resulting Agency Comment Spec In Lab Bernardo Britton MD CHEMISTRY ORDERABLES [facility] documented in this encounter Visit Diagnoses Diagnosis Type II or unspecified type diabetes mellitus without mention of complication, uncontrolled documented in this encounter Care Teams Diabetes Clinical Manager Relationship Specialty Start Date End Date Maciej Szymanski DO [address] [place] [address] [address] [place] [address] PCP - General 09/18/10 09/30/22 documented as of this encounter
--- OUTSIDE RECORDS SUMMARY | 2024-10-08 00:39 | XMS_ITS | Encounter Summary ---
[place] [address] Care Team Providers Care Track Service Worker Name Role Phone StephonMaciej hunter Primary Care Provider Encounter Details Date Type Department Care Team (Late st Contact Info) Description 08/16/2015 Notes [place] [address] Astrid Duarte LPN Social History Tobacco Use Types Packs/Day [...] as of this encounter Progress Notes * Astrid Duarte LPN - 08/16/2015 8:27 AM EDT Statement of certifying physician and office note dated 05/22/15 hand signed 08/15/[address] Britton in agreement of need for therapeutic shoes faxed to [facility]. documented in this encounter Plan of Treatment Upcoming Encounters Date Type Department Care Team (Late st Contact Info) Description 11/08/2024 3:30 PM EST Office Visit Dermatology at [address] [place] [address] Prosper Schmidt MD [address] [facility], RYAN Christoph [place] [address] 12/14/2024 2:40 PM EST Office Visit Cardiology at [address] [place] [address] Benjie Garrison MD [facility] [place] [address] documented as of this encounter Visit Diagnoses Not on filedocumented in this encounter Care Teams Track Service Worker Relationship Specialty Start Date End Date Maciej Szymanski DO [address] [facility] 1 [place] [address] PCP - General 09/18/10 09/30/22 documented as of this encounter
--- OUTSIDE RECORDS SUMMARY | 2024-10-08 00:39 | XMS_ITS | Encounter Summary ---
Author Organization [facility] [place] [address] Care Team Providers Care Senior Software Analyst Name Role Phone Maciej Szymanski DO Primary Care Provider Encounter Details Date Type Department Care Team (Late st Contact Info) Description 12/12/2016 Notes [place] [address] Astrid Duarte LPN Social History Tobacco Use [...] Progress Notes * Astrid Duarte LPN - 12/12/2016 4:12 PM EST Images from the original note were not included. Ervin Helms?? Male, 50 y.o., 1965 Weight: 64.9 kg (143 lb) Home: PCP: aMciej Szymanski DO myD-H: Code Exp Next Appt: 12/25/2016 ?? Message Received: Today ? Romina Flowers Gail, LPN ? Appt made 12/25 ? Previous Messages ?? ----- Message ----- ? From: Astrid Duarte LPN ? Sent: 11/26/2016 ??12:14 PM ? To: [facility] Endocrinology Inspector [employer] Please contact patient for f/u appointment. Thanks Astrid ?? documented in this encounter Plan of Treatment Upcoming Encounters Date Type Department Care Team (Late st Contact Info) Description 11/08/2024 3:30 PM EST Office Visit Dermatology at [address] [address] Prosper Schmidt MD [address] [place] [address], [facility] [place] [address] 12/14/2024 2:40 PM EST Office Visit Cardiology at [address] [address] Benjie Garrison MD [facility] [place] [address] documented as of this encounter Visit Diagnoses Not on filedocumented in this encounter Care Teams Senior Software Analyst Relationship Specialty Start Date End Date Maciej Szymanski DO [address] [place] [address] [address] PCP - General 09/18/10 09/30/22 documented as of this encounter
--- OUTSIDE RECORDS SUMMARY | 2024-10-08 00:39 | XMS_ITS | Encounter Summary ---
Author Organization [facility] Address [facility] [place] [address] Care Team Providers Care Bacon Skin Lifter Name Role Phone StephonMaciej hunter Primary Care Provider Encounter Details Date Type Department Care Team (Late st Contact Info) Description 05/24/2015 Orders [place] [address] Nelly Obrien MD [facility] [place] [address] Diabetes mellitus type 2, uncontrolled Social History Tobacco Use Types Packs/Day [...] 3:30 PM EST Office Visit Dermatology at [place] [address] [facility] [address] [place] [address] Prosper Schmidt MD [address] [facility] [address], RYAN [place] [address] 12/14/2024 2:40 PM EST Office Visit Cardiology at [address] [place] [address] Benjie Garrison MD [facility] [place] [place] [address] documented as of this encounter Visit Diagnoses Diagnosis Diabetes mellitus type 2, uncontrolled Type II or unspecified type diabetes mellitus without mention of complication, uncontrolled documented in this encounter Care Teams Bacon Skin Lifter Relationship Specialty Start Date End Date Maciej Szymanski DO [address] [place] [address] PCP - General 09/18/10 09/30/22 documented as of this encounter
--- OUTSIDE RECORDS SUMMARY | 2024-10-08 00:39 | XMS_ITS | Encounter Summary ---
Author Organization [facility] Address [facility] [place] [address] Care Team Providers Care Working Manager Name Role Phone Maciej Szymanski DO Primary Care Provider [phone] Encounter Details Date Type Department Care Team (Late st Contact Info) Description 08/04/2015 4:45 PM EDT Office Visit Dermatology at [address] [address] Prosper Schmidt MD [address] [place] [address], [facility] [place] [address] Visit for suture removal Social History Tobacco Use Types Packs/Day Years [...] Progress Notes * Prosper Schmidt MD - 08/04/2015 5:25 PM EDT Suture removal per [facility] nursing staff. Biopsy site well-healed. Pathology consistent with follicular cyst. May DC care, leave open to air. GI workup for anemia still underway. Hold methotrexate until anemia is clarified. documented in this encounter Plan of Treatment Upcoming Encounters Date Type Department Care Team (Late st Contact Info) Description 11/08/2024 3:30 PM EST Office Visit Dermatology at [address] [address] Prosper Schmidt MD [address] [facility], [facility] [place] [address] 12/14/2024 2:40 PM EST Office Visit Cardiology at [address] [place] [address] Benjie Garrison MD [facility] [place] [address] documented as of this encounter Visit Diagnoses Diagnosis Visit for suture removal Encounter for removal of sutures documented in this encounter Care Teams Working Manager Relationship Specialty Start Date End Date Maciej Szymanski DO [address] [facility] 1 [place] [address] PCP - General 09/18/10 09/30/22 documented as of this encounter
--- OUTSIDE RECORDS SUMMARY | 2024-10-08 00:39 | XMS_ITS | Encounter Summary ---
Author Organization [facility] Address [facility] [place] [address] Care Team Providers Care Whiteprinting Machine Operator Name Role Phone StephonMaciej hunter Primary Care Provider Encounter Details Date Type Department Care Team (Late st Contact Info) Description 07/04/2016 Refill Dermatology at [address] [address] Daisy Keita LPN Psoriasis Social History Tobacco Use Types Packs/Day [...] PM EST Office Visit Dermatology at [address] [address] Prosper Schmidt MD [address] [place] [address], [facility] DERMATOLOGY [place], [place] [address] 12/14/2024 2:40 PM EST Office Visit Cardiology at [address] [address] Benjie Garrison MD [facility] C[facility] [place] [address] documented as of this encounter Visit Diagnoses Diagnosis Psoriasis Other psoriasis documented in this encounter Care Teams Whiteprinting Machine Operator Relationship Specialty Start Date End Date Maciej Szymanski DO [address] [place] [address] PCP - General 09/18/10 09/30/22 documented as of this encounter
--- OUTSIDE RECORDS SUMMARY | 2024-10-08 00:39 | XMS_ITS | Encounter Summary ---
Author Organization [facility] Address [facility] [place] [address] Care Team Providers Care Photographic Press Screwmaker Name Role Phone Maciej Szymanski DO Primary Care Provider Reason for Visit * Reason Onset Date Comments Medication Refill 11/11/2014 Encounter Details Date Type Department Care Team (Late st Contact Info) Description 11/11/2014 Refill Dermatology at [address] [address] Helen Cardoso RN Psoriasis Social History Tobacco Use Types Packs/Day [...] encounter Miscellaneous Notes * Telephone Encounter - Helen Cardoso RN - 11/11/2014 1:35 PM EST Prescription called in to [facility] for Methotrexate 2.5 mg tablets. Take 6 tablets once a week by mouth. Disp 6 tablets, Refill 0 Scheduled to return to clinic next week. documented in this encounter Plan of Treatment Upcoming Encounters Date Type Department Care Team (Late st Contact Info) Description 11/08/2024 3:30 PM EST Office Visit Dermatology at [place] [address] [facility] [place] [address] Prosper Schmidt MD [address] [facility], [address] Christ[place] [address] 12/14/2024 2:40 PM EST Office Visit Cardiology at [address] [place] [address] Benjie Garrison MD [facility] [place] [address] documented as of this encounter Visit Diagnoses Diagnosis Psoriasis Other psoriasis documented in this encounter Care Teams Photographic Press Screwmaker Relationship Specialty Start Date End Date Maciej Szymanski DO [address] [facility] 1 [place] [address] PCP - General 09/18/10 09/30/22 documented as of this encounter
--- OUTSIDE RECORDS SUMMARY | 2024-10-08 00:39 | XMS_ITS | Encounter Summary ---
Author Organization [facility] [place] [address] Care Team Providers Care Prospecting Observer Name Role Phone Maciej Szymanski DO Primary Care Provider Encounter Details Date Type Department Care Team (Late st Contact Info) Description 11/28/2016 Notes [place] [address] Astrid Duarte LPN Social History Tobacco Use [...] Progress Notes * Astrid Duarte LPN - 11/28/2016 12:27 PM EST Images from the original note were not included. Ervin Helms?? Male, 50 y.o., 1965 Weight: 64.9 kg (143 lb) Home: PCP: Maciej Szymanski DO myD-H: Pending Next Appt: 01/17/2017 ?? Message Received: Today ? Romina Flowers Gail, LPN ? Sending letter ? Previous Messages ?? ----- Message ----- ? From: Astrid Duarte LPN ? Sent: 11/26/2016 ??12:14 PM ? To: [facility] Endocrinology [place] Please contact patient for f/u appointment. Thanks Astrid documented in this encounter Plan of Treatment Upcoming Encounters Date Type Department Care Team (Late st Contact Info) Description 11/08/2024 3:30 PM EST Office Visit Dermatology at [address] [address] Prosper Schmidt MD [address] [place] [address], [facility] [place] [address] 12/14/2024 2:40 PM EST Office Visit Cardiology at [address] [address] Benjie Garrison MD [facility] [place] [address] documented as of this encounter Visit Diagnoses Not on filedocumented in this encounter Care Teams Prospecting Observer Relationship Specialty Start Date End Date Maciej Szymanski DO [address] [place] [address] [facility] 1 [place] [address] PCP - General 09/18/10 09/30/22 documented as of this encounter
--- OUTSIDE RECORDS SUMMARY | 2024-10-08 00:39 | XMS_ITS | Encounter Summary ---
Author Organization [facility] [place] [address] Care Team Providers Care Electro Mechanical Designer Name Role Phone Maciej Szymanski DO Primary Care Provider Reason for Visit * Reason Comments Follow-up Psoriasis Encounter Details Date Type Department Care Team (Late st Contact Info) Description 08/25/2015 1:45 PM EDT Office Visit Dermatology at [address] [place] [address] Prosper Schmidt MD [address] [facility] [address], [place] [address] Psoriasis Social History Tobacco Use Types Packs/Day [...] this encounter Patient Instructions * Patient Instructions* Christina Wolfe LPN - 08/25/2015 2:28 PM EDT Images from the original note were not included. [facility] Psoriasis: After Your Visit Your Care Instructions Psoriasis (say yrj-IR-ow-noble) is a long-term skin problem that causes [...] still damp. This seals in moisture. Use qyij-sma-ewxuikv products that your doctor suggests. These may [...] more? Visit our health information library at [email or web address] You can also view health information on [employer]Ox, your personal patient account. Log in or sign up today. Enter U759 in the search box to learn more about Psoriasis: After Your Visit. ?? [id number] [employer]. Care instructions adapted under license by [facility]. This care instruction is for use with your licensed healthcare professional. If you have questions about a medical condition or this instruction, always ask your healthcare professional. [employer] disclaims any warranty or liability for your use of this information. Content Version: 10.4.954174; Current as of: January 05, 2014 documented in this encounter Progress Notes * Prosper Schmidt MD - 08/25/2015 2:48 PM EDT Problem: Followup psoriasis, flaring off methotrexate; anemia workup in progress. Ervin follows up, and he is here today because his psoriasis is flaring further. His GI workup continues. Dr. Szymanski has further tests still planned. Physical examination today reveals small papules of psoriasis over his abdomen and on the volar forearms. They are slightly itchy. He was clear previously, so this is a big change for him. Assessment and Plan: Psoriasis, moderately flaring off methotrexate. a. I am reluctant to give him any systemic therapy until we find the trigger for his anemia. b. Today we discussed the option of phototherapy, but the patient says he tends to burn easily and tans rarely despite his brown eyes and type 2 Aguiar pigmentation appearance. c. I recommended that we begin triamcinolone in the 1-pound jar, applying b.i.d. to affected areas. d. Await further anemia workup results. COPY: Maciej Szymanski D.O. documented in this encounter Plan of Treatment Upcoming Encounters Date Type Department Care Team (Late st Contact Info) Description 11/08/2024 3:30 PM EST Office Visit Dermatology at [address] [address] Prosper Schmidt MD [address] [place] [address], [facility] DERMATOLOGY [place], [place] [address] 12/14/2024 2:40 PM EST Office Visit Cardiology at [address] [address] Benjie Garrison MD [facility] [place] [place] [address] documented as of this encounter Visit Diagnoses Diagnosis Psoriasis Other psoriasis documented in this encounter Care Teams Electro Mechanical Designer Relationship Specialty Start Date End Date Maciej Szymanski DO [address] [place] [address] PCP - General 09/18/10 09/30/22 documented as of this encounter
--- OUTSIDE RECORDS SUMMARY | 2024-10-08 00:39 | XMS_ITS | Encounter Summary ---
Author Organization [facility] Address [facility] [place] [address] Care Team Providers Care Insulation Blower Name Role Phone Maciej Szymanski DO Primary Care Provider Reason for Visit * Reason Comments Diabetes Encounter Details Date Type Department Care Team (Late st Contact Info) Description 11/21/2014 2:00 PM EST Office [place] [address] [facility] [place] [facility] [place] [address] Type II or unspecified type diabetes mellitus without mention of complication, uncontrolled Discharge Disposition: Home Social History Tobacco Use [...] Sign Reading Time Taken Comments Blood Pressure 136/82 11/21/2014 2:52 PM EST Pulse 95 11/21/2014 2:52 PM EST Temperature - - Respiratory Rate - - Oxygen Saturation - - Inhaled Oxygen Concentration - - Weight 67.9 kg (149 lb 9.6 oz) 11/21/2014 2:52 P M EST Height 172.7 cm (5' 8) 11/21/2014 2:52 PM EST s tated Body Mass Index 22.75 11/21/2014 2:52 PM EST documented in this encounter Patient Instructions * Patient Instructions* Umu New APRN - 11/21/2014 3:13 PM EST Check glucose before evening meal. Take 1 of the 5mg tablet when glucose is under 160. Take 2 of the 5mg tablets when glucose is 161 or higher Get advanced directives from care management office. Then when finished, have them scanned into your medical record Vitamin D 1,000 iu's daily documented in this encounter Progress Notes * Umu New APRN - 11/21/2014 4:32 PM EST DATE OF VISIT: 11/21/2014. REASON FOR VISIT: Followup type 2 DM in fair overall control. BRIEF HISTORY: Presents and states his hemoglobin A1c was as high as 10% since previous office visit, but recently had it checked at PCP office and it was down to 9%. DIABETES REGIMEN: Glipizide 5 mg before evening meal. Glucophage 1000 mg twice a day. Lantus 10 units in a.m., 15 units in p.m. COMPLICATIONS: None. 24-HOUR MEAL PLAN: Breakfast is cereal or two wheat toasts. Morning snack fruit. Lunch varies. 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 Evening meal varies, last night had some corn chowder and mohawk fries. Evening snack varies, he states if he does not have one he will be too hungry. PHYSICAL ACTIVITY: He is lifting weights, he wants to work on building up his muscles. He states that his legs are very stiff until he gets moving, takes two Aleve twice a day. PREVENTION STRATEGIES: He did have a flu vaccine, does go to the dentist, does have an annual dilated eye exam. Has had cataracts removed both right and left. REVIEW OF SYSTEMS: Depression and Mood: Overall is doing well. Eyes: No recent vision changes. No recent headaches or chest pain or shortness of breath. GI Symptoms: Takes Prilosec for management of GERD. Sleep pattern is usually okay. Extremities: Has leg stiffness and joint pain. PAST SURGICAL HISTORY: Had surgery for scoliosis correction at age 15. Has psoriasis. SBGM: Two times a day. PHYSICAL EXAM: Appearance: He appears in excellent health. Spine changes consistent with history of surgery for scoliosis. Blood pressure 136/82. Weight 149 pounds. He has lost 7 pounds since previous office visit. Eyes: No retinopathy with green light exam. Neck: No thyromegaly or lymphadenopathy. Heart: Regular rate and rhythm. No murmurs. Lungs: Clear to auscultation. Feet: Skin is normal. Pulses are normal. Neuro: Normal sensation to 10 g of pressure. LABS: Hemoglobin A1c 8.0%, previous was 8.2%. Highest glucose levels are usually in the evening. Will have patient check glucose levels before evening meal, continue to take one of the glipizide 5 mg tablet when glucose levels are 160 or less and take two of them when they are 161 or higher before the meal. Some glucose levels after the meal are as high as 300. Return to office in April, will check hemoglobin A1c. This was a 34-minute office visit with 33 minutes spent counseling [id number] with patient in the management of glucose levels, increasing glipizide to two of the 5 mg tablets when glucose levels before the meal are 161 or higher, reviewed prevention and treatment of hypoglycemia. He occasionally has some low glucose levels below 80 fasting and a.m., may need to consider lowering p.m. dose of Lantus to 13 units. Recent Results (from the past 72 hour(s)) HEMOGLOBIN A1C Result Value Ref Range Hemoglobin A1C 8.0 (*) <=5.6 % Est Avg Gluc 183 CREATININE Result Value Ref Range Creatinine 1.12 0.80 - 1.50 mg/dL Estimated GFR >60 >=60 documented in this encounter Plan of Treatment Upcoming Encounters Date Type Department Care Team (Late st Contact Info) Description 11/08/2024 3:30 PM EST Office Visit Dermatology at [address] [place] [address] Prosper Schmidt MD [address], [place] [address] 12/14/2024 2:40 PM EST Office Visit Cardiology at [place] [address] [facility] [place] [phone] Benjie Garrison MD [facility] [place] [address] documented as of this encounter Procedures Procedure Name Priority Date/Time Associated Diagnosis Comments CREATININE Routine 11/21/2014 2:39 PM EST Type II or unspecified type diabetes mellitus without mention of complication, uncontrolled HEMOGLOBIN A1C Routine 11/21/2014 2:39 PM EST Type II or unspecified type diabetes mellitus without mention of complication, uncontrolled documented in this encounter Results * (ABNORMAL) Hemoglobin A1c (05/22/2015 10:16 AM EDT) [facility] Hemoglobin A1c 8.5(H) 4.3 - 5.6 % [facility] Comment: Reference Range: 4.3 - 5.6% 5.7 [...] Mellitus, Diabetes Care 2013; 36: Suppl. 1, T67-02 Estimated Average Glucose 197 mg/dL [facility] Comment: eAG equivalents for HbA1c percentages: HbA1c(%) ?eAG(mg/dL) 6.0 ?126 6.5 ?140 7.0 ?154 7.5 ?169 8.0 ?183 8.5 ?197 9.0 ?212 9.5 ?226 10.0 ? 240 Limitations: The eAG calculation has not been validated on women, individuals below 18 years old and above 70 years old, and individuals with hemoglobinopathies. Additional resources are available on the ADA website: http://Matches [email or web address]/MCadacalc Jon MURPHY, Carol J, Tino R, et al. ??Translating the A1C assay into estimated average glucose values. ??Diabetes Care 2008:31(8):8218-8487. Blood specimen (specimen) 05/22/2015 10:16 AM EDT 05/22/2015 10:23 AM EDT Narrative Resulting Agency Comment Spec In Lab Bernardo Britton MD CHEMISTRY ORDERABLES [facility] * Creatinine (11/21/2014 2:39 PM EST) [facility] Signature Creatinine 1.12 0.80 - 1.50 mg/dL [facility] Comment: Please note that the pediatric reference intervals supplied above were not validated at [facility]. Results from pediatric patients should be interpreted in conjunction to the patient's age, height and muscle mass. Est Glomerular Filtration Rate >60 >=60 [facility] Comment: This estimated GFR (eGFR) value was [...] the following links into your internet browser. [email or web address] Blood specimen (specimen) 11/21/2014 2:39 PM EST 11/21/2014 2:51 PM EST Narrative Resulting Agency Comment Spec In Lab Bernardo Britton MD CHEMISTRY ORDERABLES [facility] * (ABNORMAL) Hemoglobin A1c (11/21/2014 2:39 PM EST) Hemoglobin A1c 8.0(H) <=5.6 % [facility]FF [facility] Comment: Reference Range: 4.3 - 5.6% 5.7 [...] Mellitus, Diabetes Care 2013; 36: Suppl. 1, S67-96 Estimated Average Glucose 183 mg/dL [facility] [place] Comment: eAG equivalents for HbA1c percentages: HbA1c(%) ?eAG(mg/dL) 6.0 ?126 6.5 ?140 7.0 ?154 7.5 ?169 8.0 ?183 8.5 ?197 9.0 ?212 9.5 ?226 10.0 ? 240 Limitations: The eAG calculation has not been validated on women, individuals below 18 years old and above 70 years old, and individuals with hemoglobinopathies. Additional resources are available on the ADA website: http://Matches Fashion.com/DHMCadacalc Jon MURPHY, Carol Pandey, Tino Pope, et al. ??Translating the A1C assay into estimated average glucose values. ??Diabetes Care 2008:31(8):9213-4087. Blood specimen (specimen) 11/21/2014 2:39 PM EST 11/21/2014 2:50 PM EST Narrative Resulting Agency Comment Spec In Lab Bernardo Britton MD CHEMISTRY ORDERABLES Performing Organization Address City/State/[facility] Phone Number [facility] documented in this encounter Visit Diagnoses Diagnosis Type II or unspecified type diabetes mellitus without mention of complication, uncontrolled documented in this encounter Care Teams Insulation Blower Relationship Specialty Start Date End Date Maciej Szymanski DO [address] [place] [address] [address] [place] [address] PCP - General 09/18/10 09/30/22 documented as of this encounter
--- OUTSIDE RECORDS SUMMARY | 2024-10-08 00:39 | XMS_ITS | Encounter Summary ---
Author Organization [facility] [place] [address] Care Team Providers Care Nitroglycerin Supervisor Name Role Phone Maciej Szymanski DO Primary Care Provider Reason for Visit * Reason Comments Follow-up Encounter Details Date Type Department Care Team (Late st Contact Info) Description 03/10/2015 4:45 PM EDT Office Visit Dermatology at [address] [place] [address] Prosper Schmidt MD [address] [place] [address], [place] [address] Psoriasis Discharge Disposition: Home Social History Tobacco [...] * Patient Instructions* Christina Wolfe LPN - 03/10/2015 4:49 PM EDT Images from the original note were not included. [facility] Psoriasis: After Your Visit Your Care Instructions Psoriasis (say fje-HO-nb-noble) is a long-term skin problem that causes [...] still damp. This seals in moisture. Use uxte-ara-triqtct products that your doctor suggests. These may [...] more? Visit our health information library at [email or web address] & [email or web address] You can also view health information on Mintigo, your personal patient account. Log in or sign up today. Enter U759 in the search box to learn more about Psoriasis: After Your Visit. ?? [id number] [employer]. Care instructions adapted under license by [facility]. This care instruction is for use with your licensed healthcare professional. If you have questions about a medical condition or this instruction, always ask your healthcare professional. [employer], Whe[employer] disclaims any warranty or liability for your use of this information. Content Version: 10.4.840684; Current as of: January 05, 2014 documented in this encounter Progress Notes * Prosper Schmidt MD - 03/10/2015 5:04 PM EDT Problem List: 1. Three month skin check. 2. Followup of psoriasis. 3. History of psoriatic arthritis, controlled with Aleve and methotrexate. Ervin follows up and has been doing well. The clobetasol scalp solution, which we gave him in May of 2014, really is helping his scalp, and otherwise his psoriasis is pretty much controlled with the current dosing of 15 mg of methotrexate a week. Physical examination confirms that the scalp is actually looking quite good. Minimal patchy micaceous scaling present. There are a couple of erythematous patches on the abdomen, but otherwise he is clear. Assessment and Plan: 1. Psoriasis, well controlled with methotrexate 15 mg p.o. q. week. a. Continue methotrexate at current dosing, 15 mg p.o. q. week, #90 dispensed for a 3 month supply with zero refills, take six of the 2.5 mg tablets each week. b. Continue to take folate 1 mg p.o. q. day, except for the day of the methotrexate dosing. He was given a one year supply, #90 with three refills, in October 2014. c. Continue tar and T/Bacilio shampoos for scalp. d. May use triamcinolone cream b.i.d. p.r.n. for mild flares in the groin. e. As aforementioned, clobetasol scalp solution was given to him in May. We will need to renew it for another year's supply when I see him again this May. As methotrexate labs from December were within normal limits, repeat again two months from now. Return to clinic in three months for repeat check. COPY: Maciej Szymanski D.O. documented in this encounter Plan of Treatment Upcoming Encounters Date Type Department Care Team (Late st Contact Info) Description 11/08/2024 3:30 PM EST Office Visit Dermatology at [place] [address] [facility] [place] [address] Prosper Schmidt MD [address] [facility], [place] [address] 12/14/2024 2:40 PM EST Office Visit Cardiology at [address] [place] [address] Benjie Garrison MD [facility] [place] [address] documented as of this encounter Visit Diagnoses Diagnosis Psoriasis Other psoriasis documented in this encounter Care Teams Nitroglycerin Supervisor Relationship Specialty Start Date End Date Maciej Szymanski DO [address] [facility] 1 [place] [address] PCP - General 09/18/10 09/30/22 documented as of this encounter
--- OUTSIDE RECORDS SUMMARY | 2024-10-08 00:39 | XMS_ITS | Encounter Summary ---
Author Organization [facility] [place] [address] Care Team Providers Care Holistic Pulser Name Role Phone Maciej Szymanski DO Primary Care Provider Reason for Visit * Reason Comments Follow-up Encounter Details Date Type Department Care Team (Late st Contact Info) Description 07/14/2015 4:00 PM EDT Office Visit Dermatology at [address] [place] [address] Prosper Schmidt MD [address] [place] [address], [place] [address] Psoriasis; Epidermal cyst Discharge Disposition: Home Social History Tobacco Use [...] * Patient Instructions* Christina Wolfe LPN - 07/14/2015 4:43 PM EDT Images from the original note were not included. [facility] Psoriasis: After Your Visit Your Care Instructions Psoriasis (say xjq-ZD-im-noble) is a long-term skin problem that causes [...] still damp. This seals in moisture. Use fjxm-zru-wxxgxyt products that your doctor suggests. These may [...] more? Visit our health information library at [email or web address] You can also view health information on Wellbeats, your personal patient account. Log in or sign up today. Enter U759 in the search box to learn more about Psoriasis: After Your Visit. ?? [phone] Qinqin.[employer], Incorporated. Care instructions adapted under license by [facility]. This care instruction is for use with your licensed healthcare professional. If you have questions about a medical condition or this instruction, always ask your healthcare professional. Qinqin.[employer], Ha[employer] disclaims any warranty or liability for your use of this information. Content Version: 10.4.136288; Current as of: January 05, 2014 documented in this encounter Progress Notes * Prosper Schmidt MD - 07/14/2015 4:55 PM EDT Problem: Followup psoriasis. Ervin follows up and he has been doing well. However, his CBC has dropped down to an H and H of 11 and 13.7. Back two years ago his hematocrit was 42.3. He has been scheduled to see Dr. Steele for endoscopy and colonoscopy. I also did bring up with Ervin today the fact that his methotrexate may be to blame for this and we should stop it. Physical examination reveals that his skin is entirely clear. He has a few patches of dry scaling in his scalp. He also has a follicular cyst right upper back. He is well but states that he does feel easily tired. Assessment and Plan: 1. Psoriasis well-controlled with methotrexate but with decreasing hematocrit and hemoglobin. a. Patient states that guaiac cards were recently negative. b. Keep appointment next Friday with Dr. Steele. c. Discontinue methotrexate. d. Will just use topicals for now for his psoriasis then return to clinic in a month for repeat check. e. Reassured patient that we will find the cause of his blood loss and correct it. Discontinuing the methotrexate if that is the culprit will allow normalization of his hematocrit and hemoglobin. 2. Follicular cyst right upper back. a. Will schedule a 45 minute appointment for excision for this in the near future. b. Discussed with patient, answered questions. cc: Maciej Szymanski D.O. Dr. Steele documented in this encounter Plan of Treatment Upcoming Encounters Date Type Department Care Team (Late st Contact Info) Description 11/08/2024 3:30 PM EST Office Visit Dermatology at [place] [address] [facility] [place] [address] Prosper Schmidt MD [address] [facility] [address] [address], [place] [address] 12/14/2024 2:40 PM EST Office Visit Cardiology at [place] [address] [facility] [place] [phone] Benjie Garrison MD [facility] [place] [address] documented as of this encounter Visit Diagnoses Diagnosis Psoriasis Other psoriasis Epidermal cyst Sebaceous cyst documented in this encounter Care Teams Holistic Pulser Relationship Specialty Start Date End Date Maciej Szymanski DO [address] [place] [address] [address] [facility] 1 [place] [address] PCP - General 09/18/10 09/30/22 documented as of this encounter
--- OUTSIDE RECORDS SUMMARY | 2024-10-08 00:39 | XMS_ITS | Encounter Summary ---
Author Organization [facility] Address [facility] [place] [address] Care Team Providers Care Design Agent Name Role Phone Maciej Szymanski DO Primary Care Provider Reason for Visit * Reason Comments IV Medication Venofer Encounter Details Date Type Department Care Team (Late st Contact Info) Description 12/22/2015 10:30 AM EST Infusion Hematology Oncology at [address] [phone] Iron deficiency anemia, unspecified iron deficiency anemia [...] Sign Reading Time Taken Comments Blood Pressure 113/74 12/22/2015 10:37 AM EST Pulse 100 12/22/2015 10:37 AM EST Temperature 36.7 ??C (98.1 ??F) 12/22/2015 10:[address] Respiratory Rate 20 12/22/2015 10:37 AM EST Oxygen Saturation 100% 12/22/2015 10:37 AM EST Inhaled Oxygen Concentration - - Weight 65.1 kg (143 lb 8 oz) 12/22/2015 10:37 AM EST Height - - Body Mass Index 21.82 12/11/2015 10:24 AM EST documented in this encounter Progress Notes * Karen Truong RN - 12/22/2015 10:56 AM EST INFUSION THERAPY ADMINISTRATION NOTES DIAGNOSIS: Iron Deficiency REASON FOR VISIT: Venofer infusion, 2nd of 3 infusions SUBJECTIVE Ervin offers no complaints. OBJECTIVE LAB DATA: N/A Pre administration: Chemotherapy orders independently verified for drug name, route, and dosage per patient's height, weight and BSA by Karen Truong RN and Vivian Mims [facility]. REACTIONS (DESCRIPTION, TIME, INTERVENTION AND EFFECTIVENESS) none ASSESSMENT Ervin was awake, alert and tolerated treatment well. Patient remained in clinic with IV access for 30 minutes after infusion. PLAN Return to clinic next week for final infusion. documented in this encounter Plan of Treatment Upcoming Encounters Date Type Department Care Team (Late st Contact Info) Description 11/08/2024 3:30 PM EST Office Visit Dermatology at [address] [phone] Prosper Schmidt MD [address] [place] [address], [facility] [address] 12/14/2024 2:40 PM EST Office Visit Cardiology at [address] [phone] Benjie Garrison MD [facility] [place]IOLOG[place] [address] documented as of this encounter Visit Diagnoses Diagnosis Iron deficiency anemia, unspecified iron deficiency anemia type documented in this encounter Administered Medications Inactive Administered Medications - up to 3 most recent administrations Medication Order MAR Action Action Date Dose Rate Site iron sucrose (VENOFER) 300 mg in sodium chloride 0.9% 265 mL 300 mg, Intravenous, ONCE, 1 dose, On Fri12/22/15 at 1030, Administer over 120 Minutes, Patients should be closely monitored for signs of hypersensitivity during and for at least 30 min after each administration. Dose 2 of 3. Given 12/22/2015 10:30 AM EST 300 mg 132.5 mL/hr documented in this encounter Care Teams Design Agent Relationship Specialty Start Date End Date Maciej Szymanski DO [address] [place] [address] PCP - General 09/18/10 09/30/22 documented as of this encounter
--- OUTSIDE RECORDS SUMMARY | 2024-10-08 00:39 | XMS_ITS | Encounter Summary ---
[place] [address] Care Team Providers Care Data Typist Name Role Phone Stephon, Maciej ORTIZ Primary Care Provider Encounter Details Date Type Department Care Team (Latest Contact Info) Description 12/25/2016 2:55 PM EST Laboratory Appointment Lab [address]L [place] [phone] Diabetes mellitus type 2, uncomplicated Social History Tobacco Use Types Packs/Day Years [...] PM EST Office Visit Dermatology at [address] [place] [address] Prosper Schmidt MD [address] [facility], [place] [address] 12/14/2024 2:40 PM EST Office Visit Cardiology at [address] [place] [address] Benjie Garrison MD [facility] [place] [address] documented as of this encounter Procedures Procedure Name Priority Date/Time Associated Diagnosis Comments HEMOGLOBIN A1C Routine 12/25/2016 2:56 PM EST Diabetes mellitus type 2, uncomplicated LIPID PANEL (REFLEX DIRECT LDL) Routine 12/25/2016 2:56 PM EST Diabetes mellitus type 2, uncomplicated documented in this encounter Results * Lipid panel (fasting) (12/25/2016 2:56 PM EST) Cholesterol, Total 160 <=239 mg/dL [facility] Triglyceride 108 <=199 mg/dL [facility] HDL Cholesterol 52 >=40 mg/dL [facility] LDL Cholesterol 86 <=190 mg/dL [facility] Cholesterol/HDL Ratio 3.1 ratio [facility] Lipid Interpretation See Note [facility] Comment: Lipid management should be guided by a patient? s ASCVD risk, goals and preferences. ACC/AHA Guidelines recommend high intensity statin if clinical ASCVD or LDL greater than or equal to 190 mg/dL. http://circ.ahajournals.org/content/early/.cir.6289319766.16044.7a Adults aged 40-75 with LDL 70-189 mg/dL should have their 10 year ASCVD risk estimated with the ACC/AHA ASCVD risk yardage estimator http://tools.acc.org/GYMVS-Jfhe-Oytazlwem/ Statin should be discussed if risk greater [...] of ASCVD risk reduction. Blood specimen (specimen) 12/25/2016 2:56 PM EST 12/25/2016 3:03 PM EST Narrative Resulting Agency Comment Spec In Lab Bernardo Britton MD CHEMISTRY ORDERABLES [facility] [place] [address] * (ABNORMAL) Hemoglobin A1c (12/25/2016 2:56 PM EST) Hemoglobin A1c 7.5(H) 4.3 - 5.6 % [facility] Comment: Reference Range: 4.3 - [...] Mellitus, Diabetes Care 2013; 36: Suppl. 1, S67-15 Estimated Average Glucose 169 mg/dL [facility] Comment: eAG equivalents for HbA1c percentages: HbA1c(%) ?eAG(mg/dL) 6.0 ?126 6.5 ?140 7.0 ?154 7.5 ?169 8.0 ?183 8.5 ?197 9.0 ?212 9.5 ?226 10.0 ? 240 Limitations: The eAG calculation has not been validated on women, individuals below 18 years old and above 70 years old, and individuals with hemoglobinopathies. Additional resources are available on the ADA website: http://uTest.com/DHMCadacalc Jon MURPHY, Carol J, Tino R, et al. ??Translating the A1C assay into estimated average glucose values. ??Diabetes Care 2008:31(8):6862-6848. Blood specimen (specimen) 12/25/2016 2:56 PM EST 12/25/2016 3:03 PM EST Narrative Resulting Agency Comment Spec In Lab Bernardo Britton MD CHEMISTRY ORDERABLES [facility] [place] [address] documented in this encounter Visit Diagnoses Diagnosis Diabetes mellitus type 2, uncomplicated Type II or unspecified type diabetes mellitus without mention of complication, not stated as uncontrolled documented in this encounter Care Teams Data Typist Relationship Specialty Start Date End Date Maciej Szymanski DO [address] [place] [address] PCP - General 09/18/10 09/30/22 documented as of this encounter
--- OUTSIDE RECORDS SUMMARY | 2024-10-08 00:39 | XMS_ITS | Encounter Summary ---
Author Organization [facility] Address [facility] [place] [address] Care Team Providers Care Coat Ironer Hand Name Role Phone Maciej Szymanski DO Primary Care Provider [phone] Reason for Visit * Reason Comments IV Medication iron infusion Encounter Details Date Type Department Care Team (Late st Contact Info) Description 12/11/2015 9:30 AM EST Infusion Hematology Oncology at [address] [phone] Iron deficiency anemia, unspecified iron deficiency anemia [...] Sign Reading Time Taken Comments Blood Pressure 117/75 12/11/2015 1:29 PM EST Pulse 77 12/11/2015 1:29 PM EST Temperature 36.6 ??C (97.9 ??F) 12/11/2015 1:29 PM ES T Respiratory Rate 18 12/11/2015 1:29 PM EST Oxygen Saturation 100% 12/11/2015 1:29 PM EST Inhaled Oxygen Concentration - - Weight 65.1 kg (143 lb 8 oz) 12/11/2015 10:24 AM EST Height 172.7 cm (5' 7.99) 12/11/2015 10:[address] Body Mass Index 21.82 12/11/2015 10:24 AM EST documented in this encounter Progress Notes * Deny Bolivar RN - 12/11/2015 12:20 PM EST INFUSION THERAPY ADMINISTRATION NOTES DIAGNOSIS: Iron deficiency Anemia REASON FOR VISIT: Venofer Infusion SUBJECTIVE Ervin offers no complaints; denied pain OBJECTIVE LAB DATA: as of 12/04/15: HGB 11.8; HCT 37.1; Plt 9.2; Ferritin >20.0; VSS REACTIONS (DESCRIPTION, TIME, INTERVENTION AND EFFECTIVENESS)none ASSESSMENT Ervin was awake, alert and she tolerated treatment well. Kept for 30 mins post infusion for reactionwatch ( negative) PLAN Return to clinic per routine. documented in this encounter Plan of Treatment Upcoming Encounters Date Type Department Care Team (Late st Contact Info) Description 11/08/2024 3:30 PM EST Office Visit Dermatology at [address] [phone] Prosper Schmidt MD [address] [place] [address], [facility] [place] [address] 12/14/2024 2:40 PM EST Office Visit Cardiology at [address] [phone] Benjie Garrison MD [facility] [place] [address] documented as of this encounter Procedures Procedure Name Priority Date/Time Associated Diagnosis Comments CHEMOTHERAPY SCAN 12/11/2015 12:00 AM EST documented in this encounter Results * SCAN DOC: CHEMOTHERAPY (12/11/2015 12:00 AM EST) Scanning Provider MEDIA MGR SCAN EXT O RDR/RSLT documented in this encounter Visit Diagnoses Diagnosis Iron deficiency anemia, unspecified iron deficiency anemia type documented in this encounter Administered Medications Inactive Administered Medications - up to 3 most recent administrations Medication Order MAR Action Action Date Dose Rate Site iron sucrose (VENOFER) 300 mg in sodium chloride 0.9% 265 mL 300 mg, Intravenous, ONCE, 1 dose, On Fri12/11/15 at 1100, Administer over 120 Minutes, Patients should be closely monitored for signs of hypersensitivity during and for at least 30 min after each administration. Dose 1 of 3. Given 12/11/2015 11:05 AM EST 300 mg 132.5 mL/hr Right Arm documented in this encounter Care Teams Coat Ironer Hand Relationship Specialty Start Date End Date Maciej Szymanski DO [address] [place] [address] PCP - General 09/18/10 09/30/22 documented as of this encounter
--- OUTSIDE RECORDS SUMMARY | 2024-10-08 00:39 | XMS_ITS | Encounter Summary ---
Author Organization [facility] Address [facility] [address] Care Team Providers Care Merchandise Clerk Name Role Phone Stephon Maciej ORTIZ Primary Care Provider Encounter Details Date Type Department Care Team ([facility] Contact Info) Description 07/05/2016 Telephone Dermatology at [address] [place] [address] Daisy Keita LPN Social History Tobacco [...] Miscellaneous Notes * Telephone Encounter - Daisy Limon LPN - 07/05/2016 8:43 AM EDT Nurse called patient to advise he could continue taking the Methotrexate. Labs are WNL. Message left. Encouraged patient to call Dr. Schmidt at [phone] if he had any concerns. documented in this encounter Plan of Treatment Upcoming Encounters Date Type Department Care Team ([facility] Contact Info) Description 11/08/2024 3:30 PM EST Office Visit Dermatology at [place] [address] [place] [address] Prosper Schmidt MD [address] [facility], [place] DERMATOLOGY [place], [place] [phone] 12/14/2024 2:40 PM EST Office Visit Cardiology at [address] [place] [address] Benjie Garrison MD [facility] [place] [address] documented as of this encounter Visit Diagnoses Not on filedocumented in this encounter Care Teams Merchandise Clerk Relationship Specialty Start Date End Date Maciej Szymanski DO [address] [facility] 1 [place] [address] PCP - General 09/18/10 09/30/22 documented as of this encounter
--- OUTSIDE RECORDS SUMMARY | 2024-10-08 00:39 | XMS_ITS | Encounter Summary ---
Author Organization [facility] [place] [address] Care Team Providers Care Director Of Broadcast Name Role Phone StephonMaciej hunter Primary Care Provider Encounter Details Date Type Department Care Team (Late st Contact Info) Description 03/29/2016 Telephone Dermatology at [address] [phone] Prosper Schmidt MD [address] [place] [address], [facility] [place] [address] Social History Tobacco Use Types Packs/Day Years [...] PM EST Office Visit Dermatology at [address] [phone] Prosper Schmidt MD [address] [place] [address], [facility] [place] [address] 12/14/2024 2:40 PM EST Office Visit Cardiology at [address] [place] [address] Benjie Garrison MD [facility] [address] documented as of this encounter Visit Diagnoses Diagnosis Psoriasis Other psoriasis documented in this encounter Care Teams Director Of Broadcast Relationship Specialty Start Date End Date Maciej Szymanski DO [address] [place] [address] [address] [place] [address] PCP - General 09/18/10 09/30/22 documented as of this encounter
--- OUTSIDE RECORDS SUMMARY | 2024-10-08 00:39 | XMS_ITS | Encounter Summary ---
Author Organization [facility] Address [facility] [place] [address] Care Team Providers Care Airport Operations Coordinator Name Role Phone Maciej Szymanski DO Primary Care Provider Reason for Visit * Reason Comments Diabetes Encounter Details Date Type Department Care Team (Late st Contact Info) Description 05/22/2015 10:00 AM EDT Office [place] [address] [facility] [place] [address] Type II or unspecified type diabetes mellitus [...] Sign Reading Time Taken Comments Blood Pressure 123/81 05/22/2015 10:52 AM EDT Pulse 88 05/22/2015 10:52 AM EDT Temperature - - Respiratory Rate - - Oxygen Saturation - - Inhaled Oxygen Concentration - - Weight 67.9 kg (149 lb 9.6 oz) 05/22/2015 10:52 AM EDT Height 172.7 cm (5' 8) 05/22/2015 10:52 AM EDT Body Mass Index 22.75 05/22/2015 10:52 AM EDT documented in this encounter Patient Instructions * Patient Instructions* [facility] New APRN - 05/22/2015 11:15 AM EDT Lower PM lantus dose to 11 units. If AM glucose is under 80, then lower to 10 units Will mail prescription for therapeutic shoes and inserts Will add glipizide before breakfast and evening meals if glucose levels are above 140 documented in this encounter Progress Notes * [facility]mu New APRN - 05/22/2015 6:09 PM EDT DATE OF VISIT: 05/22/2015 REASON FOR VISIT: Followup type 2 DM in poor control. BRIEF HISTORY: Presents and states glucose levels are usually about the same. DATE OF DIAGNOSIS OF DIABETES: 2008. SBGM two times a day. DIABETES REGIMEN: Glipizide 5 mg one to two tablets before evening meal, metformin a 1000 mg twice a day, Lantus 11 units daily. 24-HOUR MEAL PLAN: Breakfast is cereal. Lunch varies quite a bit, could be at the community lunch or a bagged lunch. Evening meal, last evening was leftovers and then had cookies and rice crispy square and fresh fruit. PHYSICAL ACTIVITY: Walking. PAST SURGICAL HISTORY: Scoliosis correction. REVIEW OF SYSTEMS: Depression and Mood: Overall is doing okay. Eyes: Has had cataracts removed. No recent headaches or chest pain or shortness of breath. No recent GI symptoms. Appetite is good. Sleep pattern is good. Skin: Has a superficial open area on left foot. Extremities are good. PHYSICAL EXAMINATION: Appearance: He appears in good health. Scoliosis is evident. Pleasant and talkative with good eye contact. Eyes: No retinopathy with green light exam. Neck: No thyromegaly or lymphadenopathy. Heart: Regular rate and rhythm. No murmurs. Lungs are clear to auscultation. Feet: Skin is normal on right. Pulses are normal. Neuro: Normal sensation to 10 g of pressure. Left foot dorsal aspect has a superficial open area that he scraped few days ago. Has low arches. Needs the therapeutic inserts and therapeutic shoes related to the skin changes on left dorsal aspect and challenges of living with the scoliosis. Also, states he has had some ankle problems in the past as well. Blood pressure is at goal 123/81, weight 149 pounds. Will mail patient prescription for therapeutic shoes and inserts. Reviewed good foot care and report if open area on left foot has redness or discharge or odor. Return to office in October. Will check hemoglobin A1c, reviewed blood glucose results from [facility]. Advised to lower Lantus dose by 1 to 2 units if fasting glucose levels are under 90. We will need to increase glipizide glucose to twice daily when glucose levels are over 140 before breakfast and before evening meal. Reviewed prevention and treatment of hypoglycemia. This was a 35-minute office visit with 34 minutes spent counseling [id number] with the patient in the management of glucose levels, reviewing a healthy meal plan with a higher intake of vegetables and fruits and reviewing target glucose levels to get hemoglobin A1c closer to 7.5%. Recent Results (from the past 72 hour(s)) Hemoglobin A1c Result Value Ref Range Hemoglobin A1C 8.5 (H) 4.3 - 5.6 % Est Avg Gluc 197 mg/dL documented in this encounter Plan of Treatment Upcoming Encounters Date Type Department Care Team (Late st Contact Info) Description 11/08/2024 3:30 PM EST Office Visit Dermatology at [address] [place] [address] Prosper Schmidt MD [address] [place] [address], [facility] [place] [address] 12/14/2024 2:40 PM EST Office Visit Cardiology at [address] [phone] Benjie Garrison MD [facility] [place] [address] documented as of this encounter Procedures Procedure Name Priority Date/Time Associated Diagnosis Comments HEMOGLOBIN A1C Routine 05/22/2015 10:16 AM EDT Type II or unspecified type diabetes mellitus without mention of complication, uncontrolled documented in this encounter Results * LDL Cholesterol, Direct (11/20/2015 2:57 PM EST) LDL Cholesterol, Direct 88 <=99 mg/dL [facility] Comment: The National Cholesterol Education Program (NCEP) has set the following guidelines for LDL Cholesterol: Reference range: ?? Optimal: ?<100 mg/dL ?? Near Optimal/Above Optimal: ?? 100-129 mg/dL ?? Borderline high: ?130-159 mg/dL ?? High: ? 160-189 mg/dL ?? Very high: ?>pn=635 mg/dL HERMINIO 2001: 285(19):5801-2033 Blood specimen (specimen) 11/20/2015 2:57 PM EST 11/20/2015 3:07 PM EST Narrative Resulting Agency Comment Spec In Lab Bernardo Britton MD CHEMISTRY ORDERABLES [facility] * HDL/Cholesterol Profile (11/20/2015 2:57 PM EST) Cholesterol, Total 139 <=199 mg/dL [facility] Comment: Recommendations of the NCEP Adult Treatment Panel for the following risk cutoff thresholds for the [place] population: Desirable: <200 mg/dL Borderline High: 200-239 mg/dL High: > or = 240 mg/dL HDL Cholesterol 45 >=40 mg/dL [facility] Comment: Reference range: ??Low HDL: ?? < 40 mg/dL ??Normal: ?40-60 mg/dL ??Desirable: > 60 mg/dL HERMINIO 2001; 285(19):7826-7779 Cholesterol/HDL Ratio 3.1 ratio [facility] Comment: A Cholesterol to HDL ratio below 4:1 is desirable. ??Studies suggest that increased CAD risk occurs at ratios above 5 for females and above 6 for men. ? [place] Heart Association ??(http://www.americanheart.org) ? Tanja Int Med, 1994; 121:641 ? AM J Med, 1998; 105(1A):48S Blood specimen (specimen) 11/20/2015 2:57 PM EST 11/20/2015 3:07 PM EST Narrative Resulting Agency Comment Spec In Lab Bernardo Britton MD CHEMISTRY ORDERABLES [facility] * (ABNORMAL) Hemoglobin A1c (11/20/2015 2:57 PM EST) Hemoglobin A1c 8.0(H) 4.3 - 5.6 % [facility] Comment: Reference Range: 4.3 - 5.6% 5.7 [...] Mellitus, Diabetes Care 2013; 36: Suppl. 1, C43-25 Estimated Average Glucose 183 mg/dL [facility] Comment: eAG equivalents for HbA1c percentages: HbA1c(%) ?eAG(mg/dL) 6.0 ?126 6.5 ?140 7.0 ?154 7.5 ?169 8.0 ?183 8.5 ?197 9.0 ?212 9.5 ?226 10.0 ? 240 Limitations: The eAG calculation has not been validated on women, individuals below 18 years old and above 70 years old, and individuals with hemoglobinopathies. Additional resources are available on the ADA website: http://Clan Fight.Tissue Genesis/DHMCadacalc Jon MURPHY, Carol Pandey, Tino R, et al. ??Translating the A1C assay into estimated average glucose values. ??Diabetes Care 2008:31(8):4699-6154. Blood specimen (specimen) 11/20/2015 2:57 PM EST 11/20/2015 3:08 PM EST Narrative Resulting Agency Comment Spec In Lab Bernardo Britton MD CHEMISTRY ORDERABLES [facility] * (ABNORMAL) Hemoglobin A1c (05/22/2015 10:16 AM EDT) Hemoglobin A1c 8.5(H) 4.3 - 5.6 % [facility] Comment: Reference Range: 4.3 - 5.6% 5.7 [...] 36: Suppl. 1, S67-74 Estimated Average Glucose 197 mg/dL [facility] Comment: eAG equivalents for HbA1c percentages: HbA1c(%) ?eAG(mg/dL) 6.0 ?126 6.5 ?140 7.0 ?154 7.5 ?169 8.0 ?183 8.5 ?197 9.0 ?212 9.5 ?226 10.0 ? 240 Limitations: The eAG calculation has not been validated on women, individuals below 18 years old and above 70 years old, and individuals with hemoglobinopathies. Additional resources are available on the ADA website: http://Clan Fight.Tissue Genesis/DHMCadacalc Jon MURPHY, Carol J, Tino R, et al. ??Translating the A1C assay into estimated average glucose values. ??Diabetes Care 2008:31(8):8067-4214. Blood specimen (specimen) 05/22/2015 10:16 AM EDT 05/22/2015 10:23 AM EDT Narrative Resulting Agency Comment Spec In Lab Bernardo Britton MD CHEMISTRY ORDERABLES [facility] documented in this encounter Visit Diagnoses Diagnosis Type II or unspecified type diabetes mellitus without mention of complication, uncontrolled documented in this encounter Care Teams Airport Operations Coordinator Relationship Specialty Start Date End Date Maciej Szymanski DO [address] [place] [address] PCP - General 09/18/10 09/30/22 documented as of this encounter
--- OUTSIDE RECORDS SUMMARY | 2024-10-08 00:39 | XMS_ITS | Encounter Summary ---
Author Organization [facility] [place] [address] Care Team Providers Care Junior Software Engineer Name Role Phone Maciej Szymanski DO Primary Care Provider Reason for Visit * Reason Comments Psoriasis Encounter Details Date Type Department Care Team (Late st Contact Info) Description 09/19/2015 4:30 PM EST Office Visit Dermatology at [address] [place] [phone] Prosper Schmidt MD [address] [place] [address], [place] [address] Psoriasis Social History Tobacco Use Types Packs/Day [...] * Patient Instructions* Christina Wolfe LPN - 09/19/2015 4:44 PM EST Images from the original note were not included. [facility] Psoriasis: After Your Visit Your Care Instructions Psoriasis (say ila-MR-si-noble) is a long-term skin problem that causes [...] still damp. This seals in moisture. Use tapc-gez-chptyuz products that your doctor suggests. These may [...] more? Visit our health information library at http://Network for Good/[employer] Electronicso You can also view health information on [employer], your personal patient account. Log in or sign up today. Enter U759 in the search box to learn more about Psoriasis: After Your Visit. ?? [id number] [employer]. Care instructions adapted under license by [facility]. This care instruction is for use with your licensed healthcare professional. If you have questions about a medical condition or this instruction, always ask your healthcare professional. Anay We disclaims any warranty or liability for your use of this information. Content Version: 10.4.475753; Current as of: January 05, 2014 documented in this encounter Progress Notes * Prosper Schmidt MD - 09/19/2015 4:56 PM EST Problem: Followup psoriasis, flaring off methotrexate, anemia workup in progress. Ervin follows up and states that he has had endoscopy and colonoscopy. The patient reports that there is a question of Huang's esophagitis as the source for his anemia. He dropped off stool guaiac in Friday but has not heard back, nor have we heard back, on whether it was guaiac-positive or not. He has been seeing Dr. Machado, as Dr. Szymanski is out of the office currently. Physical examination today reveals small papules and small patches of psoriasis over his abdomen, a few on his arms. They are slightly itchy. Assessment and Plan: Psoriasis, moderate flaring off of methotrexate. a. We will speak with Dr. Machado tomorrow. b. Patient's most recent CBC was obtained and dates back to August 25 when his hemoglobin was 10.7 and his hematocrit was 33.1. On June 20, his H and H were 11.0 and 33.7. Thus, there has been really no significant improvement in the last two months. c. I remain reluctant to give him any systemic therapy until we find the trigger for his anemia. d. The patient is not a good candidate for phototherapy. e. The patient is not a good candidate for cyclosporin therapy due to his diabetes. COPY: Maciej Szymanski D.O. documented in this encounter Plan of Treatment Upcoming Encounters Date Type Department Care Team (Late st Contact Info) Description 11/08/2024 3:30 PM EST Office Visit Dermatology at [place] [address] [place] [address] Prosper Schmidt MD [address] [facility], [place] [address] 12/14/2024 2:40 PM EST Office Visit Cardiology at [address] [place] [address] Benjie Garrison MD [facility] [place] [address] documented as of this encounter Visit Diagnoses Diagnosis Psoriasis Other psoriasis documented in this encounter Care Teams Junior Software Engineer Relationship Specialty Start Date End Date Maciej Szymanski DO [address] [place] [address] PCP - General 09/18/10 09/30/22 documented as of this encounter
--- OUTSIDE RECORDS SUMMARY | 2024-10-08 00:39 | XMS_ITS | Encounter Summary ---
Author Organization [facility] [place] [address] Care Team Providers Care Regular Senior Care Provider Name Role Phone Maciej Szymanski DO Primary Care Provider [phone] Reason for Visit * Reason Comments Psoriasis Encounter Details Date Type Department Care Team (Late st Contact Info) Description 12/22/2015 2:30 PM EST Office Visit Dermatology at [address] [place] [phone] Prosper Schmidt MD [address] [facility], [place] [address] Psoriasis Social History Tobacco Use Types Packs/Day [...] * Patient Instructions* Christina Wolfe LPN - 12/22/2015 2:44 PM EST Images from the original note were not included. [facility] Psoriasis: After Your Visit Your Care Instructions Psoriasis (say fwy-LS-ub-noble) is a long-term skin problem that causes [...] still damp. This seals in moisture. Use jzbd-ftl-mnoiboe products that your doctor suggests. These may [...] more? Visit our health information library at [email or web address] [employer]Mastodon [employer] You can also view health information on Six3, your personal patient account. Log in or sign up today. Enter U759 in the search box to learn more about Psoriasis: After Your Visit. ?? 9712-6497 [employer]. Care instructions adapted under license by [facility]. This care instruction is for use with your licensed healthcare professional. If you have questions about a medical condition or this instruction, always ask your healthcare professional. Anay BeC[employer] disclaims any warranty or liability for your use of this information. Content Version: 10.4.334651; Current as of: January 05, 2014 documented in this encounter Progress Notes * Prosper Schmidt MD - 12/22/2015 3:04 PM EST Problem: Followup psoriasis, back on methotrexate since August 2015. Ervin follows up and has been seen by Major Ibrahim of Hematology. He is getting three weekly iron infusions of 300 mg each infusion at [facility]. We are all hoping that this will help his anemia to improve. Labs obtained on 12/21 show his H and H to be 11.1 and 34.1 with normal transaminases, normal cholesterol and triglycerides. Ervin is quite happy to report that his psoriasis, as expected, back on methotrexate is melting away. Physical examination reveals that the papules and patches on the abdomen and arms have largely cleared. He still has two small patch plaques, one on the left and one on the right abdomen. He has had no itching. Assessment and Plan: Psoriasis, responding again well to methotrexate, 15 mg p.o. q.week. a. Continue current dosing, taking six of the 2.5 mg tablets p.o. q.week. Today #78 were given with zero refills, and this faxed into his [facility] pharmacy in [facility]. Also recommend that the patient continue his folate 1 mg p.o. q.day every day of the week except for the day he takes his methotrexate dosing; #90 dispensed for a three-month supply with three refills. c. Return to clinic in three months for repeat check on his psoriasis. Two to three days before that visit again obtain labs. New standing order was written and faxed to [facility]. Return to clinic in another three months. COPY: Maciej Szymanski D.O. documented in this encounter Plan of Treatment Upcoming Encounters Date Type Department Care Team (Late st Contact Info) Description 11/08/2024 3:30 PM EST Office Visit Dermatology at [address] [phone] Prosper Schmidt MD [address] [facility], LUAN Christoph DERMATOLOGY [place], [place] [id number] 12/14/2024 2:40 PM EST Office Visit Cardiology at [place] [address] [place] [address] Benjie Garrison MD [facility] [place] [address] documented as of this encounter Visit Diagnoses Diagnosis Psoriasis Other psoriasis documented in this encounter Care Teams Regular Senior Care Provider Relationship Specialty Start Date End Date Maciej Szymanski DO [address] [facility] 1 [place] [address] PCP - General 09/18/10 09/30/22 documented as of this encounter
--- OUTSIDE RECORDS SUMMARY | 2024-10-08 00:39 | XMS_ITS | Encounter Summary ---
Author Organization [facility] Address [facility] [place] [address] Care Team Providers Care Squadron Worker Name Role Phone Maciej Szymanski DO Primary Care Provider Reason for Visit * Reason Comments Follow-up Encounter Details Date Type Department Care Team (Late st Contact Info) Description 10/18/2016 4:15 PM EST Office Visit Dermatology at [address] [phone] Prosper Schmidt MD [address] [place] [address], [facility] [place] [address] Psoriasis Social History Tobacco Use Types Packs/Day [...] Progress Notes * Prosper Schmidt MD - 10/18/2016 4:15 PM EST PROBLEM: Followup psoriasis on methotrexate. Ervin follows up today and is doing well. His psoriasis remains almost entirely clear. He had a little bit of a flair on his back he states, but now that has cleared. He states he has nothing at all to show me today. He has no itching. He is tolerating the methotrexate well, and his labs from October 15 within normal limits. Today, Ervin is reading a book on how to recognize mushrooms. His father apparently was well versed in this also. Physical examination reveals that he has no active psoriasis. Today, he is clear except for his fingernails which continue to show evidence of nail chewing and dystrophic changes likely mostly due to nail biting. ASSESSMENT AND PLAN: Psoriasis. Responding well to methotrexate 15 mg p.o. q. week. a. Continue the current dosing taking 6 of the 2.5 mg tablets p.o. q. week. Today, #78 were given with 0 refills. These will be called into his [facility] in [facility]. He takes his methotrexate on Mondays. b. Continue folate 1 mg p.o. daily everyday except Mondays. He was given a 1 year supply December 12, 2015. c. Return to clinic in 2 months for recheck, 2 or 3 days prior to that obtain labs. We will renew standing orders at [facility]. cc: Maciej Szymanski DO documented in this encounter Plan of Treatment Upcoming Encounters Date Type Department Care Team (Late st Contact Info) Description 11/08/2024 3:30 PM EST Office Visit Dermatology at [address] [phone] Prosper Schmidt MD [address] [place] [address], [facility] [place] [address] 12/14/2024 2:40 PM EST Office Visit Cardiology at [address] [phone] Benjie Garrison MD [facility] [place] [address] documented as of this encounter Visit Diagnoses Diagnosis Psoriasis Other psoriasis documented in this encounter Care Teams Squadron Worker Relationship Specialty Start Date End Date Maciej Szymanski DO [address] [place] [address] [facility] 1 [place] [address] PCP - General 09/18/10 09/30/22 documented as of this encounter
--- OUTSIDE RECORDS SUMMARY | 2024-10-08 00:39 | XMS_ITS | Encounter Summary ---
Author Organization [facility] Address [facility] [place] [address] Care Team Providers Care Earth Science Professor Name Role Phone StephonMaciej hunter Primary Care Provider Encounter Details Date Type Department Care Team (Late st Contact Info) Description 11/22/2015 Orders Only [place] [address] Bernardo Britton MD [facility] [place] [address] Type 2 diabetes mellitus without complication Social History Tobacco Use Types Packs/Day Years [...] PM EST Office Visit Dermatology at [address] [place] [address] Prosper Schmidt MD [address] [facility] [address], [place] [address] 12/14/2024 2:40 PM EST Office Visit Cardiology at [address] [place] [address] Benjie Garrison MD [facility] [place] [address] documented as of this encounter Visit Diagnoses Diagnosis Type 2 diabetes mellitus without complication documented in this encounter Care Teams Earth Science Professor Relationship Specialty Start Date End Date Maciej Szymanski DO [address] [place] [address] [place] [address] PCP - General 09/18/10 09/30/22 documented as of this encounter
--- OUTSIDE RECORDS SUMMARY | 2024-10-08 00:39 | XMS_ITS | Encounter Summary ---
Author Organization [facility] Address [facility] [place] [address] Care Team Providers Care Seasonal Recruiter Name Role Phone Maciej Szymanski DO Primary Care Provider Reason for Visit * Reason Comments Psoriasis Encounter Details Date Type Department Care Team (Late st Contact Info) Description 04/04/2016 4:45 PM EDT Office Visit Dermatology at [address] [phone] Prosper Schmidt MD [address] [place] [address], [place] [address] Psoriasis Social History Tobacco Use Types Packs/Day [...] Progress Notes * Prosper Schmidt MD - 04/04/2016 5:04 PM EDT Problem: Followup psoriasis, on methotrexate. Ervin follows up and is doing well. His H and H are much better at 13.5 and 40, and other labs showing normal transaminases and normal lipid levels. He is quite happy with his level of control of psoriasis with just two patches, one on the left and one on the right abdomen. Otherwise he is clear. He has no itching. Physical examination confirms the above findings. Assessment and Plan: Psoriasis, responding well to methotrexate, 15 mg p.o. q.week. a. Continue current dosing, taking six of the 2.5 mg tablets p.o. q.week. Today #78 were given with zero refills, and this will be called in to his [facility] in [facility]. b. Also continue folate 1 mg p.o. q.day every day of the week except the day he takes his methotrexate. He was given a one-year supply on December 12. c. Return to clinic in another three months for repeat check. Two or three days prior to that, obtain labs. The patient has a standing order at [facility]. Return to clinic here in three months. COPY: Maciej Szymanski D.O. documented in this encounter Miscellaneous Notes * Addendum Note - Parker Doherty LPN - 04/04/2016 5:13 PM EDTAddended by: PARKER DOHERTY on: 04/04/2016 05:13 PM Modules accepted: Orders documented in this encounter Plan of Treatment Upcoming Encounters Date Type Department Care Team (Late st Contact Info) Description 11/08/2024 3:30 PM EST Office Visit Dermatology at [address] [phone] Prosper Schmidt MD [address] [place] [address], [facility] [address] 12/14/2024 2:40 PM EST Office Visit Cardiology at [address] [phone] Benjie Garrison MD [facility] [place] [address] documented as of this encounter Visit Diagnoses Diagnosis Psoriasis Other psoriasis documented in this encounter Care Teams Seasonal Recruiter Relationship Specialty Start Date End Date Maciej Szymanski DO [address] [place] [address] [address] [facility] 1 [place] [address] PCP - General 09/18/10 09/30/22 documented as of this encounter
--- OUTSIDE RECORDS SUMMARY | 2024-10-08 00:39 | XMS_ITS | Encounter Summary ---
Author Organization [facility] Address [facility] [place] [address] Care Team Providers Care Manager Oncology Name Role Phone Maciej Szymanski DO Primary Care Provider [phone] Reason for Visit * Reason Comments Follow-up Encounter Details Date Type Department Care Team (Late st Contact Info) Description 07/04/2016 4:45 PM EDT Office Visit Dermatology at [address] [phone] Prosper Schmidt MD [address] [place] [address], [place] [address] Psoriasis Social History Tobacco Use Types Packs/Day [...] Progress Notes * Prosper Schmidt MD - 07/04/2016 4:45 PM EDT PROBLEM: Followup for psoriasis, on methotrexate. Ervin is doing well. His psoriasis is better now than it has been recently with only a thinning patch plaque on his right flank, the left flank of the abdomen having cleared. Otherwise, he remains totally clear. He has no itching. He is tolerating the medication well. Labs were drawn at [facility] at 1:00 today. Physical examination confirms small erythematous papules that are all that remained of the thin patch plaque on the right flank, the center having cleared and much of the periphery as well. He has nothing on the left abdomen. His scalp is clear. He has no other areas of psoriasis. ASSESSMENT AND PLAN: Psoriasis, responding well to methotrexate 15 mg p.o. q. week. a. Continue the current dosing, taking six 11.25 mg tablets p.o. q. week, today number 78 were given with 0 refills. This will be called in to his [facility] in [facility]. He is taking these methotrexates on Mondays. b. Continue folate 1 mg p.o. q. day, every day except Mondays. He was given a 1 year supply on December 12, 2015. c. Return to clinic in 3 months for recheck, 2 or 3 days prior to that obtain labs. Patient has a standing order at [facility], which is good until November of 2016. cc: Maciej Szymanski D.O. documented in this encounter Plan of Treatment Upcoming Encounters Date Type Department Care Team (Late st Contact Info) Description 11/08/2024 3:30 PM EST Office Visit Dermatology at [address] [phone] Prosper Schmidt MD [address] [place] [address], [facility] [place] [address] 12/14/2024 2:40 PM EST Office Visit Cardiology at [address] [phone] Benjie Garrison MD [facility] [place] [address] documented as of this encounter Visit Diagnoses Diagnosis Psoriasis Other psoriasis documented in this encounter Care Teams Manager Oncology Relationship Specialty Start Date End Date Maciej Szymanski DO [facility] [address] [place] [address] PCP - General 09/18/10 09/30/22 documented as of this encounter
--- OUTSIDE RECORDS SUMMARY | 2024-10-08 00:39 | XMS_ITS | Encounter Summary ---
Author Organization [facility] [place] [address] Care Team Providers Care Ice Cream Shop Associate Name Role Phone Maciej Szymanski DO Primary Care Provider Reason for Visit * Reason Comments Skin Lesion Encounter Details Date Type Department Care Team (Late st Contact Info) Description 07/20/2015 2:30 PM EDT Office Visit Dermatology at [address] [place] [phone] Prosper Schmidt MD [address] [place] [address], [place] [address] Epidermal cyst Discharge Disposition: Home Social History [...] * Patient Instructions* Christina Wolfe LPN - 07/20/2015 2:43 PM EDT Images from the original note were not included. [facility] Skin Lesion Removal: What to Expect at Home Your Recovery After your procedure, you should not have much pain. But some soreness, swelling, or bruising is normal. Your doctor may recommend zecl-lch-oypgzow medicines to help with any discomfort. Most people can return to their normal routine the same day of their procedure. How quickly your wound heals depends on the size of your wound and the type of procedure you had. Most wounds take 1 to 3 weeks to heal. If you had laser surgery, your skin may change color and then slowly return to its normal color. You may need only a bandage, or you may need stitches. If you had stitches, your doctor will probably remove them 5 to 14 days later. If you have the type of stitches that dissolve, they do not have to be removed. They will disappear on their own. This care sheet gives you a general idea about how long it will take for you to recover. But each person recovers at a different pace. Follow the steps below to get better as quickly as possible. How can you care for yourself at home? Activity ?? For the first few days, try not to bump or knock your wound. ?? Depending on where your wound is, you may need to avoid strenuous exercise for 2 weeks after theprocedure or until your doctor says it is okay. ?? If you have had a lesion removed from your face, do not use makeup near your wound until you have your stitches taken out. ?? Ask your doctor when it is okay to shower, bathe, or swim. Medicines ?? Take pain medicines exactly as directed. ?? If the doctor gave you a prescription medicine for pain, take it as prescribed. ?? If you are not taking a prescription pain medicine, ask your doctor if you can take an fchq-xrk-schhsjy medicine. Wound care ?? Keep the wound bandaged and dry for the first day. ?? Clean the wound with soap and water 2 times a day unless your doctor gives you different instructions. Don't use hydrogen peroxide or alcohol, which can slow healing. ?? You may cover the wound with a thin layer of petroleum jelly, such as Vaseline, and a nonstick bandage. ?? If you have stitches, you may get other instructions. ?? If a scab forms, do not pull it off. Let it fall off on its own. Wounds heal faster if no scab forms. Washing the area every day and using the ointment will help prevent a scab from forming. ?? If the wound bleeds, put direct pressure on it with a clean cloth until the bleeding stops. ?? If you had a growth frozen off, you may get a blister. Do not break it. Let it dry up on its own. It is common for the blister to fill with blood. You do not need to do anything about this, but if it becomes too painful, call your doctor. ?? Avoid the sun until your stitches are removed. Follow-up care is a nicholson part of your treatment and safety. Be sure to make and go to all appointments, and call your doctor if you are having problems. It's also a good idea to know your test resultsand keep a list of the medicines you take. When should you call for help? Call 911 anytime you think you may need emergency care. For example, call if: ?? You passed out (lost consciousness). ?? You have severe trouble breathing. ?? You have sudden chest pain and shortness of breath, or you cough up blood. Call your doctor now or seek immediate medical care if: ?? You have signs of infection, such as: ?? Increased pain, swelling, warmth, or redness. ?? Red streaks leading from the wound. ?? Pus draining from the wound. ?? A fever. ?? You have pain that does not get better after you take pain medicine. ?? You have loose stitches. Watch closely for changes in your health, and be sure to contact your doctor if you have any problems. Where can you learn more? Visit our health information library at [email or web address] You can also view health information on Kovio, your personal patient account. Log in or sign up today. Enter Q228 in the search box to learn more about Skin Lesion Removal: What to Expect at Home. ?? [id number] [employer], [employer]. Care instructions adapted under license by [facility]. This care instruction is for use with your licensed healthcare professional. If you have questions about a medical condition or this instruction, always ask your healthcare professional. [employer] disclaims any warranty or liability for your use of this information. Content Version: 10.4.208463; Current as of: January 05, 2014 documented in this encounter Progress Notes * Prosper Schmidt MD - 07/20/2015 3:14 PM EDT Clinical Impression: Follicular cyst, right upper back. Size: 1.5 cm. Deep Suture: 4-0 Vicryl. Surface Suture: 4-0 Ethilon. Followup: In 10 to 14 days for suture removal and biopsy results. Indications for surgery, possible adverse outcomes, and activity restrictions were discussed. Informed verbal consent was obtained. The skin surface was prepared with 4% chlorhexidine and draped in the usual sterile manner. Local anesthesia with 1% lidocaine, 1:100,000 epinephrine, and 0.1 mEq/mL bicarbonate. Using a #15 blade, an elliptical incision was carried out around the lesion. It was then dissected free and submitted for pathologic analysis. Layered closure performed. Wound dressed and wound care reviewed. End length of suture line was 3 cm. Follow up in 10 to 14 days for suture removal and biopsy results. Note: The patient has an appointment tomorrow with Dr. Steele regarding his anemia. We are holding his methotrexate until we find the cause of his blood loss and correct it. COPY: Maciej Szymnaski D.O. documented in this encounter Plan of Treatment Upcoming Encounters Date Type Department Care Team (Late st Contact Info) Description 11/08/2024 3:30 PM EST Office Visit Dermatology at [address] [phone] Prosper Schmidt MD [address] [place] [address], [facility] DERMATOLOGY [place], [place] [id number] 12/14/2024 2:40 PM EST Office Visit Cardiology at [address] [phone] Benjie Garrison MD [facility] [place] [address] documented as of this encounter Visit Diagnoses Diagnosis Epidermal cyst Sebaceous cyst documented in this encounter Care Teams Ice Cream Shop Associate Relationship Specialty Start Date End Date Maciej Szymanski DO [address] [place] [address] PCP - General 09/18/10 09/30/22 documented as of this encounter
--- OUTSIDE RECORDS SUMMARY | 2024-10-08 00:39 | XMS_ITS | Encounter Summary ---
Author Organization [facility] Address [facility] [place] [address] Care Team Providers Care Satellite Manager Name Role Phone Maciej Szymanski DO Primary Care Provider Reason for Visit * Reason Comments Follow-up Psoriasis Encounter Details Date Type Department Care Team (Late st Contact Info) Description 02/28/2017 3:00 PM EDT Office Visit Dermatology at [address] [phone] Prosper Schmidt MD [address] [place] [address], [facility] [place] [address] Psoriasis Social History Tobacco Use Types Packs/Day [...] Progress Notes * Prosper Schmidt MD - 02/28/2017 3:00 PM EDT PROBLEM: Followup psoriasis, on methotrexate. Ervin follows up a little bit belatedly because he missed an appointment in December. We gave him enough medicine to last until today. Labs in December were within normal limits. Methotrexate continues to work well for him. He only has a single spot of psoriasis, a quarter size plaque on his right flank. He is not having any nausea or side effects from the methotrexate. Physical examination reveals that indeed he has 1 small plaque of psoriasis on the right flank. He has no evidence of other psoriasis on the elbows or knees. A/P: Psoriasis, well controlled on methotrexate. a. Continue current dosing, taking 6 of the 2.5 mg tablets p.o. q. week for 15 mg of methotrexate a week. Today, I have given him #78 with 0 refills. This will be called into his [facility] in [facility]. He takes his med on Mondays. b. Continue folate 1 mg p.o. daily every day, except the day he takes the methotrexate (Mondays). Dispensed #90 for a 3-month supply with 3 refills. c. Return to clinic in another 3 months for repeat check. Two to 3 days prior to that, obtain labs. We will renew standing orders at [facility] at the time of his next visit. cc: Maciej Szymanski DO documented in this encounter Plan of Treatment Upcoming Encounters Date Type Department Care Team (Late st Contact Info) Description 11/08/2024 3:30 PM EST Office Visit Dermatology at [address] [phone] Prosper Schmidt MD [address] [place] [address], [facility] [place] [address] 12/14/2024 2:40 PM EST Office Visit Cardiology at [address] [address] Benjie Garrison MD [facility] [place] [address] documented as of this encounter Visit Diagnoses Diagnosis Psoriasis Other psoriasis documented in this encounter Care Teams Satellite Manager Relationship Specialty Start Date End Date Maciej Szymanski DO [address] [place] [address] [address] [facility] 1 [place] [address] PCP - General 09/18/10 09/30/22 documented as of this encounter
--- OUTSIDE RECORDS SUMMARY | 2024-10-08 00:39 | XMS_ITS | Encounter Summary ---
Author Organization [facility] Address [facility] [place] [address] Care Team Providers Care Land Appraiser Name Role Phone Maciej Szymanski DO Primary Care Provider Reason for Visit * Consultation (Urgent) - Closed Specialty Diagnoses / Procedures Referred By Zenaida zuniga Referred To Contact Hematology and Oncology Diagnoses REFRACTORY ANEMIA Maciej Szymanski DO [address] [place] [address] [facility] Hem Onc [address] [place] [address] Referral ID Status Reason Start Date Expiration Date V isits Requested Visits Authorized [id number] Closed Consult, Test & Treat Connection [facility] 11/21/2015 11/20/2016 1 1 Encounter Details Date Type Department Care Team (Late st Contact Info) Description 12/04/2015 3:45 PM EST Office Visit Hematology [place] [address] Major Ibrahim MD [facility] [address] HEMATOLOGY [place] [address] Mirna Hancock APRN [facility] HEMATOLOGY [place] [address] Iron deficiency anemia Social History Tobacco Use Types Packs/Day Years [...] Sign Reading Time Taken Comments Blood Pressure 118/76 12/04/2015 3:49 PM EST Pulse 107 12/04/2015 3:49 PM EST Temperature 37 ??C (98.6 ??F) 12/04/2015 3:49 PM EST Respiratory Rate 18 12/04/2015 3:49 PM EST Oxygen Saturation 100% 12/04/2015 3:49 PM EST Inhaled Oxygen Concentration - - Weight 64.7 kg (142 lb 10.2 oz) 12/04/2015 3:49 PM EST Height 172.7 cm (5' 8) 12/04/2015 3:49 PM EST Body Mass Index 21.69 12/04/2015 3:49 PM EST documented in this encounter Progress Notes * Major Ibrahim MD - 12/04/2015 3:53 PM EST Subjective: Patient ID: Ervin Helms is a 49 y.o. male. HPI The patient is a 49-year-old man referred by Dr. Szymanski for consultation regarding refractory anemia. The patient is a 49-year-old man. He has some chronic medical problems including Huang's esophagus and restrictive lung disease based on back surgery he had as a child. Nonetheless he is quite functional. In reviewing his information he developed a microcytic anemia that progressed over several months. He had documented low iron stores including a ferritin that was clearly iron deficient. About 4-6 months ago he initiated oral iron therapy. He has had some improvement in his anemia but his ferritin remains low. He denies pica. He denies any active bleeding. He did have an upper and lower endoscopy which did not reveal obvious bleeding. This was performed at [facility] by Dr. Mack. He also had a negative test for sprue, negative SPEP and UPEP, normal LFTs In the past he had been on Aleve but that was discontinued. He has also been treated with methotrexate for a question of psoriatic arthritis. That has been stopped but no improvement in his anemia. Patient Active Problem List Diagnosis Code ??? Psoriasis L40.9 ??? Verruca vulgaris B07.9 ??? Type II or unspecified type diabetes mellitus without mention of complication, uncontrolled E11.65 ??? GERD (gastroesophageal reflux disease) K21.9 ??? Epidermal cyst L72.0 ??? Visit for suture removal Z48.02 psoriatic arthritis Huang's esophagus Current Outpatient Prescriptions on File Prior to Visit Medication Sig Dispense Refill ??? ferrous gluconate 324 mg (37.5 mg iron) Tablet Take 324 mg by mouth 2 times daily. 0 ??? meloxicam (MOBIC) 15 mg Tablet Take 15 mg by mouth daily. 0 ??? metFORMIN (GLUCOPHAGE) 1,000 mg Tablet Take 1,000 mg by mouth 2 times daily. 0 ??? glipiZIDE (GLUCOTROL) 5 mg Tablet Take 2 tablets by mouth 2 times daily (before meals). Take 2 tablets before evening meal when glucose is above 161 120 tablet 11 ??? FREESTYLE LITE STRIPS Strip 1 each 2 times daily. 0 ??? NOVOFINE 32 32 x 1/4 Needle Inject 1 each subcutaneously 2 times daily. 0 ??? methotrexate 2.5 mg Tablet Take 6 tablets by mouth once a week. 6 tablet 0 ??? triamcinolone (KENALOG) 0.1 % cream ??? folic acid (FOLVITE) 1 mg tablet Take 1 mg by mouth daily. ??? insulin glargine (LANTUS SOLOSTAR) pen injection Inject 10-17 Units subcutaneously 2 times daily. 10 units in the morning, and 15 units at night ??? ascorbic acid (VITAMIN C) 250 mg tablet Take 250 mg by mouth 2 times daily. ??? omeprazole (PRILOSEC) 20 mg capsule Take 1 capsule by mouth 2 times daily. 60 capsule 12 ??? canagliflozin 300 mg Tablet Take 300 mg by mouth daily. 30 tablet 11 ??? loratadine (CLARITIN) 10 mg tablet Take 10 mg by mouth daily. No current facility-administered medications on file prior to visit. Allergies Allergen Reactions ??? Sulfa (Sulfonamide Antibiotics) History Social History ??? Marital Status: Spouse Name: N/A Number of Children: N/A ??? Years of Education: N/A Occupational History ??? Not on file. Social History Main Topics ??? Smoking status: Former Smoker -- 0.25 packs/day for 5 years Types: Cigarettes Quit date: 12/27/1988 ??? Smokeless tobacco: Never Used ??? Alcohol Use: No ??? Drug Use: Not on file ??? Sexual Activity: Not on file Other Topics Concern ??? Not on file Social History Narrative Family History Problem Relation Age of Onset ??? Cancer Mother ??? Heart Disease Brother Review of Systems Constitutional: Negative for fever, fatigue and unexpected weight change. HENT: Negative for nosebleeds. Respiratory: Negative for cough and shortness of breath. Cardiovascular: Negative for chest pain and palpitations. Gastrointestinal: Negative for abdominal pain and diarrhea. Musculoskeletal: Negative for back pain. Skin: Negative for rash. Neurological: Negative for speech difficulty. Hematological: Negative for adenopathy. Does not bruise/bleed easily. All other systems reviewed and are negative. Objective: Physical Exam Constitutional: He is oriented to person, place, and time. He appears well- nourished. No distress. HENT: Mouth/Throat: No oropharyngeal exudate. Eyes: No scleral icterus. Cardiovascular: Normal rate, regular rhythm and normal heart sounds. Pulmonary/Chest: Breath sounds normal. He has no wheezes. Abdominal: Soft. Bowel sounds are normal. There is no splenomegaly. There is no tenderness. Musculoskeletal: He exhibits no edema. Lymphadenopathy: He has no cervical adenopathy. He has no axillary adenopathy. Right: No inguinal adenopathy present. Left: No inguinal adenopathy present. Neurological: He is oriented to person, place, and time. Recent Results (from the past 72 hour(s)) Reticulocyte Count Result Value Ref Range Retic Ct % 0.8 0.5 - 2.4 % Retic Ct Abs 0.040 0.027 - 0.095 x10(6)/mcL Immature Retic% 5.6 2.3 - 15.9 % Reticulated Hgb 27.7 (L) 28.5 - 38.9 pg Plat Immature % 0.8 0.0 - 7.4 % Ferritin Result Value Ref Range Ferritin 13 (L) 30 - 400 ng/mL Protein Electrophoresis, serum Result Value Ref Range Total Prot Elec 7.4 6.1 - 8.0 gm/dL Folate, serum Result Value Ref Range Folate Lvl >20.0 4.6 - 34.8 ng/mL Vitamin B12 Result Value Ref Range Vitamin B-12 784 207 - 974 pg/mL Hemogram Result Value Ref Range WBC 8.9 4.0 - 10.0 x10(3)/mcL RBC 4.84 4.63 - 6.08 x10(6)/mcL Hemoglobin 11.8 (L) 13.7 - 17.5 gm/dL Hematocrit 37.1 (L) 40.0 - 51.0 % MCV 76.7 (L) 79.0 - 92.0 fL MCH 24.4 (L) 25.6 - 32.2 pg MCHC 31.8 (L) 32.0 - 36.5 gm/dL Platelets 464 (H) 145 - 370 x10(3)/mcL RDWSD 54.1 (H) 35.0 - 46.0 fL RDWCV 19.9 (H) 10.9 - 14.4 % MPV 9.2 9.0 - 12.0 fL Differential, Automated Result Value Ref Range Neutrophils % 68.9 % Neutr Abs (ANC) 6.12 1.50 - 6.30 x10(3)/mcL Lymphocytes % 21.7 % Lymphocytes Abs 1.9 1.0 - 3.6 x10(3)/mcL Monocytes % 7.0 % Monocyte Abs 0.6 0.2 - 1.0 x10(3)/mcL Eosinophils % 1.7 % Eosinophils Abs 0.2 0.0 - 0.5 x10(3)/mcL Basophils % 0.6 % Basophils Abs 0.0 0.0 - 0.2 x10(3)/mcL Immature Gran % 0.10 % [place] Gran Abs 0.01 0.00 - 0.05 x10(3)/mcL Assessment and Plan: 49-year-old man with microcytic anemia. Initial markers were consistent with iron deficiency and hehas been on oral iron. Despite several months of oral iron he still has parameters to indicate persistent iron deficiency. I suspect his source of iron loss was the GI tract. He may not have any ongoing losses right now but just cannot get totally replete on oral iron. I recommended as an initial step making sure he gets iron replete. To do this I would recommend intravenous iron. I would recommend venofer at 300 mg weekly for 3 weeks. We will try to arrange for that to be done in the [facility]. I would like to see him back in about 4 or 5 weeks after the infusion which will allow him a chanceto incorporate that iron to see if he has normalized his hemoglobin. At that point we may be able to tell if there are other components to his anemia. documented in this encounter Plan of Treatment Upcoming Encounters Date Type Department Care Team (Late st Contact Info) Description 11/08/2024 3:30 PM EST Office Visit Dermatology at [address] [place] [address] Prosper Schmidt MD [address] [place] [address], [place] [address] 12/14/2024 2:40 PM EST Office Visit Cardiology at [address] [place] [address] Benjie Garrison MD [facility] [place] [address] documented as of this encounter Procedures Procedure Name Priority Date/Time Associated Diagnosis Comments HEMOGRAM STAT 12/04/2015 4:31 PM EST Iron deficiency anemia DIFFERENTIAL, AUTOMATED STAT 12/04/2015 4:31 PM EST Iron deficiency anemia RETICULOCYTE COUNT STAT 12/04/2015 4: 31 PM EST Iron deficiency anemia CBC (WITH DIFF) STAT 12/04/2015 4:31 PM EST Iron deficiency anemia PROTEIN ELECTROPHORESIS, SERUM STAT 12/04/2015 4:31 PM EST Iron deficiency anemia FOLATE, SERUM STAT 12/04/2015 4:31 PM EST Iron deficiency anemia FERRITIN STAT 12/04/2015 4:31 PM EST Iron deficiency anemia VITAMIN B12 STAT 12/04/2015 4:31 PM EST Iron deficiency anemia documented in this encounter Results * Reticulocyte Count (01/29/2016 10:26 AM EDT) [facility] Reticulocyte % 1.1 0.5 - 2.4 % [facility] Retic Abs # 0.050 0.027 - 0.095 x10(6)/mcL [facility] Immature Retic% 4.6 2.3 - 15.9 % [facility] Reticulated Hgb 33.8 28.5 - 38.9 pg [facility] Immature Plt % 1.2 0.0 - 7.4 % [facility] Blood specimen (specimen) 01/29/2016 10:26 AM EDT 01/29/2016 10:41 AM EDT Narrative Resulting Agency Comment Spec In Lab Major Ibrahim MD HEMATOLOGY ORDERABLE S [facility] [place] [address] * Ferritin (01/29/2016 10:26 AM EDT) [facility] Ferritin 185 30 - 400 ng/mL [facility] Comment: Pediatric reference ranges not verified at [facility], interpret with caution. Reference ranges for females greater than 50 years of age approach values for men, i.e., 30-400 ng/mL. Blood specimen (specimen) 01/29/2016 10:26 AM EDT 01/29/2016 10:41 AM EDT Narrative Resulting Agency Comment Spec In Lab Major Ibrahim MD CHEMISTRY ORDERABLES [facility] [place] [address] * Differential, Automated (12/04/2015 4:31 PM EST) [facility] Neutrophil % 68.9 % CERNER MILLENNIUM Neutrophil Absolute 6.12 1.50 - 6.30 x10(3)/mcL CERNER MILLENNIUM Lymph % 21.7 % CERNER MILLENNIUM Lymphocytes Abs 1.9 1.0 - 3.6 x10(3)/mcL [facility]ERNER MILLENNIUM Monocyte % 7.0 % CERNER MILLENNIUM Monocyte Abs 0.6 0.2 - 1.0 x10(3)/mcL CERNER MILLENNIUM Eos % 1.7 % CERNER MILLENNIUM Eosinophils Abs 0.2 0.0 - 0.5 x10(3)/mcL CERNER MILLENNIUM Basophil % 0.6 % CERNER MILLENNIUM Baso Absolute 0.0 0.0 - 0.2 x10(3)/mcL [facility] MILLENNIUM Immature Gran % 0.10 % [facility] MILLENNI[facility] Comment: Immature granulocytes(IG's)percentage and absolute count will include metamyelocytes, myelocytes, and promyelocytes. Blood smears from CBCs yielding IG's will be scanned manually for concordance. If this scan disagrees with the automated IG or if promyelocytes are noted, a manual differential will be performed. Immature Gran Absolute 0.01 0.00 - 0.05 x10(3)/mcL [facility] MILLENNIUM Blood specimen (specimen) 12/04/2015 4:31 PM EST 12/04/2015 5:07 PM EST Narrative Resulting Agency Comment Spec In Lab Major Ibrahim MD HEMATOLOGY ORDERABLE S CERNER MILLENNIUM * (ABNORMAL) Hemogram (12/04/2015 4:31 PM EST) White Blood Cell 8.9 4.0 - 10.0 x10(3)/mc L CERNER MILLENNIUM Red Blood Cell 4.84 4.63 - 6.08 x10(6)/mc L [facility]ERNER MILLENNIUM Hemoglobin 11.8(L) 13.7 - 17.5 gm/dL [facility]ERNER MILLENNIUM Hematocrit 37.1(L) 40.0 - 51.0 % CERNER MILLENNIUM Mean Cell Volume 76.7(L) 79.0 - 92.0 fL CERNER MILLENNIUM Mean Cell Hemoglobin 24.4(L) 25.6 - 32.2 pg CERNER MILLENNIUM Mean Cell Hemoglobin Concentration 31.8(L) 32.0 - 36.5 gm/dL CERNER MILLENNIUM Platelet 464(H) 145 - 370 x10(3)/mc L CERNER MILLENNIUM RDW Standard Deviation 54.1(H) 35.0 - 46.0 fL CERNER MILLENNIUM RDW coefficient of variation 19.9(H) 10.9 - 14.4 % CERNER MILLENNIUM Mean Platelet Volume 9.2 9.0 - 12.0 fL CERNER MILLENNIUM Blood specimen (specimen) 12/04/2015 4:31 PM EST 12/04/2015 5:07 PM EST Narrative Resulting Agency Comment Spec In Lab Major Ibrahim MD HEMATOLOGY ORDERABLE S Performing Organization Address [facility] Phone Number ANEUDY ANGULOIUM * Vitamin B12 (12/04/2015 4:31 PM EST) Pathologist [facility] Vitamin B12 784 207 - 974 pg/mL ANEUDY CAMEJOENNIUM Blood specimen (specimen) 12/04/2015 4:31 PM EST 12/04/2015 5:07 PM EST Narrative Resulting Agency Comment Spec In Lab Major Ibrahim MD CHEMISTRY ORDERABLES Performing Organization Address [facility] Phone Number ANEUDY ANGULOIUM * Folate, serum (12/04/2015 4:31 PM EST) Pathologist [facility] Folate >20.0 4.6 - 34.8 ng/mL [facility] C[facility] Blood specimen (specimen) 12/04/2015 4:31 PM EST 12/04/2015 5:07 PM EST Narrative Resulting Agency Comment Spec In Lab Major Ibrahim MD CHEMISTRY ORDERABLES Performing Organization Address [facility] Co de Phone Number [facility] * Protein Electrophoresis, serum (12/04/2015 4:31 PM EST) Total Prot Electrophoresis 7.4 6.1 - 8.0 gm/dL CERNER MILLENNIUM Albumin Electrophoresis 4.79 3.60 - 6.00 gm/dL CERNER MILLENNIUM Alpha 1 Globulin 0.18 0.10 - 0.30 gm/dL CERNER MILLENNIUM Alpha 2 Globulin 0.70 0.40 - 0.90 gm/dL CERNER MILLENNIUM Beta Globulin 0.81 0.50 - 1.00 gm/dL CERNER MILLENNIUM Gamma Globulin 0.93 0.50 - 1.30 gm/dL CERNER MILLENNIUM M1 Band None Detected CERNER MILLENNIUM Blood specimen (specimen) 12/04/2015 4:31 PM EST 12/04/2015 5:07 PM EST Narrative Resulting Agency Comment Spec In Lab Major Ibrahim MD CHEMISTRY ORDERABLES Performing Organization Address [facility] Co de Phone Number CERNER MILLENNIUM * (ABNORMAL) Ferritin (12/04/2015 4:31 PM EST) Ferritin 13(L) 30 - 400 ng/mL CERNER MILLENNIUM Comment: Pediatric reference ranges not verified at [facility], interpret with caution. Reference ranges for females greater than 50 years of age approach values for men, i.e., 30-400 ng/mL. Blood specimen (specimen) 12/04/2015 4:31 PM EST 12/04/2015 5:07 PM EST Narrative Resulting Agency Comment Spec In Lab Major Ibrahim MD CHEMISTRY ORDERABLES CERRYNE CAMEJOENNIUM * (ABNORMAL) Reticulocyte Count (12/04/2015 4:31 PM EST) Reticulocyte % 0.8 0.5 - 2.4 % CERNER MILLENNIUM Retic Abs # 0.040 0.027 - 0.095 x10(6)/mcL CERNER MILLENNIUM Immature Retic% 5.6 2.3 - 15.9 % CERNER MILLENNIUM Reticulated Hgb 27.7(L) 28.5 - 38.9 pg CERNER MILLENNIUM Immature Plt % 0.8 0.0 - 7.4 % ANEUDY BASHIRJACOB Blood specimen (specimen) 12/04/2015 4:31 PM EST 12/04/2015 5:07 PM EST Narrative Resulting Agency Comment Spec In Lab Major Ibrahim MD HEMATOLOGY ORDERABLE S ANEUDY HOLBROOK documented in this encounter Visit Diagnoses Diagnosis Iron deficiency anemia Iron deficiency anemia, unspecified documented in this encounter Care Teams Land Appraiser Relationship Specialty Start Date End Date Maciej Szymanski DO [address] [place] [address] PCP - General 09/18/10 09/30/22 documented as of this encounter
--- OUTSIDE RECORDS SUMMARY | 2024-10-08 00:39 | XMS_ITS | Encounter Summary ---
Author Organization [facility] Address [facility] [place] [address] Care Team Providers Care R D Engineer Name Role Phone StephonMaciej hunter Primary Care Provider Encounter Details Date Type Department Care Team (Late st Contact Info) Description 10/18/2016 Refill Dermatology at [address] [phone] Daisy Keita LPN Social History [...] PM EST Office Visit Dermatology at [address] [address] Prosper Schmidt MD [address] [place] [address], [facility] DERMATOLOGY [place], [place] [id number] 12/14/2024 2:40 PM EST Office Visit Cardiology at [address] [address] Bnejie Garrison MD [facility] [place] [address] documented as of this encounter Visit Diagnoses Not on filedocumented in this encounter Care Teams R D Engineer Relationship Specialty Start Date End Date Maciej Szymanski DO [address] [place] [address] PCP - General 09/18/10 09/30/22 documented as of this encounter
--- OUTSIDE RECORDS SUMMARY | 2024-10-08 00:39 | XMS_ITS | Encounter Summary ---
Author Organization [facility] Address [facility] [place] [address] Care Team Providers Care Puppet Engineer Name Role Phone Stephon Maciej ORTIZ Primary Care Provider [phone] Reason for Visit * Reason Comments Medication Refill Encounter Details Date Type Department Care Team (Late st Contact Info) Description 11/24/2016 Refill [place] [address] Bernardo Britton MD [facility] [place] [address] Social History Tobacco Use Types Packs/Day Years [...] PM EST Office Visit Dermatology at [address] [place] [address] Prosper Schmidt MD [address], [place] [address] 12/14/2024 2:40 PM EST Office Visit Cardiology at [address] [place] [address] Benjie Garrison MD [facility] [place] [place] [address] documented as of this encounter Visit Diagnoses Not on filedocumented in this encounter Care Teams Puppet Engineer Relationship Specialty Start Date End Date Maciej Szymanski DO [address] [place] [address] PCP - General 09/18/10 09/30/22 documented as of this encounter
--- OUTSIDE RECORDS SUMMARY | 2024-10-08 00:39 | XMS_ITS | Encounter Summary ---
Author Organization [facility] Address [facility] [place] [address] Care Team Providers Care Business Development Professional Name Role Phone Maciej Szymanski DO Primary Care Provider Reason for Visit * Reason Comments Diabetes Encounter Details Date Type Department Care Team (Latest Contact Info) Description 02/19/2016 3:00 PM EDT Office [place] [address] [facility] [place] [address] Diabetes mellitus type 2, uncomplicated Social History [...] Sign Reading Time Taken Comments Blood Pressure 100/80 02/19/2016 2:46 PM EDT Pulse 99 02/19/2016 2:46 PM EDT Temperature - - Respiratory Rate - - Oxygen Saturation 99% 02/19/2016 2:46 PM EDT Inhaled Oxygen Concentration - - Weight 64.9 kg (143 lb) 02/19/2016 2:46 PM EDT Height 172.7 cm (5' 8) 02/19/2016 2:46 PM EDT Body Mass Index 21.74 02/19/2016 2:46 PM EDT documented in this encounter Patient Instructions * Patient Instructions* [facility] New APRN - 02/19/2016 3:17 PM EDT Lower AM lantus dose to 6 units. If AM fasting glucose is under 90, then stop AM lantus (may need to increase PM dose by 2 units to get fasting AM glucose between 90-130 Great job lowering hGBA1C!! documented in this encounter Progress Notes * [facility] New APRN - 02/19/2016 6:06 PM EDT DATE OF VISIT: 02/19/16 REASON FOR VISIT: Followup type 2 DM now in good control. BRIEF HISTORY: Presents and brings detailed blood glucose log. SBGM 2-3 times a day. Date of diagnosis of diabetes: 2008. Diabetes regimen: Glipizide 5 mg 1-2 tablets before breakfast and before evening meal, metformin 1000 mg twice a day, Lantus insulin 10 units a.m., 11 units p.m. He takes canagliflozin 300 mg in a.m. Twenty-four hour meal plan: Breakfast is cereal, lunch is a sandwich, evening meal with fish and rice. Physical activity is walking. PAST MEDICAL HISTORY: Huang's esophagus, psoriasis. REVIEW OF SYSTEMS: Depression and mood overall is doing well. Eyes: Has had cataracts removed. No recent headaches or chest pain or shortness of breath. Appetite is good. Sleep pattern is good. Extremities are okay. PHYSICAL EXAM: APPEARANCE: He appears in very good health. Weight 143 pounds. Blood pressure 100/80. EYES: No retinopathy with green light exam. NECK: No thyromegaly or lymphadenopathy. HEART: Regular rate and rhythm. No murmurs. LUNGS: Clear to auscultation. FEET: Skin is normal. Pulses are normal. NEURO: Normal sensation to 10-g of pressure. SPINE: With obvious scoliosis. IMPRESSION AND PLAN: DM type 2. Reviewed detailed blood glucose log. Several morning glucose levels are under 90. Advised to lower the a.m. Lantus dose to 6 units. If fasting glucose is still under 100, to stop the a.m. Lantus. Hemoglobin A1C 7.1%. Gave patient copy of his lab results and reviewed them with him. Return to office in 6 months. Will check hemoglobin A1c, DLDL, and other labs that he is due for. This was a 35 minute office visit with 34 minutes spent counseling wewr-hc-wbsw with patient in the management of glucose levels, lowering a.m. Lantus dose, reviewing target glucose, fasting above 90 target. Recent Results (from the past 72 hour(s)) Hemoglobin A1c Result Value Ref Range Hemoglobin A1C 7.1 (H) 4.3 - 5.6 % Est Avg Gluc 157 mg/dL Creatinine Result Value Ref Range Creatinine 1.30 0.80 - 1.50 mg/dL Estimated GFR 59 (L) >=60 documented in this encounter Plan of Treatment Upcoming Encounters Date Type Department Care Team (Late st Contact Info) Description 11/08/2024 3:30 PM EST Office Visit Dermatology at [address] [phone] Prosper Schmidt MD [address] [place] [address], [facility] [address] 12/14/2024 2:40 PM EST Office Visit Cardiology at [address] [phone] Benjie Garrison MD [facility] [place] [address] documented as of this encounter Results * Lipid panel (fasting) (12/25/2016 2:56 PM EST) [facility] Signature Cholesterol, Total 160 <=239 mg/dL [facility] Triglyceride 108 <=199 mg/dL [facility] HDL Cholesterol 52 >=40 mg/dL [facility] LDL Cholesterol 86 <=190 mg/dL [facility] Cholesterol/HDL Ratio 3.1 ratio [facility] Lipid Interpretation See Note [facility] Comment: Lipid management should be guided by a patient? s ASCVD risk, goals and preferences. ACC/AHA Guidelines recommend high intensity statin if clinical ASCVD or LDL greater than or equal to 190 mg/dL. http://circ.ahajournals.org/content/early/.cir.6633443990.75260.7a Adults aged 40-75 with LDL 70-189 mg/dL should have their 10 year ASCVD risk estimated with the ACC/AHA ASCVD risk hvac estimator http://tools.acc.org/LOZSR-Fgee-Orcgpengj/ Statin should be discussed if risk greater [...] In Lab Bernardo Britton MD CHEMISTRY ORDERABLES [facility] [place] [address] * (ABNORMAL) Hemoglobin A1c (12/25/2016 2:56 PM EST) Hemoglobin A1c 7.5(H) 4.3 - 5.6 % [facility] [...] Mellitus, Diabetes Care 2013; 36: Suppl. 1, P94-52 Estimated Average Glucose 169 mg/dL [facility] Comment: [...] resources are available on the ADA website: http://MiddleGate.com/DHMCadacalc Jon MURPHY, Carol J, Tino R, et al. ??Translating the A1C assay into estimated average glucose values. ??Diabetes Care 2008:31(8):2884-3776. Blood specimen (specimen) 12/25/2016 2:56 PM EST 12/25/2016 3:03 PM EST Narrative Resulting Agency Comment Spec In Lab Bernardo Britton MD CHEMISTRY ORDERABLES [facility] [place] [address] documented in this encounter Visit Diagnoses Diagnosis Diabetes mellitus type 2, uncomplicated Type II or unspecified type diabetes mellitus without mention of complication, not stated as uncontrolled documented in this encounter Care Teams Business Development Professional Relationship Specialty Start Date End Date Maciej Szymanski DO [address] [place] [address] PCP - General 09/18/10 09/30/22 documented as of this encounter
--- OUTSIDE RECORDS SUMMARY | 2024-10-08 00:39 | XMS_ITS | Encounter Summary ---
[place] [address] Care Team Providers Care Orthotic Fitter Name Role Phone Stephon, Maciej ORTIZ Primary Care Provider Reason for Visit * Reason Onset Date Comments Medication Refill 11/19/2016 Encounter Details Date Type Department Care Team (Late st Contact Info) Description 11/19/2016 [place] [address] Natalya Patel, RN Social History Tobacco Use Types Packs/Day [...] 3:30 PM EST Office Visit Dermatology at [address] [place] [phone] Prosper Schmidt MD [address] [facility], [address] [address] 12/14/2024 2:40 PM EST Office Visit Cardiology at [address] [place] [phone] Benjie Garrison MD [facility] [place] [address] documented as of this encounter Visit Diagnoses Not on filedocumented in this encounter Care Teams Orthotic Fitter Relationship Specialty Start Date End Date Maciej Szymanski DO [address] [place] [address] [address] [place] [address] PCP - General 09/18/10 09/30/22 documented as of this encounter
--- OUTSIDE RECORDS SUMMARY | 2024-10-08 00:39 | XMS_ITS | Encounter Summary ---
Author Organization [facility] Address [facility] [place] [address] Care Team Providers Care Glass Wool Blanket Machine Feeder Name Role Phone StephonMaciej hunter Primary Care Provider Encounter Details Date Type Department Care Team (Late st Contact Info) Description 02/28/2017 Refill Dermatology at [address] [phone] Daisy Keita LPN Social History [...] 3:30 PM EST Office Visit Dermatology at [address] [phone] Prosper Schmidt MD [address] [place] [address], [facility] DERMATOLOGY [place], [place] [phone] 12/14/2024 2:40 PM EST Office Visit Cardiology at [address] [phone] Benjie Garrison MD [facility] [place] [address] documented as of this encounter Visit Diagnoses Not on filedocumented in this encounter Care Teams Glass Wool Blanket Machine Feeder Relationship Specialty Start Date End Date Maciej Szymanski DO [address] [place] [address] PCP - General 09/18/10 09/30/22 documented as of this encounter
--- OUTSIDE RECORDS SUMMARY | 2024-10-08 00:39 | XMS_ITS | Encounter Summary ---
Author Organization [facility] [place] [address] Care Team Providers Care Geotechnician Name Role Phone Maciej Szymanski DO Primary Care Provider Reason for Visit * Reason Comments Follow-up Encounter Details Date Type Department Care Team (Late st Contact Info) Description 06/10/2014 4:00 PM EDT Office Visit Dermatology at [address] [place] [address] Prosper Schmidt MD [address] [place] [address] RD, [place] [address] Psoriasis (Primary Dx) Social History Tobacco Use Types Packs/Day Years [...] encounter Patient Instructions * Patient Instructions* Tanja Townsend, MELISSA - 06/10/2014 4:14 PM EDT Images from the original note were not included. [facility] Psoriasis: After Your Visit Your Care Instructions Psoriasis (say zzw-RY-dw-noble) is a long-term skin problem that causes [...] still damp. This seals in moisture. Use ddyq-gcl-hxeahak products that your doctor suggests. These may [...] more? Visit our health information library at [email or web address] Screening Technologyo You can also view health information on [employer], your personal patient account. Log in or sign up today. Enter U759 in the search box to learn more about Psoriasis: After Your Visit. ?? [id number] [employer]. Care instructions adapted under license by [facility]. This care instruction is for use with your licensed healthcare professional. If you have questions about a medical condition or this instruction, always ask your healthcare professional. Healthwise, [employer] disclaims any warranty or liability for your use of this information. Content Version: 9.9.629163; Last Revised: June 01, 2013 documented in this encounter Progress Notes * Prosper Schmidt MD - 06/10/2014 4:35 PM EDT Problem: Followup psoriasis. Ervin follows up and is doing reasonably well. His psoriasis, however, on his scalp is worsening, and the sample fluocinolone solution that I gave him really is not helping that. He has, however, not been applying it religiously. Physical examination reveals that on 50 mg of methotrexate, he continues to have patchy, micaceous scaling of psoriasis on the forehead at the hairline, extending back into the scalp, above his left ear in particular and a little bit on the occipital scalp with milder involvement above the right ear. His right flank is cleared. He is still getting some intermittent intertriginous involvement in the groin area, but nothing today. Assessment and Plan: Psoriasis. a. Continue methotrexate at current dosing of 50 mg p.o. each week; today the patient was given a prescription for #90 from [facility] in [facility] for a three-month supply with zero refills. Take six of the 2.5-mg tablets p.o. each week. b. Continue to take folate 1 mg p.o. daily every day except the day of the methotrexate dosing; he was given a one-year supply back in June 2013. c. He may continue to use triamcinolone cream b.i.d. p.r.n. for mild flares in the groin. d. The patient was given a prescription for clobetasol scalp solution to apply nightly to affected area on the scalp; 60 mL dispensed with three refills. e. He has not yet had his labs done but will get them in the next day or two at [facility]. f. Return to clinic in another three months for repeat check. COPY: Maciej Szymanski D.O. documented in this encounter Plan of Treatment Upcoming Encounters Date Type Department Care Team (Late [facility] Info) Description 11/08/2024 3:30 PM EST Office Visit Dermatology at [place] [address] [facility] [place] [address] Prosper Schmidt MD [address] [facility], [place] [address] 12/14/2024 2:40 PM EST Office Visit Cardiology at [address] [place] [address] Benjie Garrison MD [facility] [place] [address] documented as of this encounter Visit Diagnoses Diagnosis Psoriasis- Primary Other psoriasis documented in this encounter Care Teams Geotechnician Relationship Specialty Start Date End Date Maciej Szymanski DO [address] [facility] [place] [address] PCP - General 09/18/10 09/30/22 documented as of this encounter
--- OUTSIDE RECORDS SUMMARY | 2024-10-08 00:39 | XMS_ITS | Encounter Summary ---
Author Organization [facility] Address [facility] [place] [address] Care Team Providers Care Repair Weaver Name Role Phone Maciej Szymanski DO Primary Care Provider Reason for Visit * Reason Comments Diabetes Encounter Details Date Type Department Care Team (Late st Contact Info) Description 12/25/2016 3:30 PM EST Office [place] [address] [facility] [place] [address] Type 2 diabetes mellitus without complication, without [...] Sign Reading Time Taken Comments Blood Pressure 115/77 12/25/2016 3:27 PM EST Pulse 95 12/25/2016 3:27 PM EST Temperature - - Respiratory Rate - - Oxygen Saturation - - Inhaled Oxygen Concentration - - Weight 60.1 kg (132 lb 6.4 oz) 12/25/2016 3:27 P M EST Height 172.7 cm (5' 7.99) 12/25/2016 3:27 PM ES T Body Mass Index 20.14 12/25/2016 3:27 PM EST documented in this encounter Patient Instructions * Patient Instructions* [facility] New APRN - 12/25/2016 3:30 PM EST Annual dilated eye exam Continued good diabetes control!! Target glucose before meals between 80-130 as much as possible documented in this encounter Progress Notes * [facility] New APRN - 12/25/2016 3:30 PM EST REASON FOR VISIT: Follow up type 2 DM in continued good control. 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 He has stopped Lantus insulin and recently stopped Invokana. He also recently stopped glipizide, but he states he most likely needs to resume taking the glipizide because his glucose levels are elevated. DATE OF DIAGNOSIS OF DIABETES: 2008. DIABETES REGIMEN: Metformin 1000 mg twice a day, and he plans to resume the glipizide 5 mg 1-2 tablets before breakfast and before evening meal. [id number] MEAL PLAN: Breakfast is half a cup of oatmeal, walton, and cheese. Lunch is half a cup of nuts, amanda seed pudding, and cheese. Evening meal is half a pound of meat and vegetables. He will snack on fruit. PHYSICAL ACTIVITY: He is doing some strength training, trying to build his muscle. Would like to gain 15-20 pounds. PAST MEDICAL HISTORY: Huang's esophagus, psoriasis. REVIEW OF SYSTEMS: Depression and mood overall is doing well. Has had cataracts removed. Eyes: No recent vision changes. No recent headaches or chest pain or shortness of breath. Appetite is good. Sleep pattern is good. Extremities are good. PHYSICAL EXAM: Appearance: He appears in very good health. Pleasant, has good eye contact. Eyes: No retinopathy with green light exam. Neck: No thyromegaly or lymphadenopathy. Heart: Regular rate and rhythm. Lungs are clear to auscultation. Feet: Skin is normal. Pulses are normal. Neuro: Normal sensation to 10 G's of pressure. First nails are thick. Spine with scoliosis. IMPRESSION AND PLAN: DM type 2. States he has been advised by the elementary school art teacher that he may be able to get off all of his medicines for diabetes. MACHINE GUNNER explained the natural progression of type 2 diabetes. Reviewed his written blood glucose log. SBGM 3 times a day. Return to office in 6 months. Will check hemoglobin A1c, and if he is due for creatinine, DL/DL. This was a 35-minute office visit, with 34 minutes spent counseling yeoy-eh-qywc with patient in the management of glucose levels. The patient does have a supply of the canagliflozin, and he will resume that if glucose levels are elevated. Recent Results (from the past 72 hour(s)) Hemoglobin A1c Result Value Ref Range Hemoglobin A1C 7.5 (H) 4.3 - 5.6 % Est Avg Gluc 169 mg/dL Lipid panel (fasting) Result Value Ref Range Chol, Total 160 <=239 mg/dL Triglycerides 108 <=199 mg/dL HDL 52 >=40 mg/dL LDL Cholesterol 86 <=190 mg/dL Chol/HDL Ratio 3.1 ratio Lipid Interpretation See Note documented in this encounter Plan of Treatment Upcoming Encounters Date Type Department Care Team (Late st Contact Info) Description 11/08/2024 3:30 PM EST Office Visit Dermatology at [address] [phone] Prosper Schmidt MD [address] [place] [address], [facility] [address] 12/14/2024 2:40 PM EST Office Visit Cardiology at [address] [phone] Benjie Garrison MD [facility] [place] [address] documented as of this encounter Results * (ABNORMAL) Hemoglobin A1c (07/22/2017 12:31 PM EDT) Hemoglobin A1c 8.7(H) 4.3 - 5.6 % [facility] Comment: Reference Range: 4.3 [...] 1, S67-74 Estimated Average Glucose 203 mg/dL [facility] Comment: eAG equivalents for [...] into estimated average glucose values. ??Diabetes Care 2008:31(8):9286-3514. Blood specimen (specimen) 07/22/2017 12:31 PM EDT 07/22/2017 12:36 PM EDT Narrative Resulting Agency Comment Spec In Lab Bernardo Britton MD CHEMISTRY ORDERABLES Performing Organization Address City/[facility]/ZIP Co de Phone Number [facility] [place] [address] * (ABNORMAL) Creatinine (07/22/2017 12:31 PM EDT) Creatinine 1.33 0.80 - 1.50 mg/dL [facility] Comment: Please note that the pediatric reference intervals supplied above were not validated at [facility]. Results from pediatric patients should be interpreted in conjunction to the patient's age, height and muscle mass. Est Glomerular Filtration Rate 57(L) >=60 [facility] Comment: This estimated GFR (eGFR) [...] the following links into your internet browser. [email or web address] [email or web address] [email or web address] Blood specimen (specimen) 07/22/2017 12:31 PM EDT 07/22/2017 12:36 PM EDT Narrative Resulting Agency Comment Spec In Lab Bernardo Britton MD CHEMISTRY ORDERABLES Performing Organization Address [facility] Co de Phone Number [facility] [place] [address] * U Albumin/Cre Ratio (07/22/2017 12:28 PM EDT) Albumin / Creatinin Ratio, Urine Not Calculated 0 - 29 mcg/mg Cr [facility] Comment: Reference Ranges: <30 [...] 2, 357? 362 Albumin, Urine <3.0 mg/L [facility] Creatinine, Urine 76 mg/dL [facility] Urine specimen (specimen) 07/22/2017 12:28 PM EDT 07/22/2017 12:32 PM EDT Narrative Resulting Agency Comment Spec In Lab Bernardo Britton MD URINE ORDERABLES [facility] [place] [address] documented in this encounter Visit Diagnoses Diagnosis Type 2 diabetes mellitus without complication, without long-term current use of insulin documented in this encounter Care Teams Repair Weaver Relationship Specialty Start Date End Date Maciej Szymanski DO [address] [place] [address] PCP - General 09/18/10 09/30/22 documented as of this encounter
--- OUTSIDE RECORDS SUMMARY | 2024-10-08 00:39 | XMS_ITS | Encounter Summary ---
Author Organization [facility] [address] Care Team Providers Care Head Porter Name Role Phone Maciej Szymanski DO Primary Care Provider Encounter Details Date Type Department Care Team (Latest Contact Info) Description 01/29/2016 10:07 AM EDT - 01/29/2016 11:59 PM EDT Hospital Encounter [place] [phone] Iron deficiency anemia Discharge Disposition: Home Social History Tobacco Use [...] End Date fluticasone propionate (Flonase) 50 mcg/actuation [place], Suspension 1-2 sprays by Each Nare route daily as needed. 10/15/2015 metFORMIN (GLUCOPHAGE) 1,000 mg Tablet Take 1,000 [...] 2 times daily. 60 capsule 12 09/21/2012 canagliflozin 300 mg TabletIndications:Ty pe 2 diabetes mellitus without complication Take 300 mg by mouth daily. 30 tablet 11 11/22/2015 11/19/2016 meloxicam (MOBIC) 15 mg Tablet Take 15 mg by mouth daily. 0 11/17/2015 10/01/2022 glipiZIDE (GLUCOTROL) 5 mg Tablet Take 2 tablets by mouth 2 times daily (before meals). Take 2 tablets before evening meal when glucose is above 161 120 tablet 11 05/22/2015 05/21/2016 FREESTYLE LITE STRIPS Strip 1 each 3 times daily. 0 09/02/20142023 methotrexate 2.5 mg TabletIndications:Ps oriasis Take 6 tablets by mouth once a week. 6 tablet 0 11/11/2014 04/01/2016 triamcinolone (KENALOG) 0.1 % cream as needed. Reported on 12/25/2016 07/23/2013 09/27/2020 folic acid (FOLVITE) 1 mg tablet Take 1 mg by mouth daily. 02/28/2017 insulin glargine (LANTUS SOLOSTAR) pen injection Inject 10-17 Units subcutaneously 2 times daily. Reported on 12/25/2016 12/25/2016 documented as of this encounter Plan of Treatment Upcoming Encounters Date Type Department Care Team (Late st Contact Info) Description 11/08/2024 3:30 PM EST Office Visit Dermatology at [address] [phone] Prosper Schmidt MD [address] [place] [address], [facility] DERMATOLOG[facility] [place], [place] [id number] 12/14/2024 2:40 PM EST Office Visit Cardiology at [address] [phone] Benjie Garrison MD [facility] [place] [address] documented as of this encounter Procedures Procedure Name Priority Date/Time Associated Diagnosis Comments HEMOGRAM STAT 01/29/2016 10:26 AM EDT Iron deficiency anemia DIFFERENTIAL, AUTOMATED STAT 01/29/2016 10:26 AM EDT Iron deficiency anemia RETICULOCYTE COUNT STAT 01/29/2016 10 :26 AM EDT Iron deficiency anemia CBC (WITH DIFF) STAT 01/29/2016 10:26 AM EDT Iron deficiency anemia FERRITIN STAT 01/29/2016 10:26 AM EDT Iron deficiency anemia documented in this encounter Results * Differential, Automated (01/29/2016 10:26 AM EDT) Neutrophil % 69.8 % [facility] Neutrophil Absolute 5.06 1.50 - 6.30 x10(3)/[facility] Lymph % 19.0 % [facility] Lymphocytes Abs 1.4 1.0 - 3.6 x10(3)/[facility] Monocyte % 7.3 % [facility] Monocyte Abs 0.5 0.2 - 1.0 x10(3)/[facility] Eos % 3.4 % [facility] Eosinophils Abs 0.2 0.0 - 0.5 x10(3)/[facility] Basophil % 0.4 % [facility] Baso Absolute 0.0 0.0 - 0.2 x10(3)/[facility] Immature Gran % 0.10 % [facility] Comment: Immature granulocytes(IG's)percentage and absolute count will include metamyelocytes, myelocytes, and promyelocytes. Blood smears from CBCs yielding IG's will be scanned manually for concordance. If this scan disagrees with the automated IG or if promyelocytes are noted, a manual differential will be performed. Immature Gran Absolute 0.01 0.00 - 0.05 x10(3)/mcL [facility] Blood specimen (specimen) 01/29/2016 10:26 AM EDT 01/29/2016 10:41 AM EDT Narrative Resulting Agency Comment Spec In Lab Major Ibrahim MD HEMATOLOGY ORDERABLE S Performing Organization Address City/[facility]/ZIP Co de Phone Number [facility] [place] [address] * (ABNORMAL) Hemogram (01/29/2016 10:26 AM EDT) Pathologist [facility] White Blood Cell 7.3 4.0 - 10.0 x10(3)/[facility] Red Blood Cell 4.96 4.63 - 6.08 x10(6)/ L [facility] Hemoglobin 13.6(L) 13.7 - 17.5 gm/dL [facility] Hematocrit 41.8 40.0 - 51.0 % [facility] Mean Cell Volume 84.3 79.0 - 92.0 fL [facility] Mean Cell Hemoglobin 27.4 25.6 - 32.2 pg [facility] Mean Cell Hemoglobin Concentration 32.5 32.0 - 36.5 gm/dL [facility] Platelet 346 145 - 370 x10(3)/[facility] RDW Standard Deviation 56.6(H) 35.0 - 46.0 fL [facility] RDW coefficient of variation 18.5(H) 10.9 - 14.4 % [facility] Mean Platelet Volume 9.1 9.0 - 12.0 fL [facility] Blood specimen (specimen) 01/29/2016 10:26 AM EDT 01/29/2016 10:41 AM EDT Narrative Resulting Agency Comment Spec In Lab Major Ibrahim MD HEMATOLOGY ORDERABLE S Performing Organization Address City/[facility]/ZIP Co de Phone Number [facility] [place] [address] * Reticulocyte Count (01/29/2016 10:26 AM EDT) Reticulocyte % 1.1 0.5 - 2.4 % [facility] Retic Abs # 0.050 0.027 - 0.095 x10(6)/mcL [facility] Immature Retic% 4.6 2.3 - 15.9 % [facility] Reticulated Hgb 33.8 28.5 - 38.9 pg [facility] Immature Plt % 1.2 0.0 - 7.4 % [facility] Blood specimen (specimen) 01/29/2016 10:26 AM EDT 01/29/2016 10:41 AM EDT Narrative Resulting Agency Comment Spec In Lab Major Ibrahim MD HEMATOLOGY ORDERABLE S Performing Organization Address City/[facility]/ZIP Co de Phone Number [facility] [place] [address] * Ferritin (01/29/2016 10:26 AM EDT) Ferritin 185 30 - 400 ng/mL [facility] Comment: Pediatric reference ranges not verified at [facility], interpret with caution. Reference ranges for females greater than 50 years of age approach values for men, i.e., 30-400 ng/mL. Blood specimen (specimen) 01/29/2016 10:26 AM EDT 01/29/2016 10:41 AM EDT Narrative Resulting Agency Comment Spec In Lab Major Ibrahim MD CHEMISTRY ORDERABLES Performing Organization Address City/[facility]/ZIP Co de Phone Number [facility] [place] [address] documented in this encounter Visit Diagnoses Diagnosis Iron deficiency anemia Iron deficiency anemia, unspecified documented in this encounter Care Teams Head Porter Relationship Specialty Start Date End Date Maciej Szymanski DO [address] [place] [address] PCP - General 11/23/10 12/5/22 documented as of this encounter
--- OUTSIDE RECORDS SUMMARY | 2024-10-08 00:39 | XMS_ITS | Encounter Summary ---
Author Organization [facility] Address [facility] [place] [address] Care Team Providers Care Gear Repair Supervisor Name Role Phone Maciej Szymanski DO Primary Care Provider Reason for Visit * Reason Comments Diabetes Encounter Details Date Type Department Care Team (Late st Contact Info) Description 11/20/2015 2:00 PM EST Office [place] [phone] Bernardo Britton MD [facility] [place] [place] [address] Type 2 diabetes mellitus with hyperglycemia; Diabetes mellitus type 2, uncontrolled, without complications; Anemia due to other cause Social History Tobacco Use Types Packs/Day Years [...] Sign Reading Time Taken Comments Blood Pressure 128/84 11/20/2015 2:03 PM EST Pulse 108 11/20/2015 2:03 PM EST Temperature - - Respiratory Rate - - Oxygen Saturation - - Inhaled Oxygen Concentration - - Weight 63.7 kg (140 lb 6.4 oz) 11/20/2015 2:03 P M EST Height 172.7 cm (5' 8) 11/20/2015 2:03 PM EST Body Mass Index 21.35 11/20/2015 2:03 PM EST documented in this encounter Progress Notes * Bernardo Britton MD - 11/20/2015 2:13 PM EST Year of diagnosis: 2008 Regimen __x__ oral [...] _ASHWIN Taylor _ Zeeshan Rider MD _ Rajta Gonzales MD _ Luann Boone MD Justification for more than 3 tests a day ____ prevent severe hypoglycemia ____ prevent severe hyperglycemia ____ widely fluctuating blood sugars ____ overnight hypoglycemia Duration of need ___ lifetime until ___/___/___ From 04/2015 ([facility]) Will mail patient prescription for?? therapeutic shoes and inserts.?? Reviewed good ?? foot care and report if open area on left foot has redness or discharge or odor.?? Return to office in October.?? Will check hemoglobin A1c, reviewed blood glucose results from memory.?? Advised to lower Lantus dose by 1 to 2 units if fasting glucose levels are ?? under 90.?? We will need to increase glipizide glucose to twice daily when glucose levels are over 140 before breakfast and before evening meal.?? Reviewed prevention and treatment ?? of Hypoglycemia. Being followed by PCP for anemia/fe deficiency, and psoriaisi Dx of diabetes in 2008 by MD Started metformin, then added glipizide then added lantus. Has tried insulin alone, did not work well for him - FH of dm ( has had 4 sibilings) Therapeutic shoes have been very helpful Regimen Oral Metformin 1000 bid glipizide 5-10 bid Basal lantus 10 am/11 pm hbgm Bid occ under 100, 130-160, rarely the 200s Hypo Occasionally in am Diet B cereal Sn L fruit Sn D salads Sn Exercise On his feet to walk complications eyes none background prior laser therapy feet burning prior ulcer active ulcer kidneys none microalbuminuria CRF ESRD transplant autonomic: gastroparesis bladder hypo unaware tachycardia cardiac chest pain on exertion shortness of breath on 1 flight of stairs history of stent cabg chf PMH 1) barrets esophagus 2) psoriasis Your Medications These changes are accurate as of: 11/20/15 2:14 PM. If you have any questions, ask your nurse or doctor. Continued medications, unchanged Dose Details ferrous gluconate 324 mg (37.5 mg iron) Tab Take 324 mg by mouth 2 times daily. 324 mg Refills: 0 folic acid 1 mg Tab Commonly known as: FOLVITE Take 1 mg by mouth daily. 1 mg Refills: 0 freestyle lite strips Strp 1 each 2 times daily. Generic drug: blood sugar diagnostic strips 1 each Refills: 0 glipiZIDE 5 mg Tab Commonly known as: GLUCOTROL Take 2 tablets by mouth 2 times daily (before meals). Take 2 tablets before evening meal when glucose is above 161 10 mg Quantity: 120 tablet Refills: 11 LANTUS SOLOSTAR Inpn Inject 10-17 Units subcutaneously 2 times daily. 10 units in the morning, and 15 units at night Generic drug: insulin glargine 10-17 Units Refills: 0 loratadine 10 mg Tab Commonly known as: CLARITIN Take 10 mg by mouth daily. 10 mg Refills: 0 meloxicam 15 mg Tab Commonly known as: MOBIC Take 15 mg by mouth daily. 15 mg Refills: 0 metFORMIN 1,000 mg Tab Commonly known as: GLUCOPHAGE Take 1,000 mg by mouth 2 times daily. 1000 mg Refills: 0 methotrexate 2.5 mg Tab Take 6 tablets by mouth once a week. 15 mg Quantity: 6 tablet Refills: 0 NOVOFINE 32 32 gauge x 1/4 Ndle Inject 1 each subcutaneously 2 times daily. Generic drug: Insulin [place] (Disposable) 1 each Refills: 0 omeprazole 20 mg Cpdr Commonly known as: PriLOSEC Take 1 capsule by mouth 2 times daily. 20 mg Quantity: 60 capsule Refills: 12 triamcinolone 0.1 % Crea Commonly known as: KENALOG Refills: 0 VITAMIN C 250 mg Tab Take 250 mg by mouth 2 times daily. Generic drug: ascorbic acid 250 mg Refills: 0 STOPPED Medications multivitamin Tab Commonly known as: THERAGRAN Stopped by: Bernardo Britton MD FH No diabetes No early mi + prostate cancer , + thyroid SH - community integration service BP 128/84 mmHg Pulse 108 Ht 172.7 cm (5' 8) Wt 63.685 kg (140 lb 6.4 oz) BMI 21.35 kg/m2 appearance: wt Change Down 14 lbs in 2 years eyes: no retinopathy seen by green light ext: no pitting edema feet: shape is abnormal - flat skin is normal nails are mycotic pulses in feet : dorsalis pedis-yes posterior tibial-yes neuro: gait is normal appreciation of 10 g of pressure is present Ref. Range 12/27/2013 16:07 12/27/2013 16:11 11/21/2014 14:39 05/22/2015 10:16 Hemoglobin A1C Latest Ref Range: 4.3-5.6 % 8.2 (H) 8.0 (H) 8.5 (H) Recent Results (from the past 24 hour(s)) Hemoglobin A1c Result Value Ref Range Hemoglobin A1C 8.0 (H) 4.3 - 5.6 % Est Avg Gluc 183 mg/dL HDL/Cholesterol Profile Result Value Ref Range Chol, Total 139 <=199 mg/dL HDL 45 >=40 mg/dL Chol/HDL Ratio 3.1 ratio LDL Cholesterol, Direct Result Value Ref Range LDL Chol Direct 88 <=99 mg/dL Creatinine Result Value Ref Range Creatinine 1.10 0.80 - 1.50 mg/dL Estimated GFR >60 >=60 TSH Result Value Ref Range TSH 2.50 0.27 - 4.20 mcIU/mL Hemogram Result Value Ref Range WBC 8.4 4.0 - 10.0 x10(3)/mcL RBC 4.68 4.63 - 6.08 x10(6)/mcL Hemoglobin 11.1 (L) 13.7 - 17.5 gm/dL Hematocrit 35.5 (L) 40.0 - 51.0 % MCV 75.9 (L) 79.0 - 92.0 fL MCH 23.7 (L) 25.6 - 32.2 pg MCHC 31.3 (L) 32.0 - 36.5 gm/dL Platelets 462 (H) 145 - 370 x10(3)/mcL RDWSD 51.9 (H) 35.0 - 46.0 fL RDWCV 19.2 (H) 10.9 - 14.4 % MPV 9.2 9.0 - 12.0 fL 1) DM2 - Mr Chun has had poorly controlled diabetes though improved of late. Nonetheless the goafor him is an HA1c under 7 % as he is young and has no complications. I think we can get there bestby adding an SGPT2 agent and perhaps stopping his sulfonylurea. I will write to him about this and send the prescription . We discussed it at length 2) prevention - cholesterol is at target 3) anemia - he has a mild anemia . Chronic low level blood loss might reduce his HA1c some and makeit less passenger representative of his glucoses. documented in this encounter Plan of Treatment Upcoming Encounters Date Type Department Care Team (Late st Contact Info) Description 11/08/2024 3:30 PM EST Office Visit Dermatology at [address] [phone] Prosper Schmidt MD [address] [place] [address], [facility] [address] 12/14/2024 2:40 PM EST Office Visit Cardiology at [address] [phone] Benjie Garrison MD [facility] [place] [address] Scheduled Orders Name Type Priority Associated Diagnoses Orde r Schedule Hemoglobin A1c Lab STAT Type 2 diabetes mellitus with hyperglycemia Expected: 11/20/2015, Expires: 11/20/2016 documented as of this encounter Procedures Procedure Name Priority Date/Time Associated Diagnosis Comments HEMOGRAM Routine 11/20/2015 2:57 PM EST Type 2 diabetes mellitus with hyperglycemia CREATININE Routine 11/20/2015 2:57 PM EST Type 2 diabetes mellitus with hyperglycemia TSH Routine 11/20/2015 2:57 PM EST Type 2 diabetes mellitus with hyperglycemia LDL CHOLESTEROL, DIRECT Routine 11/20/2015 2:57 PM EST Diabetes mellitus type 2, uncontrolled, without complications HDL/CHOL PROFILE Routine 11/20/2015 2:57 PM EST Diabetes mellitus type 2, uncontrolled, without complications HEMOGLOBIN A1C Routine 11/20/2015 2:57 PM EST Diabetes mellitus type 2, uncontrolled, without complications documented in this encounter Results * (ABNORMAL) Creatinine (02/19/2016 2:32 PM EDT) Creatinine 1.30 0.80 - 1.50 mg/dL [facility] Comment: Please note that the pediatric reference intervals supplied above were not validated at [facility]. Results from pediatric patients should be interpreted in conjunction to the patient's age, height and muscle mass. Est Glomerular Filtration Rate 59(L) >=60 [facility] Comment: This estimated GFR [...] the following links into your internet browser. [email or web address] Blood specimen (specimen) 02/19/2016 2:32 PM EDT 02/19/2016 2:53 PM EDT Narrative Resulting Agency Comment Spec In Lab Bernardo Britton MD CHEMISTRY ORDERABLES [facility] [place] [address] * (ABNORMAL) Hemoglobin A1c (02/19/2016 2:32 PM EDT) Hemoglobin A1c 7.1(H) 4.3 - 5.6 % [facility] Comment: Reference Range: 4.3 [...] Mellitus, Diabetes Care 2013; 36: Suppl. 1, E90-19 Estimated Average Glucose 157 mg/dL [facility] Comment: eAG equivalents for HbA1c percentages: HbA1c(%) ?eAG(mg/dL) 6.0 ?126 6.5 ?140 7.0 ?154 7.5 ?169 8.0 ?183 8.5 ?197 9.0 ?212 9.5 ?226 10.0 ? 240 Limitations: The eAG calculation has not been validated on women, individuals below 18 years old and above 70 years old, and individuals with hemoglobinopathies. Additional resources are available on the ADA website: [email or web address] Jon MURPHY, Carol J, Tino R, et al. ??Translating the A1C assay into estimated average glucose values. ??Diabetes Care 2008:31(8):3660-5535. Blood specimen (specimen) 02/19/2016 2:32 PM EDT 02/19/2016 2:53 PM EDT Narrative Resulting Agency Comment Spec In Lab Bernardo Britton MD CHEMISTRY ORDERABLES [facility] [place] [address] * LDL Cholesterol, Direct (11/20/2015 2:57 PM EST) LDL Cholesterol, Direct 88 <=99 mg/dL [facility] Comment: The National Cholesterol Education Program (NCEP) has set the following guidelines for LDL Cholesterol: Reference range: ?? Optimal: ?<100 mg/dL ?? Near Optimal/Above Optimal: ?? 100-129 mg/dL ?? Borderline high: ?130-159 mg/dL ?? High: ? 160-189 mg/dL ?? Very high: ?>xy=530 mg/dL HERMINIO 2001: 285(10):7041-9904 Blood specimen (specimen) 11/20/2015 2:57 PM EST 11/20/2015 3:07 PM EST Narrative Resulting Agency Comment Spec In Lab Bernardo Britton MD CHEMISTRY ORDERABLES [facility] * HDL/Cholesterol Profile (11/20/2015 2:57 PM EST) Cholesterol, Total 139 <=199 mg/dL [facility] Comment: Recommendations of the NCEP Adult Treatment Panel for the following risk cutoff thresholds for the [place] population: Desirable: <200 mg/dL Borderline High: 200-239 mg/dL High: > or = 240 mg/dL HDL Cholesterol 45 >=40 mg/dL [facility] Comment: Reference range: ??Low HDL: ?? < 40 mg/dL ??Normal: ?40-60 mg/dL ??Desirable: > 60 mg/dL HERMINIO 2001; 285(19):2510-5275 Cholesterol/HDL Ratio 3.1 ratio [facility] Comment: A Cholesterol to HDL ratio below 4:1 is desirable. ??Studies suggest that increased CAD risk occurs at ratios above 5 for females and above 6 for men. ? [place] Heart Association ??(http://www.americanheart.org) ? Tanja Int Med, 1994; 121:641 ? AM J Med, 1998; 105(1A):48S Blood specimen (specimen) 11/20/2015 2:57 PM EST 11/20/2015 3:07 PM EST Narrative Resulting Agency Comment Spec In Lab Bernardo Britton MD CHEMISTRY ORDERABLES [facility] * (ABNORMAL) Hemoglobin A1c (11/20/2015 2:57 PM EST) Hemoglobin A1c 8.0(H) 4.3 - 5.6 % [facility] Comment: Reference Range: 4.3 - 5.6% 5.7 [...] Mellitus, Diabetes Care 2013; 36: Suppl. 1, P75-50 Estimated Average Glucose 183 mg/dL [facility] Comment: eAG equivalents for HbA1c percentages: HbA1c(%) ?eAG(mg/dL) 6.0 ?126 6.5 ?140 7.0 ?154 7.5 ?169 8.0 ?183 8.5 ?197 9.0 ?212 9.5 ?226 10.0 ? 240 Limitations: The eAG calculation has not been validated on women, individuals below 18 years old and above 70 years old, and individuals with hemoglobinopathies. Additional resources are available on the ADA website: [email or web address].Behind [email or web address]/[email or web address] Jon MURPHY, Carol J, Tino R, et al. ??Translating the A1C assay into estimated average glucose values. ??Diabetes Care 2008:31(8):6212-2149. Blood specimen (specimen) 11/20/2015 2:57 PM EST 11/20/2015 3:08 PM EST Narrative Resulting Agency Comment Spec In Lab Bernardo Britton MD CHEMISTRY ORDERABLES [facility] * (ABNORMAL) Hemogram (11/20/2015 2:57 PM EST) White Blood Cell 8.4 4.0 - 10.0 x10(3)/mc L [facility] Red Blood Cell 4.68 4.63 - 6.08 x10(6)/mc L [facility] Hemoglobin 11.1(L) 13.7 - 17.5 gm/dL [facility] Hematocrit 35.5(L) 40.0 - 51.0 % [facility] Mean Cell Volume 75.9(L) 79.0 - 92.0 fL [facility] Mean Cell Hemoglobin 23.7(L) 25.6 - 32.2 pg [facility] Mean Cell Hemoglobin Concentration 31.3(L) 32.0 - 36.5 gm/dL [facility] Platelet 462(H) 145 - 370 x10(3)/mc L [facility] RDW Standard Deviation 51.9(H) 35.0 - 46.0 fL [facility] RDW coefficient of variation 19.2(H) 10.9 - 14.4 % [facility] Mean Platelet Volume 9.2 9.0 - 12.0 fL [facility] Blood specimen (specimen) 11/20/2015 2:57 PM EST 11/20/2015 3:08 PM EST Narrative Resulting Agency Comment Spec In Lab Bernardo Britton MD HEMATOLOGY ORDERABLE S Performing Organization Address [facility] Co de Phone Number [facility] * TSH (11/20/2015 2:57 PM EST) Thyroid Stimulating Hormone 2.50 0.27 - 4.20 mcIU/mL [facility] Blood specimen (specimen) 11/20/2015 2:57 PM EST 11/20/2015 3:07 PM EST Narrative Resulting Agency Comment Spec In Lab Bernardo Britton MD CHEMISTRY ORDERABLES Performing Organization Address [facility] de Phone Number [facility] * Creatinine (11/20/2015 2:57 PM EST) Creatinine 1.10 0.80 - 1.50 mg/dL [facility] Comment: Please note that the pediatric reference intervals supplied above were not validated at [facility]. Results from pediatric patients should be interpreted in conjunction to the patient's age, height and muscle mass. Est Glomerular Filtration Rate >60 >=60 [facility] Comment: This estimated GFR (eGFR) value was [...] the following links into your internet browser. [email or web address] Blood specimen (specimen) 11/20/2015 2:57 PM EST 11/20/2015 3:07 PM EST Narrative Resulting Agency Comment Spec In Lab Bernardo Britton MD CHEMISTRY ORDERABLES [facility] documented in this encounter Visit Diagnoses Diagnosis Type 2 diabetes mellitus with hyperglycemia Type II or unspecified type diabetes mellitus without mention of complication, not stated as uncontrolled Diabetes mellitus type 2, uncontrolled, without complications Anemia due to other cause documented in this encounter Care Teams Gear Repair Supervisor Relationship Specialty Start Date End Date Maciej Szymanski DO [address] [place] [address] [address] [facility] [address] [place] [address] PCP - General 09/18/10 09/30/22 documented as of this encounter
--- OUTSIDE RECORDS SUMMARY | 2024-10-08 00:39 | XMS_ITS | Encounter Summary ---
Author Organization [facility] Address [facility] [place] [address] Care Team Providers Care Hand Knitter Name Role Phone Maciej Szymanski DO Primary Care Provider Encounter Details Date Type Department Care Team (Late st Contact Info) Description 12/05/2015 Orders Only Hematology [place] [address] Major Ibrahim MD [facility] [address] [place] [address] Social History Tobacco Use Types Packs/Day Years [...] as of this encounter Progress Notes * Major Ibrahim MD - 12/05/2015 10:36 AM EST Chemotherapy Admission/Infusion Order Form [facility] Name: Ervin Helms : 1965 Any order prececded by a box must be checked to enable the order. Date/Time Written: 12/05/2015, 10:36 AM Start Date: Week of 12/11/15 1. Diagnosis: Iron deficiency anemia 2. Condition: fair 3. Diet as Didi: 4. Activity as Didi 5. VS Routine 6. May insert 2 lines PRN 7. Record I/O: []yes []no 8. Diabetic: []yes []no 9. Inpatient diagnostic tests/Labs: 10. Supportive medications: Venofer 300 mg IV q week x 3 weeks (Observe pt for 30 min after infusion completes) documented in this encounter Plan of Treatment Upcoming Encounters Date Type Department Care Team (Late st Contact Info) Description 11/08/2024 3:30 PM EST Office Visit Dermatology at [address] [phone] Prosper Schmidt MD [address] [facility], [facility] DERMATOLOGY [place], [place] [id number] 12/14/2024 2:40 PM EST Office Visit Cardiology at [address] [phone] Benjie Garrison MD [facility] [place] [address] documented as of this encounter Visit Diagnoses Not on filedocumented in this encounter Care Teams Hand Knitter Relationship Specialty Start Date End Date Maciej Szymanski DO [address] [facility] 1 [place] [address] PCP - General 09/18/10 09/30/22 documented as of this encounter
--- OUTSIDE RECORDS SUMMARY | 2024-10-08 00:39 | XMS_ITS | Encounter Summary ---
Author Organization [facility] Address [facility] Cynthia [place] [address] Care Team Providers Care Track Manager Name Role Phone Maciej Szymanski DO Primary Care Provider Reason for Visit * Reason Comments Follow-up Encounter Details Date Type Department Care Team (Late st Contact Info) Description 01/29/2016 11:15 AM EDT Office Visit [place] [address] Major Ibrahim MD [facility] [address] [place] [address] Mirna Hancock, PETRA [facility] [address] [place] [address] Renetta Espinosa MD [facility] HEMATOLGY/[place] [address] Iron deficiency anemia due to chronic blood loss; Iron deficiency anemia due to chronic blood loss [D50.0] Social History Tobacco Use Types Packs/Day Years [...] Sign Reading Time Taken Comments Blood Pressure 131/78 01/29/2016 11:12 AM EDT Pulse 97 01/29/2016 11:12 AM EDT Temperature 36.5 ??C (97.7 ??F) 01/29/2016 1 1:12 AM EDT Respiratory Rate 18 01/29/2016 11:1 2 AM EDT Oxygen Saturation 98% 01/29/2016 11: 12 AM EDT Inhaled Oxygen Concentration - - Weight 63.4 kg (139 lb 12.8 oz) 016 11:12 AM EDT Height 172.7 cm (5' 7.99) 01/29/2016 1 1:12 AM EDT Body Mass Index 21.26 01/29/2016 11:12 AM EDT documented in this encounter Progress Notes * Mirna Hancock, DIRECTOR [employer] - 01/29/2016 11:10 AM EDT Subjective: Patient ID: Ervin Helms is a 50 y.o. male here for f/u of ARLETH Patient Active Problem List Diagnosis ??? Anemia, iron deficiency Negative GI work-up. History of Huang's esophagitis- months o f oral iron with minimal improvement. IV VENOFER 12/12 with good results ??? Visit for suture removal ??? Epidermal cyst ??? Type II or unspecified type diabetes mellitus without mention of complication, uncontrolled ??? GERD (gastroesophageal reflux disease) ??? Verruca vulgaris ??? Psoriasis HPI Ervin is doing quite well - he is still tired at times - he is better than he was before the infusions. He tolerated his iron infusions well. Denies any s/sx bleeding. He has had no GI symptoms -taking daily omeprazole. He does take daily NSIAD. Also continues on dialy Weekly MTX. Denies any other changes in status Review of Systems Objective: Physical Exam Constitutional: He is oriented to person, place, and time. He appears well- developed and well-nourished. No distress. Eyes: Conjunctivae are normal. Pulmonary/Chest: Effort normal. Musculoskeletal: Normal range of motion. He exhibits no edema. Neurological: He is alert and oriented to person, place, and time. Skin: Skin is warm and dry. Psychiatric: He has a normal mood and affect. Recent Results (from the past 72 hour(s)) Ferritin Result Value Ref Range Ferritin 185 30 - 400 ng/mL Reticulocyte Count Result Value Ref Range Retic Ct % 1.1 0.5 - 2.4 % Retic Ct Abs 0.050 0.027 - 0.095 x10(6)/mcL Immature Retic% 4.6 2.3 - 15.9 % Reticulated Hgb 33.8 28.5 - 38.9 pg Plat Immature % 1.2 0.0 - 7.4 % Hemogram Result Value Ref Range WBC 7.3 4.0 - 10.0 x10(3)/mcL RBC 4.96 4.63 - 6.08 x10(6)/mcL Hemoglobin 13.6 (L) 13.7 - 17.5 gm/dL Hematocrit 41.8 40.0 - 51.0 % MCV 84.3 79.0 - 92.0 fL MCH 27.4 25.6 - 32.2 pg MCHC 32.5 32.0 - 36.5 gm/dL Platelets 346 145 - 370 x10(3)/mcL RDWSD 56.6 (H) 35.0 - 46.0 fL RDWCV 18.5 (H) 10.9 - 14.4 % MPV 9.1 9.0 - 12.0 fL Differential, Automated Result Value Ref Range Neutrophils % 69.8 % Neutr Abs (ANC) 5.06 1.50 - 6.30 x10(3)/mcL Lymphocytes % 19.0 % Lymphocytes Abs 1.4 1.0 - 3.6 x10(3)/mcL Monocytes % 7.3 % Monocyte Abs 0.5 0.2 - 1.0 x10(3)/mcL Eosinophils % 3.4 % Eosinophils Abs 0.2 0.0 - 0.5 x10(3)/mcL Basophils % 0.4 % Basophils Abs 0.0 0.0 - 0.2 x10(3)/mcL Immature Gran % 0.10 % Dahiana Gran Abs 0.01 0.00 - 0.05 x10(3)/mcL BP 131/78 mmHg Pulse 97 Temp(Src) 36.5 ??C (97.7 ??F) (Temporal) Resp 18 Ht 172.7 cm (5' 7.99) Wt 63.413 kg (139 lb 12.8 oz) BMI 21.26 kg/m2 SpO2 98% Assessment and Plan: 1. ARLETH - no source identified, did not respond to oral iron. Tolerated IV iron very well with nice response - normalization of reticulated hemoglobin, MCV and ferritin. At this point we suggest monitoring for ongoing occult losses. He prefers to have this done locally. We would recommend CBC, reticand ferritin Q3- 4 months for the next 1-2 years. If he does again become iron deficient would consider capsule study. We will discharge Ervin from hematology at this time, however we are happy to see him back at any time for further iron deficiency or any other hematologic problem. IT has been a pleasure to participate in his care and remain available in the future as needed. documented in this encounter Plan of Treatment Upcoming Encounters Date Type Department Care Team (Late st Contact Info) Description 11/08/2024 3:30 PM EST Office Visit Dermatology at [address] [phone] Prosper Schmidt MD [address] [place] [address], [facility] [place] [address] 12/14/2024 2:40 PM EST Office Visit Cardiology at [address] [phone] Benjie Garrison MD [facility] [place] [address] documented as of this encounter Visit Diagnoses Diagnosis Iron deficiency anemia due to chronic blood loss [D50.0] Iron deficiency anemia secondary to blood loss (chronic) documented in this encounter Care Teams Track Manager Relationship Specialty Start Date End Date Maciej Szymanski DO [address] [address] [place] [address] PCP - General 09/18/10 09/30/22 documented as of this encounter
--- OUTSIDE RECORDS SUMMARY | 2024-10-08 00:40 | XMS_ITS | Encounter Summary ---
Author Organization [facility] Address [address] [place] [address] Care Team Providers Care Meat Washer Name Role Phone Unknown, Provider Primary Care Provider Unava ilable Encounter Details Date Type Department Care Team (Late st Contact Info) Description 08/09/2015 Results Only [facility] [phone] Joseph Matthews MD [address] [place] [address] Social History Tobacco Use Types Packs/Day Years Used Date Smoking Tobacco: Never Assessed Sex and Gender Information Value Date Recorded Sex Assigned at Not on file Legal Sex Male 18:17 EST Gender Identity Not on file Sexual Orientation Not on file documented as of this encounter Plan of Treatment Not on file documented as of this encounter Procedures Procedure Name Priority Date/Time Associated Diagnosis Comments SURGICAL PATHOLOGY Routine 08/09/2015 17 :51 EDT documented in this encounter Results * SURGICAL PATHOLOGY (08/09/2015 17:51 EDT) Pathology Report: SURGICAL PATHOLOGY REPORT Reports generated via electronic interface contain original data; however they are lacking the format of the original report. Caution should be taken when reading/interpret ing unformatted reports. Name: ? ERVIN HELMS ? Accession #: ? [id number] ? : ? 1965 (Age: 49) ??M ? Collect Date: ? 08/09/2015 ? Location: ? [facility] ? Receive Date: ? 08/09/2015 ? Provider: JOSEPH MATTHEWS MD Copy to: CHRISTOPHER MILIAN DO ? Final Pathologic Diagnosis: GASTROESOPHAGEAL JUNCTION, BIOPSY: - ??Intestinal metaplasia in a background of active erosive reflux esophagitis. - ??Negative for dysplasia. Document reviewed and electronically signed by: RETA AMIN MD Report ??Date: 08/11/2015 12:32 By the signature above, the attending physician certifies that he/she has personally conducted a gross and/or microscopic examination of the described specimens and rendered or confirmed the above diagnosis. Specimen(s) Received: Bx GE junction Clinical History: Anemia, h/o Huang's esophagus Gross Description: ? Received in formalin labelled with proper patient identification (initials A, P) and bx GE junction are four crawford-white tissues (0.2 x 0.1 x less than 0.1 cm to 0.7 x 0.2 x 0.1 cm). Entirely submitted in 1 and 2. Kika Zavala 08/10/2015 8:13 AM End of Report [facility] 08/09/2015 17:5 1 EDT 08/09/2015 17:51 EDT us Joseph Matthews MD PATHOLOGY ORDERABLES Fin al Result [facility] [address] [place] [address] documented in this encounter Visit Diagnoses Not on filedocumented in this encounter Care Teams Meat Washer Relationship Specialty Start Date End Date Unknown, Provider, PCP - General 02/25/11 08/13/15 documented as of this encounter
--- OUTSIDE RECORDS SUMMARY | 2024-10-08 00:40 | XMS_ITS | Encounter Summary ---
Author Organization [facility] Address [address] [place] [address] Care Team Providers Care Supervisor Ovens Name Role Phone Gus Ponce MD Primary Care Provider Encounter Details Date Type Department Care Team (Late st Contact Info) Description 03/27/2022 Lab Requisition [facility] Pathology & Laboratory Medicine - [address] [phone] Outr Resulting Lab, Provider Social History Tobacco Use Types Packs/Day Years [...] Procedure Name Priority Date/Time Associated Diagnosis Comments HEPATITIS C AB W REFLEX TO HCV RNA BY PCR Routine 03/27/2022 8:47 EDT PSA TOTAL, DIAGNOSTIC Routine 03/27/2022 8:47 EDT documented in this encounter Results * PSA TOTAL, DIAGNOSTIC (03/27/2022 8:47 EDT) PSA 1.3 <=3.5 ng/mL 03/27/2022 22:12 EDT [facility] Blood VENOUS BLOOD / Unknown 03/27/2022 8:47 EDT 03/27/2022 21:11 EDT Narrative [facility] - 03/27/2022 22:12 EDT NOTE: Serum PSA concentration should not be interpreted as absolute evidence for the presence or absence of malignant disease. Assayed on Siemens ADVIA [employer] Solutionaur XPT using chemiluminescent technology.??Values obtained by using different assay methods cannot be used interchangeably. us Provider Outr Resulting Lab CHEMISTRY & BLOOD GA S ORDERABLES Final Result Performing Organization Address City/[facility]/ZIP Co de Phone Number [facility] [address] [place] [address] * HEPATITIS C AB W REFLEX TO HCV RNA BY PCR (03/27/2022 8:47 EDT) Hep C Antibody Negative Negative 03/28/2022 10:56 EDT [facility] Blood VENOUS BLOOD / Unknown 03/27/2022 8:47 EDT 03/27/2022 21:11 EDT us Provider Outr Resulting Lab CHEMISTRY & BLOOD GA S ORDERABLES Final Result Performing Organization Address [facility] Co de Phone Number [facility] [address] [place] [address] documented in this encounter Visit Diagnoses Not on filedocumented in this encounter Care Teams Supervisor Ovens Relationship Specialty Start Date End Date Gus Ponce MD [address] [place] [address] PCP - General Family Medicine - Primary Care 11/27/21 07/28/22 documented as of this encounter
--- OUTSIDE RECORDS SUMMARY | 2024-10-08 00:40 | XMS_ITS | Encounter Summary ---
Author Organization [facility] Address [address] [place] [address] Care Team Providers Care Cell Assembly Pinner Name Role Phone Gus Ponce MD Primary Care Provider Encounter Details Date Type Department Care Team (Late st Contact Info) Description 03/27/2022 Lab Requisition [facility] Pathology & Laboratory Medicine - [facility] [address] [place], [place] [address] Outr Resulting Lab, Provider Social History Tobacco [...] Procedure Name Priority Date/Time Associated Diagnosis Comments HIV 1/2 ANTIGEN AND ANTIBODY, 4TH GENERATION Routine 03/27/2022 8:47 EDT documented in this encounter Results * HIV 1/2 ANTIGEN AND ANTIBODY, 4TH GENERATION (03/27/2022 8:47 EDT) HIV 1 and 2 Antibody/p24 Antigen, 4th Generation Negative Negative 03/28/2022 10:59 EDT [facility] Comment:If acute HIV-1 infec tion is suspected in a high risk patient, submit plasma specimen for HIV-1 RNA quantitation test. Blood VENOUS BLOOD / Unknown 03/27/2022 8:47 EDT 03/27/2022 21:11 EDT Narrative [facility] - 03/28/2022 10:59 EDT Fourth Generation assay performed on the Siemens Centaur XPT. us Provider Outr Resulting Lab IMMUNOLOGY AND SEROL OGY ORDERABLES Final Result [facility] [address] [place] [address] documented in this encounter Visit Diagnoses Not on filedocumented in this encounter Care Teams Cell Assembly Pinner Relationship Specialty Start Date End Date Gus Ponce MD [address] [place] [address] PCP - General Family Medicine - Primary Care 11/27/21 07/28/22 documented as of this encounter
--- OUTSIDE RECORDS SUMMARY | 2024-10-08 00:40 | XMS_ITS | Encounter Summary ---
Author Organization [facility] [place] [address] Care Team Providers Care Electromechanical Technician Name Role Phone Maciej Szymanski DO Primary Care Provider Reason for Visit * Reason Comments Follow-up Encounter Details Date Type Department Care Team (Late st Contact Info) Description 07/09/2013 4:30 PM EDT Office Visit Dermatology [address] [facility] [address] [place] [address] Prosper Schmidt MD [address] [place] [address], [facility] [place] [address] Psoriasis (Primary Dx); Verruca vulgaris Social History Tobacco Use Types Packs/Day Years Used Date Smoking Tobacco: Never Alcohol Use Standard Drinks/Week Comments No 0 (1 standard drink = 0.6 oz pur e alcohol) Sex and Gender Information Value Date Recorded Sex Assigned at Not on file Gender Identity Not on file Sexual Orientation Not on file documented as of this encounter Progress Notes * Prosper Schmidt MD - 07/09/2013 5:10 PM EDT Problem is followup varicose veins and psoriasis. Ervin follows up and still has a little bit of a wart present on the left third finger. His psoriasis is improving back on methotrexate, although he only was able to restart it about a month ago, as his insurance had not until recently kicked in again. Physical examination reveals verruca vulgaris still present on the left third finger laterally. His psoriasis is much better in the scalp but still has some micaceous scaling and erythema there and patches on the stomach and back. They are thinning and are no longer as hyperkeratotic as they were. Assessment and Plan: 1. Psoriasis, improving on methotrexate. a. Continue methotrexate taking six of the 2.5 mg tablets p.o. q.week for 15 mg total. Patient has a one month supply with two refills, and he just barely filled, from our last visit. b. Continue also taking folate 1 mg every day except for day of the methotrexate dosing. He was given 90 for a three month supply with three refills on April 02. c. Return to clinic in another three months for repeat check. Check methotrexate labs at that time. 2. Verruca vulgaris, left third finger. a. LN2 times three applied to this site. b. Return to clinic in two weeks for repeat check. May cancel if doing well. COPY: Maciej Szymanski D.O. documented in this encounter Plan of Treatment Upcoming Encounters Date Type Department Care Team (Late st Contact Info) Description 11/08/2024 3:30 PM EST Office Visit Dermatology at [address] [phone] Prosper Schmidt MD [address] [place] [address], [facility] [place] [address] 12/14/2024 2:40 PM EST Office Visit Cardiology at [address] [phone] Benjie Garrison MD [facility] [place] [address] documented as of this encounter Visit Diagnoses Diagnosis Psoriasis- Primary Other psoriasis Verruca vulgaris Viral warts, unspecified documented in this encounter Care Teams Electromechanical Technician Relationship Specialty Start Date End Date Maciej Szymanski DO [address] [place] [address] [address] PCP - General 09/18/10 09/30/22 documented as of this encounter
--- OUTSIDE RECORDS SUMMARY | 2024-10-08 00:40 | XMS_ITS | Encounter Summary ---
Author Organization [facility] Address [facility] [place] [address] Care Team Providers Care University Teacher Name Role Phone Maciej Szymanski DO Primary Care Provider [phone] Reason for Visit * Reason Comments Diabetes Encounter Details Date Type Department Care Team (Late st Contact Info) Description 12/27/2013 4:00 PM EST Office Visit [place] [address] [facility] [address] [facility] [place] [address] Type II or unspecified type diabetes mellitus without mention of complication, uncontrolled (Primary Dx) Discharge Disposition: Home Social History Tobacco Use [...] Sign Reading Time Taken Comments Blood Pressure 119/80 12/27/2013 4:43 PM EST Pulse 91 12/27/2013 4:43 PM EST Temperature - - Respiratory Rate - - Oxygen Saturation - - Inhaled Oxygen Concentration - - Weight 70.9 kg (156 lb 3.2 oz) 12/27/2013 4:43 PM EST Pt kept shoes on Height - - Body Mass Index - - documented in this encounter Patient Instructions * Patient Instructions* Marisela Emmanuel, RN - 12/27/2013 4:48 PM EST I would like you to sign up for myD-H, which will give you secure online access to your electronic medical record at [facility] and the ability to communicate with your health care team whenand where it???s most convenient for you. With myD-H you will be able to: - look at parts of your medical record including test results and office notes - send and receive messages to/from me and your other providers - renew prescriptions - schedule appointments. To sign up, go to [email or web address] and click I have an activation code and follow the instructions. Here is your activation code: [email or web address] Expires: 02/10/2014 4:49 PM Remember, myD-H is NOT for urgent needs! Always dial 911 for medical emergencies. Lower lantus dose to 15 units to get fasting glucose in AM between 90-130. Okay to lower dose again(to 13 units) if fasting glucose is under 90 documented in this encounter Progress Notes * Umu New APRN - 12/27/2013 5:17 PM EST REASON FOR VISIT: Followup type 2 Dm in fair overall control. BRIEF HISTORY: Presents and states he has been having some glucose levels in the 60's. DIABETES REGIMEN: Lantus SoloSTAR pen 17 units in p.m., metformin 1000 mg twice a day, and glipizide 5 mg before evening meal. DATE OF DIAGNOSIS OF DIABETES: 2009. PAST MEDICAL HISTORY: spinal surgery for scoliosis. COMPLICATIONS: None. REVIEW OF SYSTEMS: Depression and mood: Overall, he is doing well. Eyes: No recent vision changes. No recent headaches or chest pain or shortness of breath. No recent GI symptoms. Appetite is very good. Sleep pattern is good. Skin: Followed by civil engineer for psoriasis. Extremities: Has some joint pains. 24-HOUR MEAL PLAN: Breakfast was cereal. Lunch was at the [employer] [place]. Had baked beans, chicken with stuffing, one hot dog, vegetables, and dessert was apple pie and ice cream. Evening meal varies. 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 PHYSICAL EXAMINATION: Appearance: He appears in good health. Scapula protruberence is obvious. Blood pressure 119/80 and weight 156 pounds. Eyes: No retinopathy by green light exam. Neck: No thyromegaly or lymphadenopathy. Heart: Regular rate and rhythm. No murmurs. Lungs are clear to auscultation. Feet: Skin is normal. Pulses are normal. Neuro: Normal sensation to 10 g of pressure. SBGM: Two times a day. DX CODE: 250.02. Reviewed detailed blood glucose log. IMPRESSION AND PLAN: Diabetes mellitus type 2 in fair control with some hypoglycemia. Lower Lantus dose to 15 units q.p.m. If fasting glucose is under 90, lower again by 2 units. Continue metformin of 1000 mg twice a day. prescription sent and continue glipizide 5 mg before evening meal, prescription sent. Will consider adding sitagliptin at next office visit if hemoglobin A1c is not closer to 7.5%. Also, the patient states he plans to be more careful with his meal plan and portions. Blood pressure is at goal. Has appointment scheduled with PCP soon. Return to endocrinology in March. Will check hemoglobin A1c, HDL, VLDL, microalbumin, and CMP. This was a 29-minute office visit with 28 minutes spent counseling face to face with the patient in the management of glucose levels, lowering Lantus dose, reviewing his hemoglobin A1c result, blood pressure targets, and cholesterol targets. Recent Results (from the past 72 hour(s)) COMPREHENSIVE METABOLIC PANEL (NON-FASTING) Component Value Range Glucose Lvl 211 (*) 60 - 199 mg/dL BUN 19 10 - 20 mg/dL Creatinine 1.08 0.80 - 1.50 mg/dL Sodium 137 135 - 145 mmol/L Potassium 4.5 3.5 - 5.0 mmol/L Chloride 99 98 - 107 mmol/L CO2 26 22 - 31 mmol/L Anion Gap 12 5 - 15 mmol/L Calcium 9.8 8.5 - 10.5 mg/dL Total Protein 7.4 6.4 - 8.3 gm/dL Albumin 4.6 3.2 - 5.2 gm/dL AST 16 0 - 39 unit/L ALT 16 0 - 55 unit/L Alk Phos 123 (*) 40 - 120 unit/L Total Bilirubin 0.2 0.2 - 1.3 mg/dL Bili, Direct 0.1 0.0 - 0.3 mg/dL Estimated GFR >60 >=60 HEMOGLOBIN A1C Component Value Range Hemoglobin A1C 8.2 (*) <=5.6 % Est Avg Gluc 189 TSH Component Value Range TSH 3.73 0.27 - 4.20 mcIU/mL HDL/CHOL PROFILE Component Value Range Chol, Total 141 <=199 mg/dL HDL 49 >=40 mg/dL Chol/HDL Ratio 2.9 LDL CHOLESTEROL, DIRECT Component Value Range LDL Chol Direct 85 <=99 mg/dL MICROALBUMIN, URINE, RANDOM Component Value Range U Creatinine 108 U Ran Malb Conc <3.0 U Ran Malb Calc <3 documented in this encounter Plan of Treatment Upcoming Encounters Date Type Department Care Team (Late st Contact Info) Description 11/08/2024 3:30 PM EST Office Visit Dermatology at [address] [phone] Prosper Schmidt MD [address] [place] [address], [facility] [place] [address] 12/14/2024 2:40 PM EST Office Visit Cardiology at [address] [phone] Benjie Garrison MD [facility] [place] [address] documented as of this encounter Procedures Procedure Name Priority Date/Time Associated Diagnosis Comments U ALBUMIN/CRE RATIO Routine 12/27/2013 4 :11 PM EST Type II or unspecified type diabetes mellitus without mention of complication, uncontrolled TSH Routine 12/27/2013 4:07 PM EST Type II or unspecified type diabetes mellitus without mention of complication, uncontrolled LDL CHOLESTEROL, DIRECT Routine 12/27/2013 4:07 PM EST Type II or unspecified type diabetes mellitus without mention of complication, uncontrolled HDL/CHOL PROFILE Routine 12/27/2013 4:07 PM EST Type II or unspecified type diabetes mellitus without mention of complication, uncontrolled HEMOGLOBIN A1C Routine 12/27/2013 4:07 PM EST Type II or unspecified type diabetes mellitus without mention of complication, uncontrolled COMPREHENSIVE METABOLIC PANEL Routine 12/27/2013 4:07 PM EST Type II or unspecified type diabetes mellitus without mention of complication, uncontrolled documented in this encounter Results * Microalbumin, urine, random (12/27/2013 4:11 PM EST) Creatinine, Urine 108 mg/dL CE RNER MILLENNIUM Albumin, Urine <3.0 mg/L CERNE R MILLENNIUM Albumin / Creatinin Ratio, Urine <3 mcg/mg Cr CERNER MILLENNIUM Comment: Reference Range* Random collection (mcg/mg creatinine) Normal ?<30 Microalbuminuria ?? 30 - 300 Clinical Albuminuria ?? >300 *[place] Diabetes Association. Diabetic Nephropathy. Diabetes Care 1997;(Suppl 1):S24-S27 Exercise within 24 hour, infection, fever, CHF, marked hyperglycemia, and marked hypertension may elevate urinary albumin excretion over baseline values. Urine specimen (specimen) 12/27/2013 4:11 PM EST 12/27/2013 4:16 PM EST Narrative Resulting Agency Comment Spec In Lab Bernardo Britton MD URINE ORDERABLES CERNER Glo BagsENNIUM * LDL Cholesterol, Direct (12/27/2013 4:07 PM EST) LDL Cholesterol, Direct 85 <=99 mg/dL CERNER MILLENNIUM Comment: The National Cholesterol Education Program (NCEP) has set the following guidelines for LDL Cholesterol: Reference range: ?? Optimal: ?<100 mg/dL ?? Near Optimal/Above Optimal: ?? 100-129 mg/dL ?? Borderline high: ?130-159 mg/dL ?? High: ? 160-189 mg/dL ?? Very high: ?>bn=468 mg/dL HERMINIO 2001: 285(19):6025-3304 Blood specimen (specimen) 12/27/2013 4:07 PM EST 12/27/2013 4:16 PM EST Narrative Resulting Agency Comment Spec In Lab Bernardo Britton MD CHEMISTRY ORDERABLES [facility] * HDL/Cholesterol Profile (12/27/2013 4:07 PM EST) Cholesterol, Total 141 <=199 mg/dL [facility] Comment: Recommendations of the NCEP Adult Treatment Panel for the following risk cutoff thresholds for the [place] population: Desirable: <200 mg/dL Borderline High: 200-239 mg/dL High: > or = 240 mg/dL HDL Cholesterol 49 >=40 mg/dL [facility] Comment: Reference range: ??Low HDL: ?? < 40 mg/dL ??Normal: ?40-60 mg/dL ??Desirable: > 60 mg/dL HERMINIO 2001; 285(19):2013-0666 Cholesterol/HDL Ratio 2.9 ratio [facility] Comment: A Cholesterol to HDL ratio below 4:1 is desirable. ??Studies suggest that increased CAD risk occurs at ratios above 5 for females and above 6 for men. ? [place] Heart Association ??(http://www.americanheart.org) ? Tanja Int Med, 1994; 121:641 ? AM J Med, 1998; 105(1A):48S Blood specimen (specimen) 12/27/2013 4:07 PM EST 12/27/2013 4:16 PM EST Narrative Resulting Agency Comment Spec In Lab Bernardo Britton MD CHEMISTRY ORDERABLES [facility] * TSH (12/27/2013 4:07 PM EST) Thyroid Stimulating Hormone 3.73 0.27 - 4.20 mcIU/mL [facility] H[facility]OOK Blood specimen (specimen) 12/27/2013 4:07 PM EST 12/27/2013 4:16 PM EST Narrative Resulting Agency Comment Spec In Lab Bernardo Britton MD CHEMISTRY ORDERABLES [facility] * (ABNORMAL) Hemoglobin A1c (12/27/2013 4:07 PM EST) Hemoglobin A1c 8.2(H) <=5.6 % ARISTIDESMA Niko [facility] Comment: As of 2013 the methodology for Hemoglobin A1c testing has changed. This change is accompanied by a new interpretive statement and flags. Please review the new interpretive statement and contact Dr. Rodriguez or Dr. Bliss with questions. Reference Range: 4.3 ? 5.6% 5.7 ? 6.4% - Increased Risk of Developing Diabetes [...] 1, S67-74 Estimated Average Glucose 189 mg/dL [facility] Comment: eAG equivalents for HbA1c percentages: HbA1c(%) ?eAG(mg/dL) 6.0 ?126 6.5 ?140 7.0 ?154 7.5 ?169 8.0 ?183 8.5 ?197 9.0 ?212 9.5 ?226 10.0 ? 240 Limitations: The eAG calculation has not been validated on women, individuals below 18 years old and above 70 years old, and individuals with hemoglobinopathies. Additional resources are available on the ADA website: ??http://professional.diabetes.org/glucosecalculator.aspx Jon MURPHY, Carol J, Tino R, et al. ??Translating the A1C assay into estimated average glucose values. ??Diabetes Care 2008:31(8):7081-8705. Blood specimen (specimen) 12/27/2013 4:07 PM EST 12/27/2013 4:16 PM EST Narrative Resulting Agency Comment Spec In Lab Bernardo Britton MD CHEMISTRY ORDERABLES [facility] MILLENNIUM * (ABNORMAL) Comprehensive metabolic panel (non-fasting) (12/27/2013 4:07 PM EST) [facility] Glucose 211(H) 60 - 199 mg/dL CERNER MILLENNIUM Comment:Diabetes: >=200 mg/d L plus symptoms Blood Urea Nitrogen 19 10 - 20 mg/dL CERNER MILLENNIUM Creatinine 1.08 0.80 - 1.50 mg/dL CERNER MILLENNIUM Comment: Please note that the pediatric reference intervals supplied above were not validated at [facility]. Results from pediatric patients should be interpreted in conjunction to the patient's age, height and muscle mass. Sodium 137 135 - 145 mmol/L CERNER MILLENNIUM Potassium 4.5 3.5 - 5.0 mmol/L CERNER MILLENNIUM Comment: Please note: ??Patients with WBC >100,000 may have falsely elevated Potassium levels. ??For accurate Potassium quantification in these patients send serum separator tube (gold top) for subsequent determinations. ??Contact the Clinical Chemistry Laboratory if there are any questions. Chloride 99 98 - 107 mmol/L CERNER MILLENNIUM Carbon Dioxide 26 22 - 31 mmol/L CERNER MILLENNIUM Anion Gap 12 5 - 15 mmol/L CERNER MILLENNIUM Calcium 9.8 8.5 - 10.5 mg/dL CERNER MILLENNIUM Protein, Total 7.4 6.4 - 8.3 gm/dL CERNER MILLENNIUM Albumin 4.6 3.2 - 5.2 gm/dL CERNER MILLENNIUM Aspartate Aminotransferase 16 0 - 39 unit/L CERNER MILLENNIUM Alanine Aminotransferase 16 0 - 55 unit/L CERNER MILLENNIUM Alkaline Phosphatase 123(H) 40 - 120 unit/L CERNER MILLENNIUM Bilirubin, Total 0.2 0.2 - 1.3 mg/dL CERNER MILLENNIUM Bilirubin, Direct 0.1 0.0 - 0.3 mg/dL CERNER MILLENNIUM Est Glomerular Filtration Rate >60 >=60 CERNER MILLENNIUM Comment: This estimated GFR (eGFR) value was [...] the following links into your internet browser. http://www.nkdep.nih.gov/lab-evaluation.shtml http://www.kidney.org/professionals/ Blood specimen (specimen) 12/27/2013 4:07 PM EST 12/27/2013 4:16 PM EST Narrative Resulting Agency Comment Spec In Lab Bernardo Britton MD CHEMISTRY ORDERABLES CERRYNE MILLENNIUM documented in this encounter Visit Diagnoses Diagnosis Type II or unspecified type diabetes mellitus without mention of complication, uncontrolled- Primary documented in this encounter Care Teams University Teacher Relationship Specialty Start Date End Date Maciej Szymanski DO [address] [place] [address] PCP - General 09/18/10 09/30/22 documented as of this encounter
--- OUTSIDE RECORDS SUMMARY | 2024-10-08 00:40 | XMS_ITS | Encounter Summary ---
Author Organization [facility] Address [address] [place] [address] Care Team Providers Care Sail Finisher Machine Name Role Phone Unknown, Provider Primary Care Provider Unava ilable Encounter Details Date Type Department Care Team (Latest Contact Info) Description 08/30/2014 8:29 EST - 08/30/2014 23:59 EST Hospital Encounter [facility] [address] [place] [address] Unknown, Provider, Discharge Disposition: Home or Self Care Social History Tobacco Use Types Packs/Day Years Used Date Smoking Tobacco: Never Assessed Sex and Gender Information Value Date Recorded Sex Assigned at Not on file Legal Sex Male 18:17 EST Gender Identity Not on file Sexual Orientation Not on file documented as of this encounter Discharge Disposition Disposition Code Departure Means Destination Home or Self Senior Living documented in this encounter Plan of Treatment Not on file documented as of this encounter Visit Diagnoses Not on filedocumented in this encounter Care Teams Sail Finisher Machine Relationship Specialty Start Date End Date Unknown, Provider, PCP - General 02/25/11 08/13/15 documented as of this encounter
--- OUTSIDE RECORDS SUMMARY | 2024-10-08 00:40 | XMS_ITS | Encounter Summary ---
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/26/2012 Encounter Details Date Type Department Care Team (Late st Contact Info) Description 10/26/2012 Telephone [place] [phone] Ann Villalpando RN Du's Esophagus Social History Tobacco Use Types Packs/Day Years Used Date Smoking Tobacco: Never Alcohol Use Standard Drinks/Week Comments No 0 (1 standard drink = 0.6 oz pur e alcohol) Sex and Gender Information Value Date Recorded Sex Assigned at Not on file Gender Identity Not on file Sexual Orientation Not on file documented as of this encounter Miscellaneous Notes * Telephone Encounter - Ann Villalpando RN - 10/29/2012 3:00 PM EST Pt left message that his PCP recommended he have 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 TC returned to Pt to explain that the biopsy showed no dysplastic cells so no treatment is necessary at this time. Follow up endoscopy for survellience and continue acid reflux medications. Pt verbalized understanding. documented in this encounter Plan of Treatment Upcoming Encounters Date Type Department Care Team (Late st Contact Info) Description 11/08/2024 3:30 PM EST Office Visit Dermatology at [place] [address] [facility] [place] [address] Prosper Schmidt MD [address] [facility] [place] [address] 12/14/2024 2:40 PM EST Office Visit Cardiology at [address] [place] [address] Benjie Garrison MD [facility] [place] [address] documented as of this encounter Visit Diagnoses Not on filedocumented in this encounter Care Teams Survey Superintendent Relationship Specialty Start Date End Date Maciej Szymanski DO [address] [facility] [address] [place] [address] PCP - General 09/18/10 09/30/22 documented as of this encounter
--- OUTSIDE RECORDS SUMMARY | 2024-10-08 00:40 | XMS_ITS | Encounter Summary ---
[place] [address] Care Team Providers Care Steam Meter Reader Name Role Phone Maciej Szymanski DO Primary Care Provider Reason for Visit * Reason Comments Psoriasis Encounter Details Date Type Department Care Team (Late st Contact Info) Description 04/02/2012 5:15 PM EDT Office Visit Dermatology [address] [facility] [address] [place], [place] [id number] Prosper Schmidt MD [address] [place] [address], [facility] [place] [address] Psoriasis (Primary Dx) Social History Tobacco Use Types Packs/Day Years Used Date Smoking Tobacco: Never Sex and Gender Information Value Date Recorded Sex Assigned at Not on file Gender Identity Not on file Sexual Orientation Not on file documented as of this encounter Progress Notes * Prosper Schmidt MD - 04/02/2012 6:12 PM EDT Problem: Follow up psoriasis status post one month of methotrexate. Patient unable to tolerate sulfasalazine. New onset psoriasis, December 2011. Ervin follows up and, unfortunately, he has not seen much improvement with 10 mg of methotrexate a week. The patient has tolerated the methotrexate well without any stomach upset. Physical examination reveals ongoing guttate like plaques on the abdomen, larger plaques on the presacral back, and diffuse involvement throughout the scalp with some extension of the forehead still. He has some patchy areas of involvement on the arms. 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 a. Continue methotrexate but now double from 10 to 20 mg p.o. weekly; #30 dispensed with one refill. The patient now has insurance coverage for his prescriptions. b. Recent labs from March 31 within normal limits. Repeat again in two months. Return to clinic in two months for repeat check. c. May continue with triamcinolone 0.1% cream to affected areas. Copy: Maciej Szymanski D.O. documented in this encounter Plan of Treatment Upcoming Encounters Date Type Department Care Team (Late st Contact Info) Description 11/08/2024 3:30 PM EST Office Visit Dermatology at [address] [phone] Prosper Schmidt MD [address] [place] [address], [facility] [place] [address] 12/14/2024 2:40 PM EST Office Visit Cardiology at [address] [phone] Benjie Garrison MD [facility] [place] [address] documented as of this encounter Visit Diagnoses Diagnosis Psoriasis- Primary Other psoriasis documented in this encounter Care Teams Steam Meter Reader Relationship Specialty Start Date End Date Maciej Szymanski DO [address] [facility] [address] [place] [address] PCP - General 09/18/10 09/30/22 documented as of this encounter
--- OUTSIDE RECORDS SUMMARY | 2024-10-08 00:40 | XMS_ITS | Encounter Summary ---
Author Organization [facility] Address [address] [place] [address] Care Team Providers Care Bobbin Fixer Name Role Phone Unknown, Provider Primary Care Provider Unava ilable Encounter Details Date Type Department Care Team (Late st Contact Info) Description 02/22/2011 Results Only [facility] Services - [facility] ([facility] [address] [place], [place] [address] Regan Mcgowan MD [address] [place], [place] [id number] Social History Tobacco Use Types Packs/Day Years [...] Date/Time Associated Diagnosis Comments SURGICAL PATHOLOGY Routine 02/22/2011 0:00 EDT documented in this encounter Results * SURGICAL PATHOLOGY (02/22/2011 0:00 EDT) Pathology Report: SURGICAL PATHOLOGY REPORT ? Reports generated via electronic interface contain original data; ? however they are lacking the format of the original report. ? Caution should be taken when reading/interpreti ng unformatted reports. ? Name: ? ANALIA, WILNER S ? Accession #: ? [id number] ? : ? 1965 (Age: 45) ??M ? Collect Date: ? 02/22/2011 ? Location: ? [facility] ? Receive Date: ? 02/23/2011 ? Provider: REGAN MCGOWAN MD ? Copy to: CHRISTOPHER MILIAN DO ? Final Pathologic Diagnosis: ? A. ?Stomach, body, biopsy: ? 1. ?Oxyntic mucosa with no pathologic features. ? B. ?Esophagus, 36 cm, biopsy: ? 1. 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 ? 2. ? No dysplasia identified. ? C. ?Colon, sigmoid, polyp, biopsy: ? 1. ?Cauterized colonic mucosa. ??See comment. ? Comment: ? Deeper levels were examined in specimen (C). (Dr. Galo)/mpl ? Document reviewed and electronically signed by: ? SANTIAGO GARCIA MD ? Report ??Date: 02/27/2011 15:32 ? By the signature above, the attending physician certifies that he/she has ? personally conducted a gross and/or microscopic examination of the described ? specimens and rendered or confirmed the above diagnosis. ? Specimen(s) Received: ? EGD ? 1. ?Bx gastric body ? 2. ? Bx lower esophagus 36 cm ? Colonoscopy ? 3. ?? Sigmoid polyp ? Clinical History: ? Low iron, weight loss ? Gross Description: ? Received in formalin labelled Analia, Wilner and bx gastric body are two crawford-pink irregular soft tissue fragments averaging 0.6 x 0.2 x 0.2 cm. ??The ? specimen is entirely submitted as (A). ? Received in formalin labelled Wilner Helms and bx lower esophagus 36 cm are four crawford-pink irregular soft tissue fragments ranging from 0.2 x 0.2 x 0.2 cm to 0.4 x 0.2 x 0.2 cm. ??The specimen is entirely submitted as (B1) and (B2). ? Received in formalin labelled Wilner Helms and sigmoid polyp is a crawford-pink 0.6 x 0.4 x 0.3 cm soft tissue fragment. ??The specimen is entirely submitted as (C). (Damon Pina)/mpl ? End of Report ? [facility] 02/22/2011 02/23/2011 9:4 9 EDT us Regan Mcgowan MD PATHOLOGY ORDERABLES Final Resul t [facility] [address] [place] [address] documented in this encounter Visit Diagnoses Not on filedocumented in this encounter Care Teams Bobbin Fixer Relationship Specialty Start Date End Date Unknown, Provider, PCP - General 02/25/11 08/13/15 documented as of this encounter
--- OUTSIDE RECORDS SUMMARY | 2024-10-08 00:40 | XMS_ITS | Encounter Summary ---
Author Organization [facility] Address [address] [place] [address] Care Team Providers Care Hadoop Administrator Name Role Phone Unknown, Provider Primary Care Provider Maciej Peacock DO Primary Care Provider [phone] Encounter Details Date Type Department Care Team (Late st Contact Info) Description 08/30/2014 Historical Results Only [facility] Radiology Results [address] [place] [address] Santhosh Henderson MD [address] [place] [id number] Social History Tobacco Use Types Packs/Day Years [...] Name Priority Date/Time Associated Diagnosis Comments XR ANKLE LEFT 3 OR MORE VIEWS 08/30/2014 11:08 EST documented in this encounter Results * XR ANKLE LEFT 3 OR MORE VIEWS (08/30/2014 11:08 EST) Anatomical Region Laterality Modality Lower Extremities, Ankle Left Other 08/30/2014 11:0 8 EST Narrative 08/30/2014 14:30 EST ? EXAM: RADIOLOGY/ANKLE LEFT 3+VIEW ? EX. D/ (1108) ? CLINICAL INFORMATION: ? ASSESS CHANGES CONSISTENT W/ INFLAMMATORY ? ARTHRITIS, PSORIATIC ARTHRITIS ? INDICATION: ??Assess changes consistent with inflammatory arthritis, ? psoriatic arthritis. ? TECHNIQUE: ??Left ankle, 3 views ? FINDINGS: ??There is minimal swelling of the ankle joint soft tissues. ? There are vascular calcifications. Bone density is normal. The ankle ? mortise is symmetric and intact. No radiographic evidence of ? inflammatory or other arthritic process is identified. No ? proliferative bone change is seen. ? IMPRESSION: ? 1. ? Mild soft tissue swelling. ? 2. ? Vascular calcifications. ? SALESPERSON BURIAL PLOTS:kad ?Reported By: Prosper Cee MD ? CC: ? Transcribed Date/Time: 08/30/2014 (1430) ? Electrical Troubleshooter: KRISHNA ? Printed Date/Time: 03/29/2019 (1334) ? PAGE 1 ? Signed Report ? Procedure Note Prosper Cee MD - 08/31/2019 EXAM: RADIOLOGY/ANKLE LEFT 3+VIEW EX. D/ ([id number]) CLINICAL INFORMATION: ASSESS CHANGES CONSISTENT W/ INFLAMMATORY ARTHRITIS, PSORIATIC ARTHRITIS INDICATION: Assess changes consistent with inflammatory arthritis, psoriatic arthritis. TECHNIQUE: Left ankle, 3 views FINDINGS: There is minimal swelling of the ankle joint softtissues. There are vascular calcifications. Bone density is normal. Theankle mortise is symmetric and intact. No radiographic evidence of inflammatory or other arthritic process is identified. No proliferative bone change is seen. IMPRESSION: 1. Mild soft tissue swelling. 2. Vascular calcifications. SALESPERSON BURIAL PLOTS:nik Reported By: Prosper Cee MD CC: Transcribed Date/Time: 08/30/2014 (0744) Electrical Troubleshooter: KRISHNA Printed Date/Time: 03/29/2019 (6846) PAGE 1 Signed Report us Santhosh Henderson MD IMG DIAGNOSTIC IMAGING ORDERABL ES Final Result documented in this encounter Visit Diagnoses Not on filedocumented in this encounter Care Teams Hadoop Administrator Relationship Specialty Start Date End Date Unknown, Provider, PCP - General 02/25/11 08/13/15 Maciej Szymanski DO [address] [place] [address] PCP - General 08/14/15 11/26/21 documented as of this encounter
--- OUTSIDE RECORDS SUMMARY | 2024-10-08 00:40 | XMS_ITS | Clinical Summary ---
Author Organization [facility] Address [address] [place] [address] Care Team Providers Care Horticulture Worker Name Role Phone Unavailable Primary Care Provider Unavailabl e Social History Tobacco Use Types Packs/Day Years Used Date Smoking Tobacco: Never Assessed Sex and Gender Information Value Date Recorded Sex Assigned at Not on file Legal Sex Male 18:17 EST Gender Identity Not on file Sexual Orientation Not on file Plan of Treatment Health Maintenance Due Date Last Done Comments Hepatitis B Vaccine (1 of 3 - 19+ 3-dose series) 12/26 COVID-19 Vaccine ( season) 2024 Hepatitis C Screen Completed 03/27/2022 Procedures Procedure Name Priority Date/Time Associated Diagnosis Comments HEPATITIS C AB W REFLEX TO HCV RNA BY PCR Routine 03/27/2022 8:47 EDT from Last 3 Months or Most Recently Relevant to Health Maintenance Results * HEPATITIS C AB W REFLEX TO HCV RNA BY PCR (03/27/2022 8:47 EDT) Hep C Antibody Negative Negative 03/28/2022 10:56 EDT [facility] Blood VENOUS BLOOD / Unknown 03/27/2022 8:47 EDT 03/27/2022 21:11 EDT us Provider Outr Resulting Lab CHEMISTRY & BLOOD GA S ORDERABLES Final Result [facility] [address] [place] [address] from Last 3 Months or Most Recently Relevant to Health Maintenance Insurance [address] [place] [id number] [place] [address] Member Subscriber Plan / Payer (Ef fective 2021-Present) Name:Analia Ervin Earl Relation to Subscriber:Self Name:Ervin Helms Payer ID:Not on file Type:[facility] Address: [place] [id number] [place] [phone] [place] [phone] [place] [phone] [place] [phone] [place] [phone]
--- OUTSIDE RECORDS SUMMARY | 2024-10-08 00:40 | XMS_ITS | Encounter Summary ---
Author Organization [facility] Address [facility] [place] [address] Care Team Providers Care Electric Drill Operator Name Role Phone Maciej Szymanski DO Primary Care Provider Reason for Visit * Reason Comments Diabetes Encounter Details Date Type Department Care Team (Late st Contact Info) Description 08/24/2013 2:30 PM EDT Office [place] [address] [facility] [address] [place] [address] Type II or unspecified type diabetes mellitus [...] Sign Reading Time Taken Comments Blood Pressure 122/94 08/24/2013 2:24 PM EDT Pulse 84 08/24/2013 2:24 PM EDT Temperature - - Respiratory Rate - - Oxygen Saturation - - Inhaled Oxygen Concentration - - Weight 70.2 kg (154 lb 12.8 oz) 08/24/2013 2:24 PM EDT Height - - Body Mass Index - - documented in this encounter Patient Instructions * Patient Instructions* [facility] New APRN - 08/24/2013 3:15 PM EDT Continue lantus 15 units at night. Stop AM dose Increase dose by 2 units every 2 nights to get fasting glucose in AM under 130. Okay to lower dose by 2 units if glucose in AM is under 80 Resume metformin 1000mg before evening meal and then if no side effects, add AM dose before breakfast If glucose levels are above 140 then resume glipizide documented in this encounter Progress Notes * [facility] New APRN - 08/24/2013 3:45 PM EDT DATE OF VISIT: 08/24/2013 REASON FOR VISIT: New patient to endocrinology for type 2 DM, in poor control. BRIEF HISTORY: States glucose levels are usually okay in the morning, but they can be over 300 in the evening. DATE OF DIAGNOSIS OF DIABETES: 2009 on routine lab for a physical. DIABETES REGIMEN: Lantus SoloSTAR pen 20 units a.m., 15 units p.m. PREVENTION STRATEGIES: Does go to the dentist, does have an annual dilated eye exam. SBGM: Two times a day. DX CODE: 250.02. 24-HOUR MEAL PLAN: Breakfast is cereal. Lunch was corn beef and cabbage and corn chowder. Dinner was pork loin, potatoes, and a roll; and he did have dessert. States sometimes in the evening he has a fourth meal, last night had chili and bread because he does not want to lose too much weight; has met with a telescope maintenance, Jennie Solis in [facility]. PHYSICAL ACTIVITY: Does workouts, does strength training, does not want to lose any muscle or any weight. 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 Eyes: Has had bilateral cataracts removed. No recent headaches or chest pain or shortness of breath. GI Symptoms: Takes medication for GERD. Sleep Pattern: Has been okay. Extremities: Has some left ankle pain, which he has been advised it may be psoriatic arthritis. Skin: Followed by supervisor beam department for psoriasis, takes methotrexate. PHYSICAL EXAMINATION: Appearance: He appears in good health. History of surgery for scoliosis, still has obvious spine changes from scoliosis. Eyes: No retinopathy by green light exam. Neck: No thyromegaly or lymphadenopathy. Heart: Regular rate and rhythm. No murmurs. Lungs: Clear to auscultation. Feet: Skin is normal, pulses are normal. Neurologic: Normal sensation to 10 g of pressure. LABORATORY DATA: The patient was not certain of what his most recent hemoglobin A1c result was. IMPRESSION AND PLAN: Diabetes mellitus, in poor overall control. Reviewed glucose results from written log, will stop a.m. dose of Lantus and use p.m. dose, start 15 units and increase dose by 2 units every two nights until fasting glucose is under 130. Cautioned the patient against having a full fourth meal in the evening. Will resume metformin 1000 mg twice a day and glipizide up to 10 mg twice a day to see if oral medications can control glucose levels during the day. Discussed with the patient if glucose levels are not under 130 before meals, will consider either mix insulin twice a day or basal bolus regimen at next office visit. Blood pressure is close to goal, 129/94; weight 154 pounds. IMMUNIZATION UPDATE: Flu vaccine given by Shakira Oates LPN. This was a 47-minute office visit with 46 minutes spent counseling face to face with the patient in the management of glucose levels, discussing the available medication regimen options, reviewing blood pressure targets and cholesterol targets. Return to office in November. Will check hemoglobin A1c, HDL, VLDL, microalbumin, TSH, CMP. documented in this encounter Plan of Treatment Upcoming Encounters Date Type Department Care Team (Late st Contact Info) Description 11/08/2024 3:30 PM EST Office Visit Dermatology at [address] [place] [place] [address] Prosper Schmidt MD [address] [place] [address], [facility] [place] [address] 12/14/2024 2:40 PM EST Office Visit Cardiology at [address] [place] [address] Benjie Garrison MD [facility] [place] [address] documented as of this encounter Results * Microalbumin, urine, random (12/27/2013 4:11 PM EST) Creatinine, Urine 108 mg/dL CE RNER MILLENNIUM Albumin, Urine <3.0 mg/L CERNE R MILLENNIUM Albumin / Creatinin Ratio, Urine <3 mcg/mg Cr CERNER MILLENNIUM Comment: Reference Range* Random collection (mcg/mg creatinine) Normal ?<30 Microalbuminuria ?? 30 - 300 Clinical Albuminuria ?? >300 *[place] Diabetes Association. Diabetic Nephropathy. Diabetes Care 1997;(Suppl 1):S24-S27 Exercise within 24 hour, infection, fever, CHF, marked hyperglycemia, and marked hypertension may elevate urinary albumin excretion over baseline values. Urine specimen (specimen) 12/27/2013 4:11 PM EST 12/27/2013 4:16 PM EST Narrative Resulting Agency Comment Spec In Lab Bernardo Britton MD URINE ORDERABLES [facility] * LDL Cholesterol, Direct (12/27/2013 4:07 PM EST) LDL Cholesterol, Direct 85 <=99 mg/dL [facility] Comment: The National Cholesterol Education Program (NCEP) has set the following guidelines for LDL Cholesterol: Reference range: ?? Optimal: ?<100 mg/dL ?? Near Optimal/Above Optimal: ?? 100-129 mg/dL ?? Borderline high: ?130-159 mg/dL ?? High: ? 160-189 mg/dL ?? Very high: ?>uf=939 mg/dL HERMINIO 2001: 285(19):3360-6594 Blood specimen (specimen) 12/27/2013 4:07 PM EST 12/27/2013 4:16 PM EST Narrative Resulting Agency Comment Spec In Lab Bernardo Britton MD CHEMISTRY ORDERABLES Performing Organization Address [facility] de Phone Number ANEUDY ANGULOIUM * HDL/Cholesterol Profile (12/27/2013 4:07 PM EST) Cholesterol, Total 141 <=199 mg/dL CERNER MILLENNIUM Comment: Recommendations of the NCEP Adult Treatment Panel for the following risk cutoff thresholds for the [place] population: Desirable: <200 mg/dL Borderline High: 200-239 mg/dL High: > or = 240 mg/dL HDL Cholesterol 49 >=40 mg/dL CER NER MILLENNIUM Comment: Reference range: ??Low HDL: ?? < 40 mg/dL ??Normal: ?40-60 mg/dL ??Desirable: > 60 mg/dL HERMINIO 2001; 285(19):0997-4099 Cholesterol/HDL Ratio 2.9 ratio CERNER MILLENNIUM Comment: A Cholesterol to HDL ratio below 4:1 is desirable. ??Studies suggest that increased CAD risk occurs at ratios above 5 for females and above 6 for men. ? [place] Heart Association ??(http://www.americanheart.org) ? Tanja Int Med, 1994; 121:641 ? AM J Med, 1998; 105(1A):48S Blood specimen (specimen) 12/27/2013 4:07 PM EST 12/27/2013 4:16 PM EST Narrative Resulting Agency Comment Spec In Lab Bernardo Britton MD CHEMISTRY ORDERABLES Performing Organization Address [facility] Co de Phone Number ANEUDY HOLBROOK * TSH (12/27/2013 4:07 PM EST) Thyroid Stimulating Hormone 3.73 0.27 - 4.20 mcIU/mL CERNER MILLENNIUM Blood specimen (specimen) 12/27/2013 4:07 PM EST 12/27/2013 4:16 PM EST Narrative Resulting Agency Comment Spec In Lab Bernardo Britton MD CHEMISTRY ORDERABLES ANEUDY HOLBROOK * (ABNORMAL) Hemoglobin A1c (12/27/2013 4:07 PM EST) Hemoglobin A1c 8.2(H) <=5.6 % TIFF HOLBROOK Comment: As of 2013 the methodology for [...] Mellitus, Diabetes Care 2013; 36: Suppl. 1, S67-26 Estimated Average Glucose 189 mg/dL ANEUDY HOLBROOK Comment: eAG equivalents for HbA1c percentages: HbA1c(%) [...] into estimated average glucose values. ??Diabetes Care 2008:31(8):6032-9779. Blood specimen (specimen) 12/27/2013 4:07 PM EST 12/27/2013 4:16 PM EST Narrative Resulting Agency Comment Spec In Lab Bernardo Britton MD CHEMISTRY ORDERABLES CERNER MILLENNIUM * (ABNORMAL) Comprehensive metabolic panel (non-fasting) (12/27/2013 4:07 PM EST) Glucose 211(H) 60 - 199 mg/dL CERNER MILLENNIUM Comment:Diabetes: >=200 mg/d L plus symptoms Blood Urea Nitrogen 19 10 - 20 mg/dL CERNER MILLENNIUM Creatinine 1.08 0.80 - 1.50 mg/dL CERNER MILLENNIUM Comment: Please note that the pediatric reference intervals supplied above were not validated at [facility]. Results from pediatric patients should [...] Bernardo Britton MD CHEMISTRY ORDERABLES ANEUDY HOLBROOK documented in this encounter Visit Diagnoses Diagnosis Type II or unspecified type diabetes mellitus without mention of complication, uncontrolled- Primary documented in this encounter Care Teams Electric Drill Operator Relationship Specialty Start Date End Date Maciej Szymanski DO [address] [place] [address] PCP - General 09/18/10 09/30/22 documented as of this encounter
--- OUTSIDE RECORDS SUMMARY | 2024-10-08 00:40 | XMS_ITS | Encounter Summary ---
Author Organization [facility] [address] Care Team Providers Care Composing Room Machinist Apprentice Name Role Phone Maciej Szymanski DO Primary Care Provider [phone] Reason for Visit * Reason Comments Follow-up Encounter Details Date Type Department Care Team (Late st Contact Info) Description 01/28/2013 4:30 PM EDT Office Visit Dermatology [address] [facility] [address] [place] [address] Prosper Schmidt MD [address] [place] [address], [facility] [place] [address] Psoriasis (Primary Dx); Verruca vulgaris Social History [...] Progress Notes * Prosper Schmidt MD - 01/28/2013 5:17 PM EDT Problem: Followup psoriasis on methotrexate. Ervin follows up and is doing well on methotrexate, taking 10 mg p.o. each week. 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 Also, he has noted two verrucae present on his left second finger. Physical examination confirms the patient's psoriasis otherwise is largely quiescent with no guttate lesions on the back or chest, just the quarter-sized plaque on the right flank; also some mild, patchy scaling and sebopsoriasis minimally in the parietal scalp and minimally today in the groin area. Assessment and Plan: 1. Verrucae vulgaris, left second finger. a. LN2 times three applied to site. b. I recommended return to the clinic in two weeks for repeat check and repeat treatment if still present. Otherwise, return to the clinic p.r.n. 2. Psoriasis. a. Continue to try and taper methotrexate, going now to just three of the 2.5-mg pills p.o. each week for two weeks, then two p.o. each week for two weeks, then one p.o. each week for two weeks, then discontinue; #12 dispensed with zero refills. b. May continue triamcinolone, although trying to minimize its use in the groin area. c. For right flank involvement, this was injected today with Kenalog 5 mg/mL, a total of 2 mL injected. Copy: Maciej Szymanski D.O. documented in this encounter Plan of Treatment Upcoming Encounters Date Type Department Care Team (Late st Contact Info) Description 11/08/2024 3:30 PM EST Office Visit Dermatology at [address] [address] Prosper Schmidt MD [address] [place] [address], [facility] [place] [address] 12/14/2024 2:40 PM EST Office Visit Cardiology at [address] [address] Benjie Garrison MD [facility] [place] [address] documented as of this encounter Visit Diagnoses Diagnosis Psoriasis- Primary Other psoriasis Verruca vulgaris Viral warts, unspecified documented in this encounter Care Teams Composing Room Machinist Apprentice Relationship Specialty Start Date End Date Maciej Szymanski DO [address] [facility] [facility] [facility] [address] [facility] [address] [place] [address] PCP - General 09/18/10 09/30/22 documented as of this encounter
--- OUTSIDE RECORDS SUMMARY | 2024-10-08 00:40 | XMS_ITS | Encounter Summary ---
Author Organization [facility] Address [address] [place] [address] Care Team Providers Care Compliance Technician Name Role Phone Unavailable Primary Care Provider Unavailabl e Encounter Details Date Type Department Care Team (Late st Contact Info) Description 11/04/2023 Lab Requisition [facility] Pathology & Laboratory Medicine - [facility] [address] [place], [place] [address] Outr Resulting Lab, Provider Social History Tobacco [...] Procedure Name Priority Date/Time Associated Diagnosis Comments QUANTIFERON MITOGEN (PERFORMABLE) Today 11/03/2023 16:00 EST QUANTIFERON TB2 (PERFORMABLE) Today 11/03/2023 16:00 EST QUANTIFERON TB1 (PERFORMABLE) Today 11/03/2023 16:00 EST QUANTIFERON NIL (PERFORMABLE) Today 11/03/2023 16:00 EST QUANTIFERON INTERPRETATION (PERFORMABLE) Today 11/03/2023 16:00 EST QUANTIFERON TB GOLD PLUS Routine 11/03/2023 16:00 EST documented in this encounter Results * QUANTIFERON INTERPRETATION (PERFORMABLE) (11/03/2023 16:00 EST) Quantiferon Interpretation Negative Negative 11/05/2023 12:45 EST [facility] Comment:No interferon-gamma response to M. tuberculosis antigens was detected. ??Infection with M. tuberculosis is unlikely. A single negative result does not exclude infection with M. tuberculosis. ??In patients at high risk for M. tuberculosis infection, a second test should be considered. TB1 Ag minus Nil 0.01 IU/ml 11/05/19 24 12:45 EST [facility] TB2 Ag minus Nil 0.02 IU/mL 11/05/19 24 12:45 EST [facility] Blood VENOUS BLOOD / Unknown 11/03/2023 16:00 EST 11/05/2023 12:26 EST Narrative [facility] - 11/05/2023 12:45 EST Results were obtained with the Qiagen QuantiFERON-TB Gold Plus CLIA. New platform in use 07/04/2021 us Provider Outr Resulting Lab IMMUNOLOGY AND SEROL OGY ORDERABLES Final Result Performing Organization Address [facility] Co de Phone Number [facility] [address] [place] [phone] * QUANTIFERON MITOGEN (PERFORMABLE) (11/03/2023 16:00 EST) Blood VENOUS BLOOD / Unknown 11/03/2023 16:00 EST 11/04/2023 17:12 EST us Provider Outr Resulting Lab IMMUNOLOGY AND SEROL OGY ORDERABLES Final Result Performing Organization Address City/[facility]/ZIP Co de Phone Number [facility] [address] [place] [phone] * QUANTIFERON TB2 (PERFORMABLE) (11/03/2023 16:00 EST) Blood VENOUS BLOOD / Unknown 11/03/2023 16:00 EST 11/04/2023 17:12 EST us Provider Outr Resulting Lab IMMUNOLOGY AND SEROL OGY ORDERABLES Final Result Performing Organization Address [facility] Co de Phone Number [facility] [address] [place] [address] * QUANTIFERON TB1 (PERFORMABLE) (11/03/2023 16:00 EST) Blood VENOUS BLOOD / Unknown 11/03/2023 16:00 EST 11/04/2023 17:12 EST us Provider Outr Resulting Lab IMMUNOLOGY AND SEROL OGY ORDERABLES Final Result Performing Organization Address [facility] Co de Phone Number [facility] [address] [place] [address] * QUANTIFERON NIL (PERFORMABLE) (11/03/2023 16:00 EST) Blood VENOUS BLOOD / Unknown 11/03/2023 16:00 EST 11/04/2023 17:12 EST us Provider Outr Resulting Lab IMMUNOLOGY AND SEROL OGY ORDERABLES Final Result Performing Organization Address [facility] Co de Phone Number [facility] [address] [place] [address] documented in this encounter Visit Diagnoses Not on filedocumented in this encounter
--- OUTSIDE RECORDS SUMMARY | 2024-10-08 00:40 | XMS_ITS | Encounter Summary ---
Author Organization Formerly [facility] [address] Care Team Providers Care Cook Tortilla Name Role Phone Stephon Maciej ORTIZ Primary Care Provider [phone] Reason for Visit * Reason Comments Psoriasis Encounter Details Date Type Department Care Team (Late st Contact Info) Description 03/05/2012 5:15 PM EDT Office Visit Dermatology [address] [facility] [address] [place], [place] [phone] Prosper Schmidt MD [address] [place] [address], [facility] [place] [address] Psoriasis (Primary Dx) Social History Tobacco Use Types Packs/Day Years Used Date Smoking Tobacco: Never Sex and Gender Information Value Date Recorded Sex Assigned at Not on file Gender Identity Not on file Sexual Orientation Not on file documented as of this encounter Progress Notes * Prosper Schmidt MD - 03/05/2012 6:02 PM EDT Problem: Followup psoriasis, primarily inverse with some scalp involvement new onset. Ervin follows up and the triamcinolone has only really helped the groin involvement, not the cutaneous involvement of his psoriasis. Patient denies any history of hepatitis, yellow jaundice. He denies alcohol abuse. Physical examination reveals small guttate like plaques on the abdomen, larger plaques on the presacral back, and some small patchy areas on the arms. He still has patchy involvement in the scalp with some extension on the forehead. 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 a. Patient was unable to tolerate sulfasalazine. b. Discussed the option of methotrexate. I recommended that we begin 10 mg p.o. each week #20 dispensed with one refill. c. Called [facility] and ascertained that with the [facility] Patient Assistance program that this would run him 37.50 dollars per one month prescription. d. Patient must wait a week before he is paid and can afford to pick this up. e. Labs are covered for him at [facility]. Obtain methotrexate labs after one month of therapy. Return to clinic in one month for repeat check on April 02, 2012. f. May continue with triamcinolone 0.1% cream applying b.i.d. to affected areas for now. Copy: Maciej Szymanski D.O. documented in this encounter Plan of Treatment Upcoming Encounters Date Type Department Care Team (Late st Contact Info) Description 11/08/2024 3:30 PM EST Office Visit Dermatology at [address] [phone] Prosper Schmidt MD [address] [place] [address], [facility] [place] [address] 12/14/2024 2:40 PM EST Office Visit Cardiology at [address] [phone] Benjie Garrison MD [facility] [place] [address] documented as of this encounter Visit Diagnoses Diagnosis Psoriasis- Primary Other psoriasis documented in this encounter Care Teams Cook Tortilla Relationship Specialty Start Date End Date Maciej Szymanski DO [address] [facility] 1 [place] [address] PCP - General 09/18/10 09/30/22 documented as of this encounter
--- OUTSIDE RECORDS SUMMARY | 2024-10-08 00:40 | XMS_ITS | Encounter Summary ---
Author Organization [facility] [address] Care Team Providers Care Slate Trimmer Name Role Phone Maciej Szymanski DO Primary Care Provider Reason for Visit * Reason Comments Psoriasis Encounter Details Date Type Department Care Team (Late st Contact Info) Description 02/17/2012 5:15 PM EDT Office Visit Dermatology [address] [facility] [address] [place], [place] [phone] Prosper Schmidt MD [address] [place] [address], [facility] [place] [address] Psoriasis (Primary Dx) Social History Tobacco Use Types Packs/Day Years Used Date Smoking Tobacco: Never Sex and Gender Information Value Date Recorded Sex Assigned at Not on file Gender Identity Not on file Sexual Orientation Not on file documented as of this encounter Progress Notes * Prosper Schmidt MD - 02/17/2012 5:59 PM EDT Problem: 1. Followup psoriasis, primarily inverse, with some scalp involvement, new onset. 2. History of multiple follicular cysts of scrotum. Ervin follows up and has been doing much better. The scrotal inverse psoriatic involvement has cleared with the use of triamcinolone cream, and his scalp has improved with alternating use of the T/Bacilio and T/Gel shampoos. However, he is getting some new spots on his arms and torso. He has been using the triamcinolone cream on these on a b.i.d. basis. Physical examination reveals a pleasant 46-year-old gentleman who has guttate psoriasis now present on the chest and back and a few areas on the upper arms. He continues to have larger nickel to quarter-sized plaques in the scalp with some extension onto the forehead, although the involvement here has improved and lessened. Assessment and Plan: Psoriasis, inverse, but also now with guttate involvement on torso and upper arms. a. Begin trial of sulfasalazine 500 mg one p.o. b.i.d. on a full stomach for a week; #14 dispensed with zero refills. b. If tolerates well, then advance to two p.o. b.i.d.; #120 dispensed with one refill. Return to clinic in a month after repeat check. c. While the patient's allergies lists sulfa as an allergy, the patient states that he had stomach upset with sulfa, never a rash, hives, etc. Encouraged him to try the initial dosing of sulfasalazine. d. Continue triamcinolone 0.1% cream, applying b.i.d. to these areas. Return to clinic in 1-1/2 months for repeat check. Copy: Maciej Szymanski D.O. documented in this encounter Plan of Treatment Upcoming Encounters Date Type Department Care Team (Late st Contact Info) Description 11/08/2024 3:30 PM EST Office Visit Dermatology at [address] [phone] Prosper Schmidt MD [address] [place] [address] [place] [address] 12/14/2024 2:40 PM EST Office Visit Cardiology at [address] [phone] Benjie Garrison MD [facility] [place] [address] documented as of this encounter Visit Diagnoses Diagnosis Psoriasis- Primary Other psoriasis documented in this encounter Care Teams Slate Trimmer Relationship Specialty Start Date End Date Maciej Szymanski DO [address] [place] [address] [address] [facility] 1 [place] [address] PCP - General 09/18/10 09/30/22 documented as of this encounter
--- OUTSIDE RECORDS SUMMARY | 2024-10-08 00:40 | XMS_ITS | Encounter Summary ---
Author Organization [facility] Address [address] [place] [address] Care Team Providers Care Plaster Mechanic Name Role Phone Unknown, Provider Primary Care Provider Unava ilable Encounter Details Date Type Department Care Team (Latest Contact Info) Description 08/09/2015 15:14 EDT - 08/09/2015 23:59 EDT Hospital Encounter [address] [address] Unknown, Provider, Discharge Disposition: Home or Self [...] Code Departure Means Destination Home or Self Group Home documented in this encounter Plan of Treatment Not on file documented as of this encounter Visit Diagnoses Not on filedocumented in this encounter Care Teams Plaster Mechanic Relationship Specialty Start Date End Date Unknown, ProviderMD PCP - General 02/25/11 08/13/15 documented as of this encounter
--- OUTSIDE RECORDS SUMMARY | 2024-10-08 00:40 | XMS_ITS | Encounter Summary ---
Author Organization Formerly [facility], [facility] [place] [address] Care Team Providers Care Welding Technician Name Role Phone Maciej Szymanski DO Primary Care Provider Reason for Visit * Reason Comments Rash Encounter Details Date Type Department Care Team (Late st Contact Info) Description 01/23/2012 4:30 PM EDT Office Visit Dermatology [address] [place] [address] [address] [place], [place] [phone] Prosper Schmidt MD [address] [place] [address], [facility] [place] [address] Psoriasis (Primary Dx) Social History Tobacco Use Types Packs/Day Years Used Date Smoking Tobacco: Never Sex and Gender Information Value Date Recorded Sex Assigned at Not on file Gender Identity Not on file Sexual Orientation Not on file documented as of this encounter Progress Notes * Prosper Schmidt MD - 01/23/2012 6:06 PM EDT Problems: 1. Dry itchy rash in scrotum and perineum. 2. H/o multiple follicular cysts of scrotum. Ervin follows up after I last saw him for scrotal cyst excisions in August 2010. For the last month and a half he has had an itchy rash on the scrotum and on the glans penis and shaft of the penis, which has not responded to treatment with Diflucan or Lamisil cream. He was given clindamycin to use topically, but he chose not to use this because of its alcohol content and was concerned it would sting and burn. The patient states that his had the same kind of thing. He has also noticed some rash in between the cheeks of his buttocks, and he has had some dry areas on his scalp. He states that he bites his nails and that they, too, appear to be somewhat changed. Physical examination reveals a pleasant, 46-year-old who has localized scaling papules and patches throughout the scalp, primarily the more frontal parietal scalp. He also has psoriasiform erythema and scaling covering almost the entire scrotum, which is somewhat lichenified as well, but also involving the shaft of the penis and the glans penis in a psoriasiform pattern and sparing of areas of the glans penis itself. He has dystrophic changes of the fingernails without definitive pitting. It appears to be more than would just be inflicted by nail biting and may represent, in fact, psoriasiform dystrophy. On the first, third, and fifth toenails of his left foot, he has subungual hyperkeratotic debris and distal onycholysis consistent with tinea unguium. The second and the fourth toes are not involved, nor are any of the toes of his right foot. Assessment and Plan: Psoriasis, primarily inverse but with fingernail and some scalp involvement. a. Reassured the patient that it is not contagious, and I do not believe he developed it or picked it up from his . b. The patient is not aware of any family history of psoriasis. c. Recommended that we begin triamcinolone 0.1% cream, applying this on a b.i.d. basis to affected areas in the groin area until these improve, and then just use once daily; 60 grams dispensed with one refill. d. For scalp involvement, I recommended using T-Bacilio shampoo three times weekly when he shampoos his hair, and after two weeks then switch to T-Gel shampoo using it in a similar fashion. Rinse out shampoo lather after three minutes to allow some prolonged contact of the lather with the scalp. e. Recommended I see him again in another three weeks for repeat check. Copy: Maciej Szymanski D.O. documented in this encounter Plan of Treatment Upcoming Encounters Date Type Department Care Team (Late st Contact Info) Description 11/08/2024 3:30 PM EST Office Visit Dermatology at [address] [place] [phone] Prosper Schmidt MD [address] [facility] DER[facility]OLOGY [place], [place] [id number] 12/14/2024 2:40 PM EST Office Visit Cardiology at [address] [phone] Benjie Garrison MD [facility] [place] [address] documented as of this encounter Visit Diagnoses Diagnosis Psoriasis- Primary Other psoriasis documented in this encounter Care Teams Welding Technician Relationship Specialty Start Date End Date Maciej Szymanski DO [address] [facility] [facility] [address] [facility] 1 [place] [address] PCP - General 09/18/10 09/30/22 documented as of this encounter
--- OUTSIDE RECORDS SUMMARY | 2024-10-08 00:40 | XMS_ITS | Encounter Summary ---
Author Organization [facility] [place] [address] Care Team Providers Care Defense Attorney Name Role Phone Maciej Szymanski DO Primary Care Provider Reason for Visit * Reason Comments Follow-up Encounter Details Date Type Department Care Team (Late st Contact Info) Description 02/18/2013 4:15 PM EDT Office Visit Dermatology [address] [facility] [address] [place], [place] [phone] Prosper Schmidt MD [address] [place] [address], [facility] [place] [address] Psoriasis (Primary Dx); Verruca vulgaris Social History [...] Progress Notes * Prosper Schmidt MD - 02/18/2013 4:44 PM EDT Problem: Three-week followup. Ervin follows up and is still tapering down on the methotrexate. His psoriasis remains fairly quiescent, although he noted a couple new spots on his back. He still has the warts, two on the left second finger. Physical examination confirms two verrucae, although they are now quite small, present still on the left second finger laterally. Most of the plaque on the right flank is cleared, but the anterior and posterior aspects are still present slightly, and he has two small guttate lesions on his lower back and a new one on the abdomen. Assessment and Plan: 1. Verrucae vulgaris, left second finger. a. LN2 times three applied to sites. b. Return to the clinic in two to three weeks for repeat check. 2. Psoriasis. a. Continue to try to taper methotrexate down and off. b. May use triamcinolone topical for areas of involvement, and discussed option of getting a little bit of sun to help his psoriasis. c. If he begins again to flare off the methotrexate, we will discuss the option of resuming this. It certainly did work well for him. Copy: Maciej Szymanski D.O. documented in this encounter Plan of Treatment Upcoming Encounters Date Type Department Care Team (Late st Contact Info) Description 11/08/2024 3:30 PM EST Office Visit Dermatology at [address] [phone] Prosper Schmidt MD [address] [place] [address], [facility] [place] [address] 12/14/2024 2:40 PM EST Office Visit Cardiology at [address] [phone] Benjie Garrison MD [facility] [place] [address] documented as of this encounter Visit Diagnoses Diagnosis Psoriasis- Primary Other psoriasis Verruca vulgaris Viral warts, unspecified documented in this encounter Care Teams Defense Attorney Relationship Specialty Start Date End Date Maciej Szymanski DO [address] [facility] 1 [place] [address] PCP - General 09/18/10 09/30/22 documented as of this encounter
--- OUTSIDE RECORDS SUMMARY | 2024-10-08 00:40 | XMS_ITS | Encounter Summary ---
Author Organization [facility] Address [facility] [place] [address] Care Team Providers Care Pc Technician Name Role Phone Stephon Maciej ORTIZ Primary Care Provider Encounter Details Date Type Department Care Team (Latest Contact Info) Description 09/21/2012 11:36 AM EST - 09/21/2012 3:18 PM EST Hospital En[place] [address] Raheel Pinto MD [facility] [place] [address] Discharge Disposition: Home Social History Tobacco Use [...] Sign Reading Time Taken Comments Blood Pressure 107/79 09/21/2012 1:30 PM EST Pulse 93 09/21/2012 1:30 PM EST Temperature - - Respiratory Rate 16 09/21/2012 1:30 PM EST Oxygen Saturation 98% 09/21/2012 1:30 PM EST Inhaled Oxygen Concentration - - Weight - - Height - - Body Mass Index - - documented in this encounter Discharge Instructions * Discharge Instructions* Oksana Hayden RN - 09/21/2012 1:21 PM EST UPPER GI ENDOSCOPY WHAT TO EXPECT AFTER THE PROCEDURE After the test you may feel a little more gassy or bloated than usual. This is normal. ACTIVITY After the test you were observed and monitored until it was safe to go home ( the recovery period). You may still need to rest after you go home. Change from one position to the next slowly following the procedure ( lay to sit, sit to stand) Youmay lose your balance unexpectedly Be careful on stairs, as you may be unsteady on your feet. You should be able to return to your activities the day after the test. Diet You may eat small portions of foods that ordinarily will not upset your stomach. Be gentle with what you choose to start with. Drink plenty of fluids ( unless otherwise told not to) Medications You may have a mild sore throat. Ice chips, popsicles, over the counter throat lozenges or spray may help numb your throat. This procedure should not cause a fever. Other Instructions You may have received medications before and/during the procedure which effects your judgement, reaction time and decision making ability. FOR THE NEXT 24 HRS ?? DO NOT DRIVE OR OPERATE ANY MACHINERY ?? DO NOT DRINK ALCOHOLIC BEVERAGES ?? If you are a smoker: DO NOT SMOKE WHILE YOU ARE ALONE ?? DO NOT SIGN LEGAL DOCUMENTS or make important decisions The IV SITE may get red or tender this is normal. You may use warm compresses 20 minutes at a time on and off for the next day or so. If the tenderness +/or redness increases or foul drainage and a red streak occurs, please contact your PCP immediately. Follow-up care is a nicholson part of your treatment and safety. Be sure to make and go to all appointments, and call your doctor if you are having problems. WHEN SHOULD YOU CALL FOR HELP? Call 911 anytime you think that you need emergency care. For example, call if: You passed out (lost consciousness). You cough up blood. You vomit blood or what looks like coffee grounds. You pass maroon or very bloody stools. Call your doctor now or seek immediate medical attention if: You have trouble swallowing. You have belly pain. Your stools are black or tarlike or have streaks of blood. You are sick to your stomach or cannot keep fluids down. Watch closely for changes in your health, and be sure to contact your doctor IF Your throat still hurts after a day or two You do not get better as expected. [facility] [phone] 8a-5p Same Day Endo [phone] 7a-8p Otherwise contact [phone] and ask to speak to the boat hop fashion merchandiser Instructions have been reviewed and patient expresses understanding * Patient Instructions* Raheel Pinto MD - 09/21/2012 1:19 PM EST Please see Recommendations in the Provation procedure report which is documented in the procedural note in [facility]. documented in this encounter Medications at Time of Discharge Medication Sig Dispensed Refills Start Date End Date loratadine (CLARITIN) 10 mg tablet Take 10 mg by mouth as needed. omeprazole (PRILOSEC) 20 mg capsule Take 1 capsule by mouth 2 times daily. 60 capsule 12 09/21/2012 methotrexate 2.5 mg tablet Take 20 mg by mouth once a week. 6 tabs qwk 11/11/2014 metFORMIN (GLUCOPHAGE) 500 mg tablet Take 1,000 mg by mouth 2 times daily (with meals). 08/24/2013 multivitamin (THERAGRAN) tablet Take 1 tablet by mouth daily. 11/20/2015 glipiZIDE (GLUCOTROL) 5 mg tablet Take 5 mg by mouth 2 times daily (before meals). 08/24/2013 documented as of this encounter Progress Notes * Oksana Hayden RN - 09/21/2012 1:[address] Pinto in to explain findings and plan. 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 No segmental bxs to assess for dysplasia at the time Patient Active Problem List Diagnoses Code ??? Psoriasis 696.1U EXAM: HEENT: Airway examined, oropharynx clear LUNGS: Clear to auscultation HEART: Regular rate and rhythm, normal S1, S2 ABDOMEN: Normal bowel sounds, soft, non tender, non distended, A/P Proceed with the planned endoscopic procedure. Risks and benefits of the procedure explained to the patient. Consent signed. documented in this encounter Miscellaneous Notes * Miscellaneous - Provider, Scanning - 09/21/2012 10:17 PM EST * Miscellaneous - Provider, Scanning - 09/21/2012 10:11 PM EST * Miscellaneous - Provider, Scanning - 09/21/2012 1:20 PM EST * Op Note - Raheel Pinto MD - 09/21/2012 1:14 PM EST [facility]ative Note Patient Name: Ervin Helms : [id number] MR#: [id number] Case Date: 09/21/2012 Surgeon: Surgeon(s) and Role: * RAHEEL PINTO MD - Primary Preoperative diagnosis: du's esophagus ? cryo Postoperative diagnosis: * No post-op diagnosis entered * Procedure(s): UPPER GI ENDOSCOPY UPPER GASTROINTESTINAL ENDOSCOPY,WITH BIOPSY SINGLE OR MULTIPLE Full procedure note is documented under the Procedure section of eD. documented in this encounter Plan of Treatment Upcoming Encounters Date Type Department Care Team (Late st Contact Info) Description 11/08/2024 3:30 PM EST Office Visit Dermatology at [place] [address] [facility] [place] [address] Prosper Schmidt MD [address] [facility], [place] [address] 12/14/2024 2:40 PM EST Office Visit Cardiology at [address] [place] [address] Benjie Garrison MD [facility] [address] documented as of this encounter Procedures Procedure Name Priority Date/Time Associated Diagnosis Comments SURGICAL PATHOLOGY REPORT Routine 09/21/2012 4:01 PM EST SPECIMEN TO PATHOLOGY Routine 09/21/2012 1:16 PM EST UPPER GASTROINTESTINAL ENDOSCOPY,WITH BIOPSY SINGLE OR MULTIPLE (WRVU 2.39) 09/21/2012 12:57 PM EST du's esophagus ? cryo UPPER GI ENDOSCOPY 09/21/2012 12 :57 PM EST du's esophagus ? cryo UPPER GI ENDOSCOPY Routine 09/21/2012 12 :54 PM EST documented in this encounter Results * SURGICAL PATHOLOGY REPORT (09/21/2012 4:01 PM EST) Surgical Pathology Report ? [facility] ? Provider: ?? RAHEEL PINTO ?Pt. Name: ?? ERVIN HELMS ? Acc #: ?[id number] ?Pt. ? Col Date: ?? 09/21/2012 ?/Sex: ?1965,(46 years),Male ? Rec Date: ?? 09/21/2012 ?LOC: ?4T ? SURGICAL PATHOLOGY ? ---Pathologic Diagnosis--- ? 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 No dysplasia is seen. ? CR-0 ? 09/22/12 ? AAS ? 09/22/12 Verified by: ? Tristin SAENZ, Tami Hawthorne ? Pathologist ? (Electronic Signature) ? The attending pathologist whose signature appears on this report has ? reviewed all diagnostic slides and has edited the gross and/or ? microscopic portion of the report in rendering the final pathologic ? diagnosis. ? ---Microscopic Description--- ? Slides reviewed, microscopic description not recorded. ? ---Gross Description--- ? Labeled/Fixativ e: ? BX lower esophagus from 34 to 36 cm, formalin. ? Qty/Size/Weight : ?Multiple, averaging 0.3 x 0.2 x 0.2 cm. ? Tissue Description: ?? Wispy, friable fragments of crawford, focally hemorrhagic ? soft tissue. ? Sections/Proces sing: ??(T2) ??aje/PPS ? ---Clinical Information--- ? Specimen Submitted: ? A - BX lower esophagus from 34-36 cm ? Clinical History/Diagnos is: ? Du's R/O dysplasia ANEUDY HOLBROOK 09/21/2012 4:01 PM EST Raheel Pinto MD PATHOLOGY/CYTOLOGY O RDERAJOEL Performing Organization Address City/State/[facility] Co de Phone Number ANEUDY HOLBROOK * Specimen to Pathology (surgical or derm) (09/21/2012 1:16 PM EST) AP Specimen 09/21/2012 1:16 PM EST 09/21/2012 1:16 PM EST Narrative ANEUDY ANGULOIUM - 09/21/2012 1:16 PM EST Specimen requisition ordered. ??Separate Pathology report to follow Raheel Pinto MD PATHOLOGY/CYTOLOGY Erika BUSTAMANTE ANEUDY HOLBROOK * UPPER GI ENDOSCOPY (09/21/2012 12:54 PM EST) UPPER GI ENDOSCOPY [facility] Patient Name: Ervin Helms ? Procedure Date: 09/21/2012 12:54 PM ? N: [id number] ? Date of : 1965 ? Age: 46 ? Order #: [id number] ? Procedure: ? Upper GI endoscopy Indications: ? Follow-up of Du's esophagus Providers: ? Raheel Pinto MD, Miguel Gilbert ? NEMO Banks, Claribel Allred, ? Narrow Gauge Brakeman Referring : ?Maciej Szymanski, DO Medicines: ? Monitored Anesthesia Care Complications: ? No immediate complications. Procedure: ? Pre-Anesthesia Assessment: ? - Prior to the procedure, a History ? and Physical was performed, and ? patient medications, allergies and ? sensitivities have been reviewed. The ? patient's tolerance of previous ? anesthesia has been reviewed. ? - The risks and benefits of the ? procedure and the sedation options ? and risks were discussed with the ? patient. All questions were answered ? and informed consent was obtained. ? - ASA Grade Assessment: II - A ? patient with mild systemic disease. ? The procedure, indications, benefits, [...] ? tolerated the procedure well. The ? patient tolerated the procedure well. ? Findings: ? Du's esophagus was present, extending from the ? upper extent of the gastric folds which were at 36 cm ? from the incisors to the Z-line which was at 34 cm ? from the incisors. Linear erosion was present at 34 ? cm and a smaller linear erosion at 35 cm. Biopsies ? were taken with a cold forceps for histology. A ? medium-sized hiatus hernia was found. The proximal ? extent of the gastric folds (end of tubular ? esophagus) was 36 cm from the incisors. The hiatal ? narrowing was 40 cm from the incisors. Otherwise ? normal stomach including retroflex view of cardia and ? fundus.The examined duodenum was normal. ? Impression: ?- Du's esophagus associated with ? erosions/esophagi tis. ? - Hiatus hernia. ? - Normal examined duodenum. Recommendation: ?- Await pathology results. ? - Increase PPI to twice daily. ? - Repeat the upper endoscopy in 2-3 ? years for surveillance based on ? pathology results. ? __ Raheel Pinto MD 09/21/2012 1:18 PM This report has been signed electronically. Number of Addenda: 0 Note Initiated On: 09/21/2012 12:54 PM PROVATION 09/21/2012 12:5 4 PM EST Maciej Szymanski DO GENERAL SURGICAL O RDERABLES PROVATION documented in this encounter Visit Diagnoses Not on filedocumented in this encounter Administered Medications Inactive Administered Medications - up to 3 most recent administrations Medication Order MAR Action Action Date Dose Rate Site lactated ringers infusion 50 mL/hr, Intravenous, CONTINUOUS, Starting on Fri09/21/12 at 1300, Until Fri09/21/12 at 1718, Endoscopy (Day of Procedure) New Bag 09/21/2012 1:00 PM EST 50 mL/hr 50 mL/hr documented in this encounter Active and Recently Administered Medications Times are shown in EST. Continuous Medication Order 09/19/2012 09/20/2012 09/21/2012 lactated ringers infusion (CANCELED) 50 mL/hr, Intravenous, CONTINUOUS, Starting on Fri09/21/12 at 1300, Until Fri09/21/12 at 1718, Endoscopy (Day of Procedure) 1300 (New Bag - Prov ider: Wellington Guerrero RN) documented in this encounter Care Teams Pc Technician Relationship Specialty Start Date End Date Maciej Szymanski DO [address] [place] [address] PCP - General 09/18/10 09/30/22 documented as of this encounter
--- OUTSIDE RECORDS SUMMARY | 2024-10-08 00:40 | XMS_ITS | Encounter Summary ---
Author Organization [facility] [place] [address] Care Team Providers Care Projection Engineer Name Role Phone Maciej zSymanski DO Primary Care Provider Reason for Visit * Reason Comments Follow-up Encounter Details Date Type Department Care Team (Late st Contact Info) Description 03/18/2014 4:30 PM EDT Office Visit Dermatology at [address] [place] [address] Prosper Schmidt MD [address] [place] [address] Psoriasis (Primary Dx) Social History Tobacco Use [...] * Patient Instructions* Tanja Townsend, MELISSA - 03/18/2014 4:36 PM EDT Images from the original note were not included. [facility] Psoriasis: After Your Visit Your Care Instructions Psoriasis (say lqc-AN-ho-noble) is a long-term skin problem that causes [...] still damp. This seals in moisture. Use cebx-ofr-klxxlhf products that your doctor suggests. These may [...] more? Visit our health information library at [email or web address] You can also view health information on [employer], your personal patient account. Log in or sign up today. Enter U759 in the search box to learn more about Psoriasis: After Your Visit. ?? [id number] [employer]. Care instructions adapted under license by [facility]. This care instruction is for use with your licensed healthcare professional. If you have questions about a medical condition or this instruction, always ask your healthcare professional. [employer]wise, [employer] disclaims any warranty or liability for your use of this information. Content Version: 9.9.567893; Last Revised: June 01, 2013 documented in this encounter Progress Notes * Prosper Schmidt MD - 03/18/2014 5:03 PM EDT Problem: Followup of psoriasis. Ervin follows up and is been doing reasonably well. He has a little bit in the left scalp and a little patch on the right flank. Otherwise, he is pretty much clear. Occasionally, he will have mild flares in the groin area and he will use his topical corticosteroid creams, triamcinolone to get things under control and then just go back to relying on the methotrexate. Patient will be seeing Rheumatology to help sort through his arthritic symptoms and suggest perhaps a more effective therapy than the methotrexate/Aleve combination, which has really only been partially successful for him. Physical examination today reveals that on 15 mg of methotrexate a week instead of 10 he really has not had much improvement. He continues to have a patch above his left ear and tip of scalp, one site on the right flank, and is still getting intermittent intertriginous involvement in the groin area. Assessment and Plan: 1. Psoriasis. a. Continue methotrexate at the current dosing, 15 mg p.o. q. week. Today, #90 were called in to his [facility] in [facility] for a three month supply with zero refills. Take six of the 2.5 mg p.o. q. week. b. Continue to take folate 1 mg p.o. q. day every day, except the day of his methotrexate dosing. He was given a one year supply back in June. c. May use triamcinolone cream b.i.d. p.r.n. for mild flares in the groin. d. Today, offered the patient the option of intralesional Kenalog injection to right flank site, and he accepted this; 1 mL of 5 mg/mL Kenalog was injected to the affected 2 cm right flank plaque. e. He has not had labs done yet, but he will get them done tomorrow at [facility]. Return to clinic in three months for repeat check. COPY: Maciej Szymanski D.O. documented in this encounter Plan of Treatment Upcoming Encounters Date Type Department Care Team (Late st Contact Info) Description 11/08/2024 3:30 PM EST Office Visit Dermatology at [address] [place] [address] Prosper Schmidt MD [address] [facility], [address] A DERMATOLOGY [place], [place] [id number] 12/14/2024 2:40 PM EST Office Visit Cardiology at [address] [place] [address] Benjie Garrison MD [facility] [place] [address] documented as of this encounter Visit Diagnoses Diagnosis Psoriasis- Primary Other psoriasis documented in this encounter Care Teams Projection Engineer Relationship Specialty Start Date End Date Maciej Szymanski DO [address] [facility] [place] [address] PCP - General 09/18/10 09/30/22 documented as of this encounter
--- OUTSIDE RECORDS SUMMARY | 2024-10-08 00:40 | XMS_ITS | Encounter Summary ---
Author Organization [facility] Address [facility] [place] [address] Care Team Providers Care Actuary Name Role Phone Unavailable Primary Care Provider Unavailabl e Encounter Details Date Type Department Care Team (Late st Contact Info) Description 09/03/2010 11:30 AM EST Office Visit Dermatology [address] [facility] [address] [place] [address] Prosper Schmidt MD [address] [place] [address], [facility] DERMATOLOGY [place], [place] [id number] Social History Tobacco Use Types Packs/Day Years [...] PM EST Office Visit Dermatology at [address] [address] Prosper Schmidt MD [address] [place] [address], [facility] DERMATOLOGY [place], [place] [id number] 12/14/2024 2:40 PM EST Office Visit Cardiology at [address] [address] Benjie Garrison MD [facility] [place] [address] documented as of this encounter Visit Diagnoses Not on filedocumented in this encounter
--- OUTSIDE RECORDS SUMMARY | 2024-10-08 00:40 | XMS_ITS | Encounter Summary ---
Author Organization [facility] Address [facility] [place] [address] Care Team Providers Care Aircraft Launch And Recovery Technician Name Role Phone Maciej Szymanski DO Primary Care Provider Reason for Visit * Reason Comments Follow-up Encounter Details Date Type Department Care Team (Late st Contact Info) Description 09/16/2013 4:50 PM EST Office Visit Dermatology at [address] [phone] Prosper Schmidt MD [address] [place] [address], [facility] [place] [address] Psoriasis (Primary Dx) Social History Tobacco Use [...] Progress Notes * Prosper Schmidt MD - 09/16/2013 5:26 PM EST Problem is: 1. Followup psoriasis. 2. Followup verruca vulgaris. Ervin follows up, and he was able to get rid of his wart with the 40% salicylic acid plaster. He has been out of methotrexate for two weeks but is pleased to say that he totally cleared. Physical examination confirms that his wart is gone, and his psoriasis remains entirely clear on his scalp, his torso. Assessment and Plan: Psoriasis. a. Recommend that we resume methotrexate at a lower dosing, instead of 15 now just 10 mg p.o. q.week. Today #20 were given with two refills for a three month supply. b. Continue to take folic acid 1 mg one p.o. q.day every day except for the day of the methotrexate dosing. He was given a one year supply back in June. c. Labs from July were within normal limits. Repeat again three months from now just prior to that visit. Standing order labs were given to patient to be dropped off at [facility] lab. Return to clinic here in three months. COPY: Maciej Szymanski D.O. documented in this encounter Plan of Treatment Upcoming Encounters Date Type Department Care Team (Late st Contact Info) Description 11/08/2024 3:30 PM EST Office Visit Dermatology at [address] [phone] Prosper Schmidt MD [address] [place] [address], [facility] [place] [address] 12/14/2024 2:40 PM EST Office Visit Cardiology at [address] [phone] Benjie Garrison MD [facility] [place] [address] documented as of this encounter Visit Diagnoses Diagnosis Psoriasis- Primary Other psoriasis documented in this encounter Care Teams Aircraft Launch And Recovery Technician Relationship Specialty Start Date End Date Maciej Szymanski DO [address] [facility] 1 [place] [address] PCP - General 09/18/10 09/30/22 documented as of this encounter
--- OUTSIDE RECORDS SUMMARY | 2024-10-08 00:40 | XMS_ITS | Encounter Summary ---
Author Organization [facility] [place] [address] Care Team Providers Care Voice Data Communications Engineer Name Role Phone Maciej Szymanski DO Primary Care Provider Reason for Visit * Reason Comments Follow-up skin check Encounter Details Date Type Department Care Team (Late st Contact Info) Description 04/02/2013 3:45 PM EDT Office Visit Dermatology [address] [facility] [address] [place], [place] [phone] Prosper Schmidt MD [address] [place] [address], [facility] [place] [address] Psoriasis (Primary Dx); Verruca vulgaris Social History [...] Progress Notes * Prosper Schmidt MD - 04/02/2013 4:13 PM EDT Problem: Followup of verrucae vulgaris and psoriasis. Ervin follows up and still has a little of a wart present on the left third finger. Unfortunately, off of methotrexate, his psoriasis is definitely worsening. Physical examination reveals minimal verruca tissue on the left third finger laterally. He still has fairly significant scaling and erythema of the scalp extending onto the frontal forehead. He has a number of small guttate and large patch plaques present on the stomach and back and arms. Assessment and Plan: 1. Psoriasis, worsening off of his methotrexate. a. Resume methotrexate, taking six of the 2.5 mg tablets p.o. q. week, for 15 mg total, #30 dispensed with two refills. b. Recommended that patient begin also folate 1 mg p.o. q. day every day of the week, except when he takes the methotrexate, #90 dispensed for a three month supply with three refills. c. Check methotrexate labs again in three months. d. Return to clinic in three months for repeat check. 2. Verruca vulgaris, left third finger. a. LN2 times four applied to single remaining site. b. Return to clinic sooner if this does not bring resolution, but I suspect today's treatment should be definitive. COPY: Maciej Szymanski D.O. documented in this encounter Plan of Treatment Upcoming Encounters Date Type Department Care Team (Late st Contact Info) Description 11/08/2024 3:30 PM EST Office Visit Dermatology at [address] [phone] Prosper Schmidt MD [address] [place] [address], [facility] [place] [address] 12/14/2024 2:40 PM EST Office Visit Cardiology at [address] [phone] Benjie Garrison MD [facility] [place] [address] documented as of this encounter Visit Diagnoses Diagnosis Psoriasis- Primary Other psoriasis Verruca vulgaris Viral warts, unspecified documented in this encounter Care Teams Voice Data Communications Engineer Relationship Specialty Start Date End Date Maciej Szymanski DO [address] [address] PCP - General 09/18/10 09/30/22 documented as of this encounter
--- OUTSIDE RECORDS SUMMARY | 2024-10-08 00:40 | XMS_ITS | Encounter Summary ---
Author Organization [facility] Address [facility] [place] [address] Care Team Providers Care Jailor Name Role Phone Stephon Maciej ORTIZ Primary Care Provider Encounter Details Date Type Department Care Team (Late st Contact Info) Description 09/21/2012 1:00 PM EST - 09/21/2012 2:00 PM EST Surgery [place] [address] Raheel Pinto MD [facility] [place] [address] UPPER GI ENDOSCOPY Social History Tobacco Use Types Packs/Day Years [...] not get better as expected. Friday-Friday Clinic [phone] 8a-5p Same Day Endo [phone]-8p Otherwise contact [phone] and ask to speak to the operations agent stone cutter Instructions have been reviewed and patient expresses [...] Pinto MD - 09/21/2012 1:14 PM EST [facility] Patient Name: Ervin Helms : [id number] MR#: [id number] Case Date: 09/21/2012 Surgeon: Surgeon(s) and Role: [...] 3:30 PM EST Office Visit Dermatology at [place] [address] [facility] [place] [address] Prosper Schmidt MD [address] [facility], [place] [address] 12/14/2024 2:40 PM EST Office Visit Cardiology at [address] [place] [address] Benjie Garrison MD [facility] [place] [address] documented as of this encounter Procedures Procedure [...] 4:01 PM EST) Surgical Pathology Report ? [facility] ? Provider: ?? RAHEEL PINTO ?Pt. Name: ?? ERVIN HELMS ? Acc #: ?[id number] ?Pt. ? Col Date: ?? 09/21/2012 ?/Sex: ?1965,(46 years),Male ? Rec Date: ?? 09/21/2012 ?LOC: ?4T ? SURGICAL PATHOLOGY ? ---Pathologic Diagnosis--- ? 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 No dysplasia is seen. ? CR-0 ? 11/27/12 ? AAS ? 09/22/12 Verified by: ? [...] PM EST Raheel Pinto MD PATHOLOGY/CYTOLOGY O ROBBY Performing Organization Address City/State/[facility] Co de Phone Number ANEUDY HOLBROOK * Specimen to Pathology (surgical or derm) (09/21/2012 1:16 PM EST) AP Specimen 09/21/2012 1:16 PM EST 09/21/2012 1:16 PM EST Narrative ANEUDY ANGULOIUM - 09/21/2012 1:16 PM EST Specimen requisition ordered. ??Separate Pathology report to follow Raheel Pinto MD PATHOLOGY/CYTOLOGY O ROBBY ANEUDY HOLBROOK * UPPER GI ENDOSCOPY (09/21/2012 12:54 PM EST) UPPER GI ENDOSCOPY [facility] Endoscopy Patient Name: Ervin Griffithby ? Procedure Date: 09/21/2012 12:54 PM ? N: [id number] ? Date of : 1965 ? Age: 46 ? Order #: [id number] ? Procedure: ? Upper GI endoscopy Indications: ? Follow-up of Du's esophagus Providers: ? Raheel Pinto MD, Miguel Gilbert ? , NEMO, Claribel Allred, ? As400 Administrator Referring : ?Maciej Szymanski, DO Medicines: ? [...] RN) documented in this encounter Care Teams Jailor Relationship Specialty Start Date End Date Maciej Szymanski DO [address] [place] [address] PCP - General 09/18/10 09/30/22 documented as of this encounter
--- OUTSIDE RECORDS SUMMARY | 2024-10-08 00:40 | XMS_ITS | Encounter Summary ---
Author Organization [facility] [place] [address] Care Team Providers Care Fishing Guide Name Role Phone Maciej Szymanski DO Primary Care Provider Reason for Visit * Reason Comments Follow-up Encounter Details Date Type Department Care Team (Late st Contact Info) Description 12/17/2013 4:30 PM EST Office Visit Dermatology at [address] [phone] Prosper Schmidt MD [address] [place] [address], [facility] [place] [address] Psoriasis (Primary Dx) Social History Tobacco Use [...] Progress Notes * Prosper Schmidt MD - 12/17/2013 4:51 PM EST Problem: Followup of psoriasis. Ervin follows up and is doing well. Patient does have psoriatic arthritis involving his knees, left and right, and his left ankle. He also has had some childhood trauma to his right knee, which has further exacerbated that knee's symptoms. Taking Aleve once or twice a day, along with methotrexate, is adequate to keep him quite comfortable. Physical examination reveals that on 10 mg of methotrexate a week, instead of 15, he has a new patch plaque above and in front of his left ear in the temporal scalp, a little bit on his right flank, and he is getting intermittent intertriginous involvement in the groin area. Assessment and Plan: 1. Psoriasis. a. Recommend that we advanced methotrexate from current dosing of 10 to 15 mg p.o. q. week. Today, #90 were given for a three month supply with zero refills. b. Continue to take folate 1 mg p.o. q. day every day, except the day of methotrexate dosing. He was given a one year's supply back in June. c. Patient forgot to get his labs prior to today's visit, but he will get them tomorrow. He has a standing order for labs at [facility]. d. Return to clinic here in three months. COPY: Maciej Szymanski D.O. documented in this encounter Plan of Treatment Upcoming Encounters Date Type Department Care Team (Late st Contact Info) Description 11/08/2024 3:30 PM EST Office Visit Dermatology at [address] [phone] Prosper Schmidt MD [address] [place] [address], [facility] [place] [address] 12/14/2024 2:40 PM EST Office Visit Cardiology at [address] [phone] Benjie Garrison MD [facility] [place] [address] documented as of this encounter Visit Diagnoses Diagnosis Psoriasis- Primary Other psoriasis documented in this encounter Care Teams Fishing Guide Relationship Specialty Start Date End Date Maciej Szymanski DO [address] [facility] 1 [place] [address] PCP - General 09/18/10 09/30/22 documented as of this encounter
--- OUTSIDE RECORDS SUMMARY | 2024-10-08 00:40 | XMS_ITS | Encounter Summary ---
Author Organization [facility] Address [facility] [place] [address] Care Team Providers Care Citrix Architect Name Role Phone StephonMaciej hunter Primary Care Provider [phone] Encounter Details Date Type Department Care Team (Late st Contact Info) Description 09/21/2012 12:57 PM EST Anesthesia [place] [address] Nelly Kapadia MD [facility] [place] [address] Radha Langston CRNA [facility] [place] [address] Anesthesia Record Procedure Summary Procedure Name Responsible Anesthesiologist Anesthesia Start Time Anesthesia Stop Time UPPER GI ENDOSCOPY (Trunk) Nelly Kapadia MD 09/21/12 1257 09/21/12 1315 Events Date Time Event Comment 09/21/2012 1248 1257 Start 1315 Stop Meds * Agents No agents on file. * Blood No blood administrations on file. Lines, Drains, and Airways Type Details Placement Removal (RETIRED) Peripheral IV Line - Single Lumen 09/21/12; 1248; 09/21/12; 1352 09/21/12 1248 by Wellington Guerrero RN 09/21/12 1352 by Oksana Hayden documented in this encounter Social History Tobacco [...] OR Notes * Anesthesia Postprocedure Evaluation - Nelly Kapadia MD - 09/21/2012 1:39 PM EST Patient: Ervin Helms Procedure(s) Performed: Procedure(s): UPPER GI ENDOSCOPY UPPER GASTROINTESTINAL ENDOSCOPY,WITH BIOPSY SINGLE OR MULTIPLE Patient location: PACU Post-op pain: Adequate analgesia Post-op nausea: no nausea or vomiting Last Vitals: Filed Vitals: 09/21/12 1330 BP: 107/79 Pulse: 93 Resp: 16 Post-op cardiovascular and respiratory status: is stable Level of consciousness: awake, alert and oriented Complications: no apparent complications, tolerated the procedure well and no evidence of recall Fluid Status: normal * Anesthesia Preprocedure Evaluation - Nelly Kapadia MD - 09/21/2012 12:46 PM EST Today I evaluated Ervin Helms a 46 y.o. male. Procedure(s): UPPER GI ENDOSCOPY Patient Active Problem List Diagnoses ??? Psoriasis No past medical history on file. No past surgical history on file. History Substance Use Topics ??? Smoking status: Never Smoker ??? Smokeless tobacco: Not on file ??? Alcohol Use: Not on file Allergies Allergen Reactions ??? Sulfa (Sulfonamide Antibiotics) Medications: MAR and/or home medications have been reviewed. Physical Exam: There were no vitals filed for this visit. There is no height or weight on file to calculate BMI. Airway Assessment: Mallampati: II TM distance: >3 FB Neck ROM: full Cardiovascular Assessment: Rate: normal Pulmonary Assessment: breath sounds clear to auscultation Dental Assessment: - normal exam Misc Assessment: Anesthesia Plan: ASA 2 MAC with intravenous induction 46 yo nonsmoker with Type 2 DM and prior history of Huang's esophagitis presents for EGD. Discussed risks/benefits MAC with GA back up. Informed Consent: Anesthetic plan and risks discussed with patient and spouse. Plan discussed with HALL MANAGER. Rolac. Assessment: documented in this encounter Miscellaneous Notes * Addendum Note - Mariam Bloom - 09/22/2012 10:06 AM EST Addendum created 09/22/12 1006 by Mariam Bloom Modules edited:Anesthesia Events, Anesthesia Responsible Staff documented in this encounter Plan of Treatment Upcoming Encounters Date Type Department Care Team (Late st Contact Info) Description 11/08/2024 3:30 PM EST Office Visit Dermatology at [address] [phone] Prosper Schmidt MD [address] [facility], [facility] [place] [address] 12/14/2024 2:40 PM EST Office Visit Cardiology at [address] [phone] Benjie Garrison MD [facility] [place] [address] documented as of this encounter Visit Diagnoses Not on filedocumented in this encounter Care Teams Citrix Architect Relationship Specialty Start Date End Date Maciej Szymanski DO [address] [facility] 1 [place] [address] PCP - General 09/18/10 09/30/22 documented as of this encounter
--- OUTSIDE RECORDS SUMMARY | 2024-10-08 00:40 | XMS_ITS | Encounter Summary ---
Author Organization [facility] [place] [address] Care Team Providers Care Platen Drier Operator Name Role Phone Ermias Teague APRN Primary Care Provider [phone] Reason for Visit * Reason Comments Medication Refill Encounter Details Date Type Department Care Team (Late Contact Info) Description 05/10/2014 Refill Dermatology at [address] [phone] Prosper Schmidt MD [address] [place] [address], [facility] [place] [address] Social History Tobacco Use Types Packs/Day Years [...] PM EST Office Visit Dermatology at [address] [phone] Prosper Schmidt MD [address] [place] [address], [facility] [place] [address] 12/14/2024 2:40 PM EST Office Visit Cardiology at [address] [place] [address] Benjie Garrison MD [facility] [place] [address] documented as of this encounter Visit Diagnoses Not on filedocumented in this encounter Care Teams Platen Drier Operator Relationship Specialty Start Date End Date Ermias Teague, PETRA [address] [place] [address] PCP - General Family Medicine 10/01/22 documented as of this encounter
--- OUTSIDE RECORDS SUMMARY | 2024-10-08 00:40 | XMS_ITS | Encounter Summary ---
Author Organization [facility] [place] [address] Care Team Providers Care Psychiatric Secretary Name Role Phone Maciej Szymanski DO Primary Care Provider Reason for Visit * Reason Comments Follow-up Encounter Details Date Type Department Care Team (Late st Contact Info) Description 03/05/2013 4:30 PM EDT Office Visit Dermatology [address] [facility] [address] [place] [address] Prosper Schmidt MD [address] [place] [address], [facility] [place] [address] Psoriasis (Primary Dx); Verruca vulgaris Social History [...] Progress Notes * Prosper Schmidt MD - 03/05/2013 5:37 PM EDT Problem is followup verruca vulgaris and psoriasis. Ervin follows up and his psoriasis seems to be slowly worsening on the tapering dose of methotrexate. Back on January 28 we had started a taper, dropping him down very gradually by 1 mg every two weeks. There is 1 more mg to go. He thinks he still has two verrucas present on the left second finger laterally. Physical examination shows minimal verrucous tissue still present, but he does have psoriasis present on the upper forehead extending out beyond the hairline and also some patchy involvement within the frontal hair-bearing parietal scalp. Otherwise careful examination today shows two small guttate lesions of psoriasis on the lower back. Nothing on the abdomen. The right flank site has cleared. Assessment and Plan: 1. Verruca vulgaris, left second finger. a. LN2 times three applied to these sites. b. Return to clinic in one month for repeat check. 2. Psoriasis. a. Continue with the methotrexate taper, and patient today was given samples of ketoconazole shampoo and fluocinolone solution that he can use instead of triamcinolone for the areas of involvement. Also try to get a little bit of sun to help the psoriasis. b. When he returns again in a month, if his scalp and forehead are continuing to flare consider resuming methotrexate. COPY: Maciej Szymanski D.O. documented in this encounter Plan of Treatment Upcoming Encounters Date Type Department Care Team (Late st Contact Info) Description 11/08/2024 3:30 PM EST Office Visit Dermatology at [address] [phone] Prosper Schmidt MD [address] [place] [address], [facility] [place] [address] 12/14/2024 2:40 PM EST Office Visit Cardiology at [address] [phone] Benjie Garrison MD [facility] [place] [address] documented as of this encounter Visit Diagnoses Diagnosis Psoriasis- Primary Other psoriasis Verruca vulgaris Viral warts, unspecified documented in this encounter Care Teams Psychiatric Secretary Relationship Specialty Start Date End Date Maciej Szymanski DO [address] [place] [address] [address] [facility] 1 [place] [address] PCP - General 09/18/10 09/30/22 documented as of this encounter
--- OUTSIDE RECORDS SUMMARY | 2024-10-08 00:40 | XMS_ITS | Encounter Summary ---
Author Organization [facility] [place] [address] Care Team Providers Care Remote Sensing Advisor Name Role Phone Maciej Szymanski DO Primary Care Provider Reason for Visit * Reason Comments Follow-up Encounter Details Date Type Department Care Team (Late st Contact Info) Description 10/29/2012 4:00 PM EST Office Visit Dermatology [address] [facility] [address] [place], [place] [phone] Prosper Schmidt MD [address] [place] [address], [facility] [place] [address] Psoriasis (Primary Dx) Social History Tobacco Use [...] Progress Notes * Prosper Schmidt MD - 10/29/2012 6:03 PM EST Problem: Followup psoriasis on methotrexate. Ervin follows up and is doing well on the lowered dose of methotrexate, now down to just 15 mg p.o. q.week. Physical examination reveals that the psoriasis really is now pretty much cleared with just a minimal amount remaining on his knees. The scalp is clear. The torso remains clear, and his arms are clear. He occasionally gets a little bit of inverse involvement around the scrotum but finds that the triamcinolone cream works well to control that on a p.r.n. basis. Assessment and Plan: Inverse psoriasis with guttate involvement on torso, upper arms, responding beautifully and almost clear on methotrexate. a. Continue gradual methotrexate taper, now dropping to 5 of the 2.5 mg tablets p.o. q.week for a month, then go to four p.o. q.week for a month, then go to three p.o. q.week for a month, then return to clinic for repeat check. b. Methotrexate labs from 10/28/2012 within normal limits. Return to clinic in three months, and we will likely not need to obtain further labs, as we will be tapering him down and off of medication in short order. c. Continue triamcinolone cream 0.1%, applying on a b.i.d. basis p.r.n. for moderate areas of involvement. Return to clinic three months. Copy: Maciej Szymanski D.O. documented in this encounter Plan of Treatment Upcoming Encounters Date Type Department Care Team (Late st Contact Info) Description 11/08/2024 3:30 PM EST Office Visit Dermatology at [address] [phone] Prosper Schmidt MD [address] [place] [address], [facility] [place] [address] 12/14/2024 2:40 PM EST Office Visit Cardiology at [address] [phone] Benjie Garrison MD [facility] [place] [address] documented as of this encounter Visit Diagnoses Diagnosis Psoriasis- Primary Other psoriasis documented in this encounter Care Teams Remote Sensing Advisor Relationship Specialty Start Date End Date Maciej Szymanski DO [address] [place] [address] [address] [place] [address] PCP - General 09/18/10 09/30/22 documented as of this encounter
--- OUTSIDE RECORDS SUMMARY | 2024-10-08 00:40 | XMS_ITS | Referral Summary ---
Author Organization [facility] Address [address] [place] [address] Care Team Providers Care Transmission Specialist Name Role Phone Unavailable Primary Care Provider Unavailabl e Social History Tobacco Use Types Packs/Day Years Used Date Smoking Tobacco: Never Assessed Sex and Gender Information Value Date Recorded Sex Assigned at Not on file Legal Sex Male 18:17 EST Gender Identity Not on file Sexual Orientation Not on file Plan of Treatment Not on file Procedures Procedure Name Priority Date/Time Associated Diagnosis Comments HEPATITIS C AB W REFLEX TO HCV RNA BY PCR Routine 03/27/2022 8:47 EDT from Last 3 Months or Most Recently Relevant to Health Maintenance Results * HEPATITIS C AB W REFLEX TO HCV RNA BY PCR (03/27/2022 8:47 EDT) Hep C Antibody Negative Negative 03/28/2022 10:56 EDT [facility] Blood VENOUS BLOOD / Unknown 03/27/2022 8:47 EDT 03/27/2022 21:11 EDT us Provider Outr Resulting Lab CHEMISTRY & BLOOD GA S ORDERABLES Final Result [facility] [address] [place] [address] from Last 3 Months or Most Recently Relevant to Health Maintenance [place] [address] [address] [address] [place] [address]
--- OUTSIDE RECORDS SUMMARY | 2024-10-08 00:40 | XMS_ITS | Encounter Summary ---
Author Organization [facility] [place] [address] Care Team Providers Care People Manager Name Role Phone Macije Szymanski DO Primary Care Provider [phone] Reason for Visit * Reason Comments Follow-up Encounter Details Date Type Department Care Team (Late st Contact Info) Description 07/23/2013 4:45 PM EDT Office Visit Dermatology [address] [facility] [address] [place] [address] Prosper Schmidt MD [address] [place] [address], [facility] [place] [address] Verruca vulgaris (Primary Dx) Social History Tobacco Use Types [...] Progress Notes * Prosper Schmidt MD - 07/23/2013 5:38 PM EDT Problem List: 1. Followup of verruca vulgaris. 2. Psoriasis and psoriatic arthritis, on methotrexate, Aleve more helpful for the arthritic component. Ervin follows up and still has a little bit of wart present, about 1 mm in diameter, on the left third finger. Physical examination confirms this. Assessment and Plan: 1. Verruca vulgaris, left third finger. a. LN2 times three applied aggressively to site. b. Return to clinic in two weeks for repeat check. c. If still present at that time, may need to consider electrodesiccation of verruca. Note: Today, refills were called in for the patient's triamcinolone 0.1% cream, 80 gram tube, to [facility] in [facility], to apply b.i.d. p.r.n., with three refills. COPY: Maciej Szymanski D.O. documented in this encounter Plan of Treatment Upcoming Encounters Date Type Department Care Team (Late st Contact Info) Description 11/08/2024 3:30 PM EST Office Visit Dermatology at [address] [phone] Prosper Schmidt MD [address] [place] [address], [facility] [address] 12/14/2024 2:40 PM EST Office Visit Cardiology at [address] [phone] Benjie Garrison MD [facility] [place] [address] documented as of this encounter Visit Diagnoses Diagnosis Verruca vulgaris- Primary Viral warts, unspecified documented in this encounter Care Teams People Manager Relationship Specialty Start Date End Date Maciej Szymanski DO [address] [place] [address] PCP - General 09/18/10 09/30/22 documented as of this encounter
--- OUTSIDE RECORDS SUMMARY | 2024-10-08 00:40 | XMS_ITS | Encounter Summary ---
Author Organization [facility] Address [address] [place] [address] Care Team Providers Care Software Intern Name Role Phone Gus Ponce MD Primary Care Provider Encounter Details Date Type Department Care Team (Late st Contact Info) Description 12/12/2021 Lab Requisition [facility] Pathology & Laboratory Medicine - [facility] [address] [place] [address] Keenan Steele MD [address] [place] [address] [phone] Encounter for other general examination Social History Tobacco Use Types Packs/Day Years [...] Priority Date/Time Associated Diagnosis Comments SURGICAL PATHOLOGY Today 12/12/2021 9: 57 EST Encounter for other general examination documented in this encounter Results * SURGICAL PATHOLOGY (12/12/2021 9:57 EST) Note to Patient The following pathology results have been interpreted by your pathologist and may be available to you before your health provider has had the opportunity to review them. Please allow time for your provider to receive these results and explore management options, if applicable. 12/13/2021 10:16 EST [facility] Final Diagnosis A. STOMACH, POLYP, BIOPSY: - Fundic gland polyp. B. ESOPHAGUS, DISTAL, BIOPSY: - Consistent with Huang's esophagus. - Negative for dysplasia. 12/13/2021 10:16 [facility] Attestation By the signature below, the attending physician certifies that they have 1) personally conducted a gross and/or microscopic examination of the described specimen(s), and/or personally interpreted the results of laboratory testing of the described specimen(s), and 2) personally rendered or confirmed the above diagnosis. 12/13/2021 10:16 [facility] at 1016 Clinical History History Huang's esophagus 12/13/2021 10:16 [facility] Gross Description A. Received in formalin labelled with proper patient identification (initials A, P) and gastric polyp is a light crawford tissue measuring 0.7 x 0.2 x 0.1 cm. Submitted intact in A1. B. Received in formalin labelled with proper patient identification (initials A, P) and distal esophagus are 4 pink-white tissues ranging in size from 0.3 x 0.1 x 0.1 cm up to 0.5 x 0.2 x 0.1 cm. Submitted intact in B1. IDALIA CAMPBELL(ASCP) 12/12/2021 18:42 12/13/2021 10:16 [facility] Performing Lab [facility] 12/13/2021 10:16 [facility] Scanned Images 12/13/2021 10:16 [facility] Tissue ENTIRE ESOPHAGUS / Unknown 12/12/2021 9:57 EST 12/12/2021 16:27 EST Tissue specimen (specimen) ESOPHAGEAL STRUCTURE / Unknown 12/12/2021 9:57 EST 12/12/2021 16:27 EST us Kenean Steele MD PATHOLOGY ORDERABLES Fin al Result [facility] [address] [place] [address] documented in this encounter Visit Diagnoses Diagnosis Encounter for other general examination documented in this encounter Care Teams Software Intern Relationship Specialty Start Date End Date Gus Ponce MD [address] [place] [id number] PCP - General Family Medicine - Primary Care 11/27/21 07/28/22 documented as of this encounter
--- OUTSIDE RECORDS SUMMARY | 2024-10-08 00:40 | XMS_ITS | Encounter Summary ---
[place] [address] Care Team Providers Care Store Group Manager Name Role Phone Maciej Szymanski DO Primary Care Provider Reason for Visit * Reason Comments Psoriasis Encounter Details Date Type Department Care Team (Late st Contact Info) Description 07/23/2012 4:45 PM EDT Office Visit Dermatology [address] [facility] [address] [place], [place] [id number] Prosper Schmidt MD [address] [place] [address], [facility] [place] [address] Psoriasis (Primary Dx) Social History Tobacco Use Types Packs/Day Years Used Date Smoking Tobacco: Never Sex and Gender Information Value Date Recorded Sex Assigned at Not on file Gender Identity Not on file Sexual Orientation Not on file documented as of this encounter Progress Notes * Prosper Schmidt MD - 07/23/2012 5:34 PM EDT Dictated documented in this encounter Miscellaneous Notes * Miscellaneous - Bernardo Vital - 07/28/2012 10:05 AM EDT documented in this encounter Plan of Treatment Upcoming Encounters Date Type Department Care Team (Late st Contact Info) Description 11/08/2024 3:30 PM EST Office Visit Dermatology at [place] [address] [facility] [place] [address] Prosper Schmidt MD [address] [facility] [place] [address] 12/14/2024 2:40 PM EST Office Visit Cardiology at [address] [place] [address] Benjie Garrison MD [facility] [place] [address] documented as of this encounter Visit Diagnoses Diagnosis Psoriasis- Primary Other psoriasis documented in this encounter Care Teams Store Group Manager Relationship Specialty Start Date End Date Maciej Szymanski DO [address] [facility] [address] [place] [address] PCP - General 09/18/10 09/30/22 documented as of this encounter
--- OUTSIDE RECORDS SUMMARY | 2024-10-08 00:40 | XMS_ITS | Encounter Summary ---
Author Organization [facility] [place] [address] Care Team Providers Care Children'S Service Worker Name Role Phone Maciej Szymanski DO Primary Care Provider Reason for Visit * Reason Comments Follow-up Encounter Details Date Type Department Care Team (Late st Contact Info) Description 08/13/2013 3:15 PM EDT Office Visit Dermatology [address] [facility] [address] [place] [address] Prosper Schmidt MD [address] [place] [address], [facility] [place] [address] Verruca vulgaris (Primary Dx); Psoriasis Social History Tobacco Use Types Packs/Day [...] Progress Notes * Prosper Schmidt MD - 08/13/2013 3:51 PM EDT Problem List: 1. Followup of verruca vulgaris. 2. Psoriasis and psoriatic arthritis, on methotrexate. Aleve more helpful for the arthritic component. Ervin follows up and still has wart remaining, unfortunately about 4 mm in diameter, on the right third finger. Physical examination confirms this, despite LN2 therapies now on several occasions. Assessment and Plan: 1. Verruca vulgaris, left third finger. a. Discussed option of electrodesiccation versus bleomycin. b. Patient would rather pursue compound W and tape occlusion. c. He will obtain product 15 to 17% salicylic acid-containing product at local pharmacy, apply on a q.h.s. basis and occlude overnight with tape. Return to clinic in August for followup on his psoriasis, which is doing well at the moment. Continue methotrexate 15 mg a week and continue every other day of the week his folate dosing. He has triamcinolone cream to use as needed. COPY: Maciej Szymanski D.O. documented in this encounter Plan of Treatment Upcoming Encounters Date Type Department Care Team (Late st Contact Info) Description 11/08/2024 3:30 PM EST Office Visit Dermatology at [address] [phone] Prosper Schmidt MD [address] [place] [address], [facility] [place] [address] 12/14/2024 2:40 PM EST Office Visit Cardiology at [address] [address] Benjie Garrison MD [facility] [place] [address] documented as of this encounter Visit Diagnoses Diagnosis Verruca vulgaris- Primary Viral warts, unspecified Psoriasis Other psoriasis documented in this encounter Care Teams Children'S Service Worker Relationship Specialty Start Date End Date Maciej Szymanski DO [address] [facility] 1 [place] [address] PCP - General 09/18/10 09/30/22 documented as of this encounter
--- NOTE | 2024-10-08 14:19 | DI.RAD_ITS ---
Exam(s) XR HIP RT COMPLETE AP PELVIS EXAM: XR HIP RT COMPLETE AP PELVIS CLINICAL HISTORY: worsening hip pain,PT NOT HELPING,M25.551. TECHNIQUE: 2D digital imaging was performed. Two views COMPARISON: No exams were available for comparison FINDINGS: BONES: No acute fracture is present. No bony destructive lesion is seen. Severe scoliosis and degen erative changes noted in the lower lumbar spine. JOINTS: No dislocation present. Hip joint spaces are maintained. Mild acetabular spurring. Mild-t o-moderate degenerative changes noted at both SI joints. SOFT TISSUE: Normal. IMPRESSION: Minimal degenerative changes of the hips. Severe degenerative changes lower lumbar spine. Moderate degenerative changes of the SI joints. DATA REPOSITORY: RADIATION DOSE DELIVERED:
== END 2024-10-08 00:52 ==
LOC: DI 00:32
PROVIDERS: PCP Nurse Practitioner Family; Visit Provider Nurse Practitioner Family
DX: M25.551 Pain in right hip (principal)
CPT/HCPCS: 73502

== ENCOUNTER 2024-12-21 02:07 | Outpatient (CLI) | payer OTHER, SELFPAY ==
--- NOTE | 2024-12-21 07:00 | DI.RAD_ITS ---
Exam(s) XR LUMBAR SPINE COMPLETE EXAM: XR LUMBAR SPINE COMPLETE CLINICAL HISTORY: Pain right,scoliosis,lumbar spondylosis,mechanical low back pain,m54.59,. TECHNIQUE: 2D digital imaging was performed. Five views. COMPARISON: CR,XR XR PORTABLE CHEST AP from 11/08/2023 FINDINGS: BONES: No fracture or destructive lesion. Vertebral body heights are maintained. Metallic rods in place in the thoracic upper lumbar levels terminating at the L1 level. Partial sacralization of the left L5 transverse process. Facet degenerative changes present throughout. DISKS: Severe narrowing of the L2-3 disc on the right with prominent endplate osteophytes. Moder ate narrowing of the L1-2 and L 4 5 disc spaces. ALIGNMENT: Thoracic dextroscoliosis. Lumbar levoscoliosis scoliosis. SOFT TISSUE: Normal. IMPRESSION: Scoliosis and advanced degenerative changes. DATA REPOSITORY: RADIATION DOSE DELIVERED:
== END 2024-12-21 02:27 ==
PROVIDERS: PCP Nurse Practitioner Family; Visit Provider Anesthesiology Pain Medicine
DX: M41.26 Other idiopathic scoliosis, lumbar region (principal); M47.816 Spondylosis without myelopathy or radiculopathy, lumbar region
CPT/HCPCS: 72110

== ENCOUNTER 2025-01-18 07:37 | Outpatient (CLI) | payer OTHER, SELFPAY ==
[2025-01-18 07:48] VITALS: BP 109/72; PULSE 90; RESP 20; TEMP 36.7; O2SAT 98
--- NOTE | 2025-01-18 08:17 | PDOC.PAIN_ITS ---
Date of service: 01/18/25 Time of Service: 08:42 Pain Managment Procedure Note Procedure Note Procedure Note: Diagnostic Lumbar Facet Joint Injection ? Location: Right Lumbar Facet Joints ? Levels: L4-5, L5-S1 ? Pre-procedure Diagnosis: M47.817 Spondylosis without myelopathy or radiculopathy, lumbosacral region M47.816 Spondylosis without myelopathy or radiculopathy, lumbar region ? Post-procedure Diagnosis:? The same as above ? Sedation:? None ? Estimated blood loss:? less than 2 cc ? Surgeon: Enoch Lopez MD COMMENT: Pain 02/03 .Decision was made to proceed with intra-articular facet injections for the possibility of not having to do medial branch blocks and radiofrequency ablation if patient get long lasting relief (> 3 months). ? Procedure Detail:? The procedure and potential risks were explained to t he patient and informed written consent was obtained. The patient was escorted to the procedure room and placed in the prone position. Pillows were utilized for proper positioning and comfort.? Time out was performed in the procedure room with nursing staff confirming the patient's identity, procedure to be performed, allergies, and any blood thinning or anti-platelet medications.? Sterile technique was maintained throughout the procedure.? The patient's lumbosacral area was prepped with chlorhexidine and draped in a sterile fashion. Lidocaine 1% was used to anesthetize the skin. An oblique fluoroscopic view was obtained, with visualization of the facet joint.? A 22gauge, Quincke needle was gently advanced through the facet capsule.? Needle placement was confirmed with fluoroscopy in AP, oblique, and lateral views by injecting 0.25cc of contrast.? 20 mg of Depomedrol and 0.5ml of 0.5% bupivacaine was injected into the capsule at L4-5 Right . This was repeat at L5-S1 Right. ? The patient tolerated the procedure well and was transported to recovery area for observation and discharge instructions. Permanent images saved and recorded. Plan:? Follow up prn COMMENT:Pain went from /10 to 11/05. Pain? 80 % better. Will use this as both diagnostic and potentially therapeutic.? With short-term relief from the level that it was not long-lasting then we will proceed with for LMBB #2 and possible radiofrequency ablation Will get MRI lumbar spine if not improved. Will consider right SI joint injection as well. Coding Conscious Sedation used for procedure: No CPT Codes: LMBB (includes Fluoro) Lumbar/Sacral, single lvl - 01402 ([id number] ~G) LMBB (includes Fluoro) Lumbar/Sacral, 2nd lvl - 13765 ([id number] ~G) Additional Codes: Date of Service (98583) Date of service: 01/18/25
[2025-01-18 08:26] VITALS: PULSE 92; O2SAT 100
[2025-01-18 08:30] VITALS: PULSE 98; O2SAT 100
--- NOTE | 2025-01-18 08:44 | DI.RAD_ITS ---
Exam(s) XR PAIN CLINIC LUMBAR SP 2V EXAM: XR PAIN CLINIC LUMBAR SP 2V CLINICAL HISTORY: Dx: Lumbar Spondylosis TECHNIQUE: 2D and realtime digital imaging was performed. Radiologist not present. CONTRAST MATERIAL: None. COMPARISON: No exams were available for comparison FINDINGS: Fluoroscopy was provided for pain management therapy. Multilevel facet joint injections. Please refer to procedure report or details. Radiation Exposure Index: Ka,r=6.89 mGy IMPRESSION: As above. RADIATION DOSE DELIVERED:
[2025-01-18] MEDS: methylPREDNISolone ACETATE 80 MG/ML VIAL IJ (08:46)
[2025-01-18] MEDS: Nerve Block Tray 1 EACH MC (08:46)
[2025-01-18] MEDS: Omnipaque 240 MG/ML 50 ML BTL IJ (08:46)
[2025-01-18] MEDS: Bupivacaine 0.5% Pres-Free 10 ML VIAL IJ (08:46)
== END 2025-01-18 07:38 | disposition home or self-care (01) ==
PROVIDERS: PCP Nurse Practitioner Family; Visit Provider Anesthesiology Pain Medicine
DX: M47.817 Spondylosis without myelopathy or radiculopathy, lumbosacral region (principal); M47.816 Spondylosis without myelopathy or radiculopathy, lumbar region
CPT/HCPCS: 64493; 64494; 72100; J0665; J1010; Q9967

== ENCOUNTER 2025-06-06 15:57 | Outpatient (CLI) | payer OTHER, SELFPAY ==
[2025-06-06 17:35] LABS: ALT 35 U/L (16-63); AST 22 U/L (15-37); Albumin 3.9 g/dL (3.4-5.0); Alkaline Phosphatase 135 U/L (46-116); Anion Gap 10.3 mmol/L (3-11); BUN 16 mg/dL (7-18); Bilirubin, Total 0.4 mg/dL (0.2-1.0); CO2 26.7 mmol/L (21.0-32.0); Calcium 9.1 mg/dL (8.5-10.1); Calculated LDL 33 mg/dL (<100); Chloride 103 mmol/L (98-107); Cholesterol 88 mg/dL (<200); Estimated GFR 87.24 (mL/min/1.73m2); Glucose 132 mg/dL (74-106); HDL Cholesterol 47 mg/dL (>or=40); Potassium 4.3 mmol/L (3.5-5.1); Sodium 140 mmol/L (136-145); Total Protein 7.3 g/dL (6.4-8.2); Triglyceride 40 mg/dL (<150)
[2025-06-06 17:56] LABS: Hemoglobin A1C 8.2 % (<5.7)
[2025-06-07 21:29] LABS: PSA, Screening 1.4 ng/mL (<=3.5)
== END 2025-06-06 15:58 | disposition home or self-care (01) ==
LOC: LBO 15:58
PROVIDERS: Emergency Medicine; PCP Nurse Practitioner Family; Visit Provider Nurse Practitioner Family
DX: Z13.220 Encounter for screening for lipoid disorders (principal); Z12.5 Encounter for screening for malignant neoplasm of prostate; I25.2 Old myocardial infarction; I10 Essential (primary) hypertension; E11.9 Type 2 diabetes mellitus without complications
CPT/HCPCS: 36415; 80053; 80061; 84153; 83036

== ENCOUNTER 2025-08-01 08:52 | Outpatient (CLI) | payer OTHER, SELFPAY ==
--- NOTE | 2025-08-01 06:00 | DI.RAD_ITS ---
Exam(s) XR PAIN CLINIC SACRIOILIAC 2V EXAM: XR PAIN CLINIC SACRIOILIAC 2V CLINICAL HISTORY: DX: Sacroiliac Dysfunction TECHNIQUE: 2D and realtime digital imaging was performed. CONTRAST MATERIAL: Refer to procedure report. COMPARISON: No exams were available for comparison FINDINGS: Fluoroscopy was provided for Dr. Lopez during the performance of a right sacroiliac joint injection. Please refer to the procedure report for complete details. Ka,r=6.37 mGy IMPRESSION: RADIATION DOSE DELIVERED: 0.0 0.0 0
[2025-08-01 08:58] VITALS: PULSE 94; RESP 20; TEMP 37.2; O2SAT 96
--- NOTE | 2025-08-01 09:27 | PDOC.PAIN ---
Date of service: 08/01/25 Time of Service: 09:51 Pain Managment Procedure Note Procedure Note Procedure Note: ?Sacroiliac Joint Steroid Injection ? Location: ? Right SI Joint? Pre-procedure Diagnosis: Sacroiliitis, not elsewhere classified - M46.1 ? Post-procedure Diagnosis:? The same as above ? Sedation:? NONE ? Medication: Depo-Medrol 40 mg, bupivacaine 0.5% 1 mL, Omnipaque 0.25 mL per joint ? Estimated blood loss:? less than 2 cc ? Surgeon:? Enoch Lopez MD ? COMMENT: Patient previously had right facet injections at L L4-5 and L5-S1 with some relief but he still having significant pain. This was back in December 2024. He was reevaluated by Dr. Land and SI joint injection was recommended. THIS WILL BE BOTH DIAGNOSTIC AND THERAPEUTIC A1c was 8.2 in May. Blood sugar this morning fingerstick was 134.. ? Procedure Detail:? The procedure and potential risks were explained to the patient and informed written consent was obtained. The patient was escorted to the procedure room and placed in the prone position. Pillows were utilized for proper positioning and comfort. Time out was performed in the procedure room with nursing staff confirming the patient's identity, procedure to be performed, allergies, and any blood thinning or anti-platelet medications. The patient's lumbosacral area was prepped with ChloraPrep and draped in a sterile fashion. Sterile technique was maintained throughout the procedure.? Sterile gloves were used, a face mask was worn, and new single dose vials of all medications were used with the top being swabbed with alcohol and given time to dry prior to withdrawal of medication. Lidocaine 1% was used to anesthetize the skin. With fluoroscopic guidance, a 22-gauge 3.5 spinal needle was advanced into the posteroinferior aspect of the Right SI joint . Confirmation of intra-articular position of the needle tip was obtained with injection of 0.25cc of Omnipaque 240 contrast which showed appropriate spread within the joint.? Following negative aspiration, 40mg of methylprednisolone mixed with 1 mL of bupivacaine 0.5% was injected.? The needle was gently removed. ?The patient tolerated the procedure well and was discharged home with instructions.? Permanent images saved and recorded. Plan:? Follow up prn. PAIN PRE PROCEDURE 10 POST PROCEDURE 010 COMMENT: 100 % BETTER AFTER INJECTION. If pain not relieved would reevaluate in the office and consider diagnostic medial branch blocks Coding Conscious Sedation used for procedure: No CPT Codes: SI Joint Inj; incl Fluoro - 25260 ([id number] ~G) Additional Codes: Date of Service (03807) Date of service: 08/01/25 Diagnoses: Yeah Sacroiliitis, not elsewhere classified - M46.1
[2025-08-01] MEDS: Bupivacaine 0.5% Pres-Free 10 ML VIAL IJ (09:50)
[2025-08-01] MEDS: methylPREDNISolone ACETATE 80 MG/ML VIAL IJ (09:51)
[2025-08-01] MEDS: Omnipaque 240 MG/ML 50 ML BTL IJ (09:52)
[2025-08-01] MEDS: Nerve Block Tray 1 EACH MC (09:54)
[2025-08-01 09:57] VITALS: PULSE 90; O2SAT 95
== END 2025-08-01 08:53 | disposition home or self-care (01) ==
LOC: PC 08:52
PROVIDERS: PCP Nurse Practitioner Family; Visit Provider Anesthesiology Pain Medicine
DX: M46.1 Sacroiliitis, not elsewhere classified (principal)
CPT/HCPCS: 27096; 72200; J0665; J1010; Q9967

== ENCOUNTER 2025-10-07 07:03 | Day surgery (SDC) | payer OTHER, SELFPAY ==
--- NOTE | 2025-10-06 16:58 | W.PM.DSUDISC ---
Date of service: 10/07/25 Discharge Plan Disposition Patient Disposition: Home Condition: Good Discharge Details Reason For Visit: Screening colonoscopy and EGD Attending Provider: Esa Orozco Primary Care Provider: Ermias Teague Home Meds and New Rx's Prescriptions: Continued aspirin 81 mg tablet,chewable 81 mg PO DAILY Rx Instructions: per [facility] discharge atorvastatin 80 mg tablet 80 mg PO QHS Rx Instructions: per [facility] discharge nitroglycerin 0.4 mg tablet, sublingual 0.4 mg sublingual Q5M PRN Rx Instructions: per [facility] discharge spironolactone 25 mg tablet 12.5 mg PO DAILY Rx Instructions: per [facility] discharge calcipotriene 0.005 % cream 1 applic topical BID Rx Instructions: per [facility] discharge ketoconazole 2 % cream 1 applic topical DAILY Qty: 120 6RF Rx Instructions: Apply to toenails once daily Enbrel SureClick 50 mg/mL (1 mL) pen injector 50 mg subcut QWEEK Patient Comments: plans to start later today metformin 1,000 mg tablet 1,000 mg PO BID Qty: 180 4RF metoprolol succinate 50 mg tablet extended release 24 hr 50 mg PO DAILY Qty: 90 3RF Jardiance 25 mg tablet 25 mg PO DAILY Qty: 90 3RF (DME) back brace Misc See Rx Instructions .Route Qty: 1 0RF Rx Instructions: As comfort measure insulin glargine [Lantus Solostar U-100 Insulin] 100 unit/mL (3 mL) insulin pen 22 unit IM/SC BID Qty: 40 3RF Rx Instructions: 21 units in the morning and 18 units HS insulin aspart U-100 [Novolog FlexPen U-100 Insulin] 100 unit/mL (3 mL) insulin pen 5 unit subcut AC Qty: 15 8RF TEST STRIPS 1 EACH strip 1 ea Miscellaneous BID Qty: 180 4RF Rx Instructions: Freestyle lite. Dx: 250.0 ascorbic acid (vitamin C) [Vitamin C] 500 MG tablet 1 tab PO DAILY fluticasone propionate 16 GM spray,suspension 1 - 2 spr NS DAILY PRNQty: 1 Rx Instructions: for post nasal drip (DME) pen needle, diabetic [Novofine 32] 32 gauge x 1/4 needle 1 ea Miscellaneous DAILY Qty: 360 3RF Rx Instructions: as needed. variable (DME) pen needle, diabetic [Pen Needle] 32 gauge x 5/32 needle See Rx Instructions .Route Qty: 100 3RF Rx Instructions: As directed (DME) FreeStyle Chepe 2 Sensor Kit See Rx Instructions .ROUTE .MEDSUPPLY Qty: 2 12RF Rx Instructions: As directed acetaminophen 500 mg tablet 500 mg PO Q6H PRN PRN (Reason: pain) Qty: 40 3RF omeprazole 20 mg Capsule,Delayed Release(Dr/Ec) 20 mg PO BID Discontinued bisacodyl [Dulcolax (bisacodyl)] 5 mg tablet,delayed release (DR/EC) 5 mg PO ONCE Qty: 4 0RF Rx Instructions: take per colonoscopy instructions polyethylene glycol 3350 17 gram/dose powder 238 g PO ONCE Qty: 238 0RF Rx Instructions: take per colonoscopy instructions Discharge Instructions Instructions: Huang's esophagus, Stomach polyps Additional Instructions: Ervin, was good to see you today, and hope you feel well after the procedure. Things went very smoothly. With regards to the upper endoscopy, you do have signs of Huang's esophagus. Similar to your previous endoscopy, I did multiple biopsies of this area for surveillance. I also saw a hiatal hernia consistent with your previous testing. Finally, there are some polyps in your stomach. This is extremely common, and generally these polyps are nothing to worry about. I did remove 2 of them today, and I will send them to the pathologist for their review. Once I have the results of all this information, I will be in touch with recommendations for your next upper endoscopy. With regards to the colonoscopy, everything is normal. I saw no signs of tumors or polyps, or anything to worry about. With no other significant risk factors for colon cancer, I recommend a 10-year interval for your next colonoscopy. My office will be in touch once we have the results of the upper endoscopy pathology report. If you need anything in the meantime, do not hesitate to call. 1. If tolerated, consume a soft, low fiber diet for 1-2 days. 2[address] Do not drive, drink alcohol, operate machinery, make critical decisions, or do activities that require coordination or balance for 24 hours. 3. Because air was put into your colon during the procedure, expelling air from your rectum (passing gas or farting) is normal. 4. You may not have a bowel movement for 1-3 days because of the colonoscopy prep. This is normal. 5. You may experience a sore throat for 24 to 48 hours. You may use throat lozenges or gargle with warm salt water to relieve the discomfort. 6. Because air was put into your stomach during the procedure, you may experience some belching. 7. Go directly to the emergency room if you notice any of the following: Develop chills (warm to touch), or if you have a thermometer and your temperature is above 101 Difficulty breathing or difficultly swallowing Persistent vomiting Severe abdominal pain, other than gas cramps Severe chest pain Black, tarry stools Any bleeding ? exceeding one tablespoon 8. Call your physician if the site where your intravenous was started becomes red, swollen, painful, and warm to touch. 9. Your physician has reviewed your pre-procedure medications. Please continue to take those medications as previously ordered. You will be given specific information/education regarding any changes to your medications before leaving. Stand Alone Forms: Anesthesia Discharge Inst., Hay Hendrickson (DSU), Portal Information Activity:: Activity as Tolerated Diet:: As Tolerated Discharge Orders Discharge Orders: Discharge Order (Routine); Ordered 10/06/25 Ordered By: Esa Orozco DS: Diagnosis Discharge Diagnosis (1) Encounter for screening colonoscopy: Status: Acute Asessment and Plan: Follow-up on biopsy and polypectomy results
--- NOTE | 2025-10-06 17:00 | W.PM.ENDDOP ---
Date of service: 10/07/25 Time of Service: 09:06 Endoscopy Report DATE OF PROCEDURE: 10/07/25 PRE-OP DIAGNOSIS: Screening EGD and colonoscopy POST-OP DIAGNOSIS: other (Huang's esophagus extending from 35 cm to SC incisors to 38 cm, gastric polyps, Hill grade 3 hiatal hernia; negative colonoscopy) PROCEDURE: EGD with biopsies and polypectomy and colonoscopy SURGEON: Esa Orozco ANESTHESIA TYPE: General:No Airway ESTIMATED BLOOD LOSS: 10 PATHOLOGY: other (Four-quadrant biopsies of short segment Huang's esophagus, gastric polyps x 2) COMPLICATIONS: None DISPOSITION: same day INDICATIONS: Ervin is a 59-year-old male with longstanding gastroesophageal reflux disease who needs a screening EGD to rule out Huang's esophagus, as well as screening colonoscopy PREP: Miralax/Dulcolax PROCEDURE START TIME: 08:25 PROCEDURE END TIME: 08:55 COLONOSCOPY RETRACTION TIME: 9 FINDINGS: Short segment Huang's esophagus, gastric polyps, normal colonoscopy PROCEDURE DESCRIPTION: After the initiation of monitored anesthetic care, and with the assistance of a bite block, I advanced a standard gastroscope through the mouth past the hypopharynx and into the esophagus.? Under the direct vision of the scope, I advanced down the esophagus towards the stomach.? The upper, and midesophagus were normal in course and caliber. There is irregularity of the Z-line which is encountered at 35 cm past the incisors. This extends down to the GE junction at 38 cm past the incisors. Narrowband imaging was used to assist with the analysis, and did appear consistent with Huang's esophagus. I advanced down through the GE junction into the stomach with ease. I performed retroflexion. There is a Hill grade 3 hiatal hernia. There is no evidence of any inflammation around the hiatus of the hernia. There are a number of gastric polyps restricted to the cardia and fundal area. Everything passed the incisura angularis is normal and healthy appearing. 2 of the polyps appeared to exceed 1 cm, and these were removed with cold snare polypectomy. There was minimal bleeding. I then brought the camera back up to the GE junction and perform four-quadrant biopsies of the pathologic segment. These were performed with cold forceps with minimal bleeding. Next, I emptied the stomach, withdrew the camera along the length of the esophagus 1 last time. No other abnormalities were appreciated. Ervin was then rolled into the left lateral decubitus position. Great care was taken to ensure that he was padded and supported appropriately. I began by performing an external anorectal exam.? Perineum and skin were normal, as was the anal verge.? There was no evidence of external hemorrhoids.? Next, I performed a digital rectal exam.? I did not appreciate any abnormal findings.? Next, I advanced a colonoscope into the rectal vault.? I performed retroflexion.? This appeared normal.? Using insufflation, I then advanced the colonoscope beyond the rectal folds and into the sigmoid colon before advancing towards the cecum.? The scope was noted to be in the cecum by identification of the ileocecal valve and appendiceal orifice.? There was some retained solid food product in the cecum. All of this was irrigated clean until the mucosa was completely viewable. The ileocecal valve appeared normal. I then began withdrawing the colonoscope using repeated irrigation as necessary for full evaluation of the colonic mucosa. ?Once the scope was withdrawn to the level of the rectum, great care was taken to examine portions of the rectal folds.? The [place] bowel prep score from right to left was 1, 3, 3. I saw no signs of any tumors, polyps, or any other worrisome pathology. Finally, the scope was withdrawn and the patient was brought to the same-day surgery recovery unit as the anesthetic wore off. ?The findings and instructions were shared with the patient prior to discharge.
[2025-10-07 07:21] VITALS: BP 102/78; PULSE 102; RESP 15; TEMP 36.4; O2SAT 99
[2025-10-07] MEDS: Lactated Ringers 1,000 ML 80 ML IV (07:43)
--- NOTE | 2025-10-07 08:05 | W.ANESPRE ---
General Info Date of Service Date Performed: 10/07/25 Height: 5 ft 7 in Weight: 62.4 kg Body Mass Index (BMI): 21.5 Surgical Procedure: Operation Date: 10/07/25 08:20 Proposed Procedure Side Surgeon p Colonoscopy/Gastroscopy Esa Orozco MD Meds Allergies and Home Medications Allergies Allergy/AdvReac Type Severity Reaction Status Date / Time Sulfa (Sulfonamide AdvReac Intermediate NAUSEA Verified 10/07/25 07:15 Antibiotics) DUST Allergy Intermediate NASAL Uncoded 10/07/25 07:15 CONGESTION Home Medication ?Medication ?Instructions ?Recorded ascorbic acid (vitamin C) 500 mg 1 tab PO DAILY 06/02/15 tablet (Vitamin C) fluticasone propionate 50 1 - 2 spr NS DAILY PRN ##1 10/15/15 mcg/actuation nasal spray,suspension acetaminophen 500 mg tablet 500 mg PO Q6H PRN PRN pain #40 tabs 12/31/21 omeprazole 20 mg capsule,delayed 20 mg PO BID 05/30/22 release aspirin 81 mg chewable tablet 81 mg PO DAILY 11/14/23 atorvastatin 80 mg tablet 80 mg PO QHS 11/14/23 calcipotriene 0.005 % topical cream 1 applic topical BID 11/14/23 nitroglycerin 0.4 mg sublingual 0.4 mg sublingual Q5M PRN 11/14/23 tablet spironolactone 25 mg tablet 12.5 mg PO DAILY 11/14/23 ketoconazole 2 % topical cream 1 applic topical DAILY #120 grams 01/06/24 etanercept 50 mg/mL (1 mL) 50 mg subcut QWEEK 03/24/24 subcutaneous pen injector (Enbrel SureClick) pen needle, diabetic 32 gauge x #360 units 02/14/2510/30 (Novofine 32) pen needle, diabetic 32 gauge x #100 ea 02/23/25 (Pen Needle) empagliflozin 25 mg tablet 25 mg PO DAILY #90 tab-caps 03/17/25 (Jardiance) back brace #1 ea 03/24/25 metformin 1,000 mg tablet 1,000 mg PO BID #180 tab-caps 05/27/25 metoprolol succinate 50 mg 50 mg PO DAILY #90 tabs 05/27/25 tablet,extended release 24 hr flash glucose sensor (FreeStyle #2 ea 06/30/25 Chepe 2 Sensor kit) insulin glargine 100 unit/mL (3 22 unit (0.22 mL) IM/SC BID #40 mL 09/02/25 mL) subcutaneous pen (Lantus Solostar U-100 Insulin) insulin aspart U-100 100 unit/mL 5 unit (0.05 mL) subcut AC #15 mL 09/29/25 (3 mL) subcutaneous pen (Novolog FlexPen U-100 Insulin aspart) Current Visit Medications: Current Medications Generic Name Dose Route Start Last Admin Trade Name Freq PRN Reason Stop Dose Admin Ringer's Solution 1,000 mls @ 80 mls/hr 10/07/25 06:00 10/07/25 07:43 IV 10/07/25 23:59 80 mls/hr INFUSION ELMO Administration Sodium Chloride 0 ml 10/07/25 06:00 Normal Saline Flush 10 Ml Syr IV 10/07/25 23:59 PRN PRN Sodium Chloride 0 ml 10/07/25 06:00 Normal Saline 10 Ml Vial IJ 10/07/25 23:59 DIRECTED PRN Sterile Water 0 ml 10/07/25 06:00 Water,Injection,Sterile 10 Ml Vial IJ 10/07/25 23:59 DIRECTED PRN PFSH Active Problems Active Problems: Problem Status Onset Code Encounter for screening colonoscopy Acute Z12.11 Sacroiliac joint dysfunction of right side Acute M53.3 Pain disorder associated with psychological and physical factors Acute F45.42 Chronic idiopathic pain syndrome Acute G89.29 Mechanical low back pain Acute M54.59 Lumbar spondylosis Acute M47.816 Right hip pain Acute M25.551 History of cardiac cath Chronic Z98.890 Tinea pedis Acute B35.3 Nail dystrophy Acute L60.3 Scoliosis Acute M41.9 Pes planus of both feet Acute M21.41, M21.42 Psoriatic arthritis Acute L40.50 Psoriasis Chronic L40.9 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 Acute K22.70 Gastroesophageal reflux disease with esophagitis Chronic 08/09/15 K21.0 History of tobacco use Acute Z87.891 Insulin dependent type 2 diabetes mellitus, uncontrolled Chronic E11.65, Z79.4 Medical History Medical History History of heart attack stent in Nov 2023 COVID-19 07/2021 uri symptoms Hx of scoliosis COVID 08/16 breakthrough infection-Mild symptoms: coughing, sneezing, mild congestion Umbilical pain Right flank pain Abscess of right ring finger Cellulitis of right ring finger (~02/20/21) Weight loss Stress reaction, emotional Psoriatic arthritis (10/02/12) Psoriasis Peptic reflux disease Osteoporosis (08/18/15) Male infertility Idiopathic scoliosis Adorno Moreno placed at age 15; chest deformity; likely restrictive lung disease Gout (08/26/12) Cataract O.D. Arthritis (10/02/12) PSORIATIC Anemia (08/18/15) iron deficiency extensive GI workup. Seen Heme at [facility]. idiopathic but perhaps occult GI bleed Surgical History Surgical History History of cataract removal with insertion of prosthetic lens spinal canal structure surgery adorno moreno placed age 15 EGD/[facility] (08/09/15) [facility] EGD - MAC (~11/2021) Extraction of cataract (~2009) Tobacco Smoking/Tobacco Use Status: Former Tobacco Use Passive smoking exposure: Yes Second hand exposure: No Alcohol Alcohol Intake: former Substance Use Substance use: Never Substance use type: does not use Vital Signs and Lab Results Vital Signs Most Recent Vital Signs in EMR: Most Recent Vital Signs Temp Pulse Resp BP Pulse Ox 36.4 C L 102 H 15 102/78 99 10/07/25 07:21 10/07/25 07:21 10/07/25 07:21 10/07/25 07:21 10/07/25 07:21 Point of Care Results Point of Care Results: Finger Stick Blood Glucose 133 10/07/25 07:48 Anesthesia Assessment and Plan Anesthesia History Personal History: No History of Anesthesia Complications Family History: No Family History of Anesthesia Complications Exercise Tolerance Exercise Tolerance: Metabolic Equivalents>4 Pertinent Negatives Pertinent Negatives: No Major Pulmonary Symptoms or Complaints Cardiac & Pulmonary Exam Cardiac Exam: Normal S1/S2 Heart Sounds Pulmonary Exam: Clear Bilateral Breath Sounds Implantable Cardiac Device Does patient have a Pacemaker or an ICD?: No Airway Exam Known Difficult Airway: No Mallampati Class: 2 Mouth Opening: Normal (> 3cm) Thyromental Distance: Greater than 3 cm Neck Range of Motion: Full ROM Neck Circumference: Normal Teeth Condition: Generalized Poor Dentition (Some missing upper right and wisdom tooth.) ASA Classification ASA Score: ASA 3 Emergency Case?: No NPO Status NPO Status: NPO Clears >2 hours, Solids >8 hours Anesthesia Plan Resuscitation Status: Full Code Anesthesia Technique: General Anesthesia Airway Planned: Natural Airway Monitors Used: Standard Monitors
[2025-10-07 08:08] VITALS: BMI 21.5
--- NOTE | 2025-10-07 08:27 | STOM_PTH ---
PATIENT: Ervin Helms LOC: [facility] U#:[id number] AGE/SX: 59/M ROOM: RE10/07/[address]: Esa Orozco MD : 1965 BED: DIS: 10/07/2025 SPEC #: [id number] RECD: 10/07/25 12:28 STATUS: [facility] #: [id number] SUGEY: 10/07/25 08:[address]: Esa Orozco DEPT: Surgical Specimen RECD BY: Karen Santiago ENTERED: 10/07/25 12:29 SP TYPE: STOMACH OTHR DR: Ermias Teague, HONEY Tissues: 1 - ESOPHAGUS BIOPSY 2 - STOMACH BIOPSY Procedures: GROSS AND MICRO LEVEL 4 Comments: [id number]
[2025-10-07 09:01] VITALS: BP 91/65; PULSE 88; RESP 16; TEMP 36.3; O2SAT 95
--- NOTE | 2025-10-07 09:10 | W.ANESPOSTOP ---
Postoperative Evaluation Date, Time and Location Date Performed: 10/07/25 Time Performed: 09:10 Patient Location: Day Surgery Unit Vital Signs Most Recent Imported Vital Signs: Most Recent Vital Signs Temp Pulse Resp BP Pulse Ox 36.3 C L 88 16 91/65 L 95 10/07/25 09:01 10/07/25 09:01 10/07/25 09:01 10/07/25 09:01 10/07/25 09:01 Pain Score Most Recent Pain Score: Most Recent Pain Score Pain Level 0 10/07/25 09:01 Assessment Mental Status: Awake (Alert & Oriented to Patient Baseline) Airway and Respiratory Function: Patent airway with normal (patient baseline) respiratory exam Cardiovascular Function: Hemodynamically Stable Hydration Status: Adequately Hydrated Nausea & Vomiting: No Nausea or Vomiting Pain: Pt. Denies Any Pain Peripheral Nerve Block: Patient did not receive a nerve block
[2025-10-07 09:31] VITALS: BP 99/85; PULSE 88; RESP 16; TEMP 36.4; O2SAT 97
== END 2025-10-07 09:43 | disposition home or self-care (01) ==
LOC: SUR 07:03
PROVIDERS: PCP Nurse Practitioner Family; Visit Provider Surgery
PROC: (CPT 43239; principal; 2025-10-07 08:15)
DX: Z12.11 Encounter for screening for malignant neoplasm of colon (principal); K44.9 Diaphragmatic hernia without obstruction or gangrene; K31.7 Polyp of stomach and duodenum; K22.70 Barrett's esophagus without dysplasia; K21.9 Gastro-esophageal reflux disease without esophagitis
CPT/HCPCS: 43239; 45378; 88305; J1805; J2003; J2371; J2704